=== PATIENT | female | born 1960 | race Caucasian/White ===

== ENCOUNTER 2021-05-03 10:26 | Inpatient (IN) | payer BC, OTHER ==
[~2021-05-03] VITALS: Ht 165.1 cm; Wt 102.1 kg
[2021-05-03] VITALS (10 sets, daily range): BP systolic 86–164; BP diastolic 54–95
[~2021-05-03 10:26] MED LIST: ALBU2.5V5 NEB; APIX5TAB PO; ESCITALOPRAM OX20 MG PO; FURO-68 PO; LEVO750T5 PO; NEBU-132 MC; OMEP20CA16 PO; PRIM50TA24 PO; QUET25TA5 PO
[2021-05-03] MEDS ORDERED: PROPOFOL 100 ML IV ONE (10:43)
[2021-05-03] MEDS ORDERED: SODIUM BICARB ADULT 8.4% 50 MEQ/50 ML DISP.SYRIN. ONE (11:00)
[2021-05-03] MEDS ORDERED: EPINEPHrine SYRINGE 1 MG/10 ML SYRINGE. ONE (11:00)
[2021-05-03] MEDS ORDERED: CALCIUM CHLORIDE 1,000 MG/10 ML DISP.SYRIN ONE (11:00)
[2021-05-03 11:05] LABS: BASO # 0.2 x10^3/uL (0.0-0.2); BASO % 1 % (0-3); EOS # 0.3 x10^3/uL (0.0-0.7); EOS % 2 % (0-3); HEMATOCRIT 33.2 % (36.0-47.0); HEMOGLOBIN 10.4 g/dL (12.0-15.5); LYMPH # 11.6 x10^3/uL (1.0-4.8); LYMPH % 57 % (24-48); MEAN CORPUSCULAR HEMOGLOBIN 28 pg (25-35); MEAN CORPUSCULAR HGB CONC 31 g/dL (31-37); MEAN CORPUSCULAR VOLUME 91 fL (79-100); MONO # 1.3 x10^3/uL (0.0-1.1); MONO % 7 % (0-9); NEUT # 6.8 x10^3/uL (1.8-7.7); NEUT % 34 % (31-73); PLATELET COUNT 322 x10^3/uL (140-400); RED BLOOD COUNT 3.65 x10^6/uL (3.50-5.40); RED CELL DISTRIBUTION WIDTH 14.3 % (11.5-14.5); WHITE BLOOD COUNT 20.2 x10^3/uL (4.0-11.0)
[2021-05-03 11:09] LABS: PROTHROMBIN TIME PATIENT 13.4 SEC (11.7-14.0)
[2021-05-03 11:11] LABS: ALBUMIN 2.7 g/dL (3.4-5.0); ALBUMIN/GLOBULIN RATIO 0.8 (1.0-1.7); CALCIUM 8.1 mg/dL (8.5-10.1); CREATININE 0.8 mg/dL (0.6-1.0); GFR 72.4; TOTAL BILIRUBIN 0.1 mg/dL (0.2-1.0); TOTAL PROTEIN 6.3 g/dL (6.4-8.2)
[2021-05-03 11:13] LABS: D-DIMER 2.06 ug/mlFEU (0.00-0.50)
[2021-05-03 11:14] LABS: POTASSIUM 2.6 mmol/L (3.5-5.1)
[2021-05-03] MEDS ORDERED: NOREPINEPHRINE VIAL 8 MG in IV DEXTROSE 5% 250 ML IV ONE (11:15)
--- NOTE | 2021-05-03 11:17 | RAD ---
EXAM: Chest, single view. HISTORY: Shortness of breath. COMPARISON: 04/27/2021 FINDINGS: A frontal view of the chest is obtained. There is an endotracheal tube within the right sheron nstem bronchus. There is a nasogastric tube within the stomach. There has been interval increase in d iffuse interstitial infiltrate. No pleural effusion or pneumothorax is seen. There is a stable cardia c silhouette. IMPRESSION: 1. Right mainstem bronchus intubation. Endotracheal tube retraction by approximately 4 cm is recommen ded. 2. Increase in diffuse interstitial infiltrate. Findings were discussed with Noemy in the ED at 1115 hours on 05/03/2021. Electronically signed by: Lisa Griffin MD (05/03/2021 11:14 AM) [id number]
--- NOTE | 2021-05-03 11:23 | PHYS DOC ---
Past Medical History Past Medical History: CHF Past Surgical History: Other Additional Past Surgical Histo: recent trach scar Smoking Status: Never Smoker Alcohol Use: None Adult General Chief Complaint Chief Complaint: RESP ARREST HPI HPI Patient is a 61 year old female brought in by EMS as a cardiac arrest. History obtained from EMS and patient's family. Reportedly patient was just released from the hospital several days ago for a pseudomonal pneumonia and this morning started coughing up blood. Patient was feeling more short of breath so they called 911. Patient had a high CO2 for EMS and they were trying to place BiPAP on her and then noted that her heart rhythm was becoming bradycardic and then she lost pulses and EMS was started by EMS when [facility] of [facility]. Patient continued with chest compressions in the emergency department and was given 2 doses of epinephrine and patient was intubated promptly and shortly after being intubated she regained pulses. Patient is a full code per the family. Review of Systems Review of Systems Unable to be obtained due to her mental status Current Medications Current Medications Current Medications Medications (Trade) Dose Ordered Sig/Qing Start Time Stop Time Status Last Admin Dose Admin Norepinephrine Bitartrate 8 mg/ Dextrose 258 ml @ 19.35 mls/ hr 1X ONCE 05/03/21 11:15 05/04/21 00:34 05/03/21 11:20 19.35 MLS/HR Propofol 100 ml @ As Directed STK-MED ONCE 05/03/21 10:43 05/03/21 10:43 DC Allergies Allergies Allergies Coded Allergies Type Severity Reaction Last Updated Verified Penicillins Allergy Intermediate EDEMA 03/26/21 No latex Allergy Intermediate 03/26/21 Yes azithromycin Adverse Reaction Intermediate Anxiety 04/25/21 No Physical Exam Physical Exam Constitutional: Chest compressions being done HENT: Normocephalic, atraumatic Eyes: Pupils 4 mm and minimally reactive Neck: Old tracheostomy scar noted on anterior neck Cardiovascular: No pulses present Lungs & Thorax: Breath sounds minimally present with bagging Abdomen: No distention Skin: Cool and pale Back: No trauma Extremities: No edema Neurologic: Unresponsive Current Patient Data Vital Signs Vital Signs Date Time Temp Pulse Resp B/P (MAP) Pulse Ox O2 Delivery O2 Flow Rate FiO2 05/03/21 11:15 114 14 100/83 (89) 97 Ventilator 05/03/21 10:36 97.5 15.0 97.5 Lab Values Laboratory Tests Test 05/03/21 10:40 05/03/21 11:26 White Blood Count 20.2 x10^3/uL (4.0-11.0) H Red Blood Count 3.65 x10^6/uL (3.50-5.40) Hemoglobin 10.4 g/dL (12.0-15.5) L Hematocrit 33.2 % (36.0-47.0) L Mean Corpuscular Volume 91 fL (79-100) Mean Corpuscular Hemoglobin 28 pg (25-35) Mean Corpuscular Hemoglobin Concent 31 g/dL (31-37) Red Cell Distribution Width 14.3 % (11.5-14.5) Platelet Count 322 x10^3/uL (140-400) Neutrophils (%) (Auto) 34 % (31-73) Lymphocytes (%) (Auto) 57 % (24-48) H Monocytes (%) (Auto) 7 % (0-9) Eosinophils (%) (Auto) 2 % (0-3) Basophils (%) (Auto) 1 % (0-3) Neutrophils # (Auto) 6.8 x10^3/uL (1.8-7.7) Lymphocytes # (Auto) 11.6 x10^3/uL (1.0-4.8) H Monocytes # (Auto) 1.3 x10^3/uL (0.0-1.1) H Eosinophils # (Auto) 0.3 x10^3/uL (0.0-0.7) Basophils # (Auto) 0.2 x10^3/uL (0.0-0.2) Segmented Neutrophils % 36 % (35-66) Band Neutrophils % 4 % (0-9) Lymphocytes % 52 % (24-48) H Monocytes % 5 % (0-10) Eosinophils % 1 % (0-5) Metamyelocytes % 2 % (0-0) H Smudge Cells Present Platelet Estimate Adequate (ADEQUATE) Anisocytosis Slight Prothrombin Time 13.4 SEC (11.7-14.0) Prothrombin Time INR 1.0 (0.8-1.1) Activated Partial Thromboplast Time 34 SEC (24-38) D-Dimer (Eun) 2.06 ug/mlFEU (0.00-0.50) H Sodium Level 141 mmol/L (136-145) Potassium Level 2.6 mmol/L (3.5-5.1) *L Chloride Level 101 mmol/L (98-107) Carbon Dioxide Level 32 mmol/L (21-32) Anion Gap 8 (6-14) Blood Urea Nitrogen 5 mg/dL (7-20) L Creatinine 0.8 mg/dL (0.6-1.0) Estimated GFR (Cockcroft-Gault) 72.4 BUN/Creatinine Ratio 6 (6-20) Glucose Level 266 mg/dL (70-99) H Lactic Acid Level 6.9 mmol/L (0.4-2.0) *H Calcium Level 8.1 mg/dL (8.5-10.1) L Total Bilirubin 0.1 mg/dL (0.2-1.0) L Aspartate Amino Transferase (AST) 34 U/L (15-37) Alanine Aminotransferase (ALT) 31 U/L (14-59) Alkaline Phosphatase 73 U/L (46-116) Troponin I High Sensitivity 18 ng/L (4-50) FE-Nee-K-Type Natriuretic Peptide 481 pg/mL (0-124) H Total Protein 6.3 g/dL (6.4-8.2) L Albumin 2.7 g/dL (3.4-5.0) L Albumin/Globulin Ratio 0.8 (1.0-1.7) L Lipase 74 U/L (73-393) Influenza Type A Antigen Negative (NEGATIVE) Influenza Type B Antigen Negative (NEGATIVE) SARS-CoV-2 Antigen (Rapid) Negative (NEGATIVE) Laboratory Tests 05/03/21 10:40 Laboratory Tests 05/03/21 10:40 EKG EKG Sinus tachycardia at 140 bpm with leftward axis no ST elevation or depression normal T waves Radiology/Procedures Radiology/Procedures Indication: Respiratory failure Consent: Unable to give consent due to emergent nature. Medications Used: see nursing note Procedure: The patient was placed in the appropriate position. Intubation was performed glide scope visualization with a 7.5 ET tube endotracheal tube. ET tube secured at 22 cm at the lip. Initial confirmation of placement included bilateral breath sounds, tube fogging, adequate chest rise, adequate pulse oximetry reading. A chest x-ray to verify correct placement of the tube showed appropriate tube position. The patient tolerated the procedure well. Complications Initial right stem mainstream bronchus that was withdrawn and improved position confirmed with repeat chest x-ray Indication: Vascular access Consent: The patient provided consent for this procedure. Procedure: The patient was positioned appropriately and the skin over the R IJ VEIN was prepped and draped in a sterile fashion. Local anesthesia was used. U ltrasound guidance utilized. A large bore needle was used to identify the vein. A guide wire was then inserted into the vein through the needle. A triple lumen catheter was then inserted into the vessel over the guide wire using the Seldinger technique. All ports showed good, free flowing blood return and were flushed with saline solution. The catheter was then securely fastened to the skin with sutures and covered with a sterile dressing. A post procedure X-ray was ordered. The patient tolerated the procedure well. Complications: none. [] Course & Med Decision Making Course & Med Decision Making Patient has abnormal work-up with signs of pneumonia in addition to elevated D- dimer hypokalemia and lactic acidosis. Patient started on cefepime and vancomycin and her electrolytes are going to be replaced. Patient did require central line as her MAP dropped below 60 and pressors were started. Patient will be admitted to the ICU in critical condition and family is aware. Dragon Disclaimer Dragon Disclaimer This electronic medical record was generated, in whole or in part, using a voice recognition dictation system. Departure Departure Impression: Primary Impression: Respiratory failure, acute Additional Impressions: Pneumonia Septic shock Lactic acidosis Hypokalemia Cardiac arrest Disposition: ADMITTED INPATIENT Admitting Physician: MIGUEL Cummings) Condition: CRITICAL Referrals: CHRISTOPHER FRENCH MD (PCP) Problem Qualifiers Primary Impression: Respiratory failure, acute Respiratory failure complication: hypoxia and hypercapnia Qualified Codes: J96.01 - Acute respiratory failure with hypoxia; J96.02 - Acute respiratory failure with hypercapnia NOEMI VACA DO May 03, 2021 11:23
--- NOTE | 2021-05-03 11:41 | RAD ---
EXAM: Chest, single view. HISTORY: Central line placement and endotracheal tube repositioning. COMPARISON: 05/03/2021 FINDINGS: A frontal view of the chest is obtained. There has been repositioning of an endotracheal tu be into the distal trachea. The tip is now approximately 1.5 cm from the perry. There is a right int ernal jugular catheter with the tip overlying the expected location of the superior cavoatrial juncti on. There is stable diffuse infiltrate. There is no pleural effusion or pneumothorax. The heart is st able in size. IMPRESSION: 1. Right internal jugular catheter with the tip overlying the expected location of the superior cavoa trial junction. 2. Interval repositioning of the endotracheal tube into the distal trachea. 3. Stable diffuse infiltrate. Electronically signed by: Lisa Griffin MD (05/03/2021 11:39 AM) [id number]
--- NOTE | 2021-05-03 11:44 | EKG ---
[facility] [address] [place] [address] Test Date: 2021-05-03 Test Time: 10:45:33 Pat Name: TENZIN HENLEY Department: Room: Gender: F Chronic Disease Epidemiologist: : 1960 Requested By: NOEMI VACA Order Number: [id number] Reading MD: Kishan Cutler Measurements Intervals [facility] Rate: 140 P: [place]: QRS: 0 QRSD: 78 T: 62 QT: 328 QTc: 505 Interpretive Statements SINUS RHYTHM LEFTWARD AXIS PACS Electronically Signed On 05-05-2021 16:16:24 STRUCTURAL DESIGNER by Kishan Cutler
[2021-05-03] MEDS ORDERED: PROPOFOL 100 ML IV PRN (11:45)
[2021-05-03] MEDS: IV NORMAL SALINE 1000ML BAG 1,000 ML IV SCH ×4 (11:45→23:45)
[2021-05-03] MEDS ORDERED: IV NORMAL SALINE 1000ML BAG 1,000 ML IV ONE ×2 (11:45)
[2021-05-03] MEDS ORDERED: VANCOMYCIN 1.5 GM in IV NORMAL SALINE 500ML BAG 500 ML IV ONE (11:45)
[2021-05-03] MEDS ORDERED: CEFEPIME HCL IV Push 2 GM VIAL. IVP ONE (11:45)
[2021-05-03] MEDS ORDERED: PROPOFOL 10 MG/ML (20ML) VIAL. IV ONE (11:45)
[2021-05-03 11:48] LABS: BASE EXCESS COOX 4 mmol/L (-3-3); HCO3 COOX 30 mmol/L (21-28); METHEMOGLOBIN 0.3 % (0.0-1.9); OXYHEMOGLOBIN 95.1 %; PCO2 COOX 47 mmHg (35-46); PO2 COOX 83 mmHg (65-108); SAT O2 COOX 96 % (92-99)
[2021-05-03] MEDS ORDERED: MAGNESIUM SULFATE 2GM 50 ML IV ONE (12:00)
[2021-05-03] MEDS ORDERED: ONDANSETRON PF 4 MG/2 ML VIAL. IVP PRN (12:00)
[2021-05-03] MEDS ORDERED: 0.9 % SODIUM CHLORIDE 10 ML DISP.SYRIN. IV PRN (12:00)
[2021-05-03] MEDS ORDERED: POTASSIUM CHLORIDE 20MEQ 100 ML IV SCH (12:00)
[2021-05-03] MEDS ORDERED: CALCIUM CARBONATE 500 MG TAB.CHEW PO PRN (12:00)
[2021-05-03] MEDS ORDERED: VANCOMYCIN 2 GM in IV NORMAL SALINE 500ML BAG 500 ML IV ONE (12:00)
[2021-05-03] MEDS ORDERED: POTASSIUM BICARB 20 MEQ EFFERVESCENT TABLET. NG ONE (12:00)
[2021-05-03 12:06] LABS: % BANDS 4 % (0-9); % EOS 1 % (0-5); % LYMPHS 52 % (24-48); % METAS 2 % (0-0); % MONOS 5 % (0-10); % SEGS 36 % (35-66); ANISOCYTOSIS SLIGHT; PLT ESTIMATE ADEQUATE (ADEQUATE)
[2021-05-03 12:07] LABS: SMUDGE CELLS PRESENT
[2021-05-03] MEDS: POTASSIUM CHLORIDE 20MEQ 100 ML IV SCH ×4 (12:13→15:57)
[2021-05-03 12:21] LABS: INFLUENZA A PATIENT NEGATIVE (NEGATIVE); INFLUENZA B PATIENT NEGATIVE (NEGATIVE)
[2021-05-03] MEDS ORDERED: VECURONIUM BOLUS 10 MG VIAL. IV PRN (12:45)
[2021-05-03] MEDS ORDERED: CONTRAST GIVEN. MC PRN (13:00)
[2021-05-03] MEDS ORDERED: IOHEXOL 350 MG/ML 100 ML VIAL. IV ONE (13:00)
--- NOTE | 2021-05-03 13:19 | RAD ---
PQRS Compliance Statement: One or more of the following individualized dose reduction techniques were utilized for this examinat ion: 1. Automated exposure control 2. Adjustment of the mA and/or kV according to patient size 3. Use of iterative reconstruction technique CTA CHEST 05/03/2021 12:48 PM INDICATION: Elevated d-dimer. Hemoptysis. COMPARISON: CT chest 04/25/2021 TECHNIQUE: Axial CT images of the chest were obtained after the intravenous administration of nonioni c contrast. Coronal and sagittal reformats are provided. Maximum intensity projection images of the t horacic vasculature are provided. FINDINGS: The thyroid gland is normal in appearance. Endotracheal tube terminates below the level of the thorac ic inlet no above the level of the perry. Nasogastric tubes identified coursing below the diaphragm with the distal tip terminating in the stomach. Heart size within normal limits. Right IJ central radha ous catheter is identified with the distal tip terminating the superior right atrium. Stable precarin al lymph node measuring 1.1 cm.. The heart size is within normal limits. No significant pericardial e ffusion. Thoracic aorta is normal in course and caliber. There is inadequate opacification of the pulmonary arterial system. No definite central embolus. Segm ental and subsegmental pulmonary arteries are also limited by respiratory motion. Progression of severe predominantly alveolar airspace disease with diffuse consolidative changes invo lving the upper lobes. There is persistent consolidation within the left lower lobe. Central airways are otherwise clear. Gallbladder surgically absent. No suspicious osseous lesions are visualized. Evaluation of the sternu m limited by motion. IMPRESSION: Suboptimal evaluation of the pulmonary arterial system secondary to poor contrast bolus and respirato ry motion. No central embolus is identified within the main pulmonary artery. There is progression of diffuse alveolar airspace disease with increased consolidative change in the upper lobes. Findings favor worsening pneumonia. Findings most suggestive of ARDS. Electronically signed by: Nerissa Arnold MD (05/03/2021 1:17 PM) [facility]
[2021-05-03] MEDS: MIDAZOLAM 100mg/100ml NS BAG 100 ML IV PRN ×2 (13:42→23:15)
[2021-05-03] MEDS ORDERED: DEXTROSE 50% 25 GM / 50ML DISP.SYRIN. IV PRN (15:15)
[2021-05-03] MEDS ORDERED: PIP/TAZO PER PHARMACY MC PRN (15:15)
--- NOTE | 2021-05-03 15:16 | PDOC1 ---
History and Physical Date of Service: DOS: DATE: 05/03/21 TIME: 15:05 Chief Complaint: Chief Complain: s/p cardiac arrest History of Present Illness: HPI: Patient intubated and sedated emergency room thus HPI obtained from ER Patient is a 61 year old female brought in by EMS as a cardiac arrest. History obtained from EMS and patient's family. Reportedly patient was just released from the hospital several days ago for a pseudomonal pneumonia and this morning started coughing up blood. Patient was feeling more short of breath so they called 911. Patient had a high CO2 for EMS and they were trying to place BiPAP on her and then noted that her heart rhythm was becoming bradycardic and then she lost pulses and EMS was started by EMS when they were just at [place] outside of [facility]. Patient continued with chest compressions in the emergency department and was given 2 doses of epinephrine and patient was intubated promptly and shortly after being intubated she regained pulses. Patient is a full code per the family. Past Medical/Surgical History: PMH/PSH: CHF Allergies: Allergies: Coded Allergies: Penicillins (Unverified Allergy, Intermediate, EDEMA, 03/26/21) latex (Verified Allergy, Intermediate, 03/26/21) azithromycin (Unverified Adverse Reaction, Intermediate, Anxiety, 04/25/21) Family History: Family History: Cannot obtain Social History: Social History: Cannot obtain Current Medications: Current Medications Current Medications Propofol 100 ml @ As Directed STK-MED ONCE IV ; Start 05/03/21 at 10:43; Stop 05/03/21 at 10:43; Status DC Norepinephrine Bitartrate 8 mg/ Dextrose 258 ml @ 19.35 mls/ hr 1X ONCE IV Last administered on 05/03/21at 11:20; Start 05/03/21 at 11:15; Stop 05/04/21 at 00:34 Propofol (Diprivan) 200 mg TITRATE ONCE IV ; Start 05/03/21 at 11:45; Stop 05/03/21 at 11:46; Status UNV Propofol 100 ml @ 3 mls/hr CONT PRN IV PER PROTOCOL Last administered on 05/03/21at 10:50; Start 05/03/21 at 11:45; Stop 05/03/21 at 12:49; Status DC Cefepime HCl (Maxipime) 2 gm 1X ONCE IVP Last administered on 05/03/21at 11:45; Start 05/03/21 at 11:45; Stop 05/03/21 at 11:46; Status DC Vancomycin HCl 1.5 gm/Sodium Chloride 500 ml @ 250 mls/hr 1X ONCE IV ; Start 05/03/21 at 11:45; Stop 05/03/21 at 13:44; Status UNV Sodium Chloride 1,000 ml @ 1,000 mls/hr 1X ONCE IV Last administered on 05/03/21at 10:50; Start 05/03/21 at 11:45; Stop 05/03/21 at 12:44; Status DC Sodium Chloride 1,000 ml @ 1,000 mls/hr 1X ONCE IV Last administered on 05/03/21at 11:00; Start 05/03/21 at 11:45; Stop 05/03/21 at 12:44; Status DC Sodium Chloride 1,000 ml @ 250 mls/hr Q4H IV Last administered on 05/03/21at 11:45; Start 05/03/21 at 11:45; Stop 05/04/21 at 11:44 Vancomycin HCl 2 gm/Sodium Chloride 500 ml @ 250 mls/hr 1X ONCE IV Last administered on 05/03/21at 12:00; Start 05/03/21 at 12:00; Stop 05/03/21 at 13:59; Status DC Potassium Bicarbonate (Potassium Effervescent Tablet) 40 meq 1X ONCE NG ; Start 05/03/21 at 12:00; Stop 05/03/21 at 12:01; Status DC Potassium Chloride/Water 100 ml @ 100 mls/hr Q1H IV ; Start 05/03/21 at 12:00; Stop 05/03/21 at 12:04; Status DC Apixaban (Eliquis) 5 mg BID PO ; Start 05/03/21 at 21:00 Primidone (Mysoline) 50 mg DAILY PO ; Start 05/04/21 at 09:00 Quetiapine Fumarate (SEROquel) 25 mg BID PO ; Start 05/03/21 at 21:00 Citalopram Hydrobromide (CeleXA) 20 mg DAILY PO ; Start 05/04/21 at 09:00 Pantoprazole Sodium (PROTONIX VIAL for IV PUSH) 40 mg DAILYAC IVP ; Start 05/04/21 at 07:30 Potassium Chloride/Water 100 ml @ 100 mls/hr Q1H IV Last administered on 05/03/21at 13:43; Start 05/03/21 at 12:00; Stop 05/03/21 at 13:59; Status DC Magnesium Sulfate 50 ml @ 25 mls/hr 1X ONCE IV ; Start 05/03/21 at 12:00; Stop 05/03/21 at 13:59; Status DC Ondansetron HCl (Zofran) 4 mg PRN Q6HRS PRN IVP NAUSEA/VOMITING; Start 05/03/21 at 12:00 Calcium Carbonate/ Glycine (Tums) 500 mg PRN Q3HRS PRN PO HEARTBURN / GAS; Start 05/03/21 at 12:00 Info (Icu Electrolyte Protocol) 1 ea DAILY MC ; Start 05/04/21 at 09:00 Sodium Chloride (Normal Saline Flush) 3 ml QSHIFT PRN IV AFTER MEDS AND BLOOD DRAWS; Start 05/03/21 at 12:00 Potassium Chloride/Water 100 ml @ 100 mls/hr Q1H IV ; Start 05/03/21 at 14:00; Stop 05/03/21 at 15:59 Fentanyl Citrate 30 ml @ 2.5 mls/hr CONT PRN IV SEE PROTOCOL Last administered on 05/03/21at 13:42; Start 05/03/21 at 12:45 Midazolam HCl 100 ml @ 1 mls/hr CONT PRN IV SEE PROTOCOL Last administered on 05/03/21at 13:42; Start 05/03/21 at 12:45 Propofol 100 ml @ 3 mls/hr CONT PRN IV PER PROTOCOL; Start 05/03/21 at 12:45 Vecuronium [place] (Norcuron Bolus) 6 mg PRN 1X PRN IV VENT INDUCTION; Start 05/03/21 at 12:45; Stop 05/04/21 at 12:44 Dexmedetomidine HCl 400 mcg/ Sodium Chloride 100 ml @ 7,500 mls/hr CONT PRN IV PER PROTOCOL; Start 05/03/21 at 12:45 Iohexol (Omnipaque 350 Mg/ml) 100 ml 1X ONCE IV Last administered on 05/03/21at 12:58; Start 05/03/21 at 13:00; Stop 05/03/21 at 13:01; Status DC Info (CONTRAST GIVEN -- Rx MONITORING) 1 each PRN DAILY PRN MC SEE COMMENTS; Start 05/03/21 at 13:00; Stop 05/05/21 at 12:59 Active Scripts Active Easy Neb Compressor Nebulizer (Nebulizer and Compressor) 1 Each Each Each MC PRN PRN Use with albuterol as needed every 4 hours Albuterol Sulfate Neb Soln (Albuterol Sulfate) 2.5 Mg/3 Ml Vial.neb 1 Vial NEB PRN Q4HRS PRN 30 Days Levofloxacin 750 Mg Tablet 1 Tab PO DAILY 5 Days Reported Seroquel (Quetiapine Fumarate) 25 Mg Tablet 25 Mg PO BID Mysoline (Primidone) 50 Mg Tablet 50 Mg PO DAILY Escitalopram Oxalate 20 Mg Tablet 20 Mg PO DAILY Omeprazole 20 Mg Capsule.dr 20 Mg PO DAILY Eliquis (Apixaban) 5 Mg Tablet 5 Mg PO BID Lasix (Furosemide) 40 Mg Tablet 40 Mg PO DAILY ROS: Review of Systems Review of System Cannot obtain Physical Exam: Vital Signs: Vital Signs Date Time Temp Pulse Resp B/P (MAP) Pulse Ox O2 Delivery O2 Flow Rate FiO2 05/03/21 14:01 Mechanical Ventilator 05/03/21 13:59 97.7 101 20 107/65 100 97.7 05/03/21 10:36 15.0 Physcial Exam: GEN: Intubated sedated HEENT: Normal cephalic, atraumatic, external auditory canals are patent EYES: Extraocular muscles are intact, pupil are equally round and reactive to light and accommodation MUSCULOSKELETAL: Not moving extremities ENDOCRINE: No thyromegaly was palpated LYMPHATICS: No cervical chain or axillary nodes were noted HEMATOPOIETIC: No bruising NECK: Supple, no JVD, no thyromegaly was noted LUNGS: Coarse decreased air tree throughout HEART: RRR, S!, S2 present. Peripheral pulses intact, no obvious murmurs noted ABDOMEN: Soft, nontender. Positive bowel sounds, no organomegaly, normal bowel sounds EXTREMITIES: Without clubbing, cyanosis, or edema. Pedal pulses intact. Neg ative Homans sign NEUROLOGIC: Intubated sedated SKIN: No ulcerations or rashes, good skin turgor, no jaundice VASCULAR: Good capillary refill, neurovascular bundle appears to be intact Labs: Labs: Laboratory Tests Test 05/03/21 10:40 05/03/21 11:26 White Blood Count 20.2 x10^3/uL (4.0-11.0) Red Blood Count 3.65 x10^6/uL (3.50-5.40) Hemoglobin 10.4 g/dL (12.0-15.5) Hematocrit 33.2 % (36.0-47.0) Mean Corpuscular Volume 91 fL (79-100) Mean Corpuscular Hemoglobin 28 pg (25-35) Mean Corpuscular Hemoglobin Concent 31 g/dL (31-37) Red Cell Distribution Width 14.3 % (11.5-14.5) Platelet Count 322 x10^3/uL (140-400) Neutrophils (%) (Auto) 34 % (31-73) Lymphocytes (%) (Auto) 57 % (24-48) Monocytes (%) (Auto) 7 % (0-9) Eosinophils (%) (Auto) 2 % (0-3) Basophils (%) (Auto) 1 % (0-3) Neutrophils # (Auto) 6.8 x10^3/uL (1.8-7.7) Lymphocytes # (Auto) 11.6 x10^3/uL (1.0-4.8) Monocytes # (Auto) 1.3 x10^3/uL (0.0-1.1) Eosinophils # (Auto) 0.3 x10^3/uL (0.0-0.7) Basophils # (Auto) 0.2 x10^3/uL (0.0-0.2) Segmented Neutrophils % 36 % (35-66) Band Neutrophils % 4 % (0-9) Lymphocytes % 52 % (24-48) Monocytes % 5 % (0-10) Eosinophils % 1 % (0-5) Metamyelocytes % 2 % (0-0) Smudge Cells Present Platelet Estimate Adequate (ADEQUATE) Anisocytosis Slight Prothrombin Time 13.4 SEC (11.7-14.0) Prothromb Time International Ratio 1.0 (0.8-1.1) Activated Partial Thromboplast Time 34 SEC (24-38) D-Dimer (Eun) 2.06 ug/mlFEU (0.00-0.50) Sodium Level 141 mmol/L (136-145) Potassium Level 2.6 mmol/L (3.5-5.1) Chloride Level 101 mmol/L (98-107) Carbon Dioxide Level 32 mmol/L (21-32) Anion Gap 8 (6-14) Blood Urea Nitrogen 5 mg/dL (7-20) Creatinine 0.8 mg/dL (0.6-1.0) Estimated GFR (Cockcroft-Gault) 72.4 BUN/Creatinine Ratio 6 (6-20) Glucose Level 266 mg/dL (70-99) Lactic Acid Level 6.9 mmol/L (0.4-2.0) Calcium Level 8.1 mg/dL (8.5-10.1) Total Bilirubin 0.1 mg/dL (0.2-1.0) Aspartate Amino Transf (AST/SGOT) 34 U/L (15-37) Alanine Aminotransferase (ALT/SGPT) 31 U/L (14-59) Alkaline Phosphatase 73 U/L (46-116) Troponin I High Sensitivity 18 ng/L (4-50) DI-Xwk-X-Type Natriuretic Peptide 481 pg/mL (0-124) Total Protein 6.3 g/dL (6.4-8.2) Albumin 2.7 g/dL (3.4-5.0) Albumin/Globulin Ratio 0.8 (1.0-1.7) Lipase 74 U/L (73-393) Influenza Type A Antigen Negative (NEGATIVE) Influenza Type B Antigen Negative (NEGATIVE) SARS-CoV-2 Antigen (Rapid) Negative (NEGATIVE) Laboratory Tests Test 05/03/21 10:40 05/03/21 11:26 White Blood Count 20.2 x10^3/uL (4.0-11.0) Red Blood Count 3.65 x10^6/uL (3.50-5.40) Hemoglobin 10.4 g/dL (12.0-15.5) Hematocrit 33.2 % (36.0-47.0) Mean Corpuscular Volume 91 fL (79-100) Mean Corpuscular Hemoglobin 28 pg (25-35) Mean Corpuscular Hemoglobin Concent 31 g/dL (31-37) Red Cell Distribution Width 14.3 % (11.5-14.5) Platelet Count 322 x10^3/uL (140-400) Neutrophils (%) (Auto) 34 % (31-73) Lymphocytes (%) (Auto) 57 % (24-48) Monocytes (%) (Auto) 7 % (0-9) Eosinophils (%) (Auto) 2 % (0-3) Basophils (%) (Auto) 1 % (0-3) Neutrophils # (Auto) 6.8 x10^3/uL (1.8-7.7) Lymphocytes # (Auto) 11.6 x10^3/uL (1.0-4.8) Monocytes # (Auto) 1.3 x10^3/uL (0.0-1.1) Eosinophils # (Auto) 0.3 x10^3/uL (0.0-0.7) Basophils # (Auto) 0.2 x10^3/uL (0.0-0.2) Segmented Neutrophils % 36 % (35-66) Band Neutrophils % 4 % (0-9) Lymphocytes % 52 % (24-48) Monocytes % 5 % (0-10) Eosinophils % 1 % (0-5) Metamyelocytes % 2 % (0-0) Smudge Cells Present Platelet Estimate Adequate (ADEQUATE) Anisocytosis Slight Prothrombin Time 13.4 SEC (11.7-14.0) Prothromb Time International Ratio 1.0 (0.8-1.1) Activated Partial Thromboplast Time 34 SEC (24-38) D-Dimer (Eun) 2.06 ug/mlFEU (0.00-0.50) Sodium Level 141 mmol/L (136-145) Potassium Level 2.6 mmol/L (3.5-5.1) Chloride Level 101 mmol/L (98-107) Carbon Dioxide Level 32 mmol/L (21-32) Anion Gap 8 (6-14) Blood Urea Nitrogen 5 mg/dL (7-20) Creatinine 0.8 mg/dL (0.6-1.0) Estimated GFR (Cockcroft-Gault) 72.4 BUN/Creatinine Ratio 6 (6-20) Glucose Level 266 mg/dL (70-99) Lactic Acid Level 6.9 mmol/L (0.4-2.0) Calcium Level 8.1 mg/dL (8.5-10.1) Total Bilirubin 0.1 mg/dL (0.2-1.0) Aspartate Amino Transf (AST/SGOT) 34 U/L (15-37) Alanine Aminotransferase (ALT/SGPT) 31 U/L (14-59) Alkaline Phosphatase 73 U/L (46-116) Troponin I High Sensitivity 18 ng/L (4-50) YW-Hpt-J-Type Natriuretic Peptide 481 pg/mL (0-124) Total Protein 6.3 g/dL (6.4-8.2) Albumin 2.7 g/dL (3.4-5.0) Albumin/Globulin Ratio 0.8 (1.0-1.7) Lipase 74 U/L (73-393) Influenza Type A Antigen Negative (NEGATIVE) Influenza Type B Antigen Negative (NEGATIVE) SARS-CoV-2 Antigen (Rapid) Negative (NEGATIVE) Assessment/Plan Assessment/Plan Acute hypoxic respiratory failure secondary to likely bacterial pneumonia versus viral pneumonia, septic shock, lactic acidosis -Presented after cardiac arrest at home. Just released from hospital for reported Pseudomonas pneumonia treatment. -Patient intubated and sedated. pulm consult for vent management -Broad-spectrum antibiotics Vanco cefepime for Pseudomonas and possible MRSA given recent admission -Pulmonary embolism on CT scan -Continue supportive measures -She is full code -DVT prophylaxis -Try to contact family for more information and obtain records from recent hospitalization Justifications for Admission Other Justification VIVIAN MULLINS MD May 03, 2021 15:16
[2021-05-03] MEDS ORDERED: CEFEPIME HCL IV Push 1 GM VIAL. IVP SCH (15:30)
[2021-05-03] MEDS ORDERED: methylPREDNISolone SOD SUCC PF 125 MG/2 ML VIAL. IV ONE (15:30)
[2021-05-03] MEDS: VANCOMYCIN PER PHARMACY MC PRN (16:18)
--- NOTE | 2021-05-03 16:20 | NUR ---
Pharmacy Vancomycin Dosing Note S:Consulted to monitor and dose vancomycin started 05/03/21. O:TENZIN HENLEY is a 61 year old F with possible pneumonia and sepsis. Height: 5 feet, 5 inches Weight: 108.4 kg [place] Body Weight: 57.00 Adjusted Body Weight: 77.56 Dosing Weight: Actual Other Antibiotics: Cefepime LABS: Last BUN: 5 Last Creatinine: 0.8 Creatinine Clearance: 88 mL/min Last WBC: 20.2 Tmax (past 24 hours): 97.7 Microbiology: Blood cultures pending I/O: -/250 Last dose given 05/03/21 at 1200 Vancomycin Dosing: Loading Dose: 2000 mg x1 Dosing Weight: Actual Target Trough: 15-20 A: Based on: Patient's renal function, PMH, recent hospitalization (during which time was on vancomycin), and severity of suspected infection P: 1. Will initiate Vancomycin 1000 mg IV q12h maintenance dose 2. Follow up Trough level on 05/04/21 at 2330 3. Pharmacy will continue to monitor, follow and adjust therapy as needed. JOSEPH GUERRERO, [facility]MERLY [facility], 05/03/21 [id number]
[2021-05-03] MEDS: INSULIN LISPRO 300 UNITS/3 ML VIAL. SQ SCH (17:00)
--- NOTE | 2021-05-03 18:46 | CONS ---
DATE OF CONSULTATION: 05/03/2021 PULMONARY CONSULTATION ATTENDING PHYSICIAN: Jason Aguilar MD. REASON FOR CONSULTATION: Respiratory failure and cardiac arrest. HISTORY OF PRESENT ILLNESS: The patient is a 61-year-old female who is known to us from a recent hospitalization. She has past medical history of obesity. She was hospitalized at [facility] late November and early December. She was diagnosed with COVID-19 viral pneumonia. She was on mechanical ventilation and had subsequent tracheostomy due to persistent hypoxia. She was then discharged to LTAC. The patient subsequently was decannulated and was home on 2 liters. She required hospitalization at [facility] with respiratory failure. She was subsequently extubated and discharged home on oxygen just few days ago. She was brought into the hospital again today after 911 was called because of dyspnea. When the EMS arrived, they tried to place her on BiPAP. They noted that her rhythm became bradycardic and then she lost pulses. ACLS protocol was followed. She required 8 minutes of CPR and required 2 doses of epinephrine. The patient was intubated promptly and shortly after being intubated, she regained pulses. Post-intubation, arterial blood gases revealed a pH of 7.42, pCO2 of 47 and a pO2 of 83 on 100% FiO2. Hemoptysis was reported prior to arrival at the Emergency Room. The patient also had some bleeding from the endotracheal tube initially, which has slowed down. For unclear reasons, she was taking Eliquis at home. During the last hospitalization, I did not see any documentation of atrial fibrillation. She did not have any pulmonary embolism. The patient is currently in the ICU. I did the consultation via telemedicine. PAST MEDICAL HISTORY: Significant for, 1. Respiratory failure requiring prolonged hospitalization in late November and December at [facility]. COVID-19 viral pneumonia. Status post tracheostomy with subsequent decannulation. 2. Underlying obesity. 3. Hypertension. 4. Recent respiratory failure requiring mechanical ventilation. PAST SURGICAL HISTORY: Status post tracheostomy and decannulation. PEG tube placement and removal. ALLERGIES: PENICILLIN, AZITHROMYCIN, AND LATEX. MEDICATIONS: Reviewed as listed in the MRAD including vancomycin. She also received Solu-Medrol. REVIEW OF SYSTEMS: Unable to obtain as she is on the ventilator. PHYSICAL EXAMINATION: VITAL SIGNS: On examination which was done via telemedicine, blood pressure 107 systolic. Pulse is in the 90s. Pulse ox is 100% on FiO2 of 100% and 5 of PEEP. She has some blood-tinged secretions seen in the endotracheal tube. She is sedated on mechanical ventilation. ABDOMEN: Obese. EXTREMITIES: With 1+ pitting edema. LABORATORY DATA: Reviewed. ABGs showed a pH of 7.42, pCO2 of 47 and pO2 of 83, on 100% FiO2. Her influenza screen and COVID rapid is negative. Lactic acid was 6.9, now 0.8. ProBNP is 481. Troponin 125, which has gone from 18 to 125. White cell count 20.2, hemoglobin 10.4, and platelets are 322. CTA chest was reviewed and there was no evidence of central pulmonary emboli. There was progressive increase in the alveolar airspace opacities and increased consolidation in the upper lobes. IMPRESSION: 1. Acute hypoxic respiratory failure secondary to likely hypoxic respiratory arrest leading to cardiac arrest.This is her second intubation in a week, ? tracheal or sub- glottic stenosis contributing to mucous plug/ hypoxic respiratory arrest. 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 Now, she has progressive worsening of the infiltrates, especially in the upper lobes. This could be related to a component of aspiration pneumonia. 2. The patient with underlying history of COVID-19 viral pneumonia in late November and early December with chronic interstitial infiltrates. She required another hospitalization few weeks ago with respiratory failure, but was successfully extubated. 3. Status post tracheostomy followed by decannulation.. 4. Cannot exclude the possibility of subglottic stenosis contributing to respiratory arrest. 5. Underlying obesity. 6. Abnormal CT chest as discussed above. 7. Bleeding around the endotracheal tube. She had hemoptysis before coming to the hospital. Could be contributed by pneumonia as well as use of Eliquis at home. RECOMMENDATIONS: 1. We will continue with present assist control mode. She is currently on 100% FiO2. We will gradually wean FiO2, keep saturation 94% and above. 2. Continue empiric antibiotics. 3. Follow up chest x-rays to see any improvement in bilateral infiltrates, especially in the upper lobes. 4. Continue to hold Eliquis. We will ask Cardiology for any cardiac reason for her being on Eliquis. 5. We may need a CT of the neck to rule out any subglottic stenosis. 6. We will do SCDs for DVT prophylaxis and hold off Lovenox until endotracheal bleeding has completely resolved. 7. PPI for stress ulcer prophylaxis. 8. Discussed with RN. Chart reviewed, imaging studies reviewed. Total critical care time 40 minutes. ANTONIO/POLO DR: Rubi TID: [id number] MTDD
[2021-05-03] MEDS: QUEtiapine 25 MG TABLET. PO SCH (20:34)
[2021-05-03] MEDS ORDERED: APIXABAN 5 MG TABLET. PO SCH (21:00)
[2021-05-03] MEDS: CEFEPIME HCL IV Push 1 GM VIAL. IVP SCH (22:11)
[2021-05-04] VITALS (24 sets, daily range): BP systolic 80–190; BP diastolic 40–110
[2021-05-04] MEDS: VANCOMYCIN 1 GM in IV NORMAL SALINE 250ML 250 ML IV SCH ×2 (00:14→11:58)
[2021-05-04] MEDS: IV NORMAL SALINE 1000ML BAG 1,000 ML IV SCH ×2 (03:45→07:45)
[2021-05-04] MEDS: CEFEPIME HCL IV Push 1 GM VIAL. IVP SCH ×3 (05:13→22:13)
[2021-05-04 06:17] LABS: BASO % 0 % (0-3); EOS % 0 % (0-3); HEMATOCRIT 26.1 % (36.0-47.0); HEMOGLOBIN 8.5 g/dL (12.0-15.5); LYMPH # 1.3 x10^3/uL (1.0-4.8); LYMPH % 16 % (24-48); MEAN CORPUSCULAR HEMOGLOBIN 29 pg (25-35); MEAN CORPUSCULAR HGB CONC 33 g/dL (31-37); MEAN CORPUSCULAR VOLUME 88 fL (79-100); MONO # 0.4 x10^3/uL (0.0-1.1); MONO % 5 % (0-9); NEUT # 6.9 x10^3/uL (1.8-7.7); NEUT % 80 % (31-73); PLATELET COUNT 339 x10^3/uL (140-400); RED BLOOD COUNT 2.97 x10^6/uL (3.50-5.40); RED CELL DISTRIBUTION WIDTH 14.7 % (11.5-14.5); WHITE BLOOD COUNT 8.6 x10^3/uL (4.0-11.0)
[2021-05-04 06:34] LABS: CALCIUM 7.6 mg/dL (8.5-10.1); CREATININE 0.7 mg/dL (0.6-1.0); GFR 84.5; POTASSIUM 3.3 mmol/L (3.5-5.1)
[2021-05-04] MEDS: PANTOPRAZOLE IV PUSH 40 MG VIAL. IVP SCH (07:30)
[2021-05-04] MEDS: PRIMIDONE 50 MG TABLET PO SCH (07:51)
[2021-05-04] MEDS: CITALOPRAM 20 MG TABLET. PO SCH (07:51)
[2021-05-04] MEDS: POTASSIUM CHLORIDE 20MEQ 100 ML IV SCH ×2 (07:51→09:38)
[2021-05-04] MEDS: INSULIN LISPRO 300 UNITS/3 ML VIAL. SQ SCH ×3 (07:52→17:00)
[2021-05-04] MEDS: ELECTROLYTE (ICU) PROTOCOL. MC SCH (07:52)
[2021-05-04] MEDS: QUEtiapine 25 MG TABLET. PO SCH ×2 (07:53→21:00)
[2021-05-04] MEDS: VANCOMYCIN PER PHARMACY MC PRN ×2 (08:43→11:41)
[2021-05-04] MEDS: MIDAZOLAM 100mg/100ml NS BAG 100 ML IV PRN ×2 (09:38→19:44)
--- NOTE | 2021-05-04 10:49 | NUR ---
SS following for discharge planning. SS reviewed pt chart and discussed with pt RN. Pt is from home and is currently on the vent at 50%. COVID19 negative. Pt on Versed, Fentanyl, and Levophed. Pt on IV Vancomycin and IV Cefepime. Not ready. SS will continue to follow for discharge planning .
[2021-05-04 12:30] LABS: BASE EXCESS ABG 5 mmol/L (-3-3); HCO3 ABG 29 mmol/L (21-28); PCO2 ABG 42 mmHg (35-46); PO2 ABG 145 mmHg (65-108); SAT O2 ABG 98 % (92-99)
--- NOTE | 2021-05-04 12:31 | PDOC ---
PULMONARY PROGRESS NOTES DATE: 05/04/21 TIME: 12:29 Subjective Oxygen requirement is improving. Remains sedated and assist-control mode. Vitals Vital Signs Date Time Temp Pulse Resp B/P (MAP) Pulse Ox O2 Delivery O2 Flow Rate FiO2 05/04/21 11:00 69 20 104/57 97 Ventilator 05/04/21 08:00 98.4 98.4 05/03/21 23:48 15.0 Lungs: Clear Cardiovascular: S1 Abdomen: Soft Extremities: Other (1+) Labs Laboratory Tests Test 05/03/21 10:30 05/03/21 10:40 05/03/21 11:26 05/03/21 15:06 O2 Saturation 96 % (92-99) Arterial Blood pH 7.42 (7.35-7.45) Arterial Blood pCO2 at Patient Temp 47 mmHg (35-46) Arterial Blood pO2 at Patient Temp 83 mmHg (65-108) Arterial Blood HCO3 30 mmol/L (21-28) Arterial Blood Base Excess 4 mmol/L (-3-3) Oxyhemoglobin 95.1 % Methemoglobin 0.3 % (0.0-1.9) Carbon Monoxide, Quantitative 0.3 % (0.0-1.9) FiO2 100 White Blood Count 20.2 x10^3/uL (4.0-11.0) Red Blood Count 3.65 x10^6/uL (3.50-5.40) Hemoglobin 10.4 g/dL (12.0-15.5) Hematocrit 33.2 % (36.0-47.0) Mean Corpuscular Volume 91 fL (79-100) Mean Corpuscular Hemoglobin 28 pg (25-35) Mean Corpuscular Hemoglobin Concent 31 g/dL (31-37) Red Cell Distribution Width 14.3 % (11.5-14.5) Platelet Count 322 x10^3/uL (140-400) Neutrophils (%) (Auto) 34 % (31-73) Lymphocytes (%) (Auto) 57 % (24-48) Monocytes (%) (Auto) 7 % (0-9) Eosinophils (%) (Auto) 2 % (0-3) Basophils (%) (Auto) 1 % (0-3) Neutrophils # (Auto) 6.8 x10^3/uL (1.8-7.7) Lymphocytes # (Auto) 11.6 x10^3/uL (1.0-4.8) Monocytes # (Auto) 1.3 x10^3/uL (0.0-1.1) Eosinophils # (Auto) 0.3 x10^3/uL (0.0-0.7) Basophils # (Auto) 0.2 x10^3/uL (0.0-0.2) Segmented Neutrophils % 36 % (35-66) Band Neutrophils % 4 % (0-9) Lymphocytes % 52 % (24-48) Monocytes % 5 % (0-10) Eosinophils % 1 % (0-5) Metamyelocytes % 2 % (0-0) Smudge Cells Present Platelet Estimate Adequate (ADEQUATE) Anisocytosis Slight Prothrombin Time 13.4 SEC (11.7-14.0) Prothromb Time International Ratio 1.0 (0.8-1.1) Activated Partial Thromboplast Time 34 SEC (24-38) D-Dimer (Eun) 2.06 ug/mlFEU (0.00-0.50) Sodium Level 141 mmol/L (136-145) Potassium Level 2.6 mmol/L (3.5-5.1) Chloride Level 101 mmol/L (98-107) Carbon Dioxide Level 32 mmol/L (21-32) Anion Gap 8 (6-14) Blood Urea Nitrogen 5 mg/dL (7-20) Creatinine 0.8 mg/dL (0.6-1.0) Estimated GFR (Cockcroft-Gault) 72.4 BUN/Creatinine Ratio 6 (6-20) Glucose Level 266 mg/dL (70-99) Lactic Acid Level 6.9 mmol/L (0.4-2.0) 0.8 mmol/L (0.4-2.0) Calcium Level 8.1 mg/dL (8.5-10.1) Total Bilirubin 0.1 mg/dL (0.2-1.0) Aspartate Amino Transf (AST/SGOT) 34 U/L (15-37) Alanine Aminotransferase (ALT/SGPT) 31 U/L (14-59) Alkaline Phosphatase 73 U/L (46-116) Troponin I High Sensitivity 18 ng/L (4-50) 125 ng/L (4-50) KO-Mvg-E-Type Natriuretic Peptide 481 pg/mL (0-124) Total Protein 6.3 g/dL (6.4-8.2) Albumin 2.7 g/dL (3.4-5.0) Albumin/Globulin Ratio 0.8 (1.0-1.7) Lipase 74 U/L (73-393) Influenza Type A Antigen Negative (NEGATIVE) Influenza Type B Antigen Negative (NEGATIVE) SARS-CoV-2 RNA (FELIPA) Negative (Negative) SARS-CoV-2 Antigen (Rapid) Negative (NEGATIVE) Test 05/04/21 05:47 White Blood Count 8.6 x10^3/uL (4.0-11.0) Red Blood Count 2.97 x10^6/uL (3.50-5.40) Hemoglobin 8.5 g/dL (12.0-15.5) Hematocrit 26.1 % (36.0-47.0) Mean Corpuscular Volume 88 fL (79-100) Mean Corpuscular Hemoglobin 29 pg (25-35) Mean Corpuscular Hemoglobin Concent 33 g/dL (31-37) Red Cell Distribution Width 14.7 % (11.5-14.5) Platelet Count 339 x10^3/uL (140-400) Neutrophils (%) (Auto) 80 % (31-73) Lymphocytes (%) (Auto) 16 % (24-48) Monocytes (%) (Auto) 5 % (0-9) Eosinophils (%) (Auto) 0 % (0-3) Basophils (%) (Auto) 0 % (0-3) Neutrophils # (Auto) 6.9 x10^3/uL (1.8-7.7) Lymphocytes # (Auto) 1.3 x10^3/uL (1.0-4.8) Monocytes # (Auto) 0.4 x10^3/uL (0.0-1.1) Eosinophils # (Auto) 0.0 x10^3/uL (0.0-0.7) Basophils # (Auto) 0.0 x10^3/uL (0.0-0.2) Sodium Level 144 mmol/L (136-145) Potassium Level 3.3 mmol/L (3.5-5.1) Chloride Level 108 mmol/L (98-107) Carbon Dioxide Level 31 mmol/L (21-32) Anion Gap 5 (6-14) Blood Urea Nitrogen 10 mg/dL (7-20) Creatinine 0.7 mg/dL (0.6-1.0) Estimated GFR (Cockcroft-Gault) 84.5 Glucose Level 130 mg/dL (70-99) Calcium Level 7.6 mg/dL (8.5-10.1) Procalcitonin 0.19 ng/mL (0.00-0.10) Laboratory Tests Test 05/03/21 15:06 05/04/21 05:47 Lactic Acid Level 0.8 mmol/L (0.4-2.0) Troponin I High Sensitivity 125 ng/L (4-50) White Blood Count 8.6 x10^3/uL (4.0-11.0) Red Blood Count 2.97 x10^6/uL (3.50-5.40) Hemoglobin 8.5 g/dL (12.0-15.5) Hematocrit 26.1 % (36.0-47.0) Mean Corpuscular Volume 88 fL (79-100) Mean Corpuscular Hemoglobin 29 pg (25-35) Mean Corpuscular Hemoglobin Concent 33 g/dL (31-37) Red Cell Distribution Width 14.7 % (11.5-14.5) Platelet Count 339 x10^3/uL (140-400) Neutrophils (%) (Auto) 80 % (31-73) Lymphocytes (%) (Auto) 16 % (24-48) Monocytes (%) (Auto) 5 % (0-9) Eosinophils (%) (Auto) 0 % (0-3) Basophils (%) (Auto) 0 % (0-3) Neutrophils # (Auto) 6.9 x10^3/uL (1.8-7.7) Lymphocytes # (Auto) 1.3 x10^3/uL (1.0-4.8) Monocytes # (Auto) 0.4 x10^3/uL (0.0-1.1) Eosinophils # (Auto) 0.0 x10^3/uL (0.0-0.7) Basophils # (Auto) 0.0 x10^3/uL (0.0-0.2) Sodium Level 144 mmol/L (136-145) Potassium Level 3.3 mmol/L (3.5-5.1) Chloride Level 108 mmol/L (98-107) Carbon Dioxide Level 31 mmol/L (21-32) Anion Gap 5 (6-14) Blood Urea Nitrogen 10 mg/dL (7-20) Creatinine 0.7 mg/dL (0.6-1.0) Estimated GFR (Cockcroft-Gault) 84.5 Glucose Level 130 mg/dL (70-99) Calcium Level 7.6 mg/dL (8.5-10.1) Procalcitonin 0.19 ng/mL (0.00-0.10) Medications Active Scripts Medications Dose Route/Sig Max Daily Dose Days Date Category Dose Instructions Easy Neb Compressor Nebulizer (Nebulizer and Compressor) 1 Each Each Each MC PRN PRN 05/01/21 Rx Use with albuterol as needed every 4 hours Albuterol Sulfate Neb Soln (Albuterol Sulfate) 2.5 Mg/3 Ml Vial.neb 1 Vial NEB PRN Q4HRS PRN 30 05/01/21 Rx Levofloxacin 750 Mg Tablet 1 Tab PO DAILY 5 05/01/21 Rx Seroquel (Quetiapine Fumarate) 25 Mg Tablet 25 Mg PO BID 04/26/21 Reported Mysoline (Primidone) 50 Mg Tablet 50 Mg PO DAILY 04/26/21 Reported Escitalopram Oxalate 20 Mg Tablet 20 Mg PO DAILY 03/26/21 Reported Omeprazole 20 Mg Capsule.dr 20 Mg PO DAILY 03/26/21 Reported Eliquis (Apixaban) 5 Mg Tablet 5 Mg PO BID 03/26/21 Reported Lasix (Furosemide) 40 Mg Tablet 40 Mg PO DAILY 03/26/21 Reported Impression . 1. Acute hypoxic respiratory failure secondary to likely hypoxic respiratory arrest leading to cardiac arrest.This is her second intubation in a week, ? tracheal or sub- glottic stenosis contributing to mucous plug/ hypoxic respiratory arrest. 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 Now, she has progressive worsening of the infiltrates, especially in the upper lobes. This could be related to a component of aspiration pneumonia. 2. The patient with underlying history of COVID-19 viral pneumonia in late November and early December with chronic interstitial infiltrates. She required another hospitalization few weeks ago with respiratory failure, but was successfully extubated. 3. Status post tracheostomy followed by decannulation.. 4. Cannot exclude the possibility of subglottic stenosis contributing to respiratory arrest. 5. Underlying obesity. 6. Abnormal CT chest as discussed above. 7. Bleeding around the endotracheal tube. She had hemoptysis before coming to the hospital. Could be contributed by pneumonia as well as use of Eliquis at home. Page of Plan . RECOMMENDATIONS: 1. We will continue with present assist control mode. She is currently on 50% FiO2. We will gradually wean FiO2, keep saturation 94% and above. 2. Continue empiric antibiotics. 3. Follow up chest x-rays to see any improvement in bilateral infiltrates, especially in the upper lobes. 4. Continue to hold Eliquis. We will ask Cardiology for any cardiac reason for her being on Eliquis. Question history of A. fib. 5. We may need a CT of the neck to rule out any subglottic stenosis. 6. We will do SCDs for DVT prophylaxis and hold off Lovenox until endotracheal bleeding has completely resolved. 7. PPI for stress ulcer prophylaxis. 8. Discussed with RN. Chart reviewed, imaging studies reviewed. Total critical care time 30 minutes. JEFFREY LYONS MD May 04, 2021 12:31
[2021-05-04 12:32] LABS: FIO2 ABG 70% VENT
--- NOTE | 2021-05-04 13:13 | PDOC ---
[employer] PROGRESS NOTE Date of Service DOS: DATE: 05/04/21 TIME: 13:10 Chief Complaint Chief Complaint Respiratory failure Probable bacterial pneumonia Recent COVID-19 in November of last year Possible tracheal [place] History of tracheostomy with decannulation Chronic anticoagulation with some hemoptysis Septic shock Lactic acidosis Acute hypoxic respiratory failure secondary to likely bacterial pneumonia versus viral pneumonia, septic shock, lactic acidosis History of Present Illness History of Present Illness 05/04/2021 Patient seen and examined in the ICU She is currently on the vent AC/20/450/50 +5 of PEEP Chart reviewed Discussed with RN She is sedated with Versed fentanyl Has IV Levophed hanging Vitals/I&O Vitals/I&O: Vital Signs Date Time Temp Pulse Resp B/P (MAP) Pulse Ox O2 Delivery O2 Flow Rate FiO2 05/04/21 12:10 97 Ventilator 05/04/21 11:00 69 20 104/57 05/04/21 08:00 98.4 98.4 05/03/21 23:48 15.0 I & O 05/03/21 05/03/21 05/04/21 15:00 23:00 07:00 Intake Total 2908.2 ml 1703.42 ml Output Total 500 ml 1000 ml 575 ml Balance -500 ml 1908.2 ml 1128.42 ml Physical Exam General: Other (Sedated on the vent) Heart: Other (Tachycardic) Lungs: Clear Abdomen: Normal bowel sounds Extremities: No clubbing Skin: No rashes Labs Labs: Laboratory Tests Test 05/03/21 15:06 05/04/21 05:47 05/04/21 08:00 Lactic Acid Level 0.8 mmol/L (0.4-2.0) Troponin I High Sensitivity 125 ng/L (4-50) White Blood Count 8.6 x10^3/uL (4.0-11.0) Red Blood Count 2.97 x10^6/uL (3.50-5.40) Hemoglobin 8.5 g/dL (12.0-15.5) Hematocrit 26.1 % (36.0-47.0) Mean Corpuscular Volume 88 fL (79-100) Mean Corpuscular Hemoglobin 29 pg (25-35) Mean Corpuscular Hemoglobin Concent 33 g/dL (31-37) Red Cell Distribution Width 14.7 % (11.5-14.5) Platelet Count 339 x10^3/uL (140-400) Neutrophils (%) (Auto) 80 % (31-73) Lymphocytes (%) (Auto) 16 % (24-48) Monocytes (%) (Auto) 5 % (0-9) Eosinophils (%) (Auto) 0 % (0-3) Basophils (%) (Auto) 0 % (0-3) Neutrophils # (Auto) 6.9 x10^3/uL (1.8-7.7) Lymphocytes # (Auto) 1.3 x10^3/uL (1.0-4.8) Monocytes # (Auto) 0.4 x10^3/uL (0.0-1.1) Eosinophils # (Auto) 0.0 x10^3/uL (0.0-0.7) Basophils # (Auto) 0.0 x10^3/uL (0.0-0.2) Sodium Level 144 mmol/L (136-145) Potassium Level 3.3 mmol/L (3.5-5.1) Chloride Level 108 mmol/L (98-107) Carbon Dioxide Level 31 mmol/L (21-32) Anion Gap 5 (6-14) Blood Urea Nitrogen 10 mg/dL (7-20) Creatinine 0.7 mg/dL (0.6-1.0) Estimated GFR (Cockcroft-Gault) 84.5 Glucose Level 130 mg/dL (70-99) Calcium Level 7.6 mg/dL (8.5-10.1) Procalcitonin 0.19 ng/mL (0.00-0.10) O2 Saturation 98 % (92-99) Arterial Blood pH 7.47 (7.35-7.45) Arterial Blood pCO2 at Patient Temp 42 mmHg (35-46) Arterial Blood pO2 at Patient Temp 145 mmHg (65-108) Arterial Blood HCO3 29 mmol/L (21-28) Arterial Blood Base Excess 5 mmol/L (-3-3) FiO2 70% vent Assessment and Plan Assessmemt and Plan Problems Medical Problems: (1) Cardiac arrest Status: Acute (2) Hypokalemia Status: Acute (3) Lactic acidosis Status: Acute (4) Pneumonia Status: Acute (5) Respiratory failure, acute Status: Acute (6) Septic shock Status: Acut Respiratory failure Probable bacterial pneumonia Recent COVID-19 in November of last year Possible tracheal [place] History of tracheostomy with decannulation Chronic anticoagulation with some hemoptysis Septic shock Lactic acidosis Acute hypoxic respiratory failure secondary to likely bacterial pneumonia versus viral pneumonia, septic shock, lactic acidosis Plan ICU monitoring Vent weaning IV antibiotics Continue sedation with Versed and fentanyl Maintenance IV Trying to wean off Levophed Supportive halfway meds if possible Trend labs Appreciate subspecialist input DVT prophylaxis Full code CC time 31 minutes Per pulmonary recommendations please see the following and we certainly agree and appreciate their input; 1. Acute hypoxic respiratory failure secondary to likely hypoxic respiratory arrest leading to cardiac arrest.This is her second intubation in a week, ? tracheal or sub- glottic stenosis contributing to mucous plug/ hypoxic respiratory arrest. 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 Now, she has progressive worsening of the infiltrates, especially in the upper lobes. This could be related to a component of aspiration pneumonia. 2. The patient with underlying history of COVID-19 viral pneumonia in late November and early December with chronic interstitial infiltrates. She required another hospitalization few weeks ago with respiratory failure, but was successfully extubated. 3. Status post tracheostomy followed by decannulation.. 4. Cannot exclude the possibility of subglottic stenosis contributing to respiratory arrest. 5. Underlying obesity. 6. Abnormal CT chest as discussed above. 7. Bleeding around the endotracheal tube. She had hemoptysis before coming to the hospital. Could be contributed by pneumonia as well as use of Eliquis at home. Page of Plan Plan . RECOMMENDATIONS: 1. We will continue with present assist control mode. She is currently on 50% FiO2. We will gradually wean FiO2, keep saturation 94% and above. 2. Continue empiric antibiotics. 3. Follow up chest x-rays to see any improvement in bilateral infiltrates, especially in the upper lobes. 4. Continue to hold Eliquis. We will ask Cardiology for any cardiac reason for her being on Eliquis. Question history of A. fib. 5. We may need a CT of the neck to rule out any subglottic stenosis. 6. We will do SCDs for DVT prophylaxis and hold off Lovenox until endotracheal bleeding has completely resolved. 7. PPI for stress ulcer prophylaxis. 8. Discussed with RN. Chart reviewed, imaging studies reviewed. Comment Review of Relevant I have reviewed the following items davina (where applicable) has been applied. Medications: Current Medications Medications (Trade) Dose Ordered Sig/Qing Route PRN Reason Start Time Stop Time Status Last Admin Dose Admin Primidone (Mysoline) 50 mg DAILY PO 05/04/21 09:00 05/04/21 07:51 Citalopram Hydrobromide (CeleXA) 20 mg DAILY PO 05/04/21 09:00 05/04/21 07:51 Pantoprazole Sodium (PROTONIX VIAL for IV PUSH) 40 mg DAILYAC IVP 05/04/21 07:30 05/04/21 07:30 Info (Icu Electrolyte Protocol) 1 ea DAILY MC 05/04/21 09:00 05/04/21 07:52 Potassium Chloride/Water 100 ml @ 100 mls/hr Q1H IV 05/03/21 14:00 05/03/21 15:59 DC 05/03/21 15:57 Vancomycin HCl (Vanco Per Pharmacy) 1 each PRN DAILY PRN MC SEE COMMENTS 05/03/21 15:15 05/04/21 11:41 Cefepime HCl (Maxipime) 1 gm Q8HRS IVP 05/03/21 22:00 05/04/21 05:13 Methylprednisolone Sodium Succinate (SOLU-Medrol 125MG VIAL) 125 mg 1X ONCE IV 05/03/21 15:30 05/03/21 15:31 DC 05/03/21 15:56 Vancomycin HCl 1 gm/Sodium Chloride 250 ml @ 250 mls/hr Q12H IV 05/04/21 00:00 05/04/21 11:58 Potassium Chloride/Water 100 ml @ 100 mls/hr Q1H IV 05/04/21 08:00 05/04/21 09:59 DC 05/04/21 09:38 Justifications for Admission Other Justification LUCERO PERAZA III DO May 04, 2021 13:13
--- NOTE | 2021-05-04 17:57 | PDOC2 ---
CONSULT Date of Consult Date of Consult DATE: 05/04/21 TIME: 17:50 Reason for Consult Reason for Consult: Cardiopulmonary arrest, treatment with Eliquis. Referring Physician Referring Physician: Dr. Aguilar Identification/Chief Complaint Chief Complaint Out of hospital cardiopulmonary arrest Source Source: Chart review History of Present Illness Reason for Visit: The patient is a 61-year-old female who was recently hospitalized for pneumonia. She was admitted to the emergency room yesterday after an out of hospital cardiopulmonary arrest. According to records the patient became more short of breath at home and paramedics were called. Once the paramedics arrived the patient lost her pulse and she was coded as per protocols. After arrival in the emergency room she was intubated and following intubation and treatment she resumed a spontaneous rhythm. Initial potassium level was 2.6. EKG after resuscitation showed a sinus tachycardia but no acute ST elevations. Patient has remained intubated overnight. She is being treated and evaluated by pulmonary as well as ID and the primary service. Chest x-ray shows a diffuse infiltrate. The patient was admitted and apparently had been on anticoagulation with Eliquis at home. Of the available records the patient does not appear to have been atrial fibrillation. We are checking further old records regarding a possible indication for Eliquis. Eliquis has been held. The patient remains on the ventilator as noted above. Past Medical History Cardiovascular: CHF, HTN Pulmonary: Pneumonia Renal/: Chronic renal insuff Past Surgical History Past Surgical History: Cholecystectomy, Tubal Ligation Family History Family History: Cancer, Coronary Artery Disease, Diabetes Social History No ALCOHOL: none Drugs: None Current Problem List Problem List Problems Medical Problems: (1) Cardiac arrest Status: Acute (2) Hypokalemia Status: Acute (3) Lactic acidosis Status: Acute (4) Pneumonia Status: Acute (5) Respiratory failure, acute Status: Acute (6) Septic shock Status: Acute Current Medications Current Medications Current Medications Propofol 100 ml @ As Directed STK-MED ONCE IV ; Start 05/03/21 at 10:43; Stop 05/03/21 at 10:43; Status DC Norepinephrine Bitartrate 8 mg/ Dextrose 258 ml @ 19.35 mls/ hr 1X ONCE IV Last administered on 05/03/21at 11:20; Start 05/03/21 at 11:15; Stop 05/04/21 at 00:34; Status DC Propofol (Diprivan) 200 mg TITRATE ONCE IV ; Start 05/03/21 at 11:45; Stop 05/03/21 at 11:46; Status UNV Propofol 100 ml @ 3 mls/hr CONT PRN IV PER PROTOCOL Last administered on 05/03/21at 10:50; Start 05/03/21 at 11:45; Stop 05/03/21 at 12:49; Status DC Cefepime HCl (Maxipime) 2 gm 1X ONCE IVP Last administered on 05/03/21at 11:45; Start 05/03/21 at 11:45; Stop 05/03/21 at 11:46; Status DC Vancomycin HCl 1.5 gm/Sodium Chloride 500 ml @ 250 mls/hr 1X ONCE IV ; Start 05/03/21 at 11:45; Stop 05/03/21 at 13:44; Status UNV Sodium Chloride 1,000 ml @ 1,000 mls/hr 1X ONCE IV Last administered on 05/03/21at 10:50; Start 05/03/21 at 11:45; Stop 05/03/21 at 12:44; Status DC Sodium Chloride 1,000 ml @ 1,000 mls/hr 1X ONCE IV Last administered on 05/03/21at 11:00; Start 05/03/21 at 11:45; Stop 05/03/21 at 12:44; Status DC Sodium Chloride 1,000 ml @ 250 mls/hr Q4H IV Last administered on 05/04/21at 03:45; Start 05/03/21 at 11:45; Stop 05/04/21 at 11:44; Status DC Vancomycin HCl 2 gm/Sodium Chloride 500 ml @ 250 mls/hr 1X ONCE IV Last administered on 05/03/21at 12:00; Start 05/03/21 at 12:00; Stop 05/03/21 at 13:59; Status DC Potassium Bicarbonate (Potassium Effervescent Tablet) 40 meq 1X ONCE NG Last administered on 05/03/21at 15:01; Start 05/03/21 at 12:00; Stop 05/03/21 at 12:01; Status DC Potassium Chloride/Water 100 ml @ 100 mls/hr Q1H IV ; Start 05/03/21 at 12:00; Stop 05/03/21 at 12:04; Status DC Apixaban (Eliquis) 5 mg BID PO ; Start 05/03/21 at 21:00; Stop 05/03/21 at 15:54; Status DC Primidone (Mysoline) 50 mg DAILY PO Last administered on 05/04/21at 07:51; Start 05/04/21 at 09:00 Quetiapine Fumarate (SEROquel) 25 mg BID PO ; Start 05/03/21 at 21:00 Citalopram Hydrobromide (CeleXA) 20 mg DAILY PO Last administered on 05/04/21at 07:51; Start 05/04/21 at 09:00 Pantoprazole Sodium (PROTONIX VIAL for IV PUSH) 40 mg DAILYAC IVP Last administered on 05/04/21at 07:30; Start 05/04/21 at 07:30 Potassium Chloride/Water 100 ml @ 100 mls/hr Q1H IV Last administered on 05/03/21at 13:43; Start 05/03/21 at 12:00; Stop 05/03/21 at 13:59; Status DC Magnesium Sulfate 50 ml @ 25 mls/hr 1X ONCE IV Last administered on 05/03/21at 15:00; Start 05/03/21 at 12:00; Stop 05/03/21 at 13:59; Status DC Ondansetron HCl (Zofran) 4 mg PRN Q6HRS PRN IVP NAUSEA/VOMITING; Start 05/03/21 at 12:00 Calcium Carbonate/ Glycine (Tums) 500 mg PRN Q3HRS PRN PO HEARTBURN / GAS; Start 05/03/21 at 12:00 Info (Icu Electrolyte Protocol) 1 ea DAILY MC Last administered on 05/04/21at 07:52; Start 05/04/21 at 09:00 Sodium Chloride (Normal Saline Flush) 3 ml QSHIFT PRN IV AFTER MEDS AND BLOOD DRAWS; Start 05/03/21 at 12:00 Potassium Chloride/Water 100 ml @ 100 mls/hr Q1H IV Last administered on 05/03/21at 15:57; Start 05/03/21 at 14:00; Stop 05/03/21 at 15:59; Status DC Fentanyl Citrate 30 ml @ 2.5 mls/hr CONT PRN IV SEE PROTOCOL Last administered on 05/04/21at 13:12; Start 05/03/21 at 12:45 Midazolam HCl 100 ml @ 1 mls/hr CONT PRN IV SEE PROTOCOL Last administered on 05/04/21at 09:38; Start 05/03/21 at 12:45 Propofol 100 ml @ 3 mls/hr CONT PRN IV PER PROTOCOL; Start 05/03/21 at 12:45 Vecuronium [place] (Norcuron Bolus) 6 mg PRN 1X PRN IV VENT INDUCTION; Start 05/03/21 at 12:45; Stop 05/04/21 at 12:44; Status DC Dexmedetomidine HCl 400 mcg/ Sodium Chloride 100 ml @ 7,500 mls/hr CONT PRN IV PER PROTOCOL; Start 05/03/21 at 12:45 Iohexol (Omnipaque 350 Mg/ml) 100 ml 1X ONCE IV Last administered on 05/03/21at 12:58; Start 05/03/21 at 13:00; Stop 05/03/21 at 13:01; Status DC Info (CONTRAST GIVEN -- Rx MONITORING) 1 each PRN DAILY PRN MC SEE COMMENTS; Start 05/03/21 at 13:00; Stop 05/05/21 at 12:59 Piperacillin Sod/ Tazobactam Sod (Zosyn Per Pharmacy) 1 each PRN DAILY PRN MC SEE COMMENTS; Start 05/03/21 at 15:15; Stop 05/03/21 at 15:07; Status DC Vancomycin HCl (Vanco Per Pharmacy) 1 each PRN DAILY PRN MC SEE COMMENTS Last administered on 05/04/21at 11:41; Start 05/03/21 at 15:15 Cefepime HCl (Maxipime) 1 gm Q8HRS IVP ; Start 05/03/21 at 15:30; Status Cancel Insulin Human Lispro (HumaLOG) 0-7 UNITS TIDWMEALS SQ ; Start 05/03/21 at 17:00 Dextrose (Dextrose 50%-Water Syringe) 12.5 gm PRN Q15MIN PRN IV SEE COMMENTS; Start 05/03/21 at 15:15 Cefepime HCl (Maxipime) 1 gm Q8HRS IVP Last administered on 05/04/21at 14:00; Start 05/03/21 at 22:00 Methylprednisolone Sodium Succinate (SOLU-Medrol 125MG VIAL) 125 mg 1X ONCE IV Last administered on 05/03/21at 15:56; Start 05/03/21 at 15:30; Stop 05/03/21 at 15:31; Status DC Vancomycin HCl 1 gm/Sodium Chloride 250 ml @ 250 mls/hr Q12H IV Last administered on 05/04/21at 11:58; Start 05/04/21 at 00:00 Vancomycin HCl (Vancomycin Trough Level) 1 each 1X ONCE MC ; Start 05/04/21 at 23:30; Stop 05/04/21 at 23:31 Potassium Chloride/Water 100 ml @ 100 mls/hr Q1H IV Last administered on 05/04/21at 09:38; Start 05/04/21 at 08:00; Stop 05/04/21 at 09:59; Status DC Calcium Chloride (Calcium Chloride) 1,000 mg STK-MED ONCE .ROUTE ; Start 05/03/21 at 11:00; Stop 05/04/21 at 12:23; Status DC Sodium Bicarbonate (Sodium Bicarb Adult 8.4% Syr) 50 meq STK-MED ONCE .ROUTE ; Start 05/03/21 at 11:00; Stop 05/04/21 at 12:23; Status DC Epinephrine HCl (EPINEPHrine SYRINGE) 3 mg STK-MED ONCE .ROUTE ; Start 05/03/21 at 11:00; Stop 05/04/21 at 12:23; Status DC Active Scripts Active Easy Neb Compressor Nebulizer (Nebulizer and Compressor) 1 Each Each Each MC PRN PRN Use with albuterol as needed every 4 hours Albuterol Sulfate Neb Soln (Albuterol Sulfate) 2.5 Mg/3 Ml Vial.neb 1 Vial NEB PRN Q4HRS PRN 30 Days Levofloxacin 750 Mg Tablet 1 Tab PO DAILY 5 Days Reported Seroquel (Quetiapine Fumarate) 25 Mg Tablet 25 Mg PO BID Mysoline (Primidone) 50 Mg Tablet 50 Mg PO DAILY Escitalopram Oxalate 20 Mg Tablet 20 Mg PO DAILY Omeprazole 20 Mg Capsule.dr 20 Mg PO DAILY Eliquis (Apixaban) 5 Mg Tablet 5 Mg PO BID Lasix (Furosemide) 40 Mg Tablet 40 Mg PO DAILY Allergies Allergies: Coded Allergies: Penicillins (Unverified Allergy, Intermediate, EDEMA, 03/26/21) latex (Verified Allergy, Intermediate, 03/26/21) azithromycin (Unverified Adverse Reaction, Intermediate, Anxiety, 04/25/21) ROS Review of System The patient is intubated. Physical Exam General: Other (Intubated and sedated.) Lungs: Other (Decreased breath sounds) Heart: Regular rate Abdomen: Normal bowel sounds Vitals VITALS Vital Signs Date Time Temp Pulse Resp B/P (MAP) Pulse Ox O2 Delivery O2 Flow Rate FiO2 05/04/21 17:00 98.7 65 20 116/54 97 Ventilator 98.7 05/03/21 23:48 15.0 Labs Labs Laboratory Tests Test 05/03/21 10:30 05/03/21 10:40 05/03/21 11:26 05/03/21 15:06 O2 Saturation 96 % (92-99) Arterial Blood pH 7.42 (7.35-7.45) Arterial Blood pCO2 at Patient Temp 47 mmHg (35-46) Arterial Blood pO2 at Patient Temp 83 mmHg (65-108) Arterial Blood HCO3 30 mmol/L (21-28) Arterial Blood Base Excess 4 mmol/L (-3-3) Oxyhemoglobin 95.1 % Methemoglobin 0.3 % (0.0-1.9) Carbon Monoxide, Quantitative 0.3 % (0.0-1.9) FiO2 100 White Blood Count 20.2 x10^3/uL (4.0-11.0) Red Blood Count 3.65 x10^6/uL (3.50-5.40) Hemoglobin 10.4 g/dL (12.0-15.5) Hematocrit 33.2 % (36.0-47.0) Mean Corpuscular Volume 91 fL (79-100) Mean Corpuscular Hemoglobin 28 pg (25-35) Mean Corpuscular Hemoglobin Concent 31 g/dL (31-37) Red Cell Distribution Width 14.3 % (11.5-14.5) Platelet Count 322 x10^3/uL (140-400) Neutrophils (%) (Auto) 34 % (31-73) Lymphocytes (%) (Auto) 57 % (24-48) Monocytes (%) (Auto) 7 % (0-9) Eosinophils (%) (Auto) 2 % (0-3) Basophils (%) (Auto) 1 % (0-3) Neutrophils # (Auto) 6.8 x10^3/uL (1.8-7.7) Lymphocytes # (Auto) 11.6 x10^3/uL (1.0-4.8) Monocytes # (Auto) 1.3 x10^3/uL (0.0-1.1) Eosinophils # (Auto) 0.3 x10^3/uL (0.0-0.7) Basophils # (Auto) 0.2 x10^3/uL (0.0-0.2) Segmented Neutrophils % 36 % (35-66) Band Neutrophils % 4 % (0-9) Lymphocytes % 52 % (24-48) Monocytes % 5 % (0-10) Eosinophils % 1 % (0-5) Metamyelocytes % 2 % (0-0) Smudge Cells Present Platelet Estimate Adequate (ADEQUATE) Anisocytosis Slight Prothrombin Time 13.4 SEC (11.7-14.0) Prothromb Time International Ratio 1.0 (0.8-1.1) Activated Partial Thromboplast Time 34 SEC (24-38) D-Dimer (Eun) 2.06 ug/mlFEU (0.00-0.50) Sodium Level 141 mmol/L (136-145) Potassium Level 2.6 mmol/L (3.5-5.1) Chloride Level 101 mmol/L (98-107) Carbon Dioxide Level 32 mmol/L (21-32) Anion Gap 8 (6-14) Blood Urea Nitrogen 5 mg/dL (7-20) Creatinine 0.8 mg/dL (0.6-1.0) Estimated GFR (Cockcroft-Gault) 72.4 BUN/Creatinine Ratio 6 (6-20) Glucose Level 266 mg/dL (70-99) Lactic Acid Level 6.9 mmol/L (0.4-2.0) 0.8 mmol/L (0.4-2.0) Calcium Level 8.1 mg/dL (8.5-10.1) Total Bilirubin 0.1 mg/dL (0.2-1.0) Aspartate Amino Transf (AST/SGOT) 34 U/L (15-37) Alanine Aminotransferase (ALT/SGPT) 31 U/L (14-59) Alkaline Phosphatase 73 U/L (46-116) Troponin I High Sensitivity 18 ng/L (4-50) 125 ng/L (4-50) FT-Wdb-B-Type Natriuretic Peptide 481 pg/mL (0-124) Total Protein 6.3 g/dL (6.4-8.2) Albumin 2.7 g/dL (3.4-5.0) Albumin/Globulin Ratio 0.8 (1.0-1.7) Lipase 74 U/L (73-393) Influenza Type A Antigen Negative (NEGATIVE) Influenza Type B Antigen Negative (NEGATIVE) SARS-CoV-2 RNA (FELIPA) Negative (Negative) SARS-CoV-2 Antigen (Rapid) Negative (NEGATIVE) Test 05/04/21 05:47 05/04/21 08:00 White Blood Count 8.6 x10^3/uL (4.0-11.0) Red Blood Count 2.97 x10^6/uL (3.50-5.40) Hemoglobin 8.5 g/dL (12.0-15.5) Hematocrit 26.1 % (36.0-47.0) Mean Corpuscular Volume 88 fL (79-100) Mean Corpuscular Hemoglobin 29 pg (25-35) Mean Corpuscular Hemoglobin Concent 33 g/dL (31-37) Red Cell Distribution Width 14.7 % (11.5-14.5) Platelet Count 339 x10^3/uL (140-400) Neutrophils (%) (Auto) 80 % (31-73) Lymphocytes (%) (Auto) 16 % (24-48) Monocytes (%) (Auto) 5 % (0-9) Eosinophils (%) (Auto) 0 % (0-3) Basophils (%) (Auto) 0 % (0-3) Neutrophils # (Auto) 6.9 x10^3/uL (1.8-7.7) Lymphocytes # (Auto) 1.3 x10^3/uL (1.0-4.8) Monocytes # (Auto) 0.4 x10^3/uL (0.0-1.1) Eosinophils # (Auto) 0.0 x10^3/uL (0.0-0.7) Basophils # (Auto) 0.0 x10^3/uL (0.0-0.2) Sodium Level 144 mmol/L (136-145) Potassium Level 3.3 mmol/L (3.5-5.1) Chloride Level 108 mmol/L (98-107) Carbon Dioxide Level 31 mmol/L (21-32) Anion Gap 5 (6-14) Blood Urea Nitrogen 10 mg/dL (7-20) Creatinine 0.7 mg/dL (0.6-1.0) Estimated GFR (Cockcroft-Gault) 84.5 Glucose Level 130 mg/dL (70-99) Calcium Level 7.6 mg/dL (8.5-10.1) Procalcitonin 0.19 ng/mL (0.00-0.10) O2 Saturation 98 % (92-99) Arterial Blood pH 7.47 (7.35-7.45) Arterial Blood pCO2 at Patient Temp 42 mmHg (35-46) Arterial Blood pO2 at Patient Temp 145 mmHg (65-108) Arterial Blood HCO3 29 mmol/L (21-28) Arterial Blood Base Excess 5 mmol/L (-3-3) FiO2 70% vent Laboratory Tests Test 05/04/21 05:47 05/04/21 08:00 White Blood Count 8.6 x10^3/uL (4.0-11.0) Red Blood Count 2.97 x10^6/uL (3.50-5.40) Hemoglobin 8.5 g/dL (12.0-15.5) Hematocrit 26.1 % (36.0-47.0) Mean Corpuscular Volume 88 fL (79-100) Mean Corpuscular Hemoglobin 29 pg (25-35) Mean Corpuscular Hemoglobin Concent 33 g/dL (31-37) Red Cell Distribution Width 14.7 % (11.5-14.5) Platelet Count 339 x10^3/uL (140-400) Neutrophils (%) (Auto) 80 % (31-73) Lymphocytes (%) (Auto) 16 % (24-48) Monocytes (%) (Auto) 5 % (0-9) Eosinophils (%) (Auto) 0 % (0-3) Basophils (%) (Auto) 0 % (0-3) Neutrophils # (Auto) 6.9 x10^3/uL (1.8-7.7) Lymphocytes # (Auto) 1.3 x10^3/uL (1.0-4.8) Monocytes # (Auto) 0.4 x10^3/uL (0.0-1.1) Eosinophils # (Auto) 0.0 x10^3/uL (0.0-0.7) Basophils # (Auto) 0.0 x10^3/uL (0.0-0.2) Sodium Level 144 mmol/L (136-145) Potassium Level 3.3 mmol/L (3.5-5.1) Chloride Level 108 mmol/L (98-107) Carbon Dioxide Level 31 mmol/L (21-32) Anion Gap 5 (6-14) Blood Urea Nitrogen 10 mg/dL (7-20) Creatinine 0.7 mg/dL (0.6-1.0) Estimated GFR (Cockcroft-Gault) 84.5 Glucose Level 130 mg/dL (70-99) Calcium Level 7.6 mg/dL (8.5-10.1) Procalcitonin 0.19 ng/mL (0.00-0.10) O2 Saturation 98 % (92-99) Arterial Blood pH 7.47 (7.35-7.45) Arterial Blood pCO2 at Patient Temp 42 mmHg (35-46) Arterial Blood pO2 at Patient Temp 145 mmHg (65-108) Arterial Blood HCO3 29 mmol/L (21-28) Arterial Blood Base Excess 5 mmol/L (-3-3) FiO2 70% vent Images Images Chest x-ray with diffuse bilateral infiltrates. Assessment/Plan Assessment/Plan 1. Out of hospital acute cardiopulmonary arrest. Recent hospitalization. Patient rested at home once paramedics arrived. She is now sedated on a ventilator. She continues on antibiotics. Her rhythm has been stable. I agree with present treatment. 2. Recent treatment with Eliquis. I can find no history of atrial fibrillation or other indications for chronic anticoagulation. We will check further old records. Agree with holding Eliquis. 3. Septic shock. Continue on antibiotics. Pressors as needed. 4. Hypokalemia. Initial potassium of 2.6. Being replaced and monitored. YUDITH RANGEL MD May 04, 2021 17:57
[2021-05-04] MEDS: PROPOFOL 100 ML IV PRN (21:16)
[2021-05-05] VITALS (23 sets, daily range): BP systolic 81–170; BP diastolic 44–78
[2021-05-05 00:18] LABS: VANC TR 16.2 mcg/mL (10.0-20.0)
[2021-05-05] MEDS: VANCOMYCIN 1 GM in IV NORMAL SALINE 250ML 250 ML IV SCH ×2 (00:50→12:19)
[2021-05-05] MEDS: VANCOMYCIN PER PHARMACY MC PRN (02:07)
--- NOTE | 2021-05-05 02:07 | NUR ---
Pharmacy Vancomycin Dosing Note S:Consulted to monitor and dose vancomycin started 05/03/21. O:TENZIN HENLEY is a 61 year old F with Sepsis Pneumonia . Height: 5 feet, 5 inches Weight: 108.006486 kg [place] Body Weight: 195.00 Adjusted Body Weight: 160.36 Dosing Weight: Actual Other Antibiotics: Cefepime LABS: Last BUN: 10 Last Creatinine: 0.7 Creatinine Clearance: 88 mL/min Last WBC: 8.6 Last Procalcitonin: 0.19 Tmax (past 24 hours): 98.9 Microbiology: Blood cultures pending I/O: 465 Drug Levels: Last Trough level: 16.2 on 05/04/21 at 2330 Last dose given 05/04/21 at 0014 Vancomycin Dosing: Loading Dose: 2000 mg x1 Dosing Weight: Actual Target Trough: 15-20 A: Based on: TROUGH P: 1. Continue Vancomycin 1000 mg IV q12h 2. Follow up Trough level IF NEEDED 3. Pharmacy will continue to monitor, follow and adjust therapy as needed. ESTHER OBANDO RPH, [id number] Signed: 05/05/21 at 020 by ESTHER OBANDO RPH PHA
[2021-05-05] MEDS: PROPOFOL 100 ML IV PRN ×2 (04:18→22:00)
[2021-05-05] MEDS: CEFEPIME HCL IV Push 1 GM VIAL. IVP SCH ×3 (05:01→21:16)
--- NOTE | 2021-05-05 05:37 | RAD ---
XR CHEST 1V History: Reason: RF / Spl. Instructions: / History: Comparison: May 03, 2021 Findings: Stable endotracheal tube, enteric tube and right IJ central line. Severe diffuse pulmonary opacities, decreased compared to prior. No pleural effusion. No pneumothorax. Unchanged heart size. Impression: 1. Severe diffuse pulmonary opacities, decreased compared to prior. Electronically signed by: Lucas Patrick DO (05/05/2021 5:34 AM) [facility]
--- NOTE | 2021-05-05 06:13 | PDOC ---
PULMONARY PROGRESS NOTES DATE: 05/05/21 TIME: 06:11 Subjective on vent 5-50% slight bleeding ett better versed fentanyl prop Vitals Vital Signs Date Time Temp Pulse Resp B/P (MAP) Pulse Ox O2 Delivery O2 Flow Rate FiO2 05/05/21 05:00 95 Ventilator 05/05/21 04:00 98.2 60 20 94/50 98.2 05/04/21 22:04 15.0 Comments ros unable to obtain intubated sedated no distress nc at rrr no accessory muscle use abd obese no rash Lungs: Clear Cardiovascular: S1 Abdomen: Soft Extremities: Other (1+) Labs Laboratory Tests Test 05/03/21 10:30 05/03/21 10:40 05/03/21 11:26 05/03/21 15:06 O2 Saturation 96 % (92-99) Arterial Blood pH 7.42 (7.35-7.45) Arterial Blood pCO2 at Patient Temp 47 mmHg (35-46) Arterial Blood pO2 at Patient Temp 83 mmHg (65-108) Arterial Blood HCO3 30 mmol/L (21-28) Arterial Blood Base Excess 4 mmol/L (-3-3) Oxyhemoglobin 95.1 % Methemoglobin 0.3 % (0.0-1.9) Carbon Monoxide, Quantitative 0.3 % (0.0-1.9) FiO2 100 White Blood Count 20.2 x10^3/uL (4.0-11.0) Red Blood Count 3.65 x10^6/uL (3.50-5.40) Hemoglobin 10.4 g/dL (12.0-15.5) Hematocrit 33.2 % (36.0-47.0) Mean Corpuscular Volume 91 fL (79-100) Mean Corpuscular Hemoglobin 28 pg (25-35) Mean Corpuscular Hemoglobin Concent 31 g/dL (31-37) Red Cell Distribution Width 14.3 % (11.5-14.5) Platelet Count 322 x10^3/uL (140-400) Neutrophils (%) (Auto) 34 % (31-73) Lymphocytes (%) (Auto) 57 % (24-48) Monocytes (%) (Auto) 7 % (0-9) Eosinophils (%) (Auto) 2 % (0-3) Basophils (%) (Auto) 1 % (0-3) Neutrophils # (Auto) 6.8 x10^3/uL (1.8-7.7) Lymphocytes # (Auto) 11.6 x10^3/uL (1.0-4.8) Monocytes # (Auto) 1.3 x10^3/uL (0.0-1.1) Eosinophils # (Auto) 0.3 x10^3/uL (0.0-0.7) Basophils # (Auto) 0.2 x10^3/uL (0.0-0.2) Segmented Neutrophils % 36 % (35-66) Band Neutrophils % 4 % (0-9) Lymphocytes % 52 % (24-48) Monocytes % 5 % (0-10) Eosinophils % 1 % (0-5) Metamyelocytes % 2 % (0-0) Smudge Cells Present Platelet Estimate Adequate (ADEQUATE) Anisocytosis Slight Prothrombin Time 13.4 SEC (11.7-14.0) Prothromb Time International Ratio 1.0 (0.8-1.1) Activated Partial Thromboplast Time 34 SEC (24-38) D-Dimer (Eun) 2.06 ug/mlFEU (0.00-0.50) Sodium Level 141 mmol/L (136-145) Potassium Level 2.6 mmol/L (3.5-5.1) Chloride Level 101 mmol/L (98-107) Carbon Dioxide Level 32 mmol/L (21-32) Anion Gap 8 (6-14) Blood Urea Nitrogen 5 mg/dL (7-20) Creatinine 0.8 mg/dL (0.6-1.0) Estimated GFR (Cockcroft-Gault) 72.4 BUN/Creatinine Ratio 6 (6-20) Glucose Level 266 mg/dL (70-99) Lactic Acid Level 6.9 mmol/L (0.4-2.0) 0.8 mmol/L (0.4-2.0) Calcium Level 8.1 mg/dL (8.5-10.1) Total Bilirubin 0.1 mg/dL (0.2-1.0) Aspartate Amino Transf (AST/SGOT) 34 U/L (15-37) Alanine Aminotransferase (ALT/SGPT) 31 U/L (14-59) Alkaline Phosphatase 73 U/L (46-116) Troponin I High Sensitivity 18 ng/L (4-50) 125 ng/L (4-50) CA-Ddu-I-Type Natriuretic Peptide 481 pg/mL (0-124) Total Protein 6.3 g/dL (6.4-8.2) Albumin 2.7 g/dL (3.4-5.0) Albumin/Globulin Ratio 0.8 (1.0-1.7) Lipase 74 U/L (73-393) Influenza Type A Antigen Negative (NEGATIVE) Influenza Type B Antigen Negative (NEGATIVE) SARS-CoV-2 RNA (FELIPA) Negative (Negative) SARS-CoV-2 Antigen (Rapid) Negative (NEGATIVE) Test 05/04/21 05:47 05/04/21 08:00 05/04/21 23:59 05/05/21 00:00 White Blood Count 8.6 x10^3/uL (4.0-11.0) Red Blood Count 2.97 x10^6/uL (3.50-5.40) Hemoglobin 8.5 g/dL (12.0-15.5) Hematocrit 26.1 % (36.0-47.0) Mean Corpuscular Volume 88 fL (79-100) Mean Corpuscular Hemoglobin 29 pg (25-35) Mean Corpuscular Hemoglobin Concent 33 g/dL (31-37) Red Cell Distribution Width 14.7 % (11.5-14.5) Platelet Count 339 x10^3/uL (140-400) Neutrophils (%) (Auto) 80 % (31-73) Lymphocytes (%) (Auto) 16 % (24-48) Monocytes (%) (Auto) 5 % (0-9) Eosinophils (%) (Auto) 0 % (0-3) Basophils (%) (Auto) 0 % (0-3) Neutrophils # (Auto) 6.9 x10^3/uL (1.8-7.7) Lymphocytes # (Auto) 1.3 x10^3/uL (1.0-4.8) Monocytes # (Auto) 0.4 x10^3/uL (0.0-1.1) Eosinophils # (Auto) 0.0 x10^3/uL (0.0-0.7) Basophils # (Auto) 0.0 x10^3/uL (0.0-0.2) Sodium Level 144 mmol/L (136-145) Potassium Level 3.3 mmol/L (3.5-5.1) Chloride Level 108 mmol/L (98-107) Carbon Dioxide Level 31 mmol/L (21-32) Anion Gap 5 (6-14) Blood Urea Nitrogen 10 mg/dL (7-20) Creatinine 0.7 mg/dL (0.6-1.0) Estimated GFR (Cockcroft-Gault) 84.5 Glucose Level 130 mg/dL (70-99) Calcium Level 7.6 mg/dL (8.5-10.1) Procalcitonin 0.19 ng/mL (0.00-0.10) O2 Saturation 98 % (92-99) Arterial Blood pH 7.47 (7.35-7.45) Arterial Blood pCO2 at Patient Temp 42 mmHg (35-46) Arterial Blood pO2 at Patient Temp 145 mmHg (65-108) Arterial Blood HCO3 29 mmol/L (21-28) Arterial Blood Base Excess 5 mmol/L (-3-3) FiO2 70% vent Vancomycin Level Trough 16.2 mcg/mL (10.0-20.0) Vancomycin Last Dose Date Vancomycin Last Dose Time Glucose (Fingerstick) 87 mg/dL (70-99) Laboratory Tests Test 05/04/21 08:00 05/04/21 23:59 05/05/21 00:00 O2 Saturation 98 % (92-99) Arterial Blood pH 7.47 (7.35-7.45) Arterial Blood pCO2 at Patient Temp 42 mmHg (35-46) Arterial Blood pO2 at Patient Temp 145 mmHg (65-108) Arterial Blood HCO3 29 mmol/L (21-28) Arterial Blood Base Excess 5 mmol/L (-3-3) FiO2 70% vent Vancomycin Level Trough 16.2 mcg/mL (10.0-20.0) Vancomycin Last Dose Date Vancomycin Last Dose Time Glucose (Fingerstick) 87 mg/dL (70-99) Medications Active Scripts Medications Dose Route/Sig Max Daily Dose Days Date Category Dose Instructions Easy Neb Compressor Nebulizer (Nebulizer and Compressor) 1 Each Each Each MC PRN PRN 05/01/21 Rx Use with albuterol as needed every 4 hours Albuterol Sulfate Neb Soln (Albuterol Sulfate) 2.5 Mg/3 Ml Vial.neb 1 Vial NEB PRN Q4HRS PRN 30 05/01/21 Rx Levofloxacin 750 Mg Tablet 1 Tab PO DAILY 5 05/01/21 Rx Seroquel (Quetiapine Fumarate) 25 Mg Tablet 25 Mg PO BID 04/26/21 Reported Mysoline (Primidone) 50 Mg Tablet 50 Mg PO DAILY 04/26/21 Reported Escitalopram Oxalate 20 Mg Tablet 20 Mg PO DAILY 03/26/21 Reported Omeprazole 20 Mg Capsule.dr 20 Mg PO DAILY 03/26/21 Reported Eliquis (Apixaban) 5 Mg Tablet 5 Mg PO BID 03/26/21 Reported Lasix (Furosemide) 40 Mg Tablet 40 Mg PO DAILY 03/26/21 Reported Impression . 1. Acute hypoxic respiratory failure secondary to likely hypoxic respiratory arrest leading to cardiac arrest.This is her second intubation in a week, ? tracheal or sub- glottic stenosis contributing to mucous plug/ hypoxic respiratory arrest. 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 Now, she has progressive worsening of the infiltrates, especially in the upper lobes. This could be related to a component of aspiration pneumonia. 2. The patient with underlying history of COVID-19 viral pneumonia in late November and early December with chronic interstitial infiltrates. She required another hospitalization few weeks ago with respiratory failure, but was successfully extubated. 3. Status post tracheostomy followed by decannulation.. 4. Cannot exclude the possibility of subglottic stenosis contributing to respiratory arrest. 5. Underlying obesity. 6. Abnormal CT chest as discussed above. 7. Bleeding around the endotracheal tube. She had hemoptysis before coming to the hospital. Could be contributed by pneumonia as well as use of Eliquis at home. Page of Plan . 05/05 1. cont vent support setting reviewed, FiO2, keep saturation 94% and above. 2. Continue empiric antibiotics. 3. Follow up chest x-rays reviewed Severe diffuse pulmonary opacities, decreased compared to prior. 4. Continue to hold Eliquis. We will ask Cardiology for any cardiac reason for her being on Eliquis. Question history of A. fib. 5. We may need a CT of the neck to rule out any subglottic stenosis. 6. SCDs for DVT prophylaxis and hold off Lovenox until endotracheal bleeding has completely resolved. 7. PPI for stress ulcer prophylaxis. 8. Discussed with RN. Chart reviewed, imaging studies reviewed. RECOMMENDATIONS: 1. We will continue with present assist control mode. She is currently on 50% FiO2. We will gradually wean FiO2, keep saturation 94% and above. 2. Continue empiric antibiotics. 3. Follow up chest x-rays to see any improvement in bilateral infiltrates, especially in the upper lobes. 4. Continue to hold Eliquis. We will ask Cardiology for any cardiac reason for her being on Eliquis. Question history of A. fib. 5. We may need a CT of the neck to rule out any subglottic stenosis. 6. We will do SCDs for DVT prophylaxis and hold off Lovenox until endotracheal bleeding has completely resolved. 7. PPI for stress ulcer prophylaxis. 8. Discussed with RN. Chart reviewed, imaging studies reviewed. Total critical care time 30 minutes. GERARD FISHER MD May 05, 2021 06:13
[2021-05-05 06:46] LABS: CALCIUM 7.4 mg/dL (8.5-10.1); CREATININE 0.7 mg/dL (0.6-1.0); GFR 84.5
[2021-05-05 06:51] LABS: POTASSIUM 2.9 mmol/L (3.5-5.1)
[2021-05-05] MEDS: INSULIN LISPRO 300 UNITS/3 ML VIAL. SQ SCH ×3 (08:00→17:00)
[2021-05-05] MEDS: PRIMIDONE 50 MG TABLET PO SCH (08:07)
[2021-05-05] MEDS: CITALOPRAM 20 MG TABLET. PO SCH (08:07)
[2021-05-05] MEDS: QUEtiapine 25 MG TABLET. PO SCH ×2 (08:07→19:38)
[2021-05-05] MEDS: PANTOPRAZOLE IV PUSH 40 MG VIAL. IVP SCH (08:07)
[2021-05-05 08:11] LABS: BASE EXCESS ABG 5 mmol/L (-3-3); HCO3 ABG 30 mmol/L (21-28); PCO2 ABG 43 mmHg (35-46); PO2 ABG 68 mmHg (65-108); SAT O2 ABG 93 % (92-99)
[2021-05-05 08:13] LABS: FIO2 ABG 50
[2021-05-05] MEDS: ELECTROLYTE (ICU) PROTOCOL. MC SCH (08:59)
[2021-05-05] MEDS: POTASSIUM CHLORIDE 20MEQ 100 ML IV SCH ×4 (09:01→12:19)
[2021-05-05] MEDS: MIDAZOLAM 100mg/100ml NS BAG 100 ML IV PRN ×2 (10:04→20:09)
--- NOTE | 2021-05-05 12:50 | PDOC ---
PROGRESS NOTES Date of Service DATE: 05/05/21 TIME: 12:47 Subjective Subjective Patient seen and examined The patient remains on a ventilator. Objective Objective Vital Signs Date Time Temp Pulse Resp B/P (MAP) Pulse Ox O2 Delivery O2 Flow Rate FiO2 05/05/21 12:12 99 Ventilator 05/05/21 12:00 98.2 62 20 92/56 98.2 05/05/21 08:50 15.0 Intake and Output 05/05/21 07:00 Intake Total 1604.2 ml Output Total 420 ml Balance 1184.2 ml Intake IV Total 1338.2 ml Tube Feeding 266 ml Output Urine Total 420 ml Physical Exam Abdomen: Normal bowel sounds Heart: Regular rate General: Other (Intubated) Lungs: Other (Decreased breath sounds) Assessment Assessment Problems Medical Problems: (1) Cardiac arrest Status: Acute (2) Hypokalemia Status: Acute (3) Lactic acidosis Status: Acute (4) Pneumonia Status: Acute (5) Respiratory failure, acute Status: Acute (6) Septic shock Status: Acute 1. Out of hospital acute cardiopulmonary arrest. Recent hospitalization. Significant downtime. She remains on a ventilator. She continues on an tibiotics and supportive treatment. Rhythm stable. 2. Recent treatment with Eliquis. I can find no history of atrial fibrillation or other indications for chronic anticoagulation. Agree with holding Eliquis. H&H decreased today to 8.5 and 26.1. We will continue to monitor. 3. Septic shock. Continue on antibiotics. Pressors as needed. 4. Hypokalemia. Initial potassium of 2.6. Replaced but morning level is still at 2.9. Further replacement and monitoring has been ordered. Comment Review of Relevant I have reviewed the following items davina (where applicable) has been applied. Labs Laboratory Tests Test 05/03/21 15:06 05/04/21 05:47 05/04/21 08:00 05/04/21 23:59 Lactic Acid Level 0.8 mmol/L (0.4-2.0) Troponin I High Sensitivity 125 ng/L (4-50) White Blood Count 8.6 x10^3/uL (4.0-11.0) Red Blood Count 2.97 x10^6/uL (3.50-5.40) Hemoglobin 8.5 g/dL (12.0-15.5) Hematocrit 26.1 % (36.0-47.0) Mean Corpuscular Volume 88 fL (79-100) Mean Corpuscular Hemoglobin 29 pg (25-35) Mean Corpuscular Hemoglobin Concent 33 g/dL (31-37) Red Cell Distribution Width 14.7 % (11.5-14.5) Platelet Count 339 x10^3/uL (140-400) Neutrophils (%) (Auto) 80 % (31-73) Lymphocytes (%) (Auto) 16 % (24-48) Monocytes (%) (Auto) 5 % (0-9) Eosinophils (%) (Auto) 0 % (0-3) Basophils (%) (Auto) 0 % (0-3) Neutrophils # (Auto) 6.9 x10^3/uL (1.8-7.7) Lymphocytes # (Auto) 1.3 x10^3/uL (1.0-4.8) Monocytes # (Auto) 0.4 x10^3/uL (0.0-1.1) Eosinophils # (Auto) 0.0 x10^3/uL (0.0-0.7) Basophils # (Auto) 0.0 x10^3/uL (0.0-0.2) Sodium Level 144 mmol/L (136-145) Potassium Level 3.3 mmol/L (3.5-5.1) Chloride Level 108 mmol/L (98-107) Carbon Dioxide Level 31 mmol/L (21-32) Anion Gap 5 (6-14) Blood Urea Nitrogen 10 mg/dL (7-20) Creatinine 0.7 mg/dL (0.6-1.0) Estimated GFR (Cockcroft-Gault) 84.5 Glucose Level 130 mg/dL (70-99) Calcium Level 7.6 mg/dL (8.5-10.1) Procalcitonin 0.19 ng/mL (0.00-0.10) O2 Saturation 98 % (92-99) Arterial Blood pH 7.47 (7.35-7.45) Arterial Blood pCO2 at Patient Temp 42 mmHg (35-46) Arterial Blood pO2 at Patient Temp 145 mmHg (65-108) Arterial Blood HCO3 29 mmol/L (21-28) Arterial Blood Base Excess 5 mmol/L (-3-3) FiO2 70% vent Vancomycin Level Trough 16.2 mcg/mL (10.0-20.0) Vancomycin Last Dose Date Vancomycin Last Dose Time Test 05/05/21 00:00 05/05/21 06:00 05/05/21 08:10 05/05/21 12:21 Glucose (Fingerstick) 87 mg/dL (70-99) 70 mg/dL (70-99) Sodium Level 146 mmol/L (136-145) Potassium Level 2.9 mmol/L (3.5-5.1) Chloride Level 110 mmol/L (98-107) Carbon Dioxide Level 31 mmol/L (21-32) Anion Gap 5 (6-14) Blood Urea Nitrogen 14 mg/dL (7-20) Creatinine 0.7 mg/dL (0.6-1.0) Estimated GFR (Cockcroft-Gault) 84.5 Glucose Level 95 mg/dL (70-99) Calcium Level 7.4 mg/dL (8.5-10.1) O2 Saturation 93 % (92-99) Arterial Blood pH 7.46 (7.35-7.45) Arterial Blood pCO2 at Patient Temp 43 mmHg (35-46) Arterial Blood pO2 at Patient Temp 68 mmHg (65-108) Arterial Blood HCO3 30 mmol/L (21-28) Arterial Blood Base Excess 5 mmol/L (-3-3) FiO2 50 Laboratory Tests Test 05/04/21 23:59 05/05/21 00:00 05/05/21 06:00 05/05/21 08:10 Vancomycin Level Trough 16.2 mcg/mL (10.0-20.0) Vancomycin Last Dose Date Vancomycin Last Dose Time Glucose (Fingerstick) 87 mg/dL (70-99) Sodium Level 146 mmol/L (136-145) Potassium Level 2.9 mmol/L (3.5-5.1) Chloride Level 110 mmol/L (98-107) Carbon Dioxide Level 31 mmol/L (21-32) Anion Gap 5 (6-14) Blood Urea Nitrogen 14 mg/dL (7-20) Creatinine 0.7 mg/dL (0.6-1.0) Estimated GFR (Cockcroft-Gault) 84.5 Glucose Level 95 mg/dL (70-99) Calcium Level 7.4 mg/dL (8.5-10.1) O2 Saturation 93 % (92-99) Arterial Blood pH 7.46 (7.35-7.45) Arterial Blood pCO2 at Patient Temp 43 mmHg (35-46) Arterial Blood pO2 at Patient Temp 68 mmHg (65-108) Arterial Blood HCO3 30 mmol/L (21-28) Arterial Blood Base Excess 5 mmol/L (-3-3) FiO2 50 Test 05/05/21 12:21 Glucose (Fingerstick) 70 mg/dL (70-99) Microbiology 05/03/21 Blood Culture - Preliminary, Resulted NO GROWTH AFTER 2 DAYS Medications Current Medications Propofol 100 ml @ As Directed STK-MED ONCE IV ; Start 05/03/21 at 10:43; Stop 05/03/21 at 10:43; Status DC Norepinephrine Bitartrate 8 mg/ Dextrose 258 ml @ 19.35 mls/ hr 1X ONCE IV Last administered on 05/03/21at 11:20; Start 05/03/21 at 11:15; Stop 05/04/21 at 00:34; Status DC Propofol (Diprivan) 200 mg TITRATE ONCE IV ; Start 05/03/21 at 11:45; Stop 05/03/21 at 11:46; Status UNV Propofol 100 ml @ 3 mls/hr CONT PRN IV PER PROTOCOL Last administered on 05/03/21at 10:50; Start 05/03/21 at 11:45; Stop 05/03/21 at 12:49; Status DC Cefepime HCl (Maxipime) 2 gm 1X ONCE IVP Last administered on 05/03/21at 11:45; Start 05/03/21 at 11:45; Stop 05/03/21 at 11:46; Status DC Vancomycin HCl 1.5 gm/Sodium Chloride 500 ml @ 250 mls/hr 1X ONCE IV ; Start 05/03/21 at 11:45; Stop 05/03/21 at 13:44; Status UNV Sodium Chloride 1,000 ml @ 1,000 mls/hr 1X ONCE IV Last administered on 05/03/21at 10:50; Start 05/03/21 at 11:45; Stop 05/03/21 at 12:44; Status DC Sodium Chloride 1,000 ml @ 1,000 mls/hr 1X ONCE IV Last administered on 05/03/21at 11:00; Start 05/03/21 at 11:45; Stop 05/03/21 at 12:44; Status DC Sodium Chloride 1,000 ml @ 250 mls/hr Q4H IV Last administered on 05/04/21at 03:45; Start 05/03/21 at 11:45; Stop 05/04/21 at 11:44; Status DC Vancomycin HCl 2 gm/Sodium Chloride 500 ml @ 250 mls/hr 1X ONCE IV Last administered on 05/03/21at 12:00; Start 05/03/21 at 12:00; Stop 05/03/21 at 13:59; Status DC Potassium Bicarbonate (Potassium Effervescent Tablet) 40 meq 1X ONCE NG Last administered on 05/03/21at 15:01; Start 05/03/21 at 12:00; Stop 05/03/21 at 12:01; Status DC Potassium Chloride/Water 100 ml @ 100 mls/hr Q1H IV ; Start 05/03/21 at 12:00; Stop 05/03/21 at 12:04; Status DC Apixaban (Eliquis) 5 mg BID PO ; Start 05/03/21 at 21:00; Stop 05/03/21 at 15:54; Status DC Primidone (Mysoline) 50 mg DAILY PO Last administered on 05/05/21at 08:07; Start 05/04/21 at 09:00 Quetiapine Fumarate (SEROquel) 25 mg BID PO ; Start 05/03/21 at 21:00 Citalopram Hydrobromide (CeleXA) 20 mg DAILY PO Last administered on 05/05/21at 08:07; Start 05/04/21 at 09:00 Pantoprazole Sodium (PROTONIX VIAL for IV PUSH) 40 mg DAILYAC IVP Last administered on 05/05/21at 08:07; Start 05/04/21 at 07:30 Potassium Chloride/Water 100 ml @ 100 mls/hr Q1H IV Last administered on 05/03/21at 13:43; Start 05/03/21 at 12:00; Stop 05/03/21 at 13:59; Status DC Magnesium Sulfate 50 ml @ 25 mls/hr 1X ONCE IV Last administered on 05/03/21at 15:00; Start 05/03/21 at 12:00; Stop 05/03/21 at 13:59; Status DC Ondansetron HCl (Zofran) 4 mg PRN Q6HRS PRN IVP NAUSEA/VOMITING; Start 05/03/21 at 12:00 Calcium Carbonate/ Glycine (Tums) 500 mg PRN Q3HRS PRN PO HEARTBURN / GAS; S tart 05/03/21 at 12:00 Info (Icu Electrolyte Protocol) 1 ea DAILY MC Last administered on 05/05/21at 08:59; Start 05/04/21 at 09:00 Sodium Chloride (Normal Saline Flush) 3 ml QSHIFT PRN IV AFTER MEDS AND BLOOD DRAWS; Start 05/03/21 at 12:00 Potassium Chloride/Water 100 ml @ 100 mls/hr Q1H IV Last administered on 05/03/21at 15:57; Start 05/03/21 at 14:00; Stop 05/03/21 at 15:59; Status DC Fentanyl Citrate 30 ml @ 2.5 mls/hr CONT PRN IV SEE PROTOCOL Last administered on 05/05/21at 08:20; Start 05/03/21 at 12:45 Midazolam HCl 100 ml @ 1 mls/hr CONT PRN IV SEE PROTOCOL Last administered on 05/05/21at 10:04; Start 05/03/21 at 12:45 Propofol 100 ml @ 3 mls/hr CONT PRN IV PER PROTOCOL Last administered on 05/05/21at 04:18; Start 05/03/21 at 12:45 Vecuronium [place] (Norcuron Bolus) 6 mg PRN 1X PRN IV VENT INDUCTION; Start 05/03/21 at 12:45; Stop 05/04/21 at 12:44; Status DC Dexmedetomidine HCl 400 mcg/ Sodium Chloride 100 ml @ 7,500 mls/hr CONT PRN IV PER PROTOCOL; Start 05/03/21 at 12:45 Iohexol (Omnipaque 350 Mg/ml) 100 ml 1X ONCE IV Last administered on 05/03/21at 12:58; Start 05/03/21 at 13:00; Stop 05/03/21 at 13:01; Status DC Info (CONTRAST GIVEN -- Rx MONITORING) 1 each PRN DAILY PRN MC SEE COMMENTS; Start 05/03/21 at 13:00; Stop 05/05/21 at 12:59 Piperacillin Sod/ Tazobactam Sod (Zosyn Per Pharmacy) 1 each PRN DAILY PRN MC SEE COMMENTS; Start 05/03/21 at 15:15; Stop 05/03/21 at 15:07; Status DC Vancomycin HCl (Vanco Per Pharmacy) 1 each PRN DAILY PRN MC SEE COMMENTS Last administered on 05/05/21at 02:07; Start 05/03/21 at 15:15 Cefepime HCl (Maxipime) 1 gm Q8HRS IVP ; Start 05/03/21 at 15:30; Status Cancel Insulin Human Lispro (HumaLOG) 0-7 UNITS TIDWMEALS SQ ; Start 05/03/21 at 17:00 Dextrose (Dextrose 50%-Water Syringe) 12.5 gm PRN Q15MIN PRN IV SEE COMMENTS; Start 05/03/21 at 15:15 Cefepime HCl (Maxipime) 1 gm Q8HRS IVP Last administered on 05/05/21at 05:01; Start 05/03/21 at 22:00 Methylprednisolone Sodium Succinate (SOLU-Medrol 125MG VIAL) 125 mg 1X ONCE IV Last administered on 05/03/21at 15:56; Start 05/03/21 at 15:30; Stop 05/03/21 at 15:31; Status DC Vancomycin HCl 1 gm/Sodium Chloride 250 ml @ 250 mls/hr Q12H IV Last administered on 05/05/21at 12:19; Start 05/04/21 at 00:00 Vancomycin HCl (Vancomycin Trough Level) 1 each 1X ONCE MC ; Start 05/04/21 at 23:30; Stop 05/04/21 at 23:31; Status DC Potassium Chloride/Water 100 ml @ 100 mls/hr Q1H IV Last administered on 05/04/21at 09:38; Start 05/04/21 at 08:00; Stop 05/04/21 at 09:59; Status DC Calcium Chloride (Calcium Chloride) 1,000 mg STK-MED ONCE .ROUTE ; Start 05/03/21 at 11:00; Stop 05/04/21 at 12:23; Status DC Sodium Bicarbonate (Sodium Bicarb Adult 8.4% Syr) 50 meq STK-MED ONCE .ROUTE ; Start 05/03/21 at 11:00; Stop 05/04/21 at 12:23; Status DC Epinephrine HCl (EPINEPHrine SYRINGE) 3 mg STK-MED ONCE .ROUTE ; Start 05/03/21 at 11:00; Stop 05/04/21 at 12:23; Status DC Potassium Chloride/Water 100 ml @ 100 mls/hr Q1H IV Last administered on 05/05/21at 12:19; Start 05/05/21 at 09:00; Stop 05/05/21 at 12:59 Active Scripts Active Easy Neb Compressor Nebulizer (Nebulizer and Compressor) 1 Each Each Each MC PRN PRN Use with albuterol as needed every 4 hours Albuterol Sulfate Neb Soln (Albuterol Sulfate) 2.5 Mg/3 Ml Vial.neb 1 Vial NEB PRN Q4HRS PRN 30 Days Levofloxacin 750 Mg Tablet 1 Tab PO DAILY 5 Days Reported Seroquel (Quetiapine Fumarate) 25 Mg Tablet 25 Mg PO BID Mysoline (Primidone) 50 Mg Tablet 50 Mg PO DAILY Escitalopram Oxalate 20 Mg Tablet 20 Mg PO DAILY Omeprazole 20 Mg Capsule.dr 20 Mg PO DAILY Eliquis (Apixaban) 5 Mg Tablet 5 Mg PO BID Lasix (Furosemide) 40 Mg Tablet 40 Mg PO DAILY Vitals/I & O Vital Sign - Last 24 Hours 05/04/21 05/04/21 05/04/21 05/04/21 13:00 13:52 14:00 15:00 Pulse 67 66 91 Resp 20 20 20 20 B/P (MAP) 107/58 112/56 183/85 Pulse Ox 97 97 98 98 O2 Delivery Ventilator Ventilator Ventilator Ventilator 05/04/21 05/04/21 05/04/21 05/04/21 15:38 16:00 17:00 18:00 Temp 98.7 98.7 Pulse 67 65 65 Resp 20 20 20 B/P (MAP) 99/49 116/54 117/59 Pulse Ox 96 98 97 91 O2 Delivery Ventilator Ventilator Ventilator Ventilator 05/04/21 05/04/21 05/04/21 05/04/21 19:00 20:00 20:00 21:00 Temp 98.4 98.4 Pulse 120 112 100 Resp 25 20 30 B/P (MAP) 190/110 149/68 190/87 Pulse Ox 96 98 91 O2 Delivery Ventilator Ventilator Mechanical Ventilator Ventilator 05/04/21 05/04/21 05/04/21 05/04/21 21:12 21:34 22:00 22:04 Pulse 100 Resp 30 B/P (MAP) 92/42 Pulse Ox 96 98 94 98 O2 Delivery Ventilator Ventilator Ventilator O2 Flow Rate 15.0 15.0 05/04/21 05/05/21 05/05/21 05/05/21 23:00 00:01 00:56 01:00 Temp 98.6 98.6 Pulse 66 93 86 Resp 30 20 20 B/P (MAP) 80/40 97/48 158/73 Pulse Ox 95 94 95 94 O2 Delivery Ventilator Ventilator Ventilator Ventilator 05/05/21 05/05/21 05/05/21 05/05/21 02:00 03:00 04:00 05:00 Temp 98.2 98.2 Pulse 72 66 60 76 Resp 20 20 20 20 B/P (MAP) 109/58 90/49 94/50 154/78 Pulse Ox 94 98 98 94 O2 Delivery Ventilator Ventilator Ventilator Ventilator 05/05/21 05/05/21 05/05/21 05/05/21 05:00 06:00 07:00 07:43 Pulse 61 62 Resp 20 20 B/P (MAP) 81/44 90/45 Pulse Ox 95 94 95 96 O2 Delivery Ventilator Ventilator Ventilator Ventilator 05/05/21 05/05/21 05/05/21 05/05/21 08:00 08:00 08:20 08:50 Pulse 74 Resp 20 B/P (MAP) 119/63 Pulse Ox 96 96 96 O2 Delivery Mechanical Ventilator Ventilator O2 Flow Rate 15.0 15.0 05/05/21 05/05/21 05/05/21 05/05/21 09:00 10:00 11:00 12:00 Temp 98.9 98.2 98.9 98.2 Pulse 65 69 64 62 Resp 20 20 20 20 B/P (MAP) 98/62 96/57 111/66 92/56 Pulse Ox 98 98 100 99 O2 Delivery Ventilator Ventilator Ventilator Ventilator 05/05/21 12:12 Pulse Ox 99 O2 Delivery Ventilator Intake and Output 05/04/21 05/04/21 05/05/21 15:00 23:00 07:00 Intake Total 178 ml 1426.2 ml Output Total 110 ml 125 ml 185 ml Balance -110 ml 53 ml 1241.2 ml Justifications for Admission Other Justification YUDITH RANGEL MD May 05, 2021 12:50
--- NOTE | 2021-05-05 13:21 | PDOC ---
[employer] PROGRESS NOTE Date of Service DOS: DATE: 05/05/21 TIME: 13:20 Chief Complaint Chief Complaint Respiratory failure Probable bacterial pneumonia Recent COVID-19 in November of last year Possible tracheal [place] History of tracheostomy with decannulation Chronic anticoagulation with some hemoptysis Septic shock Lactic acidosis Acute hypoxic respiratory failure secondary to likely bacterial pneumonia versus viral pneumonia, septic shock, lactic acidosis History of Present Illness History of Present Illness 05/05/2021 Patient seen and examined in the ICU She remains on the ventilator AC/20/450/50 percent with 5 of PEEP Simon bedside drainage SCDs in place OG at 30 cc an hour Sedated with fentanyl propofol and Versed Chart reviewed Discussed with RN She remains critically ill 05/04/2021 Patient seen and examined in the ICU She is currently on the vent AC/20/450/50 +5 of PEEP Chart reviewed Discussed with RN She is sedated with Versed fentanyl Has IV Levophed hanging Vitals/I&O Vitals/I&O: Vital Signs Date Time Temp Pulse Resp B/P (MAP) Pulse Ox O2 Delivery O2 Flow Rate FiO2 05/05/21 12:12 99 Ventilator 05/05/21 12:00 98.2 62 20 92/56 98.2 05/05/21 08:50 15.0 I & O 05/04/21 05/04/21 05/05/21 15:00 23:00 07:00 Intake Total 178 ml 1426.2 ml Output Total 110 ml 125 ml 185 ml Balance -110 ml 53 ml 1241.2 ml Physical Exam General: Other (Intubated) Heart: Regular rate Lungs: Clear Abdomen: Normal bowel sounds Extremities: No clubbing Skin: No rashes Labs Labs: Laboratory Tests Test 05/04/21 23:59 05/05/21 00:00 05/05/21 06:00 05/05/21 08:10 Vancomycin Level Trough 16.2 mcg/mL (10.0-20.0) Vancomycin Last Dose Date Vancomycin Last Dose Time Glucose (Fingerstick) 87 mg/dL (70-99) Sodium Level 146 mmol/L (136-145) Potassium Level 2.9 mmol/L (3.5-5.1) Chloride Level 110 mmol/L (98-107) Carbon Dioxide Level 31 mmol/L (21-32) Anion Gap 5 (6-14) Blood Urea Nitrogen 14 mg/dL (7-20) Creatinine 0.7 mg/dL (0.6-1.0) Estimated GFR (Cockcroft-Gault) 84.5 Glucose Level 95 mg/dL (70-99) Calcium Level 7.4 mg/dL (8.5-10.1) O2 Saturation 93 % (92-99) Arterial Blood pH 7.46 (7.35-7.45) Arterial Blood pCO2 at Patient Temp 43 mmHg (35-46) Arterial Blood pO2 at Patient Temp 68 mmHg (65-108) Arterial Blood HCO3 30 mmol/L (21-28) Arterial Blood Base Excess 5 mmol/L (-3-3) FiO2 50 Test 05/05/21 12:21 Glucose (Fingerstick) 70 mg/dL (70-99) Assessment and Plan Assessmemt and Plan Problems Medical Problems: (1) Cardiac arrest Status: Acute (2) Hypokalemia Status: Acute (3) Lactic acidosis Status: Acute (4) Pneumonia Status: Acute (5) Respiratory failure, acute Status: Acute (6) Septic shock Status: Acute Respiratory failure Probable bacterial pneumonia Recent COVID-19 in November of last year Possible tracheal [place] History of tracheostomy with decannulation Chronic anticoagulation with some hemoptysis Septic shock Lactic acidosis Acute hypoxic respiratory failure secondary to likely bacterial pneumonia versus viral pneumonia, septic shock, lactic acidosis Plan ICU monitoring Vent weaning IV antibiotics Continue sedation with Versed and fentanyl Maintenance IV Trying to wean off Levophed Supportive [facility] meds if possible Trend labs Appreciate subspecialist input DVT prophylaxis Full code CC time 32 minutes Comment Review of Relevant I have reviewed the following items davina (where applicable) has been applied. Medications: Current Medications Medications (Trade) Dose Ordered Sig/Qing Route PRN Reason Start Time Stop Time Status Last Admin Dose Admin Potassium Chloride/Water 100 ml @ 100 mls/hr Q1H IV 05/05/21 09:00 05/05/21 12:59 DC 05/05/21 12:19 Justifications for Admission Other Justification LUCERO PERAZA III DO May 05, 2021 13:20
[2021-05-06] VITALS (24 sets, daily range): BP systolic 92–183; BP diastolic 48–81
[2021-05-06] MEDS: VANCOMYCIN 1 GM in IV NORMAL SALINE 250ML 250 ML IV SCH ×2 (00:21→12:37)
--- NOTE | 2021-05-06 04:33 | PDOC ---
PULMONARY PROGRESS NOTES DATE: 05/06/21 TIME: 04:32 Subjective on vent 5-50% slight bleeding ett improved versed fentanyl prop Vitals Vital Signs Date Time Temp Pulse Resp B/P (MAP) Pulse Ox O2 Delivery O2 Flow Rate FiO2 05/06/21 03:51 99.0 79 20 140/66 94 Ventilator 99.0 05/05/21 20:40 15.0 Comments ros unable to obtain intubated sedated no distress nc at rrr no accessory muscle use abd obese no rash Cardiovascular: S1, S2 Extremities: Other (1+) Skin: No Rashes Labs Laboratory Tests Test 05/04/21 05:47 05/04/21 08:00 05/04/21 23:59 05/05/21 00:00 White Blood Count 8.6 x10^3/uL (4.0-11.0) Red Blood Count 2.97 x10^6/uL (3.50-5.40) Hemoglobin 8.5 g/dL (12.0-15.5) Hematocrit 26.1 % (36.0-47.0) Mean Corpuscular Volume 88 fL (79-100) Mean Corpuscular Hemoglobin 29 pg (25-35) Mean Corpuscular Hemoglobin Concent 33 g/dL (31-37) Red Cell Distribution Width 14.7 % (11.5-14.5) Platelet Count 339 x10^3/uL (140-400) Neutrophils (%) (Auto) 80 % (31-73) Lymphocytes (%) (Auto) 16 % (24-48) Monocytes (%) (Auto) 5 % (0-9) Eosinophils (%) (Auto) 0 % (0-3) Basophils (%) (Auto) 0 % (0-3) Neutrophils # (Auto) 6.9 x10^3/uL (1.8-7.7) Lymphocytes # (Auto) 1.3 x10^3/uL (1.0-4.8) Monocytes # (Auto) 0.4 x10^3/uL (0.0-1.1) Eosinophils # (Auto) 0.0 x10^3/uL (0.0-0.7) Basophils # (Auto) 0.0 x10^3/uL (0.0-0.2) Sodium Level 144 mmol/L (136-145) Potassium Level 3.3 mmol/L (3.5-5.1) Chloride Level 108 mmol/L (98-107) Carbon Dioxide Level 31 mmol/L (21-32) Anion Gap 5 (6-14) Blood Urea Nitrogen 10 mg/dL (7-20) Creatinine 0.7 mg/dL (0.6-1.0) Estimated GFR (Cockcroft-Gault) 84.5 Glucose Level 130 mg/dL (70-99) Calcium Level 7.6 mg/dL (8.5-10.1) Procalcitonin 0.19 ng/mL (0.00-0.10) O2 Saturation 98 % (92-99) Arterial Blood pH 7.47 (7.35-7.45) Arterial Blood pCO2 at Patient Temp 42 mmHg (35-46) Arterial Blood pO2 at Patient Temp 145 mmHg (65-108) Arterial Blood HCO3 29 mmol/L (21-28) Arterial Blood Base Excess 5 mmol/L (-3-3) FiO2 70% vent Vancomycin Level Trough 16.2 mcg/mL (10.0-20.0) Vancomycin Last Dose Date Vancomycin Last Dose Time Glucose (Fingerstick) 87 mg/dL (70-99) Test 05/05/21 06:00 05/05/21 08:10 05/05/21 12:21 05/05/21 17:28 Sodium Level 146 mmol/L (136-145) Potassium Level 2.9 mmol/L (3.5-5.1) Chloride Level 110 mmol/L (98-107) Carbon Dioxide Level 31 mmol/L (21-32) Anion Gap 5 (6-14) Blood Urea Nitrogen 14 mg/dL (7-20) Creatinine 0.7 mg/dL (0.6-1.0) Estimated GFR (Cockcroft-Gault) 84.5 Glucose Level 95 mg/dL (70-99) Calcium Level 7.4 mg/dL (8.5-10.1) O2 Saturation 93 % (92-99) Arterial Blood pH 7.46 (7.35-7.45) Arterial Blood pCO2 at Patient Temp 43 mmHg (35-46) Arterial Blood pO2 at Patient Temp 68 mmHg (65-108) Arterial Blood HCO3 30 mmol/L (21-28) Arterial Blood Base Excess 5 mmol/L (-3-3) FiO2 50 Glucose (Fingerstick) 70 mg/dL (70-99) 75 mg/dL (70-99) Laboratory Tests Test 05/05/21 06:00 05/05/21 08:10 05/05/21 12:21 05/05/21 17:28 Sodium Level 146 mmol/L (136-145) Potassium Level 2.9 mmol/L (3.5-5.1) Chloride Level 110 mmol/L (98-107) Carbon Dioxide Level 31 mmol/L (21-32) Anion Gap 5 (6-14) Blood Urea Nitrogen 14 mg/dL (7-20) Creatinine 0.7 mg/dL (0.6-1.0) Estimated GFR (Cockcroft-Gault) 84.5 Glucose Level 95 mg/dL (70-99) Calcium Level 7.4 mg/dL (8.5-10.1) O2 Saturation 93 % (92-99) Arterial Blood pH 7.46 (7.35-7.45) Arterial Blood pCO2 at Patient Temp 43 mmHg (35-46) Arterial Blood pO2 at Patient Temp 68 mmHg (65-108) Arterial Blood HCO3 30 mmol/L (21-28) Arterial Blood Base Excess 5 mmol/L (-3-3) FiO2 50 Glucose (Fingerstick) 70 mg/dL (70-99) 75 mg/dL (70-99) Medications Active Scripts Medications Dose Route/Sig Max Daily Dose Days Date Category Dose Instructions Easy Neb Compressor Nebulizer (Nebulizer and Compressor) 1 Each Each Each MC PRN PRN 05/01/21 Rx Use with albuterol as needed every 4 hours Albuterol Sulfate Neb Soln (Albuterol Sulfate) 2.5 Mg/3 Ml Vial.neb 1 Vial NEB PRN Q4HRS PRN 30 05/01/21 Rx Levofloxacin 750 Mg Tablet 1 Tab PO DAILY 5 05/01/21 Rx Seroquel (Quetiapine Fumarate) 25 Mg Tablet 25 Mg PO BID 04/26/21 Reported Mysoline (Primidone) 50 Mg Tablet 50 Mg PO DAILY 04/26/21 Reported Escitalopram Oxalate 20 Mg Tablet 20 Mg PO DAILY 03/26/21 Reported Omeprazole 20 Mg Capsule.dr 20 Mg PO DAILY 03/26/21 Reported Eliquis (Apixaban) 5 Mg Tablet 5 Mg PO BID 03/26/21 Reported Lasix (Furosemide) 40 Mg Tablet 40 Mg PO DAILY 03/26/21 Reported Comments reviewed cxr 05/05 ett ok Severe diffuse pulmonary opacities, decreased compared to prior. Impression . 1. Acute hypoxic respiratory failure secondary to likely hypoxic respiratory arrest leading to cardiac arrest.This is her second intubation in a week, ? tracheal or sub- glottic stenosis contributing to mucous plug/ hypoxic respiratory arrest. 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 Now, she has progressive worsening of the infiltrates, especially in the upper lobes. This could be related to a component of aspiration pneumonia. 2. The patient with underlying history of COVID-19 viral pneumonia in late November and early December with chronic interstitial infiltrates. She required another hospitalization few weeks ago with respiratory failure, but was successfully extubated. 3. Status post tracheostomy followed by decannulation.. 4. Cannot exclude the possibility of subglottic stenosis contributing to respiratory arrest. 5. Underlying obesity. 6. Abnormal CT chest as discussed above. 7. Bleeding around the endotracheal tube. She had hemoptysis before coming to the hospital. Could be contributed by pneumonia as well as use of Eliquis at home. Page of Plan . 05/06 1. cont vent support setting reviewed, FiO2, keep saturation 94% and above. ett bleeding improved minimal bleeding now 2. Continue empiric antibiotics. 3. Follow up chest x-rays reviewed Severe diffuse pulmonary opacities, decreased compared to prior. 4. Continue to hold Eliquis. We will ask Cardiology for any cardiac reason for her being on Eliquis. Question history of A. fib. 5. We may need a CT of the neck to rule out any subglottic stenosis. 6. SCDs for DVT prophylaxis and hold off Lovenox until endotracheal bleeding has completely resolved. 7. PPI for stress ulcer prophylaxis. 8. Discussed with RN. Chart reviewed, imaging studies reviewed. 05/05 1. cont vent support setting reviewed, FiO2, keep saturation 94% and above. 2. Continue empiric antibiotics. 3. Follow up chest x-rays reviewed Severe diffuse pulmonary opacities, decreased compared to prior. 4. Continue to hold Eliquis. We will ask Cardiology for any cardiac reason for her being on Eliquis. Question history of A. fib. 5. We may need a CT of the neck to rule out any subglottic stenosis. 6. SCDs for DVT prophylaxis and hold off Lovenox until endotracheal bleeding has completely resolved. 7. PPI for stress ulcer prophylaxis. 8. Discussed with RN. Chart reviewed, imaging studies reviewed. RECOMMENDATIONS: 1. We will continue with present assist control mode. She is currently on 50% FiO2. We will gradually wean FiO2, keep saturation 94% and above. 2. Continue empiric antibiotics. 3. Follow up chest x-rays to see any improvement in bilateral infiltrates, especially in the upper lobes. 4. Continue to hold Eliquis. We will ask Cardiology for any cardiac reason for her being on Eliquis. Question history of A. fib. 5. We may need a CT of the neck to rule out any subglottic stenosis. 6. We will do SCDs for DVT prophylaxis and hold off Lovenox until endotracheal bleeding has completely resolved. 7. PPI for stress ulcer prophylaxis. 8. Discussed with RN. Chart reviewed, imaging studies reviewed. Total critical care time 30 minutes. GERARD FISHER MD May 06, 2021 04:33
[2021-05-06] MEDS: CEFEPIME HCL IV Push 1 GM VIAL. IVP SCH ×3 (06:01→22:18)
[2021-05-06 06:04] LABS: CALCIUM 7.3 mg/dL (8.5-10.1); CREATININE 0.7 mg/dL (0.6-1.0); GFR 84.5; POTASSIUM 3.4 mmol/L (3.5-5.1)
[2021-05-06 06:31] LABS: BASO % 1 % (0-3); EOS # 0.4 x10^3/uL (0.0-0.7); EOS % 4 % (0-3); HEMATOCRIT 22.8 % (36.0-47.0); HEMOGLOBIN 7.6 g/dL (12.0-15.5); LYMPH # 1.8 x10^3/uL (1.0-4.8); LYMPH % 21 % (24-48); MEAN CORPUSCULAR HEMOGLOBIN 30 pg (25-35); MEAN CORPUSCULAR HGB CONC 33 g/dL (31-37); MEAN CORPUSCULAR VOLUME 89 fL (79-100); MONO # 0.6 x10^3/uL (0.0-1.1); MONO % 7 % (0-9); NEUT # 5.7 x10^3/uL (1.8-7.7); NEUT % 67 % (31-73); PLATELET COUNT 290 x10^3/uL (140-400); RED BLOOD COUNT 2.56 x10^6/uL (3.50-5.40); RED CELL DISTRIBUTION WIDTH 15.1 % (11.5-14.5); WHITE BLOOD COUNT 8.5 x10^3/uL (4.0-11.0)
[2021-05-06] MEDS: INSULIN LISPRO 300 UNITS/3 ML VIAL. SQ SCH ×3 (08:00→17:00)
[2021-05-06 08:27] LABS: BASE EXCESS ABG 2 mmol/L (-3-3); HCO3 ABG 27 mmol/L (21-28); PCO2 ABG 42 mmHg (35-46); PO2 ABG 83 mmHg (65-108); SAT O2 ABG 95 % (92-99)
[2021-05-06 08:30] LABS: FIO2 ABG 50
[2021-05-06] MEDS: QUEtiapine 25 MG TABLET. PO SCH ×2 (09:00→19:48)
[2021-05-06] MEDS: ELECTROLYTE (ICU) PROTOCOL. MC SCH (09:00)
[2021-05-06] MEDS: CITALOPRAM 20 MG TABLET. PO SCH (10:09)
[2021-05-06] MEDS: PANTOPRAZOLE IV PUSH 40 MG VIAL. IVP SCH (10:09)
[2021-05-06] MEDS: PRIMIDONE 50 MG TABLET PO SCH (10:10)
[2021-05-06] MEDS: POTASSIUM CHLORIDE 20MEQ 100 ML IV SCH ×2 (10:10→11:05)
--- NOTE | 2021-05-06 12:07 | PDOC ---
PROGRESS NOTES Date of Service DATE: 05/06/21 TIME: 12:05 Subjective Subjective Patient seen and examined Objective Objective Vital Signs Date Time Temp Pulse Resp B/P (MAP) Pulse Ox O2 Delivery O2 Flow Rate FiO2 05/06/21 11:35 96 Ventilator 05/06/21 11:00 62 20 92/51 05/06/21 08:00 99.5 99.5 05/06/21 07:54 15.0 Intake and Output 05/06/21 07:00 Intake Total 2571.0 ml Output Total 620 ml Balance 1951.0 ml Intake Oral 485 ml IV Total 1275.0 ml Tube Feeding 511 ml Other 300 ml Output Urine Total 620 ml Physical Exam Abdomen: Normal bowel sounds Heart: Regular rate General: Other (Intubated) Lungs: Other (Mildly decreased breath sounds) Assessment Assessment Problems Medical Problems: (1) Cardiac arrest Status: Acute (2) Hypokalemia Status: Acute (3) Lactic acidosis Status: Acute (4) Pneumonia Status: Acute (5) Respiratory failure, acute Status: Acute (6) Septic shock Status: Acute 1. Out of hospital acute cardiopulmonary arrest. Significant downtime. She remains on a ventilator. She continues on antibiotics and supportive treatment. Rhythm stable. 2. Recent treatment with Eliquis. I can find no history of atrial fibrillation or other indications for chronic anticoagulation. Agree with holding Eliquis. H&H mildly further decreased today to 7.6 and 22.8. We will continue to monitor. 3. Septic shock. Continue on antibiotics. Pressors as needed. 4. Hypokalemia. Initial potassium of 2.6. Yesterday reading was 2.9. Has now increased to 3.4. We will continue replacement and monitoring. Comment Review of Relevant I have reviewed the following items davina (where applicable) has been applied. Labs Laboratory Tests Test 05/04/21 23:59 05/05/21 00:00 05/05/21 06:00 05/05/21 08:10 Vancomycin Level Trough 16.2 mcg/mL (10.0-20.0) Vancomycin Last Dose Date Vancomycin Last Dose Time Glucose (Fingerstick) 87 mg/dL (70-99) Sodium Level 146 mmol/L (136-145) Potassium Level 2.9 mmol/L (3.5-5.1) Chloride Level 110 mmol/L (98-107) Carbon Dioxide Level 31 mmol/L (21-32) Anion Gap 5 (6-14) Blood Urea Nitrogen 14 mg/dL (7-20) Creatinine 0.7 mg/dL (0.6-1.0) Estimated GFR (Cockcroft-Gault) 84.5 Glucose Level 95 mg/dL (70-99) Calcium Level 7.4 mg/dL (8.5-10.1) O2 Saturation 93 % (92-99) Arterial Blood pH 7.46 (7.35-7.45) Arterial Blood pCO2 at Patient Temp 43 mmHg (35-46) Arterial Blood pO2 at Patient Temp 68 mmHg (65-108) Arterial Blood HCO3 30 mmol/L (21-28) Arterial Blood Base Excess 5 mmol/L (-3-3) FiO2 50 Test 05/05/21 12:21 05/05/21 17:28 05/06/21 05:00 05/06/21 08:00 Glucose (Fingerstick) 70 mg/dL (70-99) 75 mg/dL (70-99) White Blood Count 8.5 x10^3/uL (4.0-11.0) Red Blood Count 2.56 x10^6/uL (3.50-5.40) Hemoglobin 7.6 g/dL (12.0-15.5) Hematocrit 22.8 % (36.0-47.0) Mean Corpuscular Volume 89 fL (79-100) Mean Corpuscular Hemoglobin 30 pg (25-35) Mean Corpuscular Hemoglobin Concent 33 g/dL (31-37) Red Cell Distribution Width 15.1 % (11.5-14.5) Platelet Count 290 x10^3/uL (140-400) Neutrophils (%) (Auto) 67 % (31-73) Lymphocytes (%) (Auto) 21 % (24-48) Monocytes (%) (Auto) 7 % (0-9) Eosinophils (%) (Auto) 4 % (0-3) Basophils (%) (Auto) 1 % (0-3) Neutrophils # (Auto) 5.7 x10^3/uL (1.8-7.7) Lymphocytes # (Auto) 1.8 x10^3/uL (1.0-4.8) Monocytes # (Auto) 0.6 x10^3/uL (0.0-1.1) Eosinophils # (Auto) 0.4 x10^3/uL (0.0-0.7) Basophils # (Auto) 0.0 x10^3/uL (0.0-0.2) Sodium Level 143 mmol/L (136-145) Potassium Level 3.4 mmol/L (3.5-5.1) Chloride Level 110 mmol/L (98-107) Carbon Dioxide Level 31 mmol/L (21-32) Anion Gap 2 (6-14) Blood Urea Nitrogen 16 mg/dL (7-20) Creatinine 0.7 mg/dL (0.6-1.0) Estimated GFR (Cockcroft-Gault) 84.5 Glucose Level 99 mg/dL (70-99) Calcium Level 7.3 mg/dL (8.5-10.1) Magnesium Level 2.0 mg/dL (1.8-2.4) O2 Saturation 95 % (92-99) Arterial Blood pH 7.43 (7.35-7.45) Arterial Blood pCO2 at Patient Temp 42 mmHg (35-46) Arterial Blood pO2 at Patient Temp 83 mmHg (65-108) Arterial Blood HCO3 27 mmol/L (21-28) Arterial Blood Base Excess 2 mmol/L (-3-3) FiO2 50 Laboratory Tests Test 05/05/21 12:21 05/05/21 17:28 05/06/21 05:00 05/06/21 08:00 Glucose (Fingerstick) 70 mg/dL (70-99) 75 mg/dL (70-99) White Blood Count 8.5 x10^3/uL (4.0-11.0) Red Blood Count 2.56 x10^6/uL (3.50-5.40) Hemoglobin 7.6 g/dL (12.0-15.5) Hematocrit 22.8 % (36.0-47.0) Mean Corpuscular Volume 89 fL (79-100) Mean Corpuscular Hemoglobin 30 pg (25-35) Mean Corpuscular Hemoglobin Concent 33 g/dL (31-37) Red Cell Distribution Width 15.1 % (11.5-14.5) Platelet Count 290 x10^3/uL (140-400) Neutrophils (%) (Auto) 67 % (31-73) Lymphocytes (%) (Auto) 21 % (24-48) Monocytes (%) (Auto) 7 % (0-9) Eosinophils (%) (Auto) 4 % (0-3) Basophils (%) (Auto) 1 % (0-3) Neutrophils # (Auto) 5.7 x10^3/uL (1.8-7.7) Lymphocytes # (Auto) 1.8 x10^3/uL (1.0-4.8) Monocytes # (Auto) 0.6 x10^3/uL (0.0-1.1) Eosinophils # (Auto) 0.4 x10^3/uL (0.0-0.7) Basophils # (Auto) 0.0 x10^3/uL (0.0-0.2) Sodium Level 143 mmol/L (136-145) Potassium Level 3.4 mmol/L (3.5-5.1) Chloride Level 110 mmol/L (98-107) Carbon Dioxide Level 31 mmol/L (21-32) Anion Gap 2 (6-14) Blood Urea Nitrogen 16 mg/dL (7-20) Creatinine 0.7 mg/dL (0.6-1.0) Estimated GFR (Cockcroft-Gault) 84.5 Glucose Level 99 mg/dL (70-99) Calcium Level 7.3 mg/dL (8.5-10.1) Magnesium Level 2.0 mg/dL (1.8-2.4) O2 Saturation 95 % (92-99) Arterial Blood pH 7.43 (7.35-7.45) Arterial Blood pCO2 at Patient Temp 42 mmHg (35-46) Arterial Blood pO2 at Patient Temp 83 mmHg (65-108) Arterial Blood HCO3 27 mmol/L (21-28) Arterial Blood Base Excess 2 mmol/L (-3-3) FiO2 50 Microbiology 05/03/21 Blood Culture - Preliminary, Resulted NO GROWTH AFTER 3 DAYS Medications Current Medications Propofol 100 ml @ As Directed STK-MED ONCE IV ; Start 05/03/21 at 10:43; Stop 05/03/21 at 10:43; Status DC Norepinephrine Bitartrate 8 mg/ Dextrose 258 ml @ 19.35 mls/ hr 1X ONCE IV [facility] administered on 05/03/21at 11:20; Start 05/03/21 at 11:15; Stop 05/04/21 at 00:34; Status DC Propofol (Diprivan) 200 mg TITRATE ONCE IV ; Start 05/03/21 at 11:45; Stop 05/03/21 at 11:46; Status UNV Propofol 100 ml @ 3 mls/hr CONT PRN IV PER PROTOCOL Last administered on 05/03/21at 10:50; Start 05/03/21 at 11:45; Stop 05/03/21 at 12:49; Status DC Cefepime HCl (Maxipime) 2 gm 1X ONCE IVP Last administered on 05/03/21at 11:45; Start 05/03/21 at 11:45; Stop 05/03/21 at 11:46; Status DC Vancomycin HCl 1.5 gm/Sodium Chloride 500 ml @ 250 mls/hr 1X ONCE IV ; Start 05/03/21 at 11:45; Stop 05/03/21 at 13:44; Status UNV Sodium Chloride 1,000 ml @ 1,000 mls/hr 1X ONCE IV Last administered on 05/03/21at 10:50; Start 05/03/21 at 11:45; Stop 05/03/21 at 12:44; Status DC Sodium Chloride 1,000 ml @ 1,000 mls/hr 1X ONCE IV Last administered on 05/03/21at 11:00; Start 05/03/21 at 11:45; Stop 05/03/21 at 12:44; Status DC Sodium Chloride 1,000 ml @ 250 mls/hr Q4H IV Last administered on 05/04/21at 03:45; Start 05/03/21 at 11:45; Stop 05/04/21 at 11:44; Status DC Vancomycin HCl 2 gm/Sodium Chloride 500 ml @ 250 mls/hr 1X ONCE IV Last administered on 05/03/21at 12:00; Start 05/03/21 at 12:00; Stop 05/03/21 at 13:59; Status DC Potassium Bicarbonate (Potassium Effervescent Tablet) 40 meq 1X ONCE NG Last administered on 05/03/21at 15:01; Start 05/03/21 at 12:00; Stop 05/03/21 at 12:01; Status DC Potassium Chloride/Water 100 ml @ 100 mls/hr Q1H IV ; Start 05/03/21 at 12:00; Stop 05/03/21 at 12:04; Status DC Apixaban (Eliquis) 5 mg BID PO ; Start 05/03/21 at 21:00; Stop 05/03/21 at 15:54; Status DC Primidone (Mysoline) 50 mg DAILY PO Last administered on 05/06/21at 10:10; Start 05/04/21 at 09:00 Quetiapine Fumarate (SEROquel) 25 mg BID PO ; Start 05/03/21 at 21:00 Citalopram Hydrobromide (CeleXA) 20 mg DAILY PO Last administered on 05/06/21at 10:09; Start 05/04/21 at 09:00 Pantoprazole Sodium (PROTONIX VIAL for IV PUSH) 40 mg DAILYAC IVP Last administered on 05/06/21at 10:09; Start 05/04/21 at 07:30 Potassium Chloride/Water 100 ml @ 100 mls/hr Q1H IV Last administered on 05/03/21at 13:43; Start 05/03/21 at 12:00; Stop 05/03/21 at 13:59; Status DC Magnesium Sulfate 50 ml @ 25 mls/hr 1X ONCE IV Last administered on 05/03/21at 15:00; Start 05/03/21 at 12:00; Stop 05/03/21 at 13:59; Status DC Ondansetron HCl (Zofran) 4 mg PRN Q6HRS PRN IVP NAUSEA/VOMITING; Start 05/03/21 at 12:00 Calcium Carbonate/ Glycine (Tums) 500 mg PRN Q3HRS PRN PO HEARTBURN / GAS; Start 05/03/21 at 12:00 Info (Icu Electrolyte Protocol) 1 ea DAILY MC Last administered on 05/06/21at 09:00; Start 05/04/21 at 09:00 Sodium Chloride (Normal Saline Flush) 3 ml QSHIFT PRN IV AFTER MEDS AND BLOOD DRAWS; Start 05/03/21 at 12:00 Potassium Chloride/Water 100 ml @ 100 mls/hr Q1H IV Last administered on 05/03/21at 15:57; Start 05/03/21 at 14:00; Stop 05/03/21 at 15:59; Status DC Fentanyl Citrate 30 ml @ 2.5 mls/hr CONT PRN IV SEE PROTOCOL Last administered on 05/06/21at 07:24; Start 05/03/21 at 12:45 Midazolam HCl 100 ml @ 1 mls/hr CONT PRN IV SEE PROTOCOL Last administered on 05/05/21at 20:09; Start 05/03/21 at 12:45 Propofol 100 ml @ 3 mls/hr CONT PRN IV PER PROTOCOL Last administered on 05/05/21at 22:00; Start 05/03/21 at 12:45 Vecuronium [place] (Norcuron Bolus) 6 mg PRN 1X PRN IV VENT INDUCTION; Start 05/03/21 at 12:45; Stop 05/04/21 at 12:44; Status DC Dexmedetomidine HCl 400 mcg/ Sodium Chloride 100 ml @ 7,500 mls/hr CONT PRN IV PER PROTOCOL; Start 05/03/21 at 12:45 Iohexol (Omnipaque 350 Mg/ml) 100 ml 1X ONCE IV Last administered on 05/03/21at 12:58; Start 05/03/21 at 13:00; Stop 05/03/21 at 13:01; Status DC Info (CONTRAST GIVEN -- Rx MONITORING) 1 each PRN DAILY PRN MC SEE COMMENTS; Start 05/03/21 at 13:00; Stop 05/05/21 at 12:59; Status DC Piperacillin Sod/ Tazobactam Sod (Zosyn Per Pharmacy) 1 each PRN DAILY PRN MC SEE COMMENTS; Start 05/03/21 at 15:15; Stop 05/03/21 at 15:07; Status DC Vancomycin HCl (Vanco Per Pharmacy) 1 each PRN DAILY PRN MC SEE COMMENTS Last administered on 05/05/21at 02:07; Start 05/03/21 at 15:15 Cefepime HCl (Maxipime) 1 gm Q8HRS IVP ; Start 05/03/21 at 15:30; Status Cancel Insulin Human Lispro (HumaLOG) 0-7 UNITS TIDWMEALS SQ ; Start 05/03/21 at 17:00 Dextrose (Dextrose 50%-Water Syringe) 12.5 gm PRN Q15MIN PRN IV SEE COMMENTS; Start 05/03/21 at 15:15 Cefepime HCl (Maxipime) 1 gm Q8HRS IVP Last administered on 05/06/21at 06:01; Start 05/03/21 at 22:00 Methylprednisolone Sodium Succinate (SOLU-Medrol 125MG VIAL) 125 mg 1X ONCE IV Last administered on 05/03/21at 15:56; Start 05/03/21 at 15:30; Stop 05/03/21 at 15:31; Status DC Vancomycin HCl 1 gm/Sodium Chloride 250 ml @ 250 mls/hr Q12H IV Last administered on 05/06/21at 00:21; Start 05/04/21 at 00:00 Vancomycin HCl (Vancomycin Trough Level) 1 each 1X ONCE MC ; Start 05/04/21 at 23:30; Stop 05/04/21 at 23:31; Status DC Potassium Chloride/Water 100 ml @ 100 mls/hr Q1H IV Last administered on 05/04/21at 09:38; Start 05/04/21 at 08:00; Stop 05/04/21 at 09:59; Status DC Calcium Chloride (Calcium Chloride) 1,000 mg STK-MED ONCE .ROUTE ; Start 05/03/21 at 11:00; Stop 05/04/21 at 12:23; Status DC Sodium Bicarbonate (Sodium Bicarb Adult 8.4% Syr) 50 meq STK-MED ONCE .ROUTE ; Start 05/03/21 at 11:00; Stop 05/04/21 at 12:23; Status DC Epinephrine HCl (EPINEPHrine SYRINGE) 3 mg STK-MED ONCE .ROUTE ; Start 05/03/21 at 11:00; Stop 05/04/21 at 12:23; Status DC Potassium Chloride/Water 100 ml @ 100 mls/hr Q1H IV Last administered on 05/05/21at 12:19; Start 05/05/21 at 09:00; Stop 05/05/21 at 12:59; Status DC Potassium Chloride/Water 100 ml @ 100 mls/hr Q1H IV Last administered on 05/06/21at 11:05; Start 05/06/21 at 10:00; Stop 05/06/21 at 11:59; Status DC Active Scripts Active Easy Neb Compressor Nebulizer (Nebulizer and Compressor) 1 Each Each Each PRN PRN Use with albuterol as needed every 4 hours Albuterol Sulfate Neb Soln (Albuterol Sulfate) 2.5 Mg/3 Ml Vial.neb 1 Vial NEB PRN Q4HRS PRN 30 Days Levofloxacin 750 Mg Tablet 1 Tab PO DAILY 5 Days Reported Seroquel (Quetiapine Fumarate) 25 Mg Tablet 25 Mg PO BID Mysoline (Primidone) 50 Mg Tablet 50 Mg PO DAILY Escitalopram Oxalate 20 Mg Tablet 20 Mg PO DAILY Omeprazole 20 Mg Capsule.dr 20 Mg PO DAILY Eliquis (Apixaban) 5 Mg Tablet 5 Mg PO BID Lasix (Furosemide) 40 Mg Tablet 40 Mg PO DAILY Vitals/I & O Vital Sign - Last 24 Hours 05/05/21 05/05/21 05/05/21 05/05/21 12:12 13:00 14:00 15:00 Pulse 65 58 65 Resp 20 20 20 B/P (MAP) 94/50 86/50 91/57 Pulse Ox 99 99 98 98 O2 Delivery Ventilator Ventilator Ventilator Ventilator 05/05/21 05/05/21 05/05/21 05/05/21 16:00 16:29 17:00 17:40 Temp 98.9 98.9 Pulse 76 68 Resp 20 20 B/P (MAP) 109/55 110/58 Pulse Ox 100 95 93 95 O2 Delivery Ventilator Ventilator Ventilator Ventilator 05/05/21 05/05/21 05/05/21 05/05/21 18:00 19:00 20:00 20:00 Temp 99.0 99.0 Pulse 65 76 77 Resp 20 20 20 B/P (MAP) 82/44 91/45 112/54 Pulse Ox 94 94 100 O2 Delivery Ventilator Ventilator Mechanical Ventilator Ventilator 05/05/21 05/05/21 05/05/21 05/05/21 20:00 20:10 20:40 21:00 Pulse 71 Resp 20 B/P (MAP) 170/74 Pulse Ox 93 94 94 91 O2 Delivery Ventilator Ventilator O2 Flow Rate 15.0 15.0 05/05/21 05/05/21 05/06/21 05/06/21 22:00 22:52 00:00 01:00 Temp 99.1 99.1 Pulse 64 64 65 Resp 20 20 20 B/P (MAP) 91/52 96/54 93/48 Pulse Ox 94 94 100 95 O2 Delivery Ventilator Ventilator Ventilator Ventilator 05/06/21 05/06/21 05/06/21 05/06/21 02:00 02:00 03:00 03:51 Temp 99.0 99.0 Pulse 64 101 79 Resp 20 20 20 B/P (MAP) 93/48 183/80 140/66 Pulse Ox 95 95 95 94 O2 Delivery Ventilator Ventilator Ventilator Ventilator 05/06/21 05/06/21 05/06/21 05/06/21 05:00 05:00 06:00 07:00 Pulse 71 77 65 Resp 20 20 20 B/P (MAP) 100/52 160/81 98/48 Pulse Ox 94 95 94 95 O2 Delivery Ventilator Ventilator Ventilator Ventilator 05/06/21 05/06/21 05/06/21 05/06/21 07:24 07:45 07:54 08:00 Pulse Ox 94 95 96 O2 Delivery Ventilator Mechanical Ventilator O2 Flow Rate 15.0 15.0 05/06/21 05/06/21 05/06/21 05/06/21 08:00 09:00 10:00 11:00 Temp 99.5 99.5 Pulse 68 67 62 62 Resp 20 20 20 20 B/P (MAP) 114/54 106/51 99/51 92/51 Pulse Ox 96 95 96 96 O2 Delivery Ventilator Ventilator Ventilator Ventilator 05/06/21 11:35 Pulse Ox 96 O2 Delivery Ventilator Intake and Output 05/05/21 05/05/21 05/06/21 15:00 23:00 07:00 Intake Total 140 ml 1320 ml 1111.0 ml Output Total 145 ml 200 ml 275 ml Balance -5 ml 1120 ml 836.0 ml Justifications for Admission Other Justification YUDITH RANGEL MD May 06, 2021 12:07
[2021-05-06] MEDS: MIDAZOLAM 100mg/100ml NS BAG 100 ML IV PRN (13:18)
--- NOTE | 2021-05-06 13:54 | PDOC ---
[facility] PROGRESS NOTE Date of Service DOS: DATE: 05/06/21 TIME: 13:52 Chief Complaint Chief Complaint Respiratory failure Probable bacterial pneumonia Recent COVID-19 in November of last year Possible tracheal [place] History of tracheostomy with decannulation Chronic anticoagulation with some hemoptysis Septic shock Lactic acidosis Acute hypoxic respiratory failure secondary to likely bacterial pneumonia versus viral pneumonia, septic shock, lactic acidosis History of Present Illness History of Present Illness 05/06/2021 Patient seen and examined in the ICU She remains on the ventilator AC/20/450/50 percent with 5 of PEEP OG at 40 cc an hour Sedated with fentanyl and propofol and Versed Has Simon to bedside drainage SCDs are in place Chart reviewed Discussed with RN She remains critically ill 05/05/2021 Patient seen and examined in the ICU She remains on the ventilator AC/20/450/50 percent with 5 of PEEP Simon bedside drainage SCDs in place OG at 30 cc an hour Sedated with fentanyl propofol and Versed Chart reviewed Discussed with RN She remains critically ill 05/04/2021 Patient seen and examined in the ICU She is currently on the vent AC/20/450/50 +5 of PEEP Chart reviewed Discussed with RN She is sedated with Versed fentanyl Has IV Levophed hanging Vitals/I&O Vitals/I&O: Vital Signs Date Time Temp Pulse Resp B/P (MAP) Pulse Ox O2 Delivery O2 Flow Rate FiO2 05/06/21 13:23 96 Ventilator 05/06/21 13:00 64 20 113/60 05/06/21 12:00 98.9 98.9 05/06/21 07:54 15.0 I & O 05/05/21 05/05/21 05/06/21 15:00 23:00 07:00 Intake Total 140 ml 1320 ml 1111.0 ml Output Total 145 ml 200 ml 275 ml Balance -5 ml 1120 ml 836.0 ml Physical Exam General: Other (Intubated) Heart: Regular rate Abdomen: Normal bowel sounds Extremities: No clubbing Skin: No rashes Labs Labs: Laboratory Tests Test 05/05/21 17:28 05/06/21 05:00 05/06/21 08:00 05/06/21 12:35 Glucose (Fingerstick) 75 mg/dL (70-99) 73 mg/dL (70-99) White Blood Count 8.5 x10^3/uL (4.0-11.0) Red Blood Count 2.56 x10^6/uL (3.50-5.40) Hemoglobin 7.6 g/dL (12.0-15.5) Hematocrit 22.8 % (36.0-47.0) Mean Corpuscular Volume 89 fL (79-100) Mean Corpuscular Hemoglobin 30 pg (25-35) Mean Corpuscular Hemoglobin Concent 33 g/dL (31-37) Red Cell Distribution Width 15.1 % (11.5-14.5) Platelet Count 290 x10^3/uL (140-400) Neutrophils (%) (Auto) 67 % (31-73) Lymphocytes (%) (Auto) 21 % (24-48) Monocytes (%) (Auto) 7 % (0-9) Eosinophils (%) (Auto) 4 % (0-3) Basophils (%) (Auto) 1 % (0-3) Neutrophils # (Auto) 5.7 x10^3/uL (1.8-7.7) Lymphocytes # (Auto) 1.8 x10^3/uL (1.0-4.8) Monocytes # (Auto) 0.6 x10^3/uL (0.0-1.1) Eosinophils # (Auto) 0.4 x10^3/uL (0.0-0.7) Basophils # (Auto) 0.0 x10^3/uL (0.0-0.2) Sodium Level 143 mmol/L (136-145) Potassium Level 3.4 mmol/L (3.5-5.1) Chloride Level 110 mmol/L (98-107) Carbon Dioxide Level 31 mmol/L (21-32) Anion Gap 2 (6-14) Blood Urea Nitrogen 16 mg/dL (7-20) Creatinine 0.7 mg/dL (0.6-1.0) Estimated GFR (Cockcroft-Gault) 84.5 Glucose Level 99 mg/dL (70-99) Calcium Level 7.3 mg/dL (8.5-10.1) Magnesium Level 2.0 mg/dL (1.8-2.4) O2 Saturation 95 % (92-99) Arterial Blood pH 7.43 (7.35-7.45) Arterial Blood pCO2 at Patient Temp 42 mmHg (35-46) Arterial Blood pO2 at Patient Temp 83 mmHg (65-108) Arterial Blood HCO3 27 mmol/L (21-28) Arterial Blood Base Excess 2 mmol/L (-3-3) FiO2 50 Assessment and Plan Assessmemt and Plan Problems Medical Problems: (1) Cardiac arrest Status: Acute (2) Hypokalemia Status: Acute (3) Lactic acidosis Status: Acute (4) Pneumonia Status: Acute (5) Respiratory failure, acute Status: Acute (6) Septic shock Status: Acute Respiratory failure Probable bacterial pneumonia Recent COVID-19 in November of last year Possible tracheal [place] History of tracheostomy with decannulation Chronic anticoagulation with some hemoptysis Septic shock Lactic acidosis Acute hypoxic respiratory failure secondary to likely bacterial pneumonia versus viral pneumonia, septic shock, lactic acidosis Plan ICU monitoring Vent weaning IV antibiotics Continue sedation with Versed and fentanyl Maintenance IV Trying to wean off Levophed Supportive [facility] meds if possible Trend labs Appreciate subspecialist input DVT prophylaxis Full code Prognosis very guarded CC time 33 minutes Comment Review of Relevant I have reviewed the following items davina (where applicable) has been applied. Medications: Current Medications Medications (Trade) Dose Ordered Sig/Qing Route PRN Reason Start Time Stop Time Status Last Admin Dose Admin Potassium Chloride/Water 100 ml @ 100 mls/hr Q1H IV 05/06/21 10:00 05/06/21 11:59 DC 05/06/21 11:05 Justifications for Admission Other Justification LUCERO PERAZA III DO May 06, 2021 13:54
[2021-05-06] MEDS: PROPOFOL 100 ML IV PRN (22:19)
[2021-05-07] VITALS (17 sets, daily range): BP systolic 89–179; BP diastolic 46–99
[2021-05-07] MEDS: CEFEPIME HCL IV Push 1 GM VIAL. IVP SCH ×3 (05:06→21:32)
[2021-05-07] MEDS: MIDAZOLAM 100mg/100ml NS BAG 100 ML IV PRN ×2 (06:34→21:32)
[2021-05-07 06:42] LABS: BASO # 0.1 x10^3/uL (0.0-0.2); BASO % 1 % (0-3); EOS # 0.4 x10^3/uL (0.0-0.7); EOS % 4 % (0-3); HEMOGLOBIN 8.6 g/dL (12.0-15.5); LYMPH # 2.3 x10^3/uL (1.0-4.8); LYMPH % 21 % (24-48); MEAN CORPUSCULAR HEMOGLOBIN 29 pg (25-35); MEAN CORPUSCULAR HGB CONC 33 g/dL (31-37); MEAN CORPUSCULAR VOLUME 88 fL (79-100); MONO # 0.6 x10^3/uL (0.0-1.1); MONO % 5 % (0-9); NEUT # 7.7 x10^3/uL (1.8-7.7); NEUT % 70 % (31-73); PLATELET COUNT 320 x10^3/uL (140-400); RED BLOOD COUNT 2.96 x10^6/uL (3.50-5.40); RED CELL DISTRIBUTION WIDTH 15.1 % (11.5-14.5); WHITE BLOOD COUNT 11.1 x10^3/uL (4.0-11.0)
[2021-05-07 06:53] LABS: CALCIUM 7.7 mg/dL (8.5-10.1); CREATININE 0.6 mg/dL (0.6-1.0); POTASSIUM 3.7 mmol/L (3.5-5.1)
[2021-05-07] MEDS: INSULIN LISPRO 300 UNITS/3 ML VIAL. SQ SCH ×3 (07:49→17:41)
[2021-05-07] MEDS ORDERED: DEXTROSE 50% 25 GM / 50ML DISP.SYRIN. IV PRN (08:00)
--- NOTE | 2021-05-07 08:04 | RAD ---
EXAMINATION: Chest radiograph. VIEWS: 1 COMPARISON: 05/05/2021 INDICATION:61 years, Female, respiratory failure. FINDINGS: Normal cardiomediastinal silhouette. Similar diffuse bilateral pulmonary infiltrates. Similar small l eft pleural effusion. No pneumothorax. No acute osseous process. Unchanged right IJ central venous ca theter position. Enteric tube tip is off image, presumably in the stomach. IMPRESSION: No significant interval change. Electronically signed by: Tripp Griffith MD (05/07/2021 8:01 AM) [facility]
[2021-05-07 08:14] LABS: BASE EXCESS ABG 1 mmol/L (-3-3); HCO3 ABG 25 mmol/L (21-28); PCO2 ABG 39 mmHg (35-46); PO2 ABG 81 mmHg (65-108); SAT O2 ABG 95 % (92-99)
[2021-05-07 08:18] LABS: FIO2 ABG 45% AC 20 450 5
[2021-05-07] MEDS: ELECTROLYTE (ICU) PROTOCOL. MC SCH (09:00)
[2021-05-07] MEDS: QUEtiapine 25 MG TABLET. PO SCH ×2 (09:47→21:00)
[2021-05-07] MEDS: PANTOPRAZOLE IV PUSH 40 MG VIAL. IVP SCH (09:47)
[2021-05-07] MEDS: PRIMIDONE 50 MG TABLET PO SCH (09:48)
[2021-05-07] MEDS: CITALOPRAM 20 MG TABLET. PO SCH (09:48)
--- NOTE | 2021-05-07 10:20 | PDOC ---
PULMONARY PROGRESS NOTES DATE: 05/07/21 TIME: 10:17 Subjective Remains on assist control mode. Down to 45% FiO2. Sedated Vitals Vital Signs Date Time Temp Pulse Resp B/P (MAP) Pulse Ox O2 Delivery O2 Flow Rate FiO2 05/07/21 09:47 Ventilator 05/07/21 08:02 96 05/07/21 07:04 20 05/07/21 06:34 15.0 05/07/21 05:48 67 114/61 05/07/21 04:00 99.1 99.1 Comments ros unable to obtain intubated sedated no distress nc at rrr no accessory muscle use abd obese no rash Lungs: Other (Decreased breath sounds) Cardiovascular: S1, S2 Extremities: Other (1+) Skin: No Rashes Labs Laboratory Tests Test 05/05/21 12:21 05/05/21 17:28 05/06/21 05:00 05/06/21 08:00 Glucose (Fingerstick) 70 mg/dL (70-99) 75 mg/dL (70-99) White Blood Count 8.5 x10^3/uL (4.0-11.0) Red Blood Count 2.56 x10^6/uL (3.50-5.40) Hemoglobin 7.6 g/dL (12.0-15.5) Hematocrit 22.8 % (36.0-47.0) Mean Corpuscular Volume 89 fL (79-100) Mean Corpuscular Hemoglobin 30 pg (25-35) Mean Corpuscular Hemoglobin Concent 33 g/dL (31-37) Red Cell Distribution Width 15.1 % (11.5-14.5) Platelet Count 290 x10^3/uL (140-400) Neutrophils (%) (Auto) 67 % (31-73) Lymphocytes (%) (Auto) 21 % (24-48) Monocytes (%) (Auto) 7 % (0-9) Eosinophils (%) (Auto) 4 % (0-3) Basophils (%) (Auto) 1 % (0-3) Neutrophils # (Auto) 5.7 x10^3/uL (1.8-7.7) Lymphocytes # (Auto) 1.8 x10^3/uL (1.0-4.8) Monocytes # (Auto) 0.6 x10^3/uL (0.0-1.1) Eosinophils # (Auto) 0.4 x10^3/uL (0.0-0.7) Basophils # (Auto) 0.0 x10^3/uL (0.0-0.2) Sodium Level 143 mmol/L (136-145) Potassium Level 3.4 mmol/L (3.5-5.1) Chloride Level 110 mmol/L (98-107) Carbon Dioxide Level 31 mmol/L (21-32) Anion Gap 2 (6-14) Blood Urea Nitrogen 16 mg/dL (7-20) Creatinine 0.7 mg/dL (0.6-1.0) Estimated GFR (Cockcroft-Gault) 84.5 Glucose Level 99 mg/dL (70-99) Calcium Level 7.3 mg/dL (8.5-10.1) Magnesium Level 2.0 mg/dL (1.8-2.4) O2 Saturation 95 % (92-99) Arterial Blood pH 7.43 (7.35-7.45) Arterial Blood pCO2 at Patient Temp 42 mmHg (35-46) Arterial Blood pO2 at Patient Temp 83 mmHg (65-108) Arterial Blood HCO3 27 mmol/L (21-28) Arterial Blood Base Excess 2 mmol/L (-3-3) FiO2 50 Test 05/06/21 12:35 05/06/21 16:00 05/06/21 17:57 05/07/21 05:50 Glucose (Fingerstick) 73 mg/dL (70-99) 83 mg/dL (70-99) Potassium Level 3.8 mmol/L (3.5-5.1) 3.7 mmol/L (3.5-5.1) White Blood Count 11.1 x10^3/uL (4.0-11.0) Red Blood Count 2.96 x10^6/uL (3.50-5.40) Hemoglobin 8.6 g/dL (12.0-15.5) Hematocrit 26.0 % (36.0-47.0) Mean Corpuscular Volume 88 fL (79-100) Mean Corpuscular Hemoglobin 29 pg (25-35) Mean Corpuscular Hemoglobin Concent 33 g/dL (31-37) Red Cell Distribution Width 15.1 % (11.5-14.5) Platelet Count 320 x10^3/uL (140-400) Neutrophils (%) (Auto) 70 % (31-73) Lymphocytes (%) (Auto) 21 % (24-48) Monocytes (%) (Auto) 5 % (0-9) Eosinophils (%) (Auto) 4 % (0-3) Basophils (%) (Auto) 1 % (0-3) Neutrophils # (Auto) 7.7 x10^3/uL (1.8-7.7) Lymphocytes # (Auto) 2.3 x10^3/uL (1.0-4.8) Monocytes # (Auto) 0.6 x10^3/uL (0.0-1.1) Eosinophils # (Auto) 0.4 x10^3/uL (0.0-0.7) Basophils # (Auto) 0.1 x10^3/uL (0.0-0.2) Sodium Level 145 mmol/L (136-145) Chloride Level 109 mmol/L (98-107) Carbon Dioxide Level 28 mmol/L (21-32) Anion Gap 8 (6-14) Blood Urea Nitrogen 16 mg/dL (7-20) Creatinine 0.6 mg/dL (0.6-1.0) Estimated GFR (Cockcroft-Gault) 101.0 Glucose Level 104 mg/dL (70-99) Calcium Level 7.7 mg/dL (8.5-10.1) Test 05/07/21 08:00 O2 Saturation 95 % (92-99) Arterial Blood pH 7.43 (7.35-7.45) Arterial Blood pCO2 at Patient Temp 39 mmHg (35-46) Arterial Blood pO2 at Patient Temp 81 mmHg (65-108) Arterial Blood HCO3 25 mmol/L (21-28) Arterial Blood Base Excess 1 mmol/L (-3-3) FiO2 45% ac 20 450 5 Laboratory Tests Test 05/06/21 12:35 05/06/21 16:00 05/06/21 17:57 05/07/21 05:50 Glucose (Fingerstick) 73 mg/dL (70-99) 83 mg/dL (70-99) Potassium Level 3.8 mmol/L (3.5-5.1) 3.7 mmol/L (3.5-5.1) White Blood Count 11.1 x10^3/uL (4.0-11.0) Red Blood Count 2.96 x10^6/uL (3.50-5.40) Hemoglobin 8.6 g/dL (12.0-15.5) Hematocrit 26.0 % (36.0-47.0) Mean Corpuscular Volume 88 fL (79-100) Mean Corpuscular Hemoglobin 29 pg (25-35) Mean Corpuscular Hemoglobin Concent 33 g/dL (31-37) Red Cell Distribution Width 15.1 % (11.5-14.5) Platelet Count 320 x10^3/uL (140-400) Neutrophils (%) (Auto) 70 % (31-73) Lymphocytes (%) (Auto) 21 % (24-48) Monocytes (%) (Auto) 5 % (0-9) Eosinophils (%) (Auto) 4 % (0-3) Basophils (%) (Auto) 1 % (0-3) Neutrophils # (Auto) 7.7 x10^3/uL (1.8-7.7) Lymphocytes # (Auto) 2.3 x10^3/uL (1.0-4.8) Monocytes # (Auto) 0.6 x10^3/uL (0.0-1.1) Eosinophils # (Auto) 0.4 x10^3/uL (0.0-0.7) Basophils # (Auto) 0.1 x10^3/uL (0.0-0.2) Sodium Level 145 mmol/L (136-145) Chloride Level 109 mmol/L (98-107) Carbon Dioxide Level 28 mmol/L (21-32) Anion Gap 8 (6-14) Blood Urea Nitrogen 16 mg/dL (7-20) Creatinine 0.6 mg/dL (0.6-1.0) Estimated GFR (Cockcroft-Gault) 101.0 Glucose Level 104 mg/dL (70-99) Calcium Level 7.7 mg/dL (8.5-10.1) Test 05/07/21 08:00 O2 Saturation 95 % (92-99) Arterial Blood pH 7.43 (7.35-7.45) Arterial Blood pCO2 at Patient Temp 39 mmHg (35-46) Arterial Blood pO2 at Patient Temp 81 mmHg (65-108) Arterial Blood HCO3 25 mmol/L (21-28) Arterial Blood Base Excess 1 mmol/L (-3-3) FiO2 45% ac 20 450 5 Medications Active Scripts Medications Dose Route/Sig Max Daily Dose Days Date Category Dose Instructions Easy Neb Compressor Nebulizer (Nebulizer and Compressor) 1 Each Each Each MC PRN PRN 05/01/21 Rx Use with albuterol as needed every 4 hours Albuterol Sulfate Neb Soln (Albuterol Sulfate) 2.5 Mg/3 Ml Vial.neb 1 Vial NEB PRN Q4HRS PRN 30 05/01/21 Rx Levofloxacin 750 Mg Tablet 1 Tab PO DAILY 5 05/01/21 Rx Seroquel (Quetiapine Fumarate) 25 Mg Tablet 25 Mg PO BID 04/26/21 Reported Mysoline (Primidone) 50 Mg Tablet 50 Mg PO DAILY 04/26/21 Reported Escitalopram Oxalate 20 Mg Tablet 20 Mg PO DAILY 03/26/21 Reported Omeprazole 20 Mg Capsule.dr 20 Mg PO DAILY 03/26/21 Reported Eliquis (Apixaban) 5 Mg Tablet 5 Mg PO BID 03/26/21 Reported Lasix (Furosemide) 40 Mg Tablet 40 Mg PO DAILY 03/26/21 Reported Comments Chest x-ray reviewed 05/07/2021 Diffuse bilateral lung infiltrates reviewed cxr 05/05 ett ok Severe diffuse pulmonary opacities, decreased compared to prior. Impression . 1. Acute hypoxic respiratory failure secondary to likely hypoxic respiratory arrest leading to cardiac arrest.This is her second intubation in a week, ? tracheal or sub- glottic stenosis contributing to mucous plug/ hypoxic respiratory arrest. 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 Now, she has progressive worsening of the infiltrates, especially in the upper lobes. This could be related to a component of aspiration pneumonia. 2. The patient with underlying history of COVID-19 viral pneumonia in late November and early December with chronic interstitial infiltrates. She required another hospitalization few weeks ago with respiratory failure, but was successfully extubated. 3. Status post tracheostomy followed by decannulation.. 4. Cannot exclude the possibility of subglottic stenosis contributing to respiratory arrest. 5. Underlying obesity. 6. Abnormal CT chest as discussed above. 7. Bleeding around the endotracheal tube. She had hemoptysis before coming to the hospital. Could be contributed by pneumonia as well as use of Eliquis at home. Bleeding has slowed down. Page of Plan . 05/07 1. cont vent support setting reviewed, FiO2, keep saturation 94% and above. ett bleeding improved 2. Continue empiric antibiotics. 3. Follow up chest x-rays reviewed Severe diffuse pulmonary opacities, 4. Continue to hold Eliquis. We will ask Cardiology for any cardiac reason for her being on Eliquis. Question history of A. fib. 5. CT of the neck to rule out any subglottic stenosis. 6. SCDs for DVT prophylaxis and hold off Lovenox until endotracheal bleeding has completely resolved. 7. PPI for stress ulcer prophylaxis. 8. Discussed with RN. Chart reviewed, imaging studies reviewed. 05/06 1. cont vent support setting reviewed, FiO2, keep saturation 94% and above. ett bleeding improved minimal bleeding now 2. Continue empiric antibiotics. 3. Follow up chest x-rays reviewed Severe diffuse pulmonary opacities, decreased compared to prior. 4. Continue to hold Eliquis. We will ask Cardiology for any cardiac reason for her being on Eliquis. Question history of A. fib. 5. We may need a CT of the neck to rule out any subglottic stenosis. 6. SCDs for DVT prophylaxis and hold off Lovenox until endotracheal bleeding has completely resolved. 7. PPI for stress ulcer prophylaxis. 8. Discussed with RN. Chart reviewed, imaging studies reviewed. JEFFREY LYONS MD May 07, 2021 10:20
--- NOTE | 2021-05-07 11:02 | NUR ---
SS following up with discharge planning. SS reviewed pt chart and discussed with pt RN. Pt is currently on the vent at 45%. COVID19 negative. Pt on Propofol, Fentanyl, and Versed. Pt on IV Vancomycin and IV Cefepime. Not ready. SS will continue to follow for discharge planning.
[2021-05-07] MEDS: VANCOMYCIN 1 GM in IV NORMAL SALINE 250ML 250 ML IV SCH ×2 (11:24)
[2021-05-07] MEDS: NOREPINEPHRINE VIAL 8 MG in IV DEXTROSE 5% 250 ML IV PRN (11:40)
--- NOTE | 2021-05-07 11:57 | PDOC ---
[facility] PROGRESS NOTE Date of Service DOS: DATE: 05/07/21 TIME: 11:55 Chief Complaint Chief Complaint Respiratory failure Probable bacterial pneumonia Recent COVID-19 in November of last year Possible tracheal [place] History of tracheostomy with decannulation Chronic anticoagulation with some hemoptysis Septic shock Lactic acidosis Acute hypoxic respiratory failure secondary to likely bacterial pneumonia versus viral pneumonia, septic shock, lactic acidosis History of Present Illness History of Present Illness 05/07/2021 Patient seen and examined in the ICU He remains on the vent AC/20/450/40 percent with 5 of PEEP Sedated with Versed fentanyl and propofol Discussed with RN Chart reviewed She remains very critically ill 05/06/2021 Patient seen and examined in the ICU She remains on the ventilator AC/20/450/50 percent with 5 of PEEP OG at 40 cc an hour Sedated with fentanyl and propofol and Versed Has Simon to bedside drainage SCDs are in place Chart reviewed Discussed with RN She remains critically ill 05/05/2021 Patient seen and examined in the ICU She remains on the ventilator AC/20/450/50 percent with 5 of PEEP Simon bedside drainage SCDs in place OG at 30 cc an hour Sedated with fentanyl propofol and Versed Chart reviewed Discussed with RN She remains critically ill 05/04/2021 Patient seen and examined in the ICU She is currently on the vent AC/20/450/50 +5 of PEEP Chart reviewed Discussed with RN She is sedated with Versed fentanyl Has IV Levophed hanging Vitals/I&O Vitals/I&O: Vital Signs Date Time Temp Pulse Resp B/P (MAP) Pulse Ox O2 Delivery O2 Flow Rate FiO2 05/07/21 11:30 96 Ventilator 05/07/21 07:04 20 05/07/21 06:34 15.0 05/07/21 05:48 67 114/61 05/07/21 04:00 99.1 99.1 I & O 05/06/21 05/06/21 05/07/21 15:00 23:00 07:00 Intake Total 100 ml 1036 ml 846.5 ml Output Total 270 ml 170 ml 400 ml Balance -170 ml 866 ml 446.5 ml Physical Exam General: Other (Intubated) Heart: Regular rate Lungs: Other (Decreased breath sounds) Abdomen: Normal bowel sounds Extremities: No clubbing Skin: No rashes Labs Labs: Laboratory Tests Test 05/06/21 12:35 05/06/21 16:00 05/06/21 17:57 05/07/21 05:50 Glucose (Fingerstick) 73 mg/dL (70-99) 83 mg/dL (70-99) Potassium Level 3.8 mmol/L (3.5-5.1) 3.7 mmol/L (3.5-5.1) White Blood Count 11.1 x10^3/uL (4.0-11.0) Red Blood Count 2.96 x10^6/uL (3.50-5.40) Hemoglobin 8.6 g/dL (12.0-15.5) Hematocrit 26.0 % (36.0-47.0) Mean Corpuscular Volume 88 fL (79-100) Mean Corpuscular Hemoglobin 29 pg (25-35) Mean Corpuscular Hemoglobin Concent 33 g/dL (31-37) Red Cell Distribution Width 15.1 % (11.5-14.5) Platelet Count 320 x10^3/uL (140-400) Neutrophils (%) (Auto) 70 % (31-73) Lymphocytes (%) (Auto) 21 % (24-48) Monocytes (%) (Auto) 5 % (0-9) Eosinophils (%) (Auto) 4 % (0-3) Basophils (%) (Auto) 1 % (0-3) Neutrophils # (Auto) 7.7 x10^3/uL (1.8-7.7) Lymphocytes # (Auto) 2.3 x10^3/uL (1.0-4.8) Monocytes # (Auto) 0.6 x10^3/uL (0.0-1.1) Eosinophils # (Auto) 0.4 x10^3/uL (0.0-0.7) Basophils # (Auto) 0.1 x10^3/uL (0.0-0.2) Sodium Level 145 mmol/L (136-145) Chloride Level 109 mmol/L (98-107) Carbon Dioxide Level 28 mmol/L (21-32) Anion Gap 8 (6-14) Blood Urea Nitrogen 16 mg/dL (7-20) Creatinine 0.6 mg/dL (0.6-1.0) Estimated GFR (Cockcroft-Gault) 101.0 Glucose Level 104 mg/dL (70-99) Calcium Level 7.7 mg/dL (8.5-10.1) Test 05/07/21 08:00 O2 Saturation 95 % (92-99) Arterial Blood pH 7.43 (7.35-7.45) Arterial Blood pCO2 at Patient Temp 39 mmHg (35-46) Arterial Blood pO2 at Patient Temp 81 mmHg (65-108) Arterial Blood HCO3 25 mmol/L (21-28) Arterial Blood Base Excess 1 mmol/L (-3-3) FiO2 45% ac 20 450 5 Assessment and Plan Assessmemt and Plan Problems Medical Problems: (1) Cardiac arrest Status: Acute (2) Hypokalemia Status: Acute (3) Lactic acidosis Status: Acute (4) Pneumonia Status: Acute (5) Respiratory failure, acute Status: Acute (6) Septic shock Status: Acute Respiratory failure Probable bacterial pneumonia Recent COVID-19 in November of last year Possible tracheal [place] History of tracheostomy with decannulation Chronic anticoagulation with some hemoptysis Septic shock Lactic acidosis Acute hypoxic respiratory failure secondary to likely bacterial pneumonia versus viral pneumonia, septic shock, lactic acidosis Plan ICU monitoring Vent weaning IV antibiotics Continue sedation with Versed and fentanyl Maintenance IV Trying to wean off Levophed Supportive alf meds if possible Trend labs Appreciate subspecialist input DVT prophylaxis Full code Prognosis very guarded CC time 32 minutes Comment Review of Relevant I have reviewed the following items davina (where applicable) has been applied. Medications: Current Medications Medications (Trade) Dose Ordered Sig/Qing Route PRN Reason Start Time Stop Time Status Last Admin Dose Admin Norepinephrine Bitartrate 8 mg/ Dextrose 258 ml @ 21.672 mls/ hr CONT PRN IV PER PROTOCOL 05/07/21 11:30 05/07/21 11:40 Justifications for Admission Other Justification LUCERO PERAZA III DO May 07, 2021 11:57
--- NOTE | 2021-05-07 15:34 | NUR ---
Patient unstable, requiring rapid titration of Levophed d/t sustained MAP <65 beginning at 1045. At 1130 Levophed started at 0.1 mcg/kg/min and patient stabilized at 1145 with MAP 1230 with Levophed gtt currently infusing at 0.03 mcg/kg/min; the max rate during this time was 0.1 mcg/kg/min of medication administered during charting block which ended at 1145. See paper chart for vital sign d/t [employer] malfunction.
[2021-05-07] MEDS: VANCOMYCIN PER PHARMACY MC PRN (16:02)
--- NOTE | 2021-05-07 17:49 | RAD ---
CT scan of the neck without contrast 05/07/2021 CLINICAL HISTORY: Concern for subglottic or tracheal stenosis. TECHNIQUE: Unenhanced contiguous, 0.625 mm axial sections were obtained through the neck. 3 mm recons tructed sagittal, axial and coronal images were obtained. One or more of the following individualized dose reduction techniques were utilized for this study: 1. Automated exposure control. 2. Adjustment of the mA and/or kV according to patient size. 3. Use of iterative reconstruction technique. FINDINGS: Comparison is made to a CTA of the chest dated 05/03/2021. An ET tube is seen, unchanged in position. A NG tube is seen unchanged in position. A right internal jugular central venous catheter is again seen is extending into the superior vena cava. The presence of the ET and NG tubes limits evaluation of the mucosal structures of the nasopharynx, oral pharynx, hypopharynx and larynx. No abnormal soft tissue mass is definitely seen. A linear area of increased attenuation is seen within the trachea at the level of the thoracic inlet. This could represent a tracheal web versus a linear band of mucous. No area of stenosis is seen invo lving the trachea. The parotid, submandibular glands and thyroid gland are within normal limits. Mild to moderate mucosa l thickening is seen scattered throughout the paranasal sinuses. The orbits are within normal limits. No cervical lymphadenopathy is seen. No abnormal fluid collection is seen suggest evidence of an abs cess. Diffuse perihilar infiltrates are seen throughout the visualized lungs. Degenerative changes are seen involving the uncovertebral and facet joints scattered throughout the cervical spine. IMPRESSION: A linear band of increased attenuation is seen involving the trachea at the level of the thoracic inlet which could represent a tracheal web versus a linear band of mucus. No tracheal stenos is is seen. Electronically signed by: Alexandr Hyde MD (05/07/2021 5:46 PM) [id number]
[2021-05-08] VITALS (23 sets, daily range): BP systolic 86–193; BP diastolic 45–104
[2021-05-08] MEDS: VANCOMYCIN 1 GM in IV NORMAL SALINE 250ML 250 ML IV SCH ×3 (00:26→23:47)
[2021-05-08] MEDS: INSULIN LISPRO 300 UNITS/3 ML VIAL. SQ SCH ×5 (05:43→23:39)
[2021-05-08] MEDS: CEFEPIME HCL IV Push 1 GM VIAL. IVP SCH ×3 (06:32→22:03)
[2021-05-08 06:47] LABS: BASO % 1 % (0-3); EOS # 0.4 x10^3/uL (0.0-0.7); EOS % 5 % (0-3); HEMATOCRIT 22.2 % (36.0-47.0); HEMOGLOBIN 7.3 g/dL (12.0-15.5); LYMPH # 1.4 x10^3/uL (1.0-4.8); LYMPH % 17 % (24-48); MEAN CORPUSCULAR HEMOGLOBIN 29 pg (25-35); MEAN CORPUSCULAR HGB CONC 33 g/dL (31-37); MEAN CORPUSCULAR VOLUME 88 fL (79-100); MONO # 0.4 x10^3/uL (0.0-1.1); MONO % 6 % (0-9); NEUT # 5.7 x10^3/uL (1.8-7.7); NEUT % 72 % (31-73); PLATELET COUNT 265 x10^3/uL (140-400); RED BLOOD COUNT 2.53 x10^6/uL (3.50-5.40); RED CELL DISTRIBUTION WIDTH 14.9 % (11.5-14.5); WHITE BLOOD COUNT 7.9 x10^3/uL (4.0-11.0)
[2021-05-08 06:58] LABS: CALCIUM 7.2 mg/dL (8.5-10.1); CREATININE 0.6 mg/dL (0.6-1.0); POTASSIUM 3.6 mmol/L (3.5-5.1)
[2021-05-08] MEDS: PRIMIDONE 50 MG TABLET PO SCH (07:56)
[2021-05-08] MEDS: CITALOPRAM 20 MG TABLET. PO SCH (07:56)
[2021-05-08] MEDS: PANTOPRAZOLE IV PUSH 40 MG VIAL. IVP SCH (07:56)
[2021-05-08] MEDS: MIDAZOLAM 100mg/100ml NS BAG 100 ML IV PRN (07:57)
[2021-05-08] MEDS: QUEtiapine 25 MG TABLET. PO SCH ×2 (07:57→19:52)
[2021-05-08 08:05] LABS: BASE EXCESS ABG 3 mmol/L (-3-3); HCO3 ABG 27 mmol/L (21-28); PCO2 ABG 40 mmHg (35-46); PO2 ABG 81 mmHg (65-108); SAT O2 ABG 95 % (92-99)
[2021-05-08 08:15] LABS: FIO2 ABG 40% AC 20 450 5
[2021-05-08] MEDS: ELECTROLYTE (ICU) PROTOCOL. MC SCH (09:00)
[2021-05-08] MEDS: VANCOMYCIN PER PHARMACY MC PRN (10:06)
--- NOTE | 2021-05-08 11:00 | PDOC ---
PULMONARY PROGRESS NOTES DATE: 05/08/21 TIME: 10:58 Subjective Remains on assist control mode. Down to 40% FiO2. Sedated Vitals Vital Signs Date Time Temp Pulse Resp B/P (MAP) Pulse Ox O2 Delivery O2 Flow Rate FiO2 05/08/21 09:00 98.9 62 20 153/72 96 Ventilator 98.9 05/08/21 07:57 97.0 Comments ros unable to obtain intubated sedated no distress nc at rrr no accessory muscle use abd obese no rash Lungs: Other (Decreased breath sounds) Cardiovascular: S1, S2 Extremities: Other (1+) Skin: No Rashes Labs Laboratory Tests Test 05/06/21 12:35 05/06/21 16:00 05/06/21 17:57 05/07/21 05:50 Glucose (Fingerstick) 73 mg/dL (70-99) 83 mg/dL (70-99) Potassium Level 3.8 mmol/L (3.5-5.1) 3.7 mmol/L (3.5-5.1) White Blood Count 11.1 x10^3/uL (4.0-11.0) Red Blood Count 2.96 x10^6/uL (3.50-5.40) Hemoglobin 8.6 g/dL (12.0-15.5) Hematocrit 26.0 % (36.0-47.0) Mean Corpuscular Volume 88 fL (79-100) Mean Corpuscular Hemoglobin 29 pg (25-35) Mean Corpuscular Hemoglobin Concent 33 g/dL (31-37) Red Cell Distribution Width 15.1 % (11.5-14.5) Platelet Count 320 x10^3/uL (140-400) Neutrophils (%) (Auto) 70 % (31-73) Lymphocytes (%) (Auto) 21 % (24-48) Monocytes (%) (Auto) 5 % (0-9) Eosinophils (%) (Auto) 4 % (0-3) Basophils (%) (Auto) 1 % (0-3) Neutrophils # (Auto) 7.7 x10^3/uL (1.8-7.7) Lymphocytes # (Auto) 2.3 x10^3/uL (1.0-4.8) Monocytes # (Auto) 0.6 x10^3/uL (0.0-1.1) Eosinophils # (Auto) 0.4 x10^3/uL (0.0-0.7) Basophils # (Auto) 0.1 x10^3/uL (0.0-0.2) Sodium Level 145 mmol/L (136-145) Chloride Level 109 mmol/L (98-107) Carbon Dioxide Level 28 mmol/L (21-32) Anion Gap 8 (6-14) Blood Urea Nitrogen 16 mg/dL (7-20) Creatinine 0.6 mg/dL (0.6-1.0) Estimated GFR (Cockcroft-Gault) 101.0 Glucose Level 104 mg/dL (70-99) Calcium Level 7.7 mg/dL (8.5-10.1) Test 05/07/21 08:00 05/07/21 12:01 05/07/21 17:41 05/07/21 23:54 O2 Saturation 95 % (92-99) Arterial Blood pH 7.43 (7.35-7.45) Arterial Blood pCO2 at Patient Temp 39 mmHg (35-46) Arterial Blood pO2 at Patient Temp 81 mmHg (65-108) Arterial Blood HCO3 25 mmol/L (21-28) Arterial Blood Base Excess 1 mmol/L (-3-3) FiO2 45% ac 20 450 5 Glucose (Fingerstick) 77 mg/dL (70-99) 91 mg/dL (70-99) 97 mg/dL (70-99) Test 05/08/21 05:42 05/08/21 06:00 05/08/21 08:00 Glucose (Fingerstick) 93 mg/dL (70-99) White Blood Count 7.9 x10^3/uL (4.0-11.0) Red Blood Count 2.53 x10^6/uL (3.50-5.40) Hemoglobin 7.3 g/dL (12.0-15.5) Hematocrit 22.2 % (36.0-47.0) Mean Corpuscular Volume 88 fL (79-100) Mean Corpuscular Hemoglobin 29 pg (25-35) Mean Corpuscular Hemoglobin Concent 33 g/dL (31-37) Red Cell Distribution Width 14.9 % (11.5-14.5) Platelet Count 265 x10^3/uL (140-400) Neutrophils (%) (Auto) 72 % (31-73) Lymphocytes (%) (Auto) 17 % (24-48) Monocytes (%) (Auto) 6 % (0-9) Eosinophils (%) (Auto) 5 % (0-3) Basophils (%) (Auto) 1 % (0-3) Neutrophils # (Auto) 5.7 x10^3/uL (1.8-7.7) Lymphocytes # (Auto) 1.4 x10^3/uL (1.0-4.8) Monocytes # (Auto) 0.4 x10^3/uL (0.0-1.1) Eosinophils # (Auto) 0.4 x10^3/uL (0.0-0.7) Basophils # (Auto) 0.0 x10^3/uL (0.0-0.2) Sodium Level 141 mmol/L (136-145) Potassium Level 3.6 mmol/L (3.5-5.1) Chloride Level 107 mmol/L (98-107) Carbon Dioxide Level 29 mmol/L (21-32) Anion Gap 5 (6-14) Blood Urea Nitrogen 15 mg/dL (7-20) Creatinine 0.6 mg/dL (0.6-1.0) Estimated GFR (Cockcroft-Gault) 101.0 Glucose Level 100 mg/dL (70-99) Calcium Level 7.2 mg/dL (8.5-10.1) O2 Saturation 95 % (92-99) Arterial Blood pH 7.45 (7.35-7.45) Arterial Blood pCO2 at Patient Temp 40 mmHg (35-46) Arterial Blood pO2 at Patient Temp 81 mmHg (65-108) Arterial Blood HCO3 27 mmol/L (21-28) Arterial Blood Base Excess 3 mmol/L (-3-3) FiO2 40% ac 20 450 5 Laboratory Tests Test 05/07/21 12:01 05/07/21 17:41 05/07/21 23:54 05/08/21 05:42 Glucose (Fingerstick) 77 mg/dL (70-99) 91 mg/dL (70-99) 97 mg/dL (70-99) 93 mg/dL (70-99) Test 05/08/21 06:00 05/08/21 08:00 White Blood Count 7.9 x10^3/uL (4.0-11.0) Red Blood Count 2.53 x10^6/uL (3.50-5.40) Hemoglobin 7.3 g/dL (12.0-15.5) Hematocrit 22.2 % (36.0-47.0) Mean Corpuscular Volume 88 fL (79-100) Mean Corpuscular Hemoglobin 29 pg (25-35) Mean Corpuscular Hemoglobin Concent 33 g/dL (31-37) Red Cell Distribution Width 14.9 % (11.5-14.5) Platelet Count 265 x10^3/uL (140-400) Neutrophils (%) (Auto) 72 % (31-73) Lymphocytes (%) (Auto) 17 % (24-48) Monocytes (%) (Auto) 6 % (0-9) Eosinophils (%) (Auto) 5 % (0-3) Basophils (%) (Auto) 1 % (0-3) Neutrophils # (Auto) 5.7 x10^3/uL (1.8-7.7) Lymphocytes # (Auto) 1.4 x10^3/uL (1.0-4.8) Monocytes # (Auto) 0.4 x10^3/uL (0.0-1.1) Eosinophils # (Auto) 0.4 x10^3/uL (0.0-0.7) Basophils # (Auto) 0.0 x10^3/uL (0.0-0.2) Sodium Level 141 mmol/L (136-145) Potassium Level 3.6 mmol/L (3.5-5.1) Chloride Level 107 mmol/L (98-107) Carbon Dioxide Level 29 mmol/L (21-32) Anion Gap 5 (6-14) Blood Urea Nitrogen 15 mg/dL (7-20) Creatinine 0.6 mg/dL (0.6-1.0) Estimated GFR (Cockcroft-Gault) 101.0 Glucose Level 100 mg/dL (70-99) Calcium Level 7.2 mg/dL (8.5-10.1) O2 Saturation 95 % (92-99) Arterial Blood pH 7.45 (7.35-7.45) Arterial Blood pCO2 at Patient Temp 40 mmHg (35-46) Arterial Blood pO2 at Patient Temp 81 mmHg (65-108) Arterial Blood HCO3 27 mmol/L (21-28) Arterial Blood Base Excess 3 mmol/L (-3-3) FiO2 40% ac 20 450 5 Medications Active Scripts Medications Dose Route/Sig Max Daily Dose Days Date Category Dose Instructions Easy Neb Compressor Nebulizer (Nebulizer and Compressor) 1 Each Each Each MC PRN PRN 05/01/21 Rx Use with albuterol as needed every 4 hours Albuterol Sulfate Neb Soln (Albuterol Sulfate) 2.5 Mg/3 Ml Vial.neb 1 Vial NEB PRN Q4HRS PRN 30 05/01/21 Rx Levofloxacin 750 Mg Tablet 1 Tab PO DAILY 5 05/01/21 Rx Seroquel (Quetiapine Fumarate) 25 Mg Tablet 25 Mg PO BID 04/26/21 Reported Mysoline (Primidone) 50 Mg Tablet 50 Mg PO DAILY 04/26/21 Reported Escitalopram Oxalate 20 Mg Tablet 20 Mg PO DAILY 03/26/21 Reported Omeprazole 20 Mg Capsule.dr 20 Mg PO DAILY 03/26/21 Reported Eliquis (Apixaban) 5 Mg Tablet 5 Mg PO BID 03/26/21 Reported Lasix (Furosemide) 40 Mg Tablet 40 Mg PO DAILY 03/26/[address] neck 05/07/2021 No definite tracheal stenosis seen. Chest x-ray reviewed 05/07/2021 Diffuse bilateral lung infiltrates reviewed cxr 05/05 ett ok Severe diffuse pulmonary opacities, decreased compared to prior. Impression . 1. Acute hypoxic respiratory failure secondary to likely hypoxic respiratory arrest leading to cardiac arrest.This is her second intubation in a week, ? tracheal or sub- glottic stenosis contributing to mucous plug/ hypoxic respiratory arrest. 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 Now, she has progressive worsening of the infiltrates, especially in the upper lobes. This could be related to a component of aspiration pneumonia. 2. The patient with underlying history of COVID-19 viral pneumonia in late November and early December with chronic interstitial infiltrates. She required another hospitalization few weeks ago with respiratory failure, but was successfully extubated. 3. Status post tracheostomy followed by decannulation.. 4. Cannot exclude the possibility of subglottic stenosis contributing to respiratory arrest. 5. Underlying obesity. 6. Abnormal CT chest as discussed above. 7. Bleeding around the endotracheal tube. She had hemoptysis before coming to the hospital. Could be contributed by pneumonia as well as use of Eliquis at home. Bleeding has slowed down. 8. Anemia Page of Plan . 05/08 1. cont vent support setting reviewed, FiO2, keep saturation 94% and above. ett bleeding improved 2. Continue empiric antibiotics. 3. Follow up chest x-rays reviewed Severe diffuse pulmonary opacities, 4. Continue to hold Eliquis. 5. CT of the neck without any subglottic stenosis. 6. SCDs for DVT prophylaxis and hold off Lovenox. No further endotracheal bleeding seen but hemoglobin trending down. 7. PPI for stress ulcer prophylaxis. 8. Discussed with RN. Chart reviewed, imaging studies reviewed. 9. We will wean sedation off. And assess her ability to tolerate CPAP trials 05/07 1. cont vent support setting reviewed, FiO2, keep saturation 94% and above. ett bleeding improved 2. Continue empiric antibiotics. 3. Follow up chest x-rays reviewed Severe diffuse pulmonary opacities, 4. Continue to hold Eliquis. We will ask Cardiology for any cardiac reason for her being on Eliquis. Question history of A. fib. 5. CT of the neck to rule out any subglottic stenosis. 6. SCDs for DVT prophylaxis and hold off Lovenox until endotracheal bleeding has completely resolved. 7. PPI for stress ulcer prophylaxis. 8. Discussed with RN. Chart reviewed, imaging studies reviewed. 05/06 1. cont vent support setting reviewed, FiO2, keep saturation 94% and above. ett bleeding improved minimal bleeding now 2. Continue empiric antibiotics. 3. Follow up chest x-rays reviewed Severe diffuse pulmonary opacities, decreased compared to prior. 4. Continue to hold Eliquis. We will ask Cardiology for any cardiac reason for her being on Eliquis. Question history of A. fib. 5. We may need a CT of the neck to rule out any subglottic stenosis. 6. SCDs for DVT prophylaxis and hold off Lovenox until endotracheal bleeding has completely resolved. 7. PPI for stress ulcer prophylaxis. 8. Discussed with RN. Chart reviewed, imaging studies reviewed. JEFFREY LYONS MD May 08, 2021 11:00
--- NOTE | 2021-05-08 11:09 | PDOC ---
[facility] PROGRESS NOTE Date of Service DOS: DATE: 05/08/21 TIME: 11:07 Chief Complaint Chief Complaint Respiratory failure Probable bacterial pneumonia Recent COVID-19 in November of last year Possible tracheal [place] History of tracheostomy with decannulation Chronic anticoagulation with some hemoptysis Septic shock Lactic acidosis Acute hypoxic respiratory failure secondary to likely bacterial pneumonia versus viral pneumonia, septic shock, lactic acidosis History of Present Illness History of Present Illness 05/08/2021 Patient seen and examined in the ICU She remains on the vent AC/20/450 with 40% FiO2 and 5 of PEEP Sedated with fentanyl and Versed On IV Levophed Discussed with RN Chart reviewed She remains very critically ill 05/07/2021 Patient seen and examined in the ICU He remains on the vent AC/20/450/40 percent with 5 of PEEP Sedated with Versed fentanyl and propofol Discussed with RN Chart reviewed She remains very critically ill 05/06/2021 Patient seen and examined in the ICU She remains on the ventilator AC/20/450/50 percent with 5 of PEEP OG at 40 cc an hour Sedated with fentanyl and propofol and Versed Has Simon to bedside drainage SCDs are in place Chart reviewed Discussed with RN She remains critically ill 05/05/2021 Patient seen and examined in the ICU She remains on the ventilator AC/20/450/50 percent with 5 of PEEP Simon bedside drainage SCDs in place OG at 30 cc an hour Sedated with fentanyl propofol and Versed Chart reviewed Discussed with RN She remains critically ill 05/04/2021 Patient seen and examined in the ICU She is currently on the vent AC/20/450/50 +5 of PEEP Chart reviewed Discussed with RN She is sedated with Versed fentanyl Has IV Levophed hanging Vitals/I&O Vitals/I&O: Vital Signs Date Time Temp Pulse Resp B/P (MAP) Pulse Ox O2 Delivery O2 Flow Rate FiO2 05/08/21 09:00 98.9 62 20 153/72 96 Ventilator 98.9 05/08/21 07:57 97.0 I & O 05/07/21 05/07/21 05/08/21 15:00 23:00 07:00 Intake Total 139 ml 986.8 ml 1188 ml Output Total 210 ml 290 ml 215 ml Balance -71 ml 696.8 ml 973 ml Physical Exam General: Other (Intubated) Heart: Regular rate Lungs: Other (Decreased breath sounds) Abdomen: Normal bowel sounds Extremities: No clubbing Skin: No rashes Labs Labs: Laboratory Tests Test 05/07/21 12:01 05/07/21 17:41 05/07/21 23:54 05/08/21 05:42 Glucose (Fingerstick) 77 mg/dL (70-99) 91 mg/dL (70-99) 97 mg/dL (70-99) 93 mg/dL (70-99) Test 05/08/21 06:00 05/08/21 08:00 White Blood Count 7.9 x10^3/uL (4.0-11.0) Red Blood Count 2.53 x10^6/uL (3.50-5.40) Hemoglobin 7.3 g/dL (12.0-15.5) Hematocrit 22.2 % (36.0-47.0) Mean Corpuscular Volume 88 fL (79-100) Mean Corpuscular Hemoglobin 29 pg (25-35) Mean Corpuscular Hemoglobin Concent 33 g/dL (31-37) Red Cell Distribution Width 14.9 % (11.5-14.5) Platelet Count 265 x10^3/uL (140-400) Neutrophils (%) (Auto) 72 % (31-73) Lymphocytes (%) (Auto) 17 % (24-48) Monocytes (%) (Auto) 6 % (0-9) Eosinophils (%) (Auto) 5 % (0-3) Basophils (%) (Auto) 1 % (0-3) Neutrophils # (Auto) 5.7 x10^3/uL (1.8-7.7) Lymphocytes # (Auto) 1.4 x10^3/uL (1.0-4.8) Monocytes # (Auto) 0.4 x10^3/uL (0.0-1.1) Eosinophils # (Auto) 0.4 x10^3/uL (0.0-0.7) Basophils # (Auto) 0.0 x10^3/uL (0.0-0.2) Sodium Level 141 mmol/L (136-145) Potassium Level 3.6 mmol/L (3.5-5.1) Chloride Level 107 mmol/L (98-107) Carbon Dioxide Level 29 mmol/L (21-32) Anion Gap 5 (6-14) Blood Urea Nitrogen 15 mg/dL (7-20) Creatinine 0.6 mg/dL (0.6-1.0) Estimated GFR (Cockcroft-Gault) 101.0 Glucose Level 100 mg/dL (70-99) Calcium Level 7.2 mg/dL (8.5-10.1) O2 Saturation 95 % (92-99) Arterial Blood pH 7.45 (7.35-7.45) Arterial Blood pCO2 at Patient Temp 40 mmHg (35-46) Arterial Blood pO2 at Patient Temp 81 mmHg (65-108) Arterial Blood HCO3 27 mmol/L (21-28) Arterial Blood Base Excess 3 mmol/L (-3-3) FiO2 40% ac 20 450 5 Assessment and Plan Assessmemt and Plan Problems Medical Problems: (1) Cardiac arrest Status: Acute (2) Hypokalemia Status: Acute (3) Lactic acidosis Status: Acute (4) Pneumonia Status: Acute (5) Respiratory failure, acute Status: Acute (6) Septic shock Status: Acute Respiratory failure Probable bacterial pneumonia Recent COVID-19 in November of last year Possible tracheal [place] History of tracheostomy with decannulation Chronic anticoagulation with some hemoptysis Septic shock Lactic acidosis Acute hypoxic respiratory failure secondary to likely bacterial pneumonia versus viral pneumonia, septic shock, lactic acidosis Plan ICU monitoring Vent weaning IV antibiotics Continue sedation with Versed and fentanyl Maintenance IV Trying to wean off Levophed Supportive penitentiary meds if possible Trend labs Appreciate subspecialist input DVT prophylaxis Full code Prognosis very guarded CC time 33 minutes Comment Review of Relevant I have reviewed the following items davina (where applicable) has been applied. Medications: Current Medications Medications (Trade) Dose Ordered Sig/Qing Route PRN Reason Start Time Stop Time Status Last Admin Dose Admin Norepinephrine Bitartrate 8 mg/ Dextrose 258 ml @ 21.672 mls/ hr CONT PRN IV PER PROTOCOL 05/07/21 11:30 05/07/21 11:40 Justifications for Admission Other Justification LUCERO PERAZA III DO May 08, 2021 11:08
--- NOTE | 2021-05-08 12:46 | PDOC ---
MORALES CUNHA [employer] 05/08/21 1246: CARDIO Progress Notes Date and Time Date of Service 05/08/2021 Time of Evaluation 1210 Subjective Subjective: Other (intubated) Vitals Vitals Vital Signs Date Time Temp Pulse Resp B/P (MAP) Pulse Ox O2 Delivery O2 Flow Rate FiO2 05/08/21 11:28 95 Ventilator 05/08/21 11:00 67 20 111/75 05/08/21 09:00 98.9 98.9 05/08/21 07:57 97.0 Weight Weight [ ] Input and Output Intake and Output Intake and Output 05/08/21 07:00 Intake Total 2313.8 ml Output Total 715 ml Balance 1598.8 ml IV Total 849.8 ml Tube Feeding 1264 ml Other 200 ml Output Urine Total 715 ml Gastric Drainage Total 0 ml Laboratory Labs Laboratory Tests Test 05/07/21 17:41 05/07/21 23:54 05/08/21 05:42 05/08/21 06:00 Glucose (Fingerstick) 91 mg/dL (70-99) 97 mg/dL (70-99) 93 mg/dL (70-99) White Blood Count 7.9 x10^3/uL (4.0-11.0) Red Blood Count 2.53 x10^6/uL (3.50-5.40) Hemoglobin 7.3 g/dL (12.0-15.5) Hematocrit 22.2 % (36.0-47.0) Mean Corpuscular Volume 88 fL (79-100) Mean Corpuscular Hemoglobin 29 pg (25-35) Mean Corpuscular Hemoglobin Concent 33 g/dL (31-37) Red Cell Distribution Width 14.9 % (11.5-14.5) Platelet Count 265 x10^3/uL (140-400) Neutrophils (%) (Auto) 72 % (31-73) Lymphocytes (%) (Auto) 17 % (24-48) Monocytes (%) (Auto) 6 % (0-9) Eosinophils (%) (Auto) 5 % (0-3) Basophils (%) (Auto) 1 % (0-3) Neutrophils # (Auto) 5.7 x10^3/uL (1.8-7.7) Lymphocytes # (Auto) 1.4 x10^3/uL (1.0-4.8) Monocytes # (Auto) 0.4 x10^3/uL (0.0-1.1) Eosinophils # (Auto) 0.4 x10^3/uL (0.0-0.7) Basophils # (Auto) 0.0 x10^3/uL (0.0-0.2) Sodium Level 141 mmol/L (136-145) Potassium Level 3.6 mmol/L (3.5-5.1) Chloride Level 107 mmol/L (98-107) Carbon Dioxide Level 29 mmol/L (21-32) Anion Gap 5 (6-14) Blood Urea Nitrogen 15 mg/dL (7-20) Creatinine 0.6 mg/dL (0.6-1.0) Estimated GFR (Cockcroft-Gault) 101.0 Glucose Level 100 mg/dL (70-99) Calcium Level 7.2 mg/dL (8.5-10.1) Test 05/08/21 08:00 05/08/21 11:33 O2 Saturation 95 % (92-99) Arterial Blood pH 7.45 (7.35-7.45) Arterial Blood pCO2 at Patient Temp 40 mmHg (35-46) Arterial Blood pO2 at Patient Temp 81 mmHg (65-108) Arterial Blood HCO3 27 mmol/L (21-28) Arterial Blood Base Excess 3 mmol/L (-3-3) FiO2 40% ac 20 450 5 Glucose (Fingerstick) 89 mg/dL (70-99) Microbiology Micro Microbiology 05/03/21 Blood Culture - Final, Complete NO GROWTH AFTER 5 DAYS Physical Exam HEENT: Other (wide neck) Chest: Symmetric Heart: RRR (SR) Abdomen: Other (obese) Extremities: Other (2-3+ bilateral pedal edema) Neurology: other (just off sedation) Assessment Assessment 1. Out of hospital acute cardiopulmonary arrest. with prior subglottic stenosis. Significant downtime. She remains on a ventilator. off sedation 2. Eliquis therapy: unclear indication, no tachyarrhythmias and no known hx of VTE, defer further to PCP 3. Anemia: Hgb in the 7s 4. Septic shock. Continue on antibiotics. off pressors 5. Hypokalemia. resolved 6. Anoxic encephalopathy Recommendations 1. DC eliquis for now unless clear indication 2. Transfuse as warranted 3. Continue Antibiotic therapy 4. Nothing further cardiac wiggins Justicifation of Admission Dx: Justifications for Admission: Justification of Admission Dx: Yes YUDITH RANGEL MD 05/08/21 1752: CARDIO Progress Notes Assessment Assessment Patient seen and examined I agree with our nurse practitioners assessment and plan. Out of hospital acute cardiopulmonary arrest. with prior subglottic stenosis. Significant downtime. She remains on a ventilator. off sedation. Followed by pulmonary. Eliquis therapy: unclear indication, no tachyarrhythmias and no known hx of VTE, remains off Eliquis Anemia: Hgb in the 7s. Off Eliquis. Continuing to monitor. Septic shock. Continue on antibiotics. off pressors Hypokalemia. resolved Anoxic encephalopathy MORALES CUNHA APRN May 08, 2021 12:46 YUDITH RANGEL MD May 08, 2021 17:52
--- NOTE | 2021-05-08 20:10 | PDOC ---
PROGRESS NOTES Date of Service DATE: 05/08/21 TIME: 20:08 Subjective Subjective Patient seen and examined on 05/07/2021. Note not placed yesterday to dysfunction of the EMR system. Objective Objective Vital Signs Date Time Temp Pulse Resp B/P (MAP) Pulse Ox O2 Delivery O2 Flow Rate FiO2 05/08/21 18:00 94 22 141/61 96 Ventilator 05/08/21 12:51 99.6 99.6 05/08/21 07:57 97.0 Intake and Output 05/08/21 07:00 Intake Total 2313.8 ml Output Total 715 ml Balance 1598.8 ml IV Total 849.8 ml Tube Feeding 1264 ml Other 200 ml Output Urine Total 715 ml Gastric Drainage Total 0 ml Physical Exam Abdomen: Normal bowel sounds Heart: Regular rate General: Other (Intubated) Lungs: Other (Decreased breath sounds) Assessment Assessment Problems Medical Problems: (1) Cardiac arrest Status: Acute (2) Hypokalemia Status: Acute (3) Lactic acidosis Status: Acute (4) Pneumonia Status: Acute (5) Respiratory failure, acute Status: Acute (6) Septic shock Status: Acute 1. Out of hospital acute cardiopulmonary arrest. Significant downtime. She remains on a ventilator. She continues on antibiotics and supportive treatment. Rhythm improved. 2. Recent treatment with Eliquis. I can find no history of atrial fibrillation or other indications for chronic anticoagulation. Holding Eliquis. 3. Septic shock. Continue on antibiotics. Pressors as needed. 4. Hypokalemia. Initial potassium of 2.6. Yesterday reading was 2.9. Morning level of 3.7. Continue replacement and monitoring. Comment Review of Relevant I have reviewed the following items davina (where applicable) has been applied. Labs Laboratory Tests Test 05/07/21 05:50 05/07/21 08:00 05/07/21 12:01 05/07/21 17:41 White Blood Count 11.1 x10^3/uL (4.0-11.0) Red Blood Count 2.96 x10^6/uL (3.50-5.40) Hemoglobin 8.6 g/dL (12.0-15.5) Hematocrit 26.0 % (36.0-47.0) Mean Corpuscular Volume 88 fL (79-100) Mean Corpuscular Hemoglobin 29 pg (25-35) Mean Corpuscular Hemoglobin Concent 33 g/dL (31-37) Red Cell Distribution Width 15.1 % (11.5-14.5) Platelet Count 320 x10^3/uL (140-400) Neutrophils (%) (Auto) 70 % (31-73) Lymphocytes (%) (Auto) 21 % (24-48) Monocytes (%) (Auto) 5 % (0-9) Eosinophils (%) (Auto) 4 % (0-3) Basophils (%) (Auto) 1 % (0-3) Neutrophils # (Auto) 7.7 x10^3/uL (1.8-7.7) Lymphocytes # (Auto) 2.3 x10^3/uL (1.0-4.8) Monocytes # (Auto) 0.6 x10^3/uL (0.0-1.1) Eosinophils # (Auto) 0.4 x10^3/uL (0.0-0.7) Basophils # (Auto) 0.1 x10^3/uL (0.0-0.2) Sodium Level 145 mmol/L (136-145) Potassium Level 3.7 mmol/L (3.5-5.1) Chloride Level 109 mmol/L (98-107) Carbon Dioxide Level 28 mmol/L (21-32) Anion Gap 8 (6-14) Blood Urea Nitrogen 16 mg/dL (7-20) Creatinine 0.6 mg/dL (0.6-1.0) Estimated GFR (Cockcroft-Gault) 101.0 Glucose Level 104 mg/dL (70-99) Calcium Level 7.7 mg/dL (8.5-10.1) O2 Saturation 95 % (92-99) Arterial Blood pH 7.43 (7.35-7.45) Arterial Blood pCO2 at Patient Temp 39 mmHg (35-46) Arterial Blood pO2 at Patient Temp 81 mmHg (65-108) Arterial Blood HCO3 25 mmol/L (21-28) Arterial Blood Base Excess 1 mmol/L (-3-3) FiO2 45% ac 20 450 5 Glucose (Fingerstick) 77 mg/dL (70-99) 91 mg/dL (70-99) Test 05/07/21 23:54 05/08/21 05:42 05/08/21 06:00 05/08/21 08:00 Glucose (Fingerstick) 97 mg/dL (70-99) 93 mg/dL (70-99) White Blood Count 7.9 x10^3/uL (4.0-11.0) Red Blood Count 2.53 x10^6/uL (3.50-5.40) Hemoglobin 7.3 g/dL (12.0-15.5) Hematocrit 22.2 % (36.0-47.0) Mean Corpuscular Volume 88 fL (79-100) Mean Corpuscular Hemoglobin 29 pg (25-35) Mean Corpuscular Hemoglobin Concent 33 g/dL (31-37) Red Cell Distribution Width 14.9 % (11.5-14.5) Platelet Count 265 x10^3/uL (140-400) Neutrophils (%) (Auto) 72 % (31-73) Lymphocytes (%) (Auto) 17 % (24-48) Monocytes (%) (Auto) 6 % (0-9) Eosinophils (%) (Auto) 5 % (0-3) Basophils (%) (Auto) 1 % (0-3) Neutrophils # (Auto) 5.7 x10^3/uL (1.8-7.7) Lymphocytes # (Auto) 1.4 x10^3/uL (1.0-4.8) Monocytes # (Auto) 0.4 x10^3/uL (0.0-1.1) Eosinophils # (Auto) 0.4 x10^3/uL (0.0-0.7) Basophils # (Auto) 0.0 x10^3/uL (0.0-0.2) Sodium Level 141 mmol/L (136-145) Potassium Level 3.6 mmol/L (3.5-5.1) Chloride Level 107 mmol/L (98-107) Carbon Dioxide Level 29 mmol/L (21-32) Anion Gap 5 (6-14) Blood Urea Nitrogen 15 mg/dL (7-20) Creatinine 0.6 mg/dL (0.6-1.0) Estimated GFR (Cockcroft-Gault) 101.0 Glucose Level 100 mg/dL (70-99) Calcium Level 7.2 mg/dL (8.5-10.1) O2 Saturation 95 % (92-99) Arterial Blood pH 7.45 (7.35-7.45) Arterial Blood pCO2 at Patient Temp 40 mmHg (35-46) Arterial Blood pO2 at Patient Temp 81 mmHg (65-108) Arterial Blood HCO3 27 mmol/L (21-28) Arterial Blood Base Excess 3 mmol/L (-3-3) FiO2 40% ac 20 450 5 Test 05/08/21 11:33 Glucose (Fingerstick) 89 mg/dL (70-99) Laboratory Tests Test 05/07/21 23:54 05/08/21 05:42 05/08/21 06:00 05/08/21 08:00 Glucose (Fingerstick) 97 mg/dL (70-99) 93 mg/dL (70-99) White Blood Count 7.9 x10^3/uL (4.0-11.0) Red Blood Count 2.53 x10^6/uL (3.50-5.40) Hemoglobin 7.3 g/dL (12.0-15.5) Hematocrit 22.2 % (36.0-47.0) Mean Corpuscular Volume 88 fL (79-100) Mean Corpuscular Hemoglobin 29 pg (25-35) Mean Corpuscular Hemoglobin Concent 33 g/dL (31-37) Red Cell Distribution Width 14.9 % (11.5-14.5) Platelet Count 265 x10^3/uL (140-400) Neutrophils (%) (Auto) 72 % (31-73) Lymphocytes (%) (Auto) 17 % (24-48) Monocytes (%) (Auto) 6 % (0-9) Eosinophils (%) (Auto) 5 % (0-3) Basophils (%) (Auto) 1 % (0-3) Neutrophils # (Auto) 5.7 x10^3/uL (1.8-7.7) Lymphocytes # (Auto) 1.4 x10^3/uL (1.0-4.8) Monocytes # (Auto) 0.4 x10^3/uL (0.0-1.1) Eosinophils # (Auto) 0.4 x10^3/uL (0.0-0.7) Basophils # (Auto) 0.0 x10^3/uL (0.0-0.2) Sodium Level 141 mmol/L (136-145) Potassium Level 3.6 mmol/L (3.5-5.1) Chloride Level 107 mmol/L (98-107) Carbon Dioxide Level 29 mmol/L (21-32) Anion Gap 5 (6-14) Blood Urea Nitrogen 15 mg/dL (7-20) Creatinine 0.6 mg/dL (0.6-1.0) Estimated GFR (Cockcroft-Gault) 101.0 Glucose Level 100 mg/dL (70-99) Calcium Level 7.2 mg/dL (8.5-10.1) O2 Saturation 95 % (92-99) Arterial Blood pH 7.45 (7.35-7.45) Arterial Blood pCO2 at Patient Temp 40 mmHg (35-46) Arterial Blood pO2 at Patient Temp 81 mmHg (65-108) Arterial Blood HCO3 27 mmol/L (21-28) Arterial Blood Base Excess 3 mmol/L (-3-3) FiO2 40% ac 20 450 5 Test 05/08/21 11:33 Glucose (Fingerstick) 89 mg/dL (70-99) Microbiology 05/03/21 Blood Culture - Final, Complete NO GROWTH AFTER 5 DAYS Medications Current Medications Propofol 100 ml @ As Directed STK-MED ONCE IV ; Start 05/03/21 at 10:43; Stop 05/03/21 at 10:43; Status DC Norepinephrine Bitartrate 8 mg/ Dextrose 258 ml @ 19.35 mls/ hr 1X ONCE IV Last administered on 05/03/21at 11:20; Start 05/03/21 at 11:15; Stop 05/04/21 at 00:34; Status DC Propofol (Diprivan) 200 mg TITRATE ONCE IV ; Start 05/03/21 at 11:45; Stop at 11:46; Status UNV Propofol 100 ml @ 3 mls/hr CONT PRN IV PER PROTOCOL Last administered on 05/03/21at 10:50; Start 05/03/21 at 11:45; Stop 05/03/21 at 12:49; Status DC Cefepime HCl (Maxipime) 2 gm 1X ONCE IVP Last administered on 05/03/21at 11:45; Start 05/03/21 at 11:45; Stop 05/03/21 at 11:46; Status DC Vancomycin HCl 1.5 gm/Sodium Chloride 500 ml @ 250 mls/hr 1X ONCE IV ; Start 05/03/21 at 11:45; Stop 05/03/21 at 13:44; Status UNV Sodium Chloride 1,000 ml @ 1,000 mls/hr 1X ONCE IV Last administered on 05/03/21at 10:50; Start 05/03/21 at 11:45; Stop 05/03/21 at 12:44; Status DC Sodium Chloride 1,000 ml @ 1,000 mls/hr 1X ONCE IV Last administered on 05/03/21at 11:00; Start 05/03/21 at 11:45; Stop 05/03/21 at 12:44; Status DC Sodium Chloride 1,000 ml @ 250 mls/hr Q4H IV Last administered on 05/04/21at 03:45; Start 05/03/21 at 11:45; Stop 05/04/21 at 11:44; Status DC Vancomycin HCl 2 gm/Sodium Chloride 500 ml @ 250 mls/hr 1X ONCE IV Last administered on 05/03/21at 12:00; Start 05/03/21 at 12:00; Stop 05/03/21 at 13:59; Status DC Potassium Bicarbonate (Potassium Effervescent Tablet) 40 meq 1X ONCE NG Last a dministered on 05/03/21at 15:01; Start 05/03/21 at 12:00; Stop 05/03/21 at 12:01; Status DC Potassium Chloride/Water 100 ml @ 100 mls/hr Q1H IV ; Start 05/03/21 at 12:00; Stop 05/03/21 at 12:04; Status DC Apixaban (Eliquis) 5 mg BID PO ; Start 05/03/21 at 21:00; Stop 05/03/21 at 15:54; Status DC Primidone (Mysoline) 50 mg DAILY PO Last administered on 05/08/21at 07:56; Start 05/04/21 at 09:00 Quetiapine Fumarate (SEROquel) 25 mg BID PO Last administered on 05/07/21at 09:47; Start 05/03/21 at 21:00 Citalopram Hydrobromide (CeleXA) 20 mg DAILY PO Last administered on 05/08/21at 07:56; Start 05/04/21 at 09:00 Pantoprazole Sodium (PROTONIX VIAL for IV PUSH) 40 mg DAILYAC IVP Last administered on 05/08/21at 07:56; Start 05/04/21 at 07:30 Potassium Chloride/Water 100 ml @ 100 mls/hr Q1H IV Last administered on 05/03/21at 13:43; Start 05/03/21 at 12:00; Stop 05/03/21 at 13:59; Status DC Magnesium Sulfate 50 ml @ 25 mls/hr 1X ONCE IV Last administered on 05/03/21at 15:00; Start 05/03/21 at 12:00; Stop 05/03/21 at 13:59; Status DC Ondansetron HCl (Zofran) 4 mg PRN Q6HRS PRN IVP NAUSEA/VOMITING; Start 05/03/21 at 12:00 Calcium Carbonate/ Glycine (Tums) 500 mg PRN Q3HRS PRN PO HEARTBURN / GAS; Start 05/03/21 at 12:00 Info (Icu Electrolyte Protocol) 1 ea DAILY MC Last administered on 05/08/21at 09:00; Start 05/04/21 at 09:00 Sodium Chloride (Normal Saline Flush) 3 ml QSHIFT PRN IV AFTER MEDS AND BLOOD DRAWS; Start 05/03/21 at 12:00 Potassium Chloride/Water 100 ml @ 100 mls/hr Q1H IV Last administered on 05/03/21at 15:57; Start 05/03/21 at 14:00; Stop 05/03/21 at 15:59; Status DC Fentanyl Citrate 30 ml @ 2.5 mls/hr CONT PRN IV SEE PROTOCOL Last administered on 05/08/21at 06:54; Start 05/03/21 at 12:45 Midazolam HCl 100 ml @ 1 mls/hr CONT PRN IV SEE PROTOCOL Last administered on 05/08/21at 07:57; Start 05/03/21 at 12:45 Propofol 100 ml @ 3 mls/hr CONT PRN IV PER PROTOCOL Last administered on 05/06/21at 22:19; Start 05/03/21 at 12:45 Vecuronium [place] (Norcuron Bolus) 6 mg PRN 1X PRN IV VENT INDUCTION; Start 05/03/21 at 12:45; Stop 05/04/21 at 12:44; Status DC Dexmedetomidine HCl 400 mcg/ Sodium Chloride 100 ml @ 7,500 mls/hr CONT PRN IV PER PROTOCOL; Start 05/03/21 at 12:45 Iohexol (Omnipaque 350 Mg/ml) 100 ml 1X ONCE IV Last administered on 05/03/21at 12:58; Start 05/03/21 at 13:00; Stop 05/03/21 at 13:01; Status DC Info (CONTRAST GIVEN -- Rx MONITORING) 1 each PRN DAILY PRN MC SEE COMMENTS; Start 05/03/21 at 13:00; Stop 05/05/21 at 12:59; Status DC Piperacillin Sod/ Tazobactam Sod (Zosyn Per Pharmacy) 1 each PRN DAILY PRN MC SEE COMMENTS; Start 05/03/21 at 15:15; Stop 05/03/21 at 15:07; Status DC Vancomycin HCl (Vanco Per Pharmacy) 1 each PRN DAILY PRN MC SEE COMMENTS Last administered on 05/08/21at 10:06; Start 05/03/21 at 15:15 Cefepime HCl (Maxipime) 1 gm Q8HRS IVP ; Start 05/03/21 at 15:30; Status Cancel Insulin Human Lispro (HumaLOG) 0-7 UNITS TIDWMEALS SQ ; Start 05/03/21 at 17:00; Stop 05/07/21 at 07:52; Status DC Dextrose (Dextrose 50%-Water Syringe) 12.5 gm PRN Q15MIN PRN IV SEE COMMENTS; Start 05/03/21 at 15:15; Stop 05/07/21 at 07:53; Status DC Cefepime HCl (Maxipime) 1 gm Q8HRS IVP Last administered on 05/08/21at 14:07; Start 05/03/21 at 22:00 Methylprednisolone Sodium Succinate (SOLU-Medrol 125MG VIAL) 125 mg 1X ONCE IV Last administered on 05/03/21at 15:56; Start 05/03/21 at 15:30; Stop 05/03/21 at 15:31; Status DC Vancomycin HCl 1 gm/Sodium Chloride 250 ml @ 250 mls/hr Q12H IV Last administered on 05/08/21at 11:37; Start 05/04/21 at 00:00 Vancomycin HCl (Vancomycin Trough Level) 1 each 1X ONCE MC ; Start 05/04/21 at 23:30; Stop 05/04/21 at 23:31; Status DC Potassium Chloride/Water 100 ml @ 100 mls/hr Q1H IV Last administered on 05/04/21at 09:38; Start 05/04/21 at 08:00; Stop 05/04/21 at 09:59; Status DC Calcium Chloride (Calcium Chloride) 1,000 mg STK-MED ONCE .ROUTE ; Start 05/03/21 at 11:00; Stop 05/04/21 at 12:23; Status DC Sodium Bicarbonate (Sodium Bicarb Adult 8.4% Syr) 50 meq STK-MED ONCE .ROUTE ; Start 05/03/21 at 11:00; Stop 05/04/21 at 12:23; Status DC Epinephrine HCl (EPINEPHrine SYRINGE) 3 mg STK-MED ONCE .ROUTE ; Start 05/03/21 at 11:00; Stop 05/04/21 at 12:23; Status DC Potassium Chloride/Water 100 ml @ 100 mls/hr Q1H IV Last administered on 05/05/21at 12:19; Start 05/05/21 at 09:00; Stop 05/05/21 at 12:59; Status DC Potassium Chloride/Water 100 ml @ 100 mls/hr Q1H IV Last administered on 05/06/21at 11:05; Start 05/06/21 at 10:00; Stop 05/06/21 at 11:59; Status DC Insulin Human Lispro (HumaLOG) 0-7 UNITS Q6HRS SQ ; Start 05/07/21 at 12:00 Dextrose (Dextrose 50%-Water Syringe) 12.5 gm PRN Q15MIN PRN IV SEE COMMENTS; Start 05/07/21 at 08:00 Norepinephrine Bitartrate 8 mg/ Dextrose 258 ml @ 21.672 mls/ hr CONT PRN IV PER PROTOCOL Last administered on 05/07/21at 11:40; Start 05/07/21 at 11:30 Vancomycin HCl (Vancomycin Trough Level) 1 each 1X ONCE MC ; Start 05/09/21 at 11:30; Stop 05/09/21 at 11:31 Active Scripts Active Easy Neb Compressor Nebulizer (Nebulizer and Compressor) 1 Each Each Each MC PRN PRN Use with albuterol as needed every 4 hours Albuterol Sulfate Neb Soln (Albuterol Sulfate) 2.5 Mg/3 Ml Vial.neb 1 Vial NEB PRN Q4HRS PRN 30 Days Levofloxacin 750 Mg Tablet 1 Tab PO DAILY 5 Days Reported Seroquel (Quetiapine Fumarate) 25 Mg Tablet 25 Mg PO BID Mysoline (Primidone) 50 Mg Tablet 50 Mg PO DAILY Escitalopram Oxalate 20 Mg Tablet 20 Mg PO DAILY Omeprazole 20 Mg Capsule.dr 20 Mg PO DAILY Eliquis (Apixaban) 5 Mg Tablet 5 Mg PO BID Lasix (Furosemide) 40 Mg Tablet 40 Mg PO DAILY Vitals/I & O Vital Sign - Last 24 Hours 05/07/21 05/07/21 05/07/21 05/07/21 21:00 21:15 22:00 23:00 Pulse 100 74 66 60 Resp 20 20 20 20 B/P (MAP) 116/89 118/54 89/48 92/51 Pulse Ox 95 96 94 96 O2 Delivery Ventilator Ventilator Ventilator Ventilator 05/08/21 05/08/21 05/08/21 05/08/21 00:00 00:00 01:00 02:00 Temp 98.8 98.8 Pulse 65 64 67 Resp 20 20 20 B/P (MAP) 118/57 103/52 177/96 Pulse Ox 95 97 96 97 O2 Delivery Ventilator Ventilator Ventilator Ventilator 05/08/21 05/08/21 05/08/21 05/08/21 03:00 04:00 04:00 05:00 Temp 99.0 99.0 Pulse 64 73 62 Resp 20 20 20 B/P (MAP) 106/49 105/52 90/47 Pulse Ox 95 94 95 95 O2 Delivery Ventilator Ventilator Ventilator Ventilator 05/08/21 05/08/21 05/08/21 05/08/21 06:00 06:54 07:00 07:52 Pulse 56 63 Resp 20 20 20 B/P (MAP) 103/55 86/45 Pulse Ox 95 95 95 97 O2 Delivery Ventilator Ventilator Ventilator Ventilator 05/08/21 05/08/21 05/08/21 05/08/21 07:57 08:00 08:00 09:00 Temp 98.9 98.9 98.9 98.9 Pulse 69 62 Resp 20 20 20 B/P (MAP) 173/92 153/72 Pulse Ox 95 97 96 O2 Delivery Ventilator Mechanical Ventilator Ventilator Ventilator O2 Flow Rate 97.0 05/08/21 05/08/21 05/08/21 05/08/21 10:00 11:00 11:28 12:00 Pulse 68 67 72 Resp 22 20 20 B/P (MAP) 129/82 111/75 128/58 Pulse Ox 95 96 95 95 O2 Delivery Ventilator Ventilator Ventilator Ventilator 05/08/21 05/08/21 05/08/21 05/08/21 12:51 14:00 15:00 15:15 Temp 99.6 99.6 Pulse 78 87 Resp 20 20 B/P (MAP) 144/65 117/69 Pulse Ox 95 96 96 O2 Delivery Ventilator Ventilator Ventilator 05/08/21 05/08/21 05/08/21 16:00 17:00 18:00 Pulse 70 78 94 Resp 20 20 22 B/P (MAP) 115/46 126/56 141/61 Pulse Ox 95 95 96 O2 Delivery Ventilator Ventilator Ventilator Intake and Output 05/07/21 05/07/21 05/08/21 15:00 23:00 07:00 Intake Total 139 ml 986.8 ml 1188 ml Output Total 210 ml 290 ml 215 ml Balance -71 ml 696.8 ml 973 ml Justifications for Admission Other Justification YUDITH RANGEL MD May 08, 2021 20:10
[2021-05-08] MEDS: PROPOFOL 100 ML IV PRN (22:06)
--- NOTE | 2021-05-08 22:56 | NUR ---
Patient has been off sedation all day but has not woken up. Starting at 1999 patient's BP became elevated and has maintained >170 for majority of the time since then. Patient not following commands or making purposeful movements, but does move arms and legs and coughs. Patient started fighting ventilator, HR increased into 120s, BP >200. Low dose Propofol started on patient, patient's HR decreased to 100s, BP lower, and patient compliant with ventilator.
[2021-05-09] VITALS (24 sets, daily range): BP systolic 99–188; BP diastolic 47–87
[2021-05-09] MEDS: METOPROLOL IV PUSH 5 MG/5 ML VIAL. IVP PRN (04:52)
[2021-05-09] MEDS: DEXMEDETOMIDINE 400 MCG in IV NORMAL SALINE 100ML 96 ML IV PRN ×3 (05:03→19:27)
[2021-05-09] MEDS: INSULIN LISPRO 300 UNITS/3 ML VIAL. SQ SCH ×3 (05:52→18:00)
[2021-05-09] MEDS: CEFEPIME HCL IV Push 1 GM VIAL. IVP SCH ×3 (05:53→21:32)
[2021-05-09 07:02] LABS: CALCIUM 7.8 mg/dL (8.5-10.1); CREATININE 0.5 mg/dL (0.6-1.0); GFR 124.6; POTASSIUM 3.4 mmol/L (3.5-5.1)
[2021-05-09] MEDS: ELECTROLYTE (ICU) PROTOCOL. MC SCH (09:00)
[2021-05-09 09:14] LABS: BASE EXCESS ABG 3 mmol/L (-3-3); HCO3 ABG 27 mmol/L (21-28); PCO2 ABG 36 mmHg (35-46); PO2 ABG 96 mmHg (65-108); SAT O2 ABG 97 % (92-99)
[2021-05-09 09:48] LABS: FIO2 ABG 40% AC 20 450 5
--- NOTE | 2021-05-09 10:04 | PDOC ---
PULMONARY PROGRESS NOTES DATE: 05/09/21 TIME: 10:00 Subjective Remains on assist control mode. Down to 40% FiO2. Off sedation. Opens eyes but does not follow any commands. Requiring low-dose Precedex. Vitals Vital Signs Date Time Temp Pulse Resp B/P (MAP) Pulse Ox O2 Delivery O2 Flow Rate FiO2 05/09/21 08:51 97 Ventilator 05/09/21 06:00 83 21 153/72 05/09/21 04:00 100.9 100.9 05/08/21 07:57 97.0 Comments ros unable to obtain intubated sedated no distress nc at rrr no accessory muscle use abd obese no rash Lungs: Other (Decreased breath sounds) Cardiovascular: S1, S2 Extremities: Other (1+) Skin: No Rashes Labs Laboratory Tests Test 05/07/21 12:01 05/07/21 17:41 05/07/21 23:54 05/08/21 05:42 Glucose (Fingerstick) 77 mg/dL (70-99) 91 mg/dL (70-99) 97 mg/dL (70-99) 93 mg/dL (70-99) Test 05/08/21 06:00 05/08/21 08:00 05/08/21 11:33 05/08/21 23:37 White Blood Count 7.9 x10^3/uL (4.0-11.0) Red Blood Count 2.53 x10^6/uL (3.50-5.40) Hemoglobin 7.3 g/dL (12.0-15.5) Hematocrit 22.2 % (36.0-47.0) Mean Corpuscular Volume 88 fL (79-100) Mean Corpuscular Hemoglobin 29 pg (25-35) Mean Corpuscular Hemoglobin Concent 33 g/dL (31-37) Red Cell Distribution Width 14.9 % (11.5-14.5) Platelet Count 265 x10^3/uL (140-400) Neutrophils (%) (Auto) 72 % (31-73) Lymphocytes (%) (Auto) 17 % (24-48) Monocytes (%) (Auto) 6 % (0-9) Eosinophils (%) (Auto) 5 % (0-3) Basophils (%) (Auto) 1 % (0-3) Neutrophils # (Auto) 5.7 x10^3/uL (1.8-7.7) Lymphocytes # (Auto) 1.4 x10^3/uL (1.0-4.8) Monocytes # (Auto) 0.4 x10^3/uL (0.0-1.1) Eosinophils # (Auto) 0.4 x10^3/uL (0.0-0.7) Basophils # (Auto) 0.0 x10^3/uL (0.0-0.2) Sodium Level 141 mmol/L (136-145) Potassium Level 3.6 mmol/L (3.5-5.1) Chloride Level 107 mmol/L (98-107) Carbon Dioxide Level 29 mmol/L (21-32) Anion Gap 5 (6-14) Blood Urea Nitrogen 15 mg/dL (7-20) Creatinine 0.6 mg/dL (0.6-1.0) Estimated GFR (Cockcroft-Gault) 101.0 Glucose Level 100 mg/dL (70-99) Calcium Level 7.2 mg/dL (8.5-10.1) O2 Saturation 95 % (92-99) Arterial Blood pH 7.45 (7.35-7.45) Arterial Blood pCO2 at Patient Temp 40 mmHg (35-46) Arterial Blood pO2 at Patient Temp 81 mmHg (65-108) Arterial Blood HCO3 27 mmol/L (21-28) Arterial Blood Base Excess 3 mmol/L (-3-3) FiO2 40% ac 20 450 5 Glucose (Fingerstick) 89 mg/dL (70-99) 118 mg/dL (70-99) Test 05/09/21 05:51 05/09/21 06:00 05/09/21 08:45 Glucose (Fingerstick) 112 mg/dL (70-99) Sodium Level 139 mmol/L (136-145) Potassium Level 3.4 mmol/L (3.5-5.1) Chloride Level 104 mmol/L (98-107) Carbon Dioxide Level 28 mmol/L (21-32) Anion Gap 7 (6-14) Blood Urea Nitrogen 12 mg/dL (7-20) Creatinine 0.5 mg/dL (0.6-1.0) Estimated GFR (Cockcroft-Gault) 124.6 Glucose Level 116 mg/dL (70-99) Calcium Level 7.8 mg/dL (8.5-10.1) O2 Saturation 97 % (92-99) Arterial Blood pH 7.48 (7.35-7.45) Arterial Blood pCO2 at Patient Temp 36 mmHg (35-46) Arterial Blood pO2 at Patient Temp 96 mmHg (65-108) Arterial Blood HCO3 27 mmol/L (21-28) Arterial Blood Base Excess 3 mmol/L (-3-3) FiO2 40% ac 20 450 5 Laboratory Tests Test 05/08/21 11:33 05/08/21 23:37 05/09/21 05:51 05/09/21 06:00 Glucose (Fingerstick) 89 mg/dL (70-99) 118 mg/dL (70-99) 112 mg/dL (70-99) Sodium Level 139 mmol/L (136-145) Potassium Level 3.4 mmol/L (3.5-5.1) Chloride Level 104 mmol/L (98-107) Carbon Dioxide Level 28 mmol/L (21-32) Anion Gap 7 (6-14) Blood Urea Nitrogen 12 mg/dL (7-20) Creatinine 0.5 mg/dL (0.6-1.0) Estimated GFR (Cockcroft-Gault) 124.6 Glucose Level 116 mg/dL (70-99) Calcium Level 7.8 mg/dL (8.5-10.1) Test 05/09/21 08:45 O2 Saturation 97 % (92-99) Arterial Blood pH 7.48 (7.35-7.45) Arterial Blood pCO2 at Patient Temp 36 mmHg (35-46) Arterial Blood pO2 at Patient Temp 96 mmHg (65-108) Arterial Blood HCO3 27 mmol/L (21-28) Arterial Blood Base Excess 3 mmol/L (-3-3) FiO2 40% ac 20 450 5 Medications Active Scripts Medications Dose Route/Sig Max Daily Dose Days Date Category Dose Instructions Easy Neb Compressor Nebulizer (Nebulizer and Compressor) 1 Each Each Each MC PRN PRN 05/01/21 Rx Use with albuterol as needed every 4 hours Albuterol Sulfate Neb Soln (Albuterol Sulfate) 2.5 Mg/3 Ml Vial.neb 1 Vial NEB PRN Q4HRS PRN 30 05/01/21 Rx Levofloxacin 750 Mg Tablet 1 Tab PO DAILY 5 05/01/21 Rx Seroquel (Quetiapine Fumarate) 25 Mg Tablet 25 Mg PO BID 04/26/21 Reported Mysoline (Primidone) 50 Mg Tablet 50 Mg PO DAILY 04/26/21 Reported Escitalopram Oxalate 20 Mg Tablet 20 Mg PO DAILY 03/26/21 Reported Omeprazole 20 Mg Capsule.dr 20 Mg PO DAILY 03/26/21 Reported Eliquis (Apixaban) 5 Mg Tablet 5 Mg PO BID 03/26/21 Reported Lasix (Furosemide) 40 Mg Tablet 40 Mg PO DAILY 03/26/[address] neck 05/07/2021 No definite tracheal stenosis seen. Chest x-ray reviewed 05/07/2021 Diffuse bilateral lung infiltrates reviewed cxr 05/05 ett ok Severe diffuse pulmonary opacities, decreased compared to prior. Impression . 1. Acute hypoxic respiratory failure secondary to likely hypoxic respiratory arrest leading to cardiac arrest.This is her second intubation in a week, ? tracheal or sub- glottic stenosis contributing to mucous plug/ hypoxic respiratory arrest. 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 Now, she has progressive worsening of the infiltrates, especially in the upper lobes. This could be related to a component of aspiration pneumonia. 2. The patient with underlying history of COVID-19 viral pneumonia in late November and early December with chronic interstitial infiltrates. She required another hospitalization few weeks ago with respiratory failure, but was successfully extubated. 3. Status post tracheostomy followed by decannulation.. 4. Cannot exclude the possibility of subglottic stenosis contributing to respiratory arrest. 5. Underlying obesity. 6. Abnormal CT chest as discussed above. 7. Bleeding around the endotracheal tube. She had hemoptysis before coming to the hospital. Could be contributed by pneumonia as well as use of Eliquis at home. Bleeding has resolved. 8. Anemia Page of Plan . 05/09 1. cont vent support setting reviewed, FiO2, keep saturation 94% and above. ett bleeding improved 2. Continue empiric antibiotics. 3. Follow up chest x-rays reviewed Severe diffuse pulmonary opacities, 4. Continue to hold Eliquis. 5. CT of the neck without any tracheal stenosis. I deflated the cuff today. Patient had no air leak suggesting some upper airway narrowing. 6. SCDs for DVT prophylaxis and hold off Lovenox. No further endotracheal bleeding seen but hemoglobin trending down. 7. PPI for stress ulcer prophylaxis. 8. Discussed with RN. Chart reviewed, imaging studies reviewed. 9. Currently sedation is off. She is not awake and not following commands yet. We will hold off on CPAP trials. 10. I been informed by the family that they would not recommend redo tracheostomy as she was not happy with previous tracheostomy. 11. We will be approaching the family in next few days and making some decisions. 05/08 1. cont vent support setting reviewed, FiO2, keep saturation 94% and above. ett bleeding improved 2. Continue empiric antibiotics. 3. Follow up chest x-rays reviewed Severe diffuse pulmonary opacities, 4. Continue to hold Eliquis. 5. CT of the neck without any subglottic stenosis. 6. SCDs for DVT prophylaxis and hold off Lovenox. No further endotracheal bleeding seen but hemoglobin trending down. 7. PPI for stress ulcer prophylaxis. 8. Discussed with RN. Chart reviewed, imaging studies reviewed. 9. We will wean sedation off. And assess her ability to tolerate CPAP trials 05/07 1. cont vent support setting reviewed, FiO2, keep saturation 94% and above. ett bleeding improved 2. Continue empiric antibiotics. 3. Follow up chest x-rays reviewed Severe diffuse pulmonary opacities, 4. Continue to hold Eliquis. We will ask Cardiology for any cardiac reason for her being on Eliquis. Question history of A. fib. 5. CT of the neck to rule out any subglottic stenosis. 6. SCDs for DVT prophylaxis and hold off Lovenox until endotracheal bleeding has completely resolved. 7. PPI for stress ulcer prophylaxis. 8. Discussed with RN. Chart reviewed, imaging studies reviewed. 05/06 1. cont vent support setting reviewed, FiO2, keep saturation 94% and above. ett bleeding improved minimal bleeding now 2. Continue empiric antibiotics. 3. Follow up chest x-rays reviewed Severe diffuse pulmonary opacities, decreased compared to prior. 4. Continue to hold Eliquis. We will ask Cardiology for any cardiac reason for her being on Eliquis. Question history of A. fib. 5. We may need a CT of the neck to rule out any subglottic stenosis. 6. SCDs for DVT prophylaxis and hold off Lovenox until endotracheal bleeding has completely resolved. 7. PPI for stress ulcer prophylaxis. 8. Discussed with RN. Chart reviewed, imaging studies reviewed. JEFFREY LYONS MD May 09, 2021 10:04
[2021-05-09] MEDS: QUEtiapine 25 MG TABLET. PO SCH ×2 (10:20→21:32)
[2021-05-09] MEDS: PRIMIDONE 50 MG TABLET PO SCH (10:20)
[2021-05-09] MEDS: SCOPOLAMINE 1.5MG PATCH. TD SCH (10:20)
[2021-05-09] MEDS: CITALOPRAM 20 MG TABLET. PO SCH (10:20)
[2021-05-09] MEDS: PANTOPRAZOLE IV PUSH 40 MG VIAL. IVP SCH (10:21)
[2021-05-09] MEDS ORDERED: DEXMEDETOMIDINE 400 MCG in IV NORMAL SALINE 100ML 96 ML IV PRN (11:00)
--- NOTE | 2021-05-09 11:47 | NUR ---
SS following up with discharge planning. SS reviewed pt chart and discussed with pt RN. Pt is currently on the vent at 40%. COVID19 negative. Pt on IV Vancomycin and IV Cefepime. Pt on Precedex. Not ready. SS will continue to follow for discharge planning.
--- NOTE | 2021-05-09 11:55 | PDOC ---
[facility] PROGRESS NOTE Date of Service DOS: DATE: 05/09/21 TIME: 11:54 Chief Complaint Chief Complaint Respiratory failure Probable bacterial pneumonia Recent COVID-19 in November of last year Possible tracheal [place] History of tracheostomy with decannulation Chronic anticoagulation with some hemoptysis Septic shock Lactic acidosis Acute hypoxic respiratory failure secondary to likely bacterial pneumonia versus viral pneumonia, septic shock, lactic acidosis History of Present Illness History of Present Illness 05/09/2021 Patient seen and examined in the ICU Remains on the ventilator AC/20/450/40 +5 of PEEP Chart reviewed Discussed with RN He remains critically ill 05/08/2021 Patient seen and examined in the ICU She remains on the vent AC/20/450 with 40% FiO2 and 5 of PEEP Sedated with fentanyl and Versed On IV Levophed Discussed with RN Chart reviewed She remains very critically ill 05/07/2021 Patient seen and examined in the ICU He remains on the vent AC/20/450/40 percent with 5 of PEEP Sedated with Versed fentanyl and propofol Discussed with RN Chart reviewed She remains very critically ill 05/06/2021 Patient seen and examined in the ICU She remains on the ventilator AC/20/450/50 percent with 5 of PEEP OG at 40 cc an hour Sedated with fentanyl and propofol and Versed Has Simon to bedside drainage SCDs are in place Chart reviewed Discussed with RN She remains critically ill 05/05/2021 Patient seen and examined in the ICU She remains on the ventilator AC/20/450/50 percent with 5 of PEEP Simon bedside drainage SCDs in place OG at 30 cc an hour Sedated with fentanyl propofol and Versed Chart reviewed Discussed with RN She remains critically ill 05/04/2021 Patient seen and examined in the ICU She is currently on the vent AC/20/450/50 +5 of PEEP Chart reviewed Discussed with RN She is sedated with Versed fentanyl Has IV Levophed hanging Vitals/I&O Vitals/I&O: Vital Signs Date Time Temp Pulse Resp B/P (MAP) Pulse Ox O2 Delivery O2 Flow Rate FiO2 05/09/21 08:51 97 Ventilator 05/09/21 06:00 83 21 153/72 05/09/21 04:00 100.9 100.9 05/08/21 07:57 97.0 I & O 05/08/21 05/08/21 05/09/21 15:00 23:00 07:00 Intake Total 100 ml 100 ml 1885 ml Output Total 185 ml 550 ml 685 ml Balance -85 ml -450 ml 1200 ml Physical Exam General: Other (Intubated) Heart: Regular rate Lungs: Other (Decreased breath sounds) Abdomen: Normal bowel sounds Extremities: No clubbing Skin: No rashes Labs Labs: Laboratory Tests Test 05/08/21 23:37 05/09/21 05:51 05/09/21 06:00 05/09/21 08:45 Glucose (Fingerstick) 118 mg/dL (70-99) 112 mg/dL (70-99) Sodium Level 139 mmol/L (136-145) Potassium Level 3.4 mmol/L (3.5-5.1) Chloride Level 104 mmol/L (98-107) Carbon Dioxide Level 28 mmol/L (21-32) Anion Gap 7 (6-14) Blood Urea Nitrogen 12 mg/dL (7-20) Creatinine 0.5 mg/dL (0.6-1.0) Estimated GFR (Cockcroft-Gault) 124.6 Glucose Level 116 mg/dL (70-99) Calcium Level 7.8 mg/dL (8.5-10.1) O2 Saturation 97 % (92-99) Arterial Blood pH 7.48 (7.35-7.45) Arterial Blood pCO2 at Patient Temp 36 mmHg (35-46) Arterial Blood pO2 at Patient Temp 96 mmHg (65-108) Arterial Blood HCO3 27 mmol/L (21-28) Arterial Blood Base Excess 3 mmol/L (-3-3) FiO2 40% ac 20 450 5 Assessment and Plan Assessmemt and Plan Problems Medical Problems: (1) Cardiac arrest Status: Acute (2) Hypokalemia Status: Acute (3) Lactic acidosis Status: Acute (4) Pneumonia Status: Acute (5) Respiratory failure, acute Status: Acute (6) Septic shock Status: Acute Respiratory failure Probable bacterial pneumonia Recent COVID-19 in November of last year Possible tracheal [place] History of tracheostomy with decannulation Chronic anticoagulation with some hemoptysis Septic shock Lactic acidosis Acute hypoxic respiratory failure secondary to likely bacterial pneumonia versus viral pneumonia, septic shock, lactic acidosis Plan ICU monitoring Vent weaning IV antibiotics Continue sedation with Versed and fentanyl Maintenance IV Trying to wean off Levophed Supportive residential meds if possible Trend labs Appreciate subspecialist input DVT prophylaxis Full code Prognosis very guarded CC time 31 minutes Comment Review of Relevant I have reviewed the following items davina (where applicable) has been applied. Medications: Current Medications Medications (Trade) Dose Ordered Sig/Qing Route PRN Reason Start Time Stop Time Status Last Admin Dose Admin Metoprolol Tartrate (Lopressor Vial) 5 mg PRN Q6HRS PRN IVP HYPERTENSION 05/09/21 03:45 05/09/21 04:52 Scopolamine (Transderm-Scop) 1 patch Q3DAYS TD 05/09/21 10:00 05/09/21 10:20 Justifications for Admission Other Justification LUCERO PERAZA III DO May 09, 2021 11:55
[2021-05-09 12:32] LABS: VANC TR 10.2 mcg/mL (10.0-20.0)
[2021-05-09] MEDS: VANCOMYCIN PER PHARMACY MC PRN ×2 (12:45→12:47)
--- NOTE | 2021-05-09 12:48 | NUR ---
Pharmacy Vancomycin Dosing Note S: Consulted to monitor and dose vancomycin started 05/03/21. O: TENZIN HENLEY is a 61 year old F with Sepsis, Pneumonia, . Other Antibiotics: Cefepime 1g IV q8hrs LABS: Last BUN: 15 Last Creatinine: 0.6 Creatinine Clearance: > 100 mL/min Last WBC: 7.9 Last Procalcitonin: 0.19 Tmax (past 24 hours): 99.6 Microbiology: BLOOD CX (05/03): NGTD I/O: 2314/715 Drug Levels: Last Trough level: 10.2 on 05/09/21 at 1150 Last dose given 05/08/21 at 0026 Vancomycin Dosing: Dosing Weight: Actual Target Trough: 15-20 A: Based on: repeat level P: 1. Continue Vancomycin 1000 mg IV q12h 2. Follow up Trough level if needed 3. Pharmacy will continue to monitor, follow and adjust therapy as needed. Anny Dowd RPH, 05/09/21 [id number]
[2021-05-09] MEDS: VANCOMYCIN 1 GM in IV NORMAL SALINE 250ML 250 ML IV SCH (13:57)
[2021-05-09] MEDS ORDERED: POTASSIUM BICARB 20 MEQ EFFERVESCENT TABLET. PEG ONE (14:00)
[2021-05-10] VITALS (24 sets, daily range): BP systolic 90–155; BP diastolic 43–80
[2021-05-10] MEDS: VANCOMYCIN 1 GM in IV NORMAL SALINE 250ML 250 ML IV SCH (00:06)
[2021-05-10] MEDS: DEXMEDETOMIDINE 400 MCG in IV NORMAL SALINE 100ML 96 ML IV PRN ×5 (02:19→21:13)
[2021-05-10] MEDS: CEFEPIME HCL IV Push 1 GM VIAL. IVP SCH ×3 (05:45→22:21)
[2021-05-10] MEDS: INSULIN LISPRO 300 UNITS/3 ML VIAL. SQ SCH ×2 (05:45)
[2021-05-10] MEDS: PANTOPRAZOLE IV PUSH 40 MG VIAL. IVP SCH (07:37)
[2021-05-10] MEDS: PRIMIDONE 50 MG TABLET PO SCH (07:37)
[2021-05-10] MEDS: CITALOPRAM 20 MG TABLET. PO SCH (07:37)
[2021-05-10] MEDS: QUEtiapine 25 MG TABLET. PO SCH ×2 (07:37→21:12)
[2021-05-10 08:21] LABS: BASE EXCESS ABG 1 mmol/L (-3-3); HCO3 ABG 25 mmol/L (21-28); PCO2 ABG 35 mmHg (35-46); PO2 ABG 78 mmHg (65-108); SAT O2 ABG 95 % (92-99)
[2021-05-10 08:23] LABS: FIO2 ABG 40
[2021-05-10 08:38] LABS: CALCIUM 7.7 mg/dL (8.5-10.1); CREATININE 0.5 mg/dL (0.6-1.0); GFR 124.6; MAGNESIUM 2.2 mg/dL (1.8-2.4); POTASSIUM 3.4 mmol/L (3.5-5.1)
[2021-05-10] MEDS: ELECTROLYTE (ICU) PROTOCOL. MC SCH (09:00)
[2021-05-10] MEDS ORDERED: POTASSIUM BICARB 20 MEQ EFFERVESCENT TABLET. PEG ONE (10:00)
--- NOTE | 2021-05-10 10:16 | PDOC ---
PULMONARY PROGRESS NOTES DATE: 05/10/21 TIME: 10:14 Subjective Remains on assist control mode. Down to 40% FiO2. Off sedation. Opens eyes but does not follow any commands. Requiring low-dose Precedex. Vitals Vital Signs Date Time Temp Pulse Resp B/P (MAP) Pulse Ox O2 Delivery O2 Flow Rate FiO2 05/10/21 10:00 88 20 127/63 95 Ventilator 05/10/21 08:00 99.9 99.9 Comments ros unable to obtain intubated sedated no distress nc at rrr no accessory muscle use abd obese no rash Lungs: Other (Decreased breath sounds) Cardiovascular: S1, S2 Extremities: Other (1+) Skin: No Rashes Labs Laboratory Tests Test 05/08/21 11:33 05/08/21 23:37 05/09/21 05:51 05/09/21 06:00 Glucose (Fingerstick) 89 mg/dL (70-99) 118 mg/dL (70-99) 112 mg/dL (70-99) Sodium Level 139 mmol/L (136-145) Potassium Level 3.4 mmol/L (3.5-5.1) Chloride Level 104 mmol/L (98-107) Carbon Dioxide Level 28 mmol/L (21-32) Anion Gap 7 (6-14) Blood Urea Nitrogen 12 mg/dL (7-20) Creatinine 0.5 mg/dL (0.6-1.0) Estimated GFR (Cockcroft-Gault) 124.6 Glucose Level 116 mg/dL (70-99) Calcium Level 7.8 mg/dL (8.5-10.1) Test 05/09/21 08:45 05/09/21 11:50 05/09/21 18:52 05/10/21 00:04 O2 Saturation 97 % (92-99) Arterial Blood pH 7.48 (7.35-7.45) Arterial Blood pCO2 at Patient Temp 36 mmHg (35-46) Arterial Blood pO2 at Patient Temp 96 mmHg (65-108) Arterial Blood HCO3 27 mmol/L (21-28) Arterial Blood Base Excess 3 mmol/L (-3-3) FiO2 40% ac 20 450 5 Vancomycin Level Trough 10.2 mcg/mL (10.0-20.0) Vancomycin Last Dose Date 05/09/21 Vancomycin Last Dose Time 0001 Glucose (Fingerstick) 129 mg/dL (70-99) 132 mg/dL (70-99) Test 05/10/21 05:43 05/10/21 07:06 05/10/21 08:10 Glucose (Fingerstick) 127 mg/dL (70-99) Sodium Level 140 mmol/L (136-145) Potassium Level 3.4 mmol/L (3.5-5.1) Chloride Level 104 mmol/L (98-107) Carbon Dioxide Level 28 mmol/L (21-32) Anion Gap 8 (6-14) Blood Urea Nitrogen 14 mg/dL (7-20) Creatinine 0.5 mg/dL (0.6-1.0) Estimated GFR (Cockcroft-Gault) 124.6 Glucose Level 147 mg/dL (70-99) Calcium Level 7.7 mg/dL (8.5-10.1) Magnesium Level 2.2 mg/dL (1.8-2.4) O2 Saturation 95 % (92-99) Arterial Blood pH 7.47 (7.35-7.45) Arterial Blood pCO2 at Patient Temp 35 mmHg (35-46) Arterial Blood pO2 at Patient Temp 78 mmHg (65-108) Arterial Blood HCO3 25 mmol/L (21-28) Arterial Blood Base Excess 1 mmol/L (-3-3) FiO2 40 Laboratory Tests Test 05/09/21 11:50 05/09/21 18:52 05/10/21 00:04 05/10/21 05:43 Vancomycin Level Trough 10.2 mcg/mL (10.0-20.0) Vancomycin Last Dose Date 05/09/21 Vancomycin Last Dose Time 0001 Glucose (Fingerstick) 129 mg/dL (70-99) 132 mg/dL (70-99) 127 mg/dL (70-99) Test 05/10/21 07:06 05/10/21 08:10 Sodium Level 140 mmol/L (136-145) Potassium Level 3.4 mmol/L (3.5-5.1) Chloride Level 104 mmol/L (98-107) Carbon Dioxide Level 28 mmol/L (21-32) Anion Gap 8 (6-14) Blood Urea Nitrogen 14 mg/dL (7-20) Creatinine 0.5 mg/dL (0.6-1.0) Estimated GFR (Cockcroft-Gault) 124.6 Glucose Level 147 mg/dL (70-99) Calcium Level 7.7 mg/dL (8.5-10.1) Magnesium Level 2.2 mg/dL (1.8-2.4) O2 Saturation 95 % (92-99) Arterial Blood pH 7.47 (7.35-7.45) Arterial Blood pCO2 at Patient Temp 35 mmHg (35-46) Arterial Blood pO2 at Patient Temp 78 mmHg (65-108) Arterial Blood HCO3 25 mmol/L (21-28) Arterial Blood Base Excess 1 mmol/L (-3-3) FiO2 40 Medications Active Scripts Medications Dose Route/Sig Max Daily Dose Days Date Category Dose Instructions Easy Neb Compressor Nebulizer (Nebulizer and Compressor) 1 Each Each Each MC PRN PRN 05/01/21 Rx Use with albuterol as needed every 4 hours Albuterol Sulfate Neb Soln (Albuterol Sulfate) 2.5 Mg/3 Ml Vial.neb 1 Vial NEB PRN Q4HRS PRN 30 05/01/21 Rx Levofloxacin 750 Mg Tablet 1 Tab PO DAILY 5 05/01/21 Rx Seroquel (Quetiapine Fumarate) 25 Mg Tablet 25 Mg PO BID 04/26/21 Reported Mysoline (Primidone) 50 Mg Tablet 50 Mg PO DAILY 04/26/21 Reported Escitalopram Oxalate 20 Mg Tablet 20 Mg PO DAILY 03/26/21 Reported Omeprazole 20 Mg Capsule.dr 20 Mg PO DAILY 03/26/21 Reported Eliquis (Apixaban) 5 Mg Tablet 5 Mg PO BID 03/26/21 Reported Lasix (Furosemide) 40 Mg Tablet 40 Mg PO DAILY 03/26/[address] neck 05/07/2021 No definite tracheal stenosis seen. Chest x-ray reviewed 05/07/2021 Diffuse bilateral lung infiltrates reviewed cxr 05/05 ett ok Severe diffuse pulmonary opacities, decreased compared to prior. Impression . 1. Acute hypoxic respiratory failure secondary to likely hypoxic respiratory arrest leading to cardiac arrest.This is her second intubation in a week, ? tracheal or sub- glottic stenosis contributing to mucous plug/ hypoxic respiratory arrest. 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 Now, she has progressive worsening of the infiltrates, especially in the upper lobes. This could be related to a component of aspiration pneumonia. 2. The patient with underlying history of COVID-19 viral pneumonia in late November and early December with chronic interstitial infiltrates. She required another hospitalization few weeks ago with respiratory failure, but was successfully extubated. 3. Status post tracheostomy followed by decannulation.. 4. Cannot exclude the possibility of subglottic stenosis contributing to respiratory arrest. 5. Underlying obesity. 6. Abnormal CT chest as discussed above. 7. Bleeding around the endotracheal tube. She had hemoptysis before coming to the hospital. Could be contributed by pneumonia as well as use of Eliquis at home. Bleeding has resolved. 8. Anemia Page of Plan . 05/10 1. cont vent support setting reviewed, FiO2, keep saturation 94% and above. ett bleeding improved 2. Continue empiric antibiotics. 3. Follow up chest x-rays reviewed Severe diffuse pulmonary opacities, 4. Continue to hold Eliquis. 5. CT of the neck without any tracheal stenosis. I deflated the cuff again today. Patient had no air leak suggesting some upper airway narrowing. 6. SCDs for DVT prophylaxis and hold off Lovenox. No further endotracheal bleeding seen but hemoglobin trending down. 7. PPI for stress ulcer prophylaxis. 8. Discussed with RN. Chart reviewed, imaging studies reviewed. 9. Currently sedation is off. She is not awake and not following commands yet. We will hold off on CPAP trials. 10. I had a long discussion with patient's son at the bedside. I did explain to him that her 2 respiratory arrest recently are probably caused by inability to clear mucus. She probably may have upper airway narrowing/subglottic stenosis. The family is going to make a decision about which direction they want to go. I did explain to them that if she does not do well she would benefit from tracheostomy. Family will also let me know if they would rather prefer not to do tracheostomy. In that case I would recommend that we should not reintubate her in case of another respiratory arrest Discussed with RN and RT. Total critical care time 30-minute 05/09 1. cont vent support setting reviewed, FiO2, keep saturation 94% and above. ett bleeding improved 2. Continue empiric antibiotics. 3. Follow up chest x-rays reviewed Severe diffuse pulmonary opacities, 4. Continue to hold Eliquis. 5. CT of the neck without any tracheal stenosis. I deflated the cuff today. Patient had no air leak suggesting some upper airway narrowing. 6. SCDs for DVT prophylaxis and hold off Lovenox. No further endotracheal bleeding seen but hemoglobin trending down. 7. PPI for stress ulcer prophylaxis. 8. Discussed with RN. Chart reviewed, imaging studies reviewed. 9. Currently sedation is off. She is not awake and not following commands yet. We will hold off on CPAP trials. 10. I been informed by the family that they would not recommend redo tracheostomy as she was not happy with previous tracheostomy. 11. We will be approaching the family in next few days and making some decisions. 05/08 1. cont vent support setting reviewed, FiO2, keep saturation 94% and above. ett bleeding improved 2. Continue empiric antibiotics. 3. Follow up chest x-rays reviewed Severe diffuse pulmonary opacities, 4. Continue to hold Eliquis. 5. CT of the neck without any subglottic stenosis. 6. SCDs for DVT prophylaxis and hold off Lovenox. No further endotracheal bleeding seen but hemoglobin trending down. 7. PPI for stress ulcer prophylaxis. 8. Discussed with RN. Chart reviewed, imaging studies reviewed. 9. We will wean sedation off. And assess her ability to tolerate CPAP trials 05/07 1. cont vent support setting reviewed, FiO2, keep saturation 94% and above. ett bleeding improved 2. Continue empiric antibiotics. 3. Follow up chest x-rays reviewed Severe diffuse pulmonary opacities, 4. Continue to hold Eliquis. We will ask Cardiology for any cardiac reason for her being on Eliquis. Question history of A. fib. 5. CT of the neck to rule out any subglottic stenosis. 6. SCDs for DVT prophylaxis and hold off Lovenox until endotracheal bleeding has completely resolved. 7. PPI for stress ulcer prophylaxis. 8. Discussed with RN. Chart reviewed, imaging studies reviewed. 05/06 1. cont vent support setting reviewed, FiO2, keep saturation 94% and above. ett bleeding improved minimal bleeding now 2. Continue empiric antibiotics. 3. Follow up chest x-rays reviewed Severe diffuse pulmonary opacities, decreased compared to prior. 4. Continue to hold Eliquis. We will ask Cardiology for any cardiac reason for her being on Eliquis. Question history of A. fib. 5. We may need a CT of the neck to rule out any subglottic stenosis. 6. SCDs for DVT prophylaxis and hold off Lovenox until endotracheal bleeding has completely resolved. 7. PPI for stress ulcer prophylaxis. 8. Discussed with RN. Chart reviewed, imaging studies reviewed. JEFFREY LYONS MD May 10, 2021 10:16
[2021-05-10] MEDS: VANCOMYCIN PER PHARMACY MC PRN ×3 (10:46→15:57)
[2021-05-10] MEDS: VANCOMYCIN 1.25 GM in IV NORMAL SALINE 250ML 250 ML IV SCH ×2 (11:37→23:39)
--- NOTE | 2021-05-10 12:20 | PDOC ---
[facility] PROGRESS NOTE Date of Service DOS: DATE: 05/10/21 TIME: 12:18 Chief Complaint Chief Complaint Respiratory failure Probable bacterial pneumonia Recent COVID-19 in November of last year Possible tracheal [place] History of tracheostomy with decannulation Chronic anticoagulation with some hemoptysis Septic shock Lactic acidosis Acute hypoxic respiratory failure secondary to likely bacterial pneumonia versus viral pneumonia, septic shock, lactic acidosis History of Present Illness History of Present Illness 05/10/2021 Patient seen and examined in the ICU She remains on the vent AC/20/450/40 percent with 5 PEEP Sedated with Dex Mitt on the right hand left hand not moving much per RN SCDs in place Simon to bedside drainage Chart reviewed Discussed with RN She remains extremely critically ill 05/09/2021 Patient seen and examined in the ICU Remains on the ventilator AC/20/450/40 +5 of PEEP Chart reviewed Discussed with RN He remains critically ill 05/08/2021 Patient seen and examined in the ICU She remains on the vent AC/20/450 with 40% FiO2 and 5 of PEEP Sedated with fentanyl and Versed On IV Levophed Discussed with RN Chart reviewed She remains very critically ill 05/07/2021 Patient seen and examined in the ICU He remains on the vent AC/20/450/40 percent with 5 of PEEP Sedated with Versed fentanyl and propofol Discussed with RN Chart reviewed She remains very critically ill 05/06/2021 Patient seen and examined in the ICU She remains on the ventilator AC/20/450/50 percent with 5 of PEEP OG at 40 cc an hour Sedated with fentanyl and propofol and Versed Has Simon to bedside drainage SCDs are in place Chart reviewed Discussed with RN She remains critically ill 05/05/2021 Patient seen and examined in the ICU She remains on the ventilator AC/20/450/50 percent with 5 of PEEP Simon bedside drainage SCDs in place OG at 30 cc an hour Sedated with fentanyl propofol and Versed Chart reviewed Discussed with RN She remains critically ill 05/04/2021 Patient seen and examined in the ICU She is currently on the vent AC/20/450/50 +5 of PEEP Chart reviewed Discussed with RN She is sedated with Versed fentanyl Has IV Levophed hanging Vitals/I&O Vitals/I&O: Vital Signs Date Time Temp Pulse Resp B/P (MAP) Pulse Ox O2 Delivery O2 Flow Rate FiO2 05/10/21 12:00 98.9 78 20 123/59 95 Ventilator 98.9 I & O 05/09/21 05/09/21 05/10/21 15:00 23:00 07:00 Intake Total 100 ml 1173 ml 820 ml Output Total 930 ml 325 ml Balance 100 ml 243 ml 495 ml Physical Exam General: Other (Intubated) Heart: Regular rate Lungs: Other (Decreased breath sounds) Abdomen: Normal bowel sounds Extremities: No clubbing Skin: No rashes Labs Labs: Laboratory Tests Test 05/09/21 18:52 05/10/21 00:04 05/10/21 05:43 05/10/21 07:06 Glucose (Fingerstick) 129 mg/dL (70-99) 132 mg/dL (70-99) 127 mg/dL (70-99) Sodium Level 140 mmol/L (136-145) Potassium Level 3.4 mmol/L (3.5-5.1) Chloride Level 104 mmol/L (98-107) Carbon Dioxide Level 28 mmol/L (21-32) Anion Gap 8 (6-14) Blood Urea Nitrogen 14 mg/dL (7-20) Creatinine 0.5 mg/dL (0.6-1.0) Estimated GFR (Cockcroft-Gault) 124.6 Glucose Level 147 mg/dL (70-99) Calcium Level 7.7 mg/dL (8.5-10.1) Magnesium Level 2.2 mg/dL (1.8-2.4) Test 05/10/21 08:10 O2 Saturation 95 % (92-99) Arterial Blood pH 7.47 (7.35-7.45) Arterial Blood pCO2 at Patient Temp 35 mmHg (35-46) Arterial Blood pO2 at Patient Temp 78 mmHg (65-108) Arterial Blood HCO3 25 mmol/L (21-28) Arterial Blood Base Excess 1 mmol/L (-3-3) FiO2 40 Assessment and Plan Assessmemt and Plan Problems Medical Problems: (1) Cardiac arrest Status: Acute (2) Hypokalemia Status: Acute (3) Lactic acidosis Status: Acute (4) Pneumonia Status: Acute (5) Respiratory failure, acute Status: Acute (6) Septic shock Status: Acute Respiratory failure Probable bacterial pneumonia Recent COVID-19 in November of last year Possible tracheal [place] History of tracheostomy with decannulation Chronic anticoagulation with some hemoptysis Septic shock Lactic acidosis Acute hypoxic respiratory failure secondary to likely bacterial pneumonia versus viral pneumonia, septic shock, lactic acidosis Plan ICU monitoring Vent weaning IV antibiotics Continue sedation with Versed and fentanyl Maintenance IV Trying to wean off Levophed Supportive care Mitt for patient safety Home meds if possible Trend labs Appreciate subspecialist input DVT prophylaxis Full code Prognosis very guarded CC time 32 minutes Comment Review of Relevant I have reviewed the following items davina (where applicable) has been applied. Medications: Current Medications Medications (Trade) Dose Ordered Sig/Qing Route PRN Reason Start Time Stop Time Status Last Admin Dose Admin Potassium Bicarbonate (Potassium Effervescent Tablet) 20 meq 1X ONCE PEG 05/09/21 14:00 05/09/21 14:01 DC 05/09/21 13:56 Potassium Bicarbonate (Potassium Effervescent Tablet) 40 meq 1X ONCE PEG 05/10/21 10:00 05/10/21 10:01 DC 05/10/21 10:23 Vancomycin HCl 1.25 gm/Sodium Chloride 250 ml @ 167 mls/hr Q12H IV 05/10/21 12:00 05/10/21 11:37 Justifications for Admission Other Justification LUCERO PERAZA III DO May 10, 2021 12:20
--- NOTE | 2021-05-10 15:34 | NUR ---
SS following up with discharge planning. SS reviewed pt chart and discussed with pt RN. Pt is currently on the vent at 40%. COVID19 negative. Pt on IV Vancomycin and IV Cefepime. Pt on Precedex. Not ready. Physicians discussing goals of care with pt's family. SS will continue to follow for discharge planning.
[2021-05-11] VITALS (24 sets, daily range): BP systolic 87–176; BP diastolic 45–105
[2021-05-11] MEDS: CEFEPIME HCL IV Push 1 GM VIAL. IVP SCH ×3 (07:00→21:22)
[2021-05-11] MEDS: PANTOPRAZOLE IV PUSH 40 MG VIAL. IVP SCH (07:30)
[2021-05-11 07:50] LABS: CALCIUM 7.8 mg/dL (8.5-10.1); CREATININE 0.6 mg/dL (0.6-1.0); POTASSIUM 3.3 mmol/L (3.5-5.1)
[2021-05-11] MEDS: CITALOPRAM 20 MG TABLET. PO SCH (08:15)
[2021-05-11] MEDS: QUEtiapine 25 MG TABLET. PO SCH ×2 (08:15→20:17)
[2021-05-11] MEDS: PRIMIDONE 50 MG TABLET PO SCH (08:15)
[2021-05-11] MEDS: ELECTROLYTE (ICU) PROTOCOL. MC SCH (08:20)
[2021-05-11] MEDS ORDERED: POTASSIUM BICARB 20 MEQ EFFERVESCENT TABLET. PO ONE (08:30)
[2021-05-11 08:49] LABS: BASE EXCESS ABG 2 mmol/L (-3-3); HCO3 ABG 26 mmol/L (21-28); PCO2 ABG 39 mmHg (35-46); PO2 ABG 87 mmHg (65-108); SAT O2 ABG 96 % (92-99)
[2021-05-11] MEDS: VANCOMYCIN PER PHARMACY MC PRN (09:00)
--- NOTE | 2021-05-11 10:01 | PDOC ---
PULMONARY PROGRESS NOTES DATE: 05/11/21 TIME: 09:58 Subjective Remains on assist control mode. Down to 40% FiO2. Off sedation. Opens eyes. Very weak and follow minimal commands. Requiring low-dose Precedex. Vitals Vital Signs Date Time Temp Pulse Resp B/P (MAP) Pulse Ox O2 Delivery O2 Flow Rate FiO2 05/11/21 09:00 72 20 87/45 97 Ventilator 05/11/21 08:00 99.0 99.0 Comments ros unable to obtain intubated sedated no distress nc at rrr no accessory muscle use abd obese no rash Lungs: Other (Decreased breath sounds) Cardiovascular: S1, S2 Extremities: Other (1+) Skin: No Rashes Labs Laboratory Tests Test 05/09/21 11:50 05/09/21 18:52 05/10/21 00:04 05/10/21 05:43 Vancomycin Level Trough 10.2 mcg/mL (10.0-20.0) Vancomycin Last Dose Date 05/09/21 Vancomycin Last Dose Time 0001 Glucose (Fingerstick) 129 mg/dL (70-99) 132 mg/dL (70-99) 127 mg/dL (70-99) Test 05/10/21 07:06 05/10/21 08:10 05/11/21 06:26 Sodium Level 140 mmol/L (136-145) 141 mmol/L (136-145) Potassium Level 3.4 mmol/L (3.5-5.1) 3.3 mmol/L (3.5-5.1) Chloride Level 104 mmol/L (98-107) 106 mmol/L (98-107) Carbon Dioxide Level 28 mmol/L (21-32) 29 mmol/L (21-32) Anion Gap 8 (6-14) 6 (6-14) Blood Urea Nitrogen 14 mg/dL (7-20) 15 mg/dL (7-20) Creatinine 0.5 mg/dL (0.6-1.0) 0.6 mg/dL (0.6-1.0) Estimated GFR (Cockcroft-Gault) 124.6 101.0 Glucose Level 147 mg/dL (70-99) 151 mg/dL (70-99) Calcium Level 7.7 mg/dL (8.5-10.1) 7.8 mg/dL (8.5-10.1) Magnesium Level 2.2 mg/dL (1.8-2.4) O2 Saturation 95 % (92-99) Arterial Blood pH 7.47 (7.35-7.45) Arterial Blood pCO2 at Patient Temp 35 mmHg (35-46) Arterial Blood pO2 at Patient Temp 78 mmHg (65-108) Arterial Blood HCO3 25 mmol/L (21-28) Arterial Blood Base Excess 1 mmol/L (-3-3) FiO2 40 Laboratory Tests Test 05/11/21 06:26 Sodium Level 141 mmol/L (136-145) Potassium Level 3.3 mmol/L (3.5-5.1) Chloride Level 106 mmol/L (98-107) Carbon Dioxide Level 29 mmol/L (21-32) Anion Gap 6 (6-14) Blood Urea Nitrogen 15 mg/dL (7-20) Creatinine 0.6 mg/dL (0.6-1.0) Estimated GFR (Cockcroft-Gault) 101.0 Glucose Level 151 mg/dL (70-99) Calcium Level 7.8 mg/dL (8.5-10.1) Medications Active Scripts Medications Dose Route/Sig Max Daily Dose Days Date Category Dose Instructions Easy Neb Compressor Nebulizer (Nebulizer and Compressor) 1 Each Each Each MC PRN PRN 05/01/21 Rx Use with albuterol as needed every 4 hours Albuterol Sulfate Neb Soln (Albuterol Sulfate) 2.5 Mg/3 Ml Vial.neb 1 Vial NEB PRN Q4HRS PRN 30 05/01/21 Rx Levofloxacin 750 Mg Tablet 1 Tab PO DAILY 5 05/01/21 Rx Seroquel (Quetiapine Fumarate) 25 Mg Tablet 25 Mg PO BID 04/26/21 Reported Mysoline (Primidone) 50 Mg Tablet 50 Mg PO DAILY 04/26/21 Reported Escitalopram Oxalate 20 Mg Tablet 20 Mg PO DAILY 03/26/21 Reported Omeprazole 20 Mg Capsule.dr 20 Mg PO DAILY 03/26/21 Reported Eliquis (Apixaban) 5 Mg Tablet 5 Mg PO BID 03/26/21 Reported Lasix (Furosemide) 40 Mg Tablet 40 Mg PO DAILY 03/26/[address] neck 05/07/2021 No definite tracheal stenosis seen. Chest x-ray reviewed 05/07/2021 Diffuse bilateral lung infiltrates reviewed cxr 05/05 ett ok Severe diffuse pulmonary opacities, decreased compared to prior. Impression . 1. Acute hypoxic respiratory failure secondary to likely hypoxic respiratory arrest leading to cardiac arrest.This is her second intubation in a week, ? tracheal or sub- glottic stenosis contributing to mucous plug/ hypoxic respiratory arrest. 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 Now, she has progressive worsening of the infiltrates, especially in the upper lobes. This could be related to a component of aspiration pneumonia. 2. The patient with underlying history of COVID-19 viral pneumonia in late November and early December with chronic interstitial infiltrates. She required another hospitalization few weeks ago with respiratory failure, but was successfully extubated. 3. Status post tracheostomy followed by decannulation.. 4. Cannot exclude the possibility of subglottic stenosis contributing to respiratory arrest. 5. Underlying obesity. 6. Abnormal CT chest as discussed above. 7. Bleeding around the endotracheal tube. She had hemoptysis before coming to the hospital. Could be contributed by pneumonia as well as use of Eliquis at home. Bleeding has resolved. 8. Anemia 9. Left upper extremity weakness. Cannot exclude ischemic CVA Page of Plan . 05/11 1. cont vent support setting reviewed, FiO2, keep saturation 94% and above. ett bleeding improved 2. Continue empiric antibiotics. 3. Follow up chest x-rays reviewed Severe diffuse pulmonary opacities, 4. Continue to hold Eliquis. Follow-up hemoglobin today. 5. CT of the neck without any tracheal stenosis. I deflated the cuff again today. Patient had some air leak suggesting mild improvement upper airway narr owing. 6. SCDs for DVT prophylaxis and hold off Lovenox. No further endotracheal bleeding seen but hemoglobin trending down. 7. PPI for stress ulcer prophylaxis. 8. Discussed with RN. Chart reviewed, imaging studies reviewed. 9. Currently sedation is off. Minimally awake but very weak. We will hold off on CPAP trials. 10. I had a long discussion with patient's son at the bedside again today. I did explain to him that her 2 respiratory arrest recently are probably caused by inability to clear mucus. She probably may have upper airway narrowing/subglottic stenosis. The family is going to make a decision about which direction they want to go. I did explain to them that if she does not do well she would benefit from tracheostomy. Family will also let me know if they would rather prefer not to do tracheostomy. In that case I would recommend that we should not reintubate her in case of another respiratory arrest. She is weak in left upper extremity. We may need CT head as well Discussed with RN and RT. Total critical care time 30-minute 05/10 1. cont vent support setting reviewed, FiO2, keep saturation 94% and above. ett bleeding improved 2. Continue empiric antibiotics. 3. Follow up chest x-rays reviewed Severe diffuse pulmonary opacities, 4. Continue to hold Eliquis. 5. CT of the neck without any tracheal stenosis. I deflated the cuff again today. Patient had no air leak suggesting some upper airway narrowing. 6. SCDs for DVT prophylaxis and hold off Lovenox. No further endotracheal bleeding seen but hemoglobin trending down. 7. PPI for stress ulcer prophylaxis. 8. Discussed with RN. Chart reviewed, imaging studies reviewed. 9. Currently sedation is off. She is not awake and not following commands yet. We will hold off on CPAP trials. 10. I had a long discussion with patient's son at the bedside. I did explain to him that her 2 respiratory arrest recently are probably caused by inability to clear mucus. She probably may have upper airway narrowing/subglottic stenosis. The family is going to make a decision about which direction they want to go. I did explain to them that if she does not do well she would benefit from tracheostomy. Family will also let me know if they would rather prefer not to do tracheostomy. In that case I would recommend that we should not reintubate her in case of another respiratory arrest Discussed with RN and RT. Total critical care time 30-minute 05/09 1. cont vent support setting reviewed, FiO2, keep saturation 94% and above. ett bleeding improved 2. Continue empiric antibiotics. 3. Follow up chest x-rays reviewed Severe diffuse pulmonary opacities, 4. Continue to hold Eliquis. 5. CT of the neck without any tracheal stenosis. I deflated the cuff today. Patient had no air leak suggesting some upper airway narrowing. 6. SCDs for DVT prophylaxis and hold off Lovenox. No further endotracheal bleeding seen but hemoglobin trending down. 7. PPI for stress ulcer prophylaxis. 8. Discussed with RN. Chart reviewed, imaging studies reviewed. 9. Currently sedation is off. She is not awake and not following commands yet. We will hold off on CPAP trials. 10. I been informed by the family that they would not recommend redo tracheostomy as she was not happy with previous tracheostomy. 11. We will be approaching the family in next few days and making some decisions. 05/08 1. cont vent support setting reviewed, FiO2, keep saturation 94% and above. ett bleeding improved 2. Continue empiric antibiotics. 3. Follow up chest x-rays reviewed Severe diffuse pulmonary opacities, 4. Continue to hold Eliquis. 5. CT of the neck without any subglottic stenosis. 6. SCDs for DVT prophylaxis and hold off Lovenox. No further endotracheal bleeding seen but hemoglobin trending down. 7. PPI for stress ulcer prophylaxis. 8. Discussed with RN. Chart reviewed, imaging studies reviewed. 9. We will wean sedation off. And assess her ability to tolerate CPAP trials 05/07 1. cont vent support setting reviewed, FiO2, keep saturation 94% and above. ett bleeding improved 2. Continue empiric antibiotics. 3. Follow up chest x-rays reviewed Severe diffuse pulmonary opacities, 4. Continue to hold Eliquis. We will ask Cardiology for any cardiac reason for her being on Eliquis. Question history of A. fib. 5. CT of the neck to rule out any subglottic stenosis. 6. SCDs for DVT prophylaxis and hold off Lovenox until endotracheal bleeding has completely resolved. 7. PPI for stress ulcer prophylaxis. 8. Discussed with RN. Chart reviewed, imaging studies reviewed. 05/06 1. cont vent support setting reviewed, FiO2, keep saturation 94% and above. ett bleeding improved minimal bleeding now 2. Continue empiric antibiotics. 3. Follow up chest x-rays reviewed Severe diffuse pulmonary opacities, decreased compared to prior. 4. Continue to hold Eliquis. We will ask Cardiology for any cardiac reason for her being on Eliquis. Question history of A. fib. 5. We may need a CT of the neck to rule out any subglottic stenosis. 6. SCDs for DVT prophylaxis and hold off Lovenox until endotracheal bleeding has completely resolved. 7. PPI for stress ulcer prophylaxis. 8. Discussed with RN. Chart reviewed, imaging studies reviewed. JEFFREY LYONS MD May 11, 2021 10:01
[2021-05-11 10:44] LABS: BASO # 0.1 x10^3/uL (0.0-0.2); BASO % 1 % (0-3); EOS # 0.3 x10^3/uL (0.0-0.7); EOS % 3 % (0-3); HEMATOCRIT 22.1 % (36.0-47.0); HEMOGLOBIN 7.3 g/dL (12.0-15.5); LYMPH # 1.8 x10^3/uL (1.0-4.8); LYMPH % 19 % (24-48); MEAN CORPUSCULAR HEMOGLOBIN 30 pg (25-35); MEAN CORPUSCULAR HGB CONC 33 g/dL (31-37); MEAN CORPUSCULAR VOLUME 89 fL (79-100); MONO # 0.8 x10^3/uL (0.0-1.1); MONO % 8 % (0-9); NEUT # 6.4 x10^3/uL (1.8-7.7); NEUT % 68 % (31-73); PLATELET COUNT 294 x10^3/uL (140-400); RED BLOOD COUNT 2.48 x10^6/uL (3.50-5.40); RED CELL DISTRIBUTION WIDTH 14.7 % (11.5-14.5); WHITE BLOOD COUNT 9.4 x10^3/uL (4.0-11.0)
--- NOTE | 2021-05-11 11:27 | PDOC ---
[facility] PROGRESS NOTE Date of Service DOS: DATE: 05/11/21 TIME: 11:25 Chief Complaint Chief Complaint Respiratory failure Probable bacterial pneumonia Recent COVID-19 in November of last year Possible tracheal [place] History of tracheostomy with decannulation Chronic anticoagulation with some hemoptysis Septic shock Lactic acidosis Acute hypoxic respiratory failure secondary to likely bacterial pneumonia versus viral pneumonia, septic shock, lactic acidosis History of Present Illness History of Present Illness 05/11/2021 Patient seen and examined in the ICU She remains on the vent AC/20/450/40 percent with 5 of PEEP OG feeds at 45 cc an hour Sedated with Dex Has several family members present. 1 son named Tushar is here who I think is the DPOA They're discussing whether to go forward with tracheostomy Chart reviewed Discussed with RN She remains critically ill 05/10/2021 Patient seen and examined in the ICU She remains on the vent AC/20/450/40 percent with 5 PEEP Sedated with Dex Mitt on the right hand left hand not moving much per RN SCDs in place Simon to bedside drainage Chart reviewed Discussed with RN She remains extremely critically ill 05/09/2021 Patient seen and examined in the ICU Remains on the ventilator AC/20/450/40 +5 of PEEP Chart reviewed Discussed with RN He remains critically ill 05/08/2021 Patient seen and examined in the ICU She remains on the vent AC/20/450 with 40% FiO2 and 5 of PEEP Sedated with fentanyl and Versed On IV Levophed Discussed with RN Chart reviewed She remains very critically ill 05/07/2021 Patient seen and examined in the ICU He remains on the vent AC/20/450/40 percent with 5 of PEEP Sedated with Versed fentanyl and propofol Discussed with RN Chart reviewed She remains very critically ill 05/06/2021 Patient seen and examined in the ICU She remains on the ventilator AC/20/450/50 percent with 5 of PEEP OG at 40 cc an hour Sedated with fentanyl and propofol and Versed Has Simon to bedside drainage SCDs are in place Chart reviewed Discussed with RN She remains critically ill 05/05/2021 Patient seen and examined in the ICU She remains on the ventilator AC/20/450/50 percent with 5 of PEEP Simon bedside drainage SCDs in place OG at 30 cc an hour Sedated with fentanyl propofol and Versed Chart reviewed Discussed with RN She remains critically ill 05/04/2021 Patient seen and examined in the ICU She is currently on the vent AC//450/50 +5 of PEEP Chart reviewed Discussed with RN She is sedated with Versed fentanyl Has IV Levophed hanging Vitals/I&O Vitals/I&O: Vital Signs Date Time Temp Pulse Resp B/P (MAP) Pulse Ox O2 Delivery O2 Flow Rate FiO2 05/11/21 11:00 75 20 133/67 98 Ventilator 05/11/21 08:00 99.0 99.0 I & O 05/10/21 05/10/21 05/11/21 15:00 23:00 07:00 Intake Total 350 ml 972 ml Output Total 525 ml 500 ml 100 ml Balance -175 ml 472 ml -100 ml Physical Exam General: Other (Intubated) Heart: Regular rate Lungs: Other (Decreased breath sounds) Abdomen: Normal bowel sounds Extremities: No clubbing Skin: No rashes Labs Labs: Laboratory Tests Test 05/11/21 06:26 White Blood Count 9.4 x10^3/uL (4.0-11.0) Red Blood Count 2.48 x10^6/uL (3.50-5.40) Hemoglobin 7.3 g/dL (12.0-15.5) Hematocrit 22.1 % (36.0-47.0) Mean Corpuscular Volume 89 fL (79-100) Mean Corpuscular Hemoglobin 30 pg (25-35) Mean Corpuscular Hemoglobin Concent 33 g/dL (31-37) Red Cell Distribution Width 14.7 % (11.5-14.5) Platelet Count 294 x10^3/uL (140-400) Neutrophils (%) (Auto) 68 % (31-73) Lymphocytes (%) (Auto) 19 % (24-48) Monocytes (%) (Auto) 8 % (0-9) Eosinophils (%) (Auto) 3 % (0-3) Basophils (%) (Auto) 1 % (0-3) Neutrophils # (Auto) 6.4 x10^3/uL (1.8-7.7) Lymphocytes # (Auto) 1.8 x10^3/uL (1.0-4.8) Monocytes # (Auto) 0.8 x10^3/uL (0.0-1.1) Eosinophils # (Auto) 0.3 x10^3/uL (0.0-0.7) Basophils # (Auto) 0.1 x10^3/uL (0.0-0.2) Sodium Level 141 mmol/L (136-145) Potassium Level 3.3 mmol/L (3.5-5.1) Chloride Level 106 mmol/L (98-107) Carbon Dioxide Level 29 mmol/L (21-32) Anion Gap 6 (6-14) Blood Urea Nitrogen 15 mg/dL (7-20) Creatinine 0.6 mg/dL (0.6-1.0) Estimated GFR (Cockcroft-Gault) 101.0 Glucose Level 151 mg/dL (70-99) Calcium Level 7.8 mg/dL (8.5-10.1) Assessment and Plan Assessmemt and Plan Problems Medical Problems: (1) Cardiac arrest Status: Acute (2) Hypokalemia Status: Acute (3) Lactic acidosis Status: Acute (4) Pneumonia Status: Acute (5) Respiratory failure, acute Status: Acute (6) Septic shock Status: Acute Respiratory failure Probable bacterial pneumonia Recent COVID-19 in November of last year Possible tracheal [place] History of tracheostomy with decannulation Chronic anticoagulation with some hemoptysis Septic shock Lactic acidosis Acute hypoxic respiratory failure secondary to likely bacterial pneumonia versus viral pneumonia, septic shock, lactic acidosis Plan Per pulmonary patient may need tracheostomy and family is considering that for now continue the following; ICU monitoring Vent weaning IV antibiotics Continue sedation with Dex OG feeds Maintenance IV Trying to wean off Levophed Supportive care Mitt for patient safety Home meds if possible Trend labs Appreciate subspecialist input DVT prophylaxis Full code Prognosis very guarded CC time 31 minutes Comment Review of Relevant I have reviewed the following items davina (where applicable) has been applied. Medications: Current Medications Medications (Trade) Dose Ordered Sig/Qing Route PRN Reason Start Time Stop Time Status Last Admin Dose Admin Vancomycin HCl 1.25 gm/Sodium Chloride 250 ml @ 167 mls/hr Q12H IV 05/10/21 12:00 05/10/21 23:39 Potassium Bicarbonate (Potassium Effervescent Tablet) 40 meq 1X ONCE PO 05/11/21 08:30 05/11/21 08:31 DC 05/11/21 10:55 Justifications for Admission Other Justification LUCERO PERAZA III DO May 11, 2021 11:27
[2021-05-11] MEDS ORDERED: MIDAZOLAM HCL/PF 5 MG/5 ML VIAL. IVP ONE (11:30)
[2021-05-11] MEDS ORDERED: MIDAZOLAM HCL/PF 5 MG/5 ML VIAL. ONE (11:32)
[2021-05-11] MEDS: DEXMEDETOMIDINE 400 MCG in IV NORMAL SALINE 100ML 96 ML IV PRN ×4 (11:33→23:44)
[2021-05-11] MEDS: VANCOMYCIN 1.25 GM in IV NORMAL SALINE 250ML 250 ML IV SCH (11:34)
--- NOTE | 2021-05-11 12:32 | RAD ---
Exam Date: 05/11/2021 12:[address] HEAD/BRAIN WO Indication: Reason: AMS, left arm flaccid / Spl. Instructions: / History: . TECHNIQUE: Head CT was performed without intravenous contrast. One or more of the following dose re duction techniques were utilized: *Automated exposure control (AEC) *Adjustment of mA and/or kV according to patient size *Use of iterative reconstruction technique *CT scan done according to ALARA, or ALARA/IMAGE GENTLY FINDINGS: The ventricles and sulci are prominent consistent with cerebral volume loss. Patchy ill-defined low attenuation areas in the subcortical and periventricular white matter bilaterally are consistent with microvascular disease. There is no evidence of acute intracranial hemorrhage, extra-axial collecti on, mass effect, midline shift, or acute territorial infarct. No lesion of the skull base or the calv arium is seen. The visualized mastoid air cells and orbits are normal in appearance. There is partia l opacification of the paranasal sinuses. IMPRESSION: No evidence for acute intracranial abnormality. Volume loss and microvascular disease. Electronically signed by: Thai Kim MD (05/11/2021 12:30 PM) [id number]
--- NOTE | 2021-05-11 12:35 | PDOC2 ---
EMILY TRAN STORAGE AND BACKUP ADMINISTRATOR 05/11/21 1235: CONSULT Date of Consult Date of Consult DATE: 05/11/21 TIME: 12:29 Reason for Consult Reason for Consult: trach placement Referring Physician Referring Physician: Dr Calderon Identification/Chief Complaint Chief Complaint Resp distress Source Source: Caregiver, Chart review History of Present Illness Reason for Visit: Several admissions for resp distress, previous trach in November, Hx of Covid pneumonia Trach removed when improved, however admitted 2 since trach removed with respiratory complications and intubation needs She has been on eliquis, currently on hold Past Medical History Cardiovascular: CHF, HTN Pulmonary: Pneumonia Renal/: Chronic renal insuff Past Surgical History Past Surgical History: Cholecystectomy, Tubal Ligation Family History Family History: Cancer, Coronary Artery Disease, Diabetes Social History No ALCOHOL: none Drugs: None Current Problem List Problem List Problems Medical Problems: (1) Cardiac arrest Status: Acute (2) Hypokalemia Status: Acute (3) Lactic acidosis Status: Acute (4) Pneumonia Status: Acute (5) Respiratory failure, acute Status: Acute (6) Septic shock Status: Acute Current Medications Current Medications Current Medications Propofol 100 ml @ As Directed STK-MED ONCE IV ; Start 05/03/21 at 10:43; Stop 05/03/21 at 10:43; Status DC Norepinephrine Bitartrate 8 mg/ Dextrose 258 ml @ 19.35 mls/ hr 1X ONCE IV Last administered on 05/03/21at 11:20; Start 05/03/21 at 11:15; Stop 05/04/21 at 00:34; Status DC Propofol (Diprivan) 200 mg TITRATE ONCE IV ; Start 05/03/21 at 11:45; Stop 05/03/21 at 11:46; Status UNV Propofol 100 ml @ 3 mls/hr CONT PRN IV PER PROTOCOL Last administered on 05/03/21at 10:50; Start 05/03/21 at 11:45; Stop 05/03/21 at 12:49; Status DC Cefepime HCl (Maxipime) 2 gm 1X ONCE IVP Last administered on 05/03/21at 11:45; Start 05/03/21 at 11:45; Stop 05/03/21 at 11:46; Status DC Vancomycin HCl 1.5 gm/Sodium Chloride 500 ml @ 250 mls/hr 1X ONCE IV ; Start 05/03/21 at 11:45; Stop 05/03/21 at 13:44; Status UNV Sodium Chloride 1,000 ml @ 1,000 mls/hr 1X ONCE IV Last administered on 05/03/21at 10:50; Start 05/03/21 at 11:45; Stop 05/03/21 at 12:44; Status DC Sodium Chloride 1,000 ml @ 1,000 mls/hr 1X ONCE IV Last administered on 05/03/21at 11:00; Start 05/03/21 at 11:45; Stop 05/03/21 at 12:44; Status DC Sodium Chloride 1,000 ml @ 250 mls/hr Q4H IV Last administered on 05/04/21at 03:45; Start 05/03/21 at 11:45; Stop 05/04/21 at 11:44; Status DC Vancomycin HCl 2 gm/Sodium Chloride 500 ml @ 250 mls/hr 1X ONCE IV Last administered on 05/03/21at 12:00; Start 05/03/21 at 12:00; Stop 05/03/21 at 13:59; Status DC Potassium Bicarbonate (Potassium Effervescent Tablet) 40 meq 1X ONCE NG Last administered on 05/03/21at 15:01; Start 05/03/21 at 12:00; Stop 05/03/21 at 12:01; Status DC Potassium Chloride/Water 100 ml @ 100 mls/hr Q1H IV ; Start 05/03/21 at 12:00; Stop 05/03/21 at 12:04; Status DC Apixaban (Eliquis) 5 mg BID PO ; Start 05/03/21 at 21:00; Stop 05/03/21 at 15:54; Status DC Primidone (Mysoline) 50 mg DAILY PO Last administered on 05/11/21at 08:15; Start 05/04/21 at 09:00 Quetiapine Fumarate (SEROquel) 25 mg BID PO Last administered on 05/11/21at 08:15; Start 05/03/21 at 21:00 Citalopram Hydrobromide (CeleXA) 20 mg DAILY PO Last administered on 05/11/21at 08:15; Start 05/04/21 at 09:00 Pantoprazole Sodium (PROTONIX VIAL for IV PUSH) 40 mg DAILYAC IVP Last administered on 05/11/21at 07:30; Start 05/04/21 at 07:30 Potassium Chloride/Water 100 ml @ 100 mls/hr Q1H IV Last administered on 05/03/21at 13:43; Start 05/03/21 at 12:00; Stop 05/03/21 at 13:59; Status DC Magnesium Sulfate 50 ml @ 25 mls/hr 1X ONCE IV Last administered on 05/03/21at 15:00; Start 05/03/21 at 12:00; Stop 05/03/21 at 13:59; Status DC Ondansetron HCl (Zofran) 4 mg PRN Q6HRS PRN IVP NAUSEA/VOMITING; Start 05/03/21 at 12:00 Calcium Carbonate/ Glycine (Tums) 500 mg PRN Q3HRS PRN PO HEARTBURN / GAS; Start 05/03/21 at 12:00 Info (Icu Electrolyte Protocol) 1 ea DAILY MC Last administered on 05/11/21at 08:20; Start 05/04/21 at 09:00 Sodium Chloride (Normal Saline Flush) 3 ml QSHIFT PRN IV AFTER MEDS AND BLOOD DRAWS; Start 05/03/21 at 12:00 Potassium Chloride/Water 100 ml @ 100 mls/hr Q1H IV Last administered on 05/03/21at 15:57; Start 05/03/21 at 14:00; Stop 05/03/21 at 15:59; Status DC Fentanyl Citrate 30 ml @ 2.5 mls/hr CONT PRN IV SEE PROTOCOL Last administered on 05/08/21at 06:54; Start 05/03/21 at 12:45 Midazolam HCl 100 ml @ 1 mls/hr CONT PRN IV SEE PROTOCOL Last administered on 05/08/21at 07:57; Start 05/03/21 at 12:45 Propofol 100 ml @ 3 mls/hr CONT PRN IV PER PROTOCOL Last administered on 05/08/21at 22:06; Start 05/03/21 at 12:45 Vecuronium Wyatt (Norcuron Bolus) 6 mg PRN 1X PRN IV VENT INDUCTION; Start 05/03/21 at 12:45; Stop 05/04/21 at 12:44; Status DC Dexmedetomidine HCl 400 mcg/ Sodium Chloride 100 ml @ 7,500 mls/hr CONT PRN IV PER PROTOCOL Last administered on 05/09/21at 10:42; Start 05/03/21 at 12:45; Stop 05/09/21 at 10:49; Status DC Iohexol (Omnipaque 350 Mg/ml) 100 ml 1X ONCE IV Last administered on 05/03/21at 12:58; Start 05/03/21 at 13:00; Stop 05/03/21 at 13:01; Status DC Info (CONTRAST GIVEN -- Rx MONITORING) 1 each PRN DAILY PRN MC SEE COMMENTS; Start 05/03/21 at 13:00; Stop 05/05/21 at 12:59; Status DC Piperacillin Sod/ Tazobactam Sod (Zosyn Per Pharmacy) 1 each PRN DAILY PRN MC SEE COMMENTS; Start 05/03/21 at 15:15; Stop 05/03/21 at 15:07; Status DC Vancomycin HCl (Vanco Per Pharmacy) 1 each PRN DAILY PRN MC SEE COMMENTS Last administered on 05/11/21at 09:00; Start 05/03/21 at 15:15 Cefepime HCl (Maxipime) 1 gm Q8HRS IVP ; Start 05/03/21 at 15:30; Status Cancel Insulin Human Lispro (HumaLOG) 0-7 UNITS TIDWMEALS SQ ; Start 05/03/21 at 17:00; Stop 05/07/21 at 07:52; Status DC Dextrose (Dextrose 50%-Water Syringe) 12.5 gm PRN Q15MIN PRN IV SEE COMMENTS; Start 05/03/21 at 15:15; Stop 05/07/21 at 07:53; Status DC Cefepime HCl (Maxipime) 1 gm Q8HRS IVP Last administered on 05/11/21at 07:00; Start 05/03/21 at 22:00 Methylprednisolone Sodium Succinate (SOLU-Medrol 125MG VIAL) 125 mg 1X ONCE IV Last administered on 05/03/21at 15:56; Start 05/03/21 at 15:30; Stop 05/03/21 at 15:31; Status DC Vancomycin HCl 1 gm/Sodium Chloride 250 ml @ 250 mls/hr Q12H IV Last administered on 05/10/21at 00:06; Start 05/04/21 at 00:00; Stop 05/10/21 at 10:46; Status DC Vancomycin HCl (Vancomycin Trough Level) 1 each 1X ONCE MC ; Start 05/04/21 at 23:30; Stop 05/04/21 at 23:31; Status DC Potassium Chloride/Water 100 ml @ 100 mls/hr Q1H IV Last administered on 05/04/21at 09:38; Start 05/04/21 at 08:00; Stop 05/04/21 at 09:59; Status DC Calcium Chloride (Calcium Chloride) 1,000 mg STK-MED ONCE .ROUTE ; Start 05/03/21 at 11:00; Stop 05/04/21 at 12:23; Status DC Sodium Bicarbonate (Sodium Bicarb Adult 8.4% Syr) 50 meq STK-MED ONCE .ROUTE ; Start 05/03/21 at 11:00; Stop 05/04/21 at 12:23; Status DC Epinephrine HCl (EPINEPHrine SYRINGE) 3 mg STK-MED ONCE .ROUTE ; Start 05/03/21 at 11:00; Stop 05/04/21 at 12:23; Status DC Potassium Chloride/Water 100 ml @ 100 mls/hr Q1H IV Last administered on 04/21 09/09at 12:19; Start 05/05/21 at 09:00; Stop 05/05/21 at 12:59; Status DC Potassium Chloride/Water 100 ml @ 100 mls/hr Q1H IV Last administered on 05/06/21at 11:05; Start 05/06/21 at 10:00; Stop 05/06/21 at 11:59; Status DC Insulin Human Lispro (HumaLOG) 0-7 UNITS Q6HRS SQ ; Start 05/07/21 at 12:00; Stop 05/10/21 at 11:00; Status DC Dextrose (Dextrose 50%-Water Syringe) 12.5 gm PRN Q15MIN PRN IV SEE COMMENTS; Start 05/07/21 at 08:00 Norepinephrine Bitartrate 8 mg/ Dextrose 258 ml @ 21.672 mls/ hr CONT PRN IV PER PROTOCOL Last administered on 05/07/21at 11:40; Start 05/07/21 at 11:30 Vancomycin HCl (Vancomycin Trough Level) 1 each 1X ONCE MC ; Start 05/09/21 at 11:30; Stop 05/09/21 at 11:31; Status DC Metoprolol Tartrate (Lopressor Vial) 5 mg PRN Q6HRS PRN IVP HYPERTENSION Last administered on 05/09/21at 04:52; Start 05/09/21 at 03:45 Scopolamine (Transderm-Scop) 1 patch Q3DAYS TD Last administered on 05/09/21at 10:20; Start 05/09/21 at 10:00 Dexmedetomidine HCl 400 mcg/ Sodium Chloride 100 ml @ 7,500 mls/hr CONT PRN IV PER PROTOCOL; Start 05/09/21 at 11:00; Stop 05/09/21 at 10:56; Status DC Dexmedetomidine HCl 400 mcg/ Sodium Chloride 100 ml @ 5 mls/hr CONT PRN IV PER PROTOCOL Last administered on 05/11/21at 11:33; Start 05/09/21 at 11:00 Potassium Bicarbonate (Potassium Effervescent Tablet) 20 meq 1X ONCE PEG Last administered on 05/09/21at 13:56; Start 05/09/21 at 14:00; Stop 05/09/21 at 14:01; Status DC Potassium Bicarbonate (Potassium Effervescent Tablet) 40 meq 1X ONCE PEG Last administered on 05/10/21at 10:23; Start 05/10/21 at 10:00; Stop 05/10/21 at 10:01; Status DC Vancomycin HCl 1.25 gm/Sodium Chloride 250 ml @ 167 mls/hr Q12H IV Last administered on 05/11/21at 11:34; Start 05/10/21 at 12:00 Potassium Bicarbonate (Potassium Effervescent Tablet) 40 meq 1X ONCE PO Last administered on 05/11/21at 10:55; Start 05/11/21 at 08:30; Stop 05/11/21 at 08:31; Status DC Midazolam HCl (Versed) 5 mg 1X ONCE IVP Last administered on 05/11/21at 11:34; Start 05/11/21 at 11:30; Stop 05/11/21 at 11:32; Status DC Active Scripts Active Easy Neb Compressor Nebulizer (Nebulizer and Compressor) 1 Each Each Each MC PRN PRN Use with albuterol as needed every 4 hours Albuterol Sulfate Neb Soln (Albuterol Sulfate) 2.5 Mg/3 Ml Vial.neb 1 Vial NEB PRN Q4HRS PRN 30 Days Levofloxacin 750 Mg Tablet 1 Tab PO DAILY 5 Days Reported Seroquel (Quetiapine Fumarate) 25 Mg Tablet 25 Mg PO BID Mysoline (Primidone) 50 Mg Tablet 50 Mg PO DAILY Escitalopram Oxalate 20 Mg Tablet 20 Mg PO DAILY Omeprazole 20 Mg Capsule.dr 20 Mg PO DAILY Eliquis (Apixaban) 5 Mg Tablet 5 Mg PO BID Lasix (Furosemide) 40 Mg Tablet 40 Mg PO DAILY Allergies Allergies: Coded Allergies: Penicillins (Unverified Allergy, Intermediate, EDEMA, 03/26/21) latex (Verified Allergy, Intermediate, 03/26/21) azithromycin (Unverified Adverse Reaction, Intermediate, Anxiety, 04/25/21) ROS Review of System unable to obtain due to current mental status Physical Exam General: Other (sedated ) HEENT: Other (noted previous trach scar) Lungs: Other (mech vent ) Heart: Regular rate, Normal S1, Normal S2 Abdomen: Soft, Other (obese) Extremities: No clubbing, No cyanosis Skin: No significant lesion MUSCULOSKELETAL: No deformity Vitals VITALS Vital Signs Date Time Temp Pulse Resp B/P (MAP) Pulse Ox O2 Delivery O2 Flow Rate FiO2 05/11/21 11:00 75 20 133/67 98 Ventilator 05/11/21 08:00 99.0 99.0 Labs Labs Laboratory Tests Test 05/09/21 18:52 05/10/21 00:04 05/10/21 05:43 05/10/21 07:06 Glucose (Fingerstick) 129 mg/dL (70-99) 132 mg/dL (70-99) 127 mg/dL (70-99) Sodium Level 140 mmol/L (136-145) Potassium Level 3.4 mmol/L (3.5-5.1) Chloride Level 104 mmol/L (98-107) Carbon Dioxide Level 28 mmol/L (21-32) Anion Gap 8 (6-14) Blood Urea Nitrogen 14 mg/dL (7-20) Creatinine 0.5 mg/dL (0.6-1.0) Estimated GFR (Cockcroft-Gault) 124.6 Glucose Level 147 mg/dL (70-99) Calcium Level 7.7 mg/dL (8.5-10.1) Magnesium Level 2.2 mg/dL (1.8-2.4) Test 05/10/21 08:10 05/10/21 10:52 05/11/21 06:26 O2 Saturation 95 % (92-99) Arterial Blood pH 7.47 (7.35-7.45) Arterial Blood pCO2 at Patient Temp 35 mmHg (35-46) Arterial Blood pO2 at Patient Temp 78 mmHg (65-108) Arterial Blood HCO3 25 mmol/L (21-28) Arterial Blood Base Excess 1 mmol/L (-3-3) FiO2 40 Nasal Screen MRSA (PCR) Negative (NEGATIVE) White Blood Count 9.4 x10^3/uL (4.0-11.0) Red Blood Count 2.48 x10^6/uL (3.50-5.40) Hemoglobin 7.3 g/dL (12.0-15.5) Hematocrit 22.1 % (36.0-47.0) Mean Corpuscular Volume 89 fL (79-100) Mean Corpuscular Hemoglobin 30 pg (25-35) Mean Corpuscular Hemoglobin Concent 33 g/dL (31-37) Red Cell Distribution Width 14.7 % (11.5-14.5) Platelet Count 294 x10^3/uL (140-400) Neutrophils (%) (Auto) 68 % (31-73) Lymphocytes (%) (Auto) 19 % (24-48) Monocytes (%) (Auto) 8 % (0-9) Eosinophils (%) (Auto) 3 % (0-3) Basophils (%) (Auto) 1 % (0-3) Neutrophils # (Auto) 6.4 x10^3/uL (1.8-7.7) Lymphocytes # (Auto) 1.8 x10^3/uL (1.0-4.8) Monocytes # (Auto) 0.8 x10^3/uL (0.0-1.1) Eosinophils # (Auto) 0.3 x10^3/uL (0.0-0.7) Basophils # (Auto) 0.1 x10^3/uL (0.0-0.2) Sodium Level 141 mmol/L (136-145) Potassium Level 3.3 mmol/L (3.5-5.1) Chloride Level 106 mmol/L (98-107) Carbon Dioxide Level 29 mmol/L (21-32) Anion Gap 6 (6-14) Blood Urea Nitrogen 15 mg/dL (7-20) Creatinine 0.6 mg/dL (0.6-1.0) Estimated GFR (Cockcroft-Gault) 101.0 Glucose Level 151 mg/dL (70-99) Calcium Level 7.8 mg/dL (8.5-10.1) Laboratory Tests Test 05/11/21 06:26 White Blood Count 9.4 x10^3/uL (4.0-11.0) Red Blood Count 2.48 x10^6/uL (3.50-5.40) Hemoglobin 7.3 g/dL (12.0-15.5) Hematocrit 22.1 % (36.0-47.0) Mean Corpuscular Volume 89 fL (79-100) Mean Corpuscular Hemoglobin 30 pg (25-35) Mean Corpuscular Hemoglobin Concent 33 g/dL (31-37) Red Cell Distribution Width 14.7 % (11.5-14.5) Platelet Count 294 x10^3/uL (140-400) Neutrophils (%) (Auto) 68 % (31-73) Lymphocytes (%) (Auto) 19 % (24-48) Monocytes (%) (Auto) 8 % (0-9) Eosinophils (%) (Auto) 3 % (0-3) Basophils (%) (Auto) 1 % (0-3) Neutrophils # (Auto) 6.4 x10^3/uL (1.8-7.7) Lymphocytes # (Auto) 1.8 x10^3/uL (1.0-4.8) Monocytes # (Auto) 0.8 x10^3/uL (0.0-1.1) Eosinophils # (Auto) 0.3 x10^3/uL (0.0-0.7) Basophils # (Auto) 0.1 x10^3/uL (0.0-0.2) Sodium Level 141 mmol/L (136-145) Potassium Level 3.3 mmol/L (3.5-5.1) Chloride Level 106 mmol/L (98-107) Carbon Dioxide Level 29 mmol/L (21-32) Anion Gap 6 (6-14) Blood Urea Nitrogen 15 mg/dL (7-20) Creatinine 0.6 mg/dL (0.6-1.0) Estimated GFR (Cockcroft-Gault) 101.0 Glucose Level 151 mg/dL (70-99) Calcium Level 7.8 mg/dL (8.5-10.1) Assessment/Plan Assessment/Plan resp distress, required intubation, multiple issues with this will review with Dr Yap for possible trach VENESSA YAP MD 05/11/211937: CONSULT Assessment/Plan Assessment/Plan Pt seen and examined. Agree with Ms. Tran's note Pt intubated and sedated neck supple, well healed neck incision will follow for possible tracheostomy, if deemed appropriate, pt's family elects and pt unable to be wean Thanks for consult! EMILY TRAN APRN May 11, 2021 12:35 VENESSA YAP MD May 11, 2021 19:38
[2021-05-11 14:06] LABS: FIO2 ABG 40
--- NOTE | 2021-05-11 15:09 | NUR ---
SS following up with discharge planning. SS reviewed pt chart and discussed with pt RN. Pt is currently on the vent at 40%. COVID19 negative. Pt on IV Cefepime. Pt on Precedex. Head CT today. Dr. Yap consulted for trach. Not ready. Pt's son requesting SS contact him to discuss options for discharge planning. SS contacted pt's son and left voicemail. SS will continue to follow for discharge planning.
[2021-05-12] VITALS (24 sets, daily range): BP systolic 104–199; BP diastolic 52–89
[2021-05-12] MEDS: DEXMEDETOMIDINE 400 MCG in IV NORMAL SALINE 100ML 96 ML IV PRN ×5 (03:09→18:27)
[2021-05-12] MEDS: CEFEPIME HCL IV Push 1 GM VIAL. IVP SCH ×3 (06:00→21:00)
[2021-05-12 06:18] LABS: CALCIUM 7.7 mg/dL (8.5-10.1); CREATININE 0.5 mg/dL (0.6-1.0); GFR 124.6; POTASSIUM 3.8 mmol/L (3.5-5.1)
[2021-05-12 07:46] LABS: BASE EXCESS ABG 4 mmol/L (-3-3); HCO3 ABG 28 mmol/L (21-28); PCO2 ABG 37 mmHg (35-46); PO2 ABG 90 mmHg (65-108); SAT O2 ABG 96 % (92-99)
[2021-05-12] MEDS: PRIMIDONE 50 MG TABLET PO SCH (08:50)
[2021-05-12] MEDS: PANTOPRAZOLE IV PUSH 40 MG VIAL. IVP SCH (08:50)
[2021-05-12] MEDS: CITALOPRAM 20 MG TABLET. PO SCH (08:50)
[2021-05-12] MEDS: QUEtiapine 25 MG TABLET. PO SCH ×2 (08:51→20:52)
[2021-05-12] MEDS: ELECTROLYTE (ICU) PROTOCOL. MC SCH (08:51)
[2021-05-12] MEDS: SCOPOLAMINE 1.5MG PATCH. TD SCH (08:51)
[2021-05-12 09:19] LABS: FIO2 ABG 40
--- NOTE | 2021-05-12 10:00 | PDOC ---
GENERAL General: Patient examined chart reviewed I met this patient earlier this month when she was admitted with acute on chronic respiratory failure secondary to long COVID. She was treated for bilateral pneumonia and discharged home only to be readmitted again in acute respiratory failure after cardiac arrest. She has been intubated since her readmission 10 days ago. Appreciate pulmonary support. She has been maintained on broad-spectrum antibiotics. Critical care team has spoken with the patient's son about his mother's wishes for long-term life support does appear that she may need a tracheostomy and prolonged ventilation. At this point we will continue current management. Patient is requiring pressor support. Time spent today is 30 minutes with greater than 50% in counseling and coordination of care most of which in lengthy chart review and patient assessment. Problems: (1) Cardiac arrest (2) Septic shock (3) Chronic respiratory failure with hypoxia and hypercapnia (4) COVID-19 estela titusuler manifesting chronic dyspnea (5) Respiratory failure, acute (6) Pneumonia VITAL SIGNS Vital Signs/I&O: Vital Signs Date Time Temp Pulse Resp B/P (MAP) Pulse Ox O2 Delivery O2 Flow Rate FiO2 05/12/21 07:52 98 Ventilator 05/12/21 07:00 55 20 112/58 05/12/21 05:00 98.7 98.7 I & O 05/11/21 05/11/21 05/12/21 15:00 23:00 07:00 Intake Total 450 ml 1760 ml 555 ml Output Total 175 ml 225 ml 125 ml Balance 275 ml 1535 ml 430 ml Patient is lightly sedated on the ventilator does not respond to commands appears comfortable HEENT exam is unremarkable for acute abnormality Chest bilateral equal air entry though diminished throughout no crackles or wheezes are noted Heart S1-S2 normal tachycardic no murmurs or gallops are noted Abdomen obese soft nontender nondistended no masses organomegaly noted Extremity exam is notable for widespread edema ALLERGIES Allergies: Allergies Coded Allergies Type Severity Reaction Last Updated Verified Penicillins Allergy Intermediate EDEMA 03/26/21 No latex Allergy Intermediate 03/26/21 Yes azithromycin Adverse Reaction Intermediate Anxiety 04/25/21 No MEDS Medications: Current Medications Medications (Trade) Dose Ordered Sig/Qing Start Time Stop Time Status Last Admin Dose Admin Apixaban (Eliquis) 5 mg BID 05/03/21 21:00 05/03/21 15:54 DC Calcium Carbonate/ Glycine (Tums) 500 mg PRN Q3HRS PRN 05/03/21 12:00 Calcium Chloride (Calcium Chloride) 1,000 mg STK-MED ONCE 05/03/21 11:00 05/04/21 12:23 DC Cefepime HCl (Maxipime) 1 gm Q8HRS 05/03/21 22:00 05/12/21 06:00 Citalopram Hydrobromide (CeleXA) 20 mg DAILY 05/04/21 09:00 05/12/21 08:50 Dexmedetomidine HCl 400 mcg/ Sodium Chloride 100 ml @ 5 mls/hr CONT PRN 05/09/21 11:00 05/12/21 08:56 Dextrose (Dextrose 50%-Water Syringe) 12.5 gm PRN Q15MIN PRN 05/07/21 08:00 Epinephrine HCl (EPINEPHrine SYRINGE) 3 mg STK-MED ONCE 05/03/21 11:00 05/04/21 12:23 DC Fentanyl Citrate 30 ml @ 2.5 mls/hr CONT PRN 05/03/21 12:45 05/08/21 06:54 Info (CONTRAST GIVEN -- Rx MONITORING) 1 each PRN DAILY PRN 05/03/21 13:00 05/05/21 12:59 DC Info (Icu Electrolyte Protocol) 1 ea DAILY 05/04/21 09:00 05/11/21 08:20 Insulin Human Lispro (HumaLOG) 0-7 UNITS Q6HRS 05/07/21 12:00 05/10/21 11:00 DC Iohexol (Omnipaque 350 Mg/ml) 100 ml 1X ONCE 05/03/21 13:00 05/03/21 13:01 DC 05/03/21 12:58 Magnesium Sulfate 50 ml @ 25 mls/hr 1X ONCE 05/03/21 12:00 05/03/21 13:59 DC 05/03/21 15:00 Methylprednisolone Sodium Succinate (SOLU-Medrol 125MG VIAL) 125 mg 1X ONCE 05/03/21 15:30 05/03/21 15:31 DC 05/03/21 15:56 Metoprolol Tartrate (Lopressor Vial) 5 mg PRN Q6HRS PRN 05/09/21 03:45 05/09/21 04:52 Midazolam HCl (Versed) 5 mg 1X ONCE 05/11/21 11:30 05/11/21 11:32 DC 05/11/21 11:34 Norepinephrine Bitartrate 8 mg/ Dextrose 258 ml @ 21.672 mls/ hr CONT PRN 05/07/21 11:30 05/07/21 11:40 Ondansetron HCl (Zofran) 4 mg PRN Q6HRS PRN 05/03/21 12:00 Pantoprazole Sodium (PROTONIX VIAL for IV PUSH) 40 mg DAILYAC 05/04/21 07:30 05/12/21 08:50 Piperacillin Sod/ Tazobactam Sod (Zosyn Per Pharmacy) 1 each PRN DAILY PRN 05/03/21 15:15 05/03/21 15:07 DC Potassium Bicarbonate (Potassium Effervescent Tablet) 40 meq 1X ONCE 05/11/21 08:30 05/11/21 08:31 DC 05/11/21 10:55 Potassium Chloride/Water 100 ml @ 100 mls/hr Q1H 05/06/21 10:00 05/06/21 11:59 DC 05/06/21 11:05 Primidone (Mysoline) 50 mg DAILY 05/04/21 09:00 05/12/21 08:50 Propofol 100 ml @ 3 mls/hr CONT PRN 05/03/21 12:45 05/08/21 22:06 Propofol (Diprivan) 200 mg TITRATE ONCE 05/03/21 11:45 05/03/21 11:46 UNV Quetiapine Fumarate (SEROquel) 25 mg BID 05/03/21 21:00 05/11/21 20:17 Scopolamine (Transderm-Scop) 1 patch Q3DAYS 05/09/21 10:00 05/12/21 08:51 Sodium Bicarbonate (Sodium Bicarb Adult 8.4% Syr) 50 meq STK-MED ONCE 05/03/21 11:00 05/04/21 12:23 DC Sodium Chloride (Normal Saline Flush) 3 ml QSHIFT PRN 05/03/21 12:00 Vancomycin HCl (Vanco Per Pharmacy) 1 each PRN DAILY PRN 05/03/21 15:15 05/11/21 14:19 DC 05/11/21 09:00 Vancomycin HCl (Vancomycin Trough Level) 1 each 1X ONCE 05/09/21 11:30 05/09/21 11:31 DC Vancomycin HCl 1.25 gm/Sodium Chloride 250 ml @ 167 mls/hr Q12H 05/10/21 12:00 05/11/21 14:19 DC 05/11/21 11:34 Vancomycin HCl 1.5 gm/Sodium Chloride 500 ml @ 250 mls/hr 1X ONCE 05/03/21 11:45 05/03/21 13:44 UNV Vancomycin HCl 1 gm/Sodium Chloride 250 ml @ 250 mls/hr Q12H 05/04/21 00:00 05/10/21 10:46 DC 05/10/21 00:06 Vancomycin HCl 2 gm/Sodium Chloride 500 ml @ 250 mls/hr 1X ONCE 05/03/21 12:00 05/03/21 13:59 DC 05/03/21 12:00 Vecuronium Forbes (Norcuron Bolus) 6 mg PRN 1X PRN 05/03/21 12:45 05/04/21 12:44 DC Current Medications Medications (Trade) Dose Ordered Sig/Qing Route PRN Reason Start Time Stop Time Status Last Admin Dose Admin Midazolam HCl (Versed) 5 mg 1X ONCE IVP 05/11/21 11:30 05/11/21 11:32 DC 05/11/21 11:34 LAB Lab: Laboratory Tests Test 05/12/21 05:45 05/12/21 07:35 Sodium Level 140 mmol/L (136-145) Potassium Level 3.8 mmol/L (3.5-5.1) Chloride Level 106 mmol/L (98-107) Carbon Dioxide Level 29 mmol/L (21-32) Anion Gap 5 (6-14) L Blood Urea Nitrogen 18 mg/dL (7-20) Creatinine 0.5 mg/dL (0.6-1.0) L Estimated GFR (Cockcroft-Gault) 124.6 Glucose Level 135 mg/dL (70-99) H Calcium Level 7.7 mg/dL (8.5-10.1) L O2 Saturation 96 % (92-99) Arterial Blood pH 7.49 (7.35-7.45) H Arterial Blood pCO2 at Patient Temp 37 mmHg (35-46) Arterial Blood pO2 at Patient Temp 90 mmHg (65-108) Arterial Blood HCO3 28 mmol/L (21-28) Arterial Blood Base Excess 4 mmol/L (-3-3) H FiO2 40 Laboratory Tests 05/12/21 05:45 ASSESSMENT & PLAN A&P Plan as noted above This note was created using [employer]de[employer] and may have omissions and/or errors due to the nature of real-time voice planer mill grader. Justifications for Admission Other Justification Problem Qualifiers (1) Respiratory failure, acute: Respiratory failure complication: hypoxia and hypercapnia Qualified Codes: J96.01 - Acute respiratory failure with hypoxia; J96.02 - Acute respiratory failure with hypercapnia DEEDEE VILLANUEVA MD May 12, 2021 10:00
--- NOTE | 2021-05-12 11:18 | PDOC ---
PULMONARY PROGRESS NOTES DATE: 05/12/21 TIME: 11:12 Subjective Remains on assist control mode. Down to 40% FiO2. Off sedation. Opens eyes. Very weak and follow minimal commands. Requiring low-dose Precedex. Vitals Vital Signs Date Time Temp Pulse Resp B/P (MAP) Pulse Ox O2 Delivery O2 Flow Rate FiO2 05/12/21 11:02 98 Ventilator 05/12/21 07:00 55 20 112/58 05/12/21 05:00 98.7 98.7 Comments ros unable to obtain intubated sedated no distress nc at rrr no accessory muscle use abd obese no rash Lungs: Other (Decreased breath sounds) Cardiovascular: S1, S2 Extremities: Other (1+) Skin: No Rashes Labs Laboratory Tests Test 05/11/21 06:26 05/11/21 08:40 05/12/21 05:45 05/12/21 07:35 White Blood Count 9.4 x10^3/uL (4.0-11.0) Red Blood Count 2.48 x10^6/uL (3.50-5.40) Hemoglobin 7.3 g/dL (12.0-15.5) Hematocrit 22.1 % (36.0-47.0) Mean Corpuscular Volume 89 fL (79-100) Mean Corpuscular Hemoglobin 30 pg (25-35) Mean Corpuscular Hemoglobin Concent 33 g/dL (31-37) Red Cell Distribution Width 14.7 % (11.5-14.5) Platelet Count 294 x10^3/uL (140-400) Neutrophils (%) (Auto) 68 % (31-73) Lymphocytes (%) (Auto) 19 % (24-48) Monocytes (%) (Auto) 8 % (0-9) Eosinophils (%) (Auto) 3 % (0-3) Basophils (%) (Auto) 1 % (0-3) Neutrophils # (Auto) 6.4 x10^3/uL (1.8-7.7) Lymphocytes # (Auto) 1.8 x10^3/uL (1.0-4.8) Monocytes # (Auto) 0.8 x10^3/uL (0.0-1.1) Eosinophils # (Auto) 0.3 x10^3/uL (0.0-0.7) Basophils # (Auto) 0.1 x10^3/uL (0.0-0.2) Sodium Level 141 mmol/L (136-145) 140 mmol/L (136-145) Potassium Level 3.3 mmol/L (3.5-5.1) 3.8 mmol/L (3.5-5.1) Chloride Level 106 mmol/L (98-107) 106 mmol/L (98-107) Carbon Dioxide Level 29 mmol/L (21-32) 29 mmol/L (21-32) Anion Gap 6 (6-14) 5 (6-14) Blood Urea Nitrogen 15 mg/dL (7-20) 18 mg/dL (7-20) Creatinine 0.6 mg/dL (0.6-1.0) 0.5 mg/dL (0.6-1.0) Estimated GFR (Cockcroft-Gault) 101.0 124.6 Glucose Level 151 mg/dL (70-99) 135 mg/dL (70-99) Calcium Level 7.8 mg/dL (8.5-10.1) 7.7 mg/dL (8.5-10.1) O2 Saturation 96 % (92-99) 96 % (92-99) Arterial Blood pH 7.45 (7.35-7.45) 7.49 (7.35-7.45) Arterial Blood pCO2 at Patient Temp 39 mmHg (35-46) 37 mmHg (35-46) Arterial Blood pO2 at Patient Temp 87 mmHg (65-108) 90 mmHg (65-108) Arterial Blood HCO3 26 mmol/L (21-28) 28 mmol/L (21-28) Arterial Blood Base Excess 2 mmol/L (-3-3) 4 mmol/L (-3-3) FiO2 40 40 Laboratory Tests Test 05/12/21 05:45 05/12/21 07:35 Sodium Level 140 mmol/L (136-145) Potassium Level 3.8 mmol/L (3.5-5.1) Chloride Level 106 mmol/L (98-107) Carbon Dioxide Level 29 mmol/L (21-32) Anion Gap 5 (6-14) Blood Urea Nitrogen 18 mg/dL (7-20) Creatinine 0.5 mg/dL (0.6-1.0) Estimated GFR (Cockcroft-Gault) 124.6 Glucose Level 135 mg/dL (70-99) Calcium Level 7.7 mg/dL (8.5-10.1) O2 Saturation 96 % (92-99) Arterial Blood pH 7.49 (7.35-7.45) Arterial Blood pCO2 at Patient Temp 37 mmHg (35-46) Arterial Blood pO2 at Patient Temp 90 mmHg (65-108) Arterial Blood HCO3 28 mmol/L (21-28) Arterial Blood Base Excess 4 mmol/L (-3-3) FiO2 40 Medications Active Scripts Medications Dose Route/Sig Max Daily Dose Days Date Category Dose Instructions Easy Neb Compressor Nebulizer (Nebulizer and Compressor) 1 Each Each Each MC PRN PRN 05/01/21 Rx Use with albuterol as needed every 4 hours Albuterol Sulfate Neb Soln (Albuterol Sulfate) 2.5 Mg/3 Ml Vial.neb 1 Vial NEB PRN Q4HRS PRN 30 05/01/21 Rx Levofloxacin 750 Mg Tablet 1 Tab PO DAILY 5 05/01/21 Rx Seroquel (Quetiapine Fumarate) 25 Mg Tablet 25 Mg PO BID 04/26/21 Reported Mysoline (Primidone) 50 Mg Tablet 50 Mg PO DAILY 04/26/21 Reported Escitalopram Oxalate 20 Mg Tablet 20 Mg PO DAILY 03/26/21 Reported Omeprazole 20 Mg Capsule.dr 20 Mg PO DAILY 03/26/21 Reported Eliquis (Apixaban) 5 Mg Tablet 5 Mg PO BID 03/26/21 Reported Lasix (Furosemide) 40 Mg Tablet 40 Mg PO DAILY 03/26/[address] neck 05/07/2021 No definite tracheal stenosis seen. Chest x-ray reviewed 05/07/2021 Diffuse bilateral lung infiltrates reviewed cxr 05/05 ett ok Severe diffuse pulmonary opacities, decreased compared to prior. Impression . 1. Acute hypoxic respiratory failure secondary to likely hypoxic respiratory ar rest leading to cardiac arrest.This is her second intubation in a week, ? tracheal or sub- glottic stenosis contributing to mucous plug/ hypoxic respiratory arrest. 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 Now, she has progressive worsening of the infiltrates, especially in the upper lobes. This could be related to a component of aspiration pneumonia. 2. The patient with underlying history of COVID-19 viral pneumonia in late November and early December with chronic interstitial infiltrates. She required another hospitalization few weeks ago with respiratory failure, but was successfully extubated. 3. Status post tracheostomy followed by decannulation.. 4. Cannot exclude the possibility of subglottic stenosis contributing to respiratory arrest. 5. Underlying obesity. 6. Abnormal CT chest as discussed above. 7. Bleeding around the endotracheal tube. She had hemoptysis before coming to the hospital. Could be contributed by pneumonia as well as use of Eliquis at home. Bleeding has resolved. 8. Anemia 9. Left upper extremity weakness. Cannot exclude ischemic CVA, ct head neg Page of Plan . 05/12 1. cont vent support setting reviewed, FiO2, keep saturation 94% and above. ett bleeding improved 2. Continue empiric antibiotics. 3. Follow up chest x-rays reviewed Severe diffuse pulmonary opacities, 4. Continue to hold Eliquis. Follow-up hemoglobin still low. 5. CT of the neck without any tracheal stenosis. I deflated the cuff again today. Patient had some air leak suggesting mild improvement upper airway narrowing. 6. SCDs for DVT prophylaxis and hold off Lovenox. No further endotracheal bleeding seen but hemoglobin trending down. 7. PPI for stress ulcer prophylaxis. 8. Discussed with RN. Chart reviewed, imaging studies reviewed. 9. Currently sedation is off. Minimally awake but very weak. We will hold off on CPAP trials. 10. I had a long discussion with patient's son at the bedside05/11 I did explain to him that her 2 respiratory arrest recently are probably caused by inability to clear mucus. She probably may have upper airway narrowing/subglottic stenosis. I did explain to them that if she does not do well she would benefit from tracheostomy. Family agrees for tracheostomy. Discussed with RN and RT. 05/11 1. cont vent support setting reviewed, FiO2, keep saturation 94% and above. ett bleeding improved 2. Continue empiric antibiotics. 3. Follow up chest x-rays reviewed Severe diffuse pulmonary opacities, 4. Continue to hold Eliquis. Follow-up hemoglobin today. 5. CT of the neck without any tracheal stenosis. I deflated the cuff again today. Patient had some air leak suggesting mild improvement upper airway narrowing. 6. SCDs for DVT prophylaxis and hold off Lovenox. No further endotracheal bleeding seen but hemoglobin trending down. 7. PPI for stress ulcer prophylaxis. 8. Discussed with RN. Chart reviewed, imaging studies reviewed. 9. Currently sedation is off. Minimally awake but very weak. We will hold off on CPAP trials. 10. I had a long discussion with patient's son at the bedside again today. I did explain to him that her 2 respiratory arrest recently are probably caused by inability to clear mucus. She probably may have upper airway narrowing/subglottic stenosis. The family is going to make a decision about which direction they want to go. I did explain to them that if she does not do well she would benefit from tracheostomy. Family will also let me know if they would rather prefer not to do tracheostomy. In that case I would recommend that we should not reintubate her in case of another respiratory arrest. She is weak in left upper extremity. We may need CT head as well Discussed with RN and RT. Total critical care time 30-minute 05/10 1. cont vent support setting reviewed, FiO2, keep saturation 94% and above. ett bleeding improved 2. Continue empiric antibiotics. 3. Follow up chest x-rays reviewed Severe diffuse pulmonary opacities, 4. Continue to hold Eliquis. 5. CT of the neck without any tracheal stenosis. I deflated the cuff again today. Patient had no air leak suggesting some upper airway narrowing. 6. SCDs for DVT prophylaxis and hold off Lovenox. No further endotracheal bleeding seen but hemoglobin trending down. 7. PPI for stress ulcer prophylaxis. 8. Discussed with RN. Chart reviewed, imaging studies reviewed. 9. Currently sedation is off. She is not awake and not following commands yet. We will hold off on CPAP trials. 10. I had a long discussion with patient's son at the bedside. I did explain to him that her 2 respiratory arrest recently are probably caused by inability to clear mucus. She probably may have upper airway narrowing/subglottic stenosis. The family is going to make a decision about which direction they want to go. I did explain to them that if she does not do well she would benefit from tracheostomy. Family will also let me know if they would rather prefer not to do tracheostomy. In that case I would recommend that we should not reintubate her in case of another respiratory arrest Discussed with RN and RT. Total critical care time 30-minute 05/09 1. cont vent support setting reviewed, FiO2, keep saturation 94% and above. ett bleeding improved 2. Continue empiric antibiotics. 3. Follow up chest x-rays reviewed Severe diffuse pulmonary opacities, 4. Continue to hold Eliquis. 5. CT of the neck without any tracheal stenosis. I deflated the cuff today. Patient had no air leak suggesting some upper airway narrowing. 6. SCDs for DVT prophylaxis and hold off Lovenox. No further endotracheal bleeding seen but hemoglobin trending down. 7. PPI for stress ulcer prophylaxis. 8. Discussed with RN. Chart reviewed, imaging studies reviewed. 9. Currently sedation is off. She is not awake and not following commands yet. We will hold off on CPAP trials. 10. I been informed by the family that they would not recommend redo tracheostomy as she was not happy with previous tracheostomy. 11. We will be approaching the family in next few days and making some decisions. 05/08 1. cont vent support setting reviewed, FiO2, keep saturation 94% and above. ett bleeding improved 2. Continue empiric antibiotics. 3. Follow up chest x-rays reviewed Severe diffuse pulmonary opacities, 4. Continue to hold Eliquis. 5. CT of the neck without any subglottic stenosis. 6. SCDs for DVT prophylaxis and hold off Lovenox. No further endotracheal bleeding seen but hemoglobin trending down. 7. PPI for stress ulcer prophylaxis. 8. Discussed with RN. Chart reviewed, imaging studies reviewed. 9. We will wean sedation off. And assess her ability to tolerate CPAP trials 05/07 1. cont vent support setting reviewed, FiO2, keep saturation 94% and above. ett bleeding improved 2. Continue empiric antibiotics. 3. Follow up chest x-rays reviewed Severe diffuse pulmonary opacities, 4. Continue to hold Eliquis. We will ask Cardiology for any cardiac reason for her being on Eliquis. Question history of A. fib. 5. CT of the neck to rule out any subglottic stenosis. 6. SCDs for DVT prophylaxis and hold off Lovenox until endotracheal bleeding has completely resolved. 7. PPI for stress ulcer prophylaxis. 8. Discussed with RN. Chart reviewed, imaging studies reviewed. 05/06 1. cont vent support setting reviewed, FiO2, keep saturation 94% and above. ett bleeding improved minimal bleeding now 2. Continue empiric antibiotics. 3. Follow up chest x-rays reviewed Severe diffuse pulmonary opacities, decreased compared to prior. 4. Continue to hold Eliquis. We will ask Cardiology for any cardiac reason for her being on Eliquis. Question history of A. fib. 5. We may need a CT of the neck to rule out any subglottic stenosis. 6. SCDs for DVT prophylaxis and hold off Lovenox until endotracheal bleeding has completely resolved. 7. PPI for stress ulcer prophylaxis. 8. Discussed with RN. Chart reviewed, imaging studies reviewed. JEFFREY LYONS MD May 12, 2021 11:18
[2021-05-13] VITALS (24 sets, daily range): BP systolic 104–189; BP diastolic 59–95
[2021-05-13] MEDS: DEXMEDETOMIDINE 400 MCG in IV NORMAL SALINE 100ML 96 ML IV PRN ×6 (01:43→23:19)
[2021-05-13] MEDS: CEFEPIME HCL IV Push 1 GM VIAL. IVP SCH ×3 (06:00→21:46)
[2021-05-13 07:04] LABS: BASO # 0.1 x10^3/uL (0.0-0.2); BASO % 1 % (0-3); EOS # 0.3 x10^3/uL (0.0-0.7); EOS % 4 % (0-3); HEMATOCRIT 22.5 % (36.0-47.0); HEMOGLOBIN 7.3 g/dL (12.0-15.5); LYMPH # 2.2 x10^3/uL (1.0-4.8); LYMPH % 27 % (24-48); MEAN CORPUSCULAR HEMOGLOBIN 29 pg (25-35); MEAN CORPUSCULAR HGB CONC 33 g/dL (31-37); MEAN CORPUSCULAR VOLUME 88 fL (79-100); MONO # 0.7 x10^3/uL (0.0-1.1); MONO % 8 % (0-9); NEUT # 5.2 x10^3/uL (1.8-7.7); NEUT % 61 % (31-73); PLATELET COUNT 334 x10^3/uL (140-400); RED BLOOD COUNT 2.56 x10^6/uL (3.50-5.40); WHITE BLOOD COUNT 8.5 x10^3/uL (4.0-11.0)
[2021-05-13 07:14] LABS: ALBUMIN/GLOBULIN RATIO 0.5 (1.0-1.7); CALCIUM 7.7 mg/dL (8.5-10.1); CREATININE 0.5 mg/dL (0.6-1.0); GFR 124.6; POTASSIUM 3.3 mmol/L (3.5-5.1); TOTAL BILIRUBIN 0.3 mg/dL (0.2-1.0); TOTAL PROTEIN 5.7 g/dL (6.4-8.2)
[2021-05-13 07:27] LABS: BASE EXCESS ABG 4 mmol/L (-3-3); HCO3 ABG 28 mmol/L (21-28); PCO2 ABG 39 mmHg (35-46); PO2 ABG 80 mmHg (65-108); SAT O2 ABG 95 % (92-99)
[2021-05-13 07:30] LABS: FIO2 ABG 40% vent
[2021-05-13] MEDS: QUEtiapine 25 MG TABLET. PO SCH ×2 (08:25→20:10)
[2021-05-13] MEDS: PRIMIDONE 50 MG TABLET PO SCH (08:25)
[2021-05-13] MEDS: POTASSIUM CHLORIDE 20MEQ 100 ML IV SCH ×2 (08:25→10:23)
[2021-05-13] MEDS: CITALOPRAM 20 MG TABLET. PO SCH (08:25)
[2021-05-13] MEDS: PANTOPRAZOLE IV PUSH 40 MG VIAL. IVP SCH (08:25)
[2021-05-13] MEDS: ELECTROLYTE (ICU) PROTOCOL. MC SCH (09:00)
--- NOTE | 2021-05-13 09:11 | PDOC ---
PULMONARY PROGRESS NOTES DATE: 05/13/21 TIME: 09:05 Subjective Remains on assist control mode. Down to 40% FiO2. patient unable to clear secretions and unable to protect airway Vitals Vital Signs Date Time Temp Pulse Resp B/P (MAP) Pulse Ox O2 Delivery O2 Flow Rate FiO2 05/13/21 07:20 97 Ventilator 05/13/21 06:00 71 24 113/64 05/13/21 04:00 99.7 99.7 Comments ros unable to obtain intubated sedated no distress nc at rrr no accessory muscle use abd obese no rash Lungs: Other (Decreased breath sounds) Cardiovascular: S1, S2 Extremities: Other (1+) Skin: No Rashes Labs Laboratory Tests Test 05/12/21 05:45 05/12/21 07:35 05/13/21 06:30 05/13/21 07:20 Sodium Level 140 mmol/L (136-145) 143 mmol/L (136-145) Potassium Level 3.8 mmol/L (3.5-5.1) 3.3 mmol/L (3.5-5.1) Chloride Level 106 mmol/L (98-107) 105 mmol/L (98-107) Carbon Dioxide Level 29 mmol/L (21-32) 27 mmol/L (21-32) Anion Gap 5 (6-14) 11 (6-14) Blood Urea Nitrogen 18 mg/dL (7-20) 15 mg/dL (7-20) Creatinine 0.5 mg/dL (0.6-1.0) 0.5 mg/dL (0.6-1.0) Estimated GFR (Cockcroft-Gault) 124.6 124.6 Glucose Level 135 mg/dL (70-99) 151 mg/dL (70-99) Calcium Level 7.7 mg/dL (8.5-10.1) 7.7 mg/dL (8.5-10.1) O2 Saturation 96 % (92-99) 95 % (92-99) Arterial Blood pH 7.49 (7.35-7.45) 7.46 (7.35-7.45) Arterial Blood pCO2 at Patient Temp 37 mmHg (35-46) 39 mmHg (35-46) Arterial Blood pO2 at Patient Temp 90 mmHg (65-108) 80 mmHg (65-108) Arterial Blood HCO3 28 mmol/L (21-28) 28 mmol/L (21-28) Arterial Blood Base Excess 4 mmol/L (-3-3) 4 mmol/L (-3-3) FiO2 40 40% vent White Blood Count 8.5 x10^3/uL (4.0-11.0) Red Blood Count 2.56 x10^6/uL (3.50-5.40) Hemoglobin 7.3 g/dL (12.0-15.5) Hematocrit 22.5 % (36.0-47.0) Mean Corpuscular Volume 88 fL (79-100) Mean Corpuscular Hemoglobin 29 pg (25-35) Mean Corpuscular Hemoglobin Concent 33 g/dL (31-37) Red Cell Distribution Width 15.0 % (11.5-14.5) Platelet Count 334 x10^3/uL (140-400) Neutrophils (%) (Auto) 61 % (31-73) Lymphocytes (%) (Auto) 27 % (24-48) Monocytes (%) (Auto) 8 % (0-9) Eosinophils (%) (Auto) 4 % (0-3) Basophils (%) (Auto) 1 % (0-3) Neutrophils # (Auto) 5.2 x10^3/uL (1.8-7.7) Lymphocytes # (Auto) 2.2 x10^3/uL (1.0-4.8) Monocytes # (Auto) 0.7 x10^3/uL (0.0-1.1) Eosinophils # (Auto) 0.3 x10^3/uL (0.0-0.7) Basophils # (Auto) 0.1 x10^3/uL (0.0-0.2) BUN/Creatinine Ratio 30 (6-20) Total Bilirubin 0.3 mg/dL (0.2-1.0) Aspartate Amino Transf (AST/SGOT) 50 U/L (15-37) Alanine Aminotransferase (ALT/SGPT) 125 U/L (14-59) Alkaline Phosphatase 147 U/L (46-116) Total Protein 5.7 g/dL (6.4-8.2) Albumin 2.0 g/dL (3.4-5.0) Albumin/Globulin Ratio 0.5 (1.0-1.7) Laboratory Tests Test 05/13/21 06:30 05/13/21 07:20 White Blood Count 8.5 x10^3/uL (4.0-11.0) Red Blood Count 2.56 x10^6/uL (3.50-5.40) Hemoglobin 7.3 g/dL (12.0-15.5) Hematocrit 22.5 % (36.0-47.0) Mean Corpuscular Volume 88 fL (79-100) Mean Corpuscular Hemoglobin 29 pg (25-35) Mean Corpuscular Hemoglobin Concent 33 g/dL (31-37) Red Cell Distribution Width 15.0 % (11.5-14.5) Platelet Count 334 x10^3/uL (140-400) Neutrophils (%) (Auto) 61 % (31-73) Lymphocytes (%) (Auto) 27 % (24-48) Monocytes (%) (Auto) 8 % (0-9) Eosinophils (%) (Auto) 4 % (0-3) Basophils (%) (Auto) 1 % (0-3) Neutrophils # (Auto) 5.2 x10^3/uL (1.8-7.7) Lymphocytes # (Auto) 2.2 x10^3/uL (1.0-4.8) Monocytes # (Auto) 0.7 x10^3/uL (0.0-1.1) Eosinophils # (Auto) 0.3 x10^3/uL (0.0-0.7) Basophils # (Auto) 0.1 x10^3/uL (0.0-0.2) Sodium Level 143 mmol/L (136-145) Potassium Level 3.3 mmol/L (3.5-5.1) Chloride Level 105 mmol/L (98-107) Carbon Dioxide Level 27 mmol/L (21-32) Anion Gap 11 (6-14) Blood Urea Nitrogen 15 mg/dL (7-20) Creatinine 0.5 mg/dL (0.6-1.0) Estimated GFR (Cockcroft-Gault) 124.6 BUN/Creatinine Ratio 30 (6-20) Glucose Level 151 mg/dL (70-99) Calcium Level 7.7 mg/dL (8.5-10.1) Total Bilirubin 0.3 mg/dL (0.2-1.0) Aspartate Amino Transf (AST/SGOT) 50 U/L (15-37) Alanine Aminotransferase (ALT/SGPT) 125 U/L (14-59) Alkaline Phosphatase 147 U/L (46-116) Total Protein 5.7 g/dL (6.4-8.2) Albumin 2.0 g/dL (3.4-5.0) Albumin/Globulin Ratio 0.5 (1.0-1.7) O2 Saturation 95 % (92-99) Arterial Blood pH 7.46 (7.35-7.45) Arterial Blood pCO2 at Patient Temp 39 mmHg (35-46) Arterial Blood pO2 at Patient Temp 80 mmHg (65-108) Arterial Blood HCO3 28 mmol/L (21-28) Arterial Blood Base Excess 4 mmol/L (-3-3) FiO2 40% vent Medications Active Scripts Medications Dose Route/Sig Max Daily Dose Days Date Category Dose Instructions Easy Neb Compressor Nebulizer (Nebulizer and Compressor) 1 Each Each Each MC PRN PRN 05/01/21 Rx Use with albuterol as needed every 4 hours Albuterol Sulfate Neb Soln (Albuterol Sulfate) 2.5 Mg/3 Ml Vial.neb 1 Vial NEB PRN Q4HRS PRN 30 05/01/21 Rx Levofloxacin 750 Mg Tablet 1 Tab PO DAILY 5 05/01/21 Rx Seroquel (Quetiapine Fumarate) 25 Mg Tablet 25 Mg PO BID 04/26/21 Reported Mysoline (Primidone) 50 Mg Tablet 50 Mg PO DAILY 04/26/21 Reported Escitalopram Oxalate 20 Mg Tablet 20 Mg PO DAILY 03/26/21 Reported Omeprazole 20 Mg Capsule.dr 20 Mg PO DAILY 03/26/21 Reported Eliquis (Apixaban) 5 Mg Tablet 5 Mg PO BID 03/26/21 Reported Lasix (Furosemide) 40 Mg Tablet 40 Mg PO DAILY 03/26/[address] neck 05/07/2021 No definite tracheal stenosis seen. Chest x-ray reviewed 05/07/2021 Diffuse bilateral lung infiltrates reviewed cxr 05/05 ett ok Severe diffuse pulmonary opacities, decreased compared to prior. Impression . 1. Acute hypoxic respiratory failure secondary to likely hypoxic respiratory arrest leading to cardiac arrest.This is her second intubation in a week, ? tracheal or sub- glottic stenosis contributing to mucous plug/ hypoxic respiratory arrest. 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 Now, she has progressive worsening of the infiltrates, especially in the upper lobes. This could be related to a component of aspiration pneumonia. 2. The patient with underlying history of COVID-19 viral pneumonia in late November and early December with chronic interstitial infiltrates. She required another hospitalization few weeks ago with respiratory failure, but was successfully extubated. 3. Status post tracheostomy followed by decannulation.. 4. Cannot exclude the possibility of subglottic stenosis contributing to respiratory arrest. 5. Underlying obesity. 6. Abnormal CT chest as discussed above. 7. Bleeding around the endotracheal tube. She had hemoptysis before coming to the hospital. Could be contributed by pneumonia as well as use of Eliquis at home. Bleeding has resolved. 8. Anemia 9. Left upper extremity weakness. Cannot exclude ischemic CVA, ct head neg Page of Plan . 05/13 1. cont vent support setting reviewed, FiO2, keep saturation 94% and above. 2. Continue empiric antibiotics. 3. Follow up chest x-rays reviewed Severe diffuse pulmonary opacities, 4. Continue to hold Eliquis. Follow-up hemoglobin still low. 5. CT of the neck without any tracheal stenosis. I deflated the cuff again today. Patient had some air leak suggesting mild improvement upper airway narrowing. 6. SCDs for DVT prophylaxis and hold off Lovenox. No further endotracheal bleeding seen but hemoglobin trending down. 7. PPI for stress ulcer prophylaxis. 8. Discussed with RN. Chart reviewed, imaging studies reviewed. 9. Currently sedation is off. Minimally awake but very weak. We will hold off on CPAP trials. 10. I had a long discussion with patient's son at the bedside05/11 I did ex plain to him that her 2 respiratory arrest recently are probably caused by inability to clear mucus. She probably may have upper airway narrowing/subglottic stenosis. surgical consult for tracheostomy placement Discussed with RN and RT. 05/12 1. cont vent support setting reviewed, FiO2, keep saturation 94% and above. ett bleeding improved 2. Continue empiric antibiotics. 3. Follow up chest x-rays reviewed Severe diffuse pulmonary opacities, 4. Continue to hold Eliquis. Follow-up hemoglobin still low. 5. CT of the neck without any tracheal stenosis. I deflated the cuff again today. Patient had some air leak suggesting mild improvement upper airway narrowing. 6. SCDs for DVT prophylaxis and hold off Lovenox. No further endotracheal bleeding seen but hemoglobin trending down. 7. PPI for stress ulcer prophylaxis. 8. Discussed with RN. Chart reviewed, imaging studies reviewed. 9. Currently sedation is off. Minimally awake but very weak. We will hold off on CPAP trials. 10. I had a long discussion with patient's son at the bedside05/11 I did explain to him that her 2 respiratory arrest recently are probably caused by inability to clear mucus. She probably may have upper airway narrowing/subglottic stenosis. I did explain to them that if she does not do well she would benefit from tracheostomy. Family agrees for tracheostomy. Discussed with RN and RT. 05/11 1. cont vent support setting reviewed, FiO2, keep saturation 94% and above. ett bleeding improved 2. Continue empiric antibiotics. 3. Follow up chest x-rays reviewed Severe diffuse pulmonary opacities, 4. Continue to hold Eliquis. Follow-up hemoglobin today. 5. CT of the neck without any tracheal stenosis. I deflated the cuff again today. Patient had some air leak suggesting mild improvement upper airway narrowing. 6. SCDs for DVT prophylaxis and hold off Lovenox. No further endotracheal b leeding seen but hemoglobin trending down. 7. PPI for stress ulcer prophylaxis. 8. Discussed with RN. Chart reviewed, imaging studies reviewed. 9. Currently sedation is off. Minimally awake but very weak. We will hold off on CPAP trials. 10. I had a long discussion with patient's son at the bedside again today. I did explain to him that her 2 respiratory arrest recently are probably caused by inability to clear mucus. She probably may have upper airway narrowing/subglottic stenosis. The family is going to make a decision about which direction they want to go. I did explain to them that if she does not do well she would benefit from tracheostomy. Family will also let me know if they would rather prefer not to do tracheostomy. In that case I would recommend that we should not reintubate her in case of another respiratory arrest. She is weak in left upper extremity. We may need CT head as well Discussed with RN and RT. Total critical care time 30-minute 05/10 1. cont vent support setting reviewed, FiO2, keep saturation 94% and above. ett bleeding improved 2. Continue empiric antibiotics. 3. Follow up chest x-rays reviewed Severe diffuse pulmonary opacities, 4. Continue to hold Eliquis. 5. CT of the neck without any tracheal stenosis. I deflated the cuff again today. Patient had no air leak suggesting some upper airway narrowing. 6. SCDs for DVT prophylaxis and hold off Lovenox. No further endotracheal bleeding seen but hemoglobin trending down. 7. PPI for stress ulcer prophylaxis. 8. Discussed with RN. Chart reviewed, imaging studies reviewed. 9. Currently sedation is off. She is not awake and not following commands yet. We will hold off on CPAP trials. 10. I had a long discussion with patient's son at the bedside. I did explain to him that her 2 respiratory arrest recently are probably caused by inability to clear mucus. She probably may have upper airway narrowing/subglottic stenosis. The family is going to make a decision about which direction they want to go. I did explain to them that if she does not do well she would benefit from tracheostomy. Family will also let me know if they would rather prefer not to do tracheostomy. In that case I would recommend that we should not reintubate her in case of another respiratory arrest Discussed with RN and RT. Total critical care time 30-minute 05/09 1. cont vent support setting reviewed, FiO2, keep saturation 94% and above. ett bleeding improved 2. Continue empiric antibiotics. 3. Follow up chest x-rays reviewed Severe diffuse pulmonary opacities, 4. Continue to hold Eliquis. 5. CT of the neck without any tracheal stenosis. I deflated the cuff today. Patient had no air leak suggesting some upper airway narrowing. 6. SCDs for DVT prophylaxis and hold off Lovenox. No further endotracheal bleeding seen but hemoglobin trending down. 7. PPI for stress ulcer prophylaxis. 8. Discussed with RN. Chart reviewed, imaging studies reviewed. 9. Currently sedation is off. She is not awake and not following commands yet. We will hold off on CPAP trials. 10. I been informed by the family that they would not recommend redo tracheostomy as she was not happy with previous tracheostomy. 11. We will be approaching the family in next few days and making some decisions. 05/08 1. cont vent support setting reviewed, FiO2, keep saturation 94% and above. ett bleeding improved 2. Continue empiric antibiotics. 3. Follow up chest x-rays reviewed Severe diffuse pulmonary opacities, 4. Continue to hold Eliquis. 5. CT of the neck without any subglottic stenosis. 6. SCDs for DVT prophylaxis and hold off Lovenox. No further endotracheal b leeding seen but hemoglobin trending down. 7. PPI for stress ulcer prophylaxis. 8. Discussed with RN. Chart reviewed, imaging studies reviewed. 9. We will wean sedation off. And assess her ability to tolerate CPAP trials 05/07 1. cont vent support setting reviewed, FiO2, keep saturation 94% and above. ett bleeding improved 2. Continue empiric antibiotics. 3. Follow up chest x-rays reviewed Severe diffuse pulmonary opacities, 4. Continue to hold Eliquis. We will ask Cardiology for any cardiac reason for her being on Eliquis. Question history of A. fib. 5. CT of the neck to rule out any subglottic stenosis. 6. SCDs for DVT prophylaxis and hold off Lovenox until endotracheal bleeding has completely resolved. 7. PPI for stress ulcer prophylaxis. 8. Discussed with RN. Chart reviewed, imaging studies reviewed. 05/06 1. cont vent support setting reviewed, FiO2, keep saturation 94% and above. ett bleeding improved minimal bleeding now 2. Continue empiric antibiotics. 3. Follow up chest x-rays reviewed Severe diffuse pulmonary opacities, decreased compared to prior. 4. Continue to hold Eliquis. We will ask Cardiology for any cardiac reason for her being on Eliquis. Question history of A. fib. 5. We may need a CT of the neck to rule out any subglottic stenosis. 6. SCDs for DVT prophylaxis and hold off Lovenox until endotracheal bleeding has completely resolved. 7. PPI for stress ulcer prophylaxis. 8. Discussed with RN. Chart reviewed, imaging studies reviewed. JEFFREY LYONS MD May 13, 2021 09:10
--- NOTE | 2021-05-13 11:18 | PDOC ---
GENERAL General: Patient examined chart reviewed no overnight events noted. She does not appear to be making much progress with her extensive lung disease. Appreciate critical care pulmonary support. We will continue current management without change today. Problems: (1) Chronic respiratory failure with hypoxia and hypercapnia (2) Pneumonia (3) COVID-19 estela sinclair manifesting chronic dyspnea VITAL SIGNS Vital Signs/I&O: Vital Signs Date Time Temp Pulse Resp B/P (MAP) Pulse Ox O2 Delivery O2 Flow Rate FiO2 05/13/21 10:31 97 Ventilator 05/13/21 06:00 71 24 113/64 05/13/21 04:00 99.7 99.7 I & O 05/12/21 05/12/21 05/13/21 14:59 22:59 06:59 Intake Total 200 ml 1144 ml 300 ml Output Total 600 ml 485 ml 100 ml Balance -400 ml 659 ml 200 ml In general patient is more awake this morning little agitated trying to take her blankets off Generalized anasarca throughout is noted Chest bilateral equal air entry though diminished throughout no crackles or wheezes are noted Heart S1-S2 normal tachycardic no murmurs or gallops are noted Abdomen soft nontender nondistended no masses organomegaly Extremity exam is notable for significant edema throughout ALLERGIES Allergies: Allergies Coded Allergies Type Severity Reaction Last Updated Verified Penicillins Allergy Intermediate EDEMA 03/26/21 No latex Allergy Intermediate 03/26/21 Yes azithromycin Adverse Reaction Intermediate Anxiety 04/25/21 No MEDS Medications: Current Medications Medications (Trade) Dose Ordered Sig/Qing Start Time Stop Time Status Last Admin Dose Admin Apixaban (Eliquis) 5 mg BID 05/03/21 21:00 05/03/21 15:54 DC Calcium Carbonate/ Glycine (Tums) 500 mg PRN Q3HRS PRN 05/03/21 12:00 Calcium Chloride (Calcium Chloride) 1,000 mg STK-MED ONCE 05/03/21 11:00 05/04/21 12:23 DC Cefepime HCl (Maxipime) 1 gm Q8HRS 05/03/21 22:00 05/13/21 06:00 Citalopram Hydrobromide (CeleXA) 20 mg DAILY 05/04/21 09:00 05/13/21 08:25 Dexmedetomidine HCl 400 mcg/ Sodium Chloride 100 ml @ 5 mls/hr CONT PRN 05/09/21 11:00 05/13/21 08:24 Dextrose (Dextrose 50%-Water Syringe) 12.5 gm PRN Q15MIN PRN 05/07/21 08:00 Epinephrine HCl (EPINEPHrine SYRINGE) 3 mg STK-MED ONCE 05/03/21 11:00 05/04/21 12:23 DC Fentanyl Citrate 30 ml @ 2.5 mls/hr CONT PRN 05/03/21 12:45 05/08/21 06:54 Info (CONTRAST GIVEN -- Rx MONITORING) 1 each PRN DAILY PRN 05/03/21 13:00 05/05/21 12:59 DC Info (Icu Electrolyte Protocol) 1 ea DAILY 05/04/21 09:00 05/13/21 09:00 Insulin Human Lispro (HumaLOG) 0-7 UNITS Q6HRS 05/07/21 12:00 05/10/21 11:00 DC Iohexol (Omnipaque 350 Mg/ml) 100 ml 1X ONCE 05/03/21 13:00 05/03/21 13:01 DC 05/03/21 12:58 Magnesium Sulfate 50 ml @ 25 mls/hr 1X ONCE 05/03/21 12:00 05/03/21 13:59 DC 05/03/21 15:00 Methylprednisolone Sodium Succinate (SOLU-Medrol 125MG VIAL) 125 mg 1X ONCE 05/03/21 15:30 05/03/21 15:31 DC 05/03/21 15:56 Metoprolol Tartrate (Lopressor Vial) 5 mg PRN Q6HRS PRN 05/09/21 03:45 05/09/21 04:52 Midazolam HCl (Versed) 5 mg 1X ONCE 05/11/21 11:30 05/11/21 11:32 DC 05/11/21 11:34 Norepinephrine Bitartrate 8 mg/ Dextrose 258 ml @ 21.672 mls/ hr CONT PRN 05/07/21 11:30 05/07/21 11:40 Ondansetron HCl (Zofran) 4 mg PRN Q6HRS PRN 05/03/21 12:00 Pantoprazole Sodium (PROTONIX VIAL for IV PUSH) 40 mg DAILYAC 05/04/21 07:30 05/13/21 08:25 Piperacillin Sod/ Tazobactam Sod (Zosyn Per Pharmacy) 1 each PRN DAILY PRN 05/03/21 15:15 05/03/21 15:07 DC Potassium Bicarbonate (Potassium Effervescent Tablet) 40 meq 1X ONCE 05/11/21 08:30 05/11/21 08:31 DC 05/11/21 10:55 Potassium Chloride/Water 100 ml @ 100 mls/hr Q1H 05/13/21 08:30 05/13/21 10:29 DC 05/13/21 10:23 Primidone (Mysoline) 50 mg DAILY 05/04/21 09:00 05/13/21 08:25 Propofol 100 ml @ 3 mls/hr CONT PRN 05/03/21 12:45 05/08/21 22:06 Propofol (Diprivan) 200 mg TITRATE ONCE 05/03/21 11:45 05/03/21 11:46 UNV Quetiapine Fumarate (SEROquel) 25 mg BID 05/03/21 21:00 05/13/21 08:25 Scopolamine (Transderm-Scop) 1 patch Q3DAYS 05/09/21 10:00 05/12/21 08:51 Sodium Bicarbonate (Sodium Bicarb Adult 8.4% Syr) 50 meq STK-MED ONCE 05/03/21 11:00 05/04/21 12:23 DC Sodium Chloride (Normal Saline Flush) 3 ml QSHIFT PRN 05/03/21 12:00 Vancomycin HCl (Vanco Per Pharmacy) 1 each PRN DAILY PRN 05/03/21 15:15 05/11/21 14:19 DC 05/11/21 09:00 Vancomycin HCl (Vancomycin Trough Level) 1 each 1X ONCE 05/09/21 11:30 05/09/21 11:31 DC Vancomycin HCl 1.25 gm/Sodium Chloride 250 ml @ 167 mls/hr Q12H 05/10/21 12:00 05/11/21 14:19 DC 05/11/21 11:34 Vancomycin HCl 1.5 gm/Sodium Chloride 500 ml @ 250 mls/hr 1X ONCE 05/03/21 11:45 05/03/21 13:44 UNV Vancomycin HCl 1 gm/Sodium Chloride 250 ml @ 250 mls/hr Q12H 05/04/21 00:00 05/10/21 10:46 DC 05/10/21 00:06 Vancomycin HCl 2 gm/Sodium Chloride 500 ml @ 250 mls/hr 1X ONCE 05/03/21 12:00 05/03/21 13:59 DC 05/03/21 12:00 Vecuronium Tignall (Norcuron Bolus) 6 mg PRN 1X PRN 05/03/21 12:45 05/04/21 12:44 DC Current Medications Medications (Trade) Dose Ordered Sig/Qing Route PRN Reason Start Time Stop Time Status Last Admin Dose Admin Potassium Chloride/Water 100 ml @ 100 mls/hr Q1H IV 05/13/21 08:30 05/13/21 10:29 DC 05/13/21 10:23 LAB Lab: Laboratory Tests Test 05/13/21 06:30 05/13/21 07:20 White Blood Count 8.5 x10^3/uL (4.0-11.0) Red Blood Count 2.56 x10^6/uL (3.50-5.40) L Hemoglobin 7.3 g/dL (12.0-15.5) L Hematocrit 22.5 % (36.0-47.0) L Mean Corpuscular Volume 88 fL (79-100) Mean Corpuscular Hemoglobin 29 pg (25-35) Mean Corpuscular Hemoglobin Concent 33 g/dL (31-37) Red Cell Distribution Width 15.0 % (11.5-14.5) H Platelet Count 334 x10^3/uL (140-400) Neutrophils (%) (Auto) 61 % (31-73) Lymphocytes (%) (Auto) 27 % (24-48) Monocytes (%) (Auto) 8 % (0-9) Eosinophils (%) (Auto) 4 % (0-3) H Basophils (%) (Auto) 1 % (0-3) Neutrophils # (Auto) 5.2 x10^3/uL (1.8-7.7) Lymphocytes # (Auto) 2.2 x10^3/uL (1.0-4.8) Monocytes # (Auto) 0.7 x10^3/uL (0.0-1.1) Eosinophils # (Auto) 0.3 x10^3/uL (0.0-0.7) Basophils # (Auto) 0.1 x10^3/uL (0.0-0.2) Sodium Level 143 mmol/L (136-145) Potassium Level 3.3 mmol/L (3.5-5.1) L Chloride Level 105 mmol/L (98-107) Carbon Dioxide Level 27 mmol/L (21-32) Anion Gap 11 (6-14) Blood Urea Nitrogen 15 mg/dL (7-20) Creatinine 0.5 mg/dL (0.6-1.0) L Estimated GFR (Cockcroft-Gault) 124.6 BUN/Creatinine Ratio 30 (6-20) H Glucose Level 151 mg/dL (70-99) H Calcium Level 7.7 mg/dL (8.5-10.1) L Total Bilirubin 0.3 mg/dL (0.2-1.0) Aspartate Amino Transferase (AST) 50 U/L (15-37) H Alanine Aminotransferase (ALT) 125 U/L (14-59) H Alkaline Phosphatase 147 U/L (46-116) H Total Protein 5.7 g/dL (6.4-8.2) L Albumin 2.0 g/dL (3.4-5.0) L Albumin/Globulin Ratio 0.5 (1.0-1.7) L O2 Saturation 95 % (92-99) Arterial Blood pH 7.46 (7.35-7.45) H Arterial Blood pCO2 at Patient Temp 39 mmHg (35-46) Arterial Blood pO2 at Patient Temp 80 mmHg (65-108) Arterial Blood HCO3 28 mmol/L (21-28) Arterial Blood Base Excess 4 mmol/L (-3-3) H FiO2 40% vent Laboratory Tests 05/13/21 06:30 Laboratory Tests 05/13/21 06:30 ASSESSMENT & PLAN A&P Plan as noted above This note was created using [employer] and may have omissions and/or errors due to the nature of real-time voice machine operator assistant. Justifications for Admission Other Justification DEEDEE VILLANUEVA MD May 13, 2021 11:18
--- NOTE | 2021-05-13 12:09 | PDOC ---
CARDIOLOGY PROGRESS NOTE SUBJECTIVE: No new events overnight. The patient is alert and oriented today and is responding appropriately. She denies any chest pain. Plans are for tracheostomy in the near future. OBJECTIVE: Vital Signs/I&O: Vital Signs Date Time Temp Pulse Resp B/P (MAP) Pulse Ox O2 Delivery O2 Flow Rate FiO2 05/13/21 10:31 97 Ventilator 05/13/21 06:00 71 24 113/64 05/13/21 04:00 99.7 99.7 I & O 05/12/21 05/12/21 05/13/21 15:00 23:00 07:00 Intake Total 200 ml 1144 ml 300 ml Output Total 600 ml 485 ml 100 ml Balance -400 ml 659 ml 200 ml Objective: The patient appeared well nourished and normally developed. Head exam is notable for significant secretions. She has significant edema of her tongue. Lungs are clear to auscultation and percussion. Cardiac exam reveals the PMI to be normally sized and situated. Rhythm is regular. First and second heart sounds normal. No murmurs, rubs or gallops. Abdominal exam reveals normal bowel sounds, no masses, no organomegaly and no aortic enlargement. Extremities are nonedematous and both femoral and pedal pulses are normal. Msk: No traumua Neuro: No focal deficits CURRENT MEDICATIONS: No significant cardiovascular medications DIAGNOSTIC TESTING: Telemetry is unremarkable Echocardiogram is pending Labs: Laboratory Tests 05/13/21 06:30 Laboratory Tests Test 05/13/21 06:30 05/13/21 07:20 White Blood Count 8.5 x10^3/uL (4.0-11.0) Red Blood Count 2.56 x10^6/uL (3.50-5.40) L Hemoglobin 7.3 g/dL (12.0-15.5) L Hematocrit 22.5 % (36.0-47.0) L Mean Corpuscular Volume 88 fL (79-100) Mean Corpuscular Hemoglobin 29 pg (25-35) Mean Corpuscular Hemoglobin Concent 33 g/dL (31-37) Red Cell Distribution Width 15.0 % (11.5-14.5) H Platelet Count 334 x10^3/uL (140-400) Neutrophils (%) (Auto) 61 % (31-73) Lymphocytes (%) (Auto) 27 % (24-48) Monocytes (%) (Auto) 8 % (0-9) Eosinophils (%) (Auto) 4 % (0-3) H Basophils (%) (Auto) 1 % (0-3) Neutrophils # (Auto) 5.2 x10^3/uL (1.8-7.7) Lymphocytes # (Auto) 2.2 x10^3/uL (1.0-4.8) Monocytes # (Auto) 0.7 x10^3/uL (0.0-1.1) Eosinophils # (Auto) 0.3 x10^3/uL (0.0-0.7) Basophils # (Auto) 0.1 x10^3/uL (0.0-0.2) Sodium Level 143 mmol/L (136-145) Potassium Level 3.3 mmol/L (3.5-5.1) L Chloride Level 105 mmol/L (98-107) Carbon Dioxide Level 27 mmol/L (21-32) Anion Gap 11 (6-14) Blood Urea Nitrogen 15 mg/dL (7-20) Creatinine 0.5 mg/dL (0.6-1.0) L Estimated GFR (Cockcroft-Gault) 124.6 BUN/Creatinine Ratio 30 (6-20) H Glucose Level 151 mg/dL (70-99) H Calcium Level 7.7 mg/dL (8.5-10.1) L Total Bilirubin 0.3 mg/dL (0.2-1.0) Aspartate Amino Transf (AST/SGOT) 50 U/L (15-37) H Alkaline Phosphatase 147 U/L (46-116) H Total Protein 5.7 g/dL (6.4-8.2) L Albumin 2.0 g/dL (3.4-5.0) L Albumin/Globulin Ratio 0.5 (1.0-1.7) L O2 Saturation 95 % (92-99) Arterial Blood pH 7.46 (7.35-7.45) H Arterial Blood pCO2 at Patient Temp 39 mmHg (35-46) Arterial Blood pO2 at Patient Temp 80 mmHg (65-108) Arterial Blood HCO3 28 mmol/L (21-28) Arterial Blood Base Excess 4 mmol/L (-3-3) H FiO2 40% vent ASSESSMENT: 1. Out of hospital cardiac arrest, presumed to be secondary to aspiration and hypoxia 2. History of Eliquis use, etiology is unclear 3. Acute on chronic respiratory failure PLAN: 1. We will plan for an echocardiogram prior to discharge to ensure that she has stable LV function 2. Agree with tracheostomy placement 3. She will need to follow-up with her PCP regarding their need for Eliquis as she currently is quite anemic and given that she is in sinus rhythm and does not have any significant history of stroke we will defer any anticoagulation. Supportive care. Justicifation of Admission Dx: Justifications for Admission: Justification of Admission Dx: Yes STONE BUSBY MD May 13, 2021 12:08
[2021-05-13] MEDS: METOPROLOL IV PUSH 5 MG/5 ML VIAL. IVP PRN (12:49)
[2021-05-14] VITALS (29 sets, daily range): BP systolic 82–197; BP diastolic 47–98
[2021-05-14] MEDS: DEXMEDETOMIDINE 400 MCG in IV NORMAL SALINE 100ML 96 ML IV PRN ×6 (02:38→21:11)
[2021-05-14 05:21] LABS: BASO # 0.1 x10^3/uL (0.0-0.2); BASO % 1 % (0-3); EOS # 0.4 x10^3/uL (0.0-0.7); EOS % 5 % (0-3); HEMATOCRIT 21.9 % (36.0-47.0); LYMPH # 1.5 x10^3/uL (1.0-4.8); LYMPH % 21 % (24-48); MEAN CORPUSCULAR HEMOGLOBIN 29 pg (25-35); MEAN CORPUSCULAR HGB CONC 32 g/dL (31-37); MEAN CORPUSCULAR VOLUME 89 fL (79-100); MONO # 0.7 x10^3/uL (0.0-1.1); MONO % 9 % (0-9); NEUT # 4.9 x10^3/uL (1.8-7.7); NEUT % 65 % (31-73); PLATELET COUNT 330 x10^3/uL (140-400); RED BLOOD COUNT 2.46 x10^6/uL (3.50-5.40); RED CELL DISTRIBUTION WIDTH 14.7 % (11.5-14.5); WHITE BLOOD COUNT 7.5 x10^3/uL (4.0-11.0)
[2021-05-14 05:37] LABS: ALBUMIN 2.1 g/dL (3.4-5.0); ALBUMIN/GLOBULIN RATIO 0.6 (1.0-1.7); CREATININE 0.5 mg/dL (0.6-1.0); GFR 124.6; POTASSIUM 3.6 mmol/L (3.5-5.1); TOTAL BILIRUBIN 0.3 mg/dL (0.2-1.0); TOTAL PROTEIN 5.7 g/dL (6.4-8.2)
[2021-05-14] MEDS: CEFEPIME HCL IV Push 1 GM VIAL. IVP SCH ×2 (06:00→14:23)
--- NOTE | 2021-05-14 06:23 | RAD ---
XR CHEST 1V Clinical Indication: Reason: RF / Comparison: AP chest, May 07, 2021. Findings: Endotracheal tube tip is at the level the clavicles. Enteric tube remains in the stomach. Right IJ ce ntral line tip is in the upper right atrium. The cardiomediastinal silhouette is stable. Diffuse bilateral pulmonary opacities are unchanged There is no pneumothorax. No pleural effusion is appreciated. No acute bone abnormality. IMPRESSION: 1. Life support devices as above. 2. Bilateral diffuse pulmonary opacities are unchanged. Electronically signed by: Ed Ferguson MD (05/14/2021 6:21 AM) [facility]
[2021-05-14 07:57] LABS: BASE EXCESS ABG 2 mmol/L (-3-3); HCO3 ABG 26 mmol/L (21-28); PCO2 ABG 37 mmHg (35-46); PO2 ABG 85 mmHg (65-108); SAT O2 ABG 96 % (92-99)
[2021-05-14 08:00] LABS: FIO2 ABG 40
[2021-05-14] MEDS: PANTOPRAZOLE IV PUSH 40 MG VIAL. IVP SCH (08:05)
[2021-05-14] MEDS: QUEtiapine 25 MG TABLET. PO SCH ×2 (08:05→21:11)
[2021-05-14] MEDS: CITALOPRAM 20 MG TABLET. PO SCH (08:05)
[2021-05-14] MEDS: ELECTROLYTE (ICU) PROTOCOL. MC SCH (08:06)
[2021-05-14] MEDS: PRIMIDONE 50 MG TABLET PO SCH (08:06)
--- NOTE | 2021-05-14 10:50 | PDOC ---
PULMONARY PROGRESS NOTES DATE: 05/14/21 TIME: 10:47 Subjective Remains on assist control mode. Down to 40% FiO2. patient unable to clear secretions and unable to protect airway Vitals Vital Signs Date Time Temp Pulse Resp B/P (MAP) Pulse Ox O2 Delivery O2 Flow Rate FiO2 05/14/21 08:00 Mechanical Ventilator 05/14/21 07:30 99 05/14/21 06:00 86 24 155/76 05/14/21 04:00 98.9 98.9 Comments ros unable to obtain intubated sedated no distress nc at rrr no accessory muscle use abd obese no rash Lungs: Other (Decreased breath sounds) Cardiovascular: S1, S2 Extremities: Other (1+) Skin: No Rashes Labs Laboratory Tests Test 05/13/21 06:30 05/13/21 07:20 05/14/21 05:11 05/14/21 07:30 White Blood Count 8.5 x10^3/uL (4.0-11.0) 7.5 x10^3/uL (4.0-11.0) Red Blood Count 2.56 x10^6/uL (3.50-5.40) 2.46 x10^6/uL (3.50-5.40) Hemoglobin 7.3 g/dL (12.0-15.5) 7.0 g/dL (12.0-15.5) Hematocrit 22.5 % (36.0-47.0) 21.9 % (36.0-47.0) Mean Corpuscular Volume 88 fL (79-100) 89 fL (79-100) Mean Corpuscular Hemoglobin 29 pg (25-35) 29 pg (25-35) Mean Corpuscular Hemoglobin Concent 33 g/dL (31-37) 32 g/dL (31-37) Red Cell Distribution Width 15.0 % (11.5-14.5) 14.7 % (11.5-14.5) Platelet Count 334 x10^3/uL (140-400) 330 x10^3/uL (140-400) Neutrophils (%) (Auto) 61 % (31-73) 65 % (31-73) Lymphocytes (%) (Auto) 27 % (24-48) 21 % (24-48) Monocytes (%) (Auto) 8 % (0-9) 9 % (0-9) Eosinophils (%) (Auto) 4 % (0-3) 5 % (0-3) Basophils (%) (Auto) 1 % (0-3) 1 % (0-3) Neutrophils # (Auto) 5.2 x10^3/uL (1.8-7.7) 4.9 x10^3/uL (1.8-7.7) Lymphocytes # (Auto) 2.2 x10^3/uL (1.0-4.8) 1.5 x10^3/uL (1.0-4.8) Monocytes # (Auto) 0.7 x10^3/uL (0.0-1.1) 0.7 x10^3/uL (0.0-1.1) Eosinophils # (Auto) 0.3 x10^3/uL (0.0-0.7) 0.4 x10^3/uL (0.0-0.7) Basophils # (Auto) 0.1 x10^3/uL (0.0-0.2) 0.1 x10^3/uL (0.0-0.2) Sodium Level 143 mmol/L (136-145) 141 mmol/L (136-145) Potassium Level 3.3 mmol/L (3.5-5.1) 3.6 mmol/L (3.5-5.1) Chloride Level 105 mmol/L (98-107) 104 mmol/L (98-107) Carbon Dioxide Level 27 mmol/L (21-32) 28 mmol/L (21-32) Anion Gap 11 (6-14) 9 (6-14) Blood Urea Nitrogen 15 mg/dL (7-20) 15 mg/dL (7-20) Creatinine 0.5 mg/dL (0.6-1.0) 0.5 mg/dL (0.6-1.0) Estimated GFR (Cockcroft-Gault) 124.6 124.6 BUN/Creatinine Ratio 30 (6-20) 30 (6-20) Glucose Level 151 mg/dL (70-99) 134 mg/dL (70-99) Calcium Level 7.7 mg/dL (8.5-10.1) 8.0 mg/dL (8.5-10.1) Total Bilirubin 0.3 mg/dL (0.2-1.0) 0.3 mg/dL (0.2-1.0) Aspartate Amino Transf (AST/SGOT) 50 U/L (15-37) 33 U/L (15-37) Alanine Aminotransferase (ALT/SGPT) 125 U/L (14-59) 105 U/L (14-59) Alkaline Phosphatase 147 U/L (46-116) 144 U/L (46-116) Total Protein 5.7 g/dL (6.4-8.2) 5.7 g/dL (6.4-8.2) Albumin 2.0 g/dL (3.4-5.0) 2.1 g/dL (3.4-5.0) Albumin/Globulin Ratio 0.5 (1.0-1.7) 0.6 (1.0-1.7) O2 Saturation 95 % (92-99) 96 % (92-99) Arterial Blood pH 7.46 (7.35-7.45) 7.47 (7.35-7.45) Arterial Blood pCO2 at Patient Temp 39 mmHg (35-46) 37 mmHg (35-46) Arterial Blood pO2 at Patient Temp 80 mmHg (65-108) 85 mmHg (65-108) Arterial Blood HCO3 28 mmol/L (21-28) 26 mmol/L (21-28) Arterial Blood Base Excess 4 mmol/L (-3-3) 2 mmol/L (-3-3) FiO2 40% vent 40 Laboratory Tests Test 05/14/21 05:11 05/14/21 07:30 White Blood Count 7.5 x10^3/uL (4.0-11.0) Red Blood Count 2.46 x10^6/uL (3.50-5.40) Hemoglobin 7.0 g/dL (12.0-15.5) Hematocrit 21.9 % (36.0-47.0) Mean Corpuscular Volume 89 fL (79-100) Mean Corpuscular Hemoglobin 29 pg (25-35) Mean Corpuscular Hemoglobin Concent 32 g/dL (31-37) Red Cell Distribution Width 14.7 % (11.5-14.5) Platelet Count 330 x10^3/uL (140-400) Neutrophils (%) (Auto) 65 % (31-73) Lymphocytes (%) (Auto) 21 % (24-48) Monocytes (%) (Auto) 9 % (0-9) Eosinophils (%) (Auto) 5 % (0-3) Basophils (%) (Auto) 1 % (0-3) Neutrophils # (Auto) 4.9 x10^3/uL (1.8-7.7) Lymphocytes # (Auto) 1.5 x10^3/uL (1.0-4.8) Monocytes # (Auto) 0.7 x10^3/uL (0.0-1.1) Eosinophils # (Auto) 0.4 x10^3/uL (0.0-0.7) Basophils # (Auto) 0.1 x10^3/uL (0.0-0.2) Sodium Level 141 mmol/L (136-145) Potassium Level 3.6 mmol/L (3.5-5.1) Chloride Level 104 mmol/L (98-107) Carbon Dioxide Level 28 mmol/L (21-32) Anion Gap 9 (6-14) Blood Urea Nitrogen 15 mg/dL (7-20) Creatinine 0.5 mg/dL (0.6-1.0) Estimated GFR (Cockcroft-Gault) 124.6 BUN/Creatinine Ratio 30 (6-20) Glucose Level 134 mg/dL (70-99) Calcium Level 8.0 mg/dL (8.5-10.1) Total Bilirubin 0.3 mg/dL (0.2-1.0) Aspartate Amino Transf (AST/SGOT) 33 U/L (15-37) Alanine Aminotransferase (ALT/SGPT) 105 U/L (14-59) Alkaline Phosphatase 144 U/L (46-116) Total Protein 5.7 g/dL (6.4-8.2) Albumin 2.1 g/dL (3.4-5.0) Albumin/Globulin Ratio 0.6 (1.0-1.7) O2 Saturation 96 % (92-99) Arterial Blood pH 7.47 (7.35-7.45) Arterial Blood pCO2 at Patient Temp 37 mmHg (35-46) Arterial Blood pO2 at Patient Temp 85 mmHg (65-108) Arterial Blood HCO3 26 mmol/L (21-28) Arterial Blood Base Excess 2 mmol/L (-3-3) FiO2 40 Medications Active Scripts Medications Dose Route/Sig Max Daily Dose Days Date Category Dose Instructions Easy Neb Compressor Nebulizer (Nebulizer and Compressor) 1 Each Each Each MC PRN PRN 05/01/21 Rx Use with albuterol as needed every 4 hours Albuterol Sulfate Neb Soln (Albuterol Sulfate) 2.5 Mg/3 Ml Vial.neb 1 Vial NEB PRN Q4HRS PRN 30 05/01/21 Rx Levofloxacin 750 Mg Tablet 1 Tab PO DAILY 5 05/01/21 Rx Seroquel (Quetiapine Fumarate) 25 Mg Tablet 25 Mg PO BID 04/26/21 Reported Mysoline (Primidone) 50 Mg Tablet 50 Mg PO DAILY 04/26/21 Reported Escitalopram Oxalate 20 Mg Tablet 20 Mg PO DAILY 03/26/21 Reported Omeprazole 20 Mg Capsule.dr 20 Mg PO DAILY 03/26/21 Reported Eliquis (Apixaban) 5 Mg Tablet 5 Mg PO BID 03/26/21 Reported Lasix (Furosemide) 40 Mg Tablet 40 Mg PO DAILY 03/26/21 Reported Comments Chest x-ray reviewed 05/14/2021 Unchanged bilateral interstitial infiltrates CT neck 05/07/2021 No definite tracheal stenosis seen. Chest x-ray reviewed 05/07/2021 Diffuse bilateral lung infiltrates reviewed cxr 05/05 ett ok Severe diffuse pulmonary opacities, decreased compared to prior. Impression . 1. Acute hypoxic respiratory failure secondary to likely hypoxic respiratory arrest leading to cardiac arrest.This is her second intubation in a week, ? tracheal or sub- glottic stenosis contributing to mucous plug/ hypoxic respiratory arrest. 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 Now, she has progressive worsening of the infiltrates, especially in the upper lobes. This could be related to a component of aspiration pneumonia. 2. The patient with underlying history of COVID-19 viral pneumonia in late November and early December with chronic interstitial infiltrates. She required another hospitalization few weeks ago with respiratory failure, but was successfully extubated. 3. Status post tracheostomy followed by decannulation.. 4. Cannot exclude the possibility of subglottic stenosis contributing to respiratory arrest. 5. Underlying obesity. 6. Abnormal CT chest as discussed above. 7. Bleeding around the endotracheal tube. She had hemoptysis before coming to the hospital. Could be contributed by pneumonia as well as use of Eliquis at home. Bleeding has resolved. 8. Anemia 9. Left upper extremity weakness. ct head neg Page of Plan . 05/14 1. cont vent support setting reviewed, FiO2, keep saturation 94% and above. 2. Continue empiric antibiotics. 3. Follow up chest x-rays reviewed Severe diffuse pulmonary opacities, 4. Continue to hold Eliquis. Follow-up hemoglobin still low. 5. CT of the neck without any tracheal stenosis. She continues to have moderate secretions and a weak cough. She will be at risk for respiratory arrest in the future 6. SCDs for DVT prophylaxis and hold off Lovenox. No further endotracheal bleeding seen but hemoglobin trending down. 7. PPI for stress ulcer prophylaxis. 8. Discussed with RN. Chart reviewed, imaging studies reviewed. 9. Awaiting Dr. Osullivan's recommendation for tracheostomy. 10. I had a long discussion with patient's son at the bedside05/11 I did explain to him that her 2 respiratory arrest recently are probably caused by inability to clear mucus. She probably may have upper airway narrowing/subgl ottic stenosis. surgical consult for tracheostomy placement Discussed with RN and RT. 05/13 1. cont vent support setting reviewed, FiO2, keep saturation 94% and above. 2. Continue empiric antibiotics. 3. Follow up chest x-rays reviewed Severe diffuse pulmonary opacities, 4. Continue to hold Eliquis. Follow-up hemoglobin still low. 5. CT of the neck without any tracheal stenosis. I deflated the cuff again today. Patient had some air leak suggesting mild improvement upper airway narrowing. 6. SCDs for DVT prophylaxis and hold off Lovenox. No further endotracheal bleeding seen but hemoglobin trending down. 7. PPI for stress ulcer prophylaxis. 8. Discussed with RN. Chart reviewed, imaging studies reviewed. 9. Currently sedation is off. Minimally awake but very weak. We will hold off on CPAP trials. 10. I had a long discussion with patient's son at the bedside05/11 I did explain to him that her 2 respiratory arrest recently are probably caused by inability to clear mucus. She probably may have upper airway narrowing/subglottic stenosis. surgical consult for tracheostomy placement Discussed with RN and RT. JEFFREY LYONS MD May 14, 2021 10:50
--- NOTE | 2021-05-14 11:21 | PDOC ---
[employer] PROGRESS NOTE Date of Service DOS: DATE: 05/14/21 TIME: 11:17 Chief Complaint Chief Complaint Respiratory failure Probable bacterial pneumonia Recent COVID-19 in November of last year Possible tracheal [place] History of tracheostomy with decannulation Chronic anticoagulation with some hemoptysis Septic shock Lactic acidosis Acute hypoxic respiratory failure secondary to likely bacterial pneumonia versus viral pneumonia, septic shock, lactic acidosis History of Present Illness History of Present Illness 05/14/2021 Patient seen and examined in the ICU Discussed with RN Chart reviewed She remains on the vent AC/20/450/40 percent with 5 PEEP Rectal bag in place Simon to bedside drainage SCDs are in place OG feeds running at 45 cc an hour Mitts on for patient safety 05/11/2021 Patient seen and examined in the ICU She remains on the vent AC/20/450/40 percent with 5 of PEEP OG feeds at 45 cc an hour Sedated with Dex Has several family members present. 1 son named Tushar is here who I think is the DPOA They're discussing whether to go forward with tracheostomy Chart reviewed Discussed with RN She remains critically ill 05/10/2021 Patient seen and examined in the ICU She remains on the vent AC/20/450/40 percent with 5 PEEP Sedated with Dex Mitt on the right hand left hand not moving much per RN SCDs in place Simon to bedside drainage Chart reviewed Discussed with RN She remains extremely critically ill 05/09/2021 Patient seen and examined in the ICU Remains on the ventilator AC/20/450/40 +5 of PEEP Chart reviewed Discussed with RN He remains critically ill 05/08/2021 Patient seen and examined in the ICU She remains on the vent AC/20/450 with 40% FiO2 and 5 of PEEP Sedated with fentanyl and Versed On IV Levophed Discussed with RN Chart reviewed She remains very critically ill 05/07/2021 Patient seen and examined in the ICU He remains on the vent AC/20/450/40 percent with 5 of PEEP Sedated with Versed fentanyl and propofol Discussed with RN Chart reviewed She remains very critically ill 05/06/2021 Patient seen and examined in the ICU She remains on the ventilator AC/20/450/50 percent with 5 of PEEP OG at 40 cc an hour Sedated with fentanyl and propofol and Versed Has Simon to bedside drainage SCDs are in place Chart reviewed Discussed with RN She remains critically ill 05/05/2021 Patient seen and examined in the ICU She remains on the ventilator AC/20/450/50 percent with 5 of PEEP Simon bedside drainage SCDs in place OG at 30 cc an hour Sedated with fentanyl propofol and Versed Chart reviewed Discussed with RN She remains critically ill 05/04/2021 Patient seen and examined in the ICU She is currently on the vent AC/20/450/50 +5 of PEEP Chart reviewed Discussed with RN She is sedated with Versed fentanyl Has IV Levophed hanging Vitals/I&O Vitals/I&O: Vital Signs Date Time Temp Pulse Resp B/P (MAP) Pulse Ox O2 Delivery O2 Flow Rate FiO2 05/14/21 08:00 Mechanical Ventilator 05/14/21 07:30 99 05/14/21 06:00 86 24 155/76 05/14/21 04:00 98.9 98.9 I & O 05/13/21 05/13/21 05/14/21 15:00 23:00 07:00 Intake Total 200 ml 300 ml 3276.5 ml Output Total 600 ml 375 ml 130 ml Balance -400 ml -75 ml 3146.5 ml Physical Exam General: Other (sedated ) Heart: Regular rate, Normal S1, Normal S2 Lungs: Other (Decreased breath sounds) Abdomen: Soft, Other (obese) Extremities: No clubbing, No cyanosis Skin: No significant lesion Labs Labs: Laboratory Tests Test 05/14/21 05:11 05/14/21 07:30 White Blood Count 7.5 x10^3/uL (4.0-11.0) Red Blood Count 2.46 x10^6/uL (3.50-5.40) Hemoglobin 7.0 g/dL (12.0-15.5) Hematocrit 21.9 % (36.0-47.0) Mean Corpuscular Volume 89 fL (79-100) Mean Corpuscular Hemoglobin 29 pg (25-35) Mean Corpuscular Hemoglobin Concent 32 g/dL (31-37) Red Cell Distribution Width 14.7 % (11.5-14.5) Platelet Count 330 x10^3/uL (140-400) Neutrophils (%) (Auto) 65 % (31-73) Lymphocytes (%) (Auto) 21 % (24-48) Monocytes (%) (Auto) 9 % (0-9) Eosinophils (%) (Auto) 5 % (0-3) Basophils (%) (Auto) 1 % (0-3) Neutrophils # (Auto) 4.9 x10^3/uL (1.8-7.7) Lymphocytes # (Auto) 1.5 x10^3/uL (1.0-4.8) Monocytes # (Auto) 0.7 x10^3/uL (0.0-1.1) Eosinophils # (Auto) 0.4 x10^3/uL (0.0-0.7) Basophils # (Auto) 0.1 x10^3/uL (0.0-0.2) Sodium Level 141 mmol/L (136-145) Potassium Level 3.6 mmol/L (3.5-5.1) Chloride Level 104 mmol/L (98-107) Carbon Dioxide Level 28 mmol/L (21-32) Anion Gap 9 (6-14) Blood Urea Nitrogen 15 mg/dL (7-20) Creatinine 0.5 mg/dL (0.6-1.0) Estimated GFR (Cockcroft-Gault) 124.6 BUN/Creatinine Ratio 30 (6-20) Glucose Level 134 mg/dL (70-99) Calcium Level 8.0 mg/dL (8.5-10.1) Total Bilirubin 0.3 mg/dL (0.2-1.0) Aspartate Amino Transf (AST/SGOT) 33 U/L (15-37) Alanine Aminotransferase (ALT/SGPT) 105 U/L (14-59) Alkaline Phosphatase 144 U/L (46-116) Total Protein 5.7 g/dL (6.4-8.2) Albumin 2.1 g/dL (3.4-5.0) Albumin/Globulin Ratio 0.6 (1.0-1.7) O2 Saturation 96 % (92-99) Arterial Blood pH 7.47 (7.35-7.45) Arterial Blood pCO2 at Patient Temp 37 mmHg (35-46) Arterial Blood pO2 at Patient Temp 85 mmHg (65-108) Arterial Blood HCO3 26 mmol/L (21-28) Arterial Blood Base Excess 2 mmol/L (-3-3) FiO2 40 Assessment and Plan Assessmemt and Plan Problems Medical Problems: (1) Cardiac arrest Status: Acute (2) Hypokalemia Status: Acute (3) Lactic acidosis Status: Acute (4) Pneumonia Status: Acute (5) Respiratory failure, acute Status: Acute (6) Septic shock Status: Acute Respiratory failure Probable bacterial pneumonia Recent COVID-19 in November of last year Possible tracheal [place] History of tracheostomy with decannulation Chronic anticoagulation with some hemoptysis Septic shock Lactic acidosis Acute hypoxic respiratory failure secondary to likely bacterial pneumonia versus viral pneumonia, septic shock, lactic acidosis Plan ICU monitoring Vent weaning General surgery consulted for probable tracheostomy IV antibiotics As needed sedation with Dex OG feeds Maintenance IV Trying to wean off Levophed Supportive care Monitor rectal bag Mitt for patient safety Home meds if possible Trend labs Appreciate subspecialist input DVT prophylaxis Full code Prognosis long-term guarded CC time 32 minutes Comment Review of Relevant I have reviewed the following items davina (where applicable) has been applied. Justifications for Admission Other Justification LUCERO PERAZA III DO May 14, 2021 11:21
[2021-05-14] MEDS: METOPROLOL IV PUSH 5 MG/5 ML VIAL. IVP PRN ×2 (12:22→16:51)
--- NOTE | 2021-05-14 14:40 | PDOC ---
PROGRESS NOTES Date of Service DATE: 05/14/21 TIME: 14:37 Subjective Subjective Patient seen and examined Objective Objective Vital Signs Date Time Temp Pulse Resp B/P (MAP) Pulse Ox O2 Delivery O2 Flow Rate FiO2 05/14/21 13:32 99 Ventilator 05/14/21 13:00 83 24 153/63 05/14/21 12:00 98.0 98.0 05/08/21 07:57 97.0 Intake and Output 05/14/21 07:00 Intake Total 3776.5 ml Output Total 1105 ml Balance 2671.5 ml IV Total 1012.5 ml Tube Feeding 2263 ml Other 501 ml Output Urine Total 1105 ml Physical Exam Abdomen: Normal bowel sounds Heart: Regular rate General: Other (Intubated) Lungs: Other (Mildly decreased breath sounds.) Assessment Assessment Problems Medical Problems: (1) Cardiac arrest Status: Acute (2) Hypokalemia Status: Acute (3) Lactic acidosis Status: Acute (4) Pneumonia Status: Acute (5) Respiratory failure, acute Status: Acute (6) Septic shock Status: Acute 1. Out of hospital acute cardiopulmonary arrest. Significant downtime. She remains on a ventilator. She continues on antibiotics and supportive treatment. Rhythm improved. The patient appears more alert today. 2. Recent treatment with Eliquis. I can find no history of atrial fibrillation or other indications for chronic anticoagulation. Holding Eliquis. Monitoring lab. 3. Septic shock. Continue on antibiotics. Pressors as needed. Slow improvement. 4. Hypokalemia. Initial potassium of 2.6. Continue replacement and monitoring. Comment Comment Review of Relevant I have reviewed the following items davina (where applicable) has been applied. Labs Laboratory Tests Test 05/13/21 06:30 05/13/21 07:20 05/14/21 05:11 05/14/21 07:30 White Blood Count 8.5 x10^3/uL (4.0-11.0) 7.5 x10^3/uL (4.0-11.0) Red Blood Count 2.56 x10^6/uL (3.50-5.40) 2.46 x10^6/uL (3.50-5.40) Hemoglobin 7.3 g/dL (12.0-15.5) 7.0 g/dL (12.0-15.5) Hematocrit 22.5 % (36.0-47.0) 21.9 % (36.0-47.0) Mean Corpuscular Volume 88 fL (79-100) 89 fL (79-100) Mean Corpuscular Hemoglobin 29 pg (25-35) 29 pg (25-35) Mean Corpuscular Hemoglobin Concent 33 g/dL (31-37) 32 g/dL (31-37) Red Cell Distribution Width 15.0 % (11.5-14.5) 14.7 % (11.5-14.5) Platelet Count 334 x10^3/uL (140-400) 330 x10^3/uL (140-400) Neutrophils (%) (Auto) 61 % (31-73) 65 % (31-73) Lymphocytes (%) (Auto) 27 % (24-48) 21 % (24-48) Monocytes (%) (Auto) 8 % (0-9) 9 % (0-9) Eosinophils (%) (Auto) 4 % (0-3) 5 % (0-3) Basophils (%) (Auto) 1 % (0-3) 1 % (0-3) Neutrophils # (Auto) 5.2 x10^3/uL (1.8-7.7) 4.9 x10^3/uL (1.8-7.7) Lymphocytes # (Auto) 2.2 x10^3/uL (1.0-4.8) 1.5 x10^3/uL (1.0-4.8) Monocytes # (Auto) 0.7 x10^3/uL (0.0-1.1) 0.7 x10^3/uL (0.0-1.1) Eosinophils # (Auto) 0.3 x10^3/uL (0.0-0.7) 0.4 x10^3/uL (0.0-0.7) Basophils # (Auto) 0.1 x10^3/uL (0.0-0.2) 0.1 x10^3/uL (0.0-0.2) Sodium Level 143 mmol/L (136-145) 141 mmol/L (136-145) Potassium Level 3.3 mmol/L (3.5-5.1) 3.6 mmol/L (3.5-5.1) Chloride Level 105 mmol/L (98-107) 104 mmol/L (98-107) Carbon Dioxide Level 27 mmol/L (21-32) 28 mmol/L (21-32) Anion Gap 11 (6-14) 9 (6-14) Blood Urea Nitrogen 15 mg/dL (7-20) 15 mg/dL (7-20) Creatinine 0.5 mg/dL (0.6-1.0) 0.5 mg/dL (0.6-1.0) Estimated GFR (Cockcroft-Gault) 124.6 124.6 BUN/Creatinine Ratio 30 (6-20) 30 (6-20) Glucose Level 151 mg/dL (70-99) 134 mg/dL (70-99) Calcium Level 7.7 mg/dL (8.5-10.1) 8.0 mg/dL (8.5-10.1) Total Bilirubin 0.3 mg/dL (0.2-1.0) 0.3 mg/dL (0.2-1.0) Aspartate Amino Transf (AST/SGOT) 50 U/L (15-37) 33 U/L (15-37) Alanine Aminotransferase (ALT/SGPT) 125 U/L (14-59) 105 U/L (14-59) Alkaline Phosphatase 147 U/L (46-116) 144 U/L (46-116) Total Protein 5.7 g/dL (6.4-8.2) 5.7 g/dL (6.4-8.2) Albumin 2.0 g/dL (3.4-5.0) 2.1 g/dL (3.4-5.0) Albumin/Globulin Ratio 0.5 (1.0-1.7) 0.6 (1.0-1.7) O2 Saturation 95 % (92-99) 96 % (92-99) Arterial Blood pH 7.46 (7.35-7.45) 7.47 (7.35-7.45) Arterial Blood pCO2 at Patient Temp 39 mmHg (35-46) 37 mmHg (35-46) Arterial Blood pO2 at Patient Temp 80 mmHg (65-108) 85 mmHg (65-108) Arterial Blood HCO3 28 mmol/L (21-28) 26 mmol/L (21-28) Arterial Blood Base Excess 4 mmol/L (-3-3) 2 mmol/L (-3-3) FiO2 40% vent 40 Test 05/14/21 12:30 Glucose (Fingerstick) 123 mg/dL (70-99) Laboratory Tests Test 05/14/21 05:11 05/14/21 07:30 05/14/21 12:30 White Blood Count 7.5 x10^3/uL (4.0-11.0) Red Blood Count 2.46 x10^6/uL (3.50-5.40) Hemoglobin 7.0 g/dL (12.0-15.5) Hematocrit 21.9 % (36.0-47.0) Mean Corpuscular Volume 89 fL (79-100) Mean Corpuscular Hemoglobin 29 pg (25-35) Mean Corpuscular Hemoglobin Concent 32 g/dL (31-37) Red Cell Distribution Width 14.7 % (11.5-14.5) Platelet Count 330 x10^3/uL (140-400) Neutrophils (%) (Auto) 65 % (31-73) Lymphocytes (%) (Auto) 21 % (24-48) Monocytes (%) (Auto) 9 % (0-9) Eosinophils (%) (Auto) 5 % (0-3) Basophils (%) (Auto) 1 % (0-3) Neutrophils # (Auto) 4.9 x10^3/uL (1.8-7.7) Lymphocytes # (Auto) 1.5 x10^3/uL (1.0-4.8) Monocytes # (Auto) 0.7 x10^3/uL (0.0-1.1) Eosinophils # (Auto) 0.4 x10^3/uL (0.0-0.7) Basophils # (Auto) 0.1 x10^3/uL (0.0-0.2) Sodium Level 141 mmol/L (136-145) Potassium Level 3.6 mmol/L (3.5-5.1) Chloride Level 104 mmol/L (98-107) Carbon Dioxide Level 28 mmol/L (21-32) Anion Gap 9 (6-14) Blood Urea Nitrogen 15 mg/dL (7-20) Creatinine 0.5 mg/dL (0.6-1.0) Estimated GFR (Cockcroft-Gault) 124.6 BUN/Creatinine Ratio 30 (6-20) Glucose Level 134 mg/dL (70-99) Calcium Level 8.0 mg/dL (8.5-10.1) Total Bilirubin 0.3 mg/dL (0.2-1.0) Aspartate Amino Transf (AST/SGOT) 33 U/L (15-37) Alanine Aminotransferase (ALT/SGPT) 105 U/L (14-59) Alkaline Phosphatase 144 U/L (46-116) Total Protein 5.7 g/dL (6.4-8.2) Albumin 2.1 g/dL (3.4-5.0) Albumin/Globulin Ratio 0.6 (1.0-1.7) O2 Saturation 96 % (92-99) Arterial Blood pH 7.47 (7.35-7.45) Arterial Blood pCO2 at Patient Temp 37 mmHg (35-46) Arterial Blood pO2 at Patient Temp 85 mmHg (65-108) Arterial Blood HCO3 26 mmol/L (21-28) Arterial Blood Base Excess 2 mmol/L (-3-3) FiO2 40 Glucose (Fingerstick) 123 mg/dL (70-99) Microbiology 05/03/21 Blood Culture - Final, Complete NO GROWTH AFTER 5 DAYS Medications Current Medications Propofol 100 ml @ As Directed STK-MED ONCE IV ; Start 05/03/21 at 10:43; Stop 05/03/21 at 10:43; Status DC Norepinephrine Bitartrate 8 mg/ Dextrose 258 ml @ 19.35 mls/ hr 1X ONCE IV Last administered on 05/03/21at 11:20; Start 05/03/21 at 11:15; Stop 05/04/21 at 00:34; Status DC Propofol (Diprivan) 200 mg TITRATE ONCE IV ; Start 05/03/21 at 11:45; Stop 05/03/21 at 11:46; Status UNV Propofol 100 ml @ 3 mls/hr CONT PRN IV PER PROTOCOL Last administered on 05/03/21at 10:50; Start 05/03/21 at 11:45; Stop 05/03/21 at 12:49; Status DC Cefepime HCl (Maxipime) 2 gm 1X ONCE IVP Last administered on 05/03/21at 11:45; Start 05/03/21 at 11:45; Stop 05/03/21 at 11:46; Status DC Vancomycin HCl 1.5 gm/Sodium Chloride 500 ml @ 250 mls/hr 1X ONCE IV ; Start 05/03/21 at 11:45; Stop 05/03/21 at 13:44; Status UNV Sodium Chloride 1,000 ml @ 1,000 mls/hr 1X ONCE IV Last administered on 05/03/21at 10:50; Start 05/03/21 at 11:45; Stop 05/03/21 at 12:44; Status DC Sodium Chloride 1,000 ml @ 1,000 mls/hr 1X ONCE IV Last administered on 05/03/21at 11:00; Start 05/03/21 at 11:45; Stop 05/03/21 at 12:44; Status DC Sodium Chloride 1,000 ml @ 250 mls/hr Q4H IV Last administered on 05/04/21at 03:45; Start 05/03/21 at 11:45; Stop 05/04/21 at 11:44; Status DC Vancomycin HCl 2 gm/Sodium Chloride 500 ml @ 250 mls/hr 1X ONCE IV Last administered on 05/03/21at 12:00; Start 05/03/21 at 12:00; Stop 05/03/21 at 13:59; Status DC Potassium Bicarbonate (Potassium Effervescent Tablet) 40 meq 1X ONCE NG Last administered on 05/03/21at 15:01; Start 05/03/21 at 12:00; Stop 05/03/21 at 12:01; Status DC Potassium Chloride/Water 100 ml @ 100 mls/hr Q1H IV ; Start 05/03/21 at 12:00; Stop 05/03/21 at 12:04; Status DC Apixaban (Eliquis) 5 mg BID PO ; Start 05/03/21 at 21:00; Stop 05/03/21 at 15:54; Status DC Primidone (Mysoline) 50 mg DAILY PO Last administered on 05/14/21at 08:06; Start 05/04/21 at 09:00 Quetiapine Fumarate (SEROquel) 25 mg BID PO Last administered on 05/14/21at 08:05; Start 05/03/21 at 21:00 Citalopram Hydrobromide (CeleXA) 20 mg DAILY PO Last administered on 05/14/21at 08:05; Start 05/04/21 at 09:00 Pantoprazole Sodium (PROTONIX VIAL for IV PUSH) 40 mg DAILYAC IVP Last administered on 05/14/21at 08:05; Start 05/04/21 at 07:30 Potassium Chloride/Water 100 ml @ 100 mls/hr Q1H IV Last administered on 05/03/21at 13:43; Start 05/03/21 at 12:00; Stop 05/03/21 at 13:59; Status DC Magnesium Sulfate 50 ml @ 25 mls/hr 1X ONCE IV Last administered on 05/03/21at 15:00; Start 05/03/21 at 12:00; Stop 05/03/21 at 13:59; Status DC Ondansetron HCl (Zofran) 4 mg PRN Q6HRS PRN IVP NAUSEA/VOMITING; Start 05/03/21 at 12:00 Calcium Carbonate/ Glycine (Tums) 500 mg PRN Q3HRS PRN PO HEARTBURN / GAS; Start 05/03/21 at 12:00 Info (Icu Electrolyte Protocol) 1 ea DAILY MC Last administered on 05/13/21at 09:00; Start 05/04/21 at 09:00 Sodium Chloride (Normal Saline Flush) 3 ml QSHIFT PRN IV AFTER MEDS AND BLOOD DRAWS; Start 05/03/21 at 12:00 Potassium Chloride/Water 100 ml @ 100 mls/hr Q1H IV Last administered on 05/03/21at 15:57; Start 05/03/21 at 14:00; Stop 05/03/21 at 15:59; Status DC Fentanyl Citrate 30 ml @ 2.5 mls/hr CONT PRN IV SEE PROTOCOL Last administered on 05/08/21at 06:54; Start 05/03/21 at 12:45 Midazolam HCl 100 ml @ 1 mls/hr CONT PRN IV SEE PROTOCOL Last administered on 05/08/21at 07:57; Start 05/03/21 at 12:45 Propofol 100 ml @ 3 mls/hr CONT PRN IV PER PROTOCOL Last administered on 05/08/21at 22:06; Start 05/03/21 at 12:45 Vecuronium Golden (Norcuron Bolus) 6 mg PRN 1X PRN IV VENT INDUCTION; Start 05/03/21 at 12:45; Stop 05/04/21 at 12:44; Status DC Dexmedetomidine HCl 400 mcg/ Sodium Chloride 100 ml @ 7,500 mls/hr CONT PRN IV PER PROTOCOL Last administered on 05/09/21at 10:42; Start 05/03/21 at 12:45; Stop 05/09/21 at 10:49; Status DC Iohexol (Omnipaque 350 Mg/ml) 100 ml 1X ONCE IV Last administered on 05/03/21at 12:58; Start 05/03/21 at 13:00; Stop 05/03/21 at 13:01; Status DC Info (CONTRAST GIVEN -- Rx MONITORING) 1 each PRN DAILY PRN MC SEE COMMENTS; Start 05/03/21 at 13:00; Stop 05/05/21 at 12:59; Status DC Piperacillin Sod/ Tazobactam Sod (Zosyn Per Pharmacy) 1 each PRN DAILY PRN MC SEE COMMENTS; Start 05/03/21 at 15:15; Stop 05/03/21 at 15:07; Status DC Vancomycin HCl (Vanco Per Pharmacy) 1 each PRN DAILY PRN MC SEE COMMENTS Last administered on 05/11/21at 09:00; Start 05/03/21 at 15:15; Stop 05/11/21 at 14:19; Status DC Cefepime HCl (Maxipime) 1 gm Q8HRS IVP ; Start 05/03/21 at 15:30; Status Cancel Insulin Human Lispro (HumaLOG) 0-7 UNITS TIDWMEALS SQ ; Start 05/03/21 at 17:00; Stop 05/07/21 at 07:52; Status DC Dextrose (Dextrose 50%-Water Syringe) 12.5 gm PRN Q15MIN PRN IV SEE COMMENTS; Start 05/03/21 at 15:15; Stop 05/07/21 at 07:53; Status DC Cefepime HCl (Maxipime) 1 gm Q8HRS IVP Last administered on 05/14/21at 14:23; Start 05/03/21 at 22:00 Methylprednisolone Sodium Succinate (SOLU-Medrol 125MG VIAL) 125 mg 1X ONCE IV Last administered on 05/03/21at 15:56; Start 05/03/21 at 15:30; Stop 05/03/21 at 15:31; Status DC Vancomycin HCl 1 gm/Sodium Chloride 250 ml @ 250 mls/hr Q12H IV Last administe red on 05/10/21at 00:06; Start 05/04/21 at 00:00; Stop 05/10/21 at 10:46; Status DC Vancomycin HCl (Vancomycin Trough Level) 1 each 1X ONCE MC ; Start 05/04/21 at 23:30; Stop 05/04/21 at 23:31; Status DC Potassium Chloride/Water 100 ml @ 100 mls/hr Q1H IV Last administered on 05/04/21at 09:38; Start 05/04/21 at 08:00; Stop 05/04/21 at 09:59; Status DC Calcium Chloride (Calcium Chloride) 1,000 mg STK-MED ONCE .ROUTE ; Start 05/03/21 at 11:00; Stop 05/04/21 at 12:23; Status DC Sodium Bicarbonate (Sodium Bicarb Adult 8.4% Syr) 50 meq STK-MED ONCE .ROUTE ; Start 05/03/21 at 11:00; Stop 05/04/21 at 12:23; Status DC Epinephrine HCl (EPINEPHrine SYRINGE) 3 mg STK-MED ONCE .ROUTE ; Start 05/03/21 at 11:00; Stop 05/04/21 at 12:23; Status DC Potassium Chloride/Water 100 ml @ 100 mls/hr Q1H IV Last administered on 05/05/21at 12:19; Start 05/05/21 at 09:00; Stop 05/05/21 at 12:59; Status DC Potassium Chloride/Water 100 ml @ 100 mls/hr Q1H IV Last administered on 05/06/21at 11:05; Start 05/06/21 at 10:00; Stop 05/06/21 at 11:59; Status DC Insulin Human Lispro (HumaLOG) 0-7 UNITS Q6HRS SQ ; Start 05/07/21 at 12:00; Stop 05/10/21 at 11:00; Status DC Dextrose (Dextrose 50%-Water Syringe) 12.5 gm PRN Q15MIN PRN IV SEE COMMENTS; Start 05/07/21 at 08:00 Norepinephrine Bitartrate 8 mg/ Dextrose 258 ml @ 21.672 mls/ hr CONT PRN IV PER PROTOCOL Last administered on 05/07/21at 11:40; Start 05/07/21 at 11:30 Vancomycin HCl (Vancomycin Trough Level) 1 each 1X ONCE MC ; Start 05/09/21 at 11:30; Stop 05/09/21 at 11:31; Status DC Metoprolol Tartrate (Lopressor Vial) 5 mg PRN Q6HRS PRN IVP HYPERTENSION Last administered on 05/14/21at 12:22; Start 05/09/21 at 03:45 Scopolamine (Transderm-Scop) 1 patch Q3DAYS TD Last administered on 05/12/21at 08:51; Start 05/09/21 at 10:00 Dexmedetomidine HCl 400 mcg/ Sodium Chloride 100 ml @ 7,500 mls/hr CONT PRN IV PER PROTOCOL; Start 05/09/21 at 11:00; Stop 05/09/21 at 10:56; Status DC Dexmedetomidine HCl 400 mcg/ Sodium Chloride 100 ml @ 5 mls/hr CONT PRN IV PER PROTOCOL Last administered on 05/14/21at 10:42; Start 05/09/21 at 11:00 Potassium Bicarbonate (Potassium Effervescent Tablet) 20 meq 1X ONCE PEG Last administered on 05/09/21at 13:56; Start 05/09/21 at 14:00; Stop 05/09/21 at 14:01; Status DC Potassium Bicarbonate (Potassium Effervescent Tablet) 40 meq 1X ONCE PEG Last administered on 05/10/21at 10:23; Start 05/10/21 at 10:00; Stop 05/10/21 at 10:01; Status DC Vancomycin HCl 1.25 gm/Sodium Chloride 250 ml @ 167 mls/hr Q12H IV Last administered on 05/11/21at 11:34; Start 05/10/21 at 12:00; Stop 05/11/21 at 14:19; Status DC Potassium Bicarbonate (Potassium Effervescent Tablet) 40 meq 1X ONCE PO Last administered on 05/11/21at 10:55; Start 05/11/21 at 08:30; Stop 05/11/21 at 08:31; Status DC Midazolam HCl (Versed) 5 mg 1X ONCE IVP Last administered on 05/11/21at 11:34; Start 05/11/21 at 11:30; Stop 05/11/21 at 11:32; Status DC Potassium Chloride/Water 100 ml @ 100 mls/hr Q1H IV Last administered on 05/13/21at 10:23; Start 05/13/21 at 08:30; Stop 05/13/21 at 10:29; Status DC Active Scripts Active Easy Neb Compressor Nebulizer (Nebulizer and Compressor) 1 Each Each Each MC PRN PRN Use with albuterol as needed every 4 hours Albuterol Sulfate Neb Soln (Albuterol Sulfate) 2.5 Mg/3 Ml Vial.neb 1 Vial NEB PRN Q4HRS PRN 30 Days Levofloxacin 750 Mg Tablet 1 Tab PO DAILY 5 Days Reported Seroquel (Quetiapine Fumarate) 25 Mg Tablet 25 Mg PO BID Mysoline (Primidone) 50 Mg Tablet 50 Mg PO DAILY Escitalopram Oxalate 20 Mg Tablet 20 Mg PO DAILY Omeprazole 20 Mg Capsule.dr 20 Mg PO DAILY Eliquis (Apixaban) 5 Mg Tablet 5 Mg PO BID Lasix (Furosemide) 40 Mg Tablet 40 Mg PO DAILY Vitals/I & O Vital Sign - Last 24 Hours 05/13/21 05/13/21 05/13/21 05/13/21 15:00 15:07 16:00 17:00 Temp 99.4 99.4 Pulse 82 64 74 Resp 24 24 24 B/P (MAP) 125/64 143/79 145/73 Pulse Ox 97 98 98 98 O2 Delivery Ventilator Ventilator Ventilator Ventilator 05/13/21 05/13/21 05/13/21 05/13/21 18:00 18:07 19:00 19:49 Pulse 84 50 Resp 24 24 B/P (MAP) 171/95 109/61 Pulse Ox 99 97 99 99 O2 Delivery Ventilator Ventilator Ventilator Ventilator 05/13/21 05/13/21 05/13/21 05/13/21 20:00 20:00 21:00 22:00 Temp 98.9 98.9 Pulse 104 58 50 Resp 24 24 24 B/P (MAP) 175/88 109/63 131/74 Pulse Ox 97 98 100 O2 Delivery Ventilator Mechanical Ventilator Ventilator Ventilator 05/13/21 05/13/21 05/14/21 05/14/21 23:00 23:25 00:00 00:00 Temp 99.0 99.0 Pulse 48 46 Resp 24 24 B/P (MAP) 104/66 98/61 Pulse Ox 100 100 100 O2 Delivery Ventilator Ventilator Ventilator Mechanical Ventilator 05/14/21 05/14/21 05/14/21 05/14/21 01:00 02:00 03:00 04:00 Pulse 64 72 44 Resp B/P (MAP) 119/70 152/79 96/59 Pulse Ox 100 100 97 100 O2 Delivery Ventilator Ventilator Ventilator Ventilator 05/14/21 05/14/21 05/14/21 05/14/21 04:00 05:00 06:00 07:00 Temp 98.9 98.9 Pulse 72 68 86 44 Resp B/P (MAP) 150/80 127/69 155/76 92/76 Pulse Ox 98 96 99 99 O2 Delivery Ventilator Ventilator Ventilator Ventilator 05/14/21 05/14/21 05/14/21 05/14/21 07:30 08:00 08:00 09:00 Temp 98.6 98.6 Pulse 72 86 B/P (MAP) 129/80 128/71 Pulse Ox 99 98 99 O2 Delivery Ventilator Ventilator Mechanical Ventilator Ventilator 05/14/21 05/14/21 05/14/21 05/14/21 10:00 10:00 11:00 11:30 Pulse 86 86 B/P (MAP) 157/78 160/81 Pulse Ox 98 98 99 O2 Delivery Ventilator Ventilator Ventilator Ventilator 05/14/21 05/14/21 05/14/21 05/14/21 12:00 12:22 13:00 13:32 Temp 98.0 98.0 Pulse 72 108 83 B/P (MAP) 197/98 179/90 153/63 Pulse Ox 100 99 99 O2 Delivery Ventilator Ventilator Ventilator Intake and Output 05/13/21 05/13/21 05/14/21 15:00 23:00 07:00 Intake Total 200 ml 300 ml 3276.5 ml Output Total 600 ml 375 ml 130 ml Balance -400 ml -75 ml 3146.5 ml Justifications for Admission Other Justification YUDITH RANGEL MD May 14, 2021 14:40
--- NOTE | 2021-05-14 15:45 | NUR ---
SS following up with discharge planning. SS reviewed pt chart and discussed with pt RN. Pt is currently on the vent at 40%. COVID19 negative. Pt on IV Cefepime. Pt on Precedex. Tube feeds. Dr. Yap consulted for trach. Not ready. SS will continue to follow for discharge planning.
--- NOTE | 2021-05-14 19:39 | PDOC ---
SURGICAL PROGRESS NOTE DATE: 05/14/21 TIME: 19:36 Subjective Intubated and sedated Vital Signs Vital Signs Date Time Temp Pulse Resp B/P (MAP) Pulse Ox O2 Delivery O2 Flow Rate FiO2 05/14/21 18:00 60 24 106/58 95 Ventilator 05/14/21 16:00 98.0 98.0 I&O Intake and Output 05/14/21 07:00 Intake Total 3776.5 ml Output Total 1105 ml Balance 2671.5 ml IV Total 1012.5 ml Tube Feeding 2263 ml Other 501 ml Output Urine Total 1105 ml General: No acute distress, Other (orally intubated) Labs Laboratory Tests Test 05/13/21 06:30 05/13/21 07:20 05/14/21 05:11 05/14/21 07:30 White Blood Count 8.5 x10^3/uL (4.0-11.0) 7.5 x10^3/uL (4.0-11.0) Red Blood Count 2.56 x10^6/uL (3.50-5.40) 2.46 x10^6/uL (3.50-5.40) Hemoglobin 7.3 g/dL (12.0-15.5) 7.0 g/dL (12.0-15.5) Hematocrit 22.5 % (36.0-47.0) 21.9 % (36.0-47.0) Mean Corpuscular Volume 88 fL (79-100) 89 fL (79-100) Mean Corpuscular Hemoglobin 29 pg (25-35) 29 pg (25-35) Mean Corpuscular Hemoglobin Concent 33 g/dL (31-37) 32 g/dL (31-37) Red Cell Distribution Width 15.0 % (11.5-14.5) 14.7 % (11.5-14.5) Platelet Count 334 x10^3/uL (140-400) 330 x10^3/uL (140-400) Neutrophils (%) (Auto) 61 % (31-73) 65 % (31-73) Lymphocytes (%) (Auto) 27 % (24-48) 21 % (24-48) Monocytes (%) (Auto) 8 % (0-9) 9 % (0-9) Eosinophils (%) (Auto) 4 % (0-3) 5 % (0-3) Basophils (%) (Auto) 1 % (0-3) 1 % (0-3) Neutrophils # (Auto) 5.2 x10^3/uL (1.8-7.7) 4.9 x10^3/uL (1.8-7.7) Lymphocytes # (Auto) 2.2 x10^3/uL (1.0-4.8) 1.5 x10^3/uL (1.0-4.8) Monocytes # (Auto) 0.7 x10^3/uL (0.0-1.1) 0.7 x10^3/uL (0.0-1.1) Eosinophils # (Auto) 0.3 x10^3/uL (0.0-0.7) 0.4 x10^3/uL (0.0-0.7) Basophils # (Auto) 0.1 x10^3/uL (0.0-0.2) 0.1 x10^3/uL (0.0-0.2) Sodium Level 143 mmol/L (136-145) 141 mmol/L (136-145) Potassium Level 3.3 mmol/L (3.5-5.1) 3.6 mmol/L (3.5-5.1) Chloride Level 105 mmol/L (98-107) 104 mmol/L (98-107) Carbon Dioxide Level 27 mmol/L (21-32) 28 mmol/L (21-32) Anion Gap 11 (6-14) 9 (6-14) Blood Urea Nitrogen 15 mg/dL (7-20) 15 mg/dL (7-20) Creatinine 0.5 mg/dL (0.6-1.0) 0.5 mg/dL (0.6-1.0) Estimated GFR (Cockcroft-Gault) 124.6 124.6 BUN/Creatinine Ratio 30 (6-20) 30 (6-20) Glucose Level 151 mg/dL (70-99) 134 mg/dL (70-99) Calcium Level 7.7 mg/dL (8.5-10.1) 8.0 mg/dL (8.5-10.1) Total Bilirubin 0.3 mg/dL (0.2-1.0) 0.3 mg/dL (0.2-1.0) Aspartate Amino Transf (AST/SGOT) 50 U/L (15-37) 33 U/L (15-37) Alanine Aminotransferase (ALT/SGPT) 125 U/L (14-59) 105 U/L (14-59) Alkaline Phosphatase 147 U/L (46-116) 144 U/L (46-116) Total Protein 5.7 g/dL (6.4-8.2) 5.7 g/dL (6.4-8.2) Albumin 2.0 g/dL (3.4-5.0) 2.1 g/dL (3.4-5.0) Albumin/Globulin Ratio 0.5 (1.0-1.7) 0.6 (1.0-1.7) O2 Saturation 95 % (92-99) 96 % (92-99) Arterial Blood pH 7.46 (7.35-7.45) 7.47 (7.35-7.45) Arterial Blood pCO2 at Patient Temp 39 mmHg (35-46) 37 mmHg (35-46) Arterial Blood pO2 at Patient Temp 80 mmHg (65-108) 85 mmHg (65-108) Arterial Blood HCO3 28 mmol/L (21-28) 26 mmol/L (21-28) Arterial Blood Base Excess 4 mmol/L (-3-3) 2 mmol/L (-3-3) FiO2 40% vent 40 Test 05/14/21 12:30 05/14/21 17:51 Glucose (Fingerstick) 123 mg/dL (70-99) 135 mg/dL (70-99) Laboratory Tests Test 05/14/21 05:11 05/14/21 07:30 05/14/21 12:30 05/14/21 17:51 White Blood Count 7.5 x10^3/uL (4.0-11.0) Red Blood Count 2.46 x10^6/uL (3.50-5.40) Hemoglobin 7.0 g/dL (12.0-15.5) Hematocrit 21.9 % (36.0-47.0) Mean Corpuscular Volume 89 fL (79-100) Mean Corpuscular Hemoglobin 29 pg (25-35) Mean Corpuscular Hemoglobin Concent 32 g/dL (31-37) Red Cell Distribution Width 14.7 % (11.5-14.5) Platelet Count 330 x10^3/uL (140-400) Neutrophils (%) (Auto) 65 % (31-73) Lymphocytes (%) (Auto) 21 % (24-48) Monocytes (%) (Auto) 9 % (0-9) Eosinophils (%) (Auto) 5 % (0-3) Basophils (%) (Auto) 1 % (0-3) Neutrophils # (Auto) 4.9 x10^3/uL (1.8-7.7) Lymphocytes # (Auto) 1.5 x10^3/uL (1.0-4.8) Monocytes # (Auto) 0.7 x10^3/uL (0.0-1.1) Eosinophils # (Auto) 0.4 x10^3/uL (0.0-0.7) Basophils # (Auto) 0.1 x10^3/uL (0.0-0.2) Sodium Level 141 mmol/L (136-145) Potassium Level 3.6 mmol/L (3.5-5.1) Chloride Level 104 mmol/L (98-107) Carbon Dioxide Level 28 mmol/L (21-32) Anion Gap 9 (6-14) Blood Urea Nitrogen 15 mg/dL (7-20) Creatinine 0.5 mg/dL (0.6-1.0) Estimated GFR (Cockcroft-Gault) 124.6 BUN/Creatinine Ratio 30 (6-20) Glucose Level 134 mg/dL (70-99) Calcium Level 8.0 mg/dL (8.5-10.1) Total Bilirubin 0.3 mg/dL (0.2-1.0) Aspartate Amino Transf (AST/SGOT) 33 U/L (15-37) Alanine Aminotransferase (ALT/SGPT) 105 U/L (14-59) Alkaline Phosphatase 144 U/L (46-116) Total Protein 5.7 g/dL (6.4-8.2) Albumin 2.1 g/dL (3.4-5.0) Albumin/Globulin Ratio 0.6 (1.0-1.7) O2 Saturation 96 % (92-99) Arterial Blood pH 7.47 (7.35-7.45) Arterial Blood pCO2 at Patient Temp 37 mmHg (35-46) Arterial Blood pO2 at Patient Temp 85 mmHg (65-108) Arterial Blood HCO3 26 mmol/L (21-28) Arterial Blood Base Excess 2 mmol/L (-3-3) FiO2 40 Glucose (Fingerstick) 123 mg/dL (70-99) 135 mg/dL (70-99) Problem List Problems Medical Problems: (1) Cardiac arrest Status: Acute (2) Hypokalemia Status: Acute (3) Lactic acidosis Status: Acute (4) Pneumonia Status: Acute (5) Respiratory failure, acute Status: Acute (6) Septic shock Status: Acute Assessment/Plan respiratory failure plan trach in AM Justicifation of Admission Dx: Justifications for Admission: Justification of Admission Dx: Yes VENESSA MCKENNA MD May 14, 2021 19:39
[2021-05-15] VITALS (30 sets, daily range): BP systolic 77–192; BP diastolic 36–76
[2021-05-15] MEDS: DEXMEDETOMIDINE 400 MCG in IV NORMAL SALINE 100ML 96 ML IV PRN ×3 (00:36→21:21)
[2021-05-15] MEDS ORDERED: fentaNYL PF VIAL 100 MCG/2 ML VIAL IVP PRN ×2 (06:00)
[2021-05-15] MEDS ORDERED: MORPHINE SULFATE 2 MG/ML INJ. IVP PRN (06:00)
[2021-05-15] MEDS ORDERED: PROCHLORPERAZINE 10 MG/2 ML VIAL. IVP PRN (06:00)
[2021-05-15] MEDS ORDERED: IV RINGERS,LACTATED 1000ML 1,000 ML IV SCH (06:00)
[2021-05-15] MEDS ORDERED: HYDROmorphone 2 MG/ML INJ. IVP PRN (06:00)
[2021-05-15] MEDS ORDERED: PERFLUTREN PROTEIN-A MICROSPHR 0.22 MG/ML 3 ML VIAL. IV ONE ×4 (06:29→15:15)
[2021-05-15 07:45] LABS: BASO # 0.1 x10^3/uL (0.0-0.2); BASO % 1 % (0-3); EOS # 0.3 x10^3/uL (0.0-0.7); EOS % 3 % (0-3); HEMATOCRIT 23.3 % (36.0-47.0); HEMOGLOBIN 7.7 g/dL (12.0-15.5); LYMPH # 2.7 x10^3/uL (1.0-4.8); LYMPH % 26 % (24-48); MEAN CORPUSCULAR HEMOGLOBIN 29 pg (25-35); MEAN CORPUSCULAR HGB CONC 33 g/dL (31-37); MEAN CORPUSCULAR VOLUME 89 fL (79-100); MONO # 0.5 x10^3/uL (0.0-1.1); MONO % 5 % (0-9); NEUT # 6.6 x10^3/uL (1.8-7.7); NEUT % 65 % (31-73); PLATELET COUNT 375 x10^3/uL (140-400); RED BLOOD COUNT 2.61 x10^6/uL (3.50-5.40); RED CELL DISTRIBUTION WIDTH 14.6 % (11.5-14.5); WHITE BLOOD COUNT 10.2 x10^3/uL (4.0-11.0)
[2021-05-15] MEDS: fentaNYL HIGH DOSE PCA 55 ML IV PRN (07:47)
[2021-05-15] MEDS: CITALOPRAM 20 MG TABLET. PO SCH (07:48)
[2021-05-15] MEDS: QUEtiapine 25 MG TABLET. PO SCH ×2 (07:48→21:00)
[2021-05-15] MEDS: PROPOFOL 100 ML IV PRN ×3 (07:48→17:54)
[2021-05-15] MEDS: PRIMIDONE 50 MG TABLET PO SCH (07:48)
[2021-05-15] MEDS: SCOPOLAMINE 1.5MG PATCH. TD SCH (07:49)
[2021-05-15 08:00] LABS: CREATININE 0.6 mg/dL (0.6-1.0); MAGNESIUM 2.2 mg/dL (1.8-2.4); PHOSPHORUS 3.9 mg/dL (2.6-4.7); POTASSIUM 3.6 mmol/L (3.5-5.1)
[2021-05-15] MEDS: PANTOPRAZOLE IV PUSH 40 MG VIAL. IVP SCH (08:00)
[2021-05-15] MEDS ORDERED: fentaNYL PF VIAL 100 MCG/2 ML VIAL ONE (08:39)
[2021-05-15] MEDS ORDERED: ROCURONIUM 100 MG/10 ML VIAL. ONE (08:39)
[2021-05-15 08:42] LABS: BASE EXCESS ABG 3 mmol/L (-3-3); HCO3 ABG 26 mmol/L (21-28); PCO2 ABG 35 mmHg (35-46); PO2 ABG 72 mmHg (65-108); SAT O2 ABG 94 % (92-99)
[2021-05-15] MEDS ORDERED: SURGICEL FIBRILLAR 1X2 EACH. ONE (08:42)
[2021-05-15] MEDS ORDERED: EPINEPHrine 1 MG/ML VIAL ONE (08:43)
[2021-05-15] MEDS ORDERED: BUPIVACAINE-EPI 0.5% 30 ML VIAL KIT. ONE (08:43)
[2021-05-15] MEDS: ELECTROLYTE (ICU) PROTOCOL. MC SCH (09:00)
--- NOTE | 2021-05-15 09:02 | PDOC ---
SURGICAL PROGRESS NOTE DATE: 05/15/21 TIME: 08:57 Subjective Pre-Op Note 61 yo F with respiratory failure. TO OR for tracheostomy, redo. R/R/B/A d/w pt's son on phone and left message with daughter. Risks, including, but not limited to: bleeding, infection, damage to surrounding structures, risk of anesthesia. Increased risk given obesity and previous tracheostomy. He appears to understand, his questions are answered and he elects to proceed. Vital Signs Vital Signs Date Time Temp Pulse Resp B/P (MAP) Pulse Ox O2 Delivery O2 Flow Rate FiO2 05/15/21 08:26 97 Ventilator 05/15/21 08:00 97.7 48 24 90/50 97.7 I&O Intake and Output 05/15/21 07:00 Intake Total 2267.1 ml Output Total 2575 ml Balance -307.9 ml IV Total 218.1 ml Tube Feeding 1648 ml Other 401 ml Output Urine Total 2575 ml Gastric Drainage Total 0 ml Labs Laboratory Tests Test 05/14/21 05:11 05/14/21 07:30 05/14/21 12:30 05/14/21 17:51 White Blood Count 7.5 x10^3/uL (4.0-11.0) Red Blood Count 2.46 x10^6/uL (3.50-5.40) Hemoglobin 7.0 g/dL (12.0-15.5) Hematocrit 21.9 % (36.0-47.0) Mean Corpuscular Volume 89 fL (79-100) Mean Corpuscular Hemoglobin 29 pg (25-35) Mean Corpuscular Hemoglobin Concent 32 g/dL (31-37) Red Cell Distribution Width 14.7 % (11.5-14.5) Platelet Count 330 x10^3/uL (140-400) Neutrophils (%) (Auto) 65 % (31-73) Lymphocytes (%) (Auto) 21 % (24-48) Monocytes (%) (Auto) 9 % (0-9) Eosinophils (%) (Auto) 5 % (0-3) Basophils (%) (Auto) 1 % (0-3) Neutrophils # (Auto) 4.9 x10^3/uL (1.8-7.7) Lymphocytes # (Auto) 1.5 x10^3/uL (1.0-4.8) Monocytes # (Auto) 0.7 x10^3/uL (0.0-1.1) Eosinophils # (Auto) 0.4 x10^3/uL (0.0-0.7) Basophils # (Auto) 0.1 x10^3/uL (0.0-0.2) Sodium Level 141 mmol/L (136-145) Potassium Level 3.6 mmol/L (3.5-5.1) Chloride Level 104 mmol/L (98-107) Carbon Dioxide Level 28 mmol/L (21-32) Anion Gap 9 (6-14) Blood Urea Nitrogen 15 mg/dL (7-20) Creatinine 0.5 mg/dL (0.6-1.0) Estimated GFR (Cockcroft-Gault) 124.6 BUN/Creatinine Ratio 30 (6-20) Glucose Level 134 mg/dL (70-99) Calcium Level 8.0 mg/dL (8.5-10.1) Total Bilirubin 0.3 mg/dL (0.2-1.0) Aspartate Amino Transf (AST/SGOT) 33 U/L (15-37) Alanine Aminotransferase (ALT/SGPT) 105 U/L (14-59) Alkaline Phosphatase 144 U/L (46-116) Total Protein 5.7 g/dL (6.4-8.2) Albumin 2.1 g/dL (3.4-5.0) Albumin/Globulin Ratio 0.6 (1.0-1.7) O2 Saturation 96 % (92-99) Arterial Blood pH 7.47 (7.35-7.45) Arterial Blood pCO2 at Patient Temp 37 mmHg (35-46) Arterial Blood pO2 at Patient Temp 85 mmHg (65-108) Arterial Blood HCO3 26 mmol/L (21-28) Arterial Blood Base Excess 2 mmol/L (-3-3) FiO2 40 Glucose (Fingerstick) 123 mg/dL (70-99) 135 mg/dL (70-99) Test 05/15/21 07:03 05/15/21 08:30 White Blood Count 10.2 x10^3/uL (4.0-11.0) Red Blood Count 2.61 x10^6/uL (3.50-5.40) Hemoglobin 7.7 g/dL (12.0-15.5) Hematocrit 23.3 % (36.0-47.0) Mean Corpuscular Volume 89 fL (79-100) Mean Corpuscular Hemoglobin 29 pg (25-35) Mean Corpuscular Hemoglobin Concent 33 g/dL (31-37) Red Cell Distribution Width 14.6 % (11.5-14.5) Platelet Count 375 x10^3/uL (140-400) Neutrophils (%) (Auto) 65 % (31-73) Lymphocytes (%) (Auto) 26 % (24-48) Monocytes (%) (Auto) 5 % (0-9) Eosinophils (%) (Auto) 3 % (0-3) Basophils (%) (Auto) 1 % (0-3) Neutrophils # (Auto) 6.6 x10^3/uL (1.8-7.7) Lymphocytes # (Auto) 2.7 x10^3/uL (1.0-4.8) Monocytes # (Auto) 0.5 x10^3/uL (0.0-1.1) Eosinophils # (Auto) 0.3 x10^3/uL (0.0-0.7) Basophils # (Auto) 0.1 x10^3/uL (0.0-0.2) Sodium Level 141 mmol/L (136-145) Potassium Level 3.6 mmol/L (3.5-5.1) Chloride Level 106 mmol/L (98-107) Carbon Dioxide Level 29 mmol/L (21-32) Anion Gap 6 (6-14) Blood Urea Nitrogen 15 mg/dL (7-20) Creatinine 0.6 mg/dL (0.6-1.0) Estimated GFR (Cockcroft-Gault) 101.0 Glucose Level 157 mg/dL (70-99) Calcium Level 8.0 mg/dL (8.5-10.1) Phosphorus Level 3.9 mg/dL (2.6-4.7) Magnesium Level 2.2 mg/dL (1.8-2.4) O2 Saturation 94 % (92-99) Arterial Blood pH 7.50 (7.35-7.45) Arterial Blood pCO2 at Patient Temp 35 mmHg (35-46) Arterial Blood pO2 at Patient Temp 72 mmHg (65-108) Arterial Blood HCO3 26 mmol/L (21-28) Arterial Blood Base Excess 3 mmol/L (-3-3) FiO2 40% ac 20 450 5 Laboratory Tests Test 05/14/21 12:30 05/14/21 17:51 05/15/21 07:03 05/15/21 08:30 Glucose (Fingerstick) 123 mg/dL (70-99) 135 mg/dL (70-99) White Blood Count 10.2 x10^3/uL (4.0-11.0) Red Blood Count 2.61 x10^6/uL (3.50-5.40) Hemoglobin 7.7 g/dL (12.0-15.5) Hematocrit 23.3 % (36.0-47.0) Mean Corpuscular Volume 89 fL (79-100) Mean Corpuscular Hemoglobin 29 pg (25-35) Mean Corpuscular Hemoglobin Concent 33 g/dL (31-37) Red Cell Distribution Width 14.6 % (11.5-14.5) Platelet Count 375 x10^3/uL (140-400) Neutrophils (%) (Auto) 65 % (31-73) Lymphocytes (%) (Auto) 26 % (24-48) Monocytes (%) (Auto) 5 % (0-9) Eosinophils (%) (Auto) 3 % (0-3) Basophils (%) (Auto) 1 % (0-3) Neutrophils # (Auto) 6.6 x10^3/uL (1.8-7.7) Lymphocytes # (Auto) 2.7 x10^3/uL (1.0-4.8) Monocytes # (Auto) 0.5 x10^3/uL (0.0-1.1) Eosinophils # (Auto) 0.3 x10^3/uL (0.0-0.7) Basophils # (Auto) 0.1 x10^3/uL (0.0-0.2) Sodium Level 141 mmol/L (136-145) Potassium Level 3.6 mmol/L (3.5-5.1) Chloride Level 106 mmol/L (98-107) Carbon Dioxide Level 29 mmol/L (21-32) Anion Gap 6 (6-14) Blood Urea Nitrogen 15 mg/dL (7-20) Creatinine 0.6 mg/dL (0.6-1.0) Estimated GFR (Cockcroft-Gault) 101.0 Glucose Level 157 mg/dL (70-99) Calcium Level 8.0 mg/dL (8.5-10.1) Phosphorus Level 3.9 mg/dL (2.6-4.7) Magnesium Level 2.2 mg/dL (1.8-2.4) O2 Saturation 94 % (92-99) Arterial Blood pH 7.50 (7.35-7.45) Arterial Blood pCO2 at Patient Temp 35 mmHg (35-46) Arterial Blood pO2 at Patient Temp 72 mmHg (65-108) Arterial Blood HCO3 26 mmol/L (21-28) Arterial Blood Base Excess 3 mmol/L (-3-3) FiO2 40% ac 20 450 5 Problem List Problems Medical Problems: (1) Cardiac arrest Status: Acute (2) Hypokalemia Status: Acute (3) Lactic acidosis Status: Acute (4) Pneumonia Status: Acute (5) Respiratory failure, acute Status: Acute (6) Septic shock Status: Acute Justicifation of Admission Dx: Justifications for Admission: Justification of Admission Dx: Yes VENESSA MCKENNA MD May 15, 2021 09:02
[2021-05-15] MEDS ORDERED: MIDAZOLAM HCL/PF 5 MG/5 ML VIAL. ONE (09:09)
[2021-05-15] MEDS ORDERED: MIDAZOLAM HCL/PF 5 MG/5 ML VIAL. IVP ONE (09:15)
--- NOTE | 2021-05-15 09:24 | PDOC ---
PULMONARY PROGRESS NOTES DATE: 05/15/21 TIME: 09:24 Subjective Patient remains on assist control ventilation No overnight events Vitals Vital Signs Date Time Temp Pulse Resp B/P (MAP) Pulse Ox O2 Delivery O2 Flow Rate FiO2 05/15/21 08:26 97 Ventilator 05/15/21 08:00 97.7 48 24 90/50 97.7 Lungs: Other (Decreased breath sounds) Cardiovascular: S1, S2 Extremities: Other (1+) Skin: No Rashes Labs Laboratory Tests Test 05/14/21 05:11 05/14/21 07:30 05/14/21 12:30 05/14/21 17:51 White Blood Count 7.5 x10^3/uL (4.0-11.0) Red Blood Count 2.46 x10^6/uL (3.50-5.40) Hemoglobin 7.0 g/dL (12.0-15.5) Hematocrit 21.9 % (36.0-47.0) Mean Corpuscular Volume 89 fL (79-100) Mean Corpuscular Hemoglobin 29 pg (25-35) Mean Corpuscular Hemoglobin Concent 32 g/dL (31-37) Red Cell Distribution Width 14.7 % (11.5-14.5) Platelet Count 330 x10^3/uL (140-400) Neutrophils (%) (Auto) 65 % (31-73) Lymphocytes (%) (Auto) 21 % (24-48) Monocytes (%) (Auto) 9 % (0-9) Eosinophils (%) (Auto) 5 % (0-3) Basophils (%) (Auto) 1 % (0-3) Neutrophils # (Auto) 4.9 x10^3/uL (1.8-7.7) Lymphocytes # (Auto) 1.5 x10^3/uL (1.0-4.8) Monocytes # (Auto) 0.7 x10^3/uL (0.0-1.1) Eosinophils # (Auto) 0.4 x10^3/uL (0.0-0.7) Basophils # (Auto) 0.1 x10^3/uL (0.0-0.2) Sodium Level 141 mmol/L (136-145) Potassium Level 3.6 mmol/L (3.5-5.1) Chloride Level 104 mmol/L (98-107) Carbon Dioxide Level 28 mmol/L (21-32) Anion Gap 9 (6-14) Blood Urea Nitrogen 15 mg/dL (7-20) Creatinine 0.5 mg/dL (0.6-1.0) Estimated GFR (Cockcroft-Gault) 124.6 BUN/Creatinine Ratio 30 (6-20) Glucose Level 134 mg/dL (70-99) Calcium Level 8.0 mg/dL (8.5-10.1) Total Bilirubin 0.3 mg/dL (0.2-1.0) Aspartate Amino Transf (AST/SGOT) 33 U/L (15-37) Alanine Aminotransferase (ALT/SGPT) 105 U/L (14-59) Alkaline Phosphatase 144 U/L (46-116) Total Protein 5.7 g/dL (6.4-8.2) Albumin 2.1 g/dL (3.4-5.0) Albumin/Globulin Ratio 0.6 (1.0-1.7) O2 Saturation 96 % (92-99) Arterial Blood pH 7.47 (7.35-7.45) Arterial Blood pCO2 at Patient Temp 37 mmHg (35-46) Arterial Blood pO2 at Patient Temp 85 mmHg (65-108) Arterial Blood HCO3 26 mmol/L (21-28) Arterial Blood Base Excess 2 mmol/L (-3-3) FiO2 40 Glucose (Fingerstick) 123 mg/dL (70-99) 135 mg/dL (70-99) Test 05/15/21 07:03 05/15/21 08:30 White Blood Count 10.2 x10^3/uL (4.0-11.0) Red Blood Count 2.61 x10^6/uL (3.50-5.40) Hemoglobin 7.7 g/dL (12.0-15.5) Hematocrit 23.3 % (36.0-47.0) Mean Corpuscular Volume 89 fL (79-100) Mean Corpuscular Hemoglobin 29 pg (25-35) Mean Corpuscular Hemoglobin Concent 33 g/dL (31-37) Red Cell Distribution Width 14.6 % (11.5-14.5) Platelet Count 375 x10^3/uL (140-400) Neutrophils (%) (Auto) 65 % (31-73) Lymphocytes (%) (Auto) 26 % (24-48) Monocytes (%) (Auto) 5 % (0-9) Eosinophils (%) (Auto) 3 % (0-3) Basophils (%) (Auto) 1 % (0-3) Neutrophils # (Auto) 6.6 x10^3/uL (1.8-7.7) Lymphocytes # (Auto) 2.7 x10^3/uL (1.0-4.8) Monocytes # (Auto) 0.5 x10^3/uL (0.0-1.1) Eosinophils # (Auto) 0.3 x10^3/uL (0.0-0.7) Basophils # (Auto) 0.1 x10^3/uL (0.0-0.2) Sodium Level 141 mmol/L (136-145) Potassium Level 3.6 mmol/L (3.5-5.1) Chloride Level 106 mmol/L (98-107) Carbon Dioxide Level 29 mmol/L (21-32) Anion Gap 6 (6-14) Blood Urea Nitrogen 15 mg/dL (7-20) Creatinine 0.6 mg/dL (0.6-1.0) Estimated GFR (Cockcroft-Gault) 101.0 Glucose Level 157 mg/dL (70-99) Calcium Level 8.0 mg/dL (8.5-10.1) Phosphorus Level 3.9 mg/dL (2.6-4.7) Magnesium Level 2.2 mg/dL (1.8-2.4) O2 Saturation 94 % (92-99) Arterial Blood pH 7.50 (7.35-7.45) Arterial Blood pCO2 at Patient Temp 35 mmHg (35-46) Arterial Blood pO2 at Patient Temp 72 mmHg (65-108) Arterial Blood HCO3 26 mmol/L (21-28) Arterial Blood Base Excess 3 mmol/L (-3-3) FiO2 40% ac 20 450 5 Laboratory Tests Test 05/14/21 12:30 05/14/21 17:51 05/15/21 07:03 05/15/21 08:30 Glucose (Fingerstick) 123 mg/dL (70-99) 135 mg/dL (70-99) White Blood Count 10.2 x10^3/uL (4.0-11.0) Red Blood Count 2.61 x10^6/uL (3.50-5.40) Hemoglobin 7.7 g/dL (12.0-15.5) Hematocrit 23.3 % (36.0-47.0) Mean Corpuscular Volume 89 fL (79-100) Mean Corpuscular Hemoglobin 29 pg (25-35) Mean Corpuscular Hemoglobin Concent 33 g/dL (31-37) Red Cell Distribution Width 14.6 % (11.5-14.5) Platelet Count 375 x10^3/uL (140-400) Neutrophils (%) (Auto) 65 % (31-73) Lymphocytes (%) (Auto) 26 % (24-48) Monocytes (%) (Auto) 5 % (0-9) Eosinophils (%) (Auto) 3 % (0-3) Basophils (%) (Auto) 1 % (0-3) Neutrophils # (Auto) 6.6 x10^3/uL (1.8-7.7) Lymphocytes # (Auto) 2.7 x10^3/uL (1.0-4.8) Monocytes # (Auto) 0.5 x10^3/uL (0.0-1.1) Eosinophils # (Auto) 0.3 x10^3/uL (0.0-0.7) Basophils # (Auto) 0.1 x10^3/uL (0.0-0.2) Sodium Level 141 mmol/L (136-145) Potassium Level 3.6 mmol/L (3.5-5.1) Chloride Level 106 mmol/L (98-107) Carbon Dioxide Level 29 mmol/L (21-32) Anion Gap 6 (6-14) Blood Urea Nitrogen 15 mg/dL (7-20) Creatinine 0.6 mg/dL (0.6-1.0) Estimated GFR (Cockcroft-Gault) 101.0 Glucose Level 157 mg/dL (70-99) Calcium Level 8.0 mg/dL (8.5-10.1) Phosphorus Level 3.9 mg/dL (2.6-4.7) Magnesium Level 2.2 mg/dL (1.8-2.4) O2 Saturation 94 % (92-99) Arterial Blood pH 7.50 (7.35-7.45) Arterial Blood pCO2 at Patient Temp 35 mmHg (35-46) Arterial Blood pO2 at Patient Temp 72 mmHg (65-108) Arterial Blood HCO3 26 mmol/L (21-28) Arterial Blood Base Excess 3 mmol/L (-3-3) FiO2 40% ac 20 450 5 Medications Active Scripts Medications Dose Route/Sig Max Daily Dose Days Date Category Dose Instructions Easy Neb Compressor Nebulizer (Nebulizer and Compressor) 1 Each Each Each MC PRN PRN 05/01/21 Rx Use with albuterol as needed every 4 hours Albuterol Sulfate Neb Soln (Albuterol Sulfate) 2.5 Mg/3 Ml Vial.neb 1 Vial NEB PRN Q4HRS PRN 30 05/01/21 Rx Levofloxacin 750 Mg Tablet 1 Tab PO DAILY 5 05/01/21 Rx Seroquel (Quetiapine Fumarate) 25 Mg Tablet 25 Mg PO BID 04/26/21 Reported Mysoline (Primidone) 50 Mg Tablet 50 Mg PO DAILY 04/26/21 Reported Escitalopram Oxalate 20 Mg Tablet 20 Mg PO DAILY 03/26/21 Reported Omeprazole 20 Mg Capsule.dr 20 Mg PO DAILY 03/26/21 Reported Eliquis (Apixaban) 5 Mg Tablet 5 Mg PO BID 03/26/21 Reported Lasix (Furosemide) 40 Mg Tablet 40 Mg PO DAILY 03/26/21 Reported Comments Chest x-ray reviewed 05/14/2021 Unchanged bilateral interstitial infiltrates CT neck 05/07/2021 No definite tracheal stenosis seen. Impression . 1. Acute hypoxic respiratory failure secondary to likely hypoxic respiratory arrest leading to cardiac arrest.This is her second intubation in a week, . H/o tracheostomy 2. The patient with underlying history of COVID-19 viral pneumonia in late November and early December, had a trach, decannulated.. She required another hospitalization few weeks ago with respiratory failure, but was successfully extubated. April 27, 2021 3. Status post tracheostomy followed by decannulation.. November, December, 2020 [facility] 4[address] CT revealed no tracheal stenosis, 05/07 5. Underlying obesity. 6. Chronic interstitial lung disease 7. History of bleeding around trach 8. Anemia 9. Left upper extremity weakness. ct head neg Page of Plan . Updated 05/15 Patient to undergo trach Continue current settings Follow x-ray Continue Eliquis Finish course of antibiotics Nutritional support CCT 30-minute 05/14 1. cont vent support setting reviewed, FiO2, keep saturation 94% and above. 2. Continue empiric antibiotics. 3. Follow up chest x-rays reviewed Severe diffuse pulmonary opacities, 4. Continue to hold Eliquis. Follow-up hemoglobin still low. 5. CT of the neck without any tracheal stenosis. She continues to have moderate secretions and a weak cough. She will be at risk for respiratory a rrest in the future 6. SCDs for DVT prophylaxis and hold off Lovenox. No further endotracheal bleeding seen but hemoglobin trending down. 7. PPI for stress ulcer prophylaxis. 8. Discussed with RN. Chart reviewed, imaging studies reviewed. 9. Awaiting Dr. Osullivan's recommendation for tracheostomy. 10. I had a long discussion with patient's son at the bedside05/11 I did explai n to him that her 2 respiratory arrest recently are probably caused by inability to clear mucus. She probably may have upper airway narrowing/subglottic stenosis. surgical consult for tracheostomy placement Discussed with RN and RT. KASHMIR BLISS MD May 15, 2021 09:24
[2021-05-15] MEDS ORDERED: ROCURONIUM 50 MG/5 ML VIAL. ONE (09:49)
[2021-05-15] MEDS ORDERED: BUPIVACAINE-EPI 0.5% 30 ML VIAL KIT. INJ ONE (09:49)
[2021-05-15] MEDS ORDERED: SURGICEL HEMOSTAT 2X14 EACH. SURGSITE ONE (09:49)
[2021-05-15] MEDS ORDERED: SURGICEL FIBRILLAR 1X2 EACH. TP ONE (09:49)
[2021-05-15] MEDS ORDERED: SURGICEL HEMOSTAT 2X14 EACH. ONE (10:00)
[2021-05-15] MEDS: MIDAZOLAM 100mg/100ml NS BAG 100 ML IV PRN ×2 (10:17→17:19)
--- NOTE | 2021-05-15 10:23 | PDOC4 ---
OPERATIVE NOTE Date: Date: May 15, 2021 Pre-Op Diagnosis: Respiratory failure Post-Op Diagnosis: same Procedure Performed: tracheostomy placement, specifically 7 XLT Surgeon: Suleiman Mckenna Anesthesia Type: GETA plus local Blood Loss: 50 Specimans Obtained: none Findings: scar at trachea, appropriate, no obvious tracheal stenosis Complications: none Operative Note: After obtaining informed consent, patient was taken to OR, induced under GETA and prepped in the usual fashion over anterior neck. Transverse incision was reopened with cautery. Tracheal scar palpated. Sharply opened with 15 blade. Lumen identified with ET tube. ET drawn back by anesthesia and tracheostomy introduced under direct vision. End tidal CO2 detected and patient successfully oxygenated and ventilated. Anesthesia performed bronchoscopy which did not demonstrate obvious stricture. Surgicel placed around tracheostomy. Tracheostomy secured with 3 0 prolene and collar. Dressing placed. Patient tolerated procedure well and sent to PACU in stable condition. All counts correct. Wound class is 4. VENESSA MCKENNA MD May 15, 2021 10:23
--- NOTE | 2021-05-15 11:16 | PDOC ---
[employer] PROGRESS NOTE Date of Service DOS: DATE: 05/15/21 TIME: 11:14 Chief Complaint Chief Complaint Respiratory failure Probable bacterial pneumonia Recent COVID-19 in November of last year Possible tracheal [place] History of tracheostomy with decannulation Chronic anticoagulation with some hemoptysis Septic shock Lactic acidosis Acute hypoxic respiratory failure secondary to likely bacterial pneumonia versus viral pneumonia, septic shock, lactic acidosis History of Present Illness History of Present Illness 05/15/2021 Patient seen and examined in the ICU She remains on the vent AC/20/450/40 percent with 5 of PEEP Satting 97% Sedated with propofol and fentanyl Discussed with general surgeon he is going to take her for a trach today Chart reviewed Discussed with RN 05/14/2021 Patient seen and examined in the ICU Discussed with RN Chart reviewed She remains on the vent AC/20/450/40 percent with 5 PEEP Rectal bag in place Simon to bedside drainage SCDs are in place OG feeds running at 45 cc an hour Mitts on for patient safety 05/11/2021 Patient seen and examined in the ICU She remains on the vent AC/20/450/40 percent with 5 of PEEP OG feeds at 45 cc an hour Sedated with Dex Has several family members present. 1 son named Tushar is here who I think is the DPOA They're discussing whether to go forward with tracheostomy Chart reviewed Discussed with RN She remains critically ill 05/10/2021 Patient seen and examined in the ICU She remains on the vent AC/20/450/40 percent with 5 PEEP Sedated with Dex Mitt on the right hand left hand not moving much per RN SCDs in place Simon to bedside drainage Chart reviewed Discussed with RN She remains extremely critically ill 05/09/2021 Patient seen and examined in the ICU Remains on the ventilator AC/20/450/40 +5 of PEEP Chart reviewed Discussed with RN He remains critically ill 05/08/2021 Patient seen and examined in the ICU She remains on the vent AC/20/450 with 40% FiO2 and 5 of PEEP Sedated with fentanyl and Versed On IV Levophed Discussed with RN Chart reviewed She remains very critically ill 05/07/2021 Patient seen and examined in the ICU He remains on the vent AC/20/450/40 percent with 5 of PEEP Sedated with Versed fentanyl and propofol Discussed with RN Chart reviewed She remains very critically ill 05/06/2021 Patient seen and examined in the ICU She remains on the ventilator AC/20/450/50 percent with 5 of PEEP OG at 40 cc an hour Sedated with fentanyl and propofol and Versed Has Simon to bedside drainage SCDs are in place Chart reviewed Discussed with RN She remains critically ill 05/05/2021 Patient seen and examined in the ICU She remains on the ventilator AC/20/450/50 percent with 5 of PEEP Simon bedside drainage SCDs in place OG at 30 cc an hour Sedated with fentanyl propofol and Versed Chart reviewed Discussed with RN She remains critically ill 05/04/2021 Patient seen and examined in the ICU She is currently on the vent AC/20/450/50 +5 of PEEP Chart reviewed Discussed with RN She is sedated with Versed fentanyl Has IV Levophed hanging Vitals/I&O Vitals/I&O: Vital Signs Date Time Temp Pulse Resp B/P (MAP) Pulse Ox O2 Delivery O2 Flow Rate FiO2 05/15/21 08:26 97 Ventilator 05/15/21 08:17 97.0 05/15/21 08:00 97.7 48 24 90/50 97.7 I & O 05/14/21 05/14/21 05/15/21 15:00 23:00 07:00 Intake Total 200 ml 1175 ml 892.1 ml Output Total 660 ml 1690 ml 225 ml Balance -460 ml -515 ml 667.1 ml Physical Exam General: No acute distress, Other (orally intubated) Heart: Regular rate Lungs: Other (Decreased breath sounds) Abdomen: Normal bowel sounds Extremities: No clubbing, No cyanosis Skin: No significant lesion Labs Labs: Laboratory Tests Test 05/14/21 12:30 05/14/21 17:51 05/15/21 07:03 05/15/21 08:30 Glucose (Fingerstick) 123 mg/dL (70-99) 135 mg/dL (70-99) White Blood Count 10.2 x10^3/uL (4.0-11.0) Red Blood Count 2.61 x10^6/uL (3.50-5.40) Hemoglobin 7.7 g/dL (12.0-15.5) Hematocrit 23.3 % (36.0-47.0) Mean Corpuscular Volume 89 fL (79-100) Mean Corpuscular Hemoglobin 29 pg (25-35) Mean Corpuscular Hemoglobin Concent 33 g/dL (31-37) Red Cell Distribution Width 14.6 % (11.5-14.5) Platelet Count 375 x10^3/uL (140-400) Neutrophils (%) (Auto) 65 % (31-73) Lymphocytes (%) (Auto) 26 % (24-48) Monocytes (%) (Auto) 5 % (0-9) Eosinophils (%) (Auto) 3 % (0-3) Basophils (%) (Auto) 1 % (0-3) Neutrophils # (Auto) 6.6 x10^3/uL (1.8-7.7) Lymphocytes # (Auto) 2.7 x10^3/uL (1.0-4.8) Monocytes # (Auto) 0.5 x10^3/uL (0.0-1.1) Eosinophils # (Auto) 0.3 x10^3/uL (0.0-0.7) Basophils # (Auto) 0.1 x10^3/uL (0.0-0.2) Sodium Level 141 mmol/L (136-145) Potassium Level 3.6 mmol/L (3.5-5.1) Chloride Level 106 mmol/L (98-107) Carbon Dioxide Level 29 mmol/L (21-32) Anion Gap 6 (6-14) Blood Urea Nitrogen 15 mg/dL (7-20) Creatinine 0.6 mg/dL (0.6-1.0) Estimated GFR (Cockcroft-Gault) 101.0 Glucose Level 157 mg/dL (70-99) Calcium Level 8.0 mg/dL (8.5-10.1) Phosphorus Level 3.9 mg/dL (2.6-4.7) Magnesium Level 2.2 mg/dL (1.8-2.4) O2 Saturation 94 % (92-99) Arterial Blood pH 7.50 (7.35-7.45) Arterial Blood pCO2 at Patient Temp 35 mmHg (35-46) Arterial Blood pO2 at Patient Temp 72 mmHg (65-108) Arterial Blood HCO3 26 mmol/L (21-28) Arterial Blood Base Excess 3 mmol/L (-3-3) FiO2 40% ac 20 450 5 Assessment and Plan Assessmemt and Plan Problems Medical Problems: (1) Cardiac arrest Status: Acute (2) Hypokalemia Status: Acute (3) Lactic acidosis Status: Acute (4) Pneumonia Status: Acute (5) Respiratory failure, acute Status: Acute (6) Septic shock Status: Acute Respiratory failure Probable bacterial pneumonia Recent COVID-19 in November of last year Possible tracheal [place] History of tracheostomy with decannulation Chronic anticoagulation with some hemoptysis Septic shock Lactic acidosis Acute hypoxic respiratory failure secondary to likely bacterial pneumonia versus viral pneumonia, septic shock, lactic acidosis Plan Going for tracheostomy and just a few minutes For now continue the following: ICU monitoring Vent weaning IV antibiotics As needed sedation with Dex OG feeds Maintenance IV Trying to wean off Levophed Supportive care Monitor rectal bag Mitt for patient safety Home meds if possible Trend labs Appreciate subspecialist input DVT prophylaxis Full code Prognosis long-term guarded but somewhat improved CC time 33 minutes Comment Review of Relevant I have reviewed the following items davina (where applicable) has been applied. Medications: Current Medications Medications (Trade) Dose Ordered Sig/Qing Route PRN Reason Start Time Stop Time Status Last Admin Dose Admin Ringer's Solution 1,000 ml @ 30 mls/hr Q24H IV 05/15/21 06:00 05/15/21 17:59 05/15/21 03:50 Fentanyl Citrate 55 ml @ 1 mls/hr CONT PRN PRN IV SEE PROTOCOL 05/15/21 07:45 05/15/21 07:47 Midazolam HCl (Versed) 5 mg 1X ONCE IVP 05/15/21 09:15 05/15/21 09:16 DC 05/15/21 09:20 Bupivacaine HCl/ Epinephrine Bitart (Sensorcain-Epi 0.5% Kit) 30 ml STK-MED ONCE INJ 05/15/21 09:49 05/15/21 10:12 DC 05/15/21 09:49 Cellulose (Surgicel Fibrillar 1x2) 1 each STK-MED ONCE TP 05/15/21 09:49 05/15/21 10:12 DC 05/15/21 09:49 Cellulose (Surgicel Hemostat 2x14) 1 each STK-MED ONCE SURGSITE 05/15/21 09:49 05/15/21 10:12 DC 05/15/21 09:49 Justifications for Admission Other Justification LUCERO PERAZA III DO May 15, 2021 11:16
--- NOTE | 2021-05-15 12:00 | NUR ---
Rapid titration note: S/p trach placement by dr. Yap. Versed, propofol, and fentanyl rapidly titrated to achieve RASS score of -[address] Yap. Current rate are versed 10 mg/hr, propofol 30mcg/kg/min and fentanyl 100 mcg/hr. Precedex stopped d/t to bradycardia.
--- NOTE | 2021-05-15 13:21 | CARD ---
MR#: [id number] Date of Study: 05/15/2021 Ordering Physician: STONE BUSBY, Referring Physician: STONE BUSBY, Tech: Germania Huitron [facility] APPROVED REPORT EXAM: Two-dimensional and M-mode echocardiogram with Doppler and color Doppler. Other Information Quality : Technically LimitedHR: 54bpm Rhythm : NSRTechnically limited study due to Obese, On vent INDICATION RISK FACTORS Hypertension Obesity 2D DIMENSIONS RVDd3.2 (2.9-3.5cm)Left Atrium(2D)4.4 (1.6-4.0cm) IVSd1.2 (0.7-1.1cm)Aortic Root(2D)3.1 (2.0-3.7cm) LVDd4.6 (3.9-5.9cm)LVOT Diameter1.9 (1.8-2.4cm) PWd1.2 (0.7-1.1cm)LVDs2.5 (2.5-4.0cm) FS (%) 44.9 %SV73.7 ml LVEF(%)76.2 (>50%) Aortic Valve AoV Peak Moe.177.6cm/sAoV VTI37.7cm AO Peak GR.12.6mmHgLVOT Peak Moe.137.2cm/s AO Mean GR.6mmHgAVA (VMAX)2.20cm2 Mitral Valve MV E Dwxgwvmy50.6cm/sMV DECEL [id number] MV A Gjaplaxc097.8cm/sE/A Ratio0.8 Pulmonary Valve PV Peak Wdssjrak767.9cm/s Tricuspid Valve TR P. Zigixztj742zh/sTR Peak Gr.37mmHg LEFT VENTRICLE The left ventricle is normal size. There is mild concentric left ventricular hypertrophy. The left ve ntricular systolic function is normal and the ejection fraction is within normal range. Estimated eje ction fraction 65%. There is normal LV segmental wall motion. Transmitral Doppler flow pattern is Gra de I-abnormal relaxation pattern. RIGHT VENTRICLE The right ventricle is normal size. There is normal right ventricular wall thickness. The right ventr icular systolic function is normal. ATRIA The left atrium size is normal. The right atrium size is normal. The interatrial septum is intact wit h no evidence for an atrial septal defect or patent foramen ovale as noted on 2-D or Doppler imaging. AORTIC VALVE The aortic valve is normal in structure and function. Doppler and Color Flow revealed no significant aortic regurgitation. There is no significant aortic valvular stenosis. MITRAL VALVE The mitral valve is normal in structure and function. There is no evidence of mitral valve prolapse. There is no mitral valve stenosis. Doppler and Color Flow revealed no mitral valve regurgitation note d. TRICUSPID VALVE The tricuspid valve is normal in structure and function. Doppler and Color Flow revealed moderate tri cuspid regurgitation. Estimated PAP 50-52 mmHg. There is no tricuspid valve stenosis. PULMONIC VALVE Doppler and Color Flow revealed trace pulmonic valvular regurgitation. There is no pulmonic valvular stenosis. GREAT VESSELS The aortic root is normal in size. The ascending aorta is normal in size. The IVC is dilated and brady apses <50% with inspiration. PERICARDIAL EFFUSION There is no evidence of significant pericardial effusion. Critical Notification Critical Value: No <Conclusion> The left ventricular systolic function is normal and the ejection fraction is within normal range. E stimated ejection fraction 65%. There is normal LV segmental wall motion. Doppler and Color Flow revealed moderate tricuspid regurgitation. Estimated PAP 50-52 mmHg. Signed by : Stone Busby, Electronically Approved : 05/15/2021 13:21:09
--- NOTE | 2021-05-15 15:41 | NUR ---
SS following up with discharge planning. SS reviewed pt chart and discussed with pt RN. Pt is currently on the vent at 40%. COVID19 negative. Trach placed today. Tube feeds. Pt on Propofol, Fentanyl, and Versed. SS contacted pt's son, Tushar, and discussed LTACH. Pt's son agreeable to LTACH at either [facility], ; fax [phone], or [facility], ; fax [phone]. Referrals sent to [facility] and [facility]. [facility] contacted SS and reported that they are not currently in network with pt's insurance. SS currently awaiting acceptance decision from [facility] and will proceed accordingly with discharge planning.
--- NOTE | 2021-05-15 16:29 | PDOC ---
PROGRESS NOTES Date of Service DATE: 05/15/21 TIME: 16:26 Subjective Subjective Patient seen and examined Objective Objective Vital Signs Date Time Temp Pulse Resp B/P (MAP) Pulse Ox O2 Delivery O2 Flow Rate FiO2 05/15/21 15:58 99 Ventilator 05/15/21 15:00 53 20 90/45 05/15/21 12:00 98.6 98.6 05/15/21 08:17 97.0 Intake and Output 05/15/21 07:00 Intake Total 2267.1 ml Output Total 2575 ml Balance -307.9 ml IV Total 218.1 ml Tube Feeding 1648 ml Other 401 ml Output Urine Total 2575 ml Gastric Drainage Total 0 ml Physical Exam Abdomen: Normal bowel sounds Heart: Regular rate General: Other (On a ventilator) Lungs: Other (Mildly decreased breath sounds) Assessment Assessment Problems Medical Problems: (1) Cardiac arrest Status: Acute (2) Hypokalemia Status: Acute (3) Lactic acidosis Status: Acute (4) Pneumonia Status: Acute (5) Respiratory failure, acute Status: Acute (6) Septic shock Status: Acute 1. Out of hospital acute cardiopulmonary arrest. Significant downtime. The patient remains on a ventilator. Continue supportive treatment and antibiotics. 2. Respiratory failure. Redo of tracheostomy today. Followed by the pulmonary service. 2. Recent treatment with Eliquis. I can find no history of atrial fibrillation or other indications for chronic anticoagulation. Holding Eliquis. Monitoring lab. 3. Septic shock. Continue on antibiotics. Tracheostomy today as outlined above. Pressors as needed. Slow improvement. 4. Hypokalemia. Initial potassium of 2.6. Continue replacement and monito ring. Comment Review of Relevant I have reviewed the following items davina (where applicable) has been applied. Labs Laboratory Tests Test 05/14/21 05:11 05/14/21 07:30 05/14/21 12:30 05/14/21 17:51 White Blood Count 7.5 x10^3/uL (4.0-11.0) Red Blood Count 2.46 x10^6/uL (3.50-5.40) Hemoglobin 7.0 g/dL (12.0-15.5) Hematocrit 21.9 % (36.0-47.0) Mean Corpuscular Volume 89 fL (79-100) Mean Corpuscular Hemoglobin 29 pg (25-35) Mean Corpuscular Hemoglobin Concent 32 g/dL (31-37) Red Cell Distribution Width 14.7 % (11.5-14.5) Platelet Count 330 x10^3/uL (140-400) Neutrophils (%) (Auto) 65 % (31-73) Lymphocytes (%) (Auto) 21 % (24-48) Monocytes (%) (Auto) 9 % (0-9) Eosinophils (%) (Auto) 5 % (0-3) Basophils (%) (Auto) 1 % (0-3) Neutrophils # (Auto) 4.9 x10^3/uL (1.8-7.7) Lymphocytes # (Auto) 1.5 x10^3/uL (1.0-4.8) Monocytes # (Auto) 0.7 x10^3/uL (0.0-1.1) Eosinophils # (Auto) 0.4 x10^3/uL (0.0-0.7) Basophils # (Auto) 0.1 x10^3/uL (0.0-0.2) Sodium Level 141 mmol/L (136-145) Potassium Level 3.6 mmol/L (3.5-5.1) Chloride Level 104 mmol/L (98-107) Carbon Dioxide Level 28 mmol/L (21-32) Anion Gap 9 (6-14) Blood Urea Nitrogen 15 mg/dL (7-20) Creatinine 0.5 mg/dL (0.6-1.0) Estimated GFR (Cockcroft-Gault) 124.6 BUN/Creatinine Ratio 30 (6-20) Glucose Level 134 mg/dL (70-99) Calcium Level 8.0 mg/dL (8.5-10.1) Total Bilirubin 0.3 mg/dL (0.2-1.0) Aspartate Amino Transf (AST/SGOT) 33 U/L (15-37) Alanine Aminotransferase (ALT/SGPT) 105 U/L (14-59) Alkaline Phosphatase 144 U/L (46-116) Total Protein 5.7 g/dL (6.4-8.2) Albumin 2.1 g/dL (3.4-5.0) Albumin/Globulin Ratio 0.6 (1.0-1.7) O2 Saturation 96 % (92-99) Arterial Blood pH 7.47 (7.35-7.45) Arterial Blood pCO2 at Patient Temp 37 mmHg (35-46) Arterial Blood pO2 at Patient Temp 85 mmHg (65-108) Arterial Blood HCO3 26 mmol/L (21-28) Arterial Blood Base Excess 2 mmol/L (-3-3) FiO2 40 Glucose (Fingerstick) 123 mg/dL (70-99) 135 mg/dL (70-99) Test 05/15/21 07:03 05/15/21 08:30 05/15/21 11:13 White Blood Count 10.2 x10^3/uL (4.0-11.0) Red Blood Count 2.61 x10^6/uL (3.50-5.40) Hemoglobin 7.7 g/dL (12.0-15.5) Hematocrit 23.3 % (36.0-47.0) Mean Corpuscular Volume 89 fL (79-100) Mean Corpuscular Hemoglobin 29 pg (25-35) Mean Corpuscular Hemoglobin Concent 33 g/dL (31-37) Red Cell Distribution Width 14.6 % (11.5-14.5) Platelet Count 375 x10^3/uL (140-400) Neutrophils (%) (Auto) 65 % (31-73) Lymphocytes (%) (Auto) 26 % (24-48) Monocytes (%) (Auto) 5 % (0-9) Eosinophils (%) (Auto) 3 % (0-3) Basophils (%) (Auto) 1 % (0-3) Neutrophils # (Auto) 6.6 x10^3/uL (1.8-7.7) Lymphocytes # (Auto) 2.7 x10^3/uL (1.0-4.8) Monocytes # (Auto) 0.5 x10^3/uL (0.0-1.1) Eosinophils # (Auto) 0.3 x10^3/uL (0.0-0.7) Basophils # (Auto) 0.1 x10^3/uL (0.0-0.2) Sodium Level 141 mmol/L (136-145) Potassium Level 3.6 mmol/L (3.5-5.1) Chloride Level 106 mmol/L (98-107) Carbon Dioxide Level 29 mmol/L (21-32) Anion Gap 6 (6-14) Blood Urea Nitrogen 15 mg/dL (7-20) Creatinine 0.6 mg/dL (0.6-1.0) Estimated GFR (Cockcroft-Gault) 101.0 Glucose Level 157 mg/dL (70-99) Calcium Level 8.0 mg/dL (8.5-10.1) Phosphorus Level 3.9 mg/dL (2.6-4.7) Magnesium Level 2.2 mg/dL (1.8-2.4) O2 Saturation 94 % (92-99) Arterial Blood pH 7.50 (7.35-7.45) Arterial Blood pCO2 at Patient Temp 35 mmHg (35-46) Arterial Blood pO2 at Patient Temp 72 mmHg (65-108) Arterial Blood HCO3 26 mmol/L (21-28) Arterial Blood Base Excess 3 mmol/L (-3-3) FiO2 40% ac 20 450 5 Glucose (Fingerstick) 76 mg/dL (70-99) Laboratory Tests Test 05/14/21 17:51 05/15/21 07:03 05/15/21 08:30 05/15/21 11:13 Glucose (Fingerstick) 135 mg/dL (70-99) 76 mg/dL (70-99) White Blood Count 10.2 x10^3/uL (4.0-11.0) Red Blood Count 2.61 x10^6/uL (3.50-5.40) Hemoglobin 7.7 g/dL (12.0-15.5) Hematocrit 23.3 % (36.0-47.0) Mean Corpuscular Volume 89 fL (79-100) Mean Corpuscular Hemoglobin 29 pg (25-35) Mean Corpuscular Hemoglobin Concent 33 g/dL (31-37) Red Cell Distribution Width 14.6 % (11.5-14.5) Platelet Count 375 x10^3/uL (140-400) Neutrophils (%) (Auto) 65 % (31-73) Lymphocytes (%) (Auto) 26 % (24-48) Monocytes (%) (Auto) 5 % (0-9) Eosinophils (%) (Auto) 3 % (0-3) Basophils (%) (Auto) 1 % (0-3) Neutrophils # (Auto) 6.6 x10^3/uL (1.8-7.7) Lymphocytes # (Auto) 2.7 x10^3/uL (1.0-4.8) Monocytes # (Auto) 0.5 x10^3/uL (0.0-1.1) Eosinophils # (Auto) 0.3 x10^3/uL (0.0-0.7) Basophils # (Auto) 0.1 x10^3/uL (0.0-0.2) Sodium Level 141 mmol/L (136-145) Potassium Level 3.6 mmol/L (3.5-5.1) Chloride Level 106 mmol/L (98-107) Carbon Dioxide Level 29 mmol/L (21-32) Anion Gap 6 (6-14) Blood Urea Nitrogen 15 mg/dL (7-20) Creatinine 0.6 mg/dL (0.6-1.0) Estimated GFR (Cockcroft-Gault) 101.0 Glucose Level 157 mg/dL (70-99) Calcium Level 8.0 mg/dL (8.5-10.1) Phosphorus Level 3.9 mg/dL (2.6-4.7) Magnesium Level 2.2 mg/dL (1.8-2.4) O2 Saturation 94 % (92-99) Arterial Blood pH 7.50 (7.35-7.45) Arterial Blood pCO2 at Patient Temp 35 mmHg (35-46) Arterial Blood pO2 at Patient Temp 72 mmHg (65-108) Arterial Blood HCO3 26 mmol/L (21-28) Arterial Blood Base Excess 3 mmol/L (-3-3) FiO2 40% ac 20 450 5 Microbiology 05/03/21 Blood Culture - Final, Complete NO GROWTH AFTER 5 DAYS Medications Current Medications Propofol 100 ml @ As Directed STK-MED ONCE IV ; Start 05/03/21 at 10:43; Stop 05/03/21 at 10:43; Status DC Norepinephrine Bitartrate 8 mg/ Dextrose 258 ml @ 19.35 mls/ hr 1X ONCE IV Last administered on 05/03/21at 11:20; Start 05/03/21 at 11:15; Stop 05/04/21 at 00:34; Status DC Propofol (Diprivan) 200 mg TITRATE ONCE IV ; Start 05/03/21 at 11:45; Stop 05/03/21 at 11:46; Status UNV Propofol 100 ml @ 3 mls/hr CONT PRN IV PER PROTOCOL Last administered on 05/03/21at 10:50; Start 05/03/21 at 11:45; Stop 05/03/21 at 12:49; Status DC Cefepime HCl (Maxipime) 2 gm 1X ONCE IVP Last administered on 05/03/21at 11:45; Start 05/03/21 at 11:45; Stop 05/03/21 at 11:46; Status DC Vancomycin HCl 1.5 gm/Sodium Chloride 500 ml @ 250 mls/hr 1X ONCE IV ; Start 05/03/21 at 11:45; Stop 05/03/21 at 13:44; Status UNV Sodium Chloride 1,000 ml @ 1,000 mls/hr 1X ONCE IV Last administered on 05/03/21at 10:50; Start 05/03/21 at 11:45; Stop 05/03/21 at 12:44; Status DC Sodium Chloride 1,000 ml @ 1,000 mls/hr 1X ONCE IV Last administered on 05/03/21at 11:00; Start 05/03/21 at 11:45; Stop 05/03/21 at 12:44; Status DC Sodium Chloride 1,000 ml @ 250 mls/hr Q4H IV Last administered on 05/04/21at 03:45; Start 05/03/21 at 11:45; Stop 05/04/21 at 11:44; Status DC Vancomycin HCl 2 gm/Sodium Chloride 500 ml @ 250 mls/hr 1X ONCE IV Last administered on 05/03/21at 12:00; Start 05/03/21 at 12:00; Stop 05/03/21 at 13:59; Status DC Potassium Bicarbonate (Potassium Effervescent Tablet) 40 meq 1X ONCE NG Last administered on 05/03/21at 15:01; Start 05/03/21 at 12:00; Stop 05/03/21 at 12:01; Status DC Potassium Chloride/Water 100 ml @ 100 mls/hr Q1H IV ; Start 05/03/21 at 12:00; Stop 05/03/21 at 12:04; Status DC Apixaban (Eliquis) 5 mg BID PO ; Start 05/03/21 at 21:00; Stop 05/03/21 at 15:54; Status DC Primidone (Mysoline) 50 mg DAILY PO Last administered on 05/15/21at 07:48; Start 05/04/21 at 09:00 Quetiapine Fumarate (SEROquel) 25 mg BID PO Last administered on 05/15/21at 07:48; Start 05/03/21 at 21:00 Citalopram Hydrobromide (CeleXA) 20 mg DAILY PO Last administered on 05/15/21at 07:48; Start 05/04/21 at 09:00 Pantoprazole Sodium (PROTONIX VIAL for IV PUSH) 40 mg DAILYAC IVP Last administered on 05/15/21at 08:00; Start 05/04/21 at 07:30 Potassium Chloride/Water 100 ml @ 100 mls/hr Q1H IV Last administered on 05/03/21at 13:43; Start 05/03/21 at 12:00; Stop 05/03/21 at 13:59; Status DC Magnesium Sulfate 50 ml @ 25 mls/hr 1X ONCE IV Last administered on 05/03/21at 15:00; Start 05/03/21 at 12:00; Stop 05/03/21 at 13:59; Status DC Ondansetron HCl (Zofran) 4 mg PRN Q6HRS PRN IVP NAUSEA/VOMITING; Start 05/03/21 at 12:00 Calcium Carbonate/ Glycine (Tums) 500 mg PRN Q3HRS PRN PO HEARTBURN / GAS; Start 05/03/21 at 12:00 Info (Icu Electrolyte Protocol) 1 ea DAILY MC Last administered on 05/13/21at 09:00; Start 05/04/21 at 09:00 Sodium Chloride (Normal Saline Flush) 3 ml QSHIFT PRN IV AFTER MEDS AND BLOOD DRAWS; Start 05/03/21 at 12:00 Potassium Chloride/Water 100 ml @ 100 mls/hr Q1H IV Last administered on 05/03/21at 15:57; Start 05/03/21 at 14:00; Stop 05/03/21 at 15:59; Status DC Fentanyl Citrate 30 ml @ 2.5 mls/hr CONT PRN IV SEE PROTOCOL Last administered on 05/08/21at 06:54; Start 05/03/21 at 12:45; Stop 05/15/21 at 07:41; Status DC Midazolam HCl 100 ml @ 1 mls/hr CONT PRN IV SEE PROTOCOL Last administered on 05/15/21at 10:17; Start 05/03/21 at 12:45 Propofol 100 ml @ 3 mls/hr CONT PRN IV PER PROTOCOL Last administered on 05/15/21at 13:06; Start 05/03/21 at 12:45 Vecuronium [place] (Norcuron Bolus) 6 mg PRN 1X PRN IV VENT INDUCTION; Start 05/03/21 at 12:45; Stop 05/04/21 at 12:44; Status DC Dexmedetomidine HCl 400 mcg/ Sodium Chloride 100 ml @ 7,500 mls/hr CONT PRN IV PER PROTOCOL Last administered on 05/09/21at 10:42; Start 05/03/21 at 12:45; Stop 05/09/21 at 10:49; Status DC Iohexol (Omnipaque 350 Mg/ml) 100 ml 1X ONCE IV Last administered on 05/03/21at 12:58; Start 05/03/21 at 13:00; Stop 05/03/21 at 13:01; Status DC Info (CONTRAST GIVEN -- Rx MONITORING) 1 each PRN DAILY PRN MC SEE COMMENTS; Start 05/03/21 at 13:00; Stop 05/05/21 at 12:59; Status DC Piperacillin Sod/ Tazobactam Sod (Zosyn Per Pharmacy) 1 each PRN DAILY PRN MC SEE COMMENTS; Start 05/03/21 at 15:15; Stop 05/03/21 at 15:07; Status DC Vancomycin HCl (Vanco Per Pharmacy) 1 each PRN DAILY PRN MC SEE COMMENTS Last administered on 05/11/21at 09:00; Start 05/03/21 at 15:15; Stop 05/11/21 at 14:19; Status DC Cefepime HCl (Maxipime) 1 gm Q8HRS IVP ; Start 05/03/21 at 15:30; Status Cancel Insulin Human Lispro (HumaLOG) 0-7 UNITS TIDWMEALS SQ ; Start 05/03/21 at 17:00; Stop 05/07/21 at 07:52; Status DC Dextrose (Dextrose 50%-Water Syringe) 12.5 gm PRN Q15MIN PRN IV SEE COMMENTS; Start 05/03/21 at 15:15; Stop 05/07/21 at 07:53; Status DC Cefepime HCl (Maxipime) 1 gm Q8HRS IVP Last administered on 05/14/21at 14:23; Start 05/03/21 at 22:00; Stop 05/14/21 at 14:49; Status DC Methylprednisolone Sodium Succinate (SOLU-Medrol 125MG VIAL) 125 mg 1X ONCE IV Last administered on 05/03/21at 15:56; Start 05/03/21 at 15:30; Stop 05/03/21 at 15:31; Status DC Vancomycin HCl 1 gm/Sodium Chloride 250 ml @ 250 mls/hr Q12H IV Last administered on 05/10/21at 00:06; Start 05/04/21 at 00:00; Stop 05/10/21 at 10:46; Status DC Vancomycin HCl (Vancomycin Trough Level) 1 each 1X ONCE MC ; Start 05/04/21 at 23:30; Stop 05/04/21 at 23:31; Status DC Potassium Chloride/Water 100 ml @ 100 mls/hr Q1H IV Last administered on 05/04/21at 09:38; Start 05/04/21 at 08:00; Stop 05/04/21 at 09:59; Status DC Calcium Chloride (Calcium Chloride) 1,000 mg STK-MED ONCE .ROUTE ; Start 05/03/21 at 11:00; Stop 05/04/21 at 12:23; Status DC Sodium Bicarbonate (Sodium Bicarb Adult 8.4% Syr) 50 meq STK-MED ONCE .ROUTE ; Start 05/03/21 at 11:00; Stop 05/04/21 at 12:23; Status DC Epinephrine HCl (EPINEPHrine SYRINGE) 3 mg STK-MED ONCE .ROUTE ; Start 05/03/21 at 11:00; Stop 05/04/21 at 12:23; Status DC Potassium Chloride/Water 100 ml @ 100 mls/hr Q1H IV Last administered on 05/05/21at 12:19; Start 05/05/21 at 09:00; Stop 05/05/21 at 12:59; Status DC Potassium Chloride/Water 100 ml @ 100 mls/hr Q1H IV Last administered on 05/06/21at 11:05; Start 05/06/21 at 10:00; Stop 05/06/21 at 11:59; Status DC Insulin Human Lispro (HumaLOG) 0-7 UNITS Q6HRS SQ ; Start 05/07/21 at 12:00; Stop 05/10/21 at 11:00; Status DC Dextrose (Dextrose 50%-Water Syringe) 12.5 gm PRN Q15MIN PRN IV SEE COMMENTS; Start 05/07/21 at 08:00 Norepinephrine Bitartrate 8 mg/ Dextrose 258 ml @ 21.672 mls/ hr CONT PRN IV PER PROTOCOL Last administered on 05/07/21at 11:40; Start 05/07/21 at 11:30 Vancomycin HCl (Vancomycin Trough Level) 1 each 1X ONCE MC ; Start 05/09/21 at 11:30; Stop 05/09/21 at 11:31; Status DC Metoprolol Tartrate (Lopressor Vial) 5 mg PRN Q6HRS PRN IVP HYPERTENSION Last administered on 05/14/21at 16:51; Start 05/09/21 at 03:45 Scopolamine (Transderm-Scop) 1 patch Q3DAYS TD Last administered on 05/15/21at 07:49; Start 05/09/21 at 10:00 Dexmedetomidine HCl 400 mcg/ Sodium Chloride 100 ml @ 7,500 mls/hr CONT PRN IV PER PROTOCOL; Start 05/09/21 at 11:00; Stop 05/09/21 at 10:56; Status DC Dexmedetomidine HCl 400 mcg/ Sodium Chloride 100 ml @ 5 mls/hr CONT PRN IV PER PROTOCOL Last administered on 05/15/21at 03:51; Start 05/09/21 at 11:00 Potassium Bicarbonate (Potassium Effervescent Tablet) 20 meq 1X ONCE PEG Last administered on 05/09/21at 13:56; Start 05/09/21 at 14:00; Stop 05/09/21 at 14:01; Status DC Potassium Bicarbonate (Potassium Effervescent Tablet) 40 meq 1X ONCE PEG Last administered on 05/10/21at 10:23; Start 05/10/21 at 10:00; Stop 05/10/21 at 10:01; Status DC Vancomycin HCl 1.25 gm/Sodium Chloride 250 ml @ 167 mls/hr Q12H IV Last administered on 05/11/21at 11:34; Start 05/10/21 at 12:00; Stop 05/11/21 at 14:19; Status DC Potassium Bicarbonate (Potassium Effervescent Tablet) 40 meq 1X ONCE PO Last administered on 05/11/21at 10:55; Start 05/11/21 at 08:30; Stop 05/11/21 at 08:31; Status DC Midazolam HCl (Versed) 5 mg 1X ONCE IVP Last administered on 05/11/21at 11:34; Start 05/11/21 at 11:30; Stop 05/11/21 at 11:32; Status DC Potassium Chloride/Water 100 ml @ 100 mls/hr Q1H IV Last administered on 05/13/21at 10:23; Start 05/13/21 at 08:30; Stop 05/13/21 at 10:29; Status DC Fentanyl Citrate (Fentanyl 2ml Vial) 25 mcg PRN Q5MIN PRN IVP MILD PAIN 1-3; Start 05/15/21 at 06:00; Stop 05/15/21 at 20:00 Fentanyl Citrate (Fentanyl 2ml Vial) 50 mcg PRN Q5MIN PRN IVP MODERATE PAIN 4- 6; Start 05/15/21 at 06:00; Stop 05/15/21 at 20:00 Morphine Sulfate (Morphine Sulfate) 1 mg PRN Q10MIN PRN IVP SEVERE PAIN 7-10; Start 05/15/21 at 06:00; Stop 05/15/21 at 20:00 Ringer's Solution 1,000 ml @ 30 mls/hr Q24H IV Last administered on 05/15/21at 03:50; Start 05/15/21 at 06:00; Stop 05/15/21 at 17:59 Hydromorphone HCl (Dilaudid) 0.5 mg PRN Q10MIN PRN IVP SEVERE PAIN 7-10, 2nd CHOICE; Start 05/15/21 at 06:00; Stop 05/15/21 at 20:00 Prochlorperazine Edisylate (Compazine) 5 mg PACU PRN PRN IVP NAUSEA, MRX1; Start 05/15/21 at 06:00; Stop 05/15/21 at 20:00 Fentanyl Citrate 55 ml @ 1 mls/hr CONT PRN PRN IV SEE PROTOCOL Last administered on 05/15/21at 07:47; Start 05/15/21 at 07:45 Perflutren Protein Type A Microsphe (Optison) 0.66 mg 1X ONCE IV ; Start 05/15/21 at 07:45; Stop 05/15/21 at 07:46; Status DC Midazolam HCl (Versed) 5 mg 1X ONCE IVP Last administered on 05/15/21at 09:20; Start 05/15/21 at 09:15; Stop 05/15/21 at 09:16; Status DC Bupivacaine HCl/ Epinephrine Bitart (Sensorcain-Epi 0.5% Kit) 30 ml STK-MED ONCE INJ Last administered on 05/15/21at 09:49; Start 05/15/21 at 09:49; Stop 05/15/21 at 10:12; Status DC Cellulose (Surgicel Fibrillar 1x2) 1 each STK-MED ONCE TP Last administered on 05/15/21at 09:49; Start 05/15/21 at 09:49; Stop 05/15/21 at 10:12; Status DC Cellulose (Surgicel Hemostat 2x14) 1 each STK-MED ONCE SURGSITE Last administered on 05/15/21at 09:49; Start 05/15/21 at 09:49; Stop 05/15/21 at 10:12; Status DC Perflutren Protein Type A Microsphe (Optison) 0.66 mg STK-MED ONCE IV ; Start 05/15/21 at 07:00; Stop 05/15/21 at 13:03; Status DC Midazolam HCl (Versed) 5 mg STK-MED ONCE .ROUTE ; Start 05/11/21 at 11:32; Stop 05/15/21 at 13:06; Status DC Perflutren Protein Type A Microsphe (Optison) 0.66 mg STK-MED ONCE IV ; Start 05/15/21 at 06:29; Stop 05/15/21 at 13:44; Status DC Rocuronium [place] (Zemuron) 100 mg STK-MED ONCE .ROUTE ; Start 05/15/21 at 08:39; Stop 05/15/21 at 13:48; Status DC Fentanyl Citrate (Fentanyl 2ml Vial) 100 mcg STK-MED ONCE .ROUTE ; Start 05/15/21 at 08:39; Stop 05/15/21 at 13:48; Status DC Cellulose (Surgicel Fibrillar 1x2) 1 each STK-MED ONCE .ROUTE ; Start 05/15/21 at 08:42; Stop 05/15/21 at 13:48; Status DC Bupivacaine HCl/ Epinephrine Bitart (Sensorcain-Epi 0.5% Kit) 30 ml STK-MED ONCE .ROUTE ; Start 05/15/21 at 08:43; Stop 05/15/21 at 13:48; Status DC Epinephrine HCl (Adrenalin) 1 mg STK-MED ONCE .ROUTE ; Start 05/15/21 at 08:43; Stop 05/15/21 at 13:48; Status DC Midazolam HCl (Versed) 5 mg STK-MED ONCE .ROUTE ; Start 05/15/21 at 09:09; Stop 05/15/21 at 13:49; Status DC Rocuronium [place] (Zemuron) 50 mg STK-MED ONCE .ROUTE ; Start 05/15/21 at 09:49; Stop 05/15/21 at 13:49; Status DC Cellulose (Surgicel Hemostat 2x14) 1 each STK-MED ONCE .ROUTE ; Start 05/15/21 at 10:00; Stop 05/15/21 at 13:50; Status DC Perflutren Protein Type A Microsphe (Optison) 0.66 mg 1X ONCE IV Last administered on 05/15/21at 15:03; Start 05/15/21 at 15:15; Stop 05/15/21 at 15:16; Status DC Active Scripts Active Easy Neb Compressor Nebulizer (Nebulizer and Compressor) 1 Each Each Each MC PRN PRN Use with albuterol as needed every 4 hours Albuterol Sulfate Neb Soln (Albuterol Sulfate) 2.5 Mg/3 Ml Vial.neb 1 Vial NEB PRN Q4HRS PRN 30 Days Levofloxacin 750 Mg Tablet 1 Tab PO DAILY 5 Days Reported Seroquel (Quetiapine Fumarate) 25 Mg Tablet 25 Mg PO BID Mysoline (Primidone) 50 Mg Tablet 50 Mg PO DAILY Escitalopram Oxalate 20 Mg Tablet 20 Mg PO DAILY Omeprazole 20 Mg Capsule.dr 20 Mg PO DAILY Eliquis (Apixaban) 5 Mg Tablet 5 Mg PO BID Lasix (Furosemide) 40 Mg Tablet 40 Mg PO DAILY Vitals/I & O Vital Sign - Last 24 Hours 05/14/21 05/14/21 05/14/21 05/14/21 16:51 17:00 17:36 18:00 Pulse 109 112 60 Resp 24 24 B/P (MAP) 197/84 118/65 106/58 Pulse Ox 97 99 95 O2 Delivery Ventilator Ventilator Ventilator 05/14/21 05/14/21 05/14/21 05/14/21 19:00 19:30 20:00 20:00 Temp 98.8 98.8 Pulse 58 64 78 Resp 24 20 B/P (MAP) 106/55 112/59 143/79 Pulse Ox 98 99 99 O2 Delivery Ventilator Ventilator Mechanical Ventilator Ventilator 05/14/21 05/14/21 05/14/21 05/14/21 20:00 20:30 21:00 21:00 Pulse 56 52 Resp 24 B/P (MAP) 133/70 96/54 Pulse Ox 98 99 98 98 O2 Delivery Ventilator Ventilator Ventilator Ventilator 05/14/21 05/14/21 05/14/21 05/14/21 21:30 22:00 22:30 23:00 Pulse 76 68 50 49 Resp 24 B/P (MAP) 112/62 107/55 102/53 82/47 Pulse Ox 98 99 99 98 O2 Delivery Ventilator Ventilator Ventilator Ventilator 05/14/21 05/14/21 05/15/21 05/15/21 23:00 23:30 00:00 00:30 Temp 98.3 98.3 Pulse 48 48 52 Resp 24 B/P (MAP) 86/50 90/53 97/56 Pulse Ox 99 99 99 99 O2 Delivery Ventilator Ventilator Ventilator Ventilator 05/15/21 05/15/21 05/15/21 05/15/21 01:00 01:30 01:30 02:00 Pulse 52 48 46 Resp 24 B/P (MAP) 95/53 95/53 81/48 Pulse Ox 99 98 97 99 O2 Delivery Ventilator Ventilator Ventilator Ventilator 05/15/21 05/15/21 05/15/21 05/15/21 02:30 03:00 03:30 04:00 Temp 98.3 98.3 Pulse 48 66 66 60 Resp 24 24 B/P (MAP) 95/55 95/56 109/67 114/66 Pulse Ox 98 98 96 97 O2 Delivery Ventilator Ventilator Ventilator Ventilator 05/15/21 05/15/21 05/15/21 05/15/21 04:00 04:30 05:00 05:30 Pulse 62 52 47 Resp 24 B/P (MAP) 134/74 112/62 103/55 Pulse Ox 97 97 97 98 O2 Delivery Ventilator Ventilator Ventilator Ventilator 05/15/21 05/15/21 05/15/21 05/15/21 06:00 07:00 07:47 08:00 Temp 97.7 97.7 Pulse 45 45 48 Resp 24 24 20 24 B/P (MAP) 96/55 96/55 90/50 Pulse Ox 98 98 98 97 O2 Delivery Ventilator Ventilator Ventilator Ventilator 05/15/21 05/15/21 05/15/21 05/15/21 08:00 08:17 08:26 09:00 Pulse 52 Resp 20 B/P (MAP) 98/57 Pulse Ox 97 97 97 O2 Delivery Mechanical Ventilator Ventilator Ventilator Ventilator O2 Flow Rate 97.0 05/15/21 05/15/21 05/15/21 05/15/21 11:00 11:25 12:00 13:00 Temp 98.6 98.6 Pulse 80 66 64 Resp 20 20 20 B/P (MAP) 163/52 121/56 112/51 Pulse Ox 97 97 98 97 O2 Delivery Ventilator Ventilator Ventilator Ventilator 05/15/21 05/15/21 05/15/21 14:00 15:00 15:58 Pulse 58 53 Resp 20 20 B/P (MAP) 96/48 90/45 Pulse Ox 97 97 99 O2 Delivery Ventilator Ventilator Ventilator Intake and Output 05/14/21 05/14/21 05/15/21 15:00 23:00 07:00 Intake Total 200 ml 1175 ml 892.1 ml Output Total 660 ml 1690 ml 225 ml Balance -460 ml -515 ml 667.1 ml Justifications for Admission Other Justification YUDITH RANGEL MD May 15, 2021 16:29
[2021-05-15] MEDS: NOREPINEPHRINE VIAL 8 MG in IV DEXTROSE 5% 250 ML IV PRN (21:20)
[2021-05-16] VITALS (24 sets, daily range): BP systolic 91–142; BP diastolic 39–74
[2021-05-16] MEDS: PROPOFOL 100 ML IV PRN ×4 (00:35→19:58)
[2021-05-16] MEDS: PANTOPRAZOLE IV PUSH 40 MG VIAL. IVP SCH (08:00)
[2021-05-16 08:32] LABS: BASE EXCESS ABG 2 mmol/L (-3-3); HCO3 ABG 27 mmol/L (21-28); PCO2 ABG 44 mmHg (35-46); PO2 ABG 80 mmHg (65-108); SAT O2 ABG 95 % (92-99)
--- NOTE | 2021-05-16 08:59 | PDOC ---
[employer] PROGRESS NOTE Date of Service DOS: DATE: 05/16/21 TIME: 08:58 Chief Complaint Chief Complaint Respiratory failure Probable bacterial pneumonia Recent COVID-19 in November of last year Possible tracheal [place] History of tracheostomy with decannulation Chronic anticoagulation with some hemoptysis Septic shock Lactic acidosis Acute hypoxic respiratory failure secondary to likely bacterial pneumonia versus viral pneumonia, septic shock, lactic acidosis History of Present Illness History of Present Illness 05/16/2021 Patient seen and examined in the ICU She got her tracheostomy yesterday Vent settings as follows AC/20/450/40 percent with 5 of PEEP Satting 100% Rectal bag in place Simon to bedside drainage SCDs in place OG feeds running at 45 cc an hour Sedated with Versed propofol and fentanyl She has mitts on for patient safety On IV Levophed Discussed with RN Chart reviewed She remains quite ill 05/15/2021 Patient seen and examined in the ICU She remains on the vent AC/20/450/40 percent with 5 of PEEP Satting 97% Sedated with propofol and fentanyl Discussed with general surgeon he is going to take her for a trach today Chart reviewed Discussed with RN 05/14/2021 Patient seen and examined in the ICU Discussed with RN Chart reviewed She remains on the vent AC/20/450/40 percent with 5 PEEP Rectal bag in place Simon to bedside drainage SCDs are in place OG feeds running at 45 cc an hour Mitts on for patient safety 05/11/2021 Patient seen and examined in the ICU She remains on the vent AC/20/450/40 percent with 5 of PEEP OG feeds at 45 cc an hour Sedated with Dex Has several family members present. 1 son named Tushar is here who I think is the DPOA They're discussing whether to go forward with tracheostomy Chart reviewed Discussed with RN She remains critically ill 05/10/2021 Patient seen and examined in the ICU She remains on the vent AC/20/450/40 percent with 5 PEEP Sedated with Dex Mitt on the right hand left hand not moving much per RN SCDs in place Simon to bedside drainage Chart reviewed Discussed with RN She remains extremely critically ill 05/09/2021 Patient seen and examined in the ICU Remains on the ventilator AC/20/450/40 +5 of PEEP Chart reviewed Discussed with RN He remains critically ill 05/08/2021 Patient seen and examined in the ICU She remains on the vent AC/20/450 with 40% FiO2 and 5 of PEEP Sedated with fentanyl and Versed On IV Levophed Discussed with RN Chart reviewed She remains very critically ill 05/07/2021 Patient seen and examined in the ICU He remains on the vent AC/20/450/40 percent with 5 of PEEP Sedated with Versed fentanyl and propofol Discussed with RN Chart reviewed She remains very critically ill 05/06/2021 Patient seen and examined in the ICU She remains on the ventilator AC/20/450/50 percent with 5 of PEEP OG at 40 cc an hour Sedated with fentanyl and propofol and Versed Has Simon to bedside drainage SCDs are in place Chart reviewed Discussed with RN She remains critically ill 05/05/2021 Patient seen and examined in the ICU She remains on the ventilator AC/20/450/50 percent with 5 of PEEP Simon bedside drainage SCDs in place OG at 30 cc an hour Sedated with fentanyl propofol and Versed Chart reviewed Discussed with RN She remains critically ill 05/04/2021 Patient seen and examined in the ICU She is currently on the vent AC/20/450/50 +5 of PEEP Chart reviewed Discussed with RN She is sedated with Versed fentanyl Has IV Levophed hanging Vitals/I&O Vitals/I&O: Vital Signs Date Time Temp Pulse Resp B/P (MAP) Pulse Ox O2 Delivery O2 Flow Rate FiO2 05/16/21 08:21 99 Ventilator 05/16/21 06:00 52 20 117/70 05/16/21 04:00 98.0 98.0 05/15/21 08:17 97.0 I & O 05/15/21 05/15/21 05/16/21 15:00 23:00 07:00 Intake Total 200 ml 1102.41 ml 642.1 ml Output Total 315 ml 245 ml 525 ml Balance -115 ml 857.41 ml 117.1 ml Physical Exam General: Other (On a ventilator) Heart: Regular rate Lungs: Other (Decreased breath sounds) Abdomen: Normal bowel sounds Extremities: No clubbing, No cyanosis Skin: No significant lesion Labs Labs: Laboratory Tests Test 05/15/21 11:13 05/15/21 16:52 05/16/21 00:33 05/16/21 08:25 Glucose (Fingerstick) 76 mg/dL (70-99) 90 mg/dL (70-99) 95 mg/dL (70-99) O2 Saturation 95 % (92-99) Arterial Blood pH 7.40 (7.35-7.45) Arterial Blood pCO2 at Patient Temp 44 mmHg (35-46) Arterial Blood pO2 at Patient Temp 80 mmHg (65-108) Arterial Blood HCO3 27 mmol/L (21-28) Arterial Blood Base Excess 2 mmol/L (-3-3) FiO2 40% ac 20 450 5 Assessment and Plan Assessmemt and Plan Problems Medical Problems: (1) Cardiac arrest Status: Acute (2) Hypokalemia Status: Acute (3) Lactic acidosis Status: Acute (4) Pneumonia Status: Acute (5) Respiratory failure, acute Status: Acute (6) Septic shock Status: Acute Respiratory failure Probable bacterial pneumonia Recent COVID-19 in November of last year Possible tracheal [place] History of tracheostomy with decannulation Chronic anticoagulation with some hemoptysis Septic shock Lactic acidosis Acute hypoxic respiratory failure secondary to likely bacterial pneumonia versus viral pneumonia, septic shock, lactic acidosis Plan ICU monitoring Vent weaning Trach care IV antibiotics As needed sedation with Dex OG feeds Maintenance IV Trying to wean off Levophed Supportive care Monitor rectal bag Mitt for patient safety Home meds if possible Trend labs Appreciate subspecialist input DVT prophylaxis Full code Prognosis long-term guarded but somewhat improved Suspect she might need a long-term acute care facility CC time 31 minutes Comment Review of Relevant I have reviewed the following items davina (where applicable) has been applied. Medications: Current Medications Medications (Trade) Dose Ordered Sig/Qing Route PRN Reason Start Time Stop Time Status Last Admin Dose Admin Midazolam HCl (Versed) 5 mg 1X ONCE IVP 05/15/21 09:15 05/15/21 09:16 DC 05/15/21 09:20 Bupivacaine HCl/ Epinephrine Bitart (Sensorcain-Epi 0.5% Kit) 30 ml STK-MED ONCE INJ 05/15/21 09:49 05/15/21 10:12 DC 05/15/21 09:49 Cellulose (Surgicel Fibrillar 1x2) 1 each STK-MED ONCE TP 05/15/21 09:49 05/15/21 10:12 DC 05/15/21 09:49 Cellulose (Surgicel Hemostat 2x14) 1 each STK-MED ONCE SURGSITE 05/15/21 09:49 05/15/21 10:12 DC 05/15/21 09:49 Perflutren Protein Type A Microsphe (Optison) 0.66 mg 1X ONCE IV 05/15/21 15:15 05/15/21 15:16 DC 05/15/21 15:03 Justifications for Admission Other Justification LUCERO PERAZA III DO May 16, 2021 08:59
[2021-05-16] MEDS: QUEtiapine 25 MG TABLET. PO SCH ×2 (09:00→19:57)
[2021-05-16] MEDS: ELECTROLYTE (ICU) PROTOCOL. MC SCH (09:00)
[2021-05-16] MEDS: CITALOPRAM 20 MG TABLET. PO SCH (09:00)
[2021-05-16] MEDS: PRIMIDONE 50 MG TABLET PO SCH (09:00)
--- NOTE | 2021-05-16 09:32 | PDOC ---
SURGICAL PROGRESS NOTE DATE: 05/16/21 TIME: 09:30 Subjective s/p trach Vital Signs Vital Signs Date Time Temp Pulse Resp B/P (MAP) Pulse Ox O2 Delivery O2 Flow Rate FiO2 05/16/21 08:21 99 Ventilator 05/16/21 06:00 52 20 117/70 05/16/21 04:00 98.0 98.0 05/15/21 08:17 97.0 I&O Intake and Output 05/16/21 07:00 Intake Total 1944.51 ml Output Total 1085 ml Balance 859.51 ml IV Total 715.51 ml Tube Feeding 1129 ml Other 100 ml Output Urine Total 1085 ml Gastric Drainage Total 0 ml General: Other (sedated ) HEENT: Other (trach intact ) Labs Laboratory Tests Test 05/14/21 12:30 05/14/21 17:51 05/15/21 07:03 05/15/21 08:30 Glucose (Fingerstick) 123 mg/dL (70-99) 135 mg/dL (70-99) White Blood Count 10.2 x10^3/uL (4.0-11.0) Red Blood Count 2.61 x10^6/uL (3.50-5.40) Hemoglobin 7.7 g/dL (12.0-15.5) Hematocrit 23.3 % (36.0-47.0) Mean Corpuscular Volume 89 fL (79-100) Mean Corpuscular Hemoglobin 29 pg (25-35) Mean Corpuscular Hemoglobin Concent 33 g/dL (31-37) Red Cell Distribution Width 14.6 % (11.5-14.5) Platelet Count 375 x10^3/uL (140-400) Neutrophils (%) (Auto) 65 % (31-73) Lymphocytes (%) (Auto) 26 % (24-48) Monocytes (%) (Auto) 5 % (0-9) Eosinophils (%) (Auto) 3 % (0-3) Basophils (%) (Auto) 1 % (0-3) Neutrophils # (Auto) 6.6 x10^3/uL (1.8-7.7) Lymphocytes # (Auto) 2.7 x10^3/uL (1.0-4.8) Monocytes # (Auto) 0.5 x10^3/uL (0.0-1.1) Eosinophils # (Auto) 0.3 x10^3/uL (0.0-0.7) Basophils # (Auto) 0.1 x10^3/uL (0.0-0.2) Sodium Level 141 mmol/L (136-145) Potassium Level 3.6 mmol/L (3.5-5.1) Chloride Level 106 mmol/L (98-107) Carbon Dioxide Level 29 mmol/L (21-32) Anion Gap 6 (6-14) Blood Urea Nitrogen 15 mg/dL (7-20) Creatinine 0.6 mg/dL (0.6-1.0) Estimated GFR (Cockcroft-Gault) 101.0 Glucose Level 157 mg/dL (70-99) Calcium Level 8.0 mg/dL (8.5-10.1) Phosphorus Level 3.9 mg/dL (2.6-4.7) Magnesium Level 2.2 mg/dL (1.8-2.4) O2 Saturation 94 % (92-99) Arterial Blood pH 7.50 (7.35-7.45) Arterial Blood pCO2 at Patient Temp 35 mmHg (35-46) Arterial Blood pO2 at Patient Temp 72 mmHg (65-108) Arterial Blood HCO3 26 mmol/L (21-28) Arterial Blood Base Excess 3 mmol/L (-3-3) FiO2 40% ac 20 450 5 Test 05/15/21 11:13 05/15/21 16:52 05/16/21 00:33 05/16/21 08:25 Glucose (Fingerstick) 76 mg/dL (70-99) 90 mg/dL (70-99) 95 mg/dL (70-99) O2 Saturation 95 % (92-99) Arterial Blood pH 7.40 (7.35-7.45) Arterial Blood pCO2 at Patient Temp 44 mmHg (35-46) Arterial Blood pO2 at Patient Temp 80 mmHg (65-108) Arterial Blood HCO3 27 mmol/L (21-28) Arterial Blood Base Excess 2 mmol/L (-3-3) FiO2 40% ac 20 450 5 Laboratory Tests Test 05/15/21 11:13 05/15/21 16:52 05/16/21 00:33 05/16/21 08:25 Glucose (Fingerstick) 76 mg/dL (70-99) 90 mg/dL (70-99) 95 mg/dL (70-99) O2 Saturation 95 % (92-99) Arterial Blood pH 7.40 (7.35-7.45) Arterial Blood pCO2 at Patient Temp 44 mmHg (35-46) Arterial Blood pO2 at Patient Temp 80 mmHg (65-108) Arterial Blood HCO3 27 mmol/L (21-28) Arterial Blood Base Excess 2 mmol/L (-3-3) FiO2 40% ac 20 450 5 Problem List Problems Medical Problems: (1) Cardiac arrest Status: Acute (2) Hypokalemia Status: Acute (3) Lactic acidosis Status: Acute (4) Pneumonia Status: Acute (5) Respiratory failure, acute Status: Acute (6) Septic shock Status: Acute Assessment/Plan s/p trach stable available as needed, please call with questions Justicifation of Admission Dx: Justifications for Admission: Justification of Admission Dx: Yes EMILY NEWELL APRN May 16, 2021 09:32
--- NOTE | 2021-05-16 09:38 | PDOC ---
PULMONARY PROGRESS NOTES DATE: 05/16/21 TIME: 09:37 Subjective Patient underwent tracheotomy yesterday currently hypotensive on norepinephrine Precedex was discontinued overnight Currently on 40% FiO2 5 of PEEP Vitals Vital Signs Date Time Temp Pulse Resp B/P (MAP) Pulse Ox O2 Delivery O2 Flow Rate FiO2 05/16/21 08:21 99 Ventilator 05/16/21 06:00 52 20 117/70 05/16/21 04:00 98.0 98.0 05/15/21 08:17 97.0 Lungs: Other (Decreased breath sounds) Cardiovascular: S1, S2 Extremities: Other (1+) Skin: No Rashes Labs Laboratory Tests Test 05/14/21 12:30 05/14/21 17:51 05/15/21 07:03 05/15/21 08:30 Glucose (Fingerstick) 123 mg/dL (70-99) 135 mg/dL (70-99) White Blood Count 10.2 x10^3/uL (4.0-11.0) Red Blood Count 2.61 x10^6/uL (3.50-5.40) Hemoglobin 7.7 g/dL (12.0-15.5) Hematocrit 23.3 % (36.0-47.0) Mean Corpuscular Volume 89 fL (79-100) Mean Corpuscular Hemoglobin 29 pg (25-35) Mean Corpuscular Hemoglobin Concent 33 g/dL (31-37) Red Cell Distribution Width 14.6 % (11.5-14.5) Platelet Count 375 x10^3/uL (140-400) Neutrophils (%) (Auto) 65 % (31-73) Lymphocytes (%) (Auto) 26 % (24-48) Monocytes (%) (Auto) 5 % (0-9) Eosinophils (%) (Auto) 3 % (0-3) Basophils (%) (Auto) 1 % (0-3) Neutrophils # (Auto) 6.6 x10^3/uL (1.8-7.7) Lymphocytes # (Auto) 2.7 x10^3/uL (1.0-4.8) Monocytes # (Auto) 0.5 x10^3/uL (0.0-1.1) Eosinophils # (Auto) 0.3 x10^3/uL (0.0-0.7) Basophils # (Auto) 0.1 x10^3/uL (0.0-0.2) Sodium Level 141 mmol/L (136-145) Potassium Level 3.6 mmol/L (3.5-5.1) Chloride Level 106 mmol/L (98-107) Carbon Dioxide Level 29 mmol/L (21-32) Anion Gap 6 (6-14) Blood Urea Nitrogen 15 mg/dL (7-20) Creatinine 0.6 mg/dL (0.6-1.0) Estimated GFR (Cockcroft-Gault) 101.0 Glucose Level 157 mg/dL (70-99) Calcium Level 8.0 mg/dL (8.5-10.1) Phosphorus Level 3.9 mg/dL (2.6-4.7) Magnesium Level 2.2 mg/dL (1.8-2.4) O2 Saturation 94 % (92-99) Arterial Blood pH 7.50 (7.35-7.45) Arterial Blood pCO2 at Patient Temp 35 mmHg (35-46) Arterial Blood pO2 at Patient Temp 72 mmHg (65-108) Arterial Blood HCO3 26 mmol/L (21-28) Arterial Blood Base Excess 3 mmol/L (-3-3) FiO2 40% ac 20 450 5 Test 05/15/21 11:13 05/15/21 16:52 05/16/21 00:33 05/16/21 08:25 Glucose (Fingerstick) 76 mg/dL (70-99) 90 mg/dL (70-99) 95 mg/dL (70-99) O2 Saturation 95 % (92-99) Arterial Blood pH 7.40 (7.35-7.45) Arterial Blood pCO2 at Patient Temp 44 mmHg (35-46) Arterial Blood pO2 at Patient Temp 80 mmHg (65-108) Arterial Blood HCO3 27 mmol/L (21-28) Arterial Blood Base Excess 2 mmol/L (-3-3) FiO2 40% ac 20 450 5 Laboratory Tests Test 05/15/21 11:13 05/15/21 16:52 05/16/21 00:33 05/16/21 08:25 Glucose (Fingerstick) 76 mg/dL (70-99) 90 mg/dL (70-99) 95 mg/dL (70-99) O2 Saturation 95 % (92-99) Arterial Blood pH 7.40 (7.35-7.45) Arterial Blood pCO2 at Patient Temp 44 mmHg (35-46) Arterial Blood pO2 at Patient Temp 80 mmHg (65-108) Arterial Blood HCO3 27 mmol/L (21-28) Arterial Blood Base Excess 2 mmol/L (-3-3) FiO2 40% ac 20 450 5 Medications Active Scripts Medications Dose Route/Sig Max Daily Dose Days Date Category Dose Instructions Easy Neb Compressor Nebulizer (Nebulizer and Compressor) 1 Each Each Each MC PRN PRN 05/01/21 Rx Use with albuterol as needed every 4 hours Albuterol Sulfate Neb Soln (Albuterol Sulfate) 2.5 Mg/3 Ml Vial.neb 1 Vial NEB PRN Q4HRS PRN 30 05/01/21 Rx Levofloxacin 750 Mg Tablet 1 Tab PO DAILY 5 05/01/21 Rx Seroquel (Quetiapine Fumarate) 25 Mg Tablet 25 Mg PO BID 04/26/21 Reported Mysoline (Primidone) 50 Mg Tablet 50 Mg PO DAILY 04/26/21 Reported Escitalopram Oxalate 20 Mg Tablet 20 Mg PO DAILY 03/26/21 Reported Omeprazole 20 Mg Capsule.dr 20 Mg PO DAILY 03/26/21 Reported Eliquis (Apixaban) 5 Mg Tablet 5 Mg PO BID 03/26/21 Reported Lasix (Furosemide) 40 Mg Tablet 40 Mg PO DAILY 03/26/21 Reported Comments Chest x-ray reviewed 05/14/2021 Unchanged bilateral interstitial infiltrates CT neck 05/07/2021 No definite tracheal stenosis seen. Impression . 1. Acute hypoxic respiratory failure secondary to likely hypoxic respiratory arrest leading to cardiac arrest.This is her second intubation in a week, . H/o tracheostomy 2. The patient with underlying history of COVID-19 viral pneumonia in late November and early December, had a trach, decannulated.. She required another hospitalization few weeks ago with respiratory failure, but was successfully extubated. April 27, 2021 3. Status post tracheostomy followed by decannulation.. November, December, [facility] 4[address] revealed no tracheal stenosis, 05/07 5. Underlying obesity. 6. Chronic interstitial lung disease 7. History of bleeding around trach 8. Anemia 9. Left upper extremity weakness. ct head neg 10. Hypotension, possibly related to sedation Page of Plan . Updated 05/16 Decrease sedation, discontinue Precedex Continue current FiO2 Titrate Levophed off Discussed with MARY Ridley labs and chest x-rays Anticoagulation Monitor H&H Updated 05/15 Patient to undergo trach Continue current settings Follow x-ray Continue Eliquis Finish course of antibiotics Nutritional support CCT 30-minute KASHMIR BLISS MD May 16, 2021 09:37
[2021-05-16] MEDS: MIDAZOLAM 100mg/100ml NS BAG 100 ML IV PRN (09:53)
[2021-05-16] MEDS: fentaNYL HIGH DOSE PCA 55 ML IV PRN (11:40)
[2021-05-16] MEDS: HEPARIN for SUB-Q USE 5,000 UNIT/ML VIAL. SQ SCH ×2 (15:23→21:51)
--- NOTE | 2021-05-16 15:23 | NUR ---
SS following up with discharge planning. SS reviewed pt chart and discussed with pt RN. Pt is currently on the vent at 40%. COVID19 negative. Trach in place. Pt on Propofol, Fentanyl, and Versed. Tube feeds. Full Code. SS following up with referrals for LTACH. [facility] contacted SS and reported that they are unable to accept pt's on drips for LTACH. SS discussed with Dr. Tirado. SS spoke with pt's family and discussed LTACH referrals. [facility] not in network with [employer]. Pt's daughter reported that pt's [employer]BS will term on 05/21/2021 and pt will have [employer] insurance as of 05/22/2021. SS requested that family provide new insurance information to SS for referrals. Pt's family to bring information to the hospital. Pt's family adamant that they want pt placed at [facility], ; fax [phone], if possible. SS discussed with Vipin at [facility] and was notified that they are in network with [employer] insurance and can accept with the new insurance. SS to send new insurance information when provided. SS will continue to follow for discharge planning.
[2021-05-16] MEDS: NOREPINEPHRINE VIAL 8 MG in IV DEXTROSE 5% 250 ML IV PRN (18:17)
[2021-05-17] VITALS (26 sets, daily range): BP systolic 82–137; BP diastolic 40–62
[2021-05-17] MEDS: PROPOFOL 100 ML IV PRN ×3 (00:23→10:14)
[2021-05-17] MEDS: MIDAZOLAM 100mg/100ml NS BAG 100 ML IV PRN (04:19)
[2021-05-17] MEDS: HEPARIN for SUB-Q USE 5,000 UNIT/ML VIAL. SQ SCH ×3 (05:42→21:35)
[2021-05-17 06:17] LABS: HEMATOCRIT 23.9 % (36.0-47.0); HEMOGLOBIN 7.7 g/dL (12.0-15.5); RED BLOOD COUNT 2.68 x10^6/uL (3.50-5.40); RED CELL DISTRIBUTION WIDTH 15.7 % (11.5-14.5); WHITE BLOOD COUNT 12.9 x10^3/uL (4.0-11.0)
[2021-05-17 06:41] LABS: ALBUMIN 1.9 g/dL (3.4-5.0); ALBUMIN/GLOBULIN RATIO 0.6 (1.0-1.7); CALCIUM 7.8 mg/dL (8.5-10.1); CREATININE 0.5 mg/dL (0.6-1.0); GFR 124.6; TOTAL BILIRUBIN 0.5 mg/dL (0.2-1.0); TOTAL PROTEIN 5.3 g/dL (6.4-8.2)
[2021-05-17 08:31] LABS: BASE EXCESS ABG 2 mmol/L (-3-3); HCO3 ABG 27 mmol/L (21-28); PCO2 ABG 43 mmHg (35-46); PO2 ABG 87 mmHg (65-108); SAT O2 ABG 96 % (92-99)
[2021-05-17 08:34] LABS: FIO2 ABG 40
--- NOTE | 2021-05-17 08:35 | RAD ---
XR CHEST 1V INDICATION: rf . COMPARISON STUDY: 05/14/2021. FINDINGS: Life Support Devices: Tracheostomy, enteric tube, right IJ central venous catheter. Lungs: Low lung volume. Stable diffuse bilateral opacities. Pleura: Stable pleural spaces. Heart and Mediastinum: Stable cardiomediastinal silhouette and great vessels. Bones and Soft Tissues: Stable regional skeleton and soft tissues. IMPRESSION: Stable diffuse bilateral opacities. Electronically signed by: Byron Sotelo MD (05/17/2021 8:32 AM) [id number]
[2021-05-17] MEDS: PRIMIDONE 50 MG TABLET PO SCH (08:36)
[2021-05-17] MEDS: PANTOPRAZOLE IV PUSH 40 MG VIAL. IVP SCH (08:36)
[2021-05-17] MEDS: CITALOPRAM 20 MG TABLET. PO SCH (08:36)
[2021-05-17] MEDS: QUEtiapine 25 MG TABLET. PO SCH ×2 (08:37→21:24)
[2021-05-17] MEDS: ELECTROLYTE (ICU) PROTOCOL. MC SCH (09:00)
[2021-05-17] MEDS: fentaNYL HIGH DOSE PCA 55 ML IV PRN (10:18)
--- NOTE | 2021-05-17 10:31 | PDOC ---
PULMONARY PROGRESS NOTES DATE: 05/17/21 TIME: 10:24 Subjective Patient sedated with prop, fent. Currently hypotensive on norepinephrine Tube feed at 45mL/hr Currently on 35% FiO2 5 of PEEP Vitals Vital Signs Date Time Temp Pulse Resp B/P (MAP) Pulse Ox O2 Delivery O2 Flow Rate FiO2 05/17/21 10:18 20 05/17/21 09:27 100 Ventilator 05/17/21 09:00 59 84/45 05/17/21 08:00 98.8 98.8 05/16/21 12:10 97.0 Lungs: Other (Decreased breath sounds) Cardiovascular: S1, S2 Extremities: Other (1+) Skin: No Rashes Labs Laboratory Tests Test 05/15/21 11:13 05/15/21 16:52 05/16/21 00:33 05/16/21 08:25 Glucose (Fingerstick) 76 mg/dL (70-99) 90 mg/dL (70-99) 95 mg/dL (70-99) O2 Saturation 95 % (92-99) Arterial Blood pH 7.40 (7.35-7.45) Arterial Blood pCO2 at Patient Temp 44 mmHg (35-46) Arterial Blood pO2 at Patient Temp 80 mmHg (65-108) Arterial Blood HCO3 27 mmol/L (21-28) Arterial Blood Base Excess 2 mmol/L (-3-3) FiO2 40% ac 20 450 5 Test 05/17/21 06:00 05/17/21 08:29 White Blood Count 12.9 x10^3/uL (4.0-11.0) Red Blood Count 2.68 x10^6/uL (3.50-5.40) Hemoglobin 7.7 g/dL (12.0-15.5) Hematocrit 23.9 % (36.0-47.0) Mean Corpuscular Volume 89 fL (79-100) Mean Corpuscular Hemoglobin 29 pg (25-35) Mean Corpuscular Hemoglobin Concent 32 g/dL (31-37) Red Cell Distribution Width 15.7 % (11.5-14.5) Platelet Count 498 x10^3/uL (140-400) Sodium Level 140 mmol/L (136-145) Potassium Level 3.0 mmol/L (3.5-5.1) Chloride Level 105 mmol/L (98-107) Carbon Dioxide Level 29 mmol/L (21-32) Anion Gap 6 (6-14) Blood Urea Nitrogen 10 mg/dL (7-20) Creatinine 0.5 mg/dL (0.6-1.0) Estimated GFR (Cockcroft-Gault) 124.6 BUN/Creatinine Ratio 20 (6-20) Glucose Level 135 mg/dL (70-99) Calcium Level 7.8 mg/dL (8.5-10.1) Total Bilirubin 0.5 mg/dL (0.2-1.0) Aspartate Amino Transf (AST/SGOT) 42 U/L (15-37) Alanine Aminotransferase (ALT/SGPT) 86 U/L (14-59) Alkaline Phosphatase 205 U/L (46-116) Total Protein 5.3 g/dL (6.4-8.2) Albumin 1.9 g/dL (3.4-5.0) Albumin/Globulin Ratio 0.6 (1.0-1.7) O2 Saturation 96 % (92-99) Arterial Blood pH 7.42 (7.35-7.45) Arterial Blood pCO2 at Patient Temp 43 mmHg (35-46) Arterial Blood pO2 at Patient Temp 87 mmHg (65-108) Arterial Blood HCO3 27 mmol/L (21-28) Arterial Blood Base Excess 2 mmol/L (-3-3) FiO2 40 Laboratory Tests Test 05/17/21 06:00 05/17/21 08:29 White Blood Count 12.9 x10^3/uL (4.0-11.0) Red Blood Count 2.68 x10^6/uL (3.50-5.40) Hemoglobin 7.7 g/dL (12.0-15.5) Hematocrit 23.9 % (36.0-47.0) Mean Corpuscular Volume 89 fL (79-100) Mean Corpuscular Hemoglobin 29 pg (25-35) Mean Corpuscular Hemoglobin Concent 32 g/dL (31-37) Red Cell Distribution Width 15.7 % (11.5-14.5) Platelet Count 498 x10^3/uL (140-400) Sodium Level 140 mmol/L (136-145) Potassium Level 3.0 mmol/L (3.5-5.1) Chloride Level 105 mmol/L (98-107) Carbon Dioxide Level 29 mmol/L (21-32) Anion Gap 6 (6-14) Blood Urea Nitrogen 10 mg/dL (7-20) Creatinine 0.5 mg/dL (0.6-1.0) Estimated GFR (Cockcroft-Gault) 124.6 BUN/Creatinine Ratio 20 (6-20) Glucose Level 135 mg/dL (70-99) Calcium Level 7.8 mg/dL (8.5-10.1) Total Bilirubin 0.5 mg/dL (0.2-1.0) Aspartate Amino Transf (AST/SGOT) 42 U/L (15-37) Alanine Aminotransferase (ALT/SGPT) 86 U/L (14-59) Alkaline Phosphatase 205 U/L (46-116) Total Protein 5.3 g/dL (6.4-8.2) Albumin 1.9 g/dL (3.4-5.0) Albumin/Globulin Ratio 0.6 (1.0-1.7) O2 Saturation 96 % (92-99) Arterial Blood pH 7.42 (7.35-7.45) Arterial Blood pCO2 at Patient Temp 43 mmHg (35-46) Arterial Blood pO2 at Patient Temp 87 mmHg (65-108) Arterial Blood HCO3 27 mmol/L (21-28) Arterial Blood Base Excess 2 mmol/L (-3-3) FiO2 40 Medications Active Scripts Medications Dose Route/Sig Max Daily Dose Days Date Category Dose Instructions Easy Neb Compressor Nebulizer (Nebulizer and Compressor) 1 Each Each Each MC PRN PRN 05/01/21 Rx Use with albuterol as needed every 4 hours Albuterol Sulfate Neb Soln (Albuterol Sulfate) 2.5 Mg/3 Ml Vial.neb 1 Vial NEB PRN Q4HRS PRN 30 05/01/21 Rx Levofloxacin 750 Mg Tablet 1 Tab PO DAILY 5 05/01/21 Rx Seroquel (Quetiapine Fumarate) 25 Mg Tablet 25 Mg PO BID 04/26/21 Reported Mysoline (Primidone) 50 Mg Tablet 50 Mg PO DAILY 04/26/21 Reported Escitalopram Oxalate 20 Mg Tablet 20 Mg PO DAILY 03/26/21 Reported Omeprazole 20 Mg Capsule.dr 20 Mg PO DAILY 03/26/21 Reported Eliquis (Apixaban) 5 Mg Tablet 5 Mg PO BID 12/6/21 Reported Lasix (Furosemide) 40 Mg Tablet 40 Mg PO DAILY 03/26/21 Reported Comments Chest x-ray reviewed 05/14/2021 Unchanged bilateral interstitial infiltrates CT neck 05/07/2021 No definite tracheal stenosis seen. Impression . 1. Acute hypoxic respiratory failure secondary to likely hypoxic respiratory arrest leading to cardiac arrest.This is her second intubation in a week, . H/o tracheostomy 2. The patient with underlying history of COVID-19 viral pneumonia in late November and early December, had a trach, decannulated.. She required another hospitalization few weeks ago with respiratory failure, but was successfully extubated. April 27, 2021 3. Status post tracheostomy followed by decannulation.. November, December, 2020 [facility] 4. CT revealed no tracheal stenosis, 05/07 5. Underlying obesity. 6. Chronic interstitial lung disease 7. History of bleeding around trach 8. Anemia 9. Left upper extremity weakness. ct head neg 10. Hypotension, possibly related to sedation 11. Hypokalemia. Page of Plan . Updated 05/17 Discussed with RN, will discontinue Diprivan Continue current FiO2 Titrate Levophed off Discussed with MARY Ridley labs and chest x-rays. Reviewed Replace Potassium Anticoagulation Monitor H&H. Stable to improved Monitor WBC, possibly steroid driven Updated 05/16 Decrease sedation, discontinue Precedex Continue current FiO2 Titrate Levophed off Discussed with MARY Benoit. labs and chest x-rays Anticoagulation Monitor H&H Updated 05/15 Patient to undergo trach Continue current settings Follow x-ray Continue Eliquis Finish course of antibiotics Nutritional support CCT 30-minute KASHMIR BLISS MD May 17, 2021 10:31
[2021-05-17] MEDS: POTASSIUM CHLORIDE 10MEQ 100 ML IV SCH ×3 (10:48→14:09)
[2021-05-17] MEDS: NOREPINEPHRINE VIAL 8 MG in IV DEXTROSE 5% 250 ML IV PRN (11:04)
--- NOTE | 2021-05-17 11:39 | PDOC ---
[employer] PROGRESS NOTE Date of Service DOS: DATE: 05/17/21 TIME: 11:37 Chief Complaint Chief Complaint Respiratory failure Probable bacterial pneumonia Recent COVID-19 in November of last year Possible tracheal [place] History of tracheostomy with decannulation Chronic anticoagulation with some hemoptysis Septic shock Lactic acidosis Acute hypoxic respiratory failure secondary to likely bacterial pneumonia versus viral pneumonia, septic shock, lactic acidosis History of Present Illness History of Present Illness 05/17/2021 Patient seen and examined in the ICU She remains on the vent AC/20/450/30 5% with 5 of PEEP Satting 99% Trach appears clean dry and intact She is sedated with Versed and fentanyl OG tube in place Rectal bag in place Simon to bedside drainage Chart reviewed Discussed with RN She remains critically ill 05/16/2021 Patient seen and examined in the ICU She got her tracheostomy yesterday Vent settings as follows AC/20/450/40 percent with 5 of PEEP Satting 100% Rectal bag in place Simon to bedside drainage SCDs in place OG feeds running at 45 cc an hour Sedated with Versed propofol and fentanyl She has mitts on for patient safety On IV Levophed Discussed with RN Chart reviewed She remains quite ill 05/15/2021 Patient seen and examined in the ICU She remains on the vent AC/20/450/40 percent with 5 of PEEP Satting 97% Sedated with propofol and fentanyl Discussed with general surgeon he is going to take her for a trach today Chart reviewed Discussed with RN 05/14/2021 Patient seen and examined in the ICU Discussed with RN Chart reviewed She remains on the vent AC/20/450/40 percent with 5 PEEP Rectal bag in place Simon to bedside drainage SCDs are in place OG feeds running at 45 cc an hour Mitts on for patient safety 05/11/2021 Patient seen and examined in the ICU She remains on the vent AC/20/450/40 percent with 5 of PEEP OG feeds at 45 cc an hour Sedated with Dex Has several family members present. 1 son named Tushar is here who I think is the DPOA They're discussing whether to go forward with tracheostomy Chart reviewed Discussed with RN She remains critically ill 05/10/2021 Patient seen and examined in the ICU She remains on the vent AC/20/450/40 percent with 5 PEEP Sedated with Dex Mitt on the right hand left hand not moving much per RN SCDs in place Simon to bedside drainage Chart reviewed Discussed with RN She remains extremely critically ill 05/09/2021 Patient seen and examined in the ICU Remains on the ventilator AC/20/450/40 +5 of PEEP Chart reviewed Discussed with RN He remains critically ill 05/08/2021 Patient seen and examined in the ICU She remains on the vent AC/20/450 with 40% FiO2 and 5 of PEEP Sedated with fentanyl and Versed On IV Levophed Discussed with RN Chart reviewed She remains very critically ill 05/07/2021 Patient seen and examined in the ICU He remains on the vent AC/20/450/40 percent with 5 of PEEP Sedated with Versed fentanyl and propofol Discussed with RN Chart reviewed She remains very critically ill 05/06/2021 Patient seen and examined in the ICU She remains on the ventilator AC/20/450/50 percent with 5 of PEEP OG at 40 cc an hour Sedated with fentanyl and propofol and Versed Has Simon to bedside drainage SCDs are in place Chart reviewed Discussed with RN She remains critically ill 05/05/2021 Patient seen and examined in the ICU She remains on the ventilator AC/20/450/50 percent with 5 of PEEP Simon bedside drainage SCDs in place OG at 30 cc an hour Sedated with fentanyl propofol and Versed Chart reviewed Discussed with RN She remains critically ill 05/04/2021 Patient seen and examined in the ICU She is currently on the vent AC/20/450/50 +5 of PEEP Chart reviewed Discussed with RN She is sedated with Versed fentanyl Has IV Levophed hanging Vitals/I&O Vitals/I&O: Vital Signs Date Time Temp Pulse Resp B/P (MAP) Pulse Ox O2 Delivery O2 Flow Rate FiO2 05/17/21 11:00 66 20 91/43 100 Ventilator 05/17/21 08:00 98.8 98.8 05/16/21 12:10 97.0 I & O 05/16/21 05/16/21 05/17/21 15:00 23:00 07:00 Intake Total 200 ml 742 ml 200 ml Output Total 340 ml 190 ml 335 ml Balance -140 ml 552 ml -135 ml Physical Exam General: Other (sedated ) Heart: Regular rate Lungs: Other (Decreased breath sounds) Abdomen: Normal bowel sounds Extremities: No clubbing, No cyanosis Skin: No significant lesion Labs Labs: Laboratory Tests Test 05/17/21 06:00 05/17/21 08:29 White Blood Count 12.9 x10^3/uL (4.0-11.0) Red Blood Count 2.68 x10^6/uL (3.50-5.40) Hemoglobin 7.7 g/dL (12.0-15.5) Hematocrit 23.9 % (36.0-47.0) Mean Corpuscular Volume 89 fL (79-100) Mean Corpuscular Hemoglobin 29 pg (25-35) Mean Corpuscular Hemoglobin Concent 32 g/dL (31-37) Red Cell Distribution Width 15.7 % (11.5-14.5) Platelet Count 498 x10^3/uL (140-400) Sodium Level 140 mmol/L (136-145) Potassium Level 3.0 mmol/L (3.5-5.1) Chloride Level 105 mmol/L (98-107) Carbon Dioxide Level 29 mmol/L (21-32) Anion Gap 6 (6-14) Blood Urea Nitrogen 10 mg/dL (7-20) Creatinine 0.5 mg/dL (0.6-1.0) Estimated GFR (Cockcroft-Gault) 124.6 BUN/Creatinine Ratio 20 (6-20) Glucose Level 135 mg/dL (70-99) Calcium Level 7.8 mg/dL (8.5-10.1) Total Bilirubin 0.5 mg/dL (0.2-1.0) Aspartate Amino Transf (AST/SGOT) 42 U/L (15-37) Alanine Aminotransferase (ALT/SGPT) 86 U/L (14-59) Alkaline Phosphatase 205 U/L (46-116) Total Protein 5.3 g/dL (6.4-8.2) Albumin 1.9 g/dL (3.4-5.0) Albumin/Globulin Ratio 0.6 (1.0-1.7) O2 Saturation 96 % (92-99) Arterial Blood pH 7.42 (7.35-7.45) Arterial Blood pCO2 at Patient Temp 43 mmHg (35-46) Arterial Blood pO2 at Patient Temp 87 mmHg (65-108) Arterial Blood HCO3 27 mmol/L (21-28) Arterial Blood Base Excess 2 mmol/L (-3-3) FiO2 40 Assessment and Plan Assessmemt and Plan Problems Medical Problems: (1) Cardiac arrest Status: Acute (2) Hypokalemia Status: Acute (3) Lactic acidosis Status: Acute (4) Pneumonia Status: Acute (5) Respiratory failure, acute Status: Acute (6) Septic shock Status: Acute Respiratory failure Probable bacterial pneumonia Recent COVID-19 in November of last year Possible tracheal [place] History of tracheostomy with decannulation Chronic anticoagulation with some hemoptysis Septic shock Lactic acidosis Acute hypoxic respiratory failure secondary to likely bacterial pneumonia versus viral pneumonia, septic shock, lactic acidosis Plan ICU monitoring Vent weaning Trach care IV antibiotics As needed sedation with Dex OG feeds Maintenance IV Trying to wean off Levophed Supportive care Monitor rectal bag Mitt for patient safety Home meds if possible Trend labs Appreciate subspecialist input DVT prophylaxis Full code Needs LTAC eval CC time 32 minutes Comment Review of Relevant I have reviewed the following items davina (where applicable) has been applied. Medications: Current Medications Medications (Trade) Dose Ordered Sig/Qing Route PRN Reason Start Time Stop Time Status Last Admin Dose Admin Heparin Sodium (Porcine) (Heparin Sodium) 5,000 unit Q8HRS SQ 05/16/21 14:00 05/17/21 05:42 Potassium Chloride/Water 100 ml @ 100 mls/hr Q1H IV 05/17/21 11:00 05/17/21 13:59 05/17/21 10:48 Justifications for Admission Other Justification LUCERO PERAZA III DO May 17, 2021 11:39
--- NOTE | 2021-05-17 15:32 | NUR ---
SS following up with discharge planning. SS reviewed pt chart and discussed with pt RN. Pt is currently on the vent at 35%. COVID19 negative. Pt on Fentanyl, Versed, and Levophed. Tube feeds. Trach in place. Full Code. Referrals sent for LTACH on 05/15/2021. [facility] declined pt. Pt accepted at [facility] [place], ; fax [phone], pending new insurance information. Per pt's family pt's will change insurance to [employer] on 05/22/2021. Currently awaiting family to provide new policy information. SS contacted pt's daughter and requested that new policy information be brought to the hospital. Pt's family reported that they would provide information. SS will continue to follow for discharge planning.
--- NOTE | 2021-05-17 16:58 | PDOC ---
PROGRESS NOTES Date of Service DATE: 05/17/21 TIME: 16:56 Subjective Subjective Patient seen and examined Objective Objective Vital Signs Date Time Temp Pulse Resp B/P (MAP) Pulse Ox O2 Delivery O2 Flow Rate FiO2 05/17/21 16:16 98.6 81 20 105/56 98 Ventilator 98.6 05/16/21 12:10 97.0 Intake and Output 05/17/21 07:00 Intake Total 1142 ml Output Total 865 ml Balance 277 ml IV Total 542 ml Tube Feeding 600 ml Output Urine Total 865 ml Gastric Drainage Total 0 ml Physical Exam Abdomen: Normal bowel sounds Heart: Regular rate General: Other (Remains on a ventilator) Lungs: Other (Mildly decreased breath sounds) Assessment Assessment Problems Medical Problems: (1) Cardiac arrest Status: Acute (2) Hypokalemia Status: Acute (3) Lactic acidosis Status: Acute (4) Pneumonia Status: Acute (5) Respiratory failure, acute Status: Acute (6) Septic shock Status: Acute 1. Out of hospital acute cardiopulmonary arrest. Significant downtime. The patient remains on a ventilator. Rhythm stable. Continue supportive treatment and antibiotics. 2. Respiratory failure. Redo of tracheostomy. Followed by the pulmonary service. 2. Recent treatment with Eliquis. I can find no history of atrial fibrillation or other indications for chronic anticoagulation. Holding Eliquis. Monitoring lab. H&H today of 7.7 and 23.9 3. Septic shock. Continue on antibiotics. Pressors as needed. Slow improvement. 4. Hypokalemia. Updated potassium of 3.0 with creatinine of 0.5. Continue replacement and monitoring. Comment Review of Relevant I have reviewed the following items davina (where applicable) has been applied. Labs Laboratory Tests Test 05/16/21 00:33 05/16/21 08:25 05/17/21 06:00 05/17/21 08:29 Glucose (Fingerstick) 95 mg/dL (70-99) O2 Saturation 95 % (92-99) 96 % (92-99) Arterial Blood pH 7.40 (7.35-7.45) 7.42 (7.35-7.45) Arterial Blood pCO2 at Patient Temp 44 mmHg (35-46) 43 mmHg (35-46) Arterial Blood pO2 at Patient Temp 80 mmHg (65-108) 87 mmHg (65-108) Arterial Blood HCO3 27 mmol/L (21-28) 27 mmol/L (21-28) Arterial Blood Base Excess 2 mmol/L (-3-3) 2 mmol/L (-3-3) FiO2 40% ac 20 450 5 40 White Blood Count 12.9 x10^3/uL (4.0-11.0) Red Blood Count 2.68 x10^6/uL (3.50-5.40) Hemoglobin 7.7 g/dL (12.0-15.5) Hematocrit 23.9 % (36.0-47.0) Mean Corpuscular Volume 89 fL (79-100) Mean Corpuscular Hemoglobin 29 pg (25-35) Mean Corpuscular Hemoglobin Concent 32 g/dL (31-37) Red Cell Distribution Width 15.7 % (11.5-14.5) Platelet Count 498 x10^3/uL (140-400) Sodium Level 140 mmol/L (136-145) Potassium Level 3.0 mmol/L (3.5-5.1) Chloride Level 105 mmol/L (98-107) Carbon Dioxide Level 29 mmol/L (21-32) Anion Gap 6 (6-14) Blood Urea Nitrogen 10 mg/dL (7-20) Creatinine 0.5 mg/dL (0.6-1.0) Estimated GFR (Cockcroft-Gault) 124.6 BUN/Creatinine Ratio 20 (6-20) Glucose Level 135 mg/dL (70-99) Calcium Level 7.8 mg/dL (8.5-10.1) Total Bilirubin 0.5 mg/dL (0.2-1.0) Aspartate Amino Transf (AST/SGOT) 42 U/L (15-37) Alanine Aminotransferase (ALT/SGPT) 86 U/L (14-59) Alkaline Phosphatase 205 U/L (46-116) Total Protein 5.3 g/dL (6.4-8.2) Albumin 1.9 g/dL (3.4-5.0) Albumin/Globulin Ratio 0.6 (1.0-1.7) Laboratory Tests Test 05/17/21 06:00 05/17/21 08:29 White Blood Count 12.9 x10^3/uL (4.0-11.0) Red Blood Count 2.68 x10^6/uL (3.50-5.40) Hemoglobin 7.7 g/dL (12.0-15.5) Hematocrit 23.9 % (36.0-47.0) Mean Corpuscular Volume 89 fL (79-100) Mean Corpuscular Hemoglobin 29 pg (25-35) Mean Corpuscular Hemoglobin Concent 32 g/dL (31-37) Red Cell Distribution Width 15.7 % (11.5-14.5) Platelet Count 498 x10^3/uL (140-400) Sodium Level 140 mmol/L (136-145) Potassium Level 3.0 mmol/L (3.5-5.1) Chloride Level 105 mmol/L (98-107) Carbon Dioxide Level 29 mmol/L (21-32) Anion Gap 6 (6-14) Blood Urea Nitrogen 10 mg/dL (7-20) Creatinine 0.5 mg/dL (0.6-1.0) Estimated GFR (Cockcroft-Gault) 124.6 BUN/Creatinine Ratio 20 (6-20) Glucose Level 135 mg/dL (70-99) Calcium Level 7.8 mg/dL (8.5-10.1) Total Bilirubin 0.5 mg/dL (0.2-1.0) Aspartate Amino Transf (AST/SGOT) 42 U/L (15-37) Alanine Aminotransferase (ALT/SGPT) 86 U/L (14-59) Alkaline Phosphatase 205 U/L (46-116) Total Protein 5.3 g/dL (6.4-8.2) Albumin 1.9 g/dL (3.4-5.0) Albumin/Globulin Ratio 0.6 (1.0-1.7) O2 Saturation 96 % (92-99) Arterial Blood pH 7.42 (7.35-7.45) Arterial Blood pCO2 at Patient Temp 43 mmHg (35-46) Arterial Blood pO2 at Patient Temp 87 mmHg (65-108) Arterial Blood HCO3 27 mmol/L (21-28) Arterial Blood Base Excess 2 mmol/L (-3-3) FiO2 40 Microbiology 05/03/21 Blood Culture - Final, Complete NO GROWTH AFTER 5 DAYS Medications Current Medications Propofol 100 ml @ As Directed STK-MED ONCE IV ; Start 05/03/21 at 10:43; Stop 05/03/21 at 10:43; Status DC Norepinephrine Bitartrate 8 mg/ Dextrose 258 ml @ 19.35 mls/ hr 1X ONCE IV Last administered on 05/03/21at 11:20; Start 05/03/21 at 11:15; Stop 05/04/21 at 00:34; Status DC Propofol (Diprivan) 200 mg TITRATE ONCE IV ; Start 05/03/21 at 11:45; Stop 05/03/21 at 11:46; Status UNV Propofol 100 ml @ 3 mls/hr CONT PRN IV PER PROTOCOL Last administered on 05/03/21at 10:50; Start 05/03/21 at 11:45; Stop 05/03/21 at 12:49; Status DC Cefepime HCl (Maxipime) 2 gm 1X ONCE IVP Last administered on 05/03/21at 11:45; Start 05/03/21 at 11:45; Stop 05/03/21 at 11:46; Status DC Vancomycin HCl 1.5 gm/Sodium Chloride 500 ml @ 250 mls/hr 1X ONCE IV ; Start 05/03/21 at 11:45; Stop 05/03/21 at 13:44; Status UNV Sodium Chloride 1,000 ml @ 1,000 mls/hr 1X ONCE IV Last administered on 05/03/21at 10:50; Start 05/03/21 at 11:45; Stop 05/03/21 at 12:44; Status DC Sodium Chloride 1,000 ml @ 1,000 mls/hr 1X ONCE IV Last administered on 05/03/21at 11:00; Start 05/03/21 at 11:45; Stop 05/03/21 at 12:44; Status DC Sodium Chloride 1,000 ml @ 250 mls/hr Q4H IV Last administered on 05/04/21at 03:45; Start 05/03/21 at 11:45; Stop 05/04/21 at 11:44; Status DC Vancomycin HCl 2 gm/Sodium Chloride 500 ml @ 250 mls/hr 1X ONCE IV Last administered on 05/03/21at 12:00; Start 05/03/21 at 12:00; Stop 05/03/21 at 13:59; Status DC Potassium Bicarbonate (Potassium Effervescent Tablet) 40 meq 1X ONCE NG Last administered on 05/03/21at 15:01; Start 05/03/21 at 12:00; Stop 05/03/21 at 12:01; Status DC Potassium Chloride/Water 100 ml @ 100 mls/hr Q1H IV ; Start 05/03/21 at 12:00; Stop 05/03/21 at 12:04; Status DC Apixaban (Eliquis) 5 mg BID PO ; Start 05/03/21 at 21:00; Stop 05/03/21 at 15:54; Status DC Primidone (Mysoline) 50 mg DAILY PO Last administered on 05/17/21at 08:36; Start 05/04/21 at 09:00 Quetiapine Fumarate (SEROquel) 25 mg BID PO Last administered on 05/16/21at 09:00; Start 05/03/21 at 21:00 Citalopram Hydrobromide (CeleXA) 20 mg DAILY PO Last administered on 05/17/21at 08:36; Start 05/04/21 at 09:00 Pantoprazole Sodium (PROTONIX VIAL for IV PUSH) 40 mg DAILYAC IVP Last administered on 05/17/21at 08:36; Start 05/04/21 at 07:30 Potassium Chloride/Water 100 ml @ 100 mls/hr Q1H IV Last administered on 05/03/21at 13:43; Start 05/03/21 at 12:00; Stop 05/03/21 at 13:59; Status DC Magnesium Sulfate 50 ml @ 25 mls/hr 1X ONCE IV Last administered on 05/03/21at 15:00; Start 05/03/21 at 12:00; Stop 05/03/21 at 13:59; Status DC Ondansetron HCl (Zofran) 4 mg PRN Q6HRS PRN IVP NAUSEA/VOMITING; Start 05/03/21 at 12:00 Calcium Carbonate/ Glycine (Tums) 500 mg PRN Q3HRS PRN PO HEARTBURN / GAS; Start 05/03/21 at 12:00 Info (Icu Electrolyte Protocol) 1 ea DAILY MC Last administered on 05/13/21at 09:00; Start 05/04/21 at 09:00 Sodium Chloride (Normal Saline Flush) 3 ml QSHIFT PRN IV AFTER MEDS AND BLOOD DRAWS; Start 05/03/21 at 12:00 Potassium Chloride/Water 100 ml @ 100 mls/hr Q1H IV Last administered on 05/03/21at 15:57; Start 05/03/21 at 14:00; Stop 05/03/21 at 15:59; Status DC Fentanyl Citrate 30 ml @ 2.5 mls/hr CONT PRN IV SEE PROTOCOL Last administered on 05/08/21at 06:54; Start 05/03/21 at 12:45; Stop 05/15/21 at 07:41; Status DC Midazolam HCl 100 ml @ 1 mls/hr CONT PRN IV SEE PROTOCOL Last administered on 05/17/21at 04:19; Start 05/03/21 at 12:45 Propofol 100 ml @ 3 mls/hr CONT PRN IV PER PROTOCOL Last administered on 05/17/21at 10:14; Start 05/03/21 at 12:45 Vecuronium Van (Norcuron Bolus) 6 mg PRN 1X PRN IV VENT INDUCTION; Start 05/03/21 at 12:45; Stop 05/04/21 at 12:44; Status DC Dexmedetomidine HCl 400 mcg/ Sodium Chloride 100 ml @ 7,500 mls/hr CONT PRN IV PER PROTOCOL Last administered on 05/09/21at 10:42; Start 05/03/21 at 12:45; Stop 05/09/21 at 10:49; Status DC Iohexol (Omnipaque 350 Mg/ml) 100 ml 1X ONCE IV Last administered on 05/03/21at 12:58; Start 05/03/21 at 13:00; Stop 05/03/21 at 13:01; Status DC Info (CONTRAST GIVEN -- Rx MONITORING) 1 each PRN DAILY PRN MC SEE COMMENTS; Start 05/03/21 at 13:00; Stop 05/05/21 at 12:59; Status DC Piperacillin Sod/ Tazobactam Sod (Zosyn Per Pharmacy) 1 each PRN DAILY PRN MC SEE COMMENTS; Start 05/03/21 at 15:15; Stop 05/03/21 at 15:07; Status DC Vancomycin HCl (Vanco Per Pharmacy) 1 each PRN DAILY PRN MC SEE COMMENTS Last administered on 05/11/21at 09:00; Start 05/03/21 at 15:15; Stop 05/11/21 at 14:19; Status DC Cefepime HCl (Maxipime) 1 gm Q8HRS IVP ; Start 05/03/21 at 15:30; Status Cancel Insulin Human Lispro (HumaLOG) 0-7 UNITS TIDWMEALS SQ ; Start 05/03/21 at 17:00; Stop 05/07/21 at 07:52; Status DC Dextrose (Dextrose 50%-Water Syringe) 12.5 gm PRN Q15MIN PRN IV SEE COMMENTS; Start 05/03/21 at 15:15; Stop 05/07/21 at 07:53; Status DC Cefepime HCl (Maxipime) 1 gm Q8HRS IVP Last administered on 05/14/21at 14:23; Start 05/03/21 at 22:00; Stop 05/14/21 at 14:49; Status DC Methylprednisolone Sodium Succinate (SOLU-Medrol 125MG VIAL) 125 mg 1X ONCE IV Last administered on 05/03/21at 15:56; Start 05/03/21 at 15:30; Stop 05/03/21 at 15:31; Status DC Vancomycin HCl 1 gm/Sodium Chloride 250 ml @ 250 mls/hr Q12H IV Last administered on 05/10/21at 00:06; Start 05/04/21 at 00:00; Stop 05/10/21 at 10:46; Status DC Vancomycin HCl (Vancomycin Trough Level) 1 each 1X ONCE MC ; Start 05/04/21 at 23:30; Stop 05/04/21 at 23:31; Status DC Potassium Chloride/Water 100 ml @ 100 mls/hr Q1H IV Last administered on 05/04/21at 09:38; Start 05/04/21 at 08:00; Stop 05/04/21 at 09:59; Status DC Calcium Chloride (Calcium Chloride) 1,000 mg STK-MED ONCE .ROUTE ; Start 05/03/21 at 11:00; Stop 05/04/21 at 12:23; Status DC Sodium Bicarbonate (Sodium Bicarb Adult 8.4% Syr) 50 meq STK-MED ONCE .ROUTE ; Start 05/03/21 at 11:00; Stop 05/04/21 at 12:23; Status DC Epinephrine HCl (EPINEPHrine SYRINGE) 3 mg STK-MED ONCE .ROUTE ; Start 05/03/21 at 11:00; Stop 05/04/21 at 12:23; Status DC Potassium Chloride/Water 100 ml @ 100 mls/hr Q1H IV Last administered on 05/05/21at 12:19; Start 05/05/21 at 09:00; Stop 05/05/21 at 12:59; Status DC Potassium Chloride/Water 100 ml @ 100 mls/hr Q1H IV Last administered on 05/06/21at 11:05; Start 05/06/21 at 10:00; Stop 05/06/21 at 11:59; Status DC Insulin Human Lispro (HumaLOG) 0-7 UNITS Q6HRS SQ ; Start 05/07/21 at 12:00; Stop 05/10/21 at 11:00; Status DC Dextrose (Dextrose 50%-Water Syringe) 12.5 gm PRN Q15MIN PRN IV SEE COMMENTS; Start 05/07/21 at 08:00 Norepinephrine Bitartrate 8 mg/ Dextrose 258 ml @ 21.672 mls/ hr CONT PRN IV PER PROTOCOL Last administered on 05/17/21at 11:04; Start 05/07/21 at 11:30 Vancomycin HCl (Vancomycin Trough Level) 1 each 1X ONCE MC ; Start 05/09/21 at 11:30; Stop 05/09/21 at 11:31; Status DC Metoprolol Tartrate (Lopressor Vial) 5 mg PRN Q6HRS PRN IVP HYPERTENSION Last administered on 05/14/21at 16:51; Start 05/09/21 at 03:45 Scopolamine (Transderm-Scop) 1 patch Q3DAYS TD Last administered on 05/15/21at 07:49; Start 05/09/21 at 10:00 Dexmedetomidine HCl 400 mcg/ Sodium Chloride 100 ml @ 7,500 mls/hr CONT PRN IV PER PROTOCOL; Start 05/09/21 at 11:00; Stop 05/09/21 at 10:56; Status DC Dexmedetomidine HCl 400 mcg/ Sodium Chloride 100 ml @ 5 mls/hr CONT PRN IV PER PROTOCOL Last administered on 05/15/21at 21:21; Start 05/09/21 at 11:00; Stop 05/16/21 at 10:39; Status DC Potassium Bicarbonate (Potassium Effervescent Tablet) 20 meq 1X ONCE PEG Last administered on 05/09/21at 13:56; Start 05/09/21 at 14:00; Stop 05/09/21 at 14:01; Status DC Potassium Bicarbonate (Potassium Effervescent Tablet) 40 meq 1X ONCE PEG Last administered on 05/10/21at 10:23; Start 05/10/21 at 10:00; Stop 05/10/21 at 10:01; Status DC Vancomycin HCl 1.25 gm/Sodium Chloride 250 ml @ 167 mls/hr Q12H IV Last administered on 05/11/21at 11:34; Start 05/10/21 at 12:00; Stop 05/11/21 at 14:19; Status DC Potassium Bicarbonate (Potassium Effervescent Tablet) 40 meq 1X ONCE PO Last administered on 05/11/21at 10:55; Start 05/11/21 at 08:30; Stop 05/11/21 at 08:31; Status DC Midazolam HCl (Versed) 5 mg 1X ONCE IVP Last administered on 05/11/21at 11:34; Start 05/11/21 at 11:30; Stop 05/11/21 at 11:32; Status DC Potassium Chloride/Water 100 ml @ 100 mls/hr Q1H IV Last administered on 05/13/21at 10:23; Start 05/13/21 at 08:30; Stop 05/13/21 at 10:29; Status DC Fentanyl Citrate (Fentanyl 2ml Vial) 25 mcg PRN Q5MIN PRN IVP MILD PAIN 1-3; Start 05/15/21 at 06:00; Stop 05/15/21 at 20:00; Status DC Fentanyl Citrate (Fentanyl 2ml Vial) 50 mcg PRN Q5MIN PRN IVP MODERATE PAIN 4- 6; Start 05/15/21 at 06:00; Stop 05/15/21 at 20:00; Status DC Morphine Sulfate (Morphine Sulfate) 1 mg PRN Q10MIN PRN IVP SEVERE PAIN 7-10; Start 05/15/21 at 06:00; Stop 05/15/21 at 20:00; Status DC Ringer's Solution 1,000 ml @ 30 mls/hr Q24H IV Last administered on 05/15/21at 03:50; Start 05/15/21 at 06:00; Stop 05/15/21 at 17:59; Status DC Hydromorphone HCl (Dilaudid) 0.5 mg PRN Q10MIN PRN IVP SEVERE PAIN 7-10, 2nd CHOICE; Start 05/15/21 at 06:00; Stop 05/15/21 at 20:00; Status DC Prochlorperazine Edisylate (Compazine) 5 mg PACU PRN PRN IVP NAUSEA, MRX1; Start 05/15/21 at 06:00; Stop 05/15/21 at 20:00; Status DC Fentanyl Citrate 55 ml @ 1 mls/hr CONT PRN PRN IV SEE PROTOCOL Last administered on 05/17/21at 10:18; Start 05/15/21 at 07:45 Perflutren Protein Type A Microsphe (Optison) 0.66 mg 1X ONCE IV ; Start 05/15/21 at 07:45; Stop 05/15/21 at 07:46; Status DC Midazolam HCl (Versed) 5 mg 1X ONCE IVP Last administered on 05/15/21at 09:20; Start 05/15/21 at 09:15; Stop 05/15/21 at 09:16; Status DC Bupivacaine HCl/ Epinephrine Bitart (Sensorcain-Epi 0.5% Kit) 30 ml STK-MED ONCE INJ Last administered on 05/15/21at 09:49; Start 05/15/21 at 09:49; Stop 05/15/21 at 10:12; Status DC Cellulose (Surgicel Fibrillar 1x2) 1 each STK-MED ONCE TP Last administered on 05/15/21at 09:49; Start 05/15/21 at 09:49; Stop 05/15/21 at 10:12; Status DC Cellulose (Surgicel Hemostat 2x14) 1 each STK-MED ONCE SURGSITE Last administered on 05/15/21at 09:49; Start 05/15/21 at 09:49; Stop 05/15/21 at 1 0:12; Status DC Perflutren Protein Type A Microsphe (Optison) 0.66 mg STK-MED ONCE IV ; Start 05/15/21 at 07:00; Stop 05/15/21 at 13:03; Status DC Midazolam HCl (Versed) 5 mg STK-MED ONCE .ROUTE ; Start 05/11/21 at 11:32; Stop 05/15/21 at 13:06; Status DC Perflutren Protein Type A Microsphe (Optison) 0.66 mg STK-MED ONCE IV ; Start 05/15/21 at 06:29; Stop 05/15/21 at 13:44; Status DC Rocuronium Van (Zemuron) 100 mg STK-MED ONCE .ROUTE ; Start 05/15/21 at 08:39; Stop 05/15/21 at 13:48; Status DC Fentanyl Citrate (Fentanyl 2ml Vial) 100 mcg STK-MED ONCE .ROUTE ; Start 05/15/21 at 08:39; Stop 05/15/21 at 13:48; Status DC Cellulose (Surgicel Fibrillar 1x2) 1 each STK-MED ONCE .ROUTE ; Start 05/15/21 at 08:42; Stop 05/15/21 at 13:48; Status DC Bupivacaine HCl/ Epinephrine Bitart (Sensorcain-Epi 0.5% Kit) 30 ml STK-MED ONCE .ROUTE ; Start 05/15/21 at 08:43; Stop 05/15/21 at 13:48; Status DC Epinephrine HCl (Adrenalin) 1 mg STK-MED ONCE .ROUTE ; Start 05/15/21 at 08:43; Stop 05/15/21 at 13:48; Status DC Midazolam HCl (Versed) 5 mg STK-MED ONCE .ROUTE ; Start 05/15/21 at 09:09; Stop 05/15/21 at 13:49; Status DC Rocuronium Van (Zemuron) 50 mg STK-MED ONCE .ROUTE ; Start 05/15/21 at 09:49; Stop 05/15/21 at 13:49; Status DC Cellulose (Surgicel Hemostat 2x14) 1 each STK-MED ONCE .ROUTE ; Start 05/15/21 at 10:00; Stop 05/15/21 at 13:50; Status DC Perflutren Protein Type A Microsphe (Optison) 0.66 mg 1X ONCE IV Last administered on 05/15/21at 15:03; Start 05/15/21 at 15:15; Stop 05/15/21 at 15:16; Status DC Heparin Sodium (Porcine) (Heparin Sodium) 5,000 unit Q8HRS SQ Last administered on 05/17/21at 14:09; Start 05/16/21 at 14:00 Potassium Chloride/Water 100 ml @ 100 mls/hr Q1H IV Last administered on 05/17/21at 14:09; Start 05/17/21 at 11:00; Stop 05/17/21 at 13:59; Status DC Active Scripts Active Easy Neb Compressor Nebulizer (Nebulizer and Compressor) 1 Each Each Each MC PRN PRN Use with albuterol as needed every 4 hours Albuterol Sulfate Neb Soln (Albuterol Sulfate) 2.5 Mg/3 Ml Vial.neb 1 Vial NEB PRN Q4HRS PRN 30 Days Levofloxacin 750 Mg Tablet 1 Tab PO DAILY 5 Days Reported Seroquel (Quetiapine Fumarate) 25 Mg Tablet 25 Mg PO BID Mysoline (Primidone) 50 Mg Tablet 50 Mg PO DAILY Escitalopram Oxalate 20 Mg Tablet 20 Mg PO DAILY Omeprazole 20 Mg Capsule.dr 20 Mg PO DAILY Eliquis (Apixaban) 5 Mg Tablet 5 Mg PO BID Lasix (Furosemide) 40 Mg Tablet 40 Mg PO DAILY Vitals/I & O Vital Sign - Last 24 Hours 05/16/21 05/16/21 05/16/21 05/16/21 17:00 18:00 19:00 20:00 Pulse 65 64 64 Resp 20 20 20 B/P (MAP) 105/48 101/48 106/54 Pulse Ox 97 99 99 O2 Delivery Ventilator Ventilator Ventilator Mechanical Ventilator 05/16/21 05/16/21 05/16/21 05/16/21 20:00 20:00 21:00 22:00 Temp 99.1 99.1 Pulse 65 63 63 Resp 20 20 20 B/P (MAP) 108/44 102/45 111/51 Pulse Ox 100 96 98 99 O2 Delivery Ventilator Ventilator Ventilator Ventilator 05/16/21 05/16/21 05/17/21 05/17/21 23:00 23:00 00:01 01:00 Temp 99.9 99.9 Pulse 63 63 62 Resp 20 20 20 B/P (MAP) 101/50 103/49 112/53 Pulse Ox 99 95 99 97 O2 Delivery Ventilator Ventilator Ventilator Ventilator 05/17/21 05/17/21 05/17/21 05/17/21 01:00 02:00 03:00 04:00 Temp 98.8 98.8 Pulse 62 62 84 Resp 20 20 20 B/P (MAP) 117/52 137/58 112/57 Pulse Ox 96 97 97 97 O2 Delivery Ventilator Ventilator Ventilator Ventilator 05/17/21 05/17/21 05/17/21 05/17/21 04:30 05:00 06:00 07:00 Pulse 62 62 64 Resp 20 20 20 B/P (MAP) 104/48 96/50 97/44 Pulse Ox 100 100 100 100 O2 Delivery Ventilator Ventilator Ventilator Ventilator 05/17/21 05/17/21 05/17/21 05/17/21 08:00 08:00 08:03 09:00 Temp 98.8 98.8 Pulse 71 59 Resp 20 20 B/P (MAP) 103/53 84/45 Pulse Ox 100 100 100 O2 Delivery Mechanical Ventilator Ventilator Ventilator Ventilator 05/17/21 05/17/21 05/17/21 05/17/21 09:27 10:00 10:18 10:57 Pulse 60 Resp 20 20 19 B/P (MAP) 84/43 Pulse Ox 100 98 O2 Delivery Ventilator Ventilator 05/17/21 05/17/21 05/17/21 05/17/21 11:00 11:50 12:00 13:00 Temp 98.5 98.5 Pulse 66 67 70 Resp 20 20 20 B/P (MAP) 91/43 131/62 131/57 Pulse Ox 100 100 100 100 O2 Delivery Ventilator Ventilator Ventilator Ventilator 05/17/21 05/17/21 05/17/21 05/17/21 13:10 13:40 14:00 15:00 Pulse 70 65 72 77 Resp 20 20 20 20 B/P (MAP) 131/57 82/45 98/60 109/57 Pulse Ox 100 99 99 97 O2 Delivery Ventilator Ventilator Ventilator Ventilator 05/17/21 05/17/21 15:53 16:16 Temp 98.6 98.6 Pulse 81 Resp 20 B/P (MAP) 105/56 Pulse Ox 99 98 O2 Delivery Ventilator Ventilator Intake and Output 05/16/21 05/16/21 05/17/21 15:00 23:00 07:00 Intake Total 200 ml 742 ml 200 ml Output Total 340 ml 190 ml 335 ml Balance -140 ml 552 ml -135 ml Justifications for Admission Other Justification YUDITH RANGEL MD May 17, 2021 16:58
[2021-05-18] VITALS (24 sets, daily range): BP systolic 83–104; BP diastolic 43–82
[2021-05-18] MEDS: HEPARIN for SUB-Q USE 5,000 UNIT/ML VIAL. SQ SCH ×3 (06:30→22:00)
[2021-05-18 07:27] LABS: CALCIUM 7.7 mg/dL (8.5-10.1); CREATININE 0.5 mg/dL (0.6-1.0); GFR 124.6; MAGNESIUM 1.9 mg/dL (1.8-2.4); POTASSIUM 3.4 mmol/L (3.5-5.1)
[2021-05-18 07:44] LABS: BASE EXCESS ABG 2 mmol/L (-3-3); HCO3 ABG 26 mmol/L (21-28); PCO2 ABG 38 mmHg (35-46); PO2 ABG 63 mmHg (65-108); SAT O2 ABG 91 % (92-99)
[2021-05-18] MEDS: ELECTROLYTE (ICU) PROTOCOL. MC SCH (07:45)
[2021-05-18] MEDS ORDERED: POTASSIUM BICARB 20 MEQ EFFERVESCENT TABLET. PO ONE (07:45)
[2021-05-18] MEDS: PANTOPRAZOLE IV PUSH 40 MG VIAL. IVP SCH (08:05)
[2021-05-18] MEDS: SCOPOLAMINE 1.5MG PATCH. TD SCH (08:06)
[2021-05-18] MEDS: PRIMIDONE 50 MG TABLET PO SCH (08:06)
[2021-05-18] MEDS: QUEtiapine 25 MG TABLET. PO SCH ×2 (08:06→20:56)
[2021-05-18] MEDS: CITALOPRAM 20 MG TABLET. PO SCH ×2 (08:06→20:53)
[2021-05-18] MEDS: MIDAZOLAM 100mg/100ml NS BAG 100 ML IV PRN (08:14)
--- NOTE | 2021-05-18 09:23 | PDOC ---
PULMONARY PROGRESS NOTES DATE: 05/18/21 TIME: 09:23 Subjective Patient doing better off sedation, currently off of norepinephrine 35% FiO2 5 of PEEP Vitals Vital Signs Date Time Temp Pulse Resp B/P (MAP) Pulse Ox O2 Delivery O2 Flow Rate FiO2 05/18/21 09:00 68 20 92/43 97 Ventilator 05/18/21 08:00 99.0 99.0 Lungs: Other (Decreased breath sounds) Cardiovascular: S1, S2 Extremities: Other (1+) Skin: No Rashes Labs Laboratory Tests Test 05/17/21 06:00 05/17/21 08:29 05/18/21 06:35 05/18/21 07:36 White Blood Count 12.9 x10^3/uL (4.0-11.0) Red Blood Count 2.68 x10^6/uL (3.50-5.40) Hemoglobin 7.7 g/dL (12.0-15.5) Hematocrit 23.9 % (36.0-47.0) Mean Corpuscular Volume 89 fL (79-100) Mean Corpuscular Hemoglobin 29 pg (25-35) Mean Corpuscular Hemoglobin Concent 32 g/dL (31-37) Red Cell Distribution Width 15.7 % (11.5-14.5) Platelet Count 498 x10^3/uL (140-400) Sodium Level 140 mmol/L (136-145) 142 mmol/L (136-145) Potassium Level 3.0 mmol/L (3.5-5.1) 3.4 mmol/L (3.5-5.1) Chloride Level 105 mmol/L (98-107) 105 mmol/L (98-107) Carbon Dioxide Level 29 mmol/L (21-32) 29 mmol/L (21-32) Anion Gap 6 (6-14) 8 (6-14) Blood Urea Nitrogen 10 mg/dL (7-20) 13 mg/dL (7-20) Creatinine 0.5 mg/dL (0.6-1.0) 0.5 mg/dL (0.6-1.0) Estimated GFR (Cockcroft-Gault) 124.6 124.6 BUN/Creatinine Ratio 20 (6-20) Glucose Level 135 mg/dL (70-99) 98 mg/dL (70-99) Calcium Level 7.8 mg/dL (8.5-10.1) 7.7 mg/dL (8.5-10.1) Total Bilirubin 0.5 mg/dL (0.2-1.0) Aspartate Amino Transf (AST/SGOT) 42 U/L (15-37) Alanine Aminotransferase (ALT/SGPT) 86 U/L (14-59) Alkaline Phosphatase 205 U/L (46-116) Total Protein 5.3 g/dL (6.4-8.2) Albumin 1.9 g/dL (3.4-5.0) Albumin/Globulin Ratio 0.6 (1.0-1.7) O2 Saturation 96 % (92-99) 91 % (92-99) Arterial Blood pH 7.42 (7.35-7.45) 7.45 (7.35-7.45) Arterial Blood pCO2 at Patient Temp 43 mmHg (35-46) 38 mmHg (35-46) Arterial Blood pO2 at Patient Temp 87 mmHg (65-108) 63 mmHg (65-108) Arterial Blood HCO3 27 mmol/L (21-28) 26 mmol/L (21-28) Arterial Blood Base Excess 2 mmol/L (-3-3) 2 mmol/L (-3-3) FiO2 40 35% vent Magnesium Level 1.9 mg/dL (1.8-2.4) Laboratory Tests Test 05/18/21 06:35 05/18/21 07:36 Sodium Level 142 mmol/L (136-145) Potassium Level 3.4 mmol/L (3.5-5.1) Chloride Level 105 mmol/L (98-107) Carbon Dioxide Level 29 mmol/L (21-32) Anion Gap 8 (6-14) Blood Urea Nitrogen 13 mg/dL (7-20) Creatinine 0.5 mg/dL (0.6-1.0) Estimated GFR (Cockcroft-Gault) 124.6 Glucose Level 98 mg/dL (70-99) Calcium Level 7.7 mg/dL (8.5-10.1) Magnesium Level 1.9 mg/dL (1.8-2.4) O2 Saturation 91 % (92-99) Arterial Blood pH 7.45 (7.35-7.45) Arterial Blood pCO2 at Patient Temp 38 mmHg (35-46) Arterial Blood pO2 at Patient Temp 63 mmHg (65-108) Arterial Blood HCO3 26 mmol/L (21-28) Arterial Blood Base Excess 2 mmol/L (-3-3) FiO2 35% vent Medications Active Scripts Medications Dose Route/Sig Max Daily Dose Days Date Category Dose Instructions Easy Neb Compressor Nebulizer (Nebulizer and Compressor) 1 Each Each Each MC PRN PRN 05/01/21 Rx Use with albuterol as needed every 4 hours Albuterol Sulfate Neb Soln (Albuterol Sulfate) 2.5 Mg/3 Ml Vial.neb 1 Vial NEB PRN Q4HRS PRN 30 05/01/21 Rx Levofloxacin 750 Mg Tablet 1 Tab PO DAILY 5 05/01/21 Rx Seroquel (Quetiapine Fumarate) 25 Mg Tablet 25 Mg PO BID 04/26/21 Reported Mysoline (Primidone) 50 Mg Tablet 50 Mg PO DAILY 04/26/21 Reported Escitalopram Oxalate 20 Mg Tablet 20 Mg PO DAILY 03/26/21 Reported Omeprazole 20 Mg Capsule.dr 20 Mg PO DAILY 03/26/21 Reported Eliquis (Apixaban) 5 Mg Tablet 5 Mg PO BID 03/26/21 Reported Lasix (Furosemide) 40 Mg Tablet 40 Mg PO DAILY 03/26/21 Reported Impression . 1. Acute hypoxic respiratory failure secondary to likely hypoxic respiratory arrest leading to cardiac arrest.This is her second intubation in a week, . H/o tracheostomy 2. The patient with underlying history of COVID-19 viral pneumonia in late November and early December, had a trach, decannulated.. She required another hospitalization few weeks ago with respiratory failure, but was successfully extubated. April 27, 2021 3. Status post tracheostomy followed by decannulation.. November, December, [address] [facility] 4. CT revealed no tracheal stenosis, 05/07 5. Underlying obesity. 6. Chronic interstitial lung disease 7. History of bleeding around trach 8. Anemia 9. Left upper extremity weakness. ct head neg 10. Hypotension, possibly related to sedation 11. Hypokalemia. Page of Chest x-ray from the reviewed, diffuse infiltrates, no change Plan . Updated 05/18 Discussed with nurse Maintain off sedation Aggressive pulmonary hygiene Stable to transfer to LTAC Anticoagulation Monitor labs Updated 05/17 Discussed with RN, will discontinue Diprivan Continue current FiO2 Titrate Levophed off Discussed with RN A.m. labs and chest x-rays. Reviewed Replace Potassium Anticoagulation Monitor H&H. Stable to improved Monitor WBC, possibly steroid driven KASHMIR BLISS MD May 18, 2021 09:23
--- NOTE | 2021-05-18 11:28 | PDOC ---
[employer] PROGRESS NOTE Date of Service DOS: DATE: 05/18/21 TIME: 11:27 Chief Complaint Chief Complaint Respiratory failure Probable bacterial pneumonia Recent COVID-19 in November of last year Possible tracheal [place] History of tracheostomy with decannulation Chronic anticoagulation with some hemoptysis Septic shock Lactic acidosis Acute hypoxic respiratory failure secondary to likely bacterial pneumonia versus viral pneumonia, septic shock, lactic acidosis History of Present Illness History of Present Illness 05/18/2019 Patient seen and examined in the ICU She remains on the vent via tracheostomy AC/20/450/30 5% with 5 of PEEP O2 sat 98% Sedated with Versed Simon to bedside drainage Has OG running at 45 cc an hour Discussed with RN Chart reviewed 05/17/2021 Patient seen and examined in the ICU She remains on the vent AC/20/450/30 5% with 5 of PEEP Satting 99% Trach appears clean dry and intact She is sedated with Versed and fentanyl OG tube in place Rectal bag in place Simon to bedside drainage Chart reviewed Discussed with RN She remains critically ill 05/16/2021 Patient seen and examined in the ICU She got her tracheostomy yesterday Vent settings as follows AC/20/450/40 percent with 5 of PEEP Satting 100% Rectal bag in place Simon to bedside drainage SCDs in place OG feeds running at 45 cc an hour Sedated with Versed propofol and fentanyl She has mitts on for patient safety On IV Levophed Discussed with RN Chart reviewed She remains quite ill 05/15/2021 Patient seen and examined in the ICU She remains on the vent AC/20/450/40 percent with 5 of PEEP Satting 97% Sedated with propofol and fentanyl Discussed with general surgeon he is going to take her for a trach today Chart reviewed Discussed with RN 05/14/2021 Patient seen and examined in the ICU Discussed with RN Chart reviewed She remains on the vent AC/20/450/40 percent with 5 PEEP Rectal bag in place Simon to bedside drainage SCDs are in place OG feeds running at 45 cc an hour Mitts on for patient safety 05/11/2021 Patient seen and examined in the ICU She remains on the vent AC/20/450/40 percent with 5 of PEEP OG feeds at 45 cc an hour Sedated with Dex Has several family members present. 1 son named Tushar is here who I think is the DPOA They're discussing whether to go forward with tracheostomy Chart reviewed Discussed with RN She remains critically ill 05/10/2021 Patient seen and examined in the ICU She remains on the vent AC/20/450/40 percent with 5 PEEP Sedated with Dex Mitt on the right hand left hand not moving much per RN SCDs in place Simon to bedside drainage Chart reviewed Discussed with RN She remains extremely critically ill 05/09/2021 Patient seen and examined in the ICU Remains on the ventilator AC/20/450/40 +5 of PEEP Chart reviewed Discussed with RN He remains critically ill 05/08/2021 Patient seen and examined in the ICU She remains on the vent AC/20/450 with 40% FiO2 and 5 of PEEP Sedated with fentanyl and Versed On IV Levophed Discussed with RN Chart reviewed She remains very critically ill 05/07/2021 Patient seen and examined in the ICU He remains on the vent AC/20/450/40 percent with 5 of PEEP Sedated with Versed fentanyl and propofol Discussed with RN Chart reviewed She remains very critically ill 05/06/2021 Patient seen and examined in the ICU She remains on the ventilator AC/20/450/50 percent with 5 of PEEP OG at 40 cc an hour Sedated with fentanyl and propofol and Versed Has Simon to bedside drainage SCDs are in place Chart reviewed Discussed with RN She remains critically ill 05/05/2021 Patient seen and examined in the ICU She remains on the ventilator AC/20/450/50 percent with 5 of PEEP Simon bedside drainage SCDs in place OG at 30 cc an hour Sedated with fentanyl propofol and Versed Chart reviewed Discussed with RN She remains critically ill 05/04/2021 Patient seen and examined in the ICU She is currently on the vent AC/20/450/50 +5 of PEEP Chart reviewed Discussed with RN She is sedated with Versed fentanyl Has IV Levophed hanging Vitals/I&O Vitals/I&O: Vital Signs Date Time Temp Pulse Resp B/P (MAP) Pulse Ox O2 Delivery O2 Flow Rate FiO2 05/18/21 11:00 63 20 83/46 96 Ventilator 05/18/21 08:00 99.0 99.0 I & O 05/17/21 05/17/21 05/18/21 15:00 23:00 07:00 Intake Total 200 ml 1627 ml 392.6 ml Output Total 360 ml 820 ml 175 ml Balance -160 ml 807 ml 217.6 ml Physical Exam General: Other (Remains on a ventilator) Heart: Regular rate Lungs: Other (Decreased breath sounds) Abdomen: Normal bowel sounds Extremities: No clubbing, No cyanosis Skin: No significant lesion Labs Labs: Laboratory Tests Test 05/18/21 06:35 05/18/21 07:36 Sodium Level 142 mmol/L (136-145) Potassium Level 3.4 mmol/L (3.5-5.1) Chloride Level 105 mmol/L (98-107) Carbon Dioxide Level 29 mmol/L (21-32) Anion Gap 8 (6-14) Blood Urea Nitrogen 13 mg/dL (7-20) Creatinine 0.5 mg/dL (0.6-1.0) Estimated GFR (Cockcroft-Gault) 124.6 Glucose Level 98 mg/dL (70-99) Calcium Level 7.7 mg/dL (8.5-10.1) Magnesium Level 1.9 mg/dL (1.8-2.4) O2 Saturation 91 % (92-99) Arterial Blood pH 7.45 (7.35-7.45) Arterial Blood pCO2 at Patient Temp 38 mmHg (35-46) Arterial Blood pO2 at Patient Temp 63 mmHg (65-108) Arterial Blood HCO3 26 mmol/L (21-28) Arterial Blood Base Excess 2 mmol/L (-3-3) FiO2 35% vent Assessment and Plan Assessmemt and Plan Problems Medical Problems: (1) Cardiac arrest Status: Acute (2) Hypokalemia Status: Acute (3) Lactic acidosis Status: Acute (4) Pneumonia Status: Acute (5) Respiratory failure, acute Status: Acute (6) Septic shock Status: Acute Respiratory failure Probable bacterial pneumonia Recent COVID-19 in November of last year Possible tracheal [place] History of tracheostomy with decannulation Chronic anticoagulation with some hemoptysis Septic shock Lactic acidosis Acute hypoxic respiratory failure secondary to likely bacterial pneumonia versus viral pneumonia, septic shock, lactic acidosis Plan ICU monitoring Vent weaning Trach care IV antibiotics As needed sedation with Dex OG feeds Maintenance IV Trying to wean off Levophed Supportive care Monitor rectal bag Mitt for patient safety Home meds if possible Trend labs Appreciate subspecialist input DVT prophylaxis Full code Needs LTAC eval CC time 33 minutes Comment Review of Relevant I have reviewed the following items davina (where applicable) has been applied. Medications: Current Medications Medications (Trade) Dose Ordered Sig/Qing Route PRN Reason Start Time Stop Time Status Last Admin Dose Admin Potassium Bicarbonate (Potassium Effervescent Tablet) 40 meq 1X ONCE PO 05/18/21 07:45 05/18/21 07:46 DC 05/18/21 08:06 Justifications for Admission Other Justification LUCERO PERAZA III DO May 18, 2021 11:28
--- NOTE | 2021-05-18 14:22 | NUR ---
Allergies and reactions =penicillins,azithromycin,latex INR BUN 13 Cr 0.5 Platelets 498 Blood culture done Y blood culture results Negative Order Verified Y Consent signed Y Previous PICC placement N Past Medical/Surgical history and current diagnosis reviewed Y Patient Medical /Surgical History Arrhythmias Diabetes Infectious Disease consult Past central line or venous access device placement Problems breathing lying flat Special considerations for PICC line placement Anticoagulation therapy Infections PICC placement indication Caustic medication class drug usage, oysterman antibiotic usage, Multiple/ Frequent blood draws, Poor peripheral intravenous access Total Parenteral Nutrition (TPN) Anisha Marcelino RN name of PICC Nurse
--- NOTE | 2021-05-18 14:46 | NUR ---
SS following up with discharge planning. SS reviewed pt chart and discussed with pt RN. Pt is currently on the vent at 35%. COVID19 negative. Pt on Fentanyl and Versed. Tube feeds. Trach in place. Full Code. Referrals sent for LTACH on 05/15/2021. [facility] re-reviewing pt. Pt accepted at [facility], ; fax [phone], pending new insurance information. Per pt's family pt's will change insurance to [employer] on 05/22/2021. Currently awaiting family to provide new policy information. Family reported that they would provide new insurance information by Friday. Clinical updates phoned and faxed to [facility] and [facility]. SS will continue to follow for discharge planning.
--- NOTE | 2021-05-18 15:53 | NUR ---
Procedure: Following complete explanation of the PICC procedure including the indications, risks, and potential complications, informed consent was obtained. The possibility for infection was discussed along with signs, symptoms, and prevention. All the questions were answered. Written and verbal patient education was provided. Hand hygiene performed. Standardized central line checklist was utilized. The patient was placed in the supine position, the arm was prepped with chlorhexidine and patient draped with maximum sterile barrier. 3 mL 1% lidocaine was infiltrated into the skin to provide local anesthesia. A thorough assessment of right upper extremity completed. Using real-time ultrasound guidance and standardized micro puncture set, the cephalic vein was punctured and a peel away sheath was placed using the modified Seldinger technique. A tip location device was used to ensure adequate catheter placement. The catheter was secured using a securement device and an antimicrobial patch was applied directly on the insertion site followed by a transparent dressing. All ports withdraw blood and flush without resistance. Patient tolerated the procedure without apparent complication(s). Triple Lumen Power PICC placement successful and uncomplicated. Placement verified by EKG tip confirmation system and/or chest x-ray. Tip located in the CAJ of the SVC. Complications: None
[2021-05-18] MEDS: fentaNYL HIGH DOSE PCA 55 ML IV PRN (20:47)
[2021-05-19] VITALS (26 sets, daily range): BP systolic 72–179; BP diastolic 36–95
[2021-05-19] MEDS: HEPARIN for SUB-Q USE 5,000 UNIT/ML VIAL. SQ SCH ×3 (05:53→21:47)
[2021-05-19 05:55] LABS: CALCIUM 7.8 mg/dL (8.5-10.1); CREATININE 0.5 mg/dL (0.6-1.0); GFR 124.6; POTASSIUM 3.6 mmol/L (3.5-5.1)
--- NOTE | 2021-05-19 08:15 | PDOC ---
PULMONARY PROGRESS NOTES DATE: 05/19/21 TIME: 08:14 Subjective Patient awake to verbal stimuli No overnight events patient doing better off sedation, currently off of norepinephrine 35% FiO2 5 of PEEP Vitals Vital Signs Date Time Temp Pulse Resp B/P (MAP) Pulse Ox O2 Delivery O2 Flow Rate FiO2 05/19/21 06:00 105 21 112/57 95 Ventilator 05/19/21 04:00 97.7 97.7 Lungs: Other (Decreased breath sounds) Cardiovascular: S1, S2 Extremities: Other (1+) Skin: No Rashes Labs Laboratory Tests Test 05/17/21 08:29 05/18/21 06:35 05/18/21 07:36 05/19/21 05:15 O2 Saturation 96 % (92-99) 91 % (92-99) Arterial Blood pH 7.42 (7.35-7.45) 7.45 (7.35-7.45) Arterial Blood pCO2 at Patient Temp 43 mmHg (35-46) 38 mmHg (35-46) Arterial Blood pO2 at Patient Temp 87 mmHg (65-108) 63 mmHg (65-108) Arterial Blood HCO3 27 mmol/L (21-28) 26 mmol/L (21-28) Arterial Blood Base Excess 2 mmol/L (-3-3) 2 mmol/L (-3-3) FiO2 40 35% vent Sodium Level 142 mmol/L (136-145) 137 mmol/L (136-145) Potassium Level 3.4 mmol/L (3.5-5.1) 3.6 mmol/L (3.5-5.1) Chloride Level 105 mmol/L (98-107) 104 mmol/L (98-107) Carbon Dioxide Level 29 mmol/L (21-32) 30 mmol/L (21-32) Anion Gap 8 (6-14) 3 (6-14) Blood Urea Nitrogen 13 mg/dL (7-20) 14 mg/dL (7-20) Creatinine 0.5 mg/dL (0.6-1.0) 0.5 mg/dL (0.6-1.0) Estimated GFR (Cockcroft-Gault) 124.6 124.6 Glucose Level 98 mg/dL (70-99) 96 mg/dL (70-99) Calcium Level 7.7 mg/dL (8.5-10.1) 7.8 mg/dL (8.5-10.1) Magnesium Level 1.9 mg/dL (1.8-2.4) Laboratory Tests Test 05/19/21 05:15 Sodium Level 137 mmol/L (136-145) Potassium Level 3.6 mmol/L (3.5-5.1) Chloride Level 104 mmol/L (98-107) Carbon Dioxide Level 30 mmol/L (21-32) Anion Gap 3 (6-14) Blood Urea Nitrogen 14 mg/dL (7-20) Creatinine 0.5 mg/dL (0.6-1.0) Estimated GFR (Cockcroft-Gault) 124.6 Glucose Level 96 mg/dL (70-99) Calcium Level 7.8 mg/dL (8.5-10.1) Medications Active Scripts Medications Dose Route/Sig Max Daily Dose Days Date Category Dose Instructions Easy Neb Compressor Nebulizer (Nebulizer and Compressor) 1 Each Each Each MC PRN PRN 05/01/21 Rx Use with albuterol as needed every 4 hours Albuterol Sulfate Neb Soln (Albuterol Sulfate) 2.5 Mg/3 Ml Vial.neb 1 Vial NEB PRN Q4HRS PRN 30 05/01/21 Rx Levofloxacin 750 Mg Tablet 1 Tab PO DAILY 5 05/01/21 Rx Seroquel (Quetiapine Fumarate) 25 Mg Tablet 25 Mg PO BID 04/26/21 Reported Mysoline (Primidone) 50 Mg Tablet 50 Mg PO DAILY 04/26/21 Reported Escitalopram Oxalate 20 Mg Tablet 20 Mg PO DAILY 03/26/21 Reported Omeprazole 20 Mg Capsule.dr 20 Mg PO DAILY 03/26/21 Reported Eliquis (Apixaban) 5 Mg Tablet 5 Mg PO BID 03/26/21 Reported Lasix (Furosemide) 40 Mg Tablet 40 Mg PO DAILY 03/26/21 Reported Impression . 1. Acute hypoxic respiratory failure secondary to likely hypoxic respiratory arrest leading to cardiac arrest.This is her second intubation in a week, . H/o tracheostomy 2. The patient with underlying history of COVID-19 viral pneumonia in late November and early December, had a trach, decannulated.. She required another hospitalization few weeks ago with respiratory failure, but was successfully extubated. April 27, 2021 3. Status post tracheostomy followed by decannulation.. November,December, [facility] 4. CT revealed no tracheal stenosis, 05/07 5. Underlying obesity. 6. Chronic interstitial lung disease 7. History of bleeding around trach 8. Anemia 9. Left upper extremity weakness. ct head neg 10. Hypotension, possibly related to sedation 11. Hypokalemia. Page of Chest x-ray from the reviewed, diffuse infiltrates, no change Plan . Updated 05/19 Decrease sedation As needed sedation Pulmonary hygiene Anticoagulation Monitor H&H Possible transfer to LTAC next week Monitor labs KASHMIR BLISS MD May 19, 2021 08:15
[2021-05-19 08:32] LABS: BASE EXCESS ABG 2 mmol/L (-3-3); HCO3 ABG 26 mmol/L (21-28); PCO2 ABG 38 mmHg (35-46); PO2 ABG 75 mmHg (65-108); SAT O2 ABG 94 % (92-99)
[2021-05-19] MEDS: PANTOPRAZOLE IV PUSH 40 MG VIAL. IVP SCH (08:37)
[2021-05-19] MEDS: CITALOPRAM 20 MG TABLET. PO SCH (08:37)
[2021-05-19] MEDS: QUEtiapine 25 MG TABLET. PO SCH ×2 (08:37→20:49)
[2021-05-19] MEDS: PRIMIDONE 50 MG TABLET PO SCH (08:37)
[2021-05-19] MEDS ORDERED: IV RINGERS,LACTATED 1000ML 1,000 ML IV ONE (08:45)
[2021-05-19] MEDS: ELECTROLYTE (ICU) PROTOCOL. MC SCH (08:51)
[2021-05-19 08:56] LABS: FIO2 ABG 35% ac 20 450 5
--- NOTE | 2021-05-19 10:46 | PDOC ---
[facility] PROGRESS NOTE Date of Service DOS: DATE: 05/19/21 TIME: 10:44 Chief Complaint Chief Complaint Respiratory failure Probable bacterial pneumonia Recent COVID-19 in November of last year Possible tracheal [place] History of tracheostomy with decannulation Chronic anticoagulation with some hemoptysis Septic shock Lactic acidosis Acute hypoxic respiratory failure secondary to likely bacterial pneumonia versus viral pneumonia, septic shock, lactic acidosis History of Present Illness History of Present Illness 05/19/2021 Patient seen and examined in the ICU She remains on the vent via tracheostomy AC/20/450/30 5% with 5 of PEEP Sedated with fentanyl and Versed Has OG feed running at 45 cc an hour Simon bedside drainage Chart reviewed Discussed with RN 05/18/2019 Patient seen and examined in the ICU She remains on the vent via tracheostomy AC/20/450/30 5% with 5 of PEEP O2 sat 98% Sedated with Versed Simon to bedside drainage Has OG running at 45 cc an hour Discussed with RN Chart reviewed 05/17/2021 Patient seen and examined in the ICU She remains on the vent AC/20/450/30 5% with 5 of PEEP Satting 99% Trach appears clean dry and intact She is sedated with Versed and fentanyl OG tube in place Rectal bag in place Simon to bedside drainage Chart reviewed Discussed with RN She remains critically ill 05/16/2021 Patient seen and examined in the ICU She got her tracheostomy yesterday Vent settings as follows AC/20/450/40 percent with 5 of PEEP Satting 100% Rectal bag in place Simon to bedside drainage SCDs in place OG feeds running at 45 cc an hour Sedated with Versed propofol and fentanyl She has mitts on for patient safety On IV Levophed Discussed with RN Chart reviewed She remains quite ill 05/15/2021 Patient seen and examined in the ICU She remains on the vent AC/20/450/40 percent with 5 of PEEP Satting 97% Sedated with propofol and fentanyl Discussed with general surgeon he is going to take her for a trach today Chart reviewed Discussed with RN 05/14/2021 Patient seen and examined in the ICU Discussed with RN Chart reviewed She remains on the vent AC/20/450/40 percent with 5 PEEP Rectal bag in place Simon to bedside drainage SCDs are in place OG feeds running at 45 cc an hour Mitts on for patient safety 05/11/2021 Patient seen and examined in the ICU She remains on the vent AC/20/450/40 percent with 5 of PEEP OG feeds at 45 cc an hour Sedated with Dex Has several family members present. 1 son named Tushar is here who I think is the DPOA They're discussing whether to go forward with tracheostomy Chart reviewed Discussed with RN She remains critically ill 05/10/2021 Patient seen and examined in the ICU She remains on the vent AC/20/450/40 percent with 5 PEEP Sedated with Dex Mitt on the right hand left hand not moving much per RN SCDs in place Simon to bedside drainage Chart reviewed Discussed with RN She remains extremely critically ill 05/09/2021 Patient seen and examined in the ICU Remains on the ventilator AC/20/450/40 +5 of PEEP Chart reviewed Discussed with RN He remains critically ill 05/08/2021 Patient seen and examined in the ICU She remains on the vent AC/20/450 with 40% FiO2 and 5 of PEEP Sedated with fentanyl and Versed On IV Levophed Discussed with RN Chart reviewed She remains very critically ill 05/07/2021 Patient seen and examined in the ICU He remains on the vent AC/20/450/40 percent with 5 of PEEP Sedated with Versed fentanyl and propofol Discussed with RN Chart reviewed She remains very critically ill 05/06/2021 Patient seen and examined in the ICU She remains on the ventilator AC/20/450/50 percent with 5 of PEEP OG at 40 cc an hour Sedated with fentanyl and propofol and Versed Has Simon to bedside drainage SCDs are in place Chart reviewed Discussed with RN She remains critically ill 05/05/2021 Patient seen and examined in the ICU She remains on the ventilator AC/20/450/50 percent with 5 of PEEP Simon bedside drainage SCDs in place OG at 30 cc an hour Sedated with fentanyl propofol and Versed Chart reviewed Discussed with RN She remains critically ill 05/04/2021 Patient seen and examined in the ICU She is currently on the vent AC/20/450/50 +5 of PEEP Chart reviewed Discussed with RN She is sedated with Versed fentanyl Has IV Levophed hanging Vitals/I&O Vitals/I&O: Vital Signs Date Time Temp Pulse Resp B/P (MAP) Pulse Ox O2 Delivery O2 Flow Rate FiO2 05/19/21 09:00 105 21 116/65 96 Ventilator 05/19/21 08:00 99.1 99.1 I & O 05/18/21 05/18/21 05/19/21 15:00 23:00 07:00 Intake Total 200 ml 823 ml 951 ml Output Total 75 ml 215 ml 170 ml Balance 125 ml 608 ml 781 ml Physical Exam General: Other (Remains on a ventilator) Heart: Regular rate Lungs: Other (Decreased breath sounds) Abdomen: Normal bowel sounds Extremities: No clubbing, No cyanosis Skin: No significant lesion Labs Labs: Laboratory Tests Test 05/19/21 05:15 05/19/21 08:00 Sodium Level 137 mmol/L (136-145) Potassium Level 3.6 mmol/L (3.5-5.1) Chloride Level 104 mmol/L (98-107) Carbon Dioxide Level 30 mmol/L (21-32) Anion Gap 3 (6-14) Blood Urea Nitrogen 14 mg/dL (7-20) Creatinine 0.5 mg/dL (0.6-1.0) Estimated GFR (Cockcroft-Gault) 124.6 Glucose Level 96 mg/dL (70-99) Calcium Level 7.8 mg/dL (8.5-10.1) O2 Saturation 94 % (92-99) Arterial Blood pH 7.46 (7.35-7.45) Arterial Blood pCO2 at Patient Temp 38 mmHg (35-46) Arterial Blood pO2 at Patient Temp 75 mmHg (65-108) Arterial Blood HCO3 26 mmol/L (21-28) Arterial Blood Base Excess 2 mmol/L (-3-3) FiO2 35% ac 20 450 5 Assessment and Plan Assessmemt and Plan Problems Medical Problems: (1) Cardiac arrest Status: Acute (2) Hypokalemia Status: Acute (3) Lactic acidosis Status: Acute (4) Pneumonia Status: Acute (5) Respiratory failure, acute Status: Acute (6) Septic shock Status: Acute Respiratory failure Probable bacterial pneumonia Recent COVID-19 in November of last year Possible tracheal [place] History of tracheostomy with decannulation Chronic anticoagulation with some hemoptysis Septic shock Lactic acidosis Acute hypoxic respiratory failure secondary to likely bacterial pneumonia versus viral pneumonia, septic shock, lactic acidosis Plan ICU monitoring Vent weaning Trach care Scopolamine patch GI prophylaxis with Protonix As needed sedation with Dex OG feeds Maintenance IV Monitor rectal bag Mitt for patient safety Home meds if possible Trend labs Appreciate subspecialist input DVT prophylaxis Full code Needs LTAC eval CC time 31 minutes Comment Review of Relevant I have reviewed the following items davina (where applicable) has been applied. Medications: Current Medications Medications (Trade) Dose Ordered Sig/Qing Route PRN Reason Start Time Stop Time Status Last Admin Dose Admin Ringer's Solution 1,000 ml @ 1,000 mls/hr 1X ONCE IV 05/19/21 08:45 05/19/21 09:44 DC 05/19/21 08:42 Justifications for Admission Other Justification LUCERO PERAZA III DO May 19, 2021 10:46
[2021-05-19] MEDS ORDERED: ATROPINE 0.5 MG/5 ML DISP.SYRINGE. IV PRN (11:30)
[2021-05-19] MEDS ORDERED: IV NORMAL SALINE 500ML BAG 500 ML IV PRN (11:30)
[2021-05-19] MEDS: IV RINGERS,LACTATED 1000ML 1,000 ML IV SCH (11:32)
[2021-05-19] MEDS: DEXMEDETOMIDINE 400 MCG in IV NORMAL SALINE 100ML 96 ML IV PRN (11:33)
--- NOTE | 2021-05-19 16:01 | PDOC ---
CARDIOLOGY PROGRESS NOTE SUBJECTIVE: No new CV issues. No chest pain. Sedated. OBJECTIVE: Vital Signs/I&O: Vital Signs Date Time Temp Pulse Resp B/P (MAP) Pulse Ox O2 Delivery O2 Flow Rate FiO2 05/19/21 15:54 94 Ventilator 05/19/21 15:00 88 22 107/55 05/19/21 12:00 98.9 98.9 I & O 05/18/21 05/18/21 05/19/21 15:00 23:00 07:00 Intake Total 200 ml 823 ml 951 ml Output Total 75 ml 215 ml 170 ml Balance 125 ml 608 ml 781 ml Objective: Objective: The patient appeared well nourished and normally developed. Trach in place. Lungs are clear to auscultation and percussion. Cardiac exam reveals the PMI to be normally sized and situated. Rhythm is regular. First and second heart sounds normal. No murmurs, rubs or gallops. Abdominal exam reveals normal bowel sounds, no masses, no organomegaly and no aortic enlargement. Extremities are nonedematous and both femoral and pedal pulses are normal. Msk: No traumua Neuro: No focal deficits CURRENT MEDICATIONS: No current CV meds. DIAGNOSTIC TESTING: Labs reviewed. ASSESSMENT: ASSESSMENT: 1. Out of hospital cardiac arrest, presumed to be secondary to aspiration and hypoxia 2. History of Eliquis use, etiology is unclear 3. Acute on chronic respiratory failure PLAN: 1. Echo wnl. No new CV issues. Tele wnl. Supportive care. Justicifation of Admission Dx: Justifications for Admission: Justification of Admission Dx: Yes STONE BUSBY MD May 19, 2021 16:01
[2021-05-19] MEDS: NOREPINEPHRINE VIAL 8 MG in IV DEXTROSE 5% 250 ML IV PRN (23:15)
[2021-05-20] VITALS (30 sets, daily range): BP systolic 69–221; BP diastolic 36–94
[2021-05-20] MEDS: DEXMEDETOMIDINE 400 MCG in IV NORMAL SALINE 100ML 96 ML IV PRN ×4 (01:21→19:17)
[2021-05-20] MEDS: IV RINGERS,LACTATED 1000ML 1,000 ML IV SCH ×2 (03:01→19:38)
[2021-05-20] MEDS: HEPARIN for SUB-Q USE 5,000 UNIT/ML VIAL. SQ SCH ×3 (05:51→21:48)
[2021-05-20 08:55] LABS: BASE EXCESS ABG 4 mmol/L (-3-3); HCO3 ABG 29 mmol/L (21-28); PCO2 ABG 43 mmHg (35-46); PO2 ABG 69 mmHg (65-108); SAT O2 ABG 92 % (92-99)
[2021-05-20] MEDS: ELECTROLYTE (ICU) PROTOCOL. MC SCH (09:00)
--- NOTE | 2021-05-20 09:06 | PDOC ---
PULMONARY PROGRESS NOTES DATE: 05/20/21 TIME: 09:05 Subjective Patient back on Precedex 35% FiO2 5 of PEEP Vitals Vital Signs Date Time Temp Pulse Resp B/P (MAP) Pulse Ox O2 Delivery O2 Flow Rate FiO2 05/20/21 08:11 113 26 166/73 93 Ventilator 05/20/21 07:00 98.6 98.6 Lungs: Other (Decreased breath sounds) Cardiovascular: S1, S2 Extremities: Other (1+) Skin: No Rashes Labs Laboratory Tests Test 05/19/21 05:15 05/19/21 08:00 Sodium Level 137 mmol/L (136-145) Potassium Level 3.6 mmol/L (3.5-5.1) Chloride Level 104 mmol/L (98-107) Carbon Dioxide Level 30 mmol/L (21-32) Anion Gap 3 (6-14) Blood Urea Nitrogen 14 mg/dL (7-20) Creatinine 0.5 mg/dL (0.6-1.0) Estimated GFR (Cockcroft-Gault) 124.6 Glucose Level 96 mg/dL (70-99) Calcium Level 7.8 mg/dL (8.5-10.1) O2 Saturation 94 % (92-99) Arterial Blood pH 7.46 (7.35-7.45) Arterial Blood pCO2 at Patient Temp 38 mmHg (35-46) Arterial Blood pO2 at Patient Temp 75 mmHg (65-108) Arterial Blood HCO3 26 mmol/L (21-28) Arterial Blood Base Excess 2 mmol/L (-3-3) FiO2 35% ac 20 450 5 Medications Active Scripts Medications Dose Route/Sig Max Daily Dose Days Date Category Dose Instructions Easy Neb Compressor Nebulizer (Nebulizer and Compressor) 1 Each Each Each MC PRN PRN 05/01/21 Rx Use with albuterol as needed every 4 hours Albuterol Sulfate Neb Soln (Albuterol Sulfate) 2.5 Mg/3 Ml Vial.neb 1 Vial NEB PRN Q4HRS PRN 30 05/01/21 Rx Levofloxacin 750 Mg Tablet 1 Tab PO DAILY 5 05/01/21 Rx Seroquel (Quetiapine Fumarate) 25 Mg Tablet 25 Mg PO BID 04/26/21 Reported Mysoline (Primidone) 50 Mg Tablet 50 Mg PO DAILY 04/26/21 Reported Escitalopram Oxalate 20 Mg Tablet 20 Mg PO DAILY 03/26/21 Reported Omeprazole 20 Mg Capsule.dr 20 Mg PO DAILY 03/26/21 Reported Eliquis (Apixaban) 5 Mg Tablet 5 Mg PO BID 03/26/21 Reported Lasix (Furosemide) 40 Mg Tablet 40 Mg PO DAILY 03/26/21 Reported Impression . 1. Acute hypoxic respiratory failure secondary to likely hypoxic respiratory arrest leading to cardiac arrest.This is her second intubation in a week, . H/o tracheostomy 2. The patient with underlying history of COVID-19 viral pneumonia in late November and early December, had a trach, decannulated.. She required another hospitalization few weeks ago with respiratory failure, but was successfully extubated. April 27, 2021 3. Status post tracheostomy followed by decannulation.. November, December, 2020 [facility] 4[address] CT revealed no tracheal stenosis, 05/07 5. Underlying obesity. 6. Chronic interstitial lung disease 7. History of bleeding around trach 8. Anemia 9. Left upper extremity weakness. ct head neg 10. Hypotension, possibly related to sedation 11. Hypokalemia. Page of Chest x-ray from the reviewed, diffuse infiltrates, no change Plan . Updated 05/20 Discussed with RN, although scheduled DC Precedex if possible Monitor labs As needed sedation Pulmonary hygiene Anticoagulation Monitor H&H Possible transfer to LTAC next week KASHMIR BLISS MD May 20, 2021 09:06
--- NOTE | 2021-05-20 09:56 | EKG ---
[facility] [address] [place] [address] Test Date: 2021-05-20 Test Time: 09:53:35 Pat Name: TENZIN HENLEY Department: Room: 103 1 Gender: F Technical Staff Engineer: : [id number] Requested By: KASHMIR BLISS Order Number: [id number] Reading MD: Kishan Cutler Measurements Intervals [place] Rate: 100 P: 39 MN: 164 QRS: -9 QRSD: 76 T: 52 QT: 358 QTc: 465 Interpretive Statements SINUS RHYTHM LEFTWARD AXIS Electronically Signed On 05-24-2021 14:18:42 [employer]ON[employer]AL [employer]IAL WORKER by Kishan Cutler
[2021-05-20] MEDS: PANTOPRAZOLE IV PUSH 40 MG VIAL. IVP SCH (10:12)
[2021-05-20] MEDS: PRIMIDONE 50 MG TABLET PO SCH (10:13)
[2021-05-20] MEDS: HALOPERIDOL LACTATE 5 MG/ML VIAL. IVP SCH ×3 (10:13→21:46)
[2021-05-20] MEDS: CITALOPRAM 20 MG TABLET. PO SCH (10:13)
[2021-05-20] MEDS: fentaNYL HIGH DOSE PCA 55 ML IV PRN (10:15)
--- NOTE | 2021-05-20 11:34 | PDOC ---
CARDIOLOGY PROGRESS NOTE SUBJECTIVE: No new events overnight. OBJECTIVE: Vital Signs/I&O: Vital Signs Date Time Temp Pulse Resp B/P (MAP) Pulse Ox O2 Delivery O2 Flow Rate FiO2 05/20/21 10:15 93 97.0 05/20/21 08:11 113 26 166/73 Ventilator 05/20/21 07:00 98.6 98.6 I & O 05/19/21 05/19/21 05/20/21 15:00 23:00 07:00 Intake Total 200 ml 3018 ml 1379.03 ml Output Total 150 ml 185 ml 55 ml Balance 50 ml 2833 ml 1324.03 ml Objective: The patient appeared well nourished and normally developed. Head exam is unremarkable. Lungs are clear to auscultation and percussion. Cardiac exam reveals the PMI to be normally sized and situated. Rhythm is regular. First and second heart sounds normal. No murmurs, rubs or gallops. Abdominal exam reveals normal bowel sounds, no masses, no organomegaly and no aortic enlargement. Extremities are nonedematous and both femoral and pedal pulses are normal. Msk: No traumua Neuro: No focal deficits CURRENT MEDICATIONS: No current cardiovascular medications DIAGNOSTIC TESTING: Laboratory studies reviewed Fluid balance reviewed and appears that the patient is approximately 22 L positive since admission. Discussed with nursing staff Labs: Labs reviewed ASSESSMENT: 1. Acute on chronic respiratory failure 2. Probable diastolic heart failure 3. Anemia of chronic disease PLAN: 1. We will start Lasix 40 mg IV twice daily to help with diuresis. Monitor potassium levels and repeat BMP tomorrow along with CBC to ensure stable blood counts. Justicifation of Admission Dx: Justifications for Admission: Justification of Admission Dx: Yes STONE BUSBY MD May 20, 2021 11:34
--- NOTE | 2021-05-20 12:29 | PDOC ---
[employer] [facility] PROGRESS NOTE Date of Service DOS: DATE: 05/20/21 TIME: 12:27 Chief Complaint Chief Complaint Respiratory failure Status post tracheostomy Probable bacterial pneumonia Recent COVID-19 in November of last year Possible tracheal [place] CHF History of tracheostomy with decannulation Chronic anticoagulation with some hemoptysis Septic shock Lactic acidosis Acute hypoxic respiratory failure secondary to likely bacterial pneumonia versus viral pneumonia, septic shock, lactic acidosis History of Present Illness History of Present Illness 05/20/2021 Patient seen and examined in the ICU She remains on the ventilator AC/20/45/35% with 5 of PEEP Satting 95% Tracheostomy appears intact Simon to bedside drainage Has OG feeds running at 45 cc an hour SCDs in place She is sedated with Precedex and fentanyl Discussed with RN Chart reviewed 05/19/2021 Patient seen and examined in the ICU She remains on the vent via tracheostomy AC/20/450/30 5% with 5 of PEEP Sedated with fentanyl and Versed Has OG feed running at 45 cc an hour Simon bedside drainage Chart reviewed Discussed with RN 05/18/2019 Patient seen and examined in the ICU She remains on the vent via tracheostomy AC/20/450/30 5% with 5 of PEEP O2 sat 98% Sedated with Versed Simon to bedside drainage Has OG running at 45 cc an hour Discussed with RN Chart reviewed 05/17/2021 Patient seen and examined in the ICU She remains on the vent AC/20/450/30 5% with 5 of PEEP Satting 99% Trach appears clean dry and intact She is sedated with Versed and fentanyl OG tube in place Rectal bag in place Simon to bedside drainage Chart reviewed Discussed with RN She remains critically ill 05/16/2021 Patient seen and examined in the ICU She got her tracheostomy yesterday Vent settings as follows AC/20/450/40 percent with 5 of PEEP Satting 100% Rectal bag in place Simon to bedside drainage SCDs in place OG feeds running at 45 cc an hour Sedated with Versed propofol and fentanyl She has mitts on for patient safety On IV Levophed Discussed with RN Chart reviewed She remains quite ill 05/15/2021 Patient seen and examined in the ICU She remains on the vent AC/20/450/40 percent with 5 of PEEP Satting 97% Sedated with propofol and fentanyl Discussed with general surgeon he is going to take her for a trach today Chart reviewed Discussed with RN 05/14/2021 Patient seen and examined in the ICU Discussed with RN Chart reviewed She remains on the vent AC/20/450/40 percent with 5 PEEP Rectal bag in place Simon to bedside drainage SCDs are in place OG feeds running at 45 cc an hour Mitts on for patient safety 05/11/2021 Patient seen and examined in the ICU She remains on the vent AC/20/450/40 percent with 5 of PEEP OG feeds at 45 cc an hour Sedated with Dex Has several family members present. 1 son named Tushar is here who I think is the DPOA They're discussing whether to go forward with tracheostomy Chart reviewed Discussed with RN She remains critically ill 05/10/2021 Patient seen and examined in the ICU She remains on the vent AC/20/450/40 percent with 5 PEEP Sedated with Dex Mitt on the right hand left hand not moving much per RN SCDs in place Simon to bedside drainage Chart reviewed Discussed with RN She remains extremely critically ill 05/09/2021 Patient seen and examined in the ICU Remains on the ventilator AC/20/450/40 +5 of PEEP Chart reviewed Discussed with RN He remains critically ill 05/08/2021 Patient seen and examined in the ICU She remains on the vent AC/20/450 with 40% FiO2 and 5 of PEEP Sedated with fentanyl and Versed On IV Levophed Discussed with RN Chart reviewed She remains very critically ill 05/07/2021 Patient seen and examined in the ICU He remains on the vent AC/20/450/40 percent with 5 of PEEP Sedated with Versed fentanyl and propofol Discussed with RN Chart reviewed She remains very critically ill 05/06/2021 Patient seen and examined in the ICU She remains on the ventilator AC/20/450/50 percent with 5 of PEEP OG at 40 cc an hour Sedated with fentanyl and propofol and Versed Has Simon to bedside drainage SCDs are in place Chart reviewed Discussed with RN She remains critically ill 05/05/2021 Patient seen and examined in the ICU She remains on the ventilator AC/20/450/50 percent with 5 of PEEP Simon bedside drainage SCDs in place OG at 30 cc an hour Sedated with fentanyl propofol and Versed Chart reviewed Discussed with RN She remains critically ill 05/04/2021 Patient seen and examined in the ICU She is currently on the vent AC/20/450/50 +5 of PEEP Chart reviewed Discussed with RN She is sedated with Versed fentanyl Has IV Levophed hanging Vitals/I&O Vitals/I&O: Vital Signs Date Time Temp Pulse Resp B/P (MAP) Pulse Ox O2 Delivery O2 Flow Rate FiO2 05/20/21 12:23 91 Ventilator 05/20/21 10:15 97.0 05/20/21 08:11 113 26 166/73 05/20/21 07:00 98.6 98.6 I & O 05/19/21 05/19/21 05/20/21 15:00 23:00 07:00 Intake Total 200 ml 3018 ml 1379.03 ml Output Total 150 ml 185 ml 55 ml Balance 50 ml 2833 ml 1324.03 ml Physical Exam General: Other (Remains on a ventilator) Heart: Regular rate Lungs: Other (Decreased breath sounds) Abdomen: Normal bowel sounds Extremities: No clubbing, No cyanosis Skin: No significant lesion Assessment and Plan Assessmemt and Plan Problems Medical Problems: (1) Cardiac arrest Status: Acute (2) Hypokalemia Status: Acute (3) Lactic acidosis Status: Acute (4) Pneumonia Status: Acute (5) Respiratory failure, acute Status: Acute (6) Septic shock Status: Acute Respiratory failure Status post tracheostomy Probable bacterial pneumonia Recent COVID-19 in November of last year Possible tracheal [place] CHF History of tracheostomy with decannulation Chronic anticoagulation with some hemoptysis Septic shock Lactic acidosis Acute hypoxic respiratory failure secondary to likely bacterial pneumonia versus viral pneumonia, septic shock, lactic acidosis Plan ICU monitoring Vent weaning Trach care Scopolamine patch GI prophylaxis with Protonix As needed sedation with Dex OG feeds Maintenance IV IV Lasix per cardiology Monitor rectal bag Mitt for patient safety Home meds if possible Trend labs Appreciate subspecialist input DVT prophylaxis Full code Needs LTAC eval CC time 32 minutes Comment Review of Relevant I have reviewed the following items davina (where applicable) has been applied. Medications: Current Medications Medications (Trade) Dose Ordered Sig/Qing Route PRN Reason Start Time Stop Time Status Last Admin Dose Admin Haloperidol Lactate (Haldol Inj) 5 mg Q8HRS IVP 05/20/21 09:15 05/20/21 10:13 Justifications for Admission Other Justification LUCERO PERAZA III DO May 20, 2021 12:29
[2021-05-20 12:59] LABS: FIO2 ABG 35% VENT
[2021-05-20] MEDS: FUROSEMIDE 40 MG/4 ML VIAL. IVP SCH (14:13)
--- NOTE | 2021-05-20 15:33 | NUR ---
Sedation restated and FIO2 increased to 50%, r/t SBP 200's, RR upper 30's-40's, HR 120's, SPO2 mid 80's.
[2021-05-20] MEDS: PROPOFOL 100 ML IV PRN (19:44)
[2021-05-20] MEDS: NOREPINEPHRINE VIAL 8 MG in IV DEXTROSE 5% 250 ML IV PRN (23:15)
[2021-05-21] VITALS (27 sets, daily range): BP systolic 77–184; BP diastolic 39–87
[2021-05-21] MEDS: PROPOFOL 100 ML IV PRN ×6 (04:42→22:20)
[2021-05-21 05:37] LABS: BASO % 0 % (0-3); EOS # 0.3 x10^3/uL (0.0-0.7); EOS % 3 % (0-3); HEMATOCRIT 21.7 % (36.0-47.0); HEMOGLOBIN 7.1 g/dL (12.0-15.5); LYMPH # 1.5 x10^3/uL (1.0-4.8); LYMPH % 15 % (24-48); MEAN CORPUSCULAR HEMOGLOBIN 29 pg (25-35); MEAN CORPUSCULAR HGB CONC 33 g/dL (31-37); MEAN CORPUSCULAR VOLUME 89 fL (79-100); MONO # 0.6 x10^3/uL (0.0-1.1); MONO % 6 % (0-9); NEUT # 7.8 x10^3/uL (1.8-7.7); NEUT % 76 % (31-73); PLATELET COUNT 396 x10^3/uL (140-400); RED BLOOD COUNT 2.44 x10^6/uL (3.50-5.40); RED CELL DISTRIBUTION WIDTH 15.3 % (11.5-14.5); WHITE BLOOD COUNT 10.3 x10^3/uL (4.0-11.0)
[2021-05-21] MEDS: HALOPERIDOL LACTATE 5 MG/ML VIAL. IVP SCH (05:49)
[2021-05-21] MEDS: HEPARIN for SUB-Q USE 5,000 UNIT/ML VIAL. SQ SCH ×3 (05:50→22:12)
[2021-05-21 05:54] LABS: CALCIUM 8.1 mg/dL (8.5-10.1); CREATININE 0.6 mg/dL (0.6-1.0); POTASSIUM 3.4 mmol/L (3.5-5.1)
[2021-05-21 08:04] LABS: BASE EXCESS ABG 5 mmol/L (-3-3); HCO3 ABG 30 mmol/L (21-28); PCO2 ABG 45 mmHg (35-46); PO2 ABG 96 mmHg (65-108); SAT O2 ABG 97 % (92-99)
[2021-05-21 08:07] LABS: FIO2 ABG 50
[2021-05-21] MEDS ORDERED: POTASSIUM CHLORIDE 20 MEQ TABLET.ER. PO ONE (08:45)
[2021-05-21] MEDS ORDERED: HALOPERIDOL LACTATE 5 MG/ML VIAL. IVP PRN (08:45)
--- NOTE | 2021-05-21 08:45 | PDOC ---
PULMONARY PROGRESS NOTES DATE: 05/21/21 TIME: 08:45 Subjective Patient back on Precedex 35% FiO2 5 of PEEP Vitals Vital Signs Date Time Temp Pulse Resp B/P (MAP) Pulse Ox O2 Delivery O2 Flow Rate FiO2 05/21/21 08:18 99 23 134/70 98 Ventilator 05/21/21 07:00 100.3 100.3 05/20/21 10:45 97.0 Lungs: Other (Decreased breath sounds) Cardiovascular: S1, S2 Extremities: Other (1+) Skin: No Rashes Labs Laboratory Tests Test 05/20/21 08:00 05/21/21 05:20 05/21/21 07:45 O2 Saturation 92 % (92-99) 97 % (92-99) Arterial Blood pH 7.44 (7.35-7.45) 7.44 (7.35-7.45) Arterial Blood pCO2 at Patient Temp 43 mmHg (35-46) 45 mmHg (35-46) Arterial Blood pO2 at Patient Temp 69 mmHg (65-108) 96 mmHg (65-108) Arterial Blood HCO3 29 mmol/L (21-28) 30 mmol/L (21-28) Arterial Blood Base Excess 4 mmol/L (-3-3) 5 mmol/L (-3-3) FiO2 35% vent 50 White Blood Count 10.3 x10^3/uL (4.0-11.0) Red Blood Count 2.44 x10^6/uL (3.50-5.40) Hemoglobin 7.1 g/dL (12.0-15.5) Hematocrit 21.7 % (36.0-47.0) Mean Corpuscular Volume 89 fL (79-100) Mean Corpuscular Hemoglobin 29 pg (25-35) Mean Corpuscular Hemoglobin Concent 33 g/dL (31-37) Red Cell Distribution Width 15.3 % (11.5-14.5) Platelet Count 396 x10^3/uL (140-400) Neutrophils (%) (Auto) 76 % (31-73) Lymphocytes (%) (Auto) 15 % (24-48) Monocytes (%) (Auto) 6 % (0-9) Eosinophils (%) (Auto) 3 % (0-3) Basophils (%) (Auto) 0 % (0-3) Neutrophils # (Auto) 7.8 x10^3/uL (1.8-7.7) Lymphocytes # (Auto) 1.5 x10^3/uL (1.0-4.8) Monocytes # (Auto) 0.6 x10^3/uL (0.0-1.1) Eosinophils # (Auto) 0.3 x10^3/uL (0.0-0.7) Basophils # (Auto) 0.0 x10^3/uL (0.0-0.2) Sodium Level 140 mmol/L (136-145) Potassium Level 3.4 mmol/L (3.5-5.1) Chloride Level 105 mmol/L (98-107) Carbon Dioxide Level 29 mmol/L (21-32) Anion Gap 6 (6-14) Blood Urea Nitrogen 13 mg/dL (7-20) Creatinine 0.6 mg/dL (0.6-1.0) Estimated GFR (Cockcroft-Gault) 101.0 Glucose Level 129 mg/dL (70-99) Calcium Level 8.1 mg/dL (8.5-10.1) Laboratory Tests Test 05/21/21 05:20 05/21/21 07:45 White Blood Count 10.3 x10^3/uL (4.0-11.0) Red Blood Count 2.44 x10^6/uL (3.50-5.40) Hemoglobin 7.1 g/dL (12.0-15.5) Hematocrit 21.7 % (36.0-47.0) Mean Corpuscular Volume 89 fL (79-100) Mean Corpuscular Hemoglobin 29 pg (25-35) Mean Corpuscular Hemoglobin Concent 33 g/dL (31-37) Red Cell Distribution Width 15.3 % (11.5-14.5) Platelet Count 396 x10^3/uL (140-400) Neutrophils (%) (Auto) 76 % (31-73) Lymphocytes (%) (Auto) 15 % (24-48) Monocytes (%) (Auto) 6 % (0-9) Eosinophils (%) (Auto) 3 % (0-3) Basophils (%) (Auto) 0 % (0-3) Neutrophils # (Auto) 7.8 x10^3/uL (1.8-7.7) Lymphocytes # (Auto) 1.5 x10^3/uL (1.0-4.8) Monocytes # (Auto) 0.6 x10^3/uL (0.0-1.1) Eosinophils # (Auto) 0.3 x10^3/uL (0.0-0.7) Basophils # (Auto) 0.0 x10^3/uL (0.0-0.2) Sodium Level 140 mmol/L (136-145) Potassium Level 3.4 mmol/L (3.5-5.1) Chloride Level 105 mmol/L (98-107) Carbon Dioxide Level 29 mmol/L (21-32) Anion Gap 6 (6-14) Blood Urea Nitrogen 13 mg/dL (7-20) Creatinine 0.6 mg/dL (0.6-1.0) Estimated GFR (Cockcroft-Gault) 101.0 Glucose Level 129 mg/dL (70-99) Calcium Level 8.1 mg/dL (8.5-10.1) O2 Saturation 97 % (92-99) Arterial Blood pH 7.44 (7.35-7.45) Arterial Blood pCO2 at Patient Temp 45 mmHg (35-46) Arterial Blood pO2 at Patient Temp 96 mmHg (65-108) Arterial Blood HCO3 30 mmol/L (21-28) Arterial Blood Base Excess 5 mmol/L (-3-3) FiO2 50 Medications Active Scripts Medications Dose Route/Sig Max Daily Dose Days Date Category Dose Instructions Easy Neb Compressor Nebulizer (Nebulizer and Compressor) 1 Each Each Each MC PRN PRN 05/01/21 Rx Use with albuterol as needed every 4 hours Albuterol Sulfate Neb Soln (Albuterol Sulfate) 2.5 Mg/3 Ml Vial.neb 1 Vial NEB PRN Q4HRS PRN 30 05/01/21 Rx Levofloxacin 750 Mg Tablet 1 Tab PO DAILY 5 05/01/21 Rx Seroquel (Quetiapine Fumarate) 25 Mg Tablet 25 Mg PO BID 04/26/21 Reported Mysoline (Primidone) 50 Mg Tablet 50 Mg PO DAILY 04/26/21 Reported Escitalopram Oxalate 20 Mg Tablet 20 Mg PO DAILY 03/26/21 Reported Omeprazole 20 Mg Capsule.dr 20 Mg PO DAILY 03/26/21 Reported Eliquis (Apixaban) 5 Mg Tablet 5 Mg PO BID 03/26/21 Reported Lasix (Furosemide) 40 Mg Tablet 40 Mg PO DAILY 03/26/21 Reported Impression . 1. Acute hypoxic respiratory failure secondary to likely hypoxic respiratory arrest leading to cardiac arrest.This is her second intubation in a week, . H/o tracheostomy 2. The patient with underlying history of COVID-19 viral pneumonia in late November and early December, had a trach, decannulated.. She required another hospitalization few weeks ago with respiratory failure, but was successfully extubated. April 27, 2021 3. Status post tracheostomy followed by decannulation.. November, December, 2020 [facility] 4. CT revealed no tracheal stenosis, 05/07 5. Underlying obesity. 6. Chronic interstitial lung disease 7. History of bleeding around trach 8. Anemia 9. Left upper extremity weakness. ct head neg 10. Hypotension, possibly related to sedation 11. Hypokalemia. Page of Chest x-ray from the reviewed, diffuse infiltrates, no change Plan . Updated 05/20 Discussed with RN, although scheduled DC Precedex if possible Monitor labs As needed sedation Pulmonary hygiene Anticoagulation Monitor H&H Possible transfer to LTAC next week KASHMIR BLISS MD May 21, 2021 08:45
[2021-05-21] MEDS: CITALOPRAM 20 MG TABLET. PO SCH (09:00)
[2021-05-21] MEDS: ELECTROLYTE (ICU) PROTOCOL. MC SCH (09:00)
[2021-05-21] MEDS: QUEtiapine 25 MG TABLET. PO SCH ×2 (09:08→21:20)
[2021-05-21] MEDS: PRIMIDONE 50 MG TABLET PO SCH (09:08)
[2021-05-21] MEDS: FUROSEMIDE 40 MG/4 ML VIAL. IVP SCH ×2 (09:09→14:59)
[2021-05-21] MEDS: PANTOPRAZOLE IV PUSH 40 MG VIAL. IVP SCH (09:09)
[2021-05-21] MEDS: SCOPOLAMINE 1.5MG PATCH. TD SCH (09:11)
[2021-05-21] MEDS ORDERED: POTASSIUM BICARB 20 MEQ EFFERVESCENT TABLET. PEG ONE (09:30)
--- NOTE | 2021-05-21 12:10 | PDOC ---
PULMONARY PROGRESS NOTES DATE: 05/21/21 TIME: 12:08 Subjective Patient very anxious at times, back on Daypro van 50% FiO2 5 of PEEP Vitals Vital Signs Date Time Temp Pulse Resp B/P (MAP) Pulse Ox O2 Delivery O2 Flow Rate FiO2 05/21/21 12:01 98 22 118/54 95 Ventilator 05/21/21 07:00 100.3 100.3 05/20/21 10:45 97.0 Lungs: Other (Decreased breath sounds) Cardiovascular: S1, S2 Extremities: Other (1+) Skin: No Rashes Labs Laboratory Tests Test 05/20/21 08:00 05/21/21 05:20 05/21/21 07:45 O2 Saturation 92 % (92-99) 97 % (92-99) Arterial Blood pH 7.44 (7.35-7.45) 7.44 (7.35-7.45) Arterial Blood pCO2 at Patient Temp 43 mmHg (35-46) 45 mmHg (35-46) Arterial Blood pO2 at Patient Temp 69 mmHg (65-108) 96 mmHg (65-108) Arterial Blood HCO3 29 mmol/L (21-28) 30 mmol/L (21-28) Arterial Blood Base Excess 4 mmol/L (-3-3) 5 mmol/L (-3-3) FiO2 35% vent 50 White Blood Count 10.3 x10^3/uL (4.0-11.0) Red Blood Count 2.44 x10^6/uL (3.50-5.40) Hemoglobin 7.1 g/dL (12.0-15.5) Hematocrit 21.7 % (36.0-47.0) Mean Corpuscular Volume 89 fL (79-100) Mean Corpuscular Hemoglobin 29 pg (25-35) Mean Corpuscular Hemoglobin Concent 33 g/dL (31-37) Red Cell Distribution Width 15.3 % (11.5-14.5) Platelet Count 396 x10^3/uL (140-400) Neutrophils (%) (Auto) 76 % (31-73) Lymphocytes (%) (Auto) 15 % (24-48) Monocytes (%) (Auto) 6 % (0-9) Eosinophils (%) (Auto) 3 % (0-3) Basophils (%) (Auto) 0 % (0-3) Neutrophils # (Auto) 7.8 x10^3/uL (1.8-7.7) Lymphocytes # (Auto) 1.5 x10^3/uL (1.0-4.8) Monocytes # (Auto) 0.6 x10^3/uL (0.0-1.1) Eosinophils # (Auto) 0.3 x10^3/uL (0.0-0.7) Basophils # (Auto) 0.0 x10^3/uL (0.0-0.2) Sodium Level 140 mmol/L (136-145) Potassium Level 3.4 mmol/L (3.5-5.1) Chloride Level 105 mmol/L (98-107) Carbon Dioxide Level 29 mmol/L (21-32) Anion Gap 6 (6-14) Blood Urea Nitrogen 13 mg/dL (7-20) Creatinine 0.6 mg/dL (0.6-1.0) Estimated GFR (Cockcroft-Gault) 101.0 Glucose Level 129 mg/dL (70-99) Calcium Level 8.1 mg/dL (8.5-10.1) Laboratory Tests Test 05/21/21 05:20 05/21/21 07:45 White Blood Count 10.3 x10^3/uL (4.0-11.0) Red Blood Count 2.44 x10^6/uL (3.50-5.40) Hemoglobin 7.1 g/dL (12.0-15.5) Hematocrit 21.7 % (36.0-47.0) Mean Corpuscular Volume 89 fL (79-100) Mean Corpuscular Hemoglobin 29 pg (25-35) Mean Corpuscular Hemoglobin Concent 33 g/dL (31-37) Red Cell Distribution Width 15.3 % (11.5-14.5) Platelet Count 396 x10^3/uL (140-400) Neutrophils (%) (Auto) 76 % (31-73) Lymphocytes (%) (Auto) 15 % (24-48) Monocytes (%) (Auto) 6 % (0-9) Eosinophils (%) (Auto) 3 % (0-3) Basophils (%) (Auto) 0 % (0-3) Neutrophils # (Auto) 7.8 x10^3/uL (1.8-7.7) Lymphocytes # (Auto) 1.5 x10^3/uL (1.0-4.8) Monocytes # (Auto) 0.6 x10^3/uL (0.0-1.1) Eosinophils # (Auto) 0.3 x10^3/uL (0.0-0.7) Basophils # (Auto) 0.0 x10^3/uL (0.0-0.2) Sodium Level 140 mmol/L (136-145) Potassium Level 3.4 mmol/L (3.5-5.1) Chloride Level 105 mmol/L (98-107) Carbon Dioxide Level 29 mmol/L (21-32) Anion Gap 6 (6-14) Blood Urea Nitrogen 13 mg/dL (7-20) Creatinine 0.6 mg/dL (0.6-1.0) Estimated GFR (Cockcroft-Gault) 101.0 Glucose Level 129 mg/dL (70-99) Calcium Level 8.1 mg/dL (8.5-10.1) O2 Saturation 97 % (92-99) Arterial Blood pH 7.44 (7.35-7.45) Arterial Blood pCO2 at Patient Temp 45 mmHg (35-46) Arterial Blood pO2 at Patient Temp 96 mmHg (65-108) Arterial Blood HCO3 30 mmol/L (21-28) Arterial Blood Base Excess 5 mmol/L (-3-3) FiO2 50 Medications Active Scripts Medications Dose Route/Sig Max Daily Dose Days Date Category Dose Instructions Easy Neb Compressor Nebulizer (Nebulizer and Compressor) 1 Each Each Each PRN PRN 05/01/21 Rx Use with albuterol as needed every 4 hours Albuterol Sulfate Neb Soln (Albuterol Sulfate) 2.5 Mg/3 Ml Vial.neb 1 Vial NEB PRN Q4HRS PRN 30 05/01/21 Rx Levofloxacin 750 Mg Tablet 1 Tab PO DAILY 5 05/01/21 Rx Seroquel (Quetiapine Fumarate) 25 Mg Tablet 25 Mg PO BID 04/26/21 Reported Mysoline (Primidone) 50 Mg Tablet 50 Mg PO DAILY 04/26/21 Reported Escitalopram Oxalate 20 Mg Tablet 20 Mg PO DAILY 03/26/21 Reported Omeprazole 20 Mg Capsule.dr 20 Mg PO DAILY 03/26/21 Reported Eliquis (Apixaban) 5 Mg Tablet 5 Mg PO BID 03/26/21 Reported Lasix (Furosemide) 40 Mg Tablet 40 Mg PO DAILY 03/26/21 Reported Impression . 1. Acute hypoxic respiratory failure secondary to likely hypoxic respiratory arrest leading to cardiac arrest.This is her second intubation in a week, . H/o tracheostomy 2. The patient with underlying history of COVID-19 viral pneumonia in late November and early December, had a trach, decannulated.. She required another hospitalization few weeks ago with respiratory failure, but was successfully extubated. April 27, 2021 3. Status post tracheostomy followed by decannulation.. November, December, 2020 [facility] 4. CT revealed no tracheal stenosis, 05/07 5. Underlying obesity. 6. Chronic interstitial lung disease 7. History of bleeding around trach 8. Anemia 9. Left upper extremity weakness. ct head neg 10. Hypotension, possibly related to sedation 11. Hypokalemia. Page of Chest x-ray from the reviewed, diffuse infiltrates, no change Plan . Updated 05/21 Unable to decrease sedation, continue dipper Van Hemoglobin hematocrit noted hemoglobin 7.1 Restart home medications ABG noted PaO2 of 96 Monitor labs As needed sedation Pulmonary hygiene Anticoagulation Monitor H&H Possible transfer to LTAC this week KASHMIR BLISS MD May 21, 2021 12:10
[2021-05-21] MEDS: IV NORMAL SALINE 1000ML BAG 1,000 ML IV SCH (12:11)
--- NOTE | 2021-05-21 14:34 | PDOC ---
[employer] PROGRESS NOTE Date of Service DOS: DATE: 05/21/21 TIME: 14:32 Chief Complaint Chief Complaint Respiratory failure Status post tracheostomy Probable bacterial pneumonia Recent COVID-19 in November of last year Possible tracheal [place] CHF History of tracheostomy with decannulation Chronic anticoagulation with some hemoptysis Septic shock Lactic acidosis Acute hypoxic respiratory failure secondary to likely bacterial pneumonia versus viral pneumonia, septic shock, lactic acidosis History of Present Illness History of Present Illness 05/21/2021 agitation has been a problems, has gotten haldol x3 her seroquel was stopped, pharmacy rec restarting on propofol for control of BP and mood, has been off precedex and off versed, Patient seen and examined in the ICU She remains on the ventilator, on trach AC/20/45/35% with 5 of PEEP Satting 95% Tracheostomy intact Simon Has NG feeds SCDs in place She is sedated - opens eyes, does not really follow Vitals/I&O Vitals/I&O: Vital Signs Date Time Temp Pulse Resp B/P (MAP) Pulse Ox O2 Delivery O2 Flow Rate FiO2 05/21/21 14:23 79 20 92/50 97 Ventilator 05/21/21 12:01 99.3 99.3 05/20/21 10:45 97.0 I & O 05/20/21 05/20/21 05/21/21 15:00 23:00 07:00 Intake Total 200 ml 2047 ml 1731.00 ml Output Total 1700 ml 2576 ml 390 ml Balance -1500 ml -529 ml 1341.00 ml Physical Exam General: Other (Remains on a ventilator) Heart: Regular rate Lungs: Other (Decreased breath sounds) Abdomen: Normal bowel sounds Extremities: No clubbing, No cyanosis Skin: No significant lesion Labs Labs: Laboratory Tests Test 05/21/21 05:20 05/21/21 07:45 White Blood Count 10.3 x10^3/uL (4.0-11.0) Red Blood Count 2.44 x10^6/uL (3.50-5.40) Hemoglobin 7.1 g/dL (12.0-15.5) Hematocrit 21.7 % (36.0-47.0) Mean Corpuscular Volume 89 fL (79-100) Mean Corpuscular Hemoglobin 29 pg (25-35) Mean Corpuscular Hemoglobin Concent 33 g/dL (31-37) Red Cell Distribution Width 15.3 % (11.5-14.5) Platelet Count 396 x10^3/uL (140-400) Neutrophils (%) (Auto) 76 % (31-73) Lymphocytes (%) (Auto) 15 % (24-48) Monocytes (%) (Auto) 6 % (0-9) Eosinophils (%) (Auto) 3 % (0-3) Basophils (%) (Auto) 0 % (0-3) Neutrophils # (Auto) 7.8 x10^3/uL (1.8-7.7) Lymphocytes # (Auto) 1.5 x10^3/uL (1.0-4.8) Monocytes # (Auto) 0.6 x10^3/uL (0.0-1.1) Eosinophils # (Auto) 0.3 x10^3/uL (0.0-0.7) Basophils # (Auto) 0.0 x10^3/uL (0.0-0.2) Sodium Level 140 mmol/L (136-145) Potassium Level 3.4 mmol/L (3.5-5.1) Chloride Level 105 mmol/L (98-107) Carbon Dioxide Level 29 mmol/L (21-32) Anion Gap 6 (6-14) Blood Urea Nitrogen 13 mg/dL (7-20) Creatinine 0.6 mg/dL (0.6-1.0) Estimated GFR (Cockcroft-Gault) 101.0 Glucose Level 129 mg/dL (70-99) Calcium Level 8.1 mg/dL (8.5-10.1) O2 Saturation 97 % (92-99) Arterial Blood pH 7.44 (7.35-7.45) Arterial Blood pCO2 at Patient Temp 45 mmHg (35-46) Arterial Blood pO2 at Patient Temp 96 mmHg (65-108) Arterial Blood HCO3 30 mmol/L (21-28) Arterial Blood Base Excess 5 mmol/L (-3-3) FiO2 50 Assessment and Plan Assessmemt and Plan Problems Medical Problems: (1) Cardiac arrest Status: Acute (2) Hypokalemia Status: Acute (3) Lactic acidosis Status: Acute (4) Pneumonia Status: Acute (5) Respiratory failure, acute Status: Acute (6) Septic shock Status: Acute Comment Review of Relevant I have reviewed the following items davina (where applicable) has been applied. Medications: Current Medications Medications (Trade) Dose Ordered Sig/Qing Route PRN Reason Start Time Stop Time Status Last Admin Dose Admin Potassium Chloride (Klor-Con) 40 meq 1X ONCE PO 05/21/21 08:45 05/21/21 08:46 DC 05/21/21 09:08 Quetiapine Fumarate (SEROquel) 25 mg BID PO 05/21/21 09:00 05/21/21 09:08 Potassium Bicarbonate (Potassium Effervescent Tablet) 40 meq 1X ONCE PEG 05/21/21 09:30 05/21/21 09:31 DC 05/21/21 09:30 Sodium Chloride 1,000 ml @ 75 mls/hr [id number] IV 05/21/21 12:15 05/21/21 12:11 Justifications for Admission Other Justification RAMESH BARDALES MD May 21, 2021 14:34
[2021-05-21] MEDS: fentaNYL HIGH DOSE PCA 55 ML IV PRN (14:57)
--- NOTE | 2021-05-21 15:15 | NUR ---
SS following up with discharge planning. SS reviewed pt chart and discussed with pt RN. Pt is currently on the vent at 50%. COVID19 negative. Pt on Fentanyl and Propofol. Tube feeds. Trach in place. Full Code. Referrals sent for LTACH on 05/15/2021. [facility] continuing to state that pt needs to be weaned off of drips. Pt accepted at [facility], ; fax [phone], pending new insurance information. Per pt's family pt's will change insurance to [employer] on 05/22/2021. Currently awaiting family to provide new policy information. SS contacted family today and spoke with daughter, Mignon, . Mignon reported that she cannot provide new insurance information at this time because there has been a delay in its approval. She reported that she had to submit some income statements from last month and is currently awaiting approval and the new policy number and insurance card. Per family pt's [employer] will term today. Pt's RN and [facility] notified. SS will continue to follow for discharge planning.
--- NOTE | 2021-05-21 15:16 | PDOC ---
PROGRESS NOTES Date of Service DATE: 05/21/21 TIME: 15:14 Subjective Subjective Patient seen and examined Objective Objective Vital Signs Date Time Temp Pulse Resp B/P (MAP) Pulse Ox O2 Delivery O2 Flow Rate FiO2 05/21/21 14:57 97 97.0 05/21/21 14:23 79 20 92/50 Ventilator 05/21/21 12:01 99.3 99.3 Intake and Output 05/21/21 07:00 Intake Total 3978.00 ml Output Total 4666 ml Balance -688.00 ml IV Total 2131.00 ml Tube Feeding 1647 ml Blood Product IV Normal Saline Flush 200 ml Output Urine Total 4666 ml Gastric Drainage Total 0 ml Physical Exam Abdomen: Normal bowel sounds Heart: Regular rate General: Other (Intubated.) Lungs: Other (Decreased breath sounds) Assessment Assessment Problems Medical Problems: (1) Cardiac arrest Status: Acute (2) Hypokalemia Status: Acute (3) Lactic acidosis Status: Acute (4) Pneumonia Status: Acute (5) Respiratory failure, acute Status: Acute (6) Septic shock Status: Acute 1. Out of hospital acute cardiopulmonary arrest. Significant downtime. The patient remains on a ventilator. Rhythm stable. Continue supportive treatment and antibiotics. 2. Respiratory failure. Redo of tracheostomy. Followed by the pulmonary service. 2. Recent treatment with Eliquis. I can find no history of atrial fibrillation or other indications for chronic anticoagulation. Holding Eliquis. Monitoring lab. H&H today of 7.1 and 21.7. 3. Septic shock. Continue on antibiotics. Pressors as needed. Slow improvement. 4. Hypokalemia. Morning potassium level of 3.4 with a creatinine of 0.7. C ontinue supplementation and monitoring. Comment Review of Relevant I have reviewed the following items davina (where applicable) has been applied. Labs Laboratory Tests Test 05/20/21 08:00 05/21/21 05:20 05/21/21 07:45 O2 Saturation 92 % (92-99) 97 % (92-99) Arterial Blood pH 7.44 (7.35-7.45) 7.44 (7.35-7.45) Arterial Blood pCO2 at Patient Temp 43 mmHg (35-46) 45 mmHg (35-46) Arterial Blood pO2 at Patient Temp 69 mmHg (65-108) 96 mmHg (65-108) Arterial Blood HCO3 29 mmol/L (21-28) 30 mmol/L (21-28) Arterial Blood Base Excess 4 mmol/L (-3-3) 5 mmol/L (-3-3) FiO2 35% vent 50 White Blood Count 10.3 x10^3/uL (4.0-11.0) Red Blood Count 2.44 x10^6/uL (3.50-5.40) Hemoglobin 7.1 g/dL (12.0-15.5) Hematocrit 21.7 % (36.0-47.0) Mean Corpuscular Volume 89 fL (79-100) Mean Corpuscular Hemoglobin 29 pg (25-35) Mean Corpuscular Hemoglobin Concent 33 g/dL (31-37) Red Cell Distribution Width 15.3 % (11.5-14.5) Platelet Count 396 x10^3/uL (140-400) Neutrophils (%) (Auto) 76 % (31-73) Lymphocytes (%) (Auto) 15 % (24-48) Monocytes (%) (Auto) 6 % (0-9) Eosinophils (%) (Auto) 3 % (0-3) Basophils (%) (Auto) 0 % (0-3) Neutrophils # (Auto) 7.8 x10^3/uL (1.8-7.7) Lymphocytes # (Auto) 1.5 x10^3/uL (1.0-4.8) Monocytes # (Auto) 0.6 x10^3/uL (0.0-1.1) Eosinophils # (Auto) 0.3 x10^3/uL (0.0-0.7) Basophils # (Auto) 0.0 x10^3/uL (0.0-0.2) Sodium Level 140 mmol/L (136-145) Potassium Level 3.4 mmol/L (3.5-5.1) Chloride Level 105 mmol/L (98-107) Carbon Dioxide Level 29 mmol/L (21-32) Anion Gap 6 (6-14) Blood Urea Nitrogen 13 mg/dL (7-20) Creatinine 0.6 mg/dL (0.6-1.0) Estimated GFR (Cockcroft-Gault) 101.0 Glucose Level 129 mg/dL (70-99) Calcium Level 8.1 mg/dL (8.5-10.1) Laboratory Tests Test 05/21/21 05:20 05/21/21 07:45 White Blood Count 10.3 x10^3/uL (4.0-11.0) Red Blood Count 2.44 x10^6/uL (3.50-5.40) Hemoglobin 7.1 g/dL (12.0-15.5) Hematocrit 21.7 % (36.0-47.0) Mean Corpuscular Volume 89 fL (79-100) Mean Corpuscular Hemoglobin 29 pg (25-35) Mean Corpuscular Hemoglobin Concent 33 g/dL (31-37) Red Cell Distribution Width 15.3 % (11.5-14.5) Platelet Count 396 x10^3/uL (140-400) Neutrophils (%) (Auto) 76 % (31-73) Lymphocytes (%) (Auto) 15 % (24-48) Monocytes (%) (Auto) 6 % (0-9) Eosinophils (%) (Auto) 3 % (0-3) Basophils (%) (Auto) 0 % (0-3) Neutrophils # (Auto) 7.8 x10^3/uL (1.8-7.7) Lymphocytes # (Auto) 1.5 x10^3/uL (1.0-4.8) Monocytes # (Auto) 0.6 x10^3/uL (0.0-1.1) Eosinophils # (Auto) 0.3 x10^3/uL (0.0-0.7) Basophils # (Auto) 0.0 x10^3/uL (0.0-0.2) Sodium Level 140 mmol/L (136-145) Potassium Level 3.4 mmol/L (3.5-5.1) Chloride Level 105 mmol/L (98-107) Carbon Dioxide Level 29 mmol/L (21-32) Anion Gap 6 (6-14) Blood Urea Nitrogen 13 mg/dL (7-20) Creatinine 0.6 mg/dL (0.6-1.0) Estimated GFR (Cockcroft-Gault) 101.0 Glucose Level 129 mg/dL (70-99) Calcium Level 8.1 mg/dL (8.5-10.1) O2 Saturation 97 % (92-99) Arterial Blood pH 7.44 (7.35-7.45) Arterial Blood pCO2 at Patient Temp 45 mmHg (35-46) Arterial Blood pO2 at Patient Temp 96 mmHg (65-108) Arterial Blood HCO3 30 mmol/L (21-28) Arterial Blood Base Excess 5 mmol/L (-3-3) FiO2 50 Microbiology 05/18/21 Aerobic Culture - Preliminary, Resulted 05/03/21 Blood Culture - Final, Complete NO GROWTH AFTER 5 DAYS Medications Current Medications Propofol 100 ml @ As Directed STK-MED ONCE IV ; Start 05/03/21 at 10:43; Stop 05/03/21 at 10:43; Status DC Norepinephrine Bitartrate 8 mg/ Dextrose 258 ml @ 19.35 mls/ hr 1X ONCE IV Last administered on 05/03/21at 11:20; Start 05/03/21 at 11:15; Stop 05/04/21 at 00:34; Status DC Propofol (Diprivan) 200 mg TITRATE ONCE IV ; Start 05/03/21 at 11:45; Stop 05/03/21 at 11:46; Status UNV Propofol 100 ml @ 3 mls/hr CONT PRN IV PER PROTOCOL Last administered on 05/03/21at 10:50; Start 05/03/21 at 11:45; Stop 05/03/21 at 12:49; Status DC Cefepime HCl (Maxipime) 2 gm 1X ONCE IVP Last administered on 05/03/21at 11:45; Start 05/03/21 at 11:45; Stop 05/03/21 at 11:46; Status DC Vancomycin HCl 1.5 gm/Sodium Chloride 500 ml @ 250 mls/hr 1X ONCE IV ; Start 05/03/21 at 11:45; Stop 05/03/21 at 13:44; Status UNV Sodium Chloride 1,000 ml @ 1,000 mls/hr 1X ONCE IV Last administered on 05/03/21at 10:50; Start 05/03/21 at 11:45; Stop 05/03/21 at 12:44; Status DC Sodium Chloride 1,000 ml @ 1,000 mls/hr 1X ONCE IV Last administered on 05/03/21at 11:00; Start 05/03/21 at 11:45; Stop 05/03/21 at 12:44; Status DC Sodium Chloride 1,000 ml @ 250 mls/hr Q4H IV Last administered on 05/04/21at 03:45; Start 05/03/21 at 11:45; Stop 05/04/21 at 11:44; Status DC Vancomycin HCl 2 gm/Sodium Chloride 500 ml @ 250 mls/hr 1X ONCE IV Last administered on 05/03/21at 12:00; Start 05/03/21 at 12:00; Stop 05/03/21 at 13:59; Status DC Potassium Bicarbonate (Potassium Effervescent Tablet) 40 meq 1X ONCE NG Last administered on 05/03/21at 15:01; Start 05/03/21 at 12:00; Stop 05/03/21 at 12:01; Status DC Potassium Chloride/Water 100 ml @ 100 mls/hr Q1H IV ; Start 05/03/21 at 12:00; Stop 05/03/21 at 12:04; Status DC Apixaban (Eliquis) 5 mg BID PO ; Start 05/03/21 at 21:00; Stop 05/03/21 at 15:54; Status DC Primidone (Mysoline) 50 mg DAILY PO Last administered on 05/21/21at 09:08; Start 05/04/21 at 09:00 Quetiapine Fumarate (SEROquel) 25 mg BID PO Last administered on 05/19/21at 20:49; Start 05/03/21 at 21:00; Stop 05/20/21 at 09:09; Status DC Citalopram Hydrobromide (CeleXA) 20 mg DAILY PO Last administered on 05/21/21at 09:00; Start 05/04/21 at 09:00 Pantoprazole Sodium (PROTONIX VIAL for IV PUSH) 40 mg DAILYAC IVP Last administered on 05/21/21at 09:09; Start 05/04/21 at 07:30 Potassium Chloride/Water 100 ml @ 100 mls/hr Q1H IV Last administered on 05/03/21at 13:43; Start 05/03/21 at 12:00; Stop 05/03/21 at 13:59; Status DC Magnesium Sulfate 50 ml @ 25 mls/hr 1X ONCE IV Last administered on 05/03/21at 15:00; Start 05/03/21 at 12:00; Stop 05/03/21 at 13:59; Status DC Ondansetron HCl (Zofran) 4 mg PRN Q6HRS PRN IVP NAUSEA/VOMITING; Start 05/03/21 at 12:00 Calcium Carbonate/ Glycine (Tums) 500 mg PRN Q3HRS PRN PO HEARTBURN / GAS; Start 05/03/21 at 12:00 Info (Icu Electrolyte Protocol) 1 ea DAILY MC Last administered on 05/21/21at 09:00; Start 05/04/21 at 09:00 Sodium Chloride (Normal Saline Flush) 3 ml QSHIFT PRN IV AFTER MEDS AND BLOOD DRAWS; Start 05/03/21 at 12:00 Potassium Chloride/Water 100 ml @ 100 mls/hr Q1H IV Last administered on 05/03/21at 15:57; Start 05/03/21 at 14:00; Stop 05/03/21 at 15:59; Status DC Fentanyl Citrate 30 ml @ 2.5 mls/hr CONT PRN IV SEE PROTOCOL Last administered on 05/08/21at 06:54; Start 05/03/21 at 12:45; Stop 05/15/21 at 07:41; Status DC Midazolam HCl 100 ml @ 1 mls/hr CONT PRN IV SEE PROTOCOL Last administered on 05/18/21at 08:14; Start 05/03/21 at 12:45 Propofol 100 ml @ 3 mls/hr CONT PRN IV PER PROTOCOL Last administered on 05/21/21at 14:58; Start 05/03/21 at 12:45 Vecuronium [place] (Norcuron Bolus) 6 mg PRN 1X PRN IV VENT INDUCTION; Start 05/03/21 at 12:45; Stop 05/04/21 at 12:44; Status DC Dexmedetomidine HCl 400 mcg/ Sodium Chloride 100 ml @ 7,500 mls/hr CONT PRN IV PER PROTOCOL Last administered on 05/09/21at 10:42; Start 05/03/21 at 12:45; Stop 05/09/21 at 10:49; Status DC Iohexol (Omnipaque 350 Mg/ml) 100 ml 1X ONCE IV Last administered on 05/03/21at 12:58; Start 05/03/21 at 13:00; Stop 05/03/21 at 13:01; Status DC Info (CONTRAST GIVEN -- Rx MONITORING) 1 each PRN DAILY PRN MC SEE COMMENTS; Start 05/03/21 at 13:00; Stop 05/05/21 at 12:59; Status DC Piperacillin Sod/ Tazobactam Sod (Zosyn Per Pharmacy) 1 each PRN DAILY PRN MC SEE COMMENTS; Start 05/03/21 at 15:15; Stop 05/03/21 at 15:07; Status DC Vancomycin HCl (Vanco Per Pharmacy) 1 each PRN DAILY PRN MC SEE COMMENTS Last administered on 05/11/21at 09:00; Start 05/03/21 at 15:15; Stop 05/11/21 at 1 4:19; Status DC Cefepime HCl (Maxipime) 1 gm Q8HRS IVP ; Start 05/03/21 at 15:30; Status Cancel Insulin Human Lispro (HumaLOG) 0-7 UNITS TIDWMEALS SQ ; Start 05/03/21 at 17:00; Stop 05/07/21 at 07:52; Status DC Dextrose (Dextrose 50%-Water Syringe) 12.5 gm PRN Q15MIN PRN IV SEE COMMENTS; Start 05/03/21 at 15:15; Stop 05/07/21 at 07:53; Status DC Cefepime HCl (Maxipime) 1 gm Q8HRS IVP Last administered on 05/14/21at 14:23; Start 05/03/21 at 22:00; Stop 05/14/21 at 14:49; Status DC Methylprednisolone Sodium Succinate (SOLU-Medrol 125MG VIAL) 125 mg 1X ONCE IV Last administered on 05/03/21at 15:56; Start 05/03/21 at 15:30; Stop 05/03/21 at 15:31; Status DC Vancomycin HCl 1 gm/Sodium Chloride 250 ml @ 250 mls/hr Q12H IV Last administered on 05/10/21at 00:06; Start 05/04/21 at 00:00; Stop 05/10/21 at 10:46; Status DC Vancomycin HCl (Vancomycin Trough Level) 1 each 1X ONCE MC ; Start 05/04/21 at 23:30; Stop 05/04/21 at 23:31; Status DC Potassium Chloride/Water 100 ml @ 100 mls/hr Q1H IV Last administered on 05/04/21at 09:38; Start 05/04/21 at 08:00; Stop 05/04/21 at 09:59; Status DC Calcium Chloride (Calcium Chloride) 1,000 mg STK-MED ONCE .ROUTE ; Start 05/03/21 at 11:00; Stop 05/04/21 at 12:23; Status DC Sodium Bicarbonate (Sodium Bicarb Adult 8.4% Syr) 50 meq STK-MED ONCE .ROUTE ; Start 05/03/21 at 11:00; Stop 05/04/21 at 12:23; Status DC Epinephrine HCl (EPINEPHrine SYRINGE) 3 mg STK-MED ONCE .ROUTE ; Start 05/03/21 at 11:00; Stop 05/04/21 at 12:23; Status DC Potassium Chloride/Water 100 ml @ 100 mls/hr Q1H IV Last administered on 05/05/21at 12:19; Start 05/05/21 at 09:00; Stop 05/05/21 at 12:59; Status DC Potassium Chloride/Water 100 ml @ 100 mls/hr Q1H IV Last administered on 05/06/21at 11:05; Start 05/06/21 at 10:00; Stop 05/06/21 at 11:59; Status DC Insulin Human Lispro (HumaLOG) 0-7 UNITS Q6HRS SQ ; Start 05/07/21 at 12:00; Stop 05/10/21 at 11:00; Status DC Dextrose (Dextrose 50%-Water Syringe) 12.5 gm PRN Q15MIN PRN IV SEE COMMENTS; Start 05/07/21 at 08:00 Norepinephrine Bitartrate 8 mg/ Dextrose 258 ml @ 21.672 mls/ hr CONT PRN IV PER PROTOCOL Last administered on 05/20/21at 23:15; Start 05/07/21 at 11:30 Vancomycin HCl (Vancomycin Trough Level) 1 each 1X ONCE MC ; Start 05/09/21 at 11:30; Stop 05/09/21 at 11:31; Status DC Metoprolol Tartrate (Lopressor Vial) 5 mg PRN Q6HRS PRN IVP HYPERTENSION Last administered on 05/14/21at 16:51; Start 05/09/21 at 03:45 Scopolamine (Transderm-Scop) 1 patch Q3DAYS TD Last administered on 05/21/21at 09:11; Start 05/09/21 at 10:00 Dexmedetomidine HCl 400 mcg/ Sodium Chloride 100 ml @ 7,500 mls/hr CONT PRN IV PER PROTOCOL; Start 05/09/21 at 11:00; Stop 05/09/21 at 10:56; Status DC Dexmedetomidine HCl 400 mcg/ Sodium Chloride 100 ml @ 5 mls/hr CONT PRN IV PER PROTOCOL Last administered on 05/15/21at 21:21; Start 05/09/21 at 11:00; Stop 05/16/21 at 10:39; Status DC Potassium Bicarbonate (Potassium Effervescent Tablet) 20 meq 1X ONCE PEG Last administered on 05/09/21at 13:56; Start 05/09/21 at 14:00; Stop 05/09/21 at 14:01; Status DC Potassium Bicarbonate (Potassium Effervescent Tablet) 40 meq 1X ONCE PEG Last administered on 05/10/21at 10:23; Start 05/10/21 at 10:00; Stop 05/10/21 at 10:01; Status DC Vancomycin HCl 1.25 gm/Sodium Chloride 250 ml @ 167 mls/hr Q12H IV Last administered on 05/11/21at 11:34; Start 05/10/21 at 12:00; Stop 05/11/21 at 14:19; Status DC Potassium Bicarbonate (Potassium Effervescent Tablet) 40 meq 1X ONCE PO Last administered on 05/11/21at 10:55; Start 05/11/21 at 08:30; Stop 05/11/21 at 08:31; Status DC Midazolam HCl (Versed) 5 mg 1X ONCE IVP Last administered on 05/11/21at 11:34; Start 05/11/21 at 11:30; Stop 05/11/21 at 11:32; Status DC Potassium Chloride/Water 100 ml @ 100 mls/hr Q1H IV Last administered on 05/13/21at 10:23; Start 05/13/21 at 08:30; Stop 05/13/21 at 10:29; Status DC Fentanyl Citrate (Fentanyl 2ml Vial) 25 mcg PRN Q5MIN PRN IVP MILD PAIN 1-3; Start 05/15/21 at 06:00; Stop 05/15/21 at 20:00; Status DC Fentanyl Citrate (Fentanyl 2ml Vial) 50 mcg PRN Q5MIN PRN IVP MODERATE PAIN 4- 6; Start 05/15/21 at 06:00; Stop 05/15/21 at 20:00; Status DC Morphine Sulfate (Morphine Sulfate) 1 mg PRN Q10MIN PRN IVP SEVERE PAIN 7-10; Start 05/15/21 at 06:00; Stop 05/15/21 at 20:00; Status DC Ringer's Solution 1,000 ml @ 30 mls/hr Q24H IV Last administered on 05/15/21at 03:50; Start 05/15/21 at 06:00; Stop 05/15/21 at 17:59; Status DC Hydromorphone HCl (Dilaudid) 0.5 mg PRN Q10MIN PRN IVP SEVERE PAIN 7-10, 2nd CHOICE; Start 05/15/21 at 06:00; Stop 05/15/21 at 20:00; Status DC Prochlorperazine Edisylate (Compazine) 5 mg PACU PRN PRN IVP NAUSEA, MRX1; Start 05/15/21 at 06:00; Stop 05/15/21 at 20:00; Status DC Fentanyl Citrate 55 ml @ 1 mls/hr CONT PRN PRN IV SEE PROTOCOL Last administered on 05/21/21at 14:57; Start 05/15/21 at 07:45 Perflutren Protein Type A Microsphe (Optison) 0.66 mg 1X ONCE IV ; Start 05/15/21 at 07:45; Stop 05/15/21 at 07:46; Status DC Midazolam HCl (Versed) 5 mg 1X ONCE IVP Last administered on 05/15/21at 09:20; Start 05/15/21 at 09:15; Stop 05/15/21 at 09:16; Status DC Bupivacaine HCl/ Epinephrine Bitart (Sensorcain-Epi 0.5% Kit) 30 ml STK-MED ONCE INJ Last administered on 05/15/21at 09:49; Start 05/15/21 at 09:49; Stop 05/15/21 at 10:12; Status DC Cellulose (Surgicel Fibrillar 1x2) 1 each STK-MED ONCE TP Last administered on 05/15/21at 09:49; Start 05/15/21 at 09:49; Stop 05/15/21 at 10:12; Status DC Cellulose (Surgicel Hemostat 2x14) 1 each STK-MED ONCE SURGSITE Last administered on 05/15/21at 09:49; Start 05/15/21 at 09:49; Stop 05/15/21 at 10:12; Status DC Perflutren Protein Type A Microsphe (Optison) 0.66 mg STK-MED ONCE IV ; Start 05/15/21 at 07:00; Stop 05/15/21 at 13:03; Status DC Midazolam HCl (Versed) 5 mg STK-MED ONCE .ROUTE ; Start 05/11/21 at 11:32; Stop 05/15/21 at 13:06; Status DC Perflutren Protein Type A Microsphe (Optison) 0.66 mg STK-MED ONCE IV ; Start 05/15/21 at 06:29; Stop 05/15/21 at 13:44; Status DC Rocuronium [place] (Zemuron) 100 mg STK-MED ONCE .ROUTE ; Start 05/15/21 at 08:39; Stop 05/15/21 at 13:48; Status DC Fentanyl Citrate (Fentanyl 2ml Vial) 100 mcg STK-MED ONCE .ROUTE ; Start 05/15/21 at 08:39; Stop 05/15/21 at 13:48; Status DC Cellulose (Surgicel Fibrillar 1x2) 1 each STK-MED ONCE .ROUTE ; Start 05/15/21 at 08:42; Stop 05/15/21 at 13:48; Status DC Bupivacaine HCl/ Epinephrine Bitart (Sensorcain-Epi 0.5% Kit) 30 ml STK-MED ONCE .ROUTE ; Start 05/15/21 at 08:43; Stop 05/15/21 at 13:48; Status DC Epinephrine HCl (Adrenalin) 1 mg STK-MED ONCE .ROUTE ; Start 05/15/21 at 08:43; Stop 05/15/21 at 13:48; Status DC Midazolam HCl (Versed) 5 mg STK-MED ONCE .ROUTE ; Start 05/15/21 at 09:09; Stop 05/15/21 at 13:49; Status DC Rocuronium [place] (Zemuron) 50 mg STK-MED ONCE .ROUTE ; Start 05/15/21 at 09:49; Stop 05/15/21 at 13:49; Status DC Cellulose (Surgicel Hemostat 2x14) 1 each STK-MED ONCE .ROUTE ; Start 05/15/21 at 10:00; Stop 05/15/21 at 13:50; Status DC Perflutren Protein Type A Microsphe (Optison) 0.66 mg 1X ONCE IV Last admi nistered on 05/15/21at 15:03; Start 05/15/21 at 15:15; Stop 05/15/21 at 15:16; Status DC Heparin Sodium (Porcine) (Heparin Sodium) 5,000 unit Q8HRS SQ Last administered on 05/21/21at 14:59; Start 05/16/21 at 14:00 Potassium Chloride/Water 100 ml @ 100 mls/hr Q1H IV Last administered on 05/17/21at 14:09; Start 05/17/21 at 11:00; Stop 05/17/21 at 13:59; Status DC Potassium Bicarbonate (Potassium Effervescent Tablet) 40 meq 1X ONCE PO Last administered on 05/18/21at 08:06; Start 05/18/21 at 07:45; Stop 05/18/21 at 07:46; Status DC Ringer's Solution 1,000 ml @ 1,000 mls/hr 1X ONCE IV Last administered on 05/19/21at 08:42; Start 05/19/21 at 08:45; Stop 05/19/21 at 09:44; Status DC Ringer's Solution 1,000 ml @ 75 mls/hr [id number] IV Last administered on 04/23 at 19:38; Start 05/19/21 at 11:30; Stop 05/21/21 at 12:08; Status DC Dexmedetomidine HCl 400 mcg/ Sodium Chloride 100 ml @ 5.85 mls/hr CONT PRN IV PER PROTOCOL Last administered on 05/20/21at 19:17; Start 05/19/21 at 11:30 Sodium Chloride 500 ml @ 500 mls/hr 1X PRN PRN IV SEE COMMENTS Last administered on 05/19/21at 19:50; Start 05/19/21 at 11:30 Atropine Sulfate (ATROPINE 0.5mg SYRINGE) 0.5 mg PRN Q5MIN PRN IV SEE COMMENTS; Start 05/19/21 at 11:30 Haloperidol Lactate (Haldol Inj) 5 mg Q8HRS IVP Last administered on 05/21/21at 05:49; Start 05/20/21 at 09:15; Stop 05/21/21 at 08:47; Status DC Furosemide (Lasix) 40 mg [id number] IVP Last administered on 05/21/21at 14:59; Start 05/20/21 at 14:00 Potassium Chloride (Klor-Con) 40 meq 1X ONCE PO Last administered on 05/21/21at 09:08; Start 05/21/21 at 08:45; Stop 05/21/21 at 08:46; Status DC Haloperidol Lactate (Haldol Inj) 5 mg PRN Q8HRS PRN IVP agitation; Start 05/21/21 at 08:45 Quetiapine Fumarate (SEROquel) 25 mg BID PO Last administered on 05/21/21at 09 :08; Start 05/21/21 at 09:00 Potassium Bicarbonate (Potassium Effervescent Tablet) 40 meq 1X ONCE PEG Last administered on 05/21/21at 09:30; Start 05/21/21 at 09:30; Stop 05/21/21 at 09:31; Status DC Sodium Chloride 1,000 ml @ 75 mls/hr [id number] IV Last administered on 05/21/21at 12:11; Start 05/21/21 at 12:15 Active Scripts Active Easy Neb Compressor Nebulizer (Nebulizer and Compressor) 1 Each Each Each MC PRN PRN Use with albuterol as needed every 4 hours Albuterol Sulfate Neb Soln (Albuterol Sulfate) 2.5 Mg/3 Ml Vial.neb 1 Vial NEB PRN Q4HRS PRN 30 Days Levofloxacin 750 Mg Tablet 1 Tab PO DAILY 5 Days Reported Seroquel (Quetiapine Fumarate) 25 Mg Tablet 25 Mg PO BID Mysoline (Primidone) 50 Mg Tablet 50 Mg PO DAILY Escitalopram Oxalate 20 Mg Tablet 20 Mg PO DAILY Omeprazole 20 Mg Capsule.dr 20 Mg PO DAILY Eliquis (Apixaban) 5 Mg Tablet 5 Mg PO BID Lasix (Furosemide) 40 Mg Tablet 40 Mg PO DAILY Vitals/I & O Vital Sign - Last 24 Hours 05/20/21 05/20/21 05/20/21 05/20/21 15:26 15:52 16:00 17:12 Temp 97.8 97.8 Pulse 51 52 Resp 26 20 B/P (MAP) 82/47 83/46 Pulse Ox 96 91 99 99 O2 Delivery Ventilator Ventilator Ventilator 05/20/21 05/20/21 05/20/21 05/20/21 18:09 19:00 20:00 20:00 Temp 98.7 98.7 Pulse 56 56 54 Resp 20 20 20 B/P (MAP) 91/50 94/50 94/50 Pulse Ox 99 98 97 O2 Delivery Ventilator Ventilator Mechanical Ventilator Ventilator 05/20/21 05/20/21 05/20/21 05/20/21 20:00 21:00 22:00 22:30 Pulse 52 47 Resp 20 20 B/P (MAP) 94/49 70/39 69/38 Pulse Ox 97 97 97 O2 Delivery Ventilator Ventilator Ventilator 05/20/21 05/20/21 05/20/21 05/20/21 23:00 23:00 23:30 23:45 Pulse 49 Resp 20 B/P (MAP) 69/36 84/46 180/82 Pulse Ox 97 99 O2 Delivery Ventilator Ventilator 05/21/21 05/21/21 05/21/21 05/21/21 00:00 00:15 00:30 00:45 Temp 97.9 97.9 Pulse 72 Resp 20 B/P (MAP) 184/78 169/76 152/69 152/74 Pulse Ox 98 O2 Delivery Ventilator 05/21/21 05/21/21 05/21/21 05/21/21 01:00 02:00 02:00 03:00 Pulse 104 108 108 Resp 25 27 28 B/P (MAP) 152/74 183/83 179/87 Pulse Ox 96 95 95 96 O2 Delivery Ventilator Ventilator Ventilator Ventilator 05/21/21 05/21/21 05/21/21 05/21/21 04:00 05:00 05:00 06:00 Temp 99.1 99.1 Pulse 104 106 98 Resp 33 33 23 B/P (MAP) 168/74 176/82 151/65 Pulse Ox 98 94 98 96 O2 Delivery Ventilator Ventilator Ventilator Ventilator 05/21/21 05/21/21 05/21/21 05/21/21 07:00 07:45 08:17 08:18 Temp 100.3 100.3 Pulse 100 99 Resp 25 23 B/P (MAP) 141/65 134/70 Pulse Ox 98 98 98 O2 Delivery Ventilator Ventilator Mechanical Ventilator Ventilator 05/21/21 05/21/21 05/21/21 05/21/21 09:00 10:00 11:13 11:35 Pulse 100 102 100 Resp 20 25 25 B/P (MAP) 124/70 150/80 144/67 Pulse Ox 97 96 94 95 O2 Delivery Ventilator Ventilator Ventilator Ventilator 05/21/21 05/21/21 05/21/21 05/21/21 12:01 13:09 13:25 14:23 Temp 99.3 99.3 Pulse 98 79 79 Resp 22 20 20 B/P (MAP) 118/54 91/39 92/50 Pulse Ox 95 97 97 97 O2 Delivery Ventilator Ventilator Ventilator Ventilator 05/21/21 14:57 Pulse Ox 97 O2 Flow Rate 97.0 Intake and Output 05/20/21 05/20/21 05/21/21 15:00 23:00 07:00 Intake Total 200 ml 2047 ml 1731.00 ml Output Total 1700 ml 2576 ml 390 ml Balance -1500 ml -529 ml 1341.00 ml Justifications for Admission Other Justification YUDITH RANGEL MD May 21, 2021 15:16
[2021-05-22] VITALS (28 sets, daily range): BP systolic 79–181; BP diastolic 38–83
[2021-05-22] MEDS: IV NORMAL SALINE 1000ML BAG 1,000 ML IV SCH ×2 (01:41→14:41)
[2021-05-22] MEDS: PROPOFOL 100 ML IV PRN ×3 (02:48→09:51)
[2021-05-22] MEDS: HEPARIN for SUB-Q USE 5,000 UNIT/ML VIAL. SQ SCH ×3 (05:48→22:00)
[2021-05-22 06:15] LABS: HEMATOCRIT 19.4 % (36.0-47.0); RED BLOOD COUNT 2.17 x10^6/uL (3.50-5.40); RED CELL DISTRIBUTION WIDTH 15.4 % (11.5-14.5); WHITE BLOOD COUNT 6.5 x10^3/uL (4.0-11.0)
[2021-05-22 06:33] LABS: ALBUMIN/GLOBULIN RATIO 0.5 (1.0-1.7); CALCIUM 7.9 mg/dL (8.5-10.1); CREATININE 0.7 mg/dL (0.6-1.0); GFR 84.5; POTASSIUM 3.3 mmol/L (3.5-5.1); TOTAL BILIRUBIN 0.3 mg/dL (0.2-1.0); TOTAL PROTEIN 5.7 g/dL (6.4-8.2)
[2021-05-22 06:59] LABS: HEMOGLOBIN 6.5 g/dL (12.0-15.5)
[2021-05-22 07:55] LABS: BASE EXCESS ABG 7 mmol/L (-3-3); HCO3 ABG 31 mmol/L (21-28); PCO2 ABG 45 mmHg (35-46); PO2 ABG 83 mmHg (65-108); SAT O2 ABG 95 % (92-99)
[2021-05-22 07:57] LABS: FIO2 ABG 50
[2021-05-22] MEDS ORDERED: POTASSIUM CHLORIDE 20 MEQ TABLET.ER. PO SCH (08:30)
[2021-05-22] MEDS ORDERED: POTASSIUM BICARB 20 MEQ EFFERVESCENT TABLET. PEG ONE (08:30)
[2021-05-22] MEDS ORDERED: POTASSIUM CHLORIDE 20 MEQ TABLET.ER. PO ONE (08:30)
[2021-05-22] MEDS ORDERED: MAGNESIUM SULFATE 2GM 50 ML IV ONE (08:30)
[2021-05-22] MEDS: ELECTROLYTE (ICU) PROTOCOL. MC SCH (09:00)
[2021-05-22] MEDS: PRIMIDONE 50 MG TABLET PO SCH (09:36)
[2021-05-22] MEDS: CITALOPRAM 20 MG TABLET. PO SCH (09:36)
[2021-05-22] MEDS: QUEtiapine 25 MG TABLET. PO SCH ×2 (09:36→21:00)
[2021-05-22] MEDS: FUROSEMIDE 40 MG/4 ML VIAL. IVP SCH ×2 (09:37→15:54)
[2021-05-22] MEDS: PANTOPRAZOLE IV PUSH 40 MG VIAL. IVP SCH (09:37)
[2021-05-22] MEDS ORDERED: POTASSIUM BICARB 20 MEQ EFFERVESCENT TABLET. PO ONE (10:30)
[2021-05-22 13:30] LABS: HEMATOCRIT 22.5 % (36.0-47.0); HEMOGLOBIN 7.3 g/dL (12.0-15.5)
--- NOTE | 2021-05-22 15:06 | PDOC ---
[employer] PROGRESS NOTE Date of Service DOS: DATE: 05/22/21 TIME: 15:06 Chief Complaint Chief Complaint Respiratory failure Status post tracheostomy Probable bacterial pneumonia Recent COVID-19 in November of last year Possible tracheal [place] CHF History of tracheostomy with decannulation Chronic anticoagulation with some hemoptysis Septic shock Lactic acidosis Acute hypoxic respiratory failure secondary to likely bacterial pneumonia versus viral pneumonia, septic shock, lactic acidosis History of Present Illness History of Present Illness 05/22/2021 better and more calm today on seroquel bp better off haldol OK, still propfolol Patient seen and examined in the ICU She remains on the ventilator, on trach AC/20/45/35% with 5 of PEEP Satting 95% Tracheostomy intact Simon Has NG feeds SCDs in place She is sedated - opens eyes, does not really follow Vitals/I&O Vitals/I&O: Vital Signs Date Time Temp Pulse Resp B/P (MAP) Pulse Ox O2 Delivery O2 Flow Rate FiO2 05/22/21 14:00 78 20 91/45 96 Ventilator 05/22/21 12:31 89.4 89.4 05/21/21 15:27 97.0 I & O 05/21/21 05/21/21 05/22/21 15:00 23:00 07:00 Intake Total 200 ml 902 ml 2061.09 ml Output Total 2000 ml 3495 ml 167 ml Balance -1800 ml -2593 ml 1894.09 ml Physical Exam General: Other (Intubated.) Heart: Regular rate Lungs: Other (Decreased breath sounds) Abdomen: Normal bowel sounds Extremities: No clubbing, No cyanosis Skin: No significant lesion Labs Labs: Laboratory Tests Test 05/22/21 05:55 05/22/21 07:40 05/22/21 13:20 White Blood Count 6.5 x10^3/uL (4.0-11.0) Red Blood Count 2.17 x10^6/uL (3.50-5.40) Hemoglobin 6.5 g/dL (12.0-15.5) 7.3 g/dL (12.0-15.5) Hematocrit 19.4 % (36.0-47.0) 22.5 % (36.0-47.0) Mean Corpuscular Volume 89 fL (79-100) Mean Corpuscular Hemoglobin 30 pg (25-35) Mean Corpuscular Hemoglobin Concent 34 g/dL (31-37) 32 g/dL (31-37) Red Cell Distribution Width 15.4 % (11.5-14.5) Platelet Count 354 x10^3/uL (140-400) Sodium Level 143 mmol/L (136-145) Potassium Level 3.3 mmol/L (3.5-5.1) Chloride Level 105 mmol/L (98-107) Carbon Dioxide Level 32 mmol/L (21-32) Anion Gap 6 (6-14) Blood Urea Nitrogen 13 mg/dL (7-20) Creatinine 0.7 mg/dL (0.6-1.0) Estimated GFR (Cockcroft-Gault) 84.5 BUN/Creatinine Ratio 19 (6-20) Glucose Level 101 mg/dL (70-99) Calcium Level 7.9 mg/dL (8.5-10.1) Total Bilirubin 0.3 mg/dL (0.2-1.0) Aspartate Amino Transf (AST/SGOT) 24 U/L (15-37) Alanine Aminotransferase (ALT/SGPT) 38 U/L (14-59) Alkaline Phosphatase 177 U/L (46-116) Total Protein 5.7 g/dL (6.4-8.2) Albumin 2.0 g/dL (3.4-5.0) Albumin/Globulin Ratio 0.5 (1.0-1.7) O2 Saturation 95 % (92-99) Arterial Blood pH 7.46 (7.35-7.45) Arterial Blood pCO2 at Patient Temp 45 mmHg (35-46) Arterial Blood pO2 at Patient Temp 83 mmHg (65-108) Arterial Blood HCO3 31 mmol/L (21-28) Arterial Blood Base Excess 7 mmol/L (-3-3) FiO2 50 Assessment and Plan Assessmemt and Plan Problems Medical Problems: (1) Cardiac arrest Status: Acute (2) Hypokalemia Status: Acute (3) Lactic acidosis Status: Acute (4) Pneumonia Status: Acute (5) Respiratory failure, acute Status: Acute (6) Septic shock Status: Acute Comment Review of Relevant I have reviewed the following items davina (where applicable) has been applied. Medications: Current Medications Medications (Trade) Dose Ordered Sig/Qing Route PRN Reason Start Time Stop Time Status Last Admin Dose Admin Magnesium Sulfate 50 ml @ 25 mls/hr 1X ONCE IV 05/22/21 08:30 05/22/21 10:29 DC 05/22/21 09:37 Potassium Bicarbonate (Potassium Effervescent Tablet) 40 meq 1X ONCE PEG 05/22/21 08:30 05/22/21 08:36 DC 05/22/21 09:36 Potassium Bicarbonate (Potassium Effervescent Tablet) 40 meq 1X ONCE PO 05/22/21 10:30 05/22/21 10:31 DC 05/22/21 10:41 Justifications for Admission Other Justification RAMESH BARDALES MD May 22, 2021 15:06
--- NOTE | 2021-05-22 15:30 | NUR ---
SS following up with discharge planning. SS reviewed pt chart and discussed with pt RN. Pt is currently on the vent at 50%. COVID19 negative. Pt on Fentanyl and Propofol. Tube feeds. Trach in place. Full Code. Referrals sent for LTACH on 05/15/2021. Pt accepted at [facility], ; fax [phone], pending new insurance information. Per pt's family pt's will change insurance to [employer] on 05/22/2021. Currently awaiting family to provide new policy information. Per daughterMignon, , she cannot provide new insurance information at this time because there has been a delay in its approval. She reported that she had to submit some income statements from last month and is currently awaiting approval and the new policy number and insurance card. Per family pt's [employer] has termed. [employer] unable to proceed with insurance approval until new insurance information has been received. SS will continue to follow for discharge planning.
--- NOTE | 2021-05-22 15:43 | PDOC ---
PULMONARY PROGRESS NOTES DATE: 05/22/21 TIME: 15:42 Subjective Discussed with RN and RT currently sedated 50% FiO2 5 of PEEP Vitals Vital Signs Date Time Temp Pulse Resp B/P (MAP) Pulse Ox O2 Delivery O2 Flow Rate FiO2 05/22/21 15:35 96 Ventilator 05/22/21 15:16 78 20 130/83 05/22/21 12:31 89.4 89.4 05/21/21 15:27 97.0 Lungs: Other (Decreased breath sounds) Cardiovascular: S1, S2 Extremities: Other (1+) Skin: No Rashes Labs Laboratory Tests Test 05/21/21 05:20 05/21/21 07:45 05/22/21 05:55 05/22/21 07:40 White Blood Count 10.3 x10^3/uL (4.0-11.0) 6.5 x10^3/uL (4.0-11.0) Red Blood Count 2.44 x10^6/uL (3.50-5.40) 2.17 x10^6/uL (3.50-5.40) Hemoglobin 7.1 g/dL (12.0-15.5) 6.5 g/dL (12.0-15.5) Hematocrit 21.7 % (36.0-47.0) 19.4 % (36.0-47.0) Mean Corpuscular Volume 89 fL (79-100) 89 fL (79-100) Mean Corpuscular Hemoglobin 29 pg (25-35) 30 pg (25-35) Mean Corpuscular Hemoglobin Concent 33 g/dL (31-37) 34 g/dL (31-37) Red Cell Distribution Width 15.3 % (11.5-14.5) 15.4 % (11.5-14.5) Platelet Count 396 x10^3/uL (140-400) 354 x10^3/uL (140-400) Neutrophils (%) (Auto) 76 % (31-73) Lymphocytes (%) (Auto) 15 % (24-48) Monocytes (%) (Auto) 6 % (0-9) Eosinophils (%) (Auto) 3 % (0-3) Basophils (%) (Auto) 0 % (0-3) Neutrophils # (Auto) 7.8 x10^3/uL (1.8-7.7) Lymphocytes # (Auto) 1.5 x10^3/uL (1.0-4.8) Monocytes # (Auto) 0.6 x10^3/uL (0.0-1.1) Eosinophils # (Auto) 0.3 x10^3/uL (0.0-0.7) Basophils # (Auto) 0.0 x10^3/uL (0.0-0.2) Sodium Level 140 mmol/L (136-145) 143 mmol/L (136-145) Potassium Level 3.4 mmol/L (3.5-5.1) 3.3 mmol/L (3.5-5.1) Chloride Level 105 mmol/L (98-107) 105 mmol/L (98-107) Carbon Dioxide Level 29 mmol/L (21-32) 32 mmol/L (21-32) Anion Gap 6 (6-14) 6 (6-14) Blood Urea Nitrogen 13 mg/dL (7-20) 13 mg/dL (7-20) Creatinine 0.6 mg/dL (0.6-1.0) 0.7 mg/dL (0.6-1.0) Estimated GFR (Cockcroft-Gault) 101.0 84.5 Glucose Level 129 mg/dL (70-99) 101 mg/dL (70-99) Calcium Level 8.1 mg/dL (8.5-10.1) 7.9 mg/dL (8.5-10.1) O2 Saturation 97 % (92-99) 95 % (92-99) Arterial Blood pH 7.44 (7.35-7.45) 7.46 (7.35-7.45) Arterial Blood pCO2 at Patient Temp 45 mmHg (35-46) 45 mmHg (35-46) Arterial Blood pO2 at Patient Temp 96 mmHg (65-108) 83 mmHg (65-108) Arterial Blood HCO3 30 mmol/L (21-28) 31 mmol/L (21-28) Arterial Blood Base Excess 5 mmol/L (-3-3) 7 mmol/L (-3-3) FiO2 50 50 BUN/Creatinine Ratio 19 (6-20) Total Bilirubin 0.3 mg/dL (0.2-1.0) Aspartate Amino Transf (AST/SGOT) 24 U/L (15-37) Alanine Aminotransferase (ALT/SGPT) 38 U/L (14-59) Alkaline Phosphatase 177 U/L (46-116) Total Protein 5.7 g/dL (6.4-8.2) Albumin 2.0 g/dL (3.4-5.0) Albumin/Globulin Ratio 0.5 (1.0-1.7) Test 05/22/21 13:20 Hemoglobin 7.3 g/dL (12.0-15.5) Hematocrit 22.5 % (36.0-47.0) Mean Corpuscular Hemoglobin Concent 32 g/dL (31-37) Laboratory Tests Test 05/22/21 05:55 05/22/21 07:40 05/22/21 13:20 White Blood Count 6.5 x10^3/uL (4.0-11.0) Red Blood Count 2.17 x10^6/uL (3.50-5.40) Hemoglobin 6.5 g/dL (12.0-15.5) 7.3 g/dL (12.0-15.5) Hematocrit 19.4 % (36.0-47.0) 22.5 % (36.0-47.0) Mean Corpuscular Volume 89 fL (79-100) Mean Corpuscular Hemoglobin 30 pg (25-35) Mean Corpuscular Hemoglobin Concent 34 g/dL (31-37) 32 g/dL (31-37) Red Cell Distribution Width 15.4 % (11.5-14.5) Platelet Count 354 x10^3/uL (140-400) Sodium Level 143 mmol/L (136-145) Potassium Level 3.3 mmol/L (3.5-5.1) Chloride Level 105 mmol/L (98-107) Carbon Dioxide Level 32 mmol/L (21-32) Anion Gap 6 (6-14) Blood Urea Nitrogen 13 mg/dL (7-20) Creatinine 0.7 mg/dL (0.6-1.0) Estimated GFR (Cockcroft-Gault) 84.5 BUN/Creatinine Ratio 19 (6-20) Glucose Level 101 mg/dL (70-99) Calcium Level 7.9 mg/dL (8.5-10.1) Total Bilirubin 0.3 mg/dL (0.2-1.0) Aspartate Amino Transf (AST/SGOT) 24 U/L (15-37) Alanine Aminotransferase (ALT/SGPT) 38 U/L (14-59) Alkaline Phosphatase 177 U/L (46-116) Total Protein 5.7 g/dL (6.4-8.2) Albumin 2.0 g/dL (3.4-5.0) Albumin/Globulin Ratio 0.5 (1.0-1.7) O2 Saturation 95 % (92-99) Arterial Blood pH 7.46 (7.35-7.45) Arterial Blood pCO2 at Patient Temp 45 mmHg (35-46) Arterial Blood pO2 at Patient Temp 83 mmHg (65-108) Arterial Blood HCO3 31 mmol/L (21-28) Arterial Blood Base Excess 7 mmol/L (-3-3) FiO2 50 Medications Active Scripts Medications Dose Route/Sig Max Daily Dose Days Date Category Dose Instructions Easy Neb Compressor Nebulizer (Nebulizer and Compressor) 1 Each Each Each MC PRN PRN 05/01/21 Rx Use with albuterol as needed every 4 hours Albuterol Sulfate Neb Soln (Albuterol Sulfate) 2.5 Mg/3 Ml Vial.neb 1 Vial NEB PRN Q4HRS PRN 30 05/01/21 Rx Levofloxacin 750 Mg Tablet 1 Tab PO DAILY 5 05/01/21 Rx Seroquel (Quetiapine Fumarate) 25 Mg Tablet 25 Mg PO BID 04/26/21 Reported Mysoline (Primidone) 50 Mg Tablet 50 Mg PO DAILY 04/26/21 Reported Escitalopram Oxalate 20 Mg Tablet 20 Mg PO DAILY 03/26/21 Reported Omeprazole 20 Mg Capsule.dr 20 Mg PO DAILY 03/26/21 Reported Eliquis (Apixaban) 5 Mg Tablet 5 Mg PO BID 03/26/21 Reported Lasix (Furosemide) 40 Mg Tablet 40 Mg PO DAILY 03/26/21 Reported Impression . 1. Acute hypoxic respiratory failure secondary to likely hypoxic respiratory arrest leading to cardiac arrest.This is her second intubation in a week, . H/o tracheostomy 2. The patient with underlying history of COVID-19 viral pneumonia in late November and early December, had a trach, decannulated.. She required another hospitalization few weeks ago with respiratory failure, but was successfully extubated. April 27, 2021 3. Status post tracheostomy followed by decannulation.. November,December, [facility] 4. CT revealed no tracheal stenosis, 05/07 5. Underlying obesity. 6. Chronic interstitial lung disease 7. History of bleeding around trach 8. Anemia 9. Left upper extremity weakness. ct head neg 10. Hypotension, possibly related to sedation 11. Hypokalemia. Page of Chest x-ray from the reviewed, diffuse infiltrates, no change Plan . Updated 2/1 Pressure support throughout the day as tolerated Hemoglobin hematocrit noted hemoglobin 7.1 Restart home medications Monitor labs As needed sedation Pulmonary hygiene Anticoagulation Monitor H&H Possible transfer to LTAC this week, discussed with social work specialist KASHMIR BLISS MD May 22, 2021 15:43
--- NOTE | 2021-05-22 15:52 | PDOC ---
PROGRESS NOTES Date of Service DATE: 05/22/21 TIME: 15:48 Subjective Subjective Patient seen and examined Objective Objective Vital Signs Date Time Temp Pulse Resp B/P (MAP) Pulse Ox O2 Delivery O2 Flow Rate FiO2 05/22/21 15:35 96 Ventilator 05/22/21 15:16 78 20 130/83 05/22/21 12:31 89.4 89.4 05/21/21 15:27 97.0 Intake and Output0 05/22/21 07:00 Intake Total 3163.09 ml Output Total 5662 ml Balance -2498.91 ml IV Total 1309.09 ml Tube Feeding 1654 ml Other 200 ml Output Urine Total 5662 ml Gastric Drainage Total 0 ml # Bowel Movements 1 Physical Exam Abdomen: Normal bowel sounds Heart: Regular rate General: Other (Remains on a ventilator) Lungs: Other (Mildly decreased breath sounds) Assessment Assessment Problems Medical Problems: (1) Cardiac arrest Status: Acute (2) Hypokalemia Status: Acute (3) Lactic acidosis Status: Acute (4) Pneumonia Status: Acute (5) Respiratory failure, acute Status: Acute (6) Septic shock Status: Acute 1. Out of hospital acute cardiopulmonary arrest. Significant downtime. The patient remains on a ventilator. Rhythm stable. Continue supportive treatment and antibiotics. Possible placement later this week. 2. Respiratory failure. Redo of tracheostomy. Followed by the pulmonary service. 3. Recent treatment with Eliquis. I can find no history of atrial fibrillation or other indications for chronic anticoagulation. Holding Eliquis. Monitoring lab. 4. Anemia. Initial H&H of 6.5 and 19.4 this morning followed by draws of 7.3 and 22.5. Continuing to monitor. 5. Hypokalemia. Morning potassium level of 3.3, magnesium 1.9 and creatinine is 0.7. Being replaced. Comment Review of Relevant I have reviewed the following items davina (where applicable) has been applied. Labs Laboratory Tests Test 05/21/21 05:20 05/21/21 07:45 05/22/21 05:55 05/22/21 07:40 White Blood Count 10.3 x10^3/uL (4.0-11.0) 6.5 x10^3/uL (4.0-11.0) Red Blood Count 2.44 x10^6/uL (3.50-5.40) 2.17 x10^6/uL (3.50-5.40) Hemoglobin 7.1 g/dL (12.0-15.5) 6.5 g/dL (12.0-15.5) Hematocrit 21.7 % (36.0-47.0) 19.4 % (36.0-47.0) Mean Corpuscular Volume 89 fL (79-100) 89 fL (79-100) Mean Corpuscular Hemoglobin 29 pg (25-35) 30 pg (25-35) Mean Corpuscular Hemoglobin Concent 33 g/dL (31-37) 34 g/dL (31-37) Red Cell Distribution Width 15.3 % (11.5-14.5) 15.4 % (11.5-14.5) Platelet Count 396 x10^3/uL (140-400) 354 x10^3/uL (140-400) Neutrophils (%) (Auto) 76 % (31-73) Lymphocytes (%) (Auto) 15 % (24-48) Monocytes (%) (Auto) 6 % (0-9) Eosinophils (%) (Auto) 3 % (0-3) Basophils (%) (Auto) 0 % (0-3) Neutrophils # (Auto) 7.8 x10^3/uL (1.8-7.7) Lymphocytes # (Auto) 1.5 x10^3/uL (1.0-4.8) Monocytes # (Auto) 0.6 x10^3/uL (0.0-1.1) Eosinophils # (Auto) 0.3 x10^3/uL (0.0-0.7) Basophils # (Auto) 0.0 x10^3/uL (0.0-0.2) Sodium Level 140 mmol/L (136-145) 143 mmol/L (136-145) Potassium Level 3.4 mmol/L (3.5-5.1) 3.3 mmol/L (3.5-5.1) Chloride Level 105 mmol/L (98-107) 105 mmol/L (98-107) Carbon Dioxide Level 29 mmol/L (21-32) 32 mmol/L (21-32) Anion Gap 6 (6-14) 6 (6-14) Blood Urea Nitrogen 13 mg/dL (7-20) 13 mg/dL (7-20) Creatinine 0.6 mg/dL (0.6-1.0) 0.7 mg/dL (0.6-1.0) Estimated GFR (Cockcroft-Gault) 101.0 84.5 Glucose Level 129 mg/dL (70-99) 101 mg/dL (70-99) Calcium Level 8.1 mg/dL (8.5-10.1) 7.9 mg/dL (8.5-10.1) O2 Saturation 97 % (92-99) 95 % (92-99) Arterial Blood pH 7.44 (7.35-7.45) 7.46 (7.35-7.45) Arterial Blood pCO2 at Patient Temp 45 mmHg (35-46) 45 mmHg (35-46) Arterial Blood pO2 at Patient Temp 96 mmHg (65-108) 83 mmHg (65-108) Arterial Blood HCO3 30 mmol/L (21-28) 31 mmol/L (21-28) Arterial Blood Base Excess 5 mmol/L (-3-3) 7 mmol/L (-3-3) FiO2 50 50 BUN/Creatinine Ratio 19 (6-20) Total Bilirubin 0.3 mg/dL (0.2-1.0) Aspartate Amino Transf (AST/SGOT) 24 U/L (15-37) Alanine Aminotransferase (ALT/SGPT) 38 U/L (14-59) Alkaline Phosphatase 177 U/L (46-116) Total Protein 5.7 g/dL (6.4-8.2) Albumin 2.0 g/dL (3.4-5.0) Albumin/Globulin Ratio 0.5 (1.0-1.7) Test 05/22/21 13:20 Hemoglobin 7.3 g/dL (12.0-15.5) Hematocrit 22.5 % (36.0-47.0) Mean Corpuscular Hemoglobin Concent 32 g/dL (31-37) Laboratory Tests Test 05/22/21 05:55 05/22/21 07:40 05/22/21 13:20 White Blood Count 6.5 x10^3/uL (4.0-11.0) Red Blood Count 2.17 x10^6/uL (3.50-5.40) Hemoglobin 6.5 g/dL (12.0-15.5) 7.3 g/dL (12.0-15.5) Hematocrit 19.4 % (36.0-47.0) 22.5 % (36.0-47.0) Mean Corpuscular Volume 89 fL (79-100) Mean Corpuscular Hemoglobin 30 pg (25-35) Mean Corpuscular Hemoglobin Concent 34 g/dL (31-37) 32 g/dL (31-37) Red Cell Distribution Width 15.4 % (11.5-14.5) Platelet Count 354 x10^3/uL (140-400) Sodium Level 143 mmol/L (136-145) Potassium Level 3.3 mmol/L (3.5-5.1) Chloride Level 105 mmol/L (98-107) Carbon Dioxide Level 32 mmol/L (21-32) Anion Gap 6 (6-14) Blood Urea Nitrogen 13 mg/dL (7-20) Creatinine 0.7 mg/dL (0.6-1.0) Estimated GFR (Cockcroft-Gault) 84.5 BUN/Creatinine Ratio 19 (6-20) Glucose Level 101 mg/dL (70-99) Calcium Level 7.9 mg/dL (8.5-10.1) Total Bilirubin 0.3 mg/dL (0.2-1.0) Aspartate Amino Transf (AST/SGOT) 24 U/L (15-37) Alanine Aminotransferase (ALT/SGPT) 38 U/L (14-59) Alkaline Phosphatase 177 U/L (46-116) Total Protein 5.7 g/dL (6.4-8.2) Albumin 2.0 g/dL (3.4-5.0) Albumin/Globulin Ratio 0.5 (1.0-1.7) O2 Saturation 95 % (92-99) Arterial Blood pH 7.46 (7.35-7.45) Arterial Blood pCO2 at Patient Temp 45 mmHg (35-46) Arterial Blood pO2 at Patient Temp 83 mmHg (65-108) Arterial Blood HCO3 31 mmol/L (21-28) Arterial Blood Base Excess 7 mmol/L (-3-3) FiO2 50 Microbiology 05/18/21 Aerobic Culture - Final, Complete 05/03/21 Blood Culture - Final, Complete NO GROWTH AFTER 5 DAYS Medications Current Medications Propofol 100 ml @ As Directed STK-MED ONCE IV ; Start 05/03/21 at 10:43; Stop 05/03/21 at 10:43; Status DC Norepinephrine Bitartrate 8 mg/ Dextrose 258 ml @ 19.35 mls/ hr 1X ONCE IV Last administered on 05/03/21at 11:20; Start 05/03/21 at 11:15; Stop 05/04/21 at 00:34; Status DC Propofol (Diprivan) 200 mg TITRATE ONCE IV ; Start 05/03/21 at 11:45; Stop 05/03/21 at 11:46; Status UNV Propofol 100 ml @ 3 mls/hr CONT PRN IV PER PROTOCOL Last administered on 05/03/21at 10:50; Start 05/03/21 at 11:45; Stop 05/03/21 at 12:49; Status DC Cefepime HCl (Maxipime) 2 gm 1X ONCE IVP Last administered on 05/03/21at 11:45; Start 05/03/21 at 11:45; Stop 05/03/21 at 11:46; Status DC Vancomycin HCl 1.5 gm/Sodium Chloride 500 ml @ 250 mls/hr 1X ONCE IV ; Start 05/03/21 at 11:45; Stop 05/03/21 at 13:44; Status UNV Sodium Chloride 1,000 ml @ 1,000 mls/hr 1X ONCE IV Last administered on 05/03/21at 10:50; Start 05/03/21 at 11:45; Stop 05/03/21 at 12:44; Status DC Sodium Chloride 1,000 ml @ 1,000 mls/hr 1X ONCE IV Last administered on 05/03/21at 11:00; Start 05/03/21 at 11:45; Stop 05/03/21 at 12:44; Status DC Sodium Chloride 1,000 ml @ 250 mls/hr Q4H IV Last administered on 05/04/21at 03:45; Start 05/03/21 at 11:45; Stop 05/04/21 at 11:44; Status DC Vancomycin HCl 2 gm/Sodium Chloride 500 ml @ 250 mls/hr 1X ONCE IV Last administered on 05/03/21at 12:00; Start 05/03/21 at 12:00; Stop 05/03/21 at 13 :59; Status DC Potassium Bicarbonate (Potassium Effervescent Tablet) 40 meq 1X ONCE NG Last administered on 05/03/21at 15:01; Start 05/03/21 at 12:00; Stop 05/03/21 at 12:01; Status DC Potassium Chloride/Water 100 ml @ 100 mls/hr Q1H IV ; Start 05/03/21 at 12:00; Stop 05/03/21 at 12:04; Status DC Apixaban (Eliquis) 5 mg BID PO ; Start 05/03/21 at 21:00; Stop 05/03/21 at 15:54; Status DC Primidone (Mysoline) 50 mg DAILY PO Last administered on 05/22/21at 09:36; Start 05/04/21 at 09:00 Quetiapine Fumarate (SEROquel) 25 mg BID PO Last administered on 05/19/21at 20:49; Start 05/03/21 at 21:00; Stop 05/20/21 at 09:09; Status DC Citalopram Hydrobromide (CeleXA) 20 mg DAILY PO Last administered on 05/22/21at 09:36; Start 05/04/21 at 09:00 Pantoprazole Sodium (PROTONIX VIAL for IV PUSH) 40 mg DAILYAC IVP Last administered on 05/22/21at 09:37; Start 05/04/21 at 07:30 Potassium Chloride/Water 100 ml @ 100 mls/hr Q1H IV Last administered on 05/03/21at 13:43; Start 05/03/21 at 12:00; Stop 05/03/21 at 13:59; Status DC Magnesium Sulfate 50 ml @ 25 mls/hr 1X ONCE IV Last administered on 05/03/21at 15:00; Start 05/03/21 at 12:00; Stop 05/03/21 at 13:59; Status DC Ondansetron HCl (Zofran) 4 mg PRN Q6HRS PRN IVP NAUSEA/VOMITING; Start 05/03/21 at 12:00 Calcium Carbonate/ Glycine (Tums) 500 mg PRN Q3HRS PRN PO HEARTBURN / GAS; Start 05/03/21 at 12:00 Info (Icu Electrolyte Protocol) 1 ea DAILY MC Last administered on 05/22/21at 09:00; Start 05/04/21 at 09:00 Sodium Chloride (Normal Saline Flush) 3 ml QSHIFT PRN IV AFTER MEDS AND BLOOD DRAWS; Start 05/03/21 at 12:00 Potassium Chloride/Water 100 ml @ 100 mls/hr Q1H IV Last administered on 05/03/21at 15:57; Start 05/03/21 at 14:00; Stop 05/03/21 at 15:59; Status DC Fentanyl Citrate 30 ml @ 2.5 mls/hr CONT PRN IV SEE PROTOCOL Last administered on 05/08/21at 06:54; Start 05/03/21 at 12:45; Stop 05/15/21 at 07:41; Status DC Midazolam HCl 100 ml @ 1 mls/hr CONT PRN IV SEE PROTOCOL Last administered on 05/18/21at 08:14; Start 05/03/21 at 12:45 Propofol 100 ml @ 3 mls/hr CONT PRN IV PER PROTOCOL Last administered on 05/22/21at 09:51; Start 05/03/21 at 12:45 Vecuronium [place] (Norcuron Bolus) 6 mg PRN 1X PRN IV VENT INDUCTION; Start 05/03/21 at 12:45; Stop 05/04/21 at 12:44; Status DC Dexmedetomidine HCl 400 mcg/ Sodium Chloride 100 ml @ 7,500 mls/hr CONT PRN IV PER PROTOCOL Last administered on 05/09/21at 10:42; Start 05/03/21 at 12:45; Stop 05/09/21 at 10:49; Status DC Iohexol (Omnipaque 350 Mg/ml) 100 ml 1X ONCE IV Last administered on 05/03/21at 12:58; Start 05/03/21 at 13:00; Stop 05/03/21 at 13:01; Status DC Info (CONTRAST GIVEN -- Rx MONITORING) 1 each PRN DAILY PRN MC SEE COMMENTS; Start 05/03/21 at 13:00; Stop 05/05/21 at 12:59; Status DC Piperacillin Sod/ Tazobactam Sod (Zosyn Per Pharmacy) 1 each PRN DAILY PRN MC SEE COMMENTS; Start 05/03/21 at 15:15; Stop 05/03/21 at 15:07; Status DC Vancomycin HCl (Vanco Per Pharmacy) 1 each PRN DAILY PRN MC SEE COMMENTS Last administered on 05/11/21at 09:00; Start 05/03/21 at 15:15; Stop 05/11/21 at 14:19; Status DC Cefepime HCl (Maxipime) 1 gm Q8HRS IVP ; Start 05/03/21 at 15:30; Status Cancel Insulin Human Lispro (HumaLOG) 0-7 UNITS TIDWMEALS SQ ; Start 05/03/21 at 17:00; Stop 05/07/21 at 07:52; Status DC Dextrose (Dextrose 50%-Water Syringe) 12.5 gm PRN Q15MIN PRN IV SEE COMMENTS; Start 05/03/21 at 15:15; Stop 05/07/21 at 07:53; Status DC Cefepime HCl (Maxipime) 1 gm Q8HRS IVP Last administered on 05/14/21at 14:23; Start 05/03/21 at 22:00; Stop 05/14/21 at 14:49; Status DC Methylprednisolone Sodium Succinate (SOLU-Medrol 125MG VIAL) 125 mg 1X ONCE IV Last administered on 05/03/21at 15:56; Start 05/03/21 at 15:30; Stop 05/03/21 at 15:31; Status DC Vancomycin HCl 1 gm/Sodium Chloride 250 ml @ 250 mls/hr Q12H IV Last administered on 05/10/21at 00:06; Start 05/04/21 at 00:00; Stop 05/10/21 at 10:46; Status DC Vancomycin HCl (Vancomycin Trough Level) 1 each 1X ONCE MC ; Start 05/04/21 at 23:30; Stop 05/04/21 at 23:31; Status DC Potassium Chloride/Water 100 ml @ 100 mls/hr Q1H IV Last administered on 05/04/21at 09:38; Start 05/04/21 at 08:00; Stop 05/04/21 at 09:59; Status DC Calcium Chloride (Calcium Chloride) 1,000 mg STK-MED ONCE .ROUTE ; Start 05/03/21 at 11:00; Stop 05/04/21 at 12:23; Status DC Sodium Bicarbonate (Sodium Bicarb Adult 8.4% Syr) 50 meq STK-MED ONCE .ROUTE ; Start 05/03/21 at 11:00; Stop 05/04/21 at 12:23; Status DC Epinephrine HCl (EPINEPHrine SYRINGE) 3 mg STK-MED ONCE .ROUTE ; Start 05/03/21 at 11:00; Stop 05/04/21 at 12:23; Status DC Potassium Chloride/Water 100 ml @ 100 mls/hr Q1H IV Last administered on 05/05/21at 12:19; Start 05/05/21 at 09:00; Stop 05/05/21 at 12:59; Status DC Potassium Chloride/Water 100 ml @ 100 mls/hr Q1H IV Last administered on 05/06/21at 11:05; Start 05/06/21 at 10:00; Stop 05/06/21 at 11:59; Status DC Insulin Human Lispro (HumaLOG) 0-7 UNITS Q6HRS SQ ; Start 05/07/21 at 12:00; Stop 05/10/21 at 11:00; Status DC Dextrose (Dextrose 50%-Water Syringe) 12.5 gm PRN Q15MIN PRN IV SEE COMMENTS; Start 05/07/21 at 08:00 Norepinephrine Bitartrate 8 mg/ Dextrose 258 ml @ 21.672 mls/ hr CONT PRN IV PER PROTOCOL Last administered on 05/20/21at 23:15; Start 05/07/21 at 11:30 Vancomycin HCl (Vancomycin Trough Level) 1 each 1X ONCE MC ; Start 05/09/21 at 11:30; Stop 05/09/21 at 11:31; Status DC Metoprolol Tartrate (Lopressor Vial) 5 mg PRN Q6HRS PRN IVP HYPERTENSION Last administered on 05/14/21at 16:51; Start 05/09/21 at 03:45 Scopolamine (Transderm-Scop) 1 patch Q3DAYS TD Last administered on 05/21/21at 09:11; Start 05/09/21 at 10:00 Dexmedetomidine HCl 400 mcg/ Sodium Chloride 100 ml @ 7,500 mls/hr CONT PRN IV PER PROTOCOL; Start 05/09/21 at 11:00; Stop 05/09/21 at 10:56; Status DC Dexmedetomidine HCl 400 mcg/ Sodium Chloride 100 ml @ 5 mls/hr CONT PRN IV PER PROTOCOL Last administered on 05/15/21at 21:21; Start 05/09/21 at 11:00; Stop 05/16/21 at 10:39; Status DC Potassium Bicarbonate (Potassium Effervescent Tablet) 20 meq 1X ONCE PEG Last administered on 05/09/21at 13:56; Start 05/09/21 at 14:00; Stop 05/09/21 at 14:01; Status DC Potassium Bicarbonate (Potassium Effervescent Tablet) 40 meq 1X ONCE PEG Last administered on 05/10/21at 10:23; Start 05/10/21 at 10:00; Stop 05/10/21 at 10:01; Status DC Vancomycin HCl 1.25 gm/Sodium Chloride 250 ml @ 167 mls/hr Q12H IV Last administered on 05/11/21at 11:34; Start 05/10/21 at 12:00; Stop 05/11/21 at 14:19; Status DC Potassium Bicarbonate (Potassium Effervescent Tablet) 40 meq 1X ONCE PO Last administered on 05/11/21at 10:55; Start 05/11/21 at 08:30; Stop 05/11/21 at 08:31; Status DC Midazolam HCl (Versed) 5 mg 1X ONCE IVP Last administered on 05/11/21at 11:34; Start 05/11/21 at 11:30; Stop 05/11/21 at 11:32; Status DC Potassium Chloride/Water 100 ml @ 100 mls/hr Q1H IV Last administered on 05/13/21at 10:23; Start 05/13/21 at 08:30; Stop 05/13/21 at 10:29; Status DC Fentanyl Citrate (Fentanyl 2ml Vial) 25 mcg PRN Q5MIN PRN IVP MILD PAIN 1-3; Start 05/15/21 at 06:00; Stop 05/15/21 at 20:00; Status DC Fentanyl Citrate (Fentanyl 2ml Vial) 50 mcg PRN Q5MIN PRN IVP MODERATE PAIN 4- 6; Start 05/15/21 at 06:00; Stop 05/15/21 at 20:00; Status DC Morphine Sulfate (Morphine Sulfate) 1 mg PRN Q10MIN PRN IVP SEVERE PAIN 7-10; Start 05/15/21 at 06:00; Stop 05/15/21 at 20:00; Status DC Ringer's Solution 1,000 ml @ 30 mls/hr Q24H IV Last administered on 05/15/21at 03:50; Start 05/15/21 at 06:00; Stop 05/15/21 at 17:59; Status DC Hydromorphone HCl (Dilaudid) 0.5 mg PRN Q10MIN PRN IVP SEVERE PAIN 7-10, 2nd CH OICE; Start 05/15/21 at 06:00; Stop 05/15/21 at 20:00; Status DC Prochlorperazine Edisylate (Compazine) 5 mg PACU PRN PRN IVP NAUSEA, MRX1; Start 05/15/21 at 06:00; Stop 05/15/21 at 20:00; Status DC Fentanyl Citrate 55 ml @ 1 mls/hr CONT PRN PRN IV SEE PROTOCOL Last administered on 05/21/21at 14:57; Start 05/15/21 at 07:45 Perflutren Protein Type A Microsphe (Optison) 0.66 mg 1X ONCE IV ; Start 05/15/21 at 07:45; Stop 05/15/21 at 07:46; Status DC Midazolam HCl (Versed) 5 mg 1X ONCE IVP Last administered on 05/15/21at 09:20; Start 05/15/21 at 09:15; Stop 05/15/21 at 09:16; Status DC Bupivacaine HCl/ Epinephrine Bitart (Sensorcain-Epi 0.5% Kit) 30 ml STK-MED ONCE INJ Last administered on 05/15/21at 09:49; Start 05/15/21 at 09:49; Stop 05/15/21 at 10:12; Status DC Cellulose (Surgicel Fibrillar 1x2) 1 each STK-MED ONCE TP Last administered on 05/15/21at 09:49; Start 05/15/21 at 09:49; Stop 05/15/21 at 10:12; Status DC Cellulose (Surgicel Hemostat 2x14) 1 each STK-MED ONCE SURGSITE Last administered on 05/15/21at 09:49; Start 05/15/21 at 09:49; Stop 05/15/21 at 10:12; Status DC Perflutren Protein Type A Microsphe (Optison) 0.66 mg STK-MED ONCE IV ; Start 05/15/21 at 07:00; Stop 05/15/21 at 13:03; Status DC Midazolam HCl (Versed) 5 mg STK-MED ONCE .ROUTE ; Start 05/11/21 at 11:32; Stop 05/15/21 at 13:06; Status DC Perflutren Protein Type A Microsphe (Optison) 0.66 mg STK-MED ONCE IV ; Start 05/15/21 at 06:29; Stop 05/15/21 at 13:44; Status DC Rocuronium [place] (Zemuron) 100 mg STK-MED ONCE .ROUTE ; Start 05/15/21 at 08:39; Stop 05/15/21 at 13:48; Status DC Fentanyl Citrate (Fentanyl 2ml Vial) 100 mcg STK-MED ONCE .ROUTE ; Start 05/15/21 at 08:39; Stop 05/15/21 at 13:48; Status DC Cellulose (Surgicel Fibrillar 1x2) 1 each STK-MED ONCE .ROUTE ; Start 05/15/21 at 08:42; Stop 05/15/21 at 13:48; Status DC Bupivacaine HCl/ Epinephrine Bitart (Sensorcain-Epi 0.5% Kit) 30 ml STK-MED ONCE .ROUTE ; Start 05/15/21 at 08:43; Stop 05/15/21 at 13:48; Status DC Epinephrine HCl (Adrenalin) 1 mg STK-MED ONCE .ROUTE ; Start 05/15/21 at 08:43; Stop 05/15/21 at 13:48; Status DC Midazolam HCl (Versed) 5 mg STK-MED ONCE .ROUTE ; Start 05/15/21 at 09:09; Stop 05/15/21 at 13:49; Status DC Rocuronium [place] (Zemuron) 50 mg STK-MED ONCE .ROUTE ; Start 05/15/21 at 09:49; Stop 05/15/21 at 13:49; Status DC Cellulose (Surgicel Hemostat 2x14) 1 each STK-MED ONCE .ROUTE ; Start 05/15/21 at 10:00; Stop 05/15/21 at 13:50; Status DC Perflutren Protein Type A Microsphe (Optison) 0.66 mg 1X ONCE IV Last administered on 05/15/21at 15:03; Start 05/15/21 at 15:15; Stop 05/15/21 at 15:16; Status DC Heparin Sodium (Porcine) (Heparin Sodium) 5,000 unit Q8HRS SQ Last administered on 05/22/21at 14:40; Start 05/16/21 at 14:00 Potassium Chloride/Water 100 ml @ 100 mls/hr Q1H IV Last administered on 05/17/21at 14:09; Start 05/17/21 at 11:00; Stop 05/17/21 at 13:59; Status DC Potassium Bicarbonate (Potassium Effervescent Tablet) 40 meq 1X ONCE PO Last administered on 05/18/21at 08:06; Start 05/18/21 at 07:45; Stop 05/18/21 at 07:46; Status DC Ringer's Solution 1,000 ml @ 1,000 mls/hr 1X ONCE IV Last administered on 05/19/21at 08:42; Start 05/19/21 at 08:45; Stop 05/19/21 at 09:44; Status DC Ringer's Solution 1,000 ml @ 75 mls/hr [id number] IV Last administered on 05/20/21at 19:38; Start 05/19/21 at 11:30; Stop 05/21/21 at 12:08; Status DC Dexmedetomidine HCl 400 mcg/ Sodium Chloride 100 ml @ 5.85 mls/hr CONT PRN IV PER PROTOCOL Last administered on 05/20/21at 19:17; Start 05/19/21 at 11:30 Sodium Chloride 500 ml @ 500 mls/hr 1X PRN PRN IV SEE COMMENTS Last administered on 05/19/21at 19:50; Start 05/19/21 at 11:30 Atropine Sulfate (ATROPINE 0.5mg SYRINGE) 0.5 mg PRN Q5MIN PRN IV SEE COMMENTS; Start 05/19/21 at 11:30 Haloperidol Lactate (Haldol Inj) 5 mg Q8HRS IVP Last administered on 05/21/21at 05:49; Start 05/20/21 at 09:15; Stop 05/21/21 at 08:47; Status DC Furosemide (Lasix) 40 mg [id number] IVP Last administered on 05/22/21at 09:37; Start 05/20/21 at 14:00 Potassium Chloride (Klor-Con) 40 meq 1X ONCE PO Last administered on 05/21/21at 09:08; Start 05/21/21 at 08:45; Stop 05/21/21 at 08:46; Status DC Haloperidol Lactate (Haldol Inj) 5 mg PRN Q8HRS PRN IVP agitation; Start 05/21/21 at 08:45 Quetiapine Fumarate (SEROquel) 25 mg BID PO Last administered on 05/22/21at 09:36; Start 05/21/21 at 09:00 Potassium Bicarbonate (Potassium Effervescent Tablet) 40 meq 1X ONCE PEG Last administered on 05/21/21at 09:30; Start 05/21/21 at 09:30; Stop 05/21/21 at 09:31; Status DC Sodium Chloride 1,000 ml @ 75 mls/hr [id number] IV Last administered on 05/22/21at 14:41; Start 05/21/21 at 12:15 Potassium Chloride (Klor-Con) 40 meq 1X ONCE PO ; Start 05/22/21 at 08:30; Stop 05/22/21 at 08:47; Status DC Potassium Chloride (Klor-Con) 40 meq Q2H PO ; Start 05/22/21 at 08:30; Stop 05/22/21 at 08:47; Status DC Magnesium Sulfate 50 ml @ 25 mls/hr 1X ONCE IV Last administered on 05/22/21at 09:37; Start 05/22/21 at 08:30; Stop 05/22/21 at 10:29; Status DC Potassium Bicarbonate (Potassium Effervescent Tablet) 40 meq 1X ONCE PEG Last administered on 05/22/21at 09:36; Start 05/22/21 at 08:30; Stop 05/22/21 at 08:36; Status DC Potassium Bicarbonate (Potassium Effervescent Tablet) 40 meq 1X ONCE PO Last administered on 05/22/21at 10:41; Start 05/22/21 at 10:30; Stop 05/22/21 at 10:31; Status DC Active Scripts Active Easy Neb Compressor Nebulizer (Nebulizer and Compressor) 1 Each Each Each MC PRN PRN Use with albuterol as needed every 4 hours Albuterol Sulfate Neb Soln (Albuterol Sulfate) 2.5 Mg/3 Ml Vial.neb 1 Vial NEB PRN Q4HRS PRN 30 Days Levofloxacin 750 Mg Tablet 1 Tab PO DAILY 5 Days Reported Seroquel (Quetiapine Fumarate) 25 Mg Tablet 25 Mg PO BID Mysoline (Primidone) 50 Mg Tablet 50 Mg PO DAILY Escitalopram Oxalate 20 Mg Tablet 20 Mg PO DAILY Omeprazole 20 Mg Capsule.dr 20 Mg PO DAILY Eliquis (Apixaban) 5 Mg Tablet 5 Mg PO BID Lasix (Furosemide) 40 Mg Tablet 40 Mg PO DAILY Vitals/I & O Vital Sign - Last 24 Hours 05/21/21 05/21/21 05/21/21 05/21/21 16:00 17:14 17:31 18:06 Temp 99.1 99.1 Pulse 97 76 66 Resp 23 20 20 B/P (MAP) 164/80 81/39 79/39 Pulse Ox 94 94 96 96 O2 Delivery Ventilator Ventilator Ventilator Ventilator 05/21/21 05/21/21 05/21/21 05/21/21 19:00 19:00 20:00 20:00 Temp 99.6 99.6 Pulse 61 62 Resp 20 20 B/P (MAP) 78/41 77/42 Pulse Ox 97 98 98 O2 Delivery Ventilator Ventilator Ventilator Mechanical Ventilator 05/21/21 05/21/21 05/21/21 05/21/21 21:00 22:00 23:00 23:00 Pulse 62 56 54 Resp 20 20 20 B/P (MAP) 78/41 91/49 93/47 Pulse Ox 97 95 96 95 O2 Delivery Ventilator Ventilator Ventilator Ventilator 05/22/21 05/22/21 05/22/21 05/22/21 00:00 01:00 02:00 03:00 Temp 98.7 98.7 Pulse 54 59 61 Resp 20 20 20 B/P (MAP) 93/47 79/38 83/41 Pulse Ox 95 95 95 100 O2 Delivery Ventilator Ventilator Ventilator Ventilator 05/22/21 05/22/21 05/22/21 05/22/21 03:00 04:00 05:00 06:00 Temp 98.8 98.8 Pulse 66 70 72 66 Resp 20 20 20 20 B/P (MAP) 136/77 102/58 94/52 93/53 Pulse Ox 97 100 94 99 O2 Delivery Ventilator Ventilator Ventilator Ventilator 05/22/21 05/22/21 05/22/21 05/22/21 07:25 07:40 07:41 08:16 Temp 98.1 98.1 Pulse 60 57 Resp 20 20 B/P (MAP) 84/56 93/46 Pulse Ox 100 100 100 O2 Delivery Ventilator Mechanical Ventilator Ventilator Ventilator 05/22/21 05/22/21 05/22/21 05/22/21 09:00 09:25 10:00 10:01 Temp 98.1 98.1 Pulse 65 58 66 Resp 20 20 20 B/P (MAP) 81/42 95/52 82/43 Pulse Ox 100 100 97 O2 Delivery Ventilator Ventilator Ventilator 05/22/21 05/22/21 05/22/21 05/22/21 10:18 10:51 11:18 11:29 Temp 98.4 98.4 98.4 98.4 Pulse 79 58 59 Resp 20 20 20 B/P (MAP) 95/52 82/46 84/44 Pulse Ox 100 98 O2 Delivery Ventilator Ventilator 05/22/21 05/22/21 05/22/21 05/22/21 11:52 12:10 12:31 13:03 Temp 98.4 89.4 98.4 89.4 Pulse 71 63 83 Resp 20 20 20 B/P (MAP) 110/69 90/51 80/45 Pulse Ox 99 97 O2 Delivery Ventilator Ventilator Ventilator 05/22/21 05/22/21 05/22/21 05/22/21 13:20 14:00 15:16 15:35 Pulse 78 78 Resp 20 20 B/P (MAP) 91/45 130/83 Pulse Ox 96 96 97 96 O2 Delivery Ventilator Ventilator Ventilator Ventilator Intake and Output 05/21/21 05/21/21 05/22/21 15:00 23:00 07:00 Intake Total 200 ml 902 ml 2061.09 ml Output Total 2000 ml 3495 ml 167 ml Balance -1800 ml -2593 ml 1894.09 ml Justifications for Admission Other Justification YUDITH RANGEL MD May 22, 2021 15:52
[2021-05-23] VITALS (24 sets, daily range): BP systolic 86–192; BP diastolic 46–102
[2021-05-23] MEDS: fentaNYL HIGH DOSE PCA 55 ML IV PRN (00:31)
[2021-05-23] MEDS: IV NORMAL SALINE 1000ML BAG 1,000 ML IV SCH ×2 (05:25→17:24)
[2021-05-23] MEDS: HEPARIN for SUB-Q USE 5,000 UNIT/ML VIAL. SQ SCH ×3 (05:27→21:23)
[2021-05-23] MEDS: PROPOFOL 100 ML IV PRN ×2 (05:52→15:26)
[2021-05-23] MEDS: METOPROLOL IV PUSH 5 MG/5 ML VIAL. IVP PRN (05:55)
[2021-05-23] MEDS: PANTOPRAZOLE IV PUSH 40 MG VIAL. IVP SCH (05:59)
[2021-05-23 06:33] LABS: HEMATOCRIT 24.8 % (36.0-47.0); HEMOGLOBIN 7.9 g/dL (12.0-15.5); RED BLOOD COUNT 2.74 x10^6/uL (3.50-5.40); WHITE BLOOD COUNT 9.1 x10^3/uL (4.0-11.0)
[2021-05-23 06:51] LABS: CALCIUM 8.1 mg/dL (8.5-10.1); CREATININE 0.6 mg/dL (0.6-1.0); MAGNESIUM 2.1 mg/dL (1.8-2.4); POTASSIUM 3.6 mmol/L (3.5-5.1)
[2021-05-23 08:10] LABS: BASE EXCESS ABG 3 mmol/L (-3-3); HCO3 ABG 28 mmol/L (21-28); PCO2 ABG 42 mmHg (35-46); PO2 ABG 82 mmHg (65-108); SAT O2 ABG 95 % (92-99)
[2021-05-23 08:24] LABS: FIO2 ABG 50
[2021-05-23] MEDS: CITALOPRAM 20 MG TABLET. PO SCH (08:59)
[2021-05-23] MEDS: PRIMIDONE 50 MG TABLET PO SCH (08:59)
[2021-05-23] MEDS ORDERED: hydrALAZINE 20 MG/ML VIAL. IVP PRN (09:00)
[2021-05-23] MEDS: ELECTROLYTE (ICU) PROTOCOL. MC SCH (09:00)
[2021-05-23] MEDS: QUEtiapine 25 MG TABLET. PO SCH ×2 (09:00→21:23)
[2021-05-23] MEDS: FUROSEMIDE 40 MG/4 ML VIAL. IVP SCH ×2 (09:01→14:00)
[2021-05-23] MEDS: METOPROLOL TART IMMED RELEASE 50 MG TABLET. PO SCH ×2 (09:03→21:00)
[2021-05-23] MEDS ORDERED: POTASSIUM BICARB 20 MEQ EFFERVESCENT TABLET. PO ONE (11:00)
--- NOTE | 2021-05-23 11:12 | RAD ---
Study: XR CHEST 1V Indication: Covid negative. Ventilated patient. Comparison: 05/17/2021 Findings: Tracheostomy tube tip terminating 3 cm above the perry. Enteric tube extends into the stomach and te rminates beyond the inferior field of view. Right-sided PICC with the tip projecting within the dista l SVC. Redemonstrated prominence of the cardiomediastinal silhouette. Unchanged mikael. Persistence of bilater al airspace infiltrates but less dense such as at the right more so than left lung bases. The costoph renic angles are able to be delineated. No pneumothorax. Impression: 1. Support device positioning as above. 2. Persistent diffuse bilateral airspace opacities but decreasing in density from the comparison such as at the lung bases. Electronically signed by: ISABELL GUERRERO MD (05/23/2021 11:09 AM) [facility]
--- NOTE | 2021-05-23 12:02 | PDOC ---
[employer] PROGRESS NOTE Date of Service DOS: DATE: 05/23/21 TIME: 12:01 Chief Complaint Chief Complaint Respiratory failure Status post tracheostomy Probable bacterial pneumonia Recent COVID-19 in November of last year Possible tracheal [place] CHF History of tracheostomy with decannulation Chronic anticoagulation with some hemoptysis Septic shock Lactic acidosis Acute hypoxic respiratory failure secondary to likely bacterial pneumonia versus viral pneumonia, septic shock, lactic acidosis History of Present Illness History of Present Illness 05/23, blood pressure has swung abotu 100 points since yesterday AM, will add BP meds, sedation was changed, cont urrent appears better, calm 05/22/2021 better and more calm today on seroquel bp better off haldol OK, still propfolol Patient seen and examined in the ICU She remains on the ventilator, on trach AC/20/45/35% with 5 of PEEP Satting 95% Tracheostomy intact Simon Has NG feeds SCDs in place She is sedated - opens eyes, does not really follow Vitals/I&O Vitals/I&O: Vital Signs Date Time Temp Pulse Resp B/P (MAP) Pulse Ox O2 Delivery O2 Flow Rate FiO2 05/23/21 11:36 99 Ventilator 05/23/21 10:00 90 24 143/56 05/23/21 08:00 99.0 99.0 I & O0 05/22/21 05/22/21 05/23/21 15:00 23:00 07:00 Intake Total 966 ml 2148 ml 630 ml Output Total 800 ml 3100 ml 2000 ml Balance 166 ml -952 ml -1370 ml Physical Exam General: Other (Remains on a ventilator) Heart: Regular rate Lungs: Other (Decreased breath sounds) Abdomen: Normal bowel sounds Extremities: No clubbing, No cyanosis Skin: No significant lesion Labs Labs: Laboratory Tests Test 05/22/21 13:20 05/23/21 06:00 05/23/21 07:50 05/23/21 11:47 Hemoglobin 7.3 g/dL (12.0-15.5) 7.9 g/dL (12.0-15.5) Hematocrit 22.5 % (36.0-47.0) 24.8 % (36.0-47.0) Mean Corpuscular Hemoglobin Concent 32 g/dL (31-37) 32 g/dL (31-37) White Blood Count 9.1 x10^3/uL (4.0-11.0) Red Blood Count 2.74 x10^6/uL (3.50-5.40) Mean Corpuscular Volume 90 fL (79-100) Mean Corpuscular Hemoglobin 29 pg (25-35) Red Cell Distribution Width 15.0 % (11.5-14.5) Platelet Count 430 x10^3/uL (140-400) Sodium Level 140 mmol/L (136-145) Potassium Level 3.6 mmol/L (3.5-5.1) Chloride Level 103 mmol/L (98-107) Carbon Dioxide Level 32 mmol/L (21-32) Anion Gap 5 (6-14) Blood Urea Nitrogen 13 mg/dL (7-20) Creatinine 0.6 mg/dL (0.6-1.0) Estimated GFR (Cockcroft-Gault) 101.0 Glucose Level 109 mg/dL (70-99) Calcium Level 8.1 mg/dL (8.5-10.1) Ionized Calcium 1.16 mmol/L (1.13-1.32) Magnesium Level 2.1 mg/dL (1.8-2.4) O2 Saturation 95 % (92-99) Arterial Blood pH 7.44 (7.35-7.45) Arterial Blood pCO2 at Patient Temp 42 mmHg (35-46) Arterial Blood pO2 at Patient Temp 82 mmHg (65-108) Arterial Blood HCO3 28 mmol/L (21-28) Arterial Blood Base Excess 3 mmol/L (-3-3) FiO2 50 Glucose (Fingerstick) 122 mg/dL (70-99) Assessment and Plan Assessmemt and Plan Problems Medical Problems: (1) Cardiac arrest Status: Acute (2) Hypokalemia Status: Acute (3) Lactic acidosis Status: Acute (4) Pneumonia Status: Acute (5) Respiratory failure, acute Status: Acute (6) Septic shock Status: Acute Comment Review of Relevant I have reviewed the following items davina (where applicable) has been applied. Medications: Current Medications Medications (Trade) Dose Ordered Sig/Qing Route PRN Reason Start Time Stop Time Status Last Admin Dose Admin Metoprolol Tartrate (Lopressor) 50 mg BID PO 05/23/21 09:00 05/23/21 09:03 Hydralazine HCl (Apresoline Inj) 10 mg PRN Q4HRS PRN IVP ELEVATED BP, SEE COMMENTS 05/23/21 09:00 05/23/21 09:03 Potassium Bicarbonate (Potassium Effervescent Tablet) 60 meq 1X ONCE PO 05/23/21 11:00 05/23/21 11:01 DC 05/23/21 11:45 Justifications for Admission Other Justification RAMESH BARDALES MD May 23, 2021 12:02
--- NOTE | 2021-05-23 12:57 | PDOC ---
PULMONARY PROGRESS NOTES DATE: 05/23/21 TIME: 12:56 Subjective No overnight events discussed with RN and RT currently sedated 50% FiO2 5 of PEEP Vitals Vital Signs Date Time Temp Pulse Resp B/P (MAP) Pulse Ox O2 Delivery O2 Flow Rate FiO2 05/23/21 12:00 104 28 143/63 98 Ventilator 05/23/21 08:00 99.0 99.0 Lungs: Other (Decreased breath sounds) Cardiovascular: S1, S2 Extremities: Other (1+) Skin: No Rashes Labs Laboratory Tests Test 05/22/21 05:55 05/22/21 07:40 05/22/21 13:20 05/23/21 06:00 White Blood Count 6.5 x10^3/uL (4.0-11.0) 9.1 x10^3/uL (4.0-11.0) Red Blood Count 2.17 x10^6/uL (3.50-5.40) 2.74 x10^6/uL (3.50-5.40) Hemoglobin 6.5 g/dL (12.0-15.5) 7.3 g/dL (12.0-15.5) 7.9 g/dL (12.0-15.5) Hematocrit 19.4 % (36.0-47.0) 22.5 % (36.0-47.0) 24.8 % (36.0-47.0) Mean Corpuscular Volume 89 fL (79-100) 90 fL (79-100) Mean Corpuscular Hemoglobin 30 pg (25-35) 29 pg (25-35) Mean Corpuscular Hemoglobin Concent 34 g/dL (31-37) 32 g/dL (31-37) 32 g/dL (31-37) Red Cell Distribution Width 15.4 % (11.5-14.5) 15.0 % (11.5-14.5) Platelet Count 354 x10^3/uL (140-400) 430 x10^3/uL (140-400) Sodium Level 143 mmol/L (136-145) 140 mmol/L (136-145) Potassium Level 3.3 mmol/L (3.5-5.1) 3.6 mmol/L (3.5-5.1) Chloride Level 105 mmol/L (98-107) 103 mmol/L (98-107) Carbon Dioxide Level 32 mmol/L (21-32) 32 mmol/L (21-32) Anion Gap 6 (6-14) 5 (6-14) Blood Urea Nitrogen 13 mg/dL (7-20) 13 mg/dL (7-20) Creatinine 0.7 mg/dL (0.6-1.0) 0.6 mg/dL (0.6-1.0) Estimated GFR (Cockcroft-Gault) 84.5 101.0 BUN/Creatinine Ratio 19 (6-20) Glucose Level 101 mg/dL (70-99) 109 mg/dL (70-99) Calcium Level 7.9 mg/dL (8.5-10.1) 8.1 mg/dL (8.5-10.1) Total Bilirubin 0.3 mg/dL (0.2-1.0) Aspartate Amino Transf (AST/SGOT) 24 U/L (15-37) Alanine Aminotransferase (ALT/SGPT) 38 U/L (14-59) Alkaline Phosphatase 177 U/L (46-116) Total Protein 5.7 g/dL (6.4-8.2) Albumin 2.0 g/dL (3.4-5.0) Albumin/Globulin Ratio 0.5 (1.0-1.7) O2 Saturation 95 % (92-99) Arterial Blood pH 7.46 (7.35-7.45) Arterial Blood pCO2 at Patient Temp 45 mmHg (35-46) Arterial Blood pO2 at Patient Temp 83 mmHg (65-108) Arterial Blood HCO3 31 mmol/L (21-28) Arterial Blood Base Excess 7 mmol/L (-3-3) FiO2 50 Ionized Calcium 1.16 mmol/L (1.13-1.32) Magnesium Level 2.1 mg/dL (1.8-2.4) Test 05/23/21 07:50 05/23/21 11:47 O2 Saturation 95 % (92-99) Arterial Blood pH 7.44 (7.35-7.45) Arterial Blood pCO2 at Patient Temp 42 mmHg (35-46) Arterial Blood pO2 at Patient Temp 82 mmHg (65-108) Arterial Blood HCO3 28 mmol/L (21-28) Arterial Blood Base Excess 3 mmol/L (-3-3) FiO2 50 Glucose (Fingerstick) 122 mg/dL (70-99) Laboratory Tests Test 05/22/21 13:20 05/23/21 06:00 05/23/21 07:50 05/23/21 11:47 Hemoglobin 7.3 g/dL (12.0-15.5) 7.9 g/dL (12.0-15.5) Hematocrit 22.5 % (36.0-47.0) 24.8 % (36.0-47.0) Mean Corpuscular Hemoglobin Concent 32 g/dL (31-37) 32 g/dL (31-37) White Blood Count 9.1 x10^3/uL (4.0-11.0) Red Blood Count 2.74 x10^6/uL (3.50-5.40) Mean Corpuscular Volume 90 fL (79-100) Mean Corpuscular Hemoglobin 29 pg (25-35) Red Cell Distribution Width 15.0 % (11.5-14.5) Platelet Count 430 x10^3/uL (140-400) Sodium Level 140 mmol/L (136-145) Potassium Level 3.6 mmol/L (3.5-5.1) Chloride Level 103 mmol/L (98-107) Carbon Dioxide Level 32 mmol/L (21-32) Anion Gap 5 (6-14) Blood Urea Nitrogen 13 mg/dL (7-20) Creatinine 0.6 mg/dL (0.6-1.0) Estimated GFR (Cockcroft-Gault) 101.0 Glucose Level 109 mg/dL (70-99) Calcium Level 8.1 mg/dL (8.5-10.1) Ionized Calcium 1.16 mmol/L (1.13-1.32) Magnesium Level 2.1 mg/dL (1.8-2.4) O2 Saturation 95 % (92-99) Arterial Blood pH 7.44 (7.35-7.45) Arterial Blood pCO2 at Patient Temp 42 mmHg (35-46) Arterial Blood pO2 at Patient Temp 82 mmHg (65-108) Arterial Blood HCO3 28 mmol/L (21-28) Arterial Blood Base Excess 3 mmol/L (-3-3) FiO2 50 Glucose (Fingerstick) 122 mg/dL (70-99) Medications Active Scripts Medications Dose Route/Sig Max Daily Dose Days Date Category Dose Instructions Easy Neb Compressor Nebulizer (Nebulizer and Compressor) 1 Each Each Each MC PRN PRN 05/01/21 Rx Use with albuterol as needed every 4 hours Albuterol Sulfate Neb Soln (Albuterol Sulfate) 2.5 Mg/3 Ml Vial.neb 1 Vial NEB PRN Q4HRS PRN 30 05/01/21 Rx Levofloxacin 750 Mg Tablet 1 Tab PO DAILY 5 05/01/21 Rx Seroquel (Quetiapine Fumarate) 25 Mg Tablet 25 Mg PO BID 04/26/21 Reported Mysoline (Primidone) 50 Mg Tablet 50 Mg PO DAILY 04/26/21 Reported Escitalopram Oxalate 20 Mg Tablet 20 Mg PO DAILY 03/26/21 Reported Omeprazole 20 Mg Capsule.dr 20 Mg PO DAILY 03/26/21 Reported Eliquis (Apixaban) 5 Mg Tablet 5 Mg PO BID 03/26/21 Reported Lasix (Furosemide) 40 Mg Tablet 40 Mg PO DAILY 03/26/21 Reported Impression . 1. Acute hypoxic respiratory failure secondary to likely hypoxic respiratory a rrest leading to cardiac arrest.This is her second intubation in a week, . H/o tracheostomy 2. The patient with underlying history of COVID-19 viral pneumonia in late November and early December, had a trach, decannulated.. She required another hospitalization few weeks ago with respiratory failure, but was successfully extubated. April 27, 2021 3. Status post tracheostomy followed by decannulation.. November, December, 2020 [facility] 4. CT revealed no tracheal stenosis, 05/07 5. Underlying obesity. 6. Chronic interstitial lung disease 7. History of bleeding around trach 8. Anemia 9. Left upper extremity weakness. ct head neg 10. Hypotension, possibly related to sedation 11. Hypokalemia. Page of Chest x-ray from the reviewed, diffuse infiltrates, no change Plan . Updated 2/2 Discussed with social service manager yesterday Pressure support throughout the day AC nightly Pressure support throughout the day as tolerated Hemoglobin hematocrit noted hemoglobin 7.1 Restart home medications, antipsychotics Monitor labs As needed sedation Pulmonary hygiene Anticoagulation Monitor H&H KASHMIR BLISS MD May 23, 2021 12:57
--- NOTE | 2021-05-23 14:06 | NUR ---
SS following up with discharge planning. SS reviewed pt chart and discussed with pt RN. Pt is currently on the vent at 50%. COVID19 negative. Pt on IV Lasix. Pt on Propofol and Fentanyl. CPAP trial. Trach in place. Pt clinically accepted at [facility], ; fax [phone], and [facility], ; fax [phone]. Clinical updates phoned and faxed to [facility] and [facility]. Pt's daughter contacted and reported that pt has [employer] HMO plan, . Effective date 05/22/2021. [facility] and [facility] provided with insurance information. Currently awaiting insurance determination for LTACH. SS will continue to follow for discharge planning.
--- NOTE | 2021-05-23 15:07 | PDOC ---
PROGRESS NOTES Date of Service DATE: 05/23/21 TIME: 15:04 Subjective Subjective Patient seen and examined Objective Objective Vital Signs Date Time Temp Pulse Resp B/P (MAP) Pulse Ox O2 Delivery O2 Flow Rate FiO2 05/23/21 12:00 104 28 143/63 98 Ventilator 05/23/21 08:00 99.0 99.0 05/21/21 15:27 97.0 Intake and Output 05/23/21 07:00 Intake Total 3744 ml Output Total 5900 ml Balance -2156 ml IV Total 1044 ml Tube Feeding 1086 ml Blood Product 333 ml Blood Product IV Normal Saline Flush 866 ml Other 415 ml Output Urine Total 5900 ml Gastric Drainage Total 0 ml Physical Exam Abdomen: Normal bowel sounds Heart: Regular rate General: Other (Remains on a ventilator) Lungs: Other (Mildly decreased breath sounds) Assessment Assessment Problems Medical Problems: (1) Cardiac arrest Status: Acute (2) Hypokalemia Status: Acute (3) Lactic acidosis Status: Acute (4) Pneumonia Status: Acute (5) Respiratory failure, acute Status: Acute (6) Septic shock Status: Acute 1. Out of hospital acute cardiopulmonary arrest. Significant downtime. The patient remains on a ventilator. Rhythm stable. Continue supportive treatment and antibiotics. Possible placement later this week. 2. Respiratory failure. Redo of tracheostomy. Followed by the pulmonary service. 3. Recent treatment with Eliquis. I can find no history of atrial fibrillation or other indications for chronic anticoagulation. Holding Eliquis. Monitoring lab. 4. Anemia. Initial H&H of 6.5 and 19.4. Morning lab shows a hemoglobin hematocrit of 7.9/24.8. Continue present treatments and monitoring. 5. Hypokalemia. Morning potassium levels improved at 3.6. Creatinine of 0.6. Comment Review of Relevant I have reviewed the following items davina (where applicable) has been applied. Labs Laboratory Tests Test 05/22/21 05:55 05/22/21 07:40 05/22/21 13:20 05/23/21 06:00 White Blood Count 6.5 x10^3/uL (4.0-11.0) 9.1 x10^3/uL (4.0-11.0) Red Blood Count 2.17 x10^6/uL (3.50-5.40) 2.74 x10^6/uL (3.50-5.40) Hemoglobin 6.5 g/dL (12.0-15.5) 7.3 g/dL (12.0-15.5) 7.9 g/dL (12.0-15.5) Hematocrit 19.4 % (36.0-47.0) 22.5 % (36.0-47.0) 24.8 % (36.0-47.0) Mean Corpuscular Volume 89 fL (79-100) 90 fL (79-100) Mean Corpuscular Hemoglobin 30 pg (25-35) 29 pg (25-35) Mean Corpuscular Hemoglobin Concent 34 g/dL (31-37) 32 g/dL (31-37) 32 g/dL (31-37) Red Cell Distribution Width 15.4 % (11.5-14.5) 15.0 % (11.5-14.5) Platelet Count 354 x10^3/uL (140-400) 430 x10^3/uL (140-400) Sodium Level 143 mmol/L (136-145) 140 mmol/L (136-145) Potassium Level 3.3 mmol/L (3.5-5.1) 3.6 mmol/L (3.5-5.1) Chloride Level 105 mmol/L (98-107) 103 mmol/L (98-107) Carbon Dioxide Level 32 mmol/L (21-32) 32 mmol/L (21-32) Anion Gap 6 (6-14) 5 (6-14) Blood Urea Nitrogen 13 mg/dL (7-20) 13 mg/dL (7-20) Creatinine 0.7 mg/dL (0.6-1.0) 0.6 mg/dL (0.6-1.0) Estimated GFR (Cockcroft-Gault) 84.5 101.0 BUN/Creatinine Ratio 19 (6-20) Glucose Level 101 mg/dL (70-99) 109 mg/dL (70-99) Calcium Level 7.9 mg/dL (8.5-10.1) 8.1 mg/dL (8.5-10.1) Total Bilirubin 0.3 mg/dL (0.2-1.0) Aspartate Amino Transf (AST/SGOT) 24 U/L (15-37) Alanine Aminotransferase (ALT/SGPT) 38 U/L (14-59) Alkaline Phosphatase 177 U/L (46-116) Total Protein 5.7 g/dL (6.4-8.2) Albumin 2.0 g/dL (3.4-5.0) Albumin/Globulin Ratio 0.5 (1.0-1.7) O2 Saturation 95 % (92-99) Arterial Blood pH 7.46 (7.35-7.45) Arterial Blood pCO2 at Patient Temp 45 mmHg (35-46) Arterial Blood pO2 at Patient Temp 83 mmHg (65-108) Arterial Blood HCO3 31 mmol/L (21-28) Arterial Blood Base Excess 7 mmol/L (-3-3) FiO2 50 Ionized Calcium 1.16 mmol/L (1.13-1.32) Magnesium Level 2.1 mg/dL (1.8-2.4) Test 05/23/21 07:50 05/23/21 11:47 O2 Saturation 95 % (92-99) Arterial Blood pH 7.44 (7.35-7.45) Arterial Blood pCO2 at Patient Temp 42 mmHg (35-46) Arterial Blood pO2 at Patient Temp 82 mmHg (65-108) Arterial Blood HCO3 28 mmol/L (21-28) Arterial Blood Base Excess 3 mmol/L (-3-3) FiO2 50 Glucose (Fingerstick) 122 mg/dL (70-99) Laboratory Tests Test 05/23/21 06:00 05/23/21 07:50 05/23/21 11:47 White Blood Count 9.1 x10^3/uL (4.0-11.0) Red Blood Count 2.74 x10^6/uL (3.50-5.40) Hemoglobin 7.9 g/dL (12.0-15.5) Hematocrit 24.8 % (36.0-47.0) Mean Corpuscular Volume 90 fL (79-100) Mean Corpuscular Hemoglobin 29 pg (25-35) Mean Corpuscular Hemoglobin Concent 32 g/dL (31-37) Red Cell Distribution Width 15.0 % (11.5-14.5) Platelet Count 430 x10^3/uL (140-400) Sodium Level 140 mmol/L (136-145) Potassium Level 3.6 mmol/L (3.5-5.1) Chloride Level 103 mmol/L (98-107) Carbon Dioxide Level 32 mmol/L (21-32) Anion Gap 5 (6-14) Blood Urea Nitrogen 13 mg/dL (7-20) Creatinine 0.6 mg/dL (0.6-1.0) Estimated GFR (Cockcroft-Gault) 101.0 Glucose Level 109 mg/dL (70-99) Calcium Level 8.1 mg/dL (8.5-10.1) Ionized Calcium 1.16 mmol/L (1.13-1.32) Magnesium Level 2.1 mg/dL (1.8-2.4) O2 Saturation 95 % (92-99) Arterial Blood pH 7.44 (7.35-7.45) Arterial Blood pCO2 at Patient Temp 42 mmHg (35-46) Arterial Blood pO2 at Patient Temp 82 mmHg (65-108) Arterial Blood HCO3 28 mmol/L (21-28) Arterial Blood Base Excess 3 mmol/L (-3-3) FiO2 50 Glucose (Fingerstick) 122 mg/dL (70-99) Microbiology 05/18/21 Aerobic Culture - Final, Complete 05/03/21 Blood Culture - Final, Complete NO GROWTH AFTER 5 DAYS Medications Current Medications Propofol 100 ml @ As Directed STK-MED ONCE IV ; Start 05/03/21 at 10:43; Stop 05/03/21 at 10:43; Status DC Norepinephrine Bitartrate 8 mg/ Dextrose 258 ml @ 19.35 mls/ hr 1X ONCE IV Last administered on 05/03/21at 11:20; Start 05/03/21 at 11:15; Stop 05/04/21 at 00:34; Status DC Propofol (Diprivan) 200 mg TITRATE ONCE IV ; Start 05/03/21 at 11:45; Stop 05/03/21 at 11:46; Status UNV Propofol 100 ml @ 3 mls/hr CONT PRN IV PER PROTOCOL Last administered on 05/03/21at 10:50; Start 05/03/21 at 11:45; Stop 05/03/21 at 12:49; Status DC Cefepime HCl (Maxipime) 2 gm 1X ONCE IVP Last administered on 05/03/21at 11:45; Start 05/03/21 at 11:45; Stop 05/03/21 at 11:46; Status DC Vancomycin HCl 1.5 gm/Sodium Chloride 500 ml @ 250 mls/hr 1X ONCE IV ; Start 05/03/21 at 11:45; Stop 05/03/21 at 13:44; Status UNV Sodium Chloride 1,000 ml @ 1,000 mls/hr 1X ONCE IV Last administered on 05/03/21at 10:50; Start 05/03/21 at 11:45; Stop 05/03/21 at 12:44; Status DC Sodium Chloride 1,000 ml @ 1,000 mls/hr 1X ONCE IV Last administered on 05/03/21at 11:00; Start 05/03/21 at 11:45; Stop 05/03/21 at 12:44; Status DC Sodium Chloride 1,000 ml @ 250 mls/hr Q4H IV Last administered on 05/04/21at 03 :45; Start 05/03/21 at 11:45; Stop 05/04/21 at 11:44; Status DC Vancomycin HCl 2 gm/Sodium Chloride 500 ml @ 250 mls/hr 1X ONCE IV Last administered on 05/03/21at 12:00; Start 05/03/21 at 12:00; Stop 05/03/21 at 13:59; Status DC Potassium Bicarbonate (Potassium Effervescent Tablet) 40 meq 1X ONCE NG Last administered on 05/03/21at 15:01; Start 05/03/21 at 12:00; Stop 05/03/21 at 12:01; Status DC Potassium Chloride/Water 100 ml @ 100 mls/hr Q1H IV ; Start 05/03/21 at 12:00; Stop 05/03/21 at 12:04; Status DC Apixaban (Eliquis) 5 mg BID PO ; Start 05/03/21 at 21:00; Stop 05/03/21 at 15:54; Status DC Primidone (Mysoline) 50 mg DAILY PO Last administered on 05/23/21at 08:59; Start 05/04/21 at 09:00 Quetiapine Fumarate (SEROquel) 25 mg BID PO Last administered on 05/19/21at 20:49; Start 05/03/21 at 21:00; Stop 05/20/21 at 09:09; Status DC Citalopram Hydrobromide (CeleXA) 20 mg DAILY PO Last administered on 05/23/21at 08:59; Start 05/04/21 at 09:00 Pantoprazole Sodium (PROTONIX VIAL for IV PUSH) 40 mg DAILYAC IVP Last administered on 05/23/21at 05:59; Start 05/04/21 at 07:30 Potassium Chloride/Water 100 ml @ 100 mls/hr Q1H IV Last administered on 05/03/21at 13:43; Start 05/03/21 at 12:00; Stop 05/03/21 at 13:59; Status DC Magnesium Sulfate 50 ml @ 25 mls/hr 1X ONCE IV Last administered on 05/03/21at 15:00; Start 05/03/21 at 12:00; Stop 05/03/21 at 13:59; Status DC Ondansetron HCl (Zofran) 4 mg PRN Q6HRS PRN IVP NAUSEA/VOMITING; Start 05/03/21 at 12:00 Calcium Carbonate/ Glycine (Tums) 500 mg PRN Q3HRS PRN PO HEARTBURN / GAS; Start 05/03/21 at 12:00 Info (Icu Electrolyte Protocol) 1 ea DAILY MC Last administered on 05/23/21at 09:00; Start 05/04/21 at 09:00 Sodium Chloride (Normal Saline Flush) 3 ml QSHIFT PRN IV AFTER MEDS AND BLOOD DRAWS; Start 05/03/21 at 12:00 Potassium Chloride/Water 100 ml @ 100 mls/hr Q1H IV Last administered on 05/03/21at 15:57; Start 05/03/21 at 14:00; Stop 05/03/21 at 15:59; Status DC Fentanyl Citrate 30 ml @ 2.5 mls/hr CONT PRN IV SEE PROTOCOL Last administered on 05/08/21at 06:54; Start 05/03/21 at 12:45; Stop 05/15/21 at 07:41; Status DC Midazolam HCl 100 ml @ 1 mls/hr CONT PRN IV SEE PROTOCOL Last administered on 05/18/21at 08:14; Start 05/03/21 at 12:45 Propofol 100 ml @ 3 mls/hr CONT PRN IV PER PROTOCOL Last administered on 05/23/21at 05:52; Start 05/03/21 at 12:45 Vecuronium [place] (Norcuron Bolus) 6 mg PRN 1X PRN IV VENT INDUCTION; Start 05/03/21 at 12:45; Stop 05/04/21 at 12:44; Status DC Dexmedetomidine HCl 400 mcg/ Sodium Chloride 100 ml @ 7,500 mls/hr CONT PRN IV PER PROTOCOL Last administered on 05/09/21at 10:42; Start 05/03/21 at 12:45; Stop 05/09/21 at 10:49; Status DC Iohexol (Omnipaque 350 Mg/ml) 100 ml 1X ONCE IV Last administered on 05/03/21at 12:58; Start 05/03/21 at 13:00; Stop 05/03/21 at 13:01; Status DC Info (CONTRAST GIVEN -- Rx MONITORING) 1 each PRN DAILY PRN MC SEE COMMENTS; Start 05/03/21 at 13:00; Stop 05/05/21 at 12:59; Status DC Piperacillin Sod/ Tazobactam Sod (Zosyn Per Pharmacy) 1 each PRN DAILY PRN MC SEE COMMENTS; Start 05/03/21 at 15:15; Stop 05/03/21 at 15:07; Status DC Vancomycin HCl (Vanco Per Pharmacy) 1 each PRN DAILY PRN MC SEE COMMENTS Last administered on 05/11/21at 09:00; Start 05/03/21 at 15:15; Stop 05/11/21 at 14:19; Status DC Cefepime HCl (Maxipime) 1 gm Q8HRS IVP ; Start 05/03/21 at 15:30; Status Cancel Insulin Human Lispro (HumaLOG) 0-7 UNITS TIDWMEALS SQ ; Start 05/03/21 at 17:00; Stop 05/07/21 at 07:52; Status DC Dextrose (Dextrose 50%-Water Syringe) 12.5 gm PRN Q15MIN PRN IV SEE COMMENTS; Start 05/03/21 at 15:15; Stop 05/07/21 at 07:53; Status DC Cefepime HCl (Maxipime) 1 gm Q8HRS IVP Last administered on 05/14/21at 14:23; Start 05/03/21 at 22:00; Stop 05/14/21 at 14:49; Status DC Methylprednisolone Sodium Succinate (SOLU-Medrol 125MG VIAL) 125 mg 1X ONCE IV Last administered on 05/03/21at 15:56; Start 05/03/21 at 15:30; Stop 05/03/21 at 15:31; Status DC Vancomycin HCl 1 gm/Sodium Chloride 250 ml @ 250 mls/hr Q12H IV Last administered on 05/10/21at 00:06; Start 05/04/21 at 00:00; Stop 05/10/21 at 10:46; Status DC Vancomycin HCl (Vancomycin Trough Level) 1 each 1X ONCE MC ; Start 05/04/21 at 23:30; Stop 05/04/21 at 23:31; Status DC Potassium Chloride/Water 100 ml @ 100 mls/hr Q1H IV Last administered on 05/04/21at 09:38; Start 05/04/21 at 08:00; Stop 05/04/21 at 09:59; Status DC Calcium Chloride (Calcium Chloride) 1,000 mg STK-MED ONCE .ROUTE ; Start 05/03/21 at 11:00; Stop 05/04/21 at 12:23; Status DC Sodium Bicarbonate (Sodium Bicarb Adult 8.4% Syr) 50 meq STK-MED ONCE .ROUTE ; Start 05/03/21 at 11:00; Stop 05/04/21 at 12:23; Status DC Epinephrine HCl (EPINEPHrine SYRINGE) 3 mg STK-MED ONCE .ROUTE ; Start 05/03/21 at 11:00; Stop 05/04/21 at 12:23; Status DC Potassium Chloride/Water 100 ml @ 100 mls/hr Q1H IV Last administered on 05/05/21at 12:19; Start 05/05/21 at 09:00; Stop 05/05/21 at 12:59; Status DC Potassium Chloride/Water 100 ml @ 100 mls/hr Q1H IV Last administered on at 11:05; Start 05/06/21 at 10:00; Stop 05/06/21 at 11:59; Status DC Insulin Human Lispro (HumaLOG) 0-7 UNITS Q6HRS SQ ; Start 05/07/21 at 12:00; Stop 05/10/21 at 11:00; Status DC Dextrose (Dextrose 50%-Water Syringe) 12.5 gm PRN Q15MIN PRN IV SEE COMMENTS; Start 05/07/21 at 08:00 Norepinephrine Bitartrate 8 mg/ Dextrose 258 ml @ 21.672 mls/ hr CONT PRN IV PER PROTOCOL Last administered on 05/20/21at 23:15; Start 05/07/21 at 11:30 Vancomycin HCl (Vancomycin Trough Level) 1 each 1X ONCE MC ; Start 05/09/21 at 11:30; Stop 05/09/21 at 11:31; Status DC Metoprolol Tartrate (Lopressor Vial) 5 mg PRN Q6HRS PRN IVP HYPERTENSION Last administered on 05/23/21at 05:55; Start 05/09/21 at 03:45 Scopolamine (Transderm-Scop) 1 patch Q3DAYS TD Last administered on 05/21/21at 09:11; Start 05/09/21 at 10:00 Dexmedetomidine HCl 400 mcg/ Sodium Chloride 100 ml @ 7,500 mls/hr CONT PRN IV PER PROTOCOL; Start 05/09/21 at 11:00; Stop 05/09/21 at 10:56; Status DC Dexmedetomidine HCl 400 mcg/ Sodium Chloride 100 ml @ 5 mls/hr CONT PRN IV PER PROTOCOL Last administered on 05/15/21at 21:21; Start 05/09/21 at 11:00; Stop 05/16/21 at 10:39; Status DC Potassium Bicarbonate (Potassium Effervescent Tablet) 20 meq 1X ONCE PEG Last administered on 05/09/21at 13:56; Start 05/09/21 at 14:00; Stop 05/09/21 at 14:01; Status DC Potassium Bicarbonate (Potassium Effervescent Tablet) 40 meq 1X ONCE PEG Last administered on 05/10/21at 10:23; Start 05/10/21 at 10:00; Stop 05/10/21 at 10:01; Status DC Vancomycin HCl 1.25 gm/Sodium Chloride 250 ml @ 167 mls/hr Q12H IV Last administered on 05/11/21at 11:34; Start 05/10/21 at 12:00; Stop 05/11/21 at 14:19; Status DC Potassium Bicarbonate (Potassium Effervescent Tablet) 40 meq 1X ONCE PO Last administered on 05/11/21at 10:55; Start 05/11/21 at 08:30; Stop 05/11/21 at 08:31; Status DC Midazolam HCl (Versed) 5 mg 1X ONCE IVP Last administered on 05/11/21at 11:34; Start 05/11/21 at 11:30; Stop 05/11/21 at 11:32; Status DC Potassium Chloride/Water 100 ml @ 100 mls/hr Q1H IV Last administered on 05/13/21at 10:23; Start 05/13/21 at 08:30; Stop 05/13/21 at 10:29; Status DC Fentanyl Citrate (Fentanyl 2ml Vial) 25 mcg PRN Q5MIN PRN IVP MILD PAIN 1-3; Start 05/15/21 at 06:00; Stop 05/15/21 at 20:00; Status DC Fentanyl Citrate (Fentanyl 2ml Vial) 50 mcg PRN Q5MIN PRN IVP MODERATE PAIN 4- 6; Start 05/15/21 at 06:00; Stop 05/15/21 at 20:00; Status DC Morphine Sulfate (Morphine Sulfate) 1 mg PRN Q10MIN PRN IVP SEVERE PAIN 7-10; Start 05/15/21 at 06:00; Stop 05/15/21 at 20:00; Status DC Ringer's Solution 1,000 ml @ 30 mls/hr Q24H IV Last administered on 05/15/21at 03:50; Start 05/15/21 at 06:00; Stop 05/15/21 at 17:59; Status DC Hydromorphone HCl (Dilaudid) 0.5 mg PRN Q10MIN PRN IVP SEVERE PAIN 7-10, 2nd CHOICE; Start 05/15/21 at 06:00; Stop 05/15/21 at 20:00; Status DC Prochlorperazine Edisylate (Compazine) 5 mg PACU PRN PRN IVP NAUSEA, MRX1; Start 05/15/21 at 06:00; Stop 05/15/21 at 20:00; Status DC Fentanyl Citrate 55 ml @ 1 mls/hr CONT PRN PRN IV SEE PROTOCOL Last administered on 05/23/21at 00:31; Start 05/15/21 at 07:45 Perflutren Protein Type A Microsphe (Optison) 0.66 mg 1X ONCE IV ; Start 05/15/21 at 07:45; Stop 05/15/21 at 07:46; Status DC Midazolam HCl (Versed) 5 mg 1X ONCE IVP Last administered on 05/15/21at 09:20; Start 05/15/21 at 09:15; Stop 05/15/21 at 09:16; Status DC Bupivacaine HCl/ Epinephrine Bitart (Sensorcain-Epi 0.5% Kit) 30 ml STK-MED ONCE INJ Last administered on 05/15/21at 09:49; Start 05/15/21 at 09:49; Stop 05/15/21 at 10:12; Status DC Cellulose (Surgicel Fibrillar 1x2) 1 each STK-MED ONCE TP Last administered on 05/15/21at 09:49; Start 05/15/21 at 09:49; Stop 05/15/21 at 10:12; Status DC Cellulose (Surgicel Hemostat 2x14) 1 each STK-MED ONCE SURGSITE Last administered on 05/15/21at 09:49; Start 05/15/21 at 09:49; Stop 05/15/21 at 10:12; Status DC Perflutren Protein Type A Microsphe (Optison) 0.66 mg STK-MED ONCE IV ; Start 05/15/21 at 07:00; Stop 05/15/21 at 13:03; Status DC Midazolam HCl (Versed) 5 mg STK-MED ONCE .ROUTE ; Start 05/11/21 at 11:32; Stop 05/15/21 at 13:06; Status DC Perflutren Protein Type A Microsphe (Optison) 0.66 mg STK-MED ONCE IV ; Start 05/15/21 at 06:29; Stop 05/15/21 at 13:44; Status DC Rocuronium [place] (Zemuron) 100 mg STK-MED ONCE .ROUTE ; Start 05/15/21 at 08:39; Stop 05/15/21 at 13:48; Status DC Fentanyl Citrate (Fentanyl 2ml Vial) 100 mcg STK-MED ONCE .ROUTE ; Start 05/15/21 at 08:39; Stop 05/15/21 at 13:48; Status DC Cellulose (Surgicel Fibrillar 1x2) 1 each STK-MED ONCE .ROUTE ; Start 05/15/21 at 08:42; Stop 05/15/21 at 13:48; Status DC Bupivacaine HCl/ Epinephrine Bitart (Sensorcain-Epi 0.5% Kit) 30 ml STK-MED ONCE .ROUTE ; Start 05/15/21 at 08:43; Stop 05/15/21 at 13:48; Status DC Epinephrine HCl (Adrenalin) 1 mg STK-MED ONCE .ROUTE ; Start 05/15/21 at 08:43; Stop 05/15/21 at 13:48; Status DC Midazolam HCl (Versed) 5 mg STK-MED ONCE .ROUTE ; Start 05/15/21 at 09:09; Stop 05/15/21 at 13:49; Status DC Rocuronium [place] (Zemuron) 50 mg STK-MED ONCE .ROUTE ; Start 05/15/21 at 09:49; Stop 05/15/21 at 13:49; Status DC Cellulose (Surgicel Hemostat 2x14) 1 each STK-MED ONCE .ROUTE ; Start 05/15/21 at 10:00; Stop 05/15/21 at 13:50; Status DC Perflutren Protein Type A Microsphe (Optison) 0.66 mg 1X ONCE IV Last administered on 05/15/21at 15:03; Start 05/15/21 at 15:15; Stop 05/15/21 at 15:16; Status DC Heparin Sodium (Porcine) (Heparin Sodium) 5,000 unit Q8HRS SQ Last administered on 05/23/21at 14:01; Start 05/16/21 at 14:00 Potassium Chloride/Water 100 ml @ 100 mls/hr Q1H IV Last administered on 05/17/21at 14:09; Start 05/17/21 at 11:00; Stop 05/17/21 at 13:59; Status DC Potassium Bicarbonate (Potassium Effervescent Tablet) 40 meq 1X ONCE PO Last administered on 05/18/21at 08:06; Start 05/18/21 at 07:45; Stop 05/18/21 at 07:46; Status DC Ringer's Solution 1,000 ml @ 1,000 mls/hr 1X ONCE IV Last administered on 05/19/21at 08:42; Start 05/19/21 at 08:45; Stop 05/19/21 at 09:44; Status DC Ringer's Solution 1,000 ml @ 75 mls/hr [id number] IV Last administered on 05/20/21at 19:38; Start 05/19/21 at 11:30; Stop 05/21/21 at 12:08; Status DC Dexmedetomidine HCl 400 mcg/ Sodium Chloride 100 ml @ 5.85 mls/hr CONT PRN IV PER PROTOCOL Last administered on 05/20/21at 19:17; Start 05/19/21 at 11:30 Sodium Chloride 500 ml @ 500 mls/hr 1X PRN PRN IV SEE COMMENTS Last administered on 05/19/21at 19:50; Start 05/19/21 at 11:30 Atropine Sulfate (ATROPINE 0.5mg SYRINGE) 0.5 mg PRN Q5MIN PRN IV SEE COMMENTS; Start 05/19/21 at 11:30 Haloperidol Lactate (Haldol Inj) 5 mg Q8HRS IVP Last administered on 05/21/21at 05:49; Start 05/20/21 at 09:15; Stop 05/21/21 at 08:47; Status DC Furosemide (Lasix) 40 mg [id number] IVP Last administered on 05/23/21at 14:00; Start 05/20/21 at 14:00 Potassium Chloride (Klor-Con) 40 meq 1X ONCE PO Last administered on 05/21/21at 09:08; Start 05/21/21 at 08:45; Stop 05/21/21 at 08:46; Status DC Haloperidol Lactate (Haldol Inj) 5 mg PRN Q8HRS PRN IVP agitation; Start 05/21/21 at 08:45 Quetiapine Fumarate (SEROquel) 25 mg BID PO Last administered on 05/23/21at 09:00; Start 05/21/21 at 09:00 Potassium Bicarbonate (Potassium Effervescent Tablet) 40 meq 1X ONCE PEG Last administered on 05/21/21at 09:30; Start 05/21/21 at 09:30; Stop 05/21/21 at 09:31; Status DC Sodium Chloride 1,000 ml @ 75 mls/hr [id number] IV Last administered on 05/23/21at 05:25; Start 05/21/21 at 12:15 Potassium Chloride (Klor-Con) 40 meq 1X ONCE PO ; Start 05/22/21 at 08:30; Stop 05/22/21 at 08:47; Status DC Potassium Chloride (Klor-Con) 40 meq Q2H PO ; Start 05/22/21 at 08:30; Stop 05/22/21 at 08:47; Status DC Magnesium Sulfate 50 ml @ 25 mls/hr 1X ONCE IV Last administered on 05/22/21at 09:37; Start 05/22/21 at 08:30; Stop 05/22/21 at 10:29; Status DC Potassium Bicarbonate (Potassium Effervescent Tablet) 40 meq 1X ONCE PEG Last administered on 05/22/21at 09:36; Start 05/22/21 at 08:30; Stop 05/22/21 at 08:36; Status DC Potassium Bicarbonate (Potassium Effervescent Tablet) 40 meq 1X ONCE PO Last administered on 05/22/21at 10:41; Start 05/22/21 at 10:30; Stop 05/22/21 at 10:31; Status DC Metoprolol Tartrate (Lopressor) 50 mg BID PO Last administered on 05/23/21at 09:03; Start 05/23/21 at 09:00 Hydralazine HCl (Apresoline Inj) 10 mg PRN Q4HRS PRN IVP ELEVATED BP, SEE COMMENTS Last administered on 05/23/21at 09:03; Start 05/23/21 at 09:00 Potassium Bicarbonate (Potassium Effervescent Tablet) 60 meq 1X ONCE PO Last administered on 05/23/21at 11:45; Start 05/23/21 at 11:00; Stop 05/23/21 at 11:01; Status DC Active Scripts Active Easy Neb Compressor Nebulizer (Nebulizer and Compressor) 1 Each Each Each MC PRN PRN Use with albuterol as needed every 4 hours Albuterol Sulfate Neb Soln (Albuterol Sulfate) 2.5 Mg/3 Ml Vial.neb 1 Vial NEB PRN Q4HRS PRN 30 Days Levofloxacin 750 Mg Tablet 1 Tab PO DAILY 5 Days Reported Seroquel (Quetiapine Fumarate) 25 Mg Tablet 25 Mg PO BID Mysoline (Primidone) 50 Mg Tablet 50 Mg PO DAILY Escitalopram Oxalate 20 Mg Tablet 20 Mg PO DAILY Omeprazole 20 Mg Capsule.dr 20 Mg PO DAILY Eliquis (Apixaban) 5 Mg Tablet 5 Mg PO BID Lasix (Furosemide) 40 Mg Tablet 40 Mg PO DAILY Vitals/I & O Vital Sign - Last 24 Hours 05/22/21 05/22/21 05/22/21 05/22/21 15:16 15:35 16:03 17:14 Temp 98.3 98.3 Pulse 78 78 101 Resp 20 22 B/P (MAP) 130/83 119/75 151/65 Pulse Ox 97 96 97 97 O2 Delivery Ventilator Ventilator Ventilator Ventilator 05/22/21 05/22/21 05/22/21 05/22/21 17:27 18:08 18:11 19:00 Temp 97.6 97.6 Pulse 101 110 Resp B/P (MAP) 151/65 158/78 Pulse Ox 96 97 97 O2 Delivery Ventilator Ventilator Ventilator Ventilator 05/22/21 05/22/21 05/22/21 05/22/21 19:56 20:00 20:00 21:00 Pulse 108 94 Resp B/P (MAP) 147/70 138/74 Pulse Ox 98 97 98 O2 Delivery Ventilator Mechanical Ventilator Ventilator Ventilator 05/22/21 05/22/21 05/23/21 05/23/21 22:00 23:00 00:00 00:09 Pulse 95 112 98 Resp B/P (MAP) 106/54 181/79 189/100 O2 Delivery Ventilator Ventilator Ventilator Ventilator 05/23/21 05/23/21 05/23/21 05/23/21 00:31 01:00 02:00 03:00 Pulse 76 102 106 Resp B/P (MAP) 114/63 176/76 181/79 Pulse Ox 95 98 99 99 O2 Delivery Ventilator Ventilator Ventilator Ventilator 05/23/21 05/23/21 05/23/21 05/23/21 03:58 04:00 05:00 05:00 Temp 97.0 97.0 Pulse 96 112 84 Resp B/P (MAP) 183/85 181/90 181/92 Pulse Ox 96 97 98 98 O2 Delivery Ventilator Ventilator Ventilator Ventilator 05/23/21 05/23/21 05/23/21 05/23/21 05:55 06:00 07:00 08:00 Pulse 112 110 94 Resp B/P (MAP) 190/90 182/84 174/82 Pulse Ox 97 98 O2 Delivery Ventilator Ventilator Mechanical Ventilator 05/23/21 05/23/21 05/23/21 05/23/21 08:00 08:07 09:00 09:03 Temp 99.0 99.0 Pulse 80 108 108 Resp B/P (MAP) 175/84 192/102 198/102 Pulse Ox 100 99 97 O2 Delivery Ventilator Ventilator Ventilator 05/23/21 05/23/21 05/23/21 05/23/21 09:03 09:41 10:00 11:00 Pulse 108 90 96 Resp 24 24 B/P (MAP) 192/102 143/56 159/63 Pulse Ox 98 99 98 O2 Delivery Ventilator Ventilator Ventilator 05/23/21 05/23/21 05/23/21 11:33 11:36 12:00 Pulse 104 Resp 28 B/P (MAP) 143/63 Pulse Ox 99 99 98 O2 Delivery Ventilator Ventilator Ventilator Intake and Output 05/22/21 05/22/21 05/23/21 15:00 23:00 07:00 Intake Total 966 ml 2148 ml 630 ml Output Total 800 ml 3100 ml 2000 ml Balance 166 ml -952 ml -1370 ml Justifications for Admission Other Justification YUDITH RANGEL MD May 23, 2021 15:07
[2021-05-24] VITALS (25 sets, daily range): BP systolic 78–177; BP diastolic 37–88
[2021-05-24] MEDS: PROPOFOL 100 ML IV PRN ×3 (02:24→21:40)
[2021-05-24 05:56] LABS: BASO # 0.1 x10^3/uL (0.0-0.2); BASO % 1 % (0-3); EOS # 0.5 x10^3/uL (0.0-0.7); EOS % 5 % (0-3); HEMATOCRIT 25.2 % (36.0-47.0); HEMOGLOBIN 8.3 g/dL (12.0-15.5); LYMPH # 1.9 x10^3/uL (1.0-4.8); LYMPH % 19 % (24-48); MEAN CORPUSCULAR HEMOGLOBIN 29 pg (25-35); MEAN CORPUSCULAR HGB CONC 33 g/dL (31-37); MEAN CORPUSCULAR VOLUME 89 fL (79-100); MONO # 0.7 x10^3/uL (0.0-1.1); MONO % 7 % (0-9); NEUT # 6.9 x10^3/uL (1.8-7.7); NEUT % 69 % (31-73); PLATELET COUNT 395 x10^3/uL (140-400); RED BLOOD COUNT 2.84 x10^6/uL (3.50-5.40); RED CELL DISTRIBUTION WIDTH 15.2 % (11.5-14.5)
[2021-05-24] MEDS: HEPARIN for SUB-Q USE 5,000 UNIT/ML VIAL. SQ SCH ×3 (06:31→21:35)
[2021-05-24 06:54] LABS: ALBUMIN 2.7 g/dL (3.4-5.0); ALBUMIN/GLOBULIN RATIO 0.7 (1.0-1.7); CALCIUM 8.5 mg/dL (8.5-10.1); CREATININE 0.6 mg/dL (0.6-1.0); POTASSIUM 3.4 mmol/L (3.5-5.1); TOTAL BILIRUBIN 0.5 mg/dL (0.2-1.0); TOTAL PROTEIN 6.4 g/dL (6.4-8.2)
[2021-05-24] MEDS: FUROSEMIDE 40 MG/4 ML VIAL. IVP SCH ×2 (08:37→14:32)
[2021-05-24] MEDS: PANTOPRAZOLE IV PUSH 40 MG VIAL. IVP SCH (08:37)
[2021-05-24] MEDS: PRIMIDONE 50 MG TABLET PO SCH (08:39)
[2021-05-24] MEDS: METOPROLOL TART IMMED RELEASE 50 MG TABLET. PO SCH ×2 (08:39→21:09)
[2021-05-24] MEDS: CITALOPRAM 20 MG TABLET. PO SCH (08:39)
[2021-05-24] MEDS: SCOPOLAMINE 1.5MG PATCH. TD SCH (08:40)
[2021-05-24] MEDS: QUEtiapine 25 MG TABLET. PO SCH ×2 (08:57→21:05)
[2021-05-24] MEDS: ELECTROLYTE (ICU) PROTOCOL. MC SCH (09:00)
--- NOTE | 2021-05-24 09:12 | PDOC ---
PULMONARY PROGRESS NOTES DATE: 05/24/21 TIME: 09:12 Subjective No overnight events discussed with RN and RT Currently on pressure support Vitals Vital Signs Date Time Temp Pulse Resp B/P (MAP) Pulse Ox O2 Delivery O2 Flow Rate FiO2 05/24/21 08:39 60 116/59 05/24/21 07:57 99 Ventilator 05/24/21 06:00 20 05/24/21 04:00 99.5 99.5 Lungs: Other (Decreased breath sounds) Cardiovascular: S1, S2 Extremities: Other (1+) Skin: No Rashes Labs Laboratory Tests Test 05/22/21 13:20 05/23/21 06:00 05/23/21 07:50 05/23/21 11:47 Hemoglobin 7.3 g/dL (12.0-15.5) 7.9 g/dL (12.0-15.5) Hematocrit 22.5 % (36.0-47.0) 24.8 % (36.0-47.0) Mean Corpuscular Hemoglobin Concent 32 g/dL (31-37) 32 g/dL (31-37) White Blood Count 9.1 x10^3/uL (4.0-11.0) Red Blood Count 2.74 x10^6/uL (3.50-5.40) Mean Corpuscular Volume 90 fL (79-100) Mean Corpuscular Hemoglobin 29 pg (25-35) Red Cell Distribution Width 15.0 % (11.5-14.5) Platelet Count 430 x10^3/uL (140-400) Sodium Level 140 mmol/L (136-145) Potassium Level 3.6 mmol/L (3.5-5.1) Chloride Level 103 mmol/L (98-107) Carbon Dioxide Level 32 mmol/L (21-32) Anion Gap 5 (6-14) Blood Urea Nitrogen 13 mg/dL (7-20) Creatinine 0.6 mg/dL (0.6-1.0) Estimated GFR (Cockcroft-Gault) 101.0 Glucose Level 109 mg/dL (70-99) Calcium Level 8.1 mg/dL (8.5-10.1) Ionized Calcium 1.16 mmol/L (1.13-1.32) Magnesium Level 2.1 mg/dL (1.8-2.4) O2 Saturation 95 % (92-99) Arterial Blood pH 7.44 (7.35-7.45) Arterial Blood pCO2 at Patient Temp 42 mmHg (35-46) Arterial Blood pO2 at Patient Temp 82 mmHg (65-108) Arterial Blood HCO3 28 mmol/L (21-28) Arterial Blood Base Excess 3 mmol/L (-3-3) FiO2 50 Glucose (Fingerstick) 122 mg/dL (70-99) Test 05/24/21 05:30 White Blood Count 10.0 x10^3/uL (4.0-11.0) Red Blood Count 2.84 x10^6/uL (3.50-5.40) Hemoglobin 8.3 g/dL (12.0-15.5) Hematocrit 25.2 % (36.0-47.0) Mean Corpuscular Volume 89 fL (79-100) Mean Corpuscular Hemoglobin 29 pg (25-35) Mean Corpuscular Hemoglobin Concent 33 g/dL (31-37) Red Cell Distribution Width 15.2 % (11.5-14.5) Platelet Count 395 x10^3/uL (140-400) Neutrophils (%) (Auto) 69 % (31-73) Lymphocytes (%) (Auto) 19 % (24-48) Monocytes (%) (Auto) 7 % (0-9) Eosinophils (%) (Auto) 5 % (0-3) Basophils (%) (Auto) 1 % (0-3) Neutrophils # (Auto) 6.9 x10^3/uL (1.8-7.7) Lymphocytes # (Auto) 1.9 x10^3/uL (1.0-4.8) Monocytes # (Auto) 0.7 x10^3/uL (0.0-1.1) Eosinophils # (Auto) 0.5 x10^3/uL (0.0-0.7) Basophils # (Auto) 0.1 x10^3/uL (0.0-0.2) Sodium Level 139 mmol/L (136-145) Potassium Level 3.4 mmol/L (3.5-5.1) Chloride Level 100 mmol/L (98-107) Carbon Dioxide Level 31 mmol/L (21-32) Anion Gap 8 (6-14) Blood Urea Nitrogen 15 mg/dL (7-20) Creatinine 0.6 mg/dL (0.6-1.0) Estimated GFR (Cockcroft-Gault) 101.0 BUN/Creatinine Ratio 25 (6-20) Glucose Level 110 mg/dL (70-99) Calcium Level 8.5 mg/dL (8.5-10.1) Total Bilirubin 0.5 mg/dL (0.2-1.0) Aspartate Amino Transf (AST/SGOT) 25 U/L (15-37) Alanine Aminotransferase (ALT/SGPT) 32 U/L (14-59) Alkaline Phosphatase 165 U/L (46-116) Total Protein 6.4 g/dL (6.4-8.2) Albumin 2.7 g/dL (3.4-5.0) Albumin/Globulin Ratio 0.7 (1.0-1.7) Laboratory Tests Test 05/23/21 11:47 05/24/21 05:30 Glucose (Fingerstick) 122 mg/dL (70-99) White Blood Count 10.0 x10^3/uL (4.0-11.0) Red Blood Count 2.84 x10^6/uL (3.50-5.40) Hemoglobin 8.3 g/dL (12.0-15.5) Hematocrit 25.2 % (36.0-47.0) Mean Corpuscular Volume 89 fL (79-100) Mean Corpuscular Hemoglobin 29 pg (25-35) Mean Corpuscular Hemoglobin Concent 33 g/dL (31-37) Red Cell Distribution Width 15.2 % (11.5-14.5) Platelet Count 395 x10^3/uL (140-400) Neutrophils (%) (Auto) 69 % (31-73) Lymphocytes (%) (Auto) 19 % (24-48) Monocytes (%) (Auto) 7 % (0-9) Eosinophils (%) (Auto) 5 % (0-3) Basophils (%) (Auto) 1 % (0-3) Neutrophils # (Auto) 6.9 x10^3/uL (1.8-7.7) Lymphocytes # (Auto) 1.9 x10^3/uL (1.0-4.8) Monocytes # (Auto) 0.7 x10^3/uL (0.0-1.1) Eosinophils # (Auto) 0.5 x10^3/uL (0.0-0.7) Basophils # (Auto) 0.1 x10^3/uL (0.0-0.2) Sodium Level 139 mmol/L (136-145) Potassium Level 3.4 mmol/L (3.5-5.1) Chloride Level 100 mmol/L (98-107) Carbon Dioxide Level 31 mmol/L (21-32) Anion Gap 8 (6-14) Blood Urea Nitrogen 15 mg/dL (7-20) Creatinine 0.6 mg/dL (0.6-1.0) Estimated GFR (Cockcroft-Gault) 101.0 BUN/Creatinine Ratio 25 (6-20) Glucose Level 110 mg/dL (70-99) Calcium Level 8.5 mg/dL (8.5-10.1) Total Bilirubin 0.5 mg/dL (0.2-1.0) Aspartate Amino Transf (AST/SGOT) 25 U/L (15-37) Alanine Aminotransferase (ALT/SGPT) 32 U/L (14-59) Alkaline Phosphatase 165 U/L (46-116) Total Protein 6.4 g/dL (6.4-8.2) Albumin 2.7 g/dL (3.4-5.0) Albumin/Globulin Ratio 0.7 (1.0-1.7) Medications Active Scripts Medications Dose Route/Sig Max Daily Dose Days Date Category Dose Instructions Easy Neb Compressor Nebulizer (Nebulizer and Compressor) 1 Each Each Each PRN PRN 05/01/21 Rx Use with albuterol as needed every 4 hours Albuterol Sulfate Neb Soln (Albuterol Sulfate) 2.5 Mg/3 Ml Vial.neb 1 Vial NEB PRN Q4HRS PRN 30 05/01/21 Rx Levofloxacin 750 Mg Tablet 1 Tab PO DAILY 5 05/01/21 Rx Seroquel (Quetiapine Fumarate) 25 Mg Tablet 25 Mg PO BID 04/26/21 Reported Mysoline (Primidone) 50 Mg Tablet 50 Mg PO DAILY 04/26/21 Reported Escitalopram Oxalate 20 Mg Tablet 20 Mg PO DAILY 03/26/21 Reported Omeprazole 20 Mg Capsule.dr 20 Mg PO DAILY 03/26/21 Reported Eliquis (Apixaban) 5 Mg Tablet 5 Mg PO BID 03/26/21 Reported Lasix (Furosemide) 40 Mg Tablet 40 Mg PO DAILY 03/26/21 Reported Impression . 1. Acute hypoxic respiratory failure secondary to likely hypoxic respiratory arrest leading to cardiac arrest.This is her second intubation in a week, . H/o tracheostomy 2. The patient with underlying history of COVID-19 viral pneumonia in late November and early December, had a trach, decannulated.. She required another hospitalization few weeks ago with respiratory failure, but was successfully extubated. April 27, 2021 3. Status post tracheostomy followed by decannulation.. November,December, [facility] 4. CT revealed no tracheal stenosis, 05/07 5. Underlying obesity. 6. Chronic interstitial lung disease 7. History of bleeding around trach 8. Anemia 9. Left upper extremity weakness. ct head neg 10. Hypotension, possibly related to sedation 11. Hypokalemia. Page of Chest x-ray from the reviewed, diffuse infiltrates, no change Plan . Updated / Haldol scheduled Discontinue sedation Pressure support throughout the day as tolerated Discussed with social work assistant yesterday Pressure support throughout the day AC nightly Pressure support throughout the day as tolerated Hemoglobin hematocrit noted hemoglobin 7.1 Restart home medications, antipsychotics KASHIMR BLISS MD May 24, 2021 09:12
[2021-05-24] MEDS ORDERED: POTASSIUM BICARB 20 MEQ EFFERVESCENT TABLET. PEG ONE ×2 (10:30→14:30)
[2021-05-24] MEDS: HALOPERIDOL LACTATE 5 MG/ML VIAL. IVP SCH ×3 (12:08→21:34)
--- NOTE | 2021-05-24 13:44 | PDOC ---
[employer] PROGRESS NOTE Date of Service DOS: DATE: 05/24/21 TIME: 13:43 Chief Complaint Chief Complaint Respiratory failure Status post tracheostomy Probable bacterial pneumonia Recent COVID-19 in November of last year Possible tracheal [place] CHF History of tracheostomy with decannulation Chronic anticoagulation with some hemoptysis Septic shock Lactic acidosis Acute hypoxic respiratory failure secondary to likely bacterial pneumonia versus viral pneumonia, septic shock, lactic acidosis History of Present Illness History of Present Illness 05/24, cont current doing OK, anxiety up 05/23, blood pressure has swung abotu 100 points since yesterday AM, will add BP meds, sedation was changed, cont urrent appears better, calm 05/22/2021 better and more calm today on seroquel bp better off haldol OK, still propfolol Patient seen and examined in the ICU She remains on the ventilator, on trach AC/20/45/35% with 5 of PEEP Satting 95% Tracheostomy intact Simon Has NG feeds SCDs in place She is sedated - opens eyes, does not really follow Vitals/I&O Vitals/I&O: Vital Signs Date Time Temp Pulse Resp B/P (MAP) Pulse Ox O2 Delivery O2 Flow Rate FiO2 05/24/21 12:12 99 Ventilator 05/24/21 12:00 98.7 60 18 86/37 98.7 I & O 05/23/21 05/23/21 05/24/21 15:00 23:00 07:00 Intake Total 714 ml 956.36 ml 1433 ml Output Total 2550 ml 1000 ml 500 ml Balance -1836 ml -43.64 ml 933 ml Physical Exam General: Other (Remains on a ventilator) Heart: Regular rate Lungs: Other (Decreased breath sounds) Abdomen: Normal bowel sounds Extremities: No clubbing, No cyanosis Skin: No significant lesion Labs Labs: Laboratory Tests Test 05/24/21 05:30 White Blood Count 10.0 x10^3/uL (4.0-11.0) Red Blood Count 2.84 x10^6/uL (3.50-5.40) Hemoglobin 8.3 g/dL (12.0-15.5) Hematocrit 25.2 % (36.0-47.0) Mean Corpuscular Volume 89 fL (79-100) Mean Corpuscular Hemoglobin 29 pg (25-35) Mean Corpuscular Hemoglobin Concent 33 g/dL (31-37) Red Cell Distribution Width 15.2 % (11.5-14.5) Platelet Count 395 x10^3/uL (140-400) Neutrophils (%) (Auto) 69 % (31-73) Lymphocytes (%) (Auto) 19 % (24-48) Monocytes (%) (Auto) 7 % (0-9) Eosinophils (%) (Auto) 5 % (0-3) Basophils (%) (Auto) 1 % (0-3) Neutrophils # (Auto) 6.9 x10^3/uL (1.8-7.7) Lymphocytes # (Auto) 1.9 x10^3/uL (1.0-4.8) Monocytes # (Auto) 0.7 x10^3/uL (0.0-1.1) Eosinophils # (Auto) 0.5 x10^3/uL (0.0-0.7) Basophils # (Auto) 0.1 x10^3/uL (0.0-0.2) Sodium Level 139 mmol/L (136-145) Potassium Level 3.4 mmol/L (3.5-5.1) Chloride Level 100 mmol/L (98-107) Carbon Dioxide Level 31 mmol/L (21-32) Anion Gap 8 (6-14) Blood Urea Nitrogen 15 mg/dL (7-20) Creatinine 0.6 mg/dL (0.6-1.0) Estimated GFR (Cockcroft-Gault) 101.0 BUN/Creatinine Ratio 25 (6-20) Glucose Level 110 mg/dL (70-99) Calcium Level 8.5 mg/dL (8.5-10.1) Total Bilirubin 0.5 mg/dL (0.2-1.0) Aspartate Amino Transf (AST/SGOT) 25 U/L (15-37) Alanine Aminotransferase (ALT/SGPT) 32 U/L (14-59) Alkaline Phosphatase 165 U/L (46-116) Total Protein 6.4 g/dL (6.4-8.2) Albumin 2.7 g/dL (3.4-5.0) Albumin/Globulin Ratio 0.7 (1.0-1.7) Assessment and Plan Assessmemt and Plan Problems Medical Problems: (1) Cardiac arrest Status: Acute (2) Hypokalemia Status: Acute (3) Lactic acidosis Status: Acute (4) Pneumonia Status: Acute (5) Respiratory failure, acute Status: Acute (6) Septic shock Status: Acute Comment Review of Relevant I have reviewed the following items davina (where applicable) has been applied. Medications: Current Medications Medications (Trade) Dose Ordered Sig/Qing Route PRN Reason Start Time Stop Time Status Last Admin Dose Admin Potassium Bicarbonate (Potassium Effervescent Tablet) 40 meq 1X ONCE PEG 05/24/21 10:30 05/24/21 10:32 DC 05/24/21 11:16 Haloperidol Lactate (Haldol Inj) 5 mg Q8HRS IVP 05/24/21 11:45 05/24/21 12:08 Justifications for Admission Other Justification RAMESH BARDALES MD May 24, 2021 13:44
--- NOTE | 2021-05-24 15:31 | NUR ---
SS following up with discharge planning. SS reviewed pt chart and discussed with pt RN. Pt is currently on the vent at 50%. COVID19 negative. Pt on IV Lasix. Pt on Propofol and Fentanyl. Breathing trial today. Trach in place. Pt clinically accepted at [facility], ; fax [phone], and [facility], ; fax [phone]. Insurance authorization still pending at this time. SS will continue to follow for discharge planning.
--- NOTE | 2021-05-24 16:51 | PDOC ---
PROGRESS NOTES Date of Service DATE: 05/24/21 TIME: 16:48 Subjective Subjective Patient seen and examined Objective Objective Vital Signs Date Time Temp Pulse Resp B/P (MAP) Pulse Ox O2 Delivery O2 Flow Rate FiO2 05/24/21 16:09 99 Ventilator 05/24/21 16:00 98.7 96 18 143/79 98.7 05/21/21 15:27 97.0 Intake and Output 05/24/21 07:00 Intake Total 3103.36 ml Output Total 4050 ml Balance -946.64 ml IV Total 774.36 ml Tube Feeding 1639 ml Other 690 ml Output Urine Total 4050 ml Physical Exam Abdomen: Normal bowel sounds Heart: Regular rate General: Other (Remains on a ventilator) Lungs: Other (Mildly decreased breath sounds) Assessment Assessment Problems Medical Problems: (1) Cardiac arrest Status: Acute (2) Hypokalemia Status: Acute (3) Lactic acidosis Status: Acute (4) Pneumonia Status: Acute (5) Respiratory failure, acute Status: Acute (6) Septic shock Status: Acute 1. Out of hospital acute cardiopulmonary arrest. Significant downtime. The patient remains on a ventilator. Rhythm stable. Continue supportive treatment and antibiotics. Possible placement later this week. 2. Respiratory failure. Redo of tracheostomy. Followed by the pulmonary service. 3. Recent treatment with Eliquis. I can find no history of atrial fibrillation or other indications for chronic anticoagulation. Holding Eliquis. Monitoring lab. 4. Anemia. Initial H&H of 6.5 and 19.4. Morning lab shows a hemoglobin hematocrit improved at 8.3/25.2. Continue present treatments and monitoring. 5. Hypokalemia. Morning potassium level of 3.4. Creatinine stable at 0.6. Comment Review of Relevant I have reviewed the following items davina (where applicable) has been applied. Labs Laboratory Tests Test 05/23/21 06:00 05/23/21 07:50 05/23/21 11:47 05/24/21 05:30 White Blood Count 9.1 x10^3/uL (4.0-11.0) 10.0 x10^3/uL (4.0-11.0) Red Blood Count 2.74 x10^6/uL (3.50-5.40) 2.84 x10^6/uL (3.50-5.40) Hemoglobin 7.9 g/dL (12.0-15.5) 8.3 g/dL (12.0-15.5) Hematocrit 24.8 % (36.0-47.0) 25.2 % (36.0-47.0) Mean Corpuscular Volume 90 fL (79-100) 89 fL (79-100) Mean Corpuscular Hemoglobin 29 pg (25-35) 29 pg (25-35) Mean Corpuscular Hemoglobin Concent 32 g/dL (31-37) 33 g/dL (31-37) Red Cell Distribution Width 15.0 % (11.5-14.5) 15.2 % (11.5-14.5) Platelet Count 430 x10^3/uL (140-400) 395 x10^3/uL (140-400) Sodium Level 140 mmol/L (136-145) 139 mmol/L (136-145) Potassium Level 3.6 mmol/L (3.5-5.1) 3.4 mmol/L (3.5-5.1) Chloride Level 103 mmol/L (98-107) 100 mmol/L (98-107) Carbon Dioxide Level 32 mmol/L (21-32) 31 mmol/L (21-32) Anion Gap 5 (6-14) 8 (6-14) Blood Urea Nitrogen 13 mg/dL (7-20) 15 mg/dL (7-20) Creatinine 0.6 mg/dL (0.6-1.0) 0.6 mg/dL (0.6-1.0) Estimated GFR (Cockcroft-Gault) 101.0 101.0 Glucose Level 109 mg/dL (70-99) 110 mg/dL (70-99) Calcium Level 8.1 mg/dL (8.5-10.1) 8.5 mg/dL (8.5-10.1) Ionized Calcium 1.16 mmol/L (1.13-1.32) Magnesium Level 2.1 mg/dL (1.8-2.4) O2 Saturation 95 % (92-99) Arterial Blood pH 7.44 (7.35-7.45) Arterial Blood pCO2 at Patient Temp 42 mmHg (35-46) Arterial Blood pO2 at Patient Temp 82 mmHg (65-108) Arterial Blood HCO3 28 mmol/L (21-28) Arterial Blood Base Excess 3 mmol/L (-3-3) FiO2 50 Glucose (Fingerstick) 122 mg/dL (70-99) Neutrophils (%) (Auto) 69 % (31-73) Lymphocytes (%) (Auto) 19 % (24-48) Monocytes (%) (Auto) 7 % (0-9) Eosinophils (%) (Auto) 5 % (0-3) Basophils (%) (Auto) 1 % (0-3) Neutrophils # (Auto) 6.9 x10^3/uL (1.8-7.7) Lymphocytes # (Auto) 1.9 x10^3/uL (1.0-4.8) Monocytes # (Auto) 0.7 x10^3/uL (0.0-1.1) Eosinophils # (Auto) 0.5 x10^3/uL (0.0-0.7) Basophils # (Auto) 0.1 x10^3/uL (0.0-0.2) BUN/Creatinine Ratio 25 (6-20) Total Bilirubin 0.5 mg/dL (0.2-1.0) Aspartate Amino Transf (AST/SGOT) 25 U/L (15-37) Alanine Aminotransferase (ALT/SGPT) 32 U/L (14-59) Alkaline Phosphatase 165 U/L (46-116) Total Protein 6.4 g/dL (6.4-8.2) Albumin 2.7 g/dL (3.4-5.0) Albumin/Globulin Ratio 0.7 (1.0-1.7) Laboratory Tests Test 05/24/21 05:30 White Blood Count 10.0 x10^3/uL (4.0-11.0) Red Blood Count 2.84 x10^6/uL (3.50-5.40) Hemoglobin 8.3 g/dL (12.0-15.5) Hematocrit 25.2 % (36.0-47.0) Mean Corpuscular Volume 89 fL (79-100) Mean Corpuscular Hemoglobin 29 pg (25-35) Mean Corpuscular Hemoglobin Concent 33 g/dL (31-37) Red Cell Distribution Width 15.2 % (11.5-14.5) Platelet Count 395 x10^3/uL (140-400) Neutrophils (%) (Auto) 69 % (31-73) Lymphocytes (%) (Auto) 19 % (24-48) Monocytes (%) (Auto) 7 % (0-9) Eosinophils (%) (Auto) 5 % (0-3) Basophils (%) (Auto) 1 % (0-3) Neutrophils # (Auto) 6.9 x10^3/uL (1.8-7.7) Lymphocytes # (Auto) 1.9 x10^3/uL (1.0-4.8) Monocytes # (Auto) 0.7 x10^3/uL (0.0-1.1) Eosinophils # (Auto) 0.5 x10^3/uL (0.0-0.7) Basophils # (Auto) 0.1 x10^3/uL (0.0-0.2) Sodium Level 139 mmol/L (136-145) Potassium Level 3.4 mmol/L (3.5-5.1) Chloride Level 100 mmol/L (98-107) Carbon Dioxide Level 31 mmol/L (21-32) Anion Gap 8 (6-14) Blood Urea Nitrogen 15 mg/dL (7-20) Creatinine 0.6 mg/dL (0.6-1.0) Estimated GFR (Cockcroft-Gault) 101.0 BUN/Creatinine Ratio 25 (6-20) Glucose Level 110 mg/dL (70-99) Calcium Level 8.5 mg/dL (8.5-10.1) Total Bilirubin 0.5 mg/dL (0.2-1.0) Aspartate Amino Transf (AST/SGOT) 25 U/L (15-37) Alanine Aminotransferase (ALT/SGPT) 32 U/L (14-59) Alkaline Phosphatase 165 U/L (46-116) Total Protein 6.4 g/dL (6.4-8.2) Albumin 2.7 g/dL (3.4-5.0) Albumin/Globulin Ratio 0.7 (1.0-1.7) Microbiology 05/18/21 Aerobic Culture - Final, Complete 05/03/21 Blood Culture - Final, Complete NO GROWTH AFTER 5 DAYS Medications Current Medications Propofol 100 ml @ As Directed STK-MED ONCE IV ; Start 05/03/21 at 10:43; Stop 05/03/21 at 10:43; Status DC Norepinephrine Bitartrate 8 mg/ Dextrose 258 ml @ 19.35 mls/ hr 1X ONCE IV Last administered on 05/03/21at 11:20; Start 05/03/21 at 11:15; Stop 05/04/21 at 00:34; Status DC Propofol (Diprivan) 200 mg TITRATE ONCE IV ; Start 05/03/21 at 11:45; Stop 05/03/21 at 11:46; Status UNV Propofol 100 ml @ 3 mls/hr CONT PRN IV PER PROTOCOL Last administered on 05/03/21at 10:50; Start 05/03/21 at 11:45; Stop 05/03/21 at 12:49; Status DC Cefepime HCl (Maxipime) 2 gm 1X ONCE IVP Last administered on 05/03/21at 11:45; Start 05/03/21 at 11:45; Stop 05/03/21 at 11:46; Status DC Vancomycin HCl 1.5 gm/Sodium Chloride 500 ml @ 250 mls/hr 1X ONCE IV ; Start 05/03/21 at 11:45; Stop 05/03/21 at 13:44; Status UNV Sodium Chloride 1,000 ml @ 1,000 mls/hr 1X ONCE IV Last administered on 05/03/21at 10:50; Start 05/03/21 at 11:45; Stop 05/03/21 at 12:44; Status DC Sodium Chloride 1,000 ml @ 1,000 mls/hr 1X ONCE IV Last administered on 05/03/21at 11:00; Start 05/03/21 at 11:45; Stop 05/03/21 at 12:44; Status DC Sodium Chloride 1,000 ml @ 250 mls/hr Q4H IV Last administered on 05/04/21at 03:45; Start 05/03/21 at 11:45; Stop 05/04/21 at 11:44; Status DC Vancomycin HCl 2 gm/Sodium Chloride 500 ml @ 250 mls/hr 1X ONCE IV Last administered on 05/03/21at 12:00; Start 05/03/21 at 12:00; Stop 05/03/21 at 13:59; Status DC Potassium Bicarbonate (Potassium Effervescent Tablet) 40 meq 1X ONCE NG Last administered on 05/03/21at 15:01; Start 05/03/21 at 12:00; Stop 05/03/21 at 12:01; Status DC Potassium Chloride/Water 100 ml @ 100 mls/hr Q1H IV ; Start 05/03/21 at 12:00; Stop 05/03/21 at 12:04; Status DC Apixaban (Eliquis) 5 mg BID PO ; Start 05/03/21 at 21:00; Stop 05/03/21 at 15:54; Status DC Primidone (Mysoline) 50 mg DAILY PO Last administered on 05/24/21at 08:39; Start 05/04/21 at 09:00 Quetiapine Fumarate (SEROquel) 25 mg BID PO Last administered on 05/19/21at 20:49; Start 05/03/21 at 21:00; Stop 05/20/21 at 09:09; Status DC Citalopram Hydrobromide (CeleXA) 20 mg DAILY PO Last administered on 05/24/21at 08:39; Start 05/04/21 at 09:00 Pantoprazole Sodium (PROTONIX VIAL for IV PUSH) 40 mg DAILYAC IVP Last administered on 05/24/21at 08:37; Start 05/04/21 at 07:30 Potassium Chloride/Water 100 ml @ 100 mls/hr Q1H IV Last administered on 05/03/21at 13:43; Start 05/03/21 at 12:00; Stop 05/03/21 at 13:59; Status DC Magnesium Sulfate 50 ml @ 25 mls/hr 1X ONCE IV Last administered on 05/03/21at 15:00; Start 05/03/21 at 12:00; Stop 05/03/21 at 13:59; Status DC Ondansetron HCl (Zofran) 4 mg PRN Q6HRS PRN IVP NAUSEA/VOMITING; Start 05/03/21 at 12:00 Calcium Carbonate/ Glycine (Tums) 500 mg PRN Q3HRS PRN PO HEARTBURN / GAS; Start 05/03/21 at 12:00 Info (Icu Electrolyte Protocol) 1 ea DAILY MC Last administered on 05/24/21at 09:00; Start 05/04/21 at 09:00 Sodium Chloride (Normal Saline Flush) 3 ml QSHIFT PRN IV AFTER MEDS AND BLOOD DRAWS; Start 05/03/21 at 12:00 Potassium Chloride/Water 100 ml @ 100 mls/hr Q1H IV Last administered on 05/03/21at 15:57; Start 05/03/21 at 14:00; Stop 05/03/21 at 15:59; Status DC Fentanyl Citrate 30 ml @ 2.5 mls/hr CONT PRN IV SEE PROTOCOL Last administered on 05/08/21at 06:54; Start 05/03/21 at 12:45; Stop 05/15/21 at 07:41; Status DC Midazolam HCl 100 ml @ 1 mls/hr CONT PRN IV SEE PROTOCOL Last administered on 05/18/21at 08:14; Start 05/03/21 at 12:45 Propofol 100 ml @ 3 mls/hr CONT PRN IV PER PROTOCOL Last administered on 05/24/21at 08:37; Start 05/03/21 at 12:45 Vecuronium [place] (Norcuron Bolus) 6 mg PRN 1X PRN IV VENT INDUCTION; Start 05/03/21 at 12:45; Stop 05/04/21 at 12:44; Status DC Dexmedetomidine HCl 400 mcg/ Sodium Chloride 100 ml @ 7,500 mls/hr CONT PRN IV PER PROTOCOL Last administered on 05/09/21at 10:42; Start 05/03/21 at 12:45; Stop 05/09/21 at 10:49; Status DC Iohexol (Omnipaque 350 Mg/ml) 100 ml 1X ONCE IV Last administered on 05/03/21at 12:58; Start 05/03/21 at 13:00; Stop 05/03/21 at 13:01; Status DC Info (CONTRAST GIVEN -- Rx MONITORING) 1 each PRN DAILY PRN MC SEE COMMENTS; Start 05/03/21 at 13:00; Stop 05/05/21 at 12:59; Status DC Piperacillin Sod/ Tazobactam Sod (Zosyn Per Pharmacy) 1 each PRN DAILY PRN MC SEE COMMENTS; Start 05/03/21 at 15:15; Stop 05/03/21 at 15:07; Status DC Vancomycin HCl (Vanco Per Pharmacy) 1 each PRN DAILY PRN MC SEE COMMENTS Last administered on 05/11/21at 09:00; Start 05/03/21 at 15:15; Stop 05/11/21 at 14:19; Status DC Cefepime HCl (Maxipime) 1 gm Q8HRS IVP ; Start 05/03/21 at 15:30; Status Cancel Insulin Human Lispro (HumaLOG) 0-7 UNITS TIDWMEALS SQ ; Start 05/03/21 at 17:00; Stop 05/07/21 at 07:52; Status DC Dextrose (Dextrose 50%-Water Syringe) 12.5 gm PRN Q15MIN PRN IV SEE COMMENTS; Start 05/03/21 at 15:15; Stop 05/07/21 at 07:53; Status DC Cefepime HCl (Maxipime) 1 gm Q8HRS IVP Last administered on 05/14/21at 14:23; Start 05/03/21 at 22:00; Stop 05/14/21 at 14:49; Status DC Methylprednisolone Sodium Succinate (SOLU-Medrol 125MG VIAL) 125 mg 1X ONCE IV Last administered on 05/03/21at 15:56; Start 05/03/21 at 15:30; Stop 05/03/21 at 15:31; Status DC Vancomycin HCl 1 gm/Sodium Chloride 250 ml @ 250 mls/hr Q12H IV Last administered on 05/10/21at 00:06; Start 05/04/21 at 00:00; Stop 05/10/21 at 10:46; Status DC Vancomycin HCl (Vancomycin Trough Level) 1 each 1X ONCE MC ; Start 05/04/21 at 23:30; Stop 05/04/21 at 23:31; Status DC Potassium Chloride/Water 100 ml @ 100 mls/hr Q1H IV Last administered on 05/04/21at 09:38; Start 05/04/21 at 08:00; Stop 05/04/21 at 09:59; Status DC Calcium Chloride (Calcium Chloride) 1,000 mg STK-MED ONCE .ROUTE ; Start 05/03/21 at 11:00; Stop 05/04/21 at 12:23; Status DC Sodium Bicarbonate (Sodium Bicarb Adult 8.4% Syr) 50 meq STK-MED ONCE .ROUTE ; Start 05/03/21 at 11:00; Stop 05/04/21 at 12:23; Status DC Epinephrine HCl (EPINEPHrine SYRINGE) 3 mg STK-MED ONCE .ROUTE ; Start 05/03/21 at 11:00; Stop 05/04/21 at 12:23; Status DC Potassium Chloride/Water 100 ml @ 100 mls/hr Q1H IV Last administered on 05/05/21at 12:19; Start 05/05/21 at 09:00; Stop 05/05/21 at 12:59; Status DC Potassium Chloride/Water 100 ml @ 100 mls/hr Q1H IV Last administered on 05/06/21at 11:05; Start 05/06/21 at 10:00; Stop 05/06/21 at 11:59; Status DC Insulin Human Lispro (HumaLOG) 0-7 UNITS Q6HRS SQ ; Start 05/07/21 at 12:00; Stop 05/10/21 at 11:00; Status DC Dextrose (Dextrose 50%-Water Syringe) 12.5 gm PRN Q15MIN PRN IV SEE COMMENTS; Start 05/07/21 at 08:00 Norepinephrine Bitartrate 8 mg/ Dextrose 258 ml @ 21.672 mls/ hr CONT PRN IV PER PROTOCOL Last administered on 05/20/21at 23:15; Start 05/07/21 at 11:30 Vancomycin HCl (Vancomycin Trough Level) 1 each 1X ONCE MC ; Start 05/09/21 at 11:30; Stop 05/09/21 at 11:31; Status DC Metoprolol Tartrate (Lopressor Vial) 5 mg PRN Q6HRS PRN IVP HYPERTENSION Last administered on 05/23/21at 05:55; Start 05/09/21 at 03:45 Scopolamine (Transderm-Scop) 1 patch Q3DAYS TD Last administered on 05/24/21at 08:40; Start 05/09/21 at 10:00 Dexmedetomidine HCl 400 mcg/ Sodium Chloride 100 ml @ 7,500 mls/hr CONT PRN IV PER PROTOCOL; Start 05/09/21 at 11:00; Stop 05/09/21 at 10:56; Status DC Dexmedetomidine HCl 400 mcg/ Sodium Chloride 100 ml @ 5 mls/hr CONT PRN IV PER PROTOCOL Last administered on 05/15/21at 21:21; Start 05/09/21 at 11:00; Stop 05/16/21 at 10:39; Status DC Potassium Bicarbonate (Potassium Effervescent Tablet) 20 meq 1X ONCE PEG Last administered on 05/09/21at 13:56; Start 05/09/21 at 14:00; Stop 05/09/21 at 14:01; Status DC Potassium Bicarbonate (Potassium Effervescent Tablet) 40 meq 1X ONCE PEG Last administered on 05/10/21at 10:23; Start 05/10/21 at 10:00; Stop 05/10/21 at 10:01; Status DC Vancomycin HCl 1.25 gm/Sodium Chloride 250 ml @ 167 mls/hr Q12H IV Last administered on 05/11/21at 11:34; Start 05/10/21 at 12:00; Stop 05/11/21 at 14:19; Status DC Potassium Bicarbonate (Potassium Effervescent Tablet) 40 meq 1X ONCE PO Last administered on 05/11/21at 10:55; Start 05/11/21 at 08:30; Stop 05/11/21 at 08:31; Status DC Midazolam HCl (Versed) 5 mg 1X ONCE IVP Last administered on 05/11/21at 11:34; Start 05/11/21 at 11:30; Stop 05/11/21 at 11:32; Status DC Potassium Chloride/Water 100 ml @ 100 mls/hr Q1H IV Last administered on 05/13/21at 10:23; Start 05/13/21 at 08:30; Stop 05/13/21 at 10:29; Status DC Fentanyl Citrate (Fentanyl 2ml Vial) 25 mcg PRN Q5MIN PRN IVP MILD PAIN 1-3; Start 05/15/21 at 06:00; Stop 05/15/21 at 20:00; Status DC Fentanyl Citrate (Fentanyl 2ml Vial) 50 mcg PRN Q5MIN PRN IVP MODERATE PAIN 4- 6; Start 05/15/21 at 06:00; Stop 05/15/21 at 20:00; Status DC Morphine Sulfate (Morphine Sulfate) 1 mg PRN Q10MIN PRN IVP SEVERE PAIN 7-10; Start 05/15/21 at 06:00; Stop 05/15/21 at 20:00; Status DC Ringer's Solution 1,000 ml @ 30 mls/hr Q24H IV Last administered on 05/15/21at 03:50; Start 05/15/21 at 06:00; Stop 05/15/21 at 17:59; Status DC Hydromorphone HCl (Dilaudid) 0.5 mg PRN Q10MIN PRN IVP SEVERE PAIN 7-10, 2nd CHOICE; Start 05/15/21 at 06:00; Stop 05/15/21 at 20:00; Status DC Prochlorperazine Edisylate (Compazine) 5 mg PACU PRN PRN IVP NAUSEA, MRX1; Start 05/15/21 at 06:00; Stop 05/15/21 at 20:00; Status DC Fentanyl Citrate 55 ml @ 1 mls/hr CONT PRN PRN IV SEE PROTOCOL Last administered on 05/23/21at 00:31; Start 05/15/21 at 07:45 Perflutren Protein Type A Microsphe (Optison) 0.66 mg 1X ONCE IV ; Start 05/15/21 at 07:45; Stop 05/15/21 at 07:46; Status DC Midazolam HCl (Versed) 5 mg 1X ONCE IVP Last administered on 05/15/21at 09:20; Start 05/15/21 at 09:15; Stop 05/15/21 at 09:16; Status DC Bupivacaine HCl/ Epinephrine Bitart (Sensorcain-Epi 0.5% Kit) 30 ml STK-MED ONCE INJ Last administered on 05/15/21at 09:49; Start 05/15/21 at 09:49; Stop at 10:12; Status DC Cellulose (Surgicel Fibrillar 1x2) 1 each STK-MED ONCE TP Last administered on 05/15/21at 09:49; Start 05/15/21 at 09:49; Stop 05/15/21 at 10:12; Status DC Cellulose (Surgicel Hemostat 2x14) 1 each STK-MED ONCE SURGSITE Last a dministered on 05/15/21at 09:49; Start 05/15/21 at 09:49; Stop 05/15/21 at 10:12; Status DC Perflutren Protein Type A Microsphe (Optison) 0.66 mg STK-MED ONCE IV ; Start 05/15/21 at 07:00; Stop 05/15/21 at 13:03; Status DC Midazolam HCl (Versed) 5 mg STK-MED ONCE .ROUTE ; Start 05/11/21 at 11:32; Stop 05/15/21 at 13:06; Status DC Perflutren Protein Type A Microsphe (Optison) 0.66 mg STK-MED ONCE IV ; Start 05/15/21 at 06:29; Stop 05/15/21 at 13:44; Status DC Rocuronium [place] (Zemuron) 100 mg STK-MED ONCE .ROUTE ; Start 05/15/21 at 08:39; Stop 05/15/21 at 13:48; Status DC Fentanyl Citrate (Fentanyl 2ml Vial) 100 mcg STK-MED ONCE .ROUTE ; Start 05/15/21 at 08:39; Stop 05/15/21 at 13:48; Status DC Cellulose (Surgicel Fibrillar 1x2) 1 each STK-MED ONCE .ROUTE ; Start 05/15/21 at 08:42; Stop 05/15/21 at 13:48; Status DC Bupivacaine HCl/ Epinephrine Bitart (Sensorcain-Epi 0.5% Kit) 30 ml STK-MED ONCE .ROUTE ; Start 05/15/21 at 08:43; Stop 05/15/21 at 13:48; Status DC Epinephrine HCl (Adrenalin) 1 mg STK-MED ONCE .ROUTE ; Start 05/15/21 at 08:43; Stop 05/15/21 at 13:48; Status DC Midazolam HCl (Versed) 5 mg STK-MED ONCE .ROUTE ; Start 05/15/21 at 09:09; Stop 05/15/21 at 13:49; Status DC Rocuronium [place] (Zemuron) 50 mg STK-MED ONCE .ROUTE ; Start 05/15/21 at 09:49; Stop 05/15/21 at 13:49; Status DC Cellulose (Surgicel Hemostat 2x14) 1 each STK-MED ONCE .ROUTE ; Start 05/15/21 at 10:00; Stop 05/15/21 at 13:50; Status DC Perflutren Protein Type A Microsphe (Optison) 0.66 mg 1X ONCE IV Last administered on 05/15/21at 15:03; Start 05/15/21 at 15:15; Stop 05/15/21 at 15:16; Status DC Heparin Sodium (Porcine) (Heparin Sodium) 5,000 unit Q8HRS SQ Last administered on 05/24/21at 14:33; Start 05/16/21 at 14:00 Potassium Chloride/Water 100 ml @ 100 mls/hr Q1H IV Last administered on 05/17/21at 14:09; Start 05/17/21 at 11:00; Stop 05/17/21 at 13:59; Status DC Potassium Bicarbonate (Potassium Effervescent Tablet) 40 meq 1X ONCE PO Last administered on 05/18/21at 08:06; Start 05/18/21 at 07:45; Stop 05/18/21 at 07 :46; Status DC Ringer's Solution 1,000 ml @ 1,000 mls/hr 1X ONCE IV Last administered on 05/19/21at 08:42; Start 05/19/21 at 08:45; Stop 05/19/21 at 09:44; Status DC Ringer's Solution 1,000 ml @ 75 mls/hr [id number] IV Last administered on 05/20/21at 19:38; Start 05/19/21 at 11:30; Stop 05/21/21 at 12:08; Status DC Dexmedetomidine HCl 400 mcg/ Sodium Chloride 100 ml @ 5.85 mls/hr CONT PRN IV PER PROTOCOL Last administered on 05/20/21at 19:17; Start 05/19/21 at 11:30 Sodium Chloride 500 ml @ 500 mls/hr 1X PRN PRN IV SEE COMMENTS Last administered on 05/19/21at 19:50; Start 05/19/21 at 11:30 Atropine Sulfate (ATROPINE 0.5mg SYRINGE) 0.5 mg PRN Q5MIN PRN IV SEE COMMENTS; Start 05/19/21 at 11:30 Haloperidol Lactate (Haldol Inj) 5 mg Q8HRS IVP Last administered on 05/21/21at 05:49; Start 05/20/21 at 09:15; Stop 05/21/21 at 08:47; Status DC Furosemide (Lasix) 40 mg [id number] IVP Last administered on 05/24/21at 14:32; Start 05/20/21 at 14:00 Potassium Chloride (Klor-Con) 40 meq 1X ONCE PO Last administered on 05/21/21at 09:08; Start 05/21/21 at 08:45; Stop 05/21/21 at 08:46; Status DC Haloperidol Lactate (Haldol Inj) 5 mg PRN Q8HRS PRN IVP agitation; Start 05/21/21 at 08:45; Stop 05/24/21 at 11:32; Status DC Quetiapine Fumarate (SEROquel) 25 mg BID PO Last administered on 05/24/21at 08:57; Start 05/21/21 at 09:00 Potassium Bicarbonate (Potassium Effervescent Tablet) 40 meq 1X ONCE PEG Last administered on 05/21/21at 09:30; Start 05/21/21 at 09:30; Stop 05/21/21 at 09:31; Status DC Sodium Chloride 1,000 ml @ 75 mls/hr [id number] IV Last administered on 05/23/21at 05:25; Start 05/21/21 at 12:15; Stop 05/24/21 at 10:24; Status DC Potassium Chloride (Klor-Con) 40 meq 1X ONCE PO ; Start 05/22/21 at 08:30; Stop 05/22/21 at 08:47; Status DC Potassium Chloride (Klor-Con) 40 meq Q2H PO ; Start 05/22/21 at 08:30; Stop 05/22/21 at 08:47; Status DC Magnesium Sulfate 50 ml @ 25 mls/hr 1X ONCE IV Last administered on 05/22/21at 09:37; Start 05/22/21 at 08:30; Stop 05/22/21 at 10:29; Status DC Potassium Bicarbonate (Potassium Effervescent Tablet) 40 meq 1X ONCE PEG Last administered on 05/22/21at 09:36; Start 05/22/21 at 08:30; Stop 05/22/21 at 08:36; Status DC Potassium Bicarbonate (Potassium Effervescent Tablet) 40 meq 1X ONCE PO Last administered on 05/22/21at 10:41; Start 05/22/21 at 10:30; Stop 05/22/21 at 10:31; Status DC Metoprolol Tartrate (Lopressor) 50 mg BID PO Last administered on 05/24/21at 08:39; Start 05/23/21 at 09:00 Hydralazine HCl (Apresoline Inj) 10 mg PRN Q4HRS PRN IVP ELEVATED BP, SEE COMMENTS Last administered on 05/23/21at 09:03; Start 05/23/21 at 09:00 Potassium Bicarbonate (Potassium Effervescent Tablet) 60 meq 1X ONCE PO Last administered on 05/23/21at 11:45; Start 05/23/21 at 11:00; Stop 05/23/21 at 11:01; Status DC Potassium Bicarbonate (Potassium Effervescent Tablet) 40 meq 1X ONCE PEG Last administered on 05/24/21at 11:16; Start 05/24/21 at 10:30; Stop 05/24/21 at 10:32; Status DC Potassium Bicarbonate (Potassium Effervescent Tablet) 40 meq 1X ONCE PEG Last administered on 05/24/21at 14:33; Start 05/24/21 at 14:30; Stop 05/24/21 at 14:31; Status DC Haloperidol Lactate (Haldol Inj) 5 mg Q8HRS IVP Last administered on 05/24/21at 12:08; Start 05/24/21 at 11:45 Active Scripts Active Easy Neb Compressor Nebulizer (Nebulizer and Compressor) 1 Each Each Each MC PRN PRN Use with albuterol as needed every 4 hours Albuterol Sulfate Neb Soln (Albuterol Sulfate) 2.5 Mg/3 Ml Vial.neb 1 Vial NEB PRN Q4HRS PRN 30 Days Levofloxacin 750 Mg Tablet 1 Tab PO DAILY 5 Days Reported Seroquel (Quetiapine Fumarate) 25 Mg Tablet 25 Mg PO BID Mysoline (Primidone) 50 Mg Tablet 50 Mg PO DAILY Escitalopram Oxalate 20 Mg Tablet 20 Mg PO DAILY Omeprazole 20 Mg Capsule.dr 20 Mg PO DAILY Eliquis (Apixaban) 5 Mg Tablet 5 Mg PO BID Lasix (Furosemide) 40 Mg Tablet 40 Mg PO DAILY Vitals/I & O Vital Sign - Last 24 Hours 05/23/21 05/23/21 05/23/21 05/23/21 17:00 17:18 18:00 19:00 Pulse 103 73 62 Resp 24 22 20 B/P (MAP) 186/78 169/74 86/47 Pulse Ox 98 98 100 100 O2 Delivery Ventilator Ventilator Ventilator Ventilator 05/23/21 05/23/21 05/23/21 05/23/21 20:00 20:00 20:35 21:00 Temp 99.0 99.0 Pulse 64 62 Resp 22 B/P (MAP) 136/80 102/49 Pulse Ox 100 100 O2 Delivery Mechanical Ventilator Ventilator Ventilator 05/23/21 05/23/21 05/23/21 05/24/21 21:00 22:00 23:00 00:00 Temp 99.0 99.0 Pulse 62 56 56 56 Resp 20 20 20 20 B/P (MAP) 102/49 91/47 89/46 91/48 Pulse Ox 100 100 100 100 O2 Delivery Ventilator Ventilator Ventilator Ventilator 05/24/21 05/24/21 05/24/21 05/24/21 00:23 01:00 02:00 03:00 Pulse 55 53 98 Resp 20 20 20 B/P (MAP) 78/44 91/48 162/79 Pulse Ox 100 100 100 100 O2 Delivery Ventilator Ventilator Ventilator Ventilator 05/24/21 05/24/21 05/24/21 05/24/21 04:00 04:33 05:00 06:00 Temp 99.5 99.5 Pulse 102 96 100 Resp 20 20 20 B/P (MAP) 177/84 159/74 176/88 Pulse Ox 100 99 99 100 O2 Delivery Ventilator Ventilator Ventilator Ventilator 05/24/21 05/24/21 05/24/21 05/24/21 07:00 07:57 08:00 08:00 Temp 98.6 98.6 Pulse 100 76 Resp 20 20 B/P (MAP) 175/82 116/59 Pulse Ox 98 99 99 O2 Delivery Ventilator Ventilator Ventilator Mechanical Ventilator 05/24/21 05/24/21 05/24/21 05/24/21 08:39 09:00 10:00 11:00 Pulse 60 62 106 90 Resp 20 25 24 B/P (MAP) 116/59 106/56 150/70 117/51 Pulse Ox 100 98 98 O2 Delivery Ventilator Ventilator Ventilator 05/24/21 05/24/21 05/24/21 05/24/21 12:00 12:12 13:00 14:00 Temp 98.7 98.7 Pulse 60 58 96 Resp 18 16 24 B/P (MAP) 86/37 93/46 140/70 Pulse Ox 99 99 100 99 O2 Delivery Ventilator Ventilator Ventilator Ventilator 05/24/21 05/24/21 05/24/21 15:00 16:00 16:09 Temp 98.7 98.7 Pulse 98 96 Resp 29 18 B/P (MAP) 128/60 143/79 Pulse Ox 99 99 99 O2 Delivery Ventilator Ventilator Ventilator Intake and Output 05/23/21 05/23/21 05/24/21 15:00 23:00 07:00 Intake Total 714 ml 956.36 ml 1433 ml Output Total 2550 ml 1000 ml 500 ml Balance -1836 ml -43.64 ml 933 ml Justifications for Admission Other Justification YUDITH RANGEL MD May 24, 2021 16:51
[2021-05-24] MEDS: fentaNYL HIGH DOSE PCA 55 ML IV PRN (20:18)
[2021-05-25] VITALS (24 sets, daily range): BP systolic 84–165; BP diastolic 42–87
[2021-05-25] MEDS: HEPARIN for SUB-Q USE 5,000 UNIT/ML VIAL. SQ SCH ×3 (06:07→21:34)
[2021-05-25] MEDS: HALOPERIDOL LACTATE 5 MG/ML VIAL. IVP SCH ×3 (06:07→21:35)
--- NOTE | 2021-05-25 07:34 | PDOC ---
PULMONARY PROGRESS NOTES DATE: 05/25/21 TIME: 07:34 Subjective Son at the bedside Updated him on progress Informed him that we are looking into transferring her to LTAC Currently on pressure support Vitals Vital Signs Date Time Temp Pulse Resp B/P (MAP) Pulse Ox O2 Delivery O2 Flow Rate FiO2 05/25/21 07:00 60 20 107/70 100 Ventilator 05/25/21 04:00 99.3 99.3 05/24/21 20:18 98.0 Lungs: Other (Decreased breath sounds) Cardiovascular: S1, S2 Extremities: Other (1+) Skin: No Rashes Labs Laboratory Tests Test 05/23/21 07:50 05/23/21 11:47 05/24/21 05:30 05/24/21 21:43 O2 Saturation 95 % (92-99) Arterial Blood pH 7.44 (7.35-7.45) Arterial Blood pCO2 at Patient Temp 42 mmHg (35-46) Arterial Blood pO2 at Patient Temp 82 mmHg (65-108) Arterial Blood HCO3 28 mmol/L (21-28) Arterial Blood Base Excess 3 mmol/L (-3-3) FiO2 50 Glucose (Fingerstick) 122 mg/dL (70-99) 116 mg/dL (70-99) White Blood Count 10.0 x10^3/uL (4.0-11.0) Red Blood Count 2.84 x10^6/uL (3.50-5.40) Hemoglobin 8.3 g/dL (12.0-15.5) Hematocrit 25.2 % (36.0-47.0) Mean Corpuscular Volume 89 fL (79-100) Mean Corpuscular Hemoglobin 29 pg (25-35) Mean Corpuscular Hemoglobin Concent 33 g/dL (31-37) Red Cell Distribution Width 15.2 % (11.5-14.5) Platelet Count 395 x10^3/uL (140-400) Neutrophils (%) (Auto) 69 % (31-73) Lymphocytes (%) (Auto) 19 % (24-48) Monocytes (%) (Auto) 7 % (0-9) Eosinophils (%) (Auto) 5 % (0-3) Basophils (%) (Auto) 1 % (0-3) Neutrophils # (Auto) 6.9 x10^3/uL (1.8-7.7) Lymphocytes # (Auto) 1.9 x10^3/uL (1.0-4.8) Monocytes # (Auto) 0.7 x10^3/uL (0.0-1.1) Eosinophils # (Auto) 0.5 x10^3/uL (0.0-0.7) Basophils # (Auto) 0.1 x10^3/uL (0.0-0.2) Sodium Level 139 mmol/L (136-145) Potassium Level 3.4 mmol/L (3.5-5.1) Chloride Level 100 mmol/L (98-107) Carbon Dioxide Level 31 mmol/L (21-32) Anion Gap 8 (6-14) Blood Urea Nitrogen 15 mg/dL (7-20) Creatinine 0.6 mg/dL (0.6-1.0) Estimated GFR (Cockcroft-Gault) 101.0 BUN/Creatinine Ratio 25 (6-20) Glucose Level 110 mg/dL (70-99) Calcium Level 8.5 mg/dL (8.5-10.1) Total Bilirubin 0.5 mg/dL (0.2-1.0) Aspartate Amino Transf (AST/SGOT) 25 U/L (15-37) Alanine Aminotransferase (ALT/SGPT) 32 U/L (14-59) Alkaline Phosphatase 165 U/L (46-116) Total Protein 6.4 g/dL (6.4-8.2) Albumin 2.7 g/dL (3.4-5.0) Albumin/Globulin Ratio 0.7 (1.0-1.7) Laboratory Tests Test 05/24/21 21:43 Glucose (Fingerstick) 116 mg/dL (70-99) Medications Active Scripts Medications Dose Route/Sig Max Daily Dose Days Date Category Dose Instructions Easy Neb Compressor Nebulizer (Nebulizer and Compressor) 1 Each Each Each MC PRN PRN 05/01/21 Rx Use with albuterol as needed every 4 hours Albuterol Sulfate Neb Soln (Albuterol Sulfate) 2.5 Mg/3 Ml Vial.neb 1 Vial NEB PRN Q4HRS PRN 30 05/01/21 Rx Levofloxacin 750 Mg Tablet 1 Tab PO DAILY 5 05/01/21 Rx Seroquel (Quetiapine Fumarate) 25 Mg Tablet 25 Mg PO BID 04/26/21 Reported Mysoline (Primidone) 50 Mg Tablet 50 Mg PO DAILY 04/26/21 Reported Escitalopram Oxalate 20 Mg Tablet 20 Mg PO DAILY 03/26/21 Reported Omeprazole 20 Mg Capsule.dr 20 Mg PO DAILY 03/26/21 Reported Eliquis (Apixaban) 5 Mg Tablet 5 Mg PO BID 03/26/21 Reported Lasix (Furosemide) 40 Mg Tablet 40 Mg PO DAILY 03/26/21 Reported Impression . 1. Acute hypoxic respiratory failure secondary to likely hypoxic respiratory arrest leading to cardiac arrest.This is her second intubation in a week, . H/o tracheostomy 2. The patient with underlying history of COVID-19 viral pneumonia in late November and early December, had a trach, decannulated.. She required another hospitalization few weeks ago with respiratory failure, but was successfully extubated. April 27, 2021 3. Status post tracheostomy followed by decannulation.. November, December, [address] [facility] [address] revealed no tracheal stenosis, 05/07 5. Underlying obesity. 6. Chronic interstitial lung disease 7. History of bleeding around trach 8. Anemia 9. Left upper extremity weakness. ct head neg 10. Hypotension, possibly related to sedation 11. Hypokalemia. Page of Plan . Updated 05/25 Appreciate cardiac input, off of Eliquis for now Monitor H&H Haldol scheduled Discontinue sedation Pressure support throughout the day as tolerated Discussed with psychosocial rehabilitation counselor yesterday Pressure support throughout the day AC nightly Discussed with RN and RT KASHMIR BLISS MD May 25, 2021 07:34
[2021-05-25 07:39] LABS: HEMATOCRIT 25.7 % (36.0-47.0); HEMOGLOBIN 8.5 g/dL (12.0-15.5); RED BLOOD COUNT 2.88 x10^6/uL (3.50-5.40); RED CELL DISTRIBUTION WIDTH 15.2 % (11.5-14.5); WHITE BLOOD COUNT 8.9 x10^3/uL (4.0-11.0)
[2021-05-25 07:51] LABS: CALCIUM 8.4 mg/dL (8.5-10.1); CREATININE 0.7 mg/dL (0.6-1.0); GFR 84.5; POTASSIUM 3.5 mmol/L (3.5-5.1)
[2021-05-25] MEDS: PANTOPRAZOLE IV PUSH 40 MG VIAL. IVP SCH (08:41)
[2021-05-25] MEDS: FUROSEMIDE 40 MG/4 ML VIAL. IVP SCH ×2 (08:42→13:44)
[2021-05-25] MEDS: PRIMIDONE 50 MG TABLET PO SCH (08:42)
[2021-05-25] MEDS: QUEtiapine 25 MG TABLET. PO SCH ×2 (08:42→21:26)
[2021-05-25] MEDS: CITALOPRAM 20 MG TABLET. PO SCH (08:42)
[2021-05-25] MEDS: METOPROLOL TART IMMED RELEASE 50 MG TABLET. PO SCH ×2 (08:43→21:33)
[2021-05-25] MEDS: ELECTROLYTE (ICU) PROTOCOL. MC SCH (08:43)
[2021-05-25] MEDS ORDERED: POTASSIUM BICARB 20 MEQ EFFERVESCENT TABLET. PEG ONE ×2 (08:45→14:00)
--- NOTE | 2021-05-25 10:50 | PDOC ---
[facility] [facility] PROGRESS NOTE Date of Service DOS: DATE: 05/25/21 TIME: 10:47 Chief Complaint Chief Complaint Respiratory failure Status post tracheostomy Probable bacterial pneumonia Recent COVID-19 in November of last year Possible tracheal [place] CHF History of tracheostomy with decannulation Chronic anticoagulation with some hemoptysis Septic shock Lactic acidosis Acute hypoxic respiratory failure secondary to likely bacterial pneumonia versus viral pneumonia, septic shock, lactic acidosis consider LTAC placement, she is improving, History of Present Illness History of Present Illness 05/25, was on CPAP trial on 05/23 for 4 hours, on 05/24, she did a CPAP trial 03/25 50% and went 12 hours today we will do a CPAP trial at 40% with 03/25 and have same goal, much improvement over the past 3 days with CPAP she has been anxious, and req. benzo at times, limiting her breathing, cont tube feeds, has NG tube baltazar cath duet o weakness cont the ICU care 39 minutes today 05/24, cont current doing OK, CPAP trial, repeat from yesterday anxiety up 05/23, blood pressure has swung abotu 100 points since yesterday AM, will add BP meds, sedation was changed, cont urrent appears better, calm 05/22/2021 better and more calm today on seroquel bp better off haldol OK, still propfolol Patient seen and examined in the ICU She remains on the ventilator, on trach AC/20/45/35% with 5 of PEEP Satting 95% Tracheostomy intact Baltazar Has NG feeds SCDs in place She is sedated - opens eyes, does not really follow Vitals/I&O Vitals/I&O: Vital Signs Date Time Temp Pulse Resp B/P (MAP) Pulse Ox O2 Delivery O2 Flow Rate FiO2 05/25/21 10:00 76 22 95/53 97 Ventilator 05/25/21 08:00 98.9 98.9 05/24/21 20:18 98.0 I & O0 05/24/21 05/24/21 05/25/21 15:00 23:00 07:00 Intake Total 568 ml 519.7 ml 1179 ml Output Total 1975 ml 3000 ml 330 ml Balance -1407 ml -2480.3 ml 849 ml Physical Exam General: Cooperative, Other (Remains on a ventilator) Heart: Regular rate Lungs: Other (Decreased breath sounds) Abdomen: Normal bowel sounds Extremities: No clubbing, No cyanosis, Other (LUE is flaccid on exam, brisk reflex) Skin: No significant lesion Labs Labs: Laboratory Tests Test 05/24/21 21:43 05/25/21 07:26 Glucose (Fingerstick) 116 mg/dL (70-99) White Blood Count 8.9 x10^3/uL (4.0-11.0) Red Blood Count 2.88 x10^6/uL (3.50-5.40) Hemoglobin 8.5 g/dL (12.0-15.5) Hematocrit 25.7 % (36.0-47.0) Mean Corpuscular Volume 89 fL (79-100) Mean Corpuscular Hemoglobin 30 pg (25-35) Mean Corpuscular Hemoglobin Concent 33 g/dL (31-37) Red Cell Distribution Width 15.2 % (11.5-14.5) Platelet Count 429 x10^3/uL (140-400) Sodium Level 141 mmol/L (136-145) Potassium Level 3.5 mmol/L (3.5-5.1) Chloride Level 100 mmol/L (98-107) Carbon Dioxide Level 37 mmol/L (21-32) Anion Gap 4 (6-14) Blood Urea Nitrogen 17 mg/dL (7-20) Creatinine 0.7 mg/dL (0.6-1.0) Estimated GFR (Cockcroft-Gault) 84.5 Glucose Level 101 mg/dL (70-99) Calcium Level 8.4 mg/dL (8.5-10.1) Magnesium Level 2.0 mg/dL (1.8-2.4) Assessment and Plan Assessmemt and Plan Problems Medical Problems: (1) Cardiac arrest Status: Acute (2) Hypokalemia Status: Acute (3) Lactic acidosis Status: Acute (4) Pneumonia Status: Acute (5) Respiratory failure, acute Status: Acute (6) Septic shock Status: Acute Comment Review of Relevant I have reviewed the following items davina (where applicable) has been applied. Medications: Current Medications Medications (Trade) Dose Ordered Sig/Qing Route PRN Reason Start Time Stop Time Status Last Admin Dose Admin Potassium Bicarbonate (Potassium Effervescent Tablet) 40 meq 1X ONCE PEG 05/24/21 14:30 05/24/21 14:31 DC 05/24/21 14:33 Haloperidol Lactate (Haldol Inj) 5 mg Q8HRS IVP 05/24/21 11:45 05/25/21 06:07 Potassium Bicarbonate (Potassium Effervescent Tablet) 40 meq 1X ONCE PEG 05/25/21 08:45 05/25/21 08:47 DC 05/25/21 09:03 Justifications for Admission Other Justification RAMESH BARDALES MD May 25, 2021 10:50
--- NOTE | 2021-05-25 14:19 | PDOC ---
PROGRESS NOTES Date of Service DATE: 05/25/21 TIME: 14:16 Subjective Subjective Patient seen and examined Objective Objective Vital Signs Date Time Temp Pulse Resp B/P (MAP) Pulse Ox O2 Delivery O2 Flow Rate FiO2 05/25/21 13:00 65 24 86/44 100 Ventilator 05/25/21 12:00 99.0 99.0 05/24/21 20:18 98.0 Intake and Output 05/25/21 07:00 Intake Total 2266.7 ml Output Total 5305 ml Balance -3038.3 ml IV Total 223.7 ml Tube Feeding 1583 ml Other 460 ml Output Urine Total 5305 ml Gastric Drainage Total 0 ml Physical Exam Abdomen: Normal bowel sounds Heart: Regular rate General: Other (Remains on a ventilator.) Lungs: Other (Mildly decreased breath sounds) Assessment Assessment Problems Medical Problems: (1) Cardiac arrest Status: Acute (2) Hypokalemia Status: Acute (3) Lactic acidosis Status: Acute (4) Pneumonia Status: Acute (5) Respiratory failure, acute Status: Acute (6) Septic shock Status: Acute 1. Out of hospital acute cardiopulmonary arrest. Significant downtime. The patient remains on a ventilator. Rhythm stable. Echo from 05-15-20 showed an ejection fraction of 65% with moderate tricuspid regurgitation and a PAP of 50 to 52 mmHg. Continue supportive treatment and antibiotics. Possible placement. 2. Respiratory failure. Redo of tracheostomy. Followed by the pulmonary service. 3. Recent treatment with Eliquis. I can find no history of atrial fibrillation or other indications for chronic anticoagulation. Holding Eliquis. Monitoring lab. 4. Anemia. Initial H&H of 6.5 and 19.4. 5. Hypokalemia. Morning potassium level of 3.5. Creatinine stable at 0.7. Comment Review of Relevant I have reviewed the following items davina (where applicable) has been applied. Labs Laboratory Tests Test 05/24/21 05:30 05/24/21 21:43 05/25/21 07:26 White Blood Count 10.0 x10^3/uL (4.0-11.0) 8.9 x10^3/uL (4.0-11.0) Red Blood Count 2.84 x10^6/uL (3.50-5.40) 2.88 x10^6/uL (3.50-5.40) Hemoglobin 8.3 g/dL (12.0-15.5) 8.5 g/dL (12.0-15.5) Hematocrit 25.2 % (36.0-47.0) 25.7 % (36.0-47.0) Mean Corpuscular Volume 89 fL (79-100) 89 fL (79-100) Mean Corpuscular Hemoglobin 29 pg (25-35) 30 pg (25-35) Mean Corpuscular Hemoglobin Concent 33 g/dL (31-37) 33 g/dL (31-37) Red Cell Distribution Width 15.2 % (11.5-14.5) 15.2 % (11.5-14.5) Platelet Count 395 x10^3/uL (140-400) 429 x10^3/uL (140-400) Neutrophils (%) (Auto) 69 % (31-73) Lymphocytes (%) (Auto) 19 % (24-48) Monocytes (%) (Auto) 7 % (0-9) Eosinophils (%) (Auto) 5 % (0-3) Basophils (%) (Auto) 1 % (0-3) Neutrophils # (Auto) 6.9 x10^3/uL (1.8-7.7) Lymphocytes # (Auto) 1.9 x10^3/uL (1.0-4.8) Monocytes # (Auto) 0.7 x10^3/uL (0.0-1.1) Eosinophils # (Auto) 0.5 x10^3/uL (0.0-0.7) Basophils # (Auto) 0.1 x10^3/uL (0.0-0.2) Sodium Level 139 mmol/L (136-145) 141 mmol/L (136-145) Potassium Level 3.4 mmol/L (3.5-5.1) 3.5 mmol/L (3.5-5.1) Chloride Level 100 mmol/L (98-107) 100 mmol/L (98-107) Carbon Dioxide Level 31 mmol/L (21-32) 37 mmol/L (21-32) Anion Gap 8 (6-14) 4 (6-14) Blood Urea Nitrogen 15 mg/dL (7-20) 17 mg/dL (7-20) Creatinine 0.6 mg/dL (0.6-1.0) 0.7 mg/dL (0.6-1.0) Estimated GFR (Cockcroft-Gault) 101.0 84.5 BUN/Creatinine Ratio 25 (6-20) Glucose Level 110 mg/dL (70-99) 101 mg/dL (70-99) Calcium Level 8.5 mg/dL (8.5-10.1) 8.4 mg/dL (8.5-10.1) Total Bilirubin 0.5 mg/dL (0.2-1.0) Aspartate Amino Transf (AST/SGOT) 25 U/L (15-37) Alanine Aminotransferase (ALT/SGPT) 32 U/L (14-59) Alkaline Phosphatase 165 U/L (46-116) Total Protein 6.4 g/dL (6.4-8.2) Albumin 2.7 g/dL (3.4-5.0) Albumin/Globulin Ratio 0.7 (1.0-1.7) Glucose (Fingerstick) 116 mg/dL (70-99) Magnesium Level 2.0 mg/dL (1.8-2.4) Laboratory Tests Test 05/24/21 21:43 05/25/21 07:26 Glucose (Fingerstick) 116 mg/dL (70-99) White Blood Count 8.9 x10^3/uL (4.0-11.0) Red Blood Count 2.88 x10^6/uL (3.50-5.40) Hemoglobin 8.5 g/dL (12.0-15.5) Hematocrit 25.7 % (36.0-47.0) Mean Corpuscular Volume 89 fL (79-100) Mean Corpuscular Hemoglobin 30 pg (25-35) Mean Corpuscular Hemoglobin Concent 33 g/dL (31-37) Red Cell Distribution Width 15.2 % (11.5-14.5) Platelet Count 429 x10^3/uL (140-400) Sodium Level 141 mmol/L (136-145) Potassium Level 3.5 mmol/L (3.5-5.1) Chloride Level 100 mmol/L (98-107) Carbon Dioxide Level 37 mmol/L (21-32) Anion Gap 4 (6-14) Blood Urea Nitrogen 17 mg/dL (7-20) Creatinine 0.7 mg/dL (0.6-1.0) Estimated GFR (Cockcroft-Gault) 84.5 Glucose Level 101 mg/dL (70-99) Calcium Level 8.4 mg/dL (8.5-10.1) Magnesium Level 2.0 mg/dL (1.8-2.4) Microbiology 05/18/21 Aerobic Culture - Final, Complete 05/03/21 Blood Culture - Final, Complete NO GROWTH AFTER 5 DAYS Medications Current Medications Propofol 100 ml @ As Directed STK-MED ONCE IV ; Start 05/03/21 at 10:43; Stop 05/03/21 at 10:43; Status DC Norepinephrine Bitartrate 8 mg/ Dextrose 258 ml @ 19.35 mls/ hr 1X ONCE IV Last administered on 05/03/21at 11:20; Start 05/03/21 at 11:15; Stop 05/04/21 at 00:34; Status DC Propofol (Diprivan) 200 mg TITRATE ONCE IV ; Start 05/03/21 at 11:45; Stop 05/03/21 at 11:46; Status UNV Propofol 100 ml @ 3 mls/hr CONT PRN IV PER PROTOCOL Last administered on 05/03/21at 10:50; Start 05/03/21 at 11:45; Stop 05/03/21 at 12:49; Status DC Cefepime HCl (Maxipime) 2 gm 1X ONCE IVP Last administered on 05/03/21at 11:45; Start 05/03/21 at 11:45; Stop 05/03/21 at 11:46; Status DC Vancomycin HCl 1.5 gm/Sodium Chloride 500 ml @ 250 mls/hr 1X ONCE IV ; Start 05/03/21 at 11:45; Stop 05/03/21 at 13:44; Status UNV Sodium Chloride 1,000 ml @ 1,000 mls/hr 1X ONCE IV Last administered on 05/03/21at 10:50; Start 05/03/21 at 11:45; Stop 05/03/21 at 12:44; Status DC Sodium Chloride 1,000 ml @ 1,000 mls/hr 1X ONCE IV Last administered on 05/03/21at 11:00; Start 05/03/21 at 11:45; Stop 05/03/21 at 12:44; Status DC Sodium Chloride 1,000 ml @ 250 mls/hr Q4H IV Last administered on 05/04/21at 03:45; Start 05/03/21 at 11:45; Stop 05/04/21 at 11:44; Status DC Vancomycin HCl 2 gm/Sodium Chloride 500 ml @ 250 mls/hr 1X ONCE IV Last administered on 05/03/21at 12:00; Start 05/03/21 at 12:00; Stop 05/03/21 at 13:59; Status DC Potassium Bicarbonate (Potassium Effervescent Tablet) 40 meq 1X ONCE NG Last administered on 05/03/21at 15:01; Start 05/03/21 at 12:00; Stop 05/03/21 at 12:01; Status DC Potassium Chloride/Water 100 ml @ 100 mls/hr Q1H IV ; Start 05/03/21 at 12:00; Stop 05/03/21 at 12:04; Status DC Apixaban (Eliquis) 5 mg BID PO ; Start 05/03/21 at 21:00; Stop 05/03/21 at 15:54; Status DC Primidone (Mysoline) 50 mg DAILY PO Last administered on 05/25/21at 08:42; Start 05/04/21 at 09:00 Quetiapine Fumarate (SEROquel) 25 mg BID PO Last administered on 05/19/21at 20:49; Start 05/03/21 at 21:00; Stop 05/20/21 at 09:09; Status DC Citalopram Hydrobromide (CeleXA) 20 mg DAILY PO Last administered on 05/25/21at 08:42; Start 05/04/21 at 09:00 Pantoprazole Sodium (PROTONIX VIAL for IV PUSH) 40 mg DAILYAC IVP Last administered on 05/25/21at 08:41; Start 05/04/21 at 07:30 Potassium Chloride/Water 100 ml @ 100 mls/hr Q1H IV Last administered on 05/03/21at 13:43; Start 05/03/21 at 12:00; Stop 05/03/21 at 13:59; Status DC Magnesium Sulfate 50 ml @ 25 mls/hr 1X ONCE IV Last administered on 05/03/21at 15:00; Start 05/03/21 at 12:00; Stop 05/03/21 at 13:59; Status DC Ondansetron HCl (Zofran) 4 mg PRN Q6HRS PRN IVP NAUSEA/VOMITING; Start 05/03/21 at 12:00 Calcium Carbonate/ Glycine (Tums) 500 mg PRN Q3HRS PRN PO HEARTBURN / GAS; Start 05/03/21 at 12:00 Info (Icu Electrolyte Protocol) 1 ea DAILY MC Last administered on 05/25/21at 08:43; Start 05/04/21 at 09:00 Sodium Chloride (Normal Saline Flush) 3 ml QSHIFT PRN IV AFTER MEDS AND BLOOD DRAWS; Start 05/03/21 at 12:00 Potassium Chloride/Water 100 ml @ 100 mls/hr Q1H IV Last administered on 05/03/21at 15:57; Start 05/03/21 at 14:00; Stop 05/03/21 at 15:59; Status DC Fentanyl Citrate 30 ml @ 2.5 mls/hr CONT PRN IV SEE PROTOCOL Last administered on 05/08/21at 06:54; Start 05/03/21 at 12:45; Stop 05/15/21 at 07:41; Status DC Midazolam HCl 100 ml @ 1 mls/hr CONT PRN IV SEE PROTOCOL Last administered on 05/18/21at 08:14; Start 05/03/21 at 12:45 Propofol 100 ml @ 3 mls/hr CONT PRN IV PER PROTOCOL Last administered on 05/24/21at 21:40; Start 05/03/21 at 12:45 Vecuronium Hobbs (Norcuron Bolus) 6 mg PRN 1X PRN IV VENT INDUCTION; Start 05/03/21 at 12:45; Stop 05/04/21 at 12:44; Status DC Dexmedetomidine HCl 400 mcg/ Sodium Chloride 100 ml @ 7,500 mls/hr CONT PRN IV PER PROTOCOL Last administered on 05/09/21at 10:42; Start 05/03/21 at 12:45; Stop 05/09/21 at 10:49; Status DC Iohexol (Omnipaque 350 Mg/ml) 100 ml 1X ONCE IV Last administered on 05/03/21at 12:58; Start 05/03/21 at 13:00; Stop 05/03/21 at 13:01; Status DC Info (CONTRAST GIVEN -- Rx MONITORING) 1 each PRN DAILY PRN MC SEE COMMENTS; Start 05/03/21 at 13:00; Stop 05/05/21 at 12:59; Status DC Piperacillin Sod/ Tazobactam Sod (Zosyn Per Pharmacy) 1 each PRN DAILY PRN MC SEE COMMENTS; Start 05/03/21 at 15:15; Stop 05/03/21 at 15:07; Status DC Vancomycin HCl (Vanco Per Pharmacy) 1 each PRN DAILY PRN MC SEE COMMENTS Last administered on 05/11/21at 09:00; Start 05/03/21 at 15:15; Stop 05/11/21 at 14:19; Status DC Cefepime HCl (Maxipime) 1 gm Q8HRS IVP ; Start 05/03/21 at 15:30; Status Cancel Insulin Human Lispro (HumaLOG) 0-7 UNITS TIDWMEALS SQ ; Start 05/03/21 at 17:00; Stop 05/07/21 at 07:52; Status DC Dextrose (Dextrose 50%-Water Syringe) 12.5 gm PRN Q15MIN PRN IV SEE COMMENTS; Start 05/03/21 at 15:15; Stop 05/07/21 at 07:53; Status DC Cefepime HCl (Maxipime) 1 gm Q8HRS IVP Last administered on 05/14/21at 14:23; Start 05/03/21 at 22:00; Stop 05/14/21 at 14:49; Status DC Methylprednisolone Sodium Succinate (SOLU-Medrol 125MG VIAL) 125 mg 1X ONCE IV Last administered on 05/03/21at 15:56; Start 05/03/21 at 15:30; Stop 05/03/21 at 15:31; Status DC Vancomycin HCl 1 gm/Sodium Chloride 250 ml @ 250 mls/hr Q12H IV Last administered on 05/10/21at 00:06; Start 05/04/21 at 00:00; Stop 05/10/21 at 10:46; Status DC Vancomycin HCl (Vancomycin Trough Level) 1 each 1X ONCE MC ; Start 05/04/21 at 23:30; Stop 05/04/21 at 23:31; Status DC Potassium Chloride/Water 100 ml @ 100 mls/hr Q1H IV Last administered on at 09:38; Start 05/04/21 at 08:00; Stop 05/04/21 at 09:59; Status DC Calcium Chloride (Calcium Chloride) 1,000 mg STK-MED ONCE .ROUTE ; Start 05/03/21 at 11:00; Stop 05/04/21 at 12:23; Status DC Sodium Bicarbonate (Sodium Bicarb Adult 8.4% Syr) 50 meq STK-MED ONCE .ROUTE ; Start 05/03/21 at 11:00; Stop 05/04/21 at 12:23; Status DC Epinephrine HCl (EPINEPHrine SYRINGE) 3 mg STK-MED ONCE .ROUTE ; Start 05/03/21 at 11:00; Stop 05/04/21 at 12:23; Status DC Potassium Chloride/Water 100 ml @ 100 mls/hr Q1H IV Last administered on 05/05/21at 12:19; Start 05/05/21 at 09:00; Stop 05/05/21 at 12:59; Status DC Potassium Chloride/Water 100 ml @ 100 mls/hr Q1H IV Last administered on 05/06/21at 11:05; Start 05/06/21 at 10:00; Stop 05/06/21 at 11:59; Status DC Insulin Human Lispro (HumaLOG) 0-7 UNITS Q6HRS SQ ; Start 05/07/21 at 12:00; Stop 05/10/21 at 11:00; Status DC Dextrose (Dextrose 50%-Water Syringe) 12.5 gm PRN Q15MIN PRN IV SEE COMMENTS; Start 05/07/21 at 08:00 Norepinephrine Bitartrate 8 mg/ Dextrose 258 ml @ 21.672 mls/ hr CONT PRN IV PER PROTOCOL Last administered on 05/20/21at 23:15; Start 05/07/21 at 11:30 Vancomycin HCl (Vancomycin Trough Level) 1 each 1X ONCE MC ; Start 05/09/21 at 11:30; Stop 05/09/21 at 11:31; Status DC Metoprolol Tartrate (Lopressor Vial) 5 mg PRN Q6HRS PRN IVP HYPERTENSION Last administered on 05/23/21at 05:55; Start 05/09/21 at 03:45 Scopolamine (Transderm-Scop) 1 patch Q3DAYS TD Last administered on 05/24/21at 08:40; Start 05/09/21 at 10:00 Dexmedetomidine HCl 400 mcg/ Sodium Chloride 100 ml @ 7,500 mls/hr CONT PRN IV PER PROTOCOL; Start 05/09/21 at 11:00; Stop 05/09/21 at 10:56; Status DC Dexmedetomidine HCl 400 mcg/ Sodium Chloride 100 ml @ 5 mls/hr CONT PRN IV PER PROTOCOL Last administered on 05/15/21at 21:21; Start 05/09/21 at 11:00; Stop 05/16/21 at 10:39; Status DC Potassium Bicarbonate (Potassium Effervescent Tablet) 20 meq 1X ONCE PEG Last administered on 05/09/21at 13:56; Start 05/09/21 at 14:00; Stop 05/09/21 at 14:01; Status DC Potassium Bicarbonate (Potassium Effervescent Tablet) 40 meq 1X ONCE PEG Last administered on 05/10/21at 10:23; Start 05/10/21 at 10:00; Stop 05/10/21 at 1 0:01; Status DC Vancomycin HCl 1.25 gm/Sodium Chloride 250 ml @ 167 mls/hr Q12H IV Last administered on 05/11/21at 11:34; Start 05/10/21 at 12:00; Stop 05/11/21 at 14:19; Status DC Potassium Bicarbonate (Potassium Effervescent Tablet) 40 meq 1X ONCE PO Last administered on 05/11/21at 10:55; Start 05/11/21 at 08:30; Stop 05/11/21 at 08:31; Status DC Midazolam HCl (Versed) 5 mg 1X ONCE IVP Last administered on 05/11/21at 11:34; Start 05/11/21 at 11:30; Stop 05/11/21 at 11:32; Status DC Potassium Chloride/Water 100 ml @ 100 mls/hr Q1H IV Last administered on 05/13/21at 10:23; Start 05/13/21 at 08:30; Stop 05/13/21 at 10:29; Status DC Fentanyl Citrate (Fentanyl 2ml Vial) 25 mcg PRN Q5MIN PRN IVP MILD PAIN 1-3; Start 05/15/21 at 06:00; Stop 05/15/21 at 20:00; Status DC Fentanyl Citrate (Fentanyl 2ml Vial) 50 mcg PRN Q5MIN PRN IVP MODERATE PAIN 4- 6; Start 05/15/21 at 06:00; Stop 05/15/21 at 20:00; Status DC Morphine Sulfate (Morphine Sulfate) 1 mg PRN Q10MIN PRN IVP SEVERE PAIN 7-10; Start 05/15/21 at 06:00; Stop 05/15/21 at 20:00; Status DC Ringer's Solution 1,000 ml @ 30 mls/hr Q24H IV Last administered on 05/15/21at 03:50; Start 05/15/21 at 06:00; Stop 05/15/21 at 17:59; Status DC Hydromorphone HCl (Dilaudid) 0.5 mg PRN Q10MIN PRN IVP SEVERE PAIN 7-10, 2nd CHOICE; Start 05/15/21 at 06:00; Stop 05/15/21 at 20:00; Status DC Prochlorperazine Edisylate (Compazine) 5 mg PACU PRN PRN IVP NAUSEA, MRX1; Start 05/15/21 at 06:00; Stop 05/15/21 at 20:00; Status DC Fentanyl Citrate 55 ml @ 1 mls/hr CONT PRN PRN IV SEE PROTOCOL Last administered on 05/24/21at 20:18; Start 05/15/21 at 07:45 Perflutren Protein Type A Microsphe (Optison) 0.66 mg 1X ONCE IV ; Start 05/15/21 at 07:45; Stop 05/15/21 at 07:46; Status DC Midazolam HCl (Versed) 5 mg 1X ONCE IVP Last administered on 05/15/21at 09:20; Start 05/15/21 at 09:15; Stop 05/15/21 at 09:16; Status DC Bupivacaine HCl/ Epinephrine Bitart (Sensorcain-Epi 0.5% Kit) 30 ml STK-MED ONCE INJ Last administered on 05/15/21at 09:49; Start 05/15/21 at 09:49; Stop 05/15 at 10:12; Status DC Cellulose (Surgicel Fibrillar 1x2) 1 each STK-MED ONCE TP Last administered on 05/15/21at 09:49; Start 05/15/21 at 09:49; Stop 05/15/21 at 10:12; Status DC Cellulose (Surgicel Hemostat 2x14) 1 each STK-MED ONCE SURGSITE Last admi nistered on 05/15/21at 09:49; Start 05/15/21 at 09:49; Stop 05/15/21 at 10:12; Status DC Perflutren Protein Type A Microsphe (Optison) 0.66 mg STK-MED ONCE IV ; Start 05/15/21 at 07:00; Stop 05/15/21 at 13:03; Status DC Midazolam HCl (Versed) 5 mg STK-MED ONCE .ROUTE ; Start 05/11/21 at 11:32; Stop 05/15/21 at 13:06; Status DC Perflutren Protein Type A Microsphe (Optison) 0.66 mg STK-MED ONCE IV ; Start 05/15/21 at 06:29; Stop 05/15/21 at 13:44; Status DC Rocuronium Hobbs (Zemuron) 100 mg STK-MED ONCE .ROUTE ; Start 05/15/21 at 08:39; Stop 05/15/21 at 13:48; Status DC Fentanyl Citrate (Fentanyl 2ml Vial) 100 mcg STK-MED ONCE .ROUTE ; Start 05/15/21 at 08:39; Stop 05/15/21 at 13:48; Status DC Cellulose (Surgicel Fibrillar 1x2) 1 each STK-MED ONCE .ROUTE ; Start 05/15/21 at 08:42; Stop 05/15/21 at 13:48; Status DC Bupivacaine HCl/ Epinephrine Bitart (Sensorcain-Epi 0.5% Kit) 30 ml STK-MED ONCE .ROUTE ; Start 05/15/21 at 08:43; Stop 05/15/21 at 13:48; Status DC Epinephrine HCl (Adrenalin) 1 mg STK-MED ONCE .ROUTE ; Start 05/15/21 at 08:43; Stop 05/15/21 at 13:48; Status DC Midazolam HCl (Versed) 5 mg STK-MED ONCE .ROUTE ; Start 05/15/21 at 09:09; Stop 05/15/21 at 13:49; Status DC Rocuronium Hobbs (Zemuron) 50 mg STK-MED ONCE .ROUTE ; Start 05/15/21 at 09:49; Stop 05/15/21 at 13:49; Status DC Cellulose (Surgicel Hemostat 2x14) 1 each STK-MED ONCE .ROUTE ; Start 05/15/21 at 10:00; Stop 05/15/21 at 13:50; Status DC Perflutren Protein Type A Microsphe (Optison) 0.66 mg 1X ONCE IV Last administered on 05/15/21at 15:03; Start 05/15/21 at 15:15; Stop 05/15/21 at 15:16; Status DC Heparin Sodium (Porcine) (Heparin Sodium) 5,000 unit Q8HRS SQ Last administered on 05/25/21at 13:44; Start 05/16/21 at 14:00 Potassium Chloride/Water 100 ml @ 100 mls/hr Q1H IV Last administered on 05/17/21at 14:09; Start 05/17/21 at 11:00; Stop 05/17/21 at 13:59; Status DC Potassium Bicarbonate (Potassium Effervescent Tablet) 40 meq 1X ONCE PO Last administered on 05/18/21at 08:06; Start 05/18/21 at 07:45; Stop 05/18/21 at 07:46 ; Status DC Ringer's Solution 1,000 ml @ 1,000 mls/hr 1X ONCE IV Last administered on 05/19/21at 08:42; Start 05/19/21 at 08:45; Stop 05/19/21 at 09:44; Status DC Ringer's Solution 1,000 ml @ 75 mls/hr [id number] IV Last administered on 05/20/21at 19:38; Start 05/19/21 at 11:30; Stop 05/21/21 at 12:08; Status DC Dexmedetomidine HCl 400 mcg/ Sodium Chloride 100 ml @ 5.85 mls/hr CONT PRN IV PER PROTOCOL Last administered on 05/20/21at 19:17; Start 05/19/21 at 11:30 Sodium Chloride 500 ml @ 500 mls/hr 1X PRN PRN IV SEE COMMENTS Last administered on 05/19/21at 19:50; Start 05/19/21 at 11:30 Atropine Sulfate (ATROPINE 0.5mg SYRINGE) 0.5 mg PRN Q5MIN PRN IV SEE COMMENTS; Start 05/19/21 at 11:30 Haloperidol Lactate (Haldol Inj) 5 mg Q8HRS IVP Last administered on 05/21/21at 05:49; Start 05/20/21 at 09:15; Stop 05/21/21 at 08:47; Status DC Furosemide (Lasix) 40 mg [id number] IVP Last administered on 05/25/21at 13:44; Start 05/20/21 at 14:00 Potassium Chloride (Klor-Con) 40 meq 1X ONCE PO Last administered on 05/21/21at 09:08; Start 05/21/21 at 08:45; Stop 05/21/21 at 08:46; Status DC Haloperidol Lactate (Haldol Inj) 5 mg PRN Q8HRS PRN IVP agitation; Start 05/21/21 at 08:45; Stop 05/24/21 at 11:32; Status DC Quetiapine Fumarate (SEROquel) 25 mg BID PO Last administered on 05/25/21at 08:42; Start 05/21/21 at 09:00 Potassium Bicarbonate (Potassium Effervescent Tablet) 40 meq 1X ONCE PEG Last administered on 05/21/21at 09:30; Start 05/21/21 at 09:30; Stop 05/21/21 at 09:31; Status DC Sodium Chloride 1,000 ml @ 75 mls/hr [id number] IV Last administered on 05/23/21at 05:25; Start 05/21/21 at 12:15; Stop 05/24/21 at 10:24; Status DC Potassium Chloride (Klor-Con) 40 meq 1X ONCE PO ; Start 05/22/21 at 08:30; Stop 05/22/21 at 08:47; Status DC Potassium Chloride (Klor-Con) 40 meq Q2H PO ; Start 05/22/21 at 08:30; Stop 05/22/21 at 08:47; Status DC Magnesium Sulfate 50 ml @ 25 mls/hr 1X ONCE IV Last administered on 05/22/21at 09:37; Start 05/22/21 at 08:30; Stop 05/22/21 at 10:29; Status DC Potassium Bicarbonate (Potassium Effervescent Tablet) 40 meq 1X ONCE PEG Last administered on 05/22/21at 09:36; Start 05/22/21 at 08:30; Stop 05/22/21 at 08:36; Status DC Potassium Bicarbonate (Potassium Effervescent Tablet) 40 meq 1X ONCE PO Last administered on 05/22/21at 10:41; Start 05/22/21 at 10:30; Stop 05/22/21 at 10:31; Status DC Metoprolol Tartrate (Lopressor) 50 mg BID PO Last administered on 05/25/21 08:43; Start 05/23/21 at 09:00 Hydralazine HCl (Apresoline Inj) 10 mg PRN Q4HRS PRN IVP ELEVATED BP, SEE COMMENTS Last administered on 05/23/21at 09:03; Start 05/23/21 at 09:00 Potassium Bicarbonate (Potassium Effervescent Tablet) 60 meq 1X ONCE PO Last administered on 05/23/21 11:45; Start 05/23/21 at 11:00; Stop 05/23/21 at 11:01; Status DC Potassium Bicarbonate (Potassium Effervescent Tablet) 40 meq 1X ONCE PEG Last administered on 05/24/21 11:16; Start 05/24/21 at 10:30; Stop 05/24/21 at 10:32; Status DC Potassium Bicarbonate (Potassium Effervescent Tablet) 40 meq 1X ONCE PEG Last administered on 05/24/21at 14:33; Start 05/24/21 at 14:30; Stop 05/24/21 at 14:31; Status DC Haloperidol Lactate (Haldol Inj) 5 mg Q8HRS IVP Last administered on 05/25/21 13:44; Start 05/24/21 at 11:45 Potassium Bicarbonate (Potassium Effervescent Tablet) 40 meq 1X ONCE PEG Last administered on 05/25/21 09:03; Start 05/25/21 at 08:45; Stop 05/25/21 at 08:47; Status DC Potassium Bicarbonate (Potassium Effervescent Tablet) 40 meq 1X ONCE PEG Last administered on 05/25/21 13:46; Start 05/25/21 at 14:00; Stop 05/25/21 at 14:01; Status DC Active Scripts Active Easy Neb Compressor Nebulizer (Nebulizer and Compressor) 1 Each Each Each MC PRN PRN Use with albuterol as needed every 4 hours Albuterol Sulfate Neb Soln (Albuterol Sulfate) 2.5 Mg/3 Ml Vial.neb 1 Vial NEB PRN Q4HRS PRN 30 Days Levofloxacin 750 Mg Tablet 1 Tab PO DAILY 5 Days Reported Seroquel (Quetiapine Fumarate) 25 Mg Tablet 25 Mg PO BID Mysoline (Primidone) 50 Mg Tablet 50 Mg PO DAILY Escitalopram Oxalate 20 Mg Tablet 20 Mg PO DAILY Omeprazole 20 Mg Capsule.dr 20 Mg PO DAILY Eliquis (Apixaban) 5 Mg Tablet 5 Mg PO BID Lasix (Furosemide) 40 Mg Tablet 40 Mg PO DAILY Vitals/I & O Vital Sign - Last 24 Hours 05/24/21 05/24/21 05/24/21 05/24/21 15:00 16:00 16:09 17:00 Temp 98.7 98.7 Pulse 98 96 98 Resp 18 26 B/P (MAP) 128/60 143/79 139/65 Pulse Ox 99 99 99 99 O2 Delivery Ventilator Ventilator Ventilator Ventilator 05/24/21 05/24/21 05/24/21 05/24/21 18:00 19:00 19:57 20:00 Temp 99.3 99.3 Pulse 62 86 107 Resp 28 B/P (MAP) 119/57 146/66 153/66 Pulse Ox 99 99 99 99 O2 Delivery Ventilator Ventilator Ventilator Ventilator 05/24/21 05/24/21 05/24/21 05/24/21 20:00 20:18 20:19 20:48 Resp 20 20 Pulse Ox 99 99 98 O2 Delivery Mechanical Ventilator Ventilator Ventilator Ventilator O2 Flow Rate 98.0 05/24/21 05/24/21 05/24/21 05/24/21 21:00 21:09 22:00 23:00 Pulse 104 104 58 58 Resp 20 20 B/P (MAP) 167/76 167/76 97/56 105/48 Pulse Ox 99 100 100 O2 Delivery Ventilator Ventilator Ventilator 05/24/21 05/25/21 05/25/21 05/25/21 23:59 00:18 01:00 02:00 Temp 98.8 98.8 Pulse 95 96 90 Resp 20 B/P (MAP) 130/72 141/67 137/82 Pulse Ox 98 99 98 98 O2 Delivery Ventilator Ventilator Ventilator Ventilator 05/25/21 05/25/21 05/25/21 05/25/21 03:00 04:00 04:03 05:00 Temp 99.3 99.3 Pulse 92 78 63 Resp 22 20 20 B/P (MAP) 154/77 152/62 98/45 Pulse Ox 98 98 100 100 O2 Delivery Ventilator Ventilator Ventilator Ventilator 05/25/21 05/25/21 05/25/21 05/25/21 06:00 07:00 07:40 07:53 Pulse 62 60 Resp 20 20 B/P (MAP) 98/55 107/70 Pulse Ox 100 100 98 O2 Delivery Ventilator Ventilator Mechanical Ventilator Ventilator 05/25/21 05/25/21 05/25/21 05/25/21 08:00 08:43 09:00 10:00 Temp 98.9 98.9 Pulse 90 109 102 76 Resp 20 20 22 B/P (MAP) 117/50 117/50 132/62 95/53 Pulse Ox 98 96 97 O2 Delivery Ventilator Ventilator Ventilator 05/25/21 05/25/21 05/25/21 05/25/21 11:00 12:00 12:00 13:00 Temp 99.0 99.0 Pulse 73 96 65 Resp 24 24 B/P (MAP) 89/42 151/78 86/44 Pulse Ox 97 100 100 100 O2 Delivery Ventilator Ventilator Ventilator Ventilator Intake and Output 05/24/21 05/24/21 05/25/21 15:00 23:00 07:00 Intake Total 568 ml 519.7 ml 1179 ml Output Total 1975 ml 3000 ml 330 ml Balance -1407 ml -2480.3 ml 849 ml Justifications for Admission Other Justification YUDITH RANGEL MD May 25, 2021 14:19
--- NOTE | 2021-05-25 15:32 | NUR ---
SS following up with discharge planning. SS reviewed pt chart and discussed with pt RN. Pt is currently on the vent at 40%. COVID19 negative. Trach in place. Pt on CPAP weaning trial today. Pt accepted at [facility], ; fax [phone], pending insurance approval. Clinical updates phoned and faxed to [facility]. SS will continue to follow for discharge planning. Addendum: 05/25/21 at 1604 by ISHA MORGAN Insurance authorization received for LTACH from [employer]. Auth# [id number]. Per [facility], beds will be available over the weekend. Packet and ambulance form placed on the chart. Addendum: 05/25/21 at 1610 by ISHA MORGAN Pt's family notified.
[2021-05-26] VITALS (34 sets, daily range): BP systolic 57–178; BP diastolic 28–84
[2021-05-26] MEDS: DEXMEDETOMIDINE 400 MCG in IV NORMAL SALINE 100ML 96 ML IV PRN ×3 (01:49→17:31)
[2021-05-26 06:32] LABS: BASO % 0 % (0-3); EOS # 0.3 x10^3/uL (0.0-0.7); EOS % 4 % (0-3); HEMOGLOBIN 7.9 g/dL (12.0-15.5); LYMPH # 1.8 x10^3/uL (1.0-4.8); LYMPH % 23 % (24-48); MEAN CORPUSCULAR HEMOGLOBIN 29 pg (25-35); MEAN CORPUSCULAR HGB CONC 33 g/dL (31-37); MEAN CORPUSCULAR VOLUME 88 fL (79-100); MONO # 0.6 x10^3/uL (0.0-1.1); MONO % 7 % (0-9); NEUT # 5.2 x10^3/uL (1.8-7.7); NEUT % 65 % (31-73); PLATELET COUNT 352 x10^3/uL (140-400); RED BLOOD COUNT 2.72 x10^6/uL (3.50-5.40); RED CELL DISTRIBUTION WIDTH 14.9 % (11.5-14.5); WHITE BLOOD COUNT 7.9 x10^3/uL (4.0-11.0)
[2021-05-26 06:54] LABS: ALBUMIN 2.6 g/dL (3.4-5.0); ALBUMIN/GLOBULIN RATIO 0.8 (1.0-1.7); CALCIUM 8.5 mg/dL (8.5-10.1); CREATININE 0.7 mg/dL (0.6-1.0); GFR 84.5; POTASSIUM 3.6 mmol/L (3.5-5.1); TOTAL BILIRUBIN 0.4 mg/dL (0.2-1.0)
--- NOTE | 2021-05-26 07:18 | PDOC ---
PULMONARY PROGRESS NOTES DATE: 05/26/21 TIME: 07:17 Subjective Patient awake this morning, Sedated Tolerated pressure support yesterday, currently on 40% FiO2 5 of PEEP Vitals Vital Signs Date Time Temp Pulse Resp B/P (MAP) Pulse Ox O2 Delivery O2 Flow Rate FiO2 05/26/21 06:00 68 20 108/59 95 Ventilator 05/26/21 04:00 98.9 98.9 Lungs: Other (Decreased breath sounds) Cardiovascular: S1, S2 Extremities: Other (1+) Skin: No Rashes Labs Laboratory Tests Test 05/24/21 21:43 05/25/21 07:26 05/26/21 00:07 05/26/21 06:10 Glucose (Fingerstick) 116 mg/dL (70-99) 120 mg/dL (70-99) White Blood Count 8.9 x10^3/uL (4.0-11.0) 7.9 x10^3/uL (4.0-11.0) Red Blood Count 2.88 x10^6/uL (3.50-5.40) 2.72 x10^6/uL (3.50-5.40) Hemoglobin 8.5 g/dL (12.0-15.5) 7.9 g/dL (12.0-15.5) Hematocrit 25.7 % (36.0-47.0) 24.0 % (36.0-47.0) Mean Corpuscular Volume 89 fL (79-100) 88 fL (79-100) Mean Corpuscular Hemoglobin 30 pg (25-35) 29 pg (25-35) Mean Corpuscular Hemoglobin Concent 33 g/dL (31-37) 33 g/dL (31-37) Red Cell Distribution Width 15.2 % (11.5-14.5) 14.9 % (11.5-14.5) Platelet Count 429 x10^3/uL (140-400) 352 x10^3/uL (140-400) Sodium Level 141 mmol/L (136-145) 140 mmol/L (136-145) Potassium Level 3.5 mmol/L (3.5-5.1) 3.6 mmol/L (3.5-5.1) Chloride Level 100 mmol/L (98-107) 100 mmol/L (98-107) Carbon Dioxide Level 37 mmol/L (21-32) 33 mmol/L (21-32) Anion Gap 4 (6-14) 7 (6-14) Blood Urea Nitrogen 17 mg/dL (7-20) 21 mg/dL (7-20) Creatinine 0.7 mg/dL (0.6-1.0) 0.7 mg/dL (0.6-1.0) Estimated GFR (Cockcroft-Gault) 84.5 84.5 Glucose Level 101 mg/dL (70-99) 113 mg/dL (70-99) Calcium Level 8.4 mg/dL (8.5-10.1) 8.5 mg/dL (8.5-10.1) Magnesium Level 2.0 mg/dL (1.8-2.4) Neutrophils (%) (Auto) 65 % (31-73) Lymphocytes (%) (Auto) 23 % (24-48) Monocytes (%) (Auto) 7 % (0-9) Eosinophils (%) (Auto) 4 % (0-3) Basophils (%) (Auto) 0 % (0-3) Neutrophils # (Auto) 5.2 x10^3/uL (1.8-7.7) Lymphocytes # (Auto) 1.8 x10^3/uL (1.0-4.8) Monocytes # (Auto) 0.6 x10^3/uL (0.0-1.1) Eosinophils # (Auto) 0.3 x10^3/uL (0.0-0.7) Basophils # (Auto) 0.0 x10^3/uL (0.0-0.2) BUN/Creatinine Ratio 30 (6-20) Total Bilirubin 0.4 mg/dL (0.2-1.0) Aspartate Amino Transf (AST/SGOT) 18 U/L (15-37) Alanine Aminotransferase (ALT/SGPT) 23 U/L (14-59) Alkaline Phosphatase 125 U/L (46-116) Total Protein 6.0 g/dL (6.4-8.2) Albumin 2.6 g/dL (3.4-5.0) Albumin/Globulin Ratio 0.8 (1.0-1.7) Laboratory Tests Test 05/25/21 07:26 05/26/21 00:07 05/26/21 06:10 White Blood Count 8.9 x10^3/uL (4.0-11.0) 7.9 x10^3/uL (4.0-11.0) Red Blood Count 2.88 x10^6/uL (3.50-5.40) 2.72 x10^6/uL (3.50-5.40) Hemoglobin 8.5 g/dL (12.0-15.5) 7.9 g/dL (12.0-15.5) Hematocrit 25.7 % (36.0-47.0) 24.0 % (36.0-47.0) Mean Corpuscular Volume 89 fL (79-100) 88 fL (79-100) Mean Corpuscular Hemoglobin 30 pg (25-35) 29 pg (25-35) Mean Corpuscular Hemoglobin Concent 33 g/dL (31-37) 33 g/dL (31-37) Red Cell Distribution Width 15.2 % (11.5-14.5) 14.9 % (11.5-14.5) Platelet Count 429 x10^3/uL (140-400) 352 x10^3/uL (140-400) Sodium Level 141 mmol/L (136-145) 140 mmol/L (136-145) Potassium Level 3.5 mmol/L (3.5-5.1) 3.6 mmol/L (3.5-5.1) Chloride Level 100 mmol/L (98-107) 100 mmol/L (98-107) Carbon Dioxide Level 37 mmol/L (21-32) 33 mmol/L (21-32) Anion Gap 4 (6-14) 7 (6-14) Blood Urea Nitrogen 17 mg/dL (7-20) 21 mg/dL (7-20) Creatinine 0.7 mg/dL (0.6-1.0) 0.7 mg/dL (0.6-1.0) Estimated GFR (Cockcroft-Gault) 84.5 84.5 Glucose Level 101 mg/dL (70-99) 113 mg/dL (70-99) Calcium Level 8.4 mg/dL (8.5-10.1) 8.5 mg/dL (8.5-10.1) Magnesium Level 2.0 mg/dL (1.8-2.4) Glucose (Fingerstick) 120 mg/dL (70-99) Neutrophils (%) (Auto) 65 % (31-73) Lymphocytes (%) (Auto) 23 % (24-48) Monocytes (%) (Auto) 7 % (0-9) Eosinophils (%) (Auto) 4 % (0-3) Basophils (%) (Auto) 0 % (0-3) Neutrophils # (Auto) 5.2 x10^3/uL (1.8-7.7) Lymphocytes # (Auto) 1.8 x10^3/uL (1.0-4.8) Monocytes # (Auto) 0.6 x10^3/uL (0.0-1.1) Eosinophils # (Auto) 0.3 x10^3/uL (0.0-0.7) Basophils # (Auto) 0.0 x10^3/uL (0.0-0.2) BUN/Creatinine Ratio 30 (6-20) Total Bilirubin 0.4 mg/dL (0.2-1.0) Aspartate Amino Transf (AST/SGOT) 18 U/L (15-37) Alanine Aminotransferase (ALT/SGPT) 23 U/L (14-59) Alkaline Phosphatase 125 U/L (46-116) Total Protein 6.0 g/dL (6.4-8.2) Albumin 2.6 g/dL (3.4-5.0) Albumin/Globulin Ratio 0.8 (1.0-1.7) Medications Active Scripts Medications Dose Route/Sig Max Daily Dose Days Date Category Dose Instructions Easy Neb Compressor Nebulizer (Nebulizer and Compressor) 1 Each Each Each PRN PRN 05/01/21 Rx Use with albuterol as needed every 4 hours Albuterol Sulfate Neb Soln (Albuterol Sulfate) 2.5 Mg/3 Ml Vial.neb 1 Vial NEB PRN Q4HRS PRN 30 05/01/21 Rx Levofloxacin 750 Mg Tablet 1 Tab PO DAILY 5 05/01/21 Rx Seroquel (Quetiapine Fumarate) 25 Mg Tablet 25 Mg PO BID 04/26/21 Reported Mysoline (Primidone) 50 Mg Tablet 50 Mg PO DAILY 04/26/21 Reported Escitalopram Oxalate 20 Mg Tablet 20 Mg PO DAILY 03/26/21 Reported Omeprazole 20 Mg Capsule.dr 20 Mg PO DAILY 03/26/21 Reported Eliquis (Apixaban) 5 Mg Tablet 5 Mg PO BID 03/26/21 Reported Lasix (Furosemide) 40 Mg Tablet 40 Mg PO DAILY 03/26/21 Reported Impression . 1. Acute hypoxic respiratory failure secondary to likely hypoxic respiratory arrest leading to cardiac arrest.This is her second intubation in a week, . H/o tracheostomy 2. The patient with underlying history of COVID-19 viral pneumonia in late November and early December, had a trach, decannulated.. She required another hospitalization few weeks ago with respiratory failure, but was successfully extubated. April 27, 2021 3. Status post tracheostomy followed by decannulation.. November,December, [facility] 4. CT revealed no tracheal stenosis, 05/07 5. Underlying obesity. 6. Chronic interstitial lung disease 7. History of bleeding around trach 8. Anemia 9. Left upper extremity weakness. ct head neg 10. Hypotension, possibly related to sedation 11. Hypokalemia. Page of Plan . Updated 2 Continue pressure support throughout the day Appreciate cardiac input, off of Eliquis for now Monitor H&H Haldol scheduled Discontinue sedation Pressure support throughout the day as tolerated Discussed with health social work professor yesterday Pressure support throughout the day AC nightly Discussed with RN and RT KASHMIR BLISS MD May 26, 2021 07:18
[2021-05-26] MEDS: QUEtiapine 25 MG TABLET. PO SCH ×2 (08:33→21:28)
[2021-05-26] MEDS: PRIMIDONE 50 MG TABLET PO SCH (08:33)
[2021-05-26] MEDS: METOPROLOL TART IMMED RELEASE 50 MG TABLET. PO SCH (08:34)
[2021-05-26] MEDS: CITALOPRAM 20 MG TABLET. PO SCH (08:34)
[2021-05-26] MEDS: PANTOPRAZOLE IV PUSH 40 MG VIAL. IVP SCH (08:35)
[2021-05-26] MEDS: HALOPERIDOL LACTATE 5 MG/ML VIAL. IVP SCH ×3 (08:36→22:05)
[2021-05-26] MEDS: FUROSEMIDE 40 MG/4 ML VIAL. IVP SCH ×2 (08:36→12:22)
[2021-05-26] MEDS: HEPARIN for SUB-Q USE 5,000 UNIT/ML VIAL. SQ SCH ×3 (08:37→22:06)
[2021-05-26] MEDS: ELECTROLYTE (ICU) PROTOCOL. MC SCH (08:42)
--- NOTE | 2021-05-26 14:21 | PDOC ---
[employer] PROGRESS NOTE Date of Service DOS: DATE: 05/26/21 TIME: 14:20 Chief Complaint Chief Complaint Respiratory failure Status post tracheostomy Probable bacterial pneumonia Recent COVID-19 in November of last year Possible tracheal [place] CHF History of tracheostomy with decannulation Chronic anticoagulation with some hemoptysis Septic shock Lactic acidosis Acute hypoxic respiratory failure secondary to likely bacterial pneumonia versus viral pneumonia, septic shock, lactic acidosis consider LTAC placement, she is improving, History of Present Illness History of Present Illness 05/26, did very well all day yesterday on CPAP, will try to go 12 hours again today mental status better, some lethargy from meds, but looks good plan LTAC transfer when able ICU here, < 30 minutes today despite 2 visits 05/25, was on CPAP trial on 05/23 for 4 hours, on 05/24, she did a CPAP trial 03/25 50% and went 12 hours today we will do a CPAP trial at 40% with 03/25 and have same goal, much improvement over the past 3 days with CPAP she has been anxious, and req. benzo at times, limiting her breathing, cont tube feeds, has NG tube baltazar cath duet o weakness cont the ICU care 39 minutes today 05/24, cont current doing OK, CPAP trial, repeat from yesterday anxiety up 05/23, blood pressure has swung abotu 100 points since yesterday AM, will add BP meds, sedation was changed, cont urrent appears better, calm 05/22/2021 better and more calm today on seroquel bp better off haldol OK, still propfolol Patient seen and examined in the ICU She remains on the ventilator, on trach AC/20/45/35% with 5 of PEEP Satting 95% Tracheostomy intact Baltazar Has NG feeds SCDs in place She is sedated - opens eyes, does not really follow Vitals/I&O Vitals/I&O: Vital Signs Date Time Temp Pulse Resp B/P (MAP) Pulse Ox O2 Delivery O2 Flow Rate FiO2 05/26/21 13:56 99 Ventilator 05/26/21 12:00 98.9 61 21 78/40 98.9 I & O 05/25/21 05/25/21 05/26/21 15:00 23:00 07:00 Intake Total 678.70 ml 376 ml 874 ml Output Total 1335 ml 2220 ml 690 ml Balance -656.30 ml -1844 ml 184 ml Physical Exam General: Other (Remains on a ventilator.) Heart: Regular rate Lungs: Other (Decreased breath sounds) Abdomen: Normal bowel sounds Extremities: No clubbing, No cyanosis, Other (LUE is flaccid on exam, brisk reflex) Skin: No significant lesion Labs Labs: Laboratory Tests Test 05/26/21 00:07 05/26/21 06:10 Glucose (Fingerstick) 120 mg/dL (70-99) White Blood Count 7.9 x10^3/uL (4.0-11.0) Red Blood Count 2.72 x10^6/uL (3.50-5.40) Hemoglobin 7.9 g/dL (12.0-15.5) Hematocrit 24.0 % (36.0-47.0) Mean Corpuscular Volume 88 fL (79-100) Mean Corpuscular Hemoglobin 29 pg (25-35) Mean Corpuscular Hemoglobin Concent 33 g/dL (31-37) Red Cell Distribution Width 14.9 % (11.5-14.5) Platelet Count 352 x10^3/uL (140-400) Neutrophils (%) (Auto) 65 % (31-73) Lymphocytes (%) (Auto) 23 % (24-48) Monocytes (%) (Auto) 7 % (0-9) Eosinophils (%) (Auto) 4 % (0-3) Basophils (%) (Auto) 0 % (0-3) Neutrophils # (Auto) 5.2 x10^3/uL (1.8-7.7) Lymphocytes # (Auto) 1.8 x10^3/uL (1.0-4.8) Monocytes # (Auto) 0.6 x10^3/uL (0.0-1.1) Eosinophils # (Auto) 0.3 x10^3/uL (0.0-0.7) Basophils # (Auto) 0.0 x10^3/uL (0.0-0.2) Sodium Level 140 mmol/L (136-145) Potassium Level 3.6 mmol/L (3.5-5.1) Chloride Level 100 mmol/L (98-107) Carbon Dioxide Level 33 mmol/L (21-32) Anion Gap 7 (6-14) Blood Urea Nitrogen 21 mg/dL (7-20) Creatinine 0.7 mg/dL (0.6-1.0) Estimated GFR (Cockcroft-Gault) 84.5 BUN/Creatinine Ratio 30 (6-20) Glucose Level 113 mg/dL (70-99) Calcium Level 8.5 mg/dL (8.5-10.1) Total Bilirubin 0.4 mg/dL (0.2-1.0) Aspartate Amino Transf (AST/SGOT) 18 U/L (15-37) Alanine Aminotransferase (ALT/SGPT) 23 U/L (14-59) Alkaline Phosphatase 125 U/L (46-116) Total Protein 6.0 g/dL (6.4-8.2) Albumin 2.6 g/dL (3.4-5.0) Albumin/Globulin Ratio 0.8 (1.0-1.7) Assessment and Plan Assessmemt and Plan Problems Medical Problems: (1) Cardiac arrest Status: Acute (2) Hypokalemia Status: Acute (3) Lactic acidosis Status: Acute (4) Pneumonia Status: Acute (5) Respiratory failure, acute Status: Acute (6) Septic shock Status: Acute Comment Review of Relevant I have reviewed the following items davina (where applicable) has been applied. Justifications for Admission Other Justification RAMESH BARDALES MD May 26, 2021 14:21
[2021-05-26] MEDS ORDERED: ALBUMIN HUMAN 25% 100 ML IV ONE (14:45)
[2021-05-26] MEDS ORDERED: IV NORMAL SALINE 1000ML BAG 1,000 ML IV ONE (15:00)
[2021-05-26] MEDS: NOREPINEPHRINE VIAL 8 MG in IV DEXTROSE 5% 250 ML IV PRN (15:06)
--- NOTE | 2021-05-26 15:18 | PDOC ---
PROGRESS NOTES Date of Service DATE: 05/26/21 TIME: 15:17 Subjective Subjective Patient seen and examined Objective Objective Vital Signs Date Time Temp Pulse Resp B/P (MAP) Pulse Ox O2 Delivery O2 Flow Rate FiO2 05/26/21 13:56 99 Ventilator 05/26/21 12:00 98.9 61 21 78/40 98.9 05/24/21 20:18 98.0 Intake and Output 05/26/21 07:00 Intake Total 1928.70 ml Output Total 4245 ml Balance -2316.30 ml IV Total 41.70 ml Tube Feeding 1542 ml Other 345 ml Output Urine Total 4245 ml # Bowel Movements 1 Physical Exam Abdomen: Normal bowel sounds Heart: Regular rate General: Other (Remains on a ventilator.) Lungs: Other (Mildly decreased breath sounds) Assessment Assessment Problems Medical Problems: (1) Cardiac arrest Status: Acute (2) Hypokalemia Status: Acute (3) Lactic acidosis Status: Acute (4) Pneumonia Status: Acute (5) Respiratory failure, acute Status: Acute (6) Septic shock Status: Acute 1. Out of hospital acute cardiopulmonary arrest. Significant downtime. The patient remains on a ventilator. Rhythm stable. Echo from 05-15-20 showed an ejection fraction of 65% with moderate tricuspid regurgitation and a PAP of 50 to 52 mmHg. Continue supportive treatment and antibiotics. Possible placement. 2. Respiratory failure. Redo of tracheostomy. Followed by the pulmonary service. 3. Recent treatment with Eliquis. I can find no history of atrial fibrillation or other indications for chronic anticoagulation. Holding Eliquis. Monitoring lab. 4. Anemia. Initial H&H of 6.5 and 19.4. Morning H&H of 7.9 and 24.0. 5. Hypokalemia. Morning potassium level of 3.6. Creatinine stable at 0.7. Comment Review of Relevant I have reviewed the following items davina (where applicable) has been applied. Labs Laboratory Tests Test 05/24/21 21:43 05/25/21 07:26 05/26/21 00:07 05/26/21 06:10 Glucose (Fingerstick) 116 mg/dL (70-99) 120 mg/dL (70-99) White Blood Count 8.9 x10^3/uL (4.0-11.0) 7.9 x10^3/uL (4.0-11.0) Red Blood Count 2.88 x10^6/uL (3.50-5.40) 2.72 x10^6/uL (3.50-5.40) Hemoglobin 8.5 g/dL (12.0-15.5) 7.9 g/dL (12.0-15.5) Hematocrit 25.7 % (36.0-47.0) 24.0 % (36.0-47.0) Mean Corpuscular Volume 89 fL (79-100) 88 fL (79-100) Mean Corpuscular Hemoglobin 30 pg (25-35) 29 pg (25-35) Mean Corpuscular Hemoglobin Concent 33 g/dL (31-37) 33 g/dL (31-37) Red Cell Distribution Width 15.2 % (11.5-14.5) 14.9 % (11.5-14.5) Platelet Count 429 x10^3/uL (140-400) 352 x10^3/uL (140-400) Sodium Level 141 mmol/L (136-145) 140 mmol/L (136-145) Potassium Level 3.5 mmol/L (3.5-5.1) 3.6 mmol/L (3.5-5.1) Chloride Level 100 mmol/L (98-107) 100 mmol/L (98-107) Carbon Dioxide Level 37 mmol/L (21-32) 33 mmol/L (21-32) Anion Gap 4 (6-14) 7 (6-14) Blood Urea Nitrogen 17 mg/dL (7-20) 21 mg/dL (7-20) Creatinine 0.7 mg/dL (0.6-1.0) 0.7 mg/dL (0.6-1.0) Estimated GFR (Cockcroft-Gault) 84.5 84.5 Glucose Level 101 mg/dL (70-99) 113 mg/dL (70-99) Calcium Level 8.4 mg/dL (8.5-10.1) 8.5 mg/dL (8.5-10.1) Magnesium Level 2.0 mg/dL (1.8-2.4) Neutrophils (%) (Auto) 65 % (31-73) Lymphocytes (%) (Auto) 23 % (24-48) Monocytes (%) (Auto) 7 % (0-9) Eosinophils (%) (Auto) 4 % (0-3) Basophils (%) (Auto) 0 % (0-3) Neutrophils # (Auto) 5.2 x10^3/uL (1.8-7.7) Lymphocytes # (Auto) 1.8 x10^3/uL (1.0-4.8) Monocytes # (Auto) 0.6 x10^3/uL (0.0-1.1) Eosinophils # (Auto) 0.3 x10^3/uL (0.0-0.7) Basophils # (Auto) 0.0 x10^3/uL (0.0-0.2) BUN/Creatinine Ratio 30 (6-20) Total Bilirubin 0.4 mg/dL (0.2-1.0) Aspartate Amino Transf (AST/SGOT) 18 U/L (15-37) Alanine Aminotransferase (ALT/SGPT) 23 U/L (14-59) Alkaline Phosphatase 125 U/L (46-116) Total Protein 6.0 g/dL (6.4-8.2) Albumin 2.6 g/dL (3.4-5.0) Albumin/Globulin Ratio 0.8 (1.0-1.7) Laboratory Tests Test 05/26/21 00:07 05/26/21 06:10 Glucose (Fingerstick) 120 mg/dL (70-99) White Blood Count 7.9 x10^3/uL (4.0-11.0) Red Blood Count 2.72 x10^6/uL (3.50-5.40) Hemoglobin 7.9 g/dL (12.0-15.5) Hematocrit 24.0 % (36.0-47.0) Mean Corpuscular Volume 88 fL (79-100) Mean Corpuscular Hemoglobin 29 pg (25-35) Mean Corpuscular Hemoglobin Concent 33 g/dL (31-37) Red Cell Distribution Width 14.9 % (11.5-14.5) Platelet Count 352 x10^3/uL (140-400) Neutrophils (%) (Auto) 65 % (31-73) Lymphocytes (%) (Auto) 23 % (24-48) Monocytes (%) (Auto) 7 % (0-9) Eosinophils (%) (Auto) 4 % (0-3) Basophils (%) (Auto) 0 % (0-3) Neutrophils # (Auto) 5.2 x10^3/uL (1.8-7.7) Lymphocytes # (Auto) 1.8 x10^3/uL (1.0-4.8) Monocytes # (Auto) 0.6 x10^3/uL (0.0-1.1) Eosinophils # (Auto) 0.3 x10^3/uL (0.0-0.7) Basophils # (Auto) 0.0 x10^3/uL (0.0-0.2) Sodium Level 140 mmol/L (136-145) Potassium Level 3.6 mmol/L (3.5-5.1) Chloride Level 100 mmol/L (98-107) Carbon Dioxide Level 33 mmol/L (21-32) Anion Gap 7 (6-14) Blood Urea Nitrogen 21 mg/dL (7-20) Creatinine 0.7 mg/dL (0.6-1.0) Estimated GFR (Cockcroft-Gault) 84.5 BUN/Creatinine Ratio 30 (6-20) Glucose Level 113 mg/dL (70-99) Calcium Level 8.5 mg/dL (8.5-10.1) Total Bilirubin 0.4 mg/dL (0.2-1.0) Aspartate Amino Transf (AST/SGOT) 18 U/L (15-37) Alanine Aminotransferase (ALT/SGPT) 23 U/L (14-59) Alkaline Phosphatase 125 U/L (46-116) Total Protein 6.0 g/dL (6.4-8.2) Albumin 2.6 g/dL (3.4-5.0) Albumin/Globulin Ratio 0.8 (1.0-1.7) Microbiology 05/18/21 Aerobic Culture - Final, Complete 05/03/21 Blood Culture - Final, Complete NO GROWTH AFTER 5 DAYS Medications Current Medications Propofol 100 ml @ As Directed STK-MED ONCE IV ; Start 05/03/21 at 10:43; Stop 05/03/21 at 10:43; Status DC Norepinephrine Bitartrate 8 mg/ Dextrose 258 ml @ 19.35 mls/ hr 1X ONCE IV Last administered on 05/03/21at 11:20; Start 05/03/21 at 11:15; Stop 05/04/21 at 00:34; Status DC Propofol (Diprivan) 200 mg TITRATE ONCE IV ; Start 05/03/21 at 11:45; Stop 05/03/21 at 11:46; Status UNV Propofol 100 ml @ 3 mls/hr CONT PRN IV PER PROTOCOL Last administered on 05/03/21at 10:50; Start 05/03/21 at 11:45; Stop 05/03/21 at 12:49; Status DC Cefepime HCl (Maxipime) 2 gm 1X ONCE IVP Last administered on 05/03/21at 11:45; Start 05/03/21 at 11:45; Stop 05/03/21 at 11:46; Status DC Vancomycin HCl 1.5 gm/Sodium Chloride 500 ml @ 250 mls/hr 1X ONCE IV ; Start 05/03/21 at 11:45; Stop 05/03/21 at 13:44; Status UNV Sodium Chloride 1,000 ml @ 1,000 mls/hr 1X ONCE IV Last administered on 05/03/21at 10:50; Start 05/03/21 at 11:45; Stop 05/03/21 at 12:44; Status DC Sodium Chloride 1,000 ml @ 1,000 mls/hr 1X ONCE IV Last administered on 05/03/21at 11:00; Start 05/03/21 at 11:45; Stop 05/03/21 at 12:44; Status DC Sodium Chloride 1,000 ml @ 250 mls/hr Q4H IV Last administered on 05/04/21at 03:45; Start 05/03/21 at 11:45; Stop 05/04/21 at 11:44; Status DC Vancomycin HCl 2 gm/Sodium Chloride 500 ml @ 250 mls/hr 1X ONCE IV Last administered on 05/03/21at 12:00; Start 05/03/21 at 12:00; Stop 05/03/21 at 13:59; Status DC Potassium Bicarbonate (Potassium Effervescent Tablet) 40 meq 1X ONCE NG Last administered on 05/03/21at 15:01; Start 05/03/21 at 12:00; Stop 05/03/21 at 12:01; Status DC Potassium Chloride/Water 100 ml @ 100 mls/hr Q1H IV ; Start 05/03/21 at 12:00; Stop 05/03/21 at 12:04; Status DC Apixaban (Eliquis) 5 mg BID PO ; Start 05/03/21 at 21:00; Stop 05/03/21 at 15:54; Status DC Primidone (Mysoline) 50 mg DAILY PO Last administered on 05/26/21at 08:33; Start 05/04/21 at 09:00 Quetiapine Fumarate (SEROquel) 25 mg BID PO Last administered on 05/19/21at 20:49; Start 05/03/21 at 21:00; Stop 05/20/21 at 09:09; Status DC Citalopram Hydrobromide (CeleXA) 20 mg DAILY PO Last administered on 05/26/21at 08:34; Start 05/04/21 at 09:00 Pantoprazole Sodium (PROTONIX VIAL for IV PUSH) 40 mg DAILYAC IVP Last administered on 05/26/21at 08:35; Start 05/04/21 at 07:30 Potassium Chloride/Water 100 ml @ 100 mls/hr Q1H IV Last administered on 05/03/21at 13:43; Start 05/03/21 at 12:00; Stop 05/03/21 at 13:59; Status DC Magnesium Sulfate 50 ml @ 25 mls/hr 1X ONCE IV Last administered on 05/03/21at 15:00; Start 05/03/21 at 12:00; Stop 05/03/21 at 13:59; Status DC Ondansetron HCl (Zofran) 4 mg PRN Q6HRS PRN IVP NAUSEA/VOMITING; Start 05/03/21 at 12:00 Calcium Carbonate/ Glycine (Tums) 500 mg PRN Q3HRS PRN PO HEARTBURN / GAS; Start 05/03/21 at 12:00 Info (Icu Electrolyte Protocol) 1 ea DAILY MC Last administered on 05/25/21at 08:43; Start 05/04/21 at 09:00 Sodium Chloride (Normal Saline Flush) 3 ml QSHIFT PRN IV AFTER MEDS AND BLOOD DRAWS; Start 05/03/21 at 12:00 Potassium Chloride/Water 100 ml @ 100 mls/hr Q1H IV Last administered on 05/03/21at 15:57; Start 05/03/21 at 14:00; Stop 05/03/21 at 15:59; Status DC Fentanyl Citrate 30 ml @ 2.5 mls/hr CONT PRN IV SEE PROTOCOL Last administered on 05/08/21at 06:54; Start 05/03/21 at 12:45; Stop 05/15/21 at 07:41; Status DC Midazolam HCl 100 ml @ 1 mls/hr CONT PRN IV SEE PROTOCOL Last administered on 05/18/21at 08:14; Start 05/03/21 at 12:45 Propofol 100 ml @ 3 mls/hr CONT PRN IV PER PROTOCOL Last administered on 05/24/21at 21:40; Start 05/03/21 at 12:45 Vecuronium [place] (Norcuron Bolus) 6 mg PRN 1X PRN IV VENT INDUCTION; Start at 12:45; Stop 05/04/21 at 12:44; Status DC Dexmedetomidine HCl 400 mcg/ Sodium Chloride 100 ml @ 7,500 mls/hr CONT PRN IV PER PROTOCOL Last administered on 05/09/21at 10:42; Start 05/03/21 at 12:45; Stop 05/09/21 at 10:49; Status DC Iohexol (Omnipaque 350 Mg/ml) 100 ml 1X ONCE IV Last administered on 05/03/21at 12:58; Start 05/03/21 at 13:00; Stop 05/03/21 at 13:01; Status DC Info (CONTRAST GIVEN -- Rx MONITORING) 1 each PRN DAILY PRN MC SEE COMMENTS; Start 05/03/21 at 13:00; Stop 05/05/21 at 12:59; Status DC Piperacillin Sod/ Tazobactam Sod (Zosyn Per Pharmacy) 1 each PRN DAILY PRN MC SEE COMMENTS; Start 05/03/21 at 15:15; Stop 05/03/21 at 15:07; Status DC Vancomycin HCl (Vanco Per Pharmacy) 1 each PRN DAILY PRN MC SEE COMMENTS Last administered on 05/11/21at 09:00; Start 05/03/21 at 15:15; Stop 05/11/21 at 14:19; Status DC Cefepime HCl (Maxipime) 1 gm Q8HRS IVP ; Start 05/03/21 at 15:30; Status Cancel Insulin Human Lispro (HumaLOG) 0-7 UNITS TIDWMEALS SQ ; Start 05/03/21 at 17:00; Stop 05/07/21 at 07:52; Status DC Dextrose (Dextrose 50%-Water Syringe) 12.5 gm PRN Q15MIN PRN IV SEE COMMENTS; Start 05/03/21 at 15:15; Stop 05/07/21 at 07:53; Status DC Cefepime HCl (Maxipime) 1 gm Q8HRS IVP Last administered on 05/14/21at 14:23; Start 05/03/21 at 22:00; Stop 05/14/21 at 14:49; Status DC Methylprednisolone Sodium Succinate (SOLU-Medrol 125MG VIAL) 125 mg 1X ONCE IV Last administered on 05/03/21at 15:56; Start 05/03/21 at 15:30; Stop 05/03/21 at 15:31; Status DC Vancomycin HCl 1 gm/Sodium Chloride 250 ml @ 250 mls/hr Q12H IV Last administered on 05/10/21at 00:06; Start 05/04/21 at 00:00; Stop 05/10/21 at 10:46; Status DC Vancomycin HCl (Vancomycin Trough Level) 1 each 1X ONCE MC ; Start 05/04/21 at 23:30; Stop 05/04/21 at 23:31; Status DC Potassium Chloride/Water 100 ml @ 100 mls/hr Q1H IV Last administered on 05/04/21at 09:38; Start 05/04/21 at 08:00; Stop 05/04/21 at 09:59; Status DC Calcium Chloride (Calcium Chloride) 1,000 mg STK-MED ONCE .ROUTE ; Start 05/03/21 at 11:00; Stop 05/04/21 at 12:23; Status DC Sodium Bicarbonate (Sodium Bicarb Adult 8.4% Syr) 50 meq STK-MED ONCE .ROUTE ; Start 05/03/21 at 11:00; Stop 05/04/21 at 12:23; Status DC Epinephrine HCl (EPINEPHrine SYRINGE) 3 mg STK-MED ONCE .ROUTE ; Start 05/03/21 at 11:00; Stop 05/04/21 at 12:23; Status DC Potassium Chloride/Water 100 ml @ 100 mls/hr Q1H IV Last administered on 05/05/21at 12:19; Start 05/05/21 at 09:00; Stop 05/05/21 at 12:59; Status DC Potassium Chloride/Water 100 ml @ 100 mls/hr Q1H IV Last administered on 05/06/21at 11:05; Start 05/06/21 at 10:00; Stop 05/06/21 at 11:59; Status DC Insulin Human Lispro (HumaLOG) 0-7 UNITS Q6HRS SQ ; Start 05/07/21 at 12:00; Stop 05/10/21 at 11:00; Status DC Dextrose (Dextrose 50%-Water Syringe) 12.5 gm PRN Q15MIN PRN IV SEE COMMENTS; Start 05/07/21 at 08:00 Norepinephrine Bitartrate 8 mg/ Dextrose 258 ml @ 21.672 mls/ hr CONT PRN IV PER PROTOCOL Last administered on 05/26/21at 15:06; Start 05/07/21 at 11:30 Vancomycin HCl (Vancomycin Trough Level) 1 each 1X ONCE MC ; Start 05/09/21 at 11:30; Stop 05/09/21 at 11:31; Status DC Metoprolol Tartrate (Lopressor Vial) 5 mg PRN Q6HRS PRN IVP HYPERTENSION Last administered on 05/23/21at 05:55; Start 05/09/21 at 03:45 Scopolamine (Transderm-Scop) 1 patch Q3DAYS TD Last administered on 05/24/21at 08:40; Start 05/09/21 at 10:00 Dexmedetomidine HCl 400 mcg/ Sodium Chloride 100 ml @ 7,500 mls/hr CONT PRN IV PER PROTOCOL; Start 05/09/21 at 11:00; Stop 05/09/21 at 10:56; Status DC Dexmedetomidine HCl 400 mcg/ Sodium Chloride 100 ml @ 5 mls/hr CONT PRN IV PER PROTOCOL Last administered on 05/15/21at 21:21; Start 05/09/21 at 11:00; Stop 05/16/21 at 10:39; Status DC Potassium Bicarbonate (Potassium Effervescent Tablet) 20 meq 1X ONCE PEG Last administered on 05/09/21at 13:56; Start 05/09/21 at 14:00; Stop 05/09/21 at 14:01; Status DC Potassium Bicarbonate (Potassium Effervescent Tablet) 40 meq 1X ONCE PEG Last administered on 05/10/21at 10:23; Start 05/10/21 at 10:00; Stop 05/10/21 at 10:01; Status DC Vancomycin HCl 1.25 gm/Sodium Chloride 250 ml @ 167 mls/hr Q12H IV Last administered on 05/11/21at 11:34; Start 05/10/21 at 12:00; Stop 05/11/21 at 14:19; Status DC Potassium Bicarbonate (Potassium Effervescent Tablet) 40 meq 1X ONCE PO Last administered on 05/11/21at 10:55; Start 05/11/21 at 08:30; Stop 05/11/21 at 08:31; Status DC Midazolam HCl (Versed) 5 mg 1X ONCE IVP Last administered on 05/11/21at 11:34; Start 05/11/21 at 11:30; Stop 05/11/21 at 11:32; Status DC Potassium Chloride/Water 100 ml @ 100 mls/hr Q1H IV Last administered on 05/13/21at 10:23; Start 05/13/21 at 08:30; Stop 05/13/21 at 10:29; Status DC Fentanyl Citrate (Fentanyl 2ml Vial) 25 mcg PRN Q5MIN PRN IVP MILD PAIN 1-3; Start 05/15/21 at 06:00; Stop 05/15/21 at 20:00; Status DC Fentanyl Citrate (Fentanyl 2ml Vial) 50 mcg PRN Q5MIN PRN IVP MODERATE PAIN 4- 6; Start 05/15/21 at 06:00; Stop 05/15/21 at 20:00; Status DC Morphine Sulfate (Morphine Sulfate) 1 mg PRN Q10MIN PRN IVP SEVERE PAIN 7-10; Start 05/15/21 at 06:00; Stop 05/15/21 at 20:00; Status DC Ringer's Solution 1,000 ml @ 30 mls/hr Q24H IV Last administered on 05/15/21at 03:50; Start 05/15/21 at 06:00; Stop 05/15/21 at 17:59; Status DC Hydromorphone HCl (Dilaudid) 0.5 mg PRN Q10MIN PRN IVP SEVERE PAIN 7-10, 2nd CHOICE; Start 05/15/21 at 06:00; Stop 05/15/21 at 20:00; Status DC Prochlorperazine Edisylate (Compazine) 5 mg PACU PRN PRN IVP NAUSEA, MRX1; Start 05/15/21 at 06:00; Stop 05/15/21 at 20:00; Status DC Fentanyl Citrate 55 ml @ 1 mls/hr CONT PRN PRN IV SEE PROTOCOL Last administered on 05/24/21at 20:18; Start 05/15/21 at 07:45 Perflutren Protein Type A Microsphe (Optison) 0.66 mg 1X ONCE IV ; Start 05/15/21 at 07:45; Stop 05/15/21 at 07:46; Status DC Midazolam HCl (Versed) 5 mg 1X ONCE IVP Last administered on 05/15/21at 09:20; Start 05/15/21 at 09:15; Stop 05/15/21 at 09:16; Status DC Bupivacaine HCl/ Epinephrine Bitart (Sensorcain-Epi 0.5% Kit) 30 ml STK-MED ONCE INJ Last administered on 05/15/21at 09:49; Start 05/15/21 at 09:49; Stop 05/15/21 at 10:12; Status DC Cellulose (Surgicel Fibrillar 1x2) 1 each STK-MED ONCE TP Last administered on 05/15/21at 09:49; Start 05/15/21 at 09:49; Stop 05/15/21 at 10:12; Status DC Cellulose (Surgicel Hemostat 2x14) 1 each STK-MED ONCE SURGSITE Last administered on 05/15/21at 09:49; Start 05/15/21 at 09:49; Stop 05/15/21 at 10:12; Status DC Perflutren Protein Type A Microsphe (Optison) 0.66 mg STK-MED ONCE IV ; Start 05/15/21 at 07:00; Stop 05/15/21 at 13:03; Status DC Midazolam HCl (Versed) 5 mg STK-MED ONCE .ROUTE ; Start 05/11/21 at 11:32; Stop 05/15/21 at 13:06; Status DC Perflutren Protein Type A Microsphe (Optison) 0.66 mg STK-MED ONCE IV ; Start 05/15/21 at 06:29; Stop 05/15/21 at 13:44; Status DC Rocuronium [place] (Zemuron) 100 mg STK-MED ONCE .ROUTE ; Start 05/15/21 at 08:39; Stop 05/15/21 at 13:48; Status DC Fentanyl Citrate (Fentanyl 2ml Vial) 100 mcg STK-MED ONCE .ROUTE ; Start 05/15/21 at 08:39; Stop 05/15/21 at 13:48; Status DC Cellulose (Surgicel Fibrillar 1x2) 1 each STK-MED ONCE .ROUTE ; Start 05/15/21 at 08:42; Stop 05/15/21 at 13:48; Status DC Bupivacaine HCl/ Epinephrine Bitart (Sensorcain-Epi 0.5% Kit) 30 ml STK-MED ONCE .ROUTE ; Start 05/15/21 at 08:43; Stop 05/15/21 at 13:48; Status DC Epinephrine HCl (Adrenalin) 1 mg STK-MED ONCE .ROUTE ; Start 05/15/21 at 08:43; Stop 05/15/21 at 13:48; Status DC Midazolam HCl (Versed) 5 mg STK-MED ONCE .ROUTE ; Start 05/15/21 at 09:09; Stop 05/15/21 at 13:49; Status DC Rocuronium [place] (Zemuron) 50 mg STK-MED ONCE .ROUTE ; Start 05/15/21 at 09:49; Stop 05/15/21 at 13:49; Status DC Cellulose (Surgicel Hemostat 2x14) 1 each STK-MED ONCE .ROUTE ; Start 05/15/21 at 10:00; Stop 05/15/21 at 13:50; Status DC Perflutren Protein Type A Microsphe (Optison) 0.66 mg 1X ONCE IV Last administered on 05/15/21at 15:03; Start 05/15/21 at 15:15; Stop 05/15/21 at 15:16; Status DC Heparin Sodium (Porcine) (Heparin Sodium) 5,000 unit Q8HRS SQ Last administered on 05/26/21at 12:23; Start 05/16/21 at 14:00 Potassium Chloride/Water 100 ml @ 100 mls/hr Q1H IV Last administered on 05/17/21at 14:09; Start 05/17/21 at 11:00; Stop 05/17/21 at 13:59; Status DC Potassium Bicarbonate (Potassium Effervescent Tablet) 40 meq 1X ONCE PO Last administered on 05/18/21at 08:06; Start 05/18/21 at 07:45; Stop 05/18/21 at 07:46; Status DC Ringer's Solution 1,000 ml @ 1,000 mls/hr 1X ONCE IV Last administered on 05/19/21at 08:42; Start 05/19/21 at 08:45; Stop 05/19/21 at 09:44; Status DC Ringer's Solution 1,000 ml @ 75 mls/hr [id number] IV Last administered on 05/20/21at 19:38; Start 05/19/21 at 11:30; Stop 05/21/21 at 12:08; Status DC Dexmedetomidine HCl 400 mcg/ Sodium Chloride 100 ml @ 5.85 mls/hr CONT PRN IV PER PROTOCOL Last administered on 05/26/21at 08:24; Start 05/19/21 at 11:30 Sodium Chloride 500 ml @ 500 mls/hr 1X PRN PRN IV SEE COMMENTS Last administered on 05/19/21at 19:50; Start 05/19/21 at 11:30 Atropine Sulfate (ATROPINE 0.5mg SYRINGE) 0.5 mg PRN Q5MIN PRN IV SEE COMMENTS; Start 05/19/21 at 11:30 Haloperidol Lactate (Haldol Inj) 5 mg Q8HRS IVP Last administered on 05/21/21at 05:49; Start 05/20/21 at 09:15; Stop 05/21/21 at 08:47; Status DC Furosemide (Lasix) 40 mg [id number] IVP Last administered on 05/26/21at 12:22; Start 05/20/21 at 14:00 Potassium Chloride (Klor-Con) 40 meq 1X ONCE PO Last administered on 05/21/21at 09:08; Start 05/21/21 at 08:45; Stop 05/21/21 at 08:46; Status DC Haloperidol Lactate (Haldol Inj) 5 mg PRN Q8HRS PRN IVP agitation; Start 05/21/21 at 08:45; Stop 05/24/21 at 11:32; Status DC Quetiapine Fumarate (SEROquel) 25 mg BID PO Last administered on 05/26/21at 08:33; Start 05/21/21 at 09:00 Potassium Bicarbonate (Potassium Effervescent Tablet) 40 meq 1X ONCE PEG Last administered on 05/21/21at 09:30; Start 05/21/21 at 09:30; Stop 05/21/21 at 09:31; Status DC Sodium Chloride 1,000 ml @ 75 mls/hr [id number] IV Last administered on 05/23/21at 05:25; Start 05/21/21 at 12:15; Stop 05/24/21 at 10:24; Status DC Potassium Chloride (Klor-Con) 40 meq 1X ONCE PO ; Start 05/22/21 at 08:30; Stop 05/22/21 at 08:47; Status DC Potassium Chloride (Klor-Con) 40 meq Q2H PO ; Start 05/22/21 at 08:30; Stop 05/22/21 at 08:47; Status DC Magnesium Sulfate 50 ml @ 25 mls/hr 1X ONCE IV Last administered on 05/22/21at 09:37; Start 05/22/21 at 08:30; Stop 05/22/21 at 10:29; Status DC Potassium Bicarbonate (Potassium Effervescent Tablet) 40 meq 1X ONCE PEG Last administered on 05/22/21at 09:36; Start 05/22/21 at 08:30; Stop 05/22/21 at 08:36; Status DC Potassium Bicarbonate (Potassium Effervescent Tablet) 40 meq 1X ONCE PO Last administered on 05/22/21at 10:41; Start 05/22/21 at 10:30; Stop 05/22/21 at 10:31; Status DC Metoprolol Tartrate (Lopressor) 50 mg BID PO Last administered on 05/26/21at 08:34; Start 05/23/21 at 09:00; Stop 05/26/21 at 14:32; Status DC Hydralazine HCl (Apresoline Inj) 10 mg PRN Q4HRS PRN IVP ELEVATED BP, SEE COMMENTS Last administered on 05/23/21at 09:03; Start 05/23/21 at 09:00 Potassium Bicarbonate (Potassium Effervescent Tablet) 60 meq 1X ONCE PO Last administered on 05/23/21at 11:45; Start 05/23/21 at 11:00; Stop 05/23/21 at 11:01; Status DC Potassium Bicarbonate (Potassium Effervescent Tablet) 40 meq 1X ONCE PEG Last administered on 05/24/21at 11:16; Start 05/24/21 at 10:30; Stop 05/24/21 at 10:32; Status DC Potassium Bicarbonate (Potassium Effervescent Tablet) 40 meq 1X ONCE PEG Last administered on 05/24/21at 14:33; Start 05/24/21 at 14:30; Stop 05/24/21 at 14:31; Status DC Haloperidol Lactate (Haldol Inj) 5 mg Q8HRS IVP Last administered on 05/26/21at 12:23; Start 05/24/21 at 11:45 Potassium Bicarbonate (Potassium Effervescent Tablet) 40 meq 1X ONCE PEG Last administered on 05/25/21at 09:03; Start 05/25/21 at 08:45; Stop 05/25/21 at 08:47; Status DC Potassium Bicarbonate (Potassium Effervescent Tablet) 40 meq 1X ONCE PEG Last administered on 05/25/21at 13:46; Start 05/25/21 at 14:00; Stop 05/25/21 at 14:01; Status DC Metoprolol Tartrate (Lopressor) 25 mg BID PO ; Start 05/26/21 at 21:00 Albumin Human 100 ml @ 100 mls/hr 1X ONCE IV Last administered on 05/26/21at 14:53; Start 05/26/21 at 14:45; Stop 05/26/21 at 15:44 Sodium Chloride 1,000 ml @ 1,000 mls/hr 1X ONCE IV Last administered on 05/26/21at 14:00; Start 05/26/21 at 15:00; Stop 05/26/21 at 15:59 Active Scripts Active Easy Neb Compressor Nebulizer (Nebulizer and Compressor) 1 Each Each Each PRN PRN Use with albuterol as needed every 4 hours Albuterol Sulfate Neb Soln (Albuterol Sulfate) 2.5 Mg/3 Ml Vial.neb 1 Vial NEB PRN Q4HRS PRN 30 Days Levofloxacin 750 Mg Tablet 1 Tab PO DAILY 5 Days Reported Seroquel (Quetiapine Fumarate) 25 Mg Tablet 25 Mg PO BID Mysoline (Primidone) 50 Mg Tablet 50 Mg PO DAILY Escitalopram Oxalate 20 Mg Tablet 20 Mg PO DAILY Omeprazole 20 Mg Capsule.dr 20 Mg PO DAILY Eliquis (Apixaban) 5 Mg Tablet 5 Mg PO BID Lasix (Furosemide) 40 Mg Tablet 40 Mg PO DAILY Vitals/I & O Vital Sign - Last 24 Hours 05/25/21 05/25/21 05/25/21 05/25/21 16:00 16:00 16:04 17:00 Temp 98.6 98.6 Pulse 62 71 Resp 24 24 B/P (MAP) 131/67 106/53 Pulse Ox 65 98 99 O2 Delivery Mechanical Ventilator Ventilator Ventilator Ventilator 05/25/21 05/25/21 05/25/21 05/25/21 18:00 19:00 20:00 20:00 Temp 99.0 99.0 Pulse 72 66 86 Resp 26 20 20 B/P (MAP) 128/55 101/55 119/55 Pulse Ox 100 100 99 O2 Delivery Ventilator Ventilator Ventilator Mechanical Ventilator 05/25/21 05/25/21 05/25/21 05/25/21 20:21 21:00 21:33 22:00 Pulse 104 99 55 Resp 20 B/P (MAP) 140/67 141/65 84/45 Pulse Ox 99 97 98 O2 Delivery Ventilator Ventilator Ventilator 05/25/21 05/25/21 05/25/21 05/26/21 23:00 23:18 23:59 01:00 Temp 99.6 99.6 Pulse 92 81 59 Resp 20 20 20 B/P (MAP) 157/77 165/87 90/62 Pulse Ox 97 99 98 98 O2 Delivery Ventilator Ventilator Ventilator Ventilator 05/26/21 05/26/21 05/26/21 05/26/21 02:00 03:00 03:37 04:00 Temp 98.9 98.9 Pulse 62 93 92 Resp 26 B/P (MAP) 117/63 134/59 140/64 Pulse Ox 98 96 99 97 O2 Delivery Ventilator Ventilator Ventilator Ventilator 05/26/21 05/26/21 05/26/21 05/26/21 05:00 06:00 07:00 08:00 Pulse 70 68 96 Resp 20 20 20 B/P (MAP) 91/51 108/59 166/67 Pulse Ox 98 95 96 O2 Delivery Ventilator Ventilator Ventilator Mechanical Ventilator 05/26/21 05/26/21 05/26/21 05/26/21 08:00 08:04 08:34 09:00 Temp 99.5 99.5 Pulse 94 102 90 Resp 20 B/P (MAP) 149/63 166/67 119/54 Pulse Ox 97 97 98 O2 Delivery Ventilator Ventilator Ventilator 05/26/21 05/26/21 05/26/21 05/26/21 10:00 11:00 11:36 12:00 Temp 98.9 98.9 Pulse 80 50 61 Resp 20 20 21 B/P (MAP) 101/45 91/43 78/40 Pulse Ox 98 99 98 97 O2 Delivery Ventilator Ventilator Ventilator Ventilator 05/26/21 13:56 Pulse Ox 99 O2 Delivery Ventilator Intake and Output 05/25/21 05/25/21 05/26/21 15:00 23:00 07:00 Intake Total 678.70 ml 376 ml 874 ml Output Total 1335 ml 2220 ml 690 ml Balance -656.30 ml -1844 ml 184 ml Justifications for Admission Other Justification YUDITH RANGEL MD May 26, 2021 15:18
[2021-05-26] MEDS ORDERED: METOPROLOL TART IMMED RELEASE 25 MG TABLET. PO SCH (21:00)
[2021-05-27] VITALS (29 sets, daily range): BP systolic 62–196; BP diastolic 32–100
[2021-05-27] MEDS: DEXMEDETOMIDINE 400 MCG in IV NORMAL SALINE 100ML 96 ML IV PRN ×4 (03:12→22:03)
[2021-05-27] MEDS: HALOPERIDOL LACTATE 5 MG/ML VIAL. IVP SCH ×3 (06:21→22:01)
[2021-05-27] MEDS: HEPARIN for SUB-Q USE 5,000 UNIT/ML VIAL. SQ SCH ×3 (06:22→22:02)
--- NOTE | 2021-05-27 08:25 | PDOC ---
PULMONARY PROGRESS NOTES DATE: 05/27/21 TIME: 08:23 Subjective Patient currently on 40% FiO2 5 of PEEP Follows commands Able to legs off the bed At times blood pressure was low Vitals Vital Signs Date Time Temp Pulse Resp B/P (MAP) Pulse Ox O2 Delivery O2 Flow Rate FiO2 05/27/21 07:56 99 Ventilator 05/27/21 07:00 99 31 153/76 05/27/21 04:00 99.0 99.0 Lungs: Other (Decreased breath sounds) Cardiovascular: S1, S2 Extremities: Other (1+) Skin: No Rashes Labs Laboratory Tests Test 05/26/21 00:07 05/26/21 06:10 05/27/21 00:15 Glucose (Fingerstick) 120 mg/dL (70-99) 127 mg/dL (70-99) White Blood Count 7.9 x10^3/uL (4.0-11.0) Red Blood Count 2.72 x10^6/uL (3.50-5.40) Hemoglobin 7.9 g/dL (12.0-15.5) Hematocrit 24.0 % (36.0-47.0) Mean Corpuscular Volume 88 fL (79-100) Mean Corpuscular Hemoglobin 29 pg (25-35) Mean Corpuscular Hemoglobin Concent 33 g/dL (31-37) Red Cell Distribution Width 14.9 % (11.5-14.5) Platelet Count 352 x10^3/uL (140-400) Neutrophils (%) (Auto) 65 % (31-73) Lymphocytes (%) (Auto) 23 % (24-48) Monocytes (%) (Auto) 7 % (0-9) Eosinophils (%) (Auto) 4 % (0-3) Basophils (%) (Auto) 0 % (0-3) Neutrophils # (Auto) 5.2 x10^3/uL (1.8-7.7) Lymphocytes # (Auto) 1.8 x10^3/uL (1.0-4.8) Monocytes # (Auto) 0.6 x10^3/uL (0.0-1.1) Eosinophils # (Auto) 0.3 x10^3/uL (0.0-0.7) Basophils # (Auto) 0.0 x10^3/uL (0.0-0.2) Sodium Level 140 mmol/L (136-145) Potassium Level 3.6 mmol/L (3.5-5.1) Chloride Level 100 mmol/L (98-107) Carbon Dioxide Level 33 mmol/L (21-32) Anion Gap 7 (6-14) Blood Urea Nitrogen 21 mg/dL (7-20) Creatinine 0.7 mg/dL (0.6-1.0) Estimated GFR (Cockcroft-Gault) 84.5 BUN/Creatinine Ratio 30 (6-20) Glucose Level 113 mg/dL (70-99) Calcium Level 8.5 mg/dL (8.5-10.1) Total Bilirubin 0.4 mg/dL (0.2-1.0) Aspartate Amino Transf (AST/SGOT) 18 U/L (15-37) Alanine Aminotransferase (ALT/SGPT) 23 U/L (14-59) Alkaline Phosphatase 125 U/L (46-116) Total Protein 6.0 g/dL (6.4-8.2) Albumin 2.6 g/dL (3.4-5.0) Albumin/Globulin Ratio 0.8 (1.0-1.7) Laboratory Tests Test 05/27/21 00:15 Glucose (Fingerstick) 127 mg/dL (70-99) Medications Active Scripts Medications Dose Route/Sig Max Daily Dose Days Date Category Dose Instructions Easy Neb Compressor Nebulizer (Nebulizer and Compressor) 1 Each Each Each MC PRN PRN 05/01/21 Rx Use with albuterol as needed every 4 hours Albuterol Sulfate Neb Soln (Albuterol Sulfate) 2.5 Mg/3 Ml Vial.neb 1 Vial NEB PRN Q4HRS PRN 30 05/01/21 Rx Levofloxacin 750 Mg Tablet 1 Tab PO DAILY 5 05/01/21 Rx Seroquel (Quetiapine Fumarate) 25 Mg Tablet 25 Mg PO BID 04/26/21 Reported Mysoline (Primidone) 50 Mg Tablet 50 Mg PO DAILY 04/26/21 Reported Escitalopram Oxalate 20 Mg Tablet 20 Mg PO DAILY 03/26/21 Reported Omeprazole 20 Mg Capsule.dr 20 Mg PO DAILY 03/26/21 Reported Eliquis (Apixaban) 5 Mg Tablet 5 Mg PO BID 03/26/21 Reported Lasix (Furosemide) 40 Mg Tablet 40 Mg PO DAILY 03/26/21 Reported Impression . 1. Acute hypoxic respiratory failure secondary to likely hypoxic respiratory arrest leading to cardiac arrest.This is her second intubation in a week, . H/o tracheostomy 2. The patient with underlying history of COVID-19 viral pneumonia in late November and early December, had a trach, decannulated.. She required another hospitalization few weeks ago with respiratory failure, but was successfully extubated. April 27, 2021 3. Status post tracheostomy followed by decannulation.. November, December, [facility] 4. CT revealed no tracheal stenosis, 05/07 5. Underlying obesity. 6. Chronic interstitial lung disease 7. History of bleeding around trach 8. Anemia 9. Left upper extremity weakness. ct head neg 10. Hypotension, possibly related to sedation 11. Hypokalemia. Page of Plan . Updated / DC Lasix decrease metoprolol Continue pressure support throughout the day Appreciate cardiac input, off of Eliquis for now Monitor H&H Haldol scheduled every [address] KASHMIR BLISS MD May 27, 2021 08:25
[2021-05-27] MEDS: QUEtiapine 25 MG TABLET. PO SCH ×2 (08:39→20:37)
[2021-05-27] MEDS: CITALOPRAM 20 MG TABLET. PO SCH (08:39)
[2021-05-27] MEDS: PRIMIDONE 50 MG TABLET PO SCH (08:39)
[2021-05-27] MEDS: PANTOPRAZOLE IV PUSH 40 MG VIAL. IVP SCH (08:39)
[2021-05-27] MEDS: SCOPOLAMINE 1.5MG PATCH. TD SCH (08:39)
[2021-05-27] MEDS: ELECTROLYTE (ICU) PROTOCOL. MC SCH (08:40)
[2021-05-27] MEDS ORDERED: METOPROLOL TART IMMED RELEASE 25 MG TABLET. PO SCH (09:00)
[2021-05-27] MEDS: NOREPINEPHRINE VIAL 8 MG in IV DEXTROSE 5% 250 ML IV PRN (11:21)
--- NOTE | 2021-05-27 14:11 | PDOC ---
[employer] PROGRESS NOTE Date of Service DOS: DATE: 05/27/21 TIME: 14:09 Chief Complaint Chief Complaint Respiratory failure Status post tracheostomy Probable bacterial pneumonia Recent COVID-19 in November of last year Possible tracheal [place] CHF History of tracheostomy with decannulation Chronic anticoagulation with some hemoptysis Septic shock Lactic acidosis Acute hypoxic respiratory failure secondary to likely bacterial pneumonia versus viral pneumonia, septic shock, lactic acidosis consider LTAC placement, she is improving, History of Present Illness History of Present Illness 05/27, blood pressure fluctuates a lot, have decreased the metroprolol, low again on , will DC needs fludi and BP supporrt cont other, CPAP as able, calm to LTAC when able 05/26, did very well all day yesterday on CPAP, will try to go 12 hours again today mental status better, some lethargy from meds, but looks good plan LTAC transfer when able ICU here, < 30 minutes today despite 2 visits 05/25, was on CPAP trial on 05/23 for 4 hours, on 05/24, she did a CPAP trial 03/25 50% and went 12 hours today we will do a CPAP trial at 40% with 03/25 and have same goal, much improvement over the past 3 days with CPAP she has been anxious, and req. benzo at times, limiting her breathing, cont tube feeds, has NG tube baltazar cath duet o weakness cont the ICU care 39 minutes today 05/24, cont current doing OK, CPAP trial, repeat from yesterday anxiety up 05/23, blood pressure has swung abotu 100 points since yesterday AM, will add BP meds, sedation was changed, cont urrent appears better, calm 05/22/2021 better and more calm today on seroquel bp better off haldol OK, still propfolol Patient seen and examined in the ICU She remains on the ventilator, on trach AC/20/45/35% with 5 of PEEP Satting 95% Tracheostomy intact Baltazar Has NG feeds SCDs in place She is sedated - opens eyes, does not really follow Vitals/I&O Vitals/I&O: Vital Signs Date Time Temp Pulse Resp B/P (MAP) Pulse Ox O2 Delivery O2 Flow Rate FiO2 05/27/21 13:58 98 Ventilator 05/27/21 13:00 54 20 92/46 05/27/21 12:00 99.1 99.1 I & O 05/26/21 05/26/21 05/27/21 15:00 23:00 07:00 Intake Total 200 ml 2447 ml 1209 ml Output Total 360 ml 990 ml 440 ml Balance -160 ml 1457 ml 769 ml Physical Exam General: Other (Remains on a ventilator.) Heart: Regular rate Lungs: Other (Decreased breath sounds) Abdomen: Normal bowel sounds Extremities: No clubbing, No cyanosis, Other (LUE is flaccid on exam, brisk reflex) Skin: No significant lesion Labs Labs: Laboratory Tests Test 05/27/21 00:15 Glucose (Fingerstick) 127 mg/dL (70-99) Assessment and Plan Assessmemt and Plan Problems Medical Problems: (1) Cardiac arrest Status: Acute (2) Hypokalemia Status: Acute (3) Lactic acidosis Status: Acute (4) Pneumonia Status: Acute (5) Respiratory failure, acute Status: Acute (6) Septic shock Status: Acute Comment Review of Relevant I have reviewed the following items davina (where applicable) has been applied. Medications: Current Medications Medications (Trade) Dose Ordered Sig/Qing Route PRN Reason Start Time Stop Time Status Last Admin Dose Admin Albumin Human 100 ml @ 100 mls/hr 1X ONCE IV 05/26/21 14:45 05/26/21 15:44 DC 05/26/21 14:53 Sodium Chloride 1,000 ml @ 1,000 mls/hr 1X ONCE IV 05/26/21 15:00 05/26/21 15:59 DC 05/26/21 14:00 Metoprolol Tartrate (Lopressor) 25 mg DAILY PO 05/27/21 09:00 05/27/21 10:38 DC 05/27/21 08:50 Justifications for Admission Other Justification RAMESH BARDALES MD May 27, 2021 14:11
--- NOTE | 2021-05-27 14:39 | PDOC ---
PROGRESS NOTES Date of Service DATE: 05/27/21 TIME: 14:37 Subjective Subjective Patient seen and examined Objective Objective Vital Signs Date Time Temp Pulse Resp B/P (MAP) Pulse Ox O2 Delivery O2 Flow Rate FiO2 05/27/21 14:00 95 20 157/90 98 Ventilator 05/27/21 12:00 99.1 99.1 05/24/21 20:18 98.0 Intake and Output 05/27/21 07:00 Intake Total 3856 ml Output Total 1790 ml Balance 2066 ml IV Total 273 ml Tube Feeding 1735 ml Other 1848 ml Output Urine Total 1790 ml Gastric Drainage Total 0 ml Physical Exam Abdomen: Normal bowel sounds Heart: Regular rate General: Other (Remains on a ventilator.) Lungs: Other (Minimally decreased breath sounds) Assessment Assessment Problems Medical Problems: (1) Cardiac arrest Status: Acute (2) Hypokalemia Status: Acute (3) Lactic acidosis Status: Acute (4) Pneumonia Status: Acute (5) Respiratory failure, acute Status: Acute (6) Septic shock Status: Acute 1. Out of hospital acute cardiopulmonary arrest. Significant downtime. The patient remains on a ventilator but appears more alert today. Rhythm stable. Echo from 05-15-20 showed an ejection fraction of 65% with moderate tricuspid regurgitation and a PAP of 50 to 52 mmHg. Continue supportive treatment and antibiotics. Possible placement. 2. Respiratory failure. Redo of tracheostomy. Followed by the pulmonary service. 3. Recent treatment with Eliquis. I can find no history of atrial fibrillation or other indications for chronic anticoagulation. Holding Eliquis. Monitoring lab. 4. Anemia. Initial H&H of 6.5 and 19.4. Morning H&H of 7.9 and 24.0. 5. Hypokalemia. Morning potassium level of 3.6. Comment Review of Relevant I have reviewed the following items davina (where applicable) has been applied. Labs Laboratory Tests Test 05/26/21 00:07 05/26/21 06:10 05/27/21 00:15 Glucose (Fingerstick) 120 mg/dL (70-99) 127 mg/dL (70-99) White Blood Count 7.9 x10^3/uL (4.0-11.0) Red Blood Count 2.72 x10^6/uL (3.50-5.40) Hemoglobin 7.9 g/dL (12.0-15.5) Hematocrit 24.0 % (36.0-47.0) Mean Corpuscular Volume 88 fL (79-100) Mean Corpuscular Hemoglobin 29 pg (25-35) Mean Corpuscular Hemoglobin Concent 33 g/dL (31-37) Red Cell Distribution Width 14.9 % (11.5-14.5) Platelet Count 352 x10^3/uL (140-400) Neutrophils (%) (Auto) 65 % (31-73) Lymphocytes (%) (Auto) 23 % (24-48) Monocytes (%) (Auto) 7 % (0-9) Eosinophils (%) (Auto) 4 % (0-3) Basophils (%) (Auto) 0 % (0-3) Neutrophils # (Auto) 5.2 x10^3/uL (1.8-7.7) Lymphocytes # (Auto) 1.8 x10^3/uL (1.0-4.8) Monocytes # (Auto) 0.6 x10^3/uL (0.0-1.1) Eosinophils # (Auto) 0.3 x10^3/uL (0.0-0.7) Basophils # (Auto) 0.0 x10^3/uL (0.0-0.2) Sodium Level 140 mmol/L (136-145) Potassium Level 3.6 mmol/L (3.5-5.1) Chloride Level 100 mmol/L (98-107) Carbon Dioxide Level 33 mmol/L (21-32) Anion Gap 7 (6-14) Blood Urea Nitrogen 21 mg/dL (7-20) Creatinine 0.7 mg/dL (0.6-1.0) Estimated GFR (Cockcroft-Gault) 84.5 BUN/Creatinine Ratio 30 (6-20) Glucose Level 113 mg/dL (70-99) Calcium Level 8.5 mg/dL (8.5-10.1) Total Bilirubin 0.4 mg/dL (0.2-1.0) Aspartate Amino Transf (AST/SGOT) 18 U/L (15-37) Alanine Aminotransferase (ALT/SGPT) 23 U/L (14-59) Alkaline Phosphatase 125 U/L (46-116) Total Protein 6.0 g/dL (6.4-8.2) Albumin 2.6 g/dL (3.4-5.0) Albumin/Globulin Ratio 0.8 (1.0-1.7) Laboratory Tests Test 05/27/21 00:15 Glucose (Fingerstick) 127 mg/dL (70-99) Microbiology 05/18/21 Aerobic Culture - Final, Complete 05/03/21 Blood Culture - Final, Complete NO GROWTH AFTER 5 DAYS Medications Current Medications Propofol 100 ml @ As Directed STK-MED ONCE IV ; Start 05/03/21 at 10:43; Stop 05/03/21 at 10:43; Status DC Norepinephrine Bitartrate 8 mg/ Dextrose 258 ml @ 19.35 mls/ hr 1X ONCE IV Last administered on 05/03/21at 11:20; Start 05/03/21 at 11:15; Stop 05/04/21 at 00:34; Status DC Propofol (Diprivan) 200 mg TITRATE ONCE IV ; Start 05/03/21 at 11:45; Stop 05/03/21 at 11:46; Status UNV Propofol 100 ml @ 3 mls/hr CONT PRN IV PER PROTOCOL Last administered on 05/03/21at 10:50; Start 05/03/21 at 11:45; Stop 05/03/21 at 12:49; Status DC Cefepime HCl (Maxipime) 2 gm 1X ONCE IVP Last administered on 05/03/21at 11:45; Start 05/03/21 at 11:45; Stop 05/03/21 at 11:46; Status DC Vancomycin HCl 1.5 gm/Sodium Chloride 500 ml @ 250 mls/hr 1X ONCE IV ; Start 05/03/21 at 11:45; Stop 05/03/21 at 13:44; Status UNV Sodium Chloride 1,000 ml @ 1,000 mls/hr 1X ONCE IV Last administered on 05/03/21at 10:50; Start 05/03/21 at 11:45; Stop 05/03/21 at 12:44; Status DC Sodium Chloride 1,000 ml @ 1,000 mls/hr 1X ONCE IV Last administered on 05/03/21at 11:00; Start 05/03/21 at 11:45; Stop 05/03/21 at 12:44; Status DC Sodium Chloride 1,000 ml @ 250 mls/hr Q4H IV Last administered on 05/04/21at 03:45; Start 05/03/21 at 11:45; Stop 05/04/21 at 11:44; Status DC Vancomycin HCl 2 gm/Sodium Chloride 500 ml @ 250 mls/hr 1X ONCE IV Last administered on 05/03/21at 12:00; Start 05/03/21 at 12:00; Stop 05/03/21 at 13:59; Status DC Potassium Bicarbonate (Potassium Effervescent Tablet) 40 meq 1X ONCE NG Last administered on 05/03/21at 15:01; Start 05/03/21 at 12:00; Stop 05/03/21 at 12:01; Status DC Potassium Chloride/Water 100 ml @ 100 mls/hr Q1H IV ; Start 05/03/21 at 12:00; Stop 05/03/21 at 12:04; Status DC Apixaban (Eliquis) 5 mg BID PO ; Start 05/03/21 at 21:00; Stop 05/03/21 at 15 :54; Status DC Primidone (Mysoline) 50 mg DAILY PO Last administered on 05/27/21at 08:39; Start 05/04/21 at 09:00 Quetiapine Fumarate (SEROquel) 25 mg BID PO Last administered on 05/19/21at 20:49; Start 05/03/21 at 21:00; Stop 05/20/21 at 09:09; Status DC Citalopram Hydrobromide (CeleXA) 20 mg DAILY PO Last administered on 05/27/21at 08:39; Start 05/04/21 at 09:00 Pantoprazole Sodium (PROTONIX VIAL for IV PUSH) 40 mg DAILYAC IVP Last administered on 05/27/21at 08:39; Start 05/04/21 at 07:30 Potassium Chloride/Water 100 ml @ 100 mls/hr Q1H IV Last administered on 05/03/21at 13:43; Start 05/03/21 at 12:00; Stop 05/03/21 at 13:59; Status DC Magnesium Sulfate 50 ml @ 25 mls/hr 1X ONCE IV Last administered on 05/03/21at 15:00; Start 05/03/21 at 12:00; Stop 05/03/21 at 13:59; Status DC Ondansetron HCl (Zofran) 4 mg PRN Q6HRS PRN IVP NAUSEA/VOMITING; Start 05/03/21 at 12:00 Calcium Carbonate/ Glycine (Tums) 500 mg PRN Q3HRS PRN PO HEARTBURN / GAS; Start 05/03/21 at 12:00 Info (Icu Electrolyte Protocol) 1 ea DAILY MC Last administered on 05/25/21at 08:43; Start 05/04/21 at 09:00 Sodium Chloride (Normal Saline Flush) 3 ml QSHIFT PRN IV AFTER MEDS AND BLOOD DRAWS; Start 05/03/21 at 12:00 Potassium Chloride/Water 100 ml @ 100 mls/hr Q1H IV Last administered on 04/21 07/10at 15:57; Start 05/03/21 at 14:00; Stop 05/03/21 at 15:59; Status DC Fentanyl Citrate 30 ml @ 2.5 mls/hr CONT PRN IV SEE PROTOCOL Last administered on 05/08/21at 06:54; Start 05/03/21 at 12:45; Stop 05/15/21 at 07:41; Status DC Midazolam HCl 100 ml @ 1 mls/hr CONT PRN IV SEE PROTOCOL Last administered on 05/18/21at 08:14; Start 05/03/21 at 12:45 Propofol 100 ml @ 3 mls/hr CONT PRN IV PER PROTOCOL Last administered on 05/24/21at 21:40; Start 05/03/21 at 12:45 Vecuronium [place] (Norcuron Bolus) 6 mg PRN 1X PRN IV VENT INDUCTION; Start 05/03/21 at 12:45; Stop 05/04/21 at 12:44; Status DC Dexmedetomidine HCl 400 mcg/ Sodium Chloride 100 ml @ 7,500 mls/hr CONT PRN IV PER PROTOCOL Last administered on 05/09/21at 10:42; Start 05/03/21 at 12:45; Stop 05/09/21 at 10:49; Status DC Iohexol (Omnipaque 350 Mg/ml) 100 ml 1X ONCE IV Last administered on 05/03/21at 12:58; Start 05/03/21 at 13:00; Stop 05/03/21 at 13:01; Status DC Info (CONTRAST GIVEN -- Rx MONITORING) 1 each PRN DAILY PRN MC SEE COMMENTS; Start 05/03/21 at 13:00; Stop 05/05/21 at 12:59; Status DC Piperacillin Sod/ Tazobactam Sod (Zosyn Per Pharmacy) 1 each PRN DAILY PRN MC SEE COMMENTS; Start 05/03/21 at 15:15; Stop 05/03/21 at 15:07; Status DC Vancomycin HCl (Vanco Per Pharmacy) 1 each PRN DAILY PRN MC SEE COMMENTS Last administered on 05/11/21at 09:00; Start 05/03/21 at 15:15; Stop 05/11/21 at 14:19; Status DC Cefepime HCl (Maxipime) 1 gm Q8HRS IVP ; Start 05/03/21 at 15:30; Status Cancel Insulin Human Lispro (HumaLOG) 0-7 UNITS TIDWMEALS SQ ; Start 05/03/21 at 17:00; Stop 05/07/21 at 07:52; Status DC Dextrose (Dextrose 50%-Water Syringe) 12.5 gm PRN Q15MIN PRN IV SEE COMMENTS; Start 05/03/21 at 15:15; Stop 05/07/21 at 07:53; Status DC Cefepime HCl (Maxipime) 1 gm Q8HRS IVP Last administered on 05/14/21at 14:23; Start 05/03/21 at 22:00; Stop 05/14/21 at 14:49; Status DC Methylprednisolone Sodium Succinate (SOLU-Medrol 125MG VIAL) 125 mg 1X ONCE IV Last administered on 05/03/21at 15:56; Start 05/03/21 at 15:30; Stop 05/03/21 at 15:31; Status DC Vancomycin HCl 1 gm/Sodium Chloride 250 ml @ 250 mls/hr Q12H IV Last administered on 05/10/21at 00:06; Start 05/04/21 at 00:00; Stop 05/10/21 at 10:46; Status DC Vancomycin HCl (Vancomycin Trough Level) 1 each 1X ONCE MC ; Start 05/04/21 at 23:30; Stop 05/04/21 at 23:31; Status DC Potassium Chloride/Water 100 ml @ 100 mls/hr Q1H IV Last administered on 05/04/21at 09:38; Start 05/04/21 at 08:00; Stop 05/04/21 at 09:59; Status DC Calcium Chloride (Calcium Chloride) 1,000 mg STK-MED ONCE .ROUTE ; Start 05/03/21 at 11:00; Stop 05/04/21 at 12:23; Status DC Sodium Bicarbonate (Sodium Bicarb Adult 8.4% Syr) 50 meq STK-MED ONCE .ROUTE ; Start 05/03/21 at 11:00; Stop 05/04/21 at 12:23; Status DC Epinephrine HCl (EPINEPHrine SYRINGE) 3 mg STK-MED ONCE .ROUTE ; Start 05/03/21 at 11:00; Stop 05/04/21 at 12:23; Status DC Potassium Chloride/Water 100 ml @ 100 mls/hr Q1H IV Last administered on 05/05/21at 12:19; Start 05/05/21 at 09:00; Stop 05/05/21 at 12:59; Status DC Potassium Chloride/Water 100 ml @ 100 mls/hr Q1H IV Last administered on 05/06/21at 11:05; Start 05/06/21 at 10:00; Stop 05/06/21 at 11:59; Status DC Insulin Human Lispro (HumaLOG) 0-7 UNITS Q6HRS SQ ; Start 05/07/21 at 12:00; Stop 05/10/21 at 11:00; Status DC Dextrose (Dextrose 50%-Water Syringe) 12.5 gm PRN Q15MIN PRN IV SEE COMMENTS; Start 05/07/21 at 08:00 Norepinephrine Bitartrate 8 mg/ Dextrose 258 ml @ 21.672 mls/ hr CONT PRN IV PER PROTOCOL Last administered on 05/27/21at 11:21; Start 05/07/21 at 11:30 Vancomycin HCl (Vancomycin Trough Level) 1 each 1X ONCE MC ; Start 05/09/21 at 11:30; Stop 05/09/21 at 11:31; Status DC Metoprolol Tartrate (Lopressor Vial) 5 mg PRN Q6HRS PRN IVP HYPERTENSION Last administered on 05/23/21at 05:55; Start 05/09/21 at 03:45 Scopolamine (Transderm-Scop) 1 patch Q3DAYS TD Last administered on 05/27/21at 08:39; Start 05/09/21 at 10:00 Dexmedetomidine HCl 400 mcg/ Sodium Chloride 100 ml @ 7,500 mls/hr CONT PRN IV PER PROTOCOL; Start 05/09/21 at 11:00; Stop 05/09/21 at 10:56; Status DC Dexmedetomidine HCl 400 mcg/ Sodium Chloride 100 ml @ 5 mls/hr CONT PRN IV PER PROTOCOL Last administered on 05/15/21at 21:21; Start 05/09/21 at 11:00; Stop 05/16/21 at 10:39; Status DC Potassium Bicarbonate (Potassium Effervescent Tablet) 20 meq 1X ONCE PEG Last administered on 05/09/21at 13:56; Start 05/09/21 at 14:00; Stop 05/09/21 at 14:01; Status DC Potassium Bicarbonate (Potassium Effervescent Tablet) 40 meq 1X ONCE PEG Last administered on 05/10/21at 10:23; Start 05/10/21 at 10:00; Stop 05/10/21 at 10:01; Status DC Vancomycin HCl 1.25 gm/Sodium Chloride 250 ml @ 167 mls/hr Q12H IV Last administered on 05/11/21at 11:34; Start 05/10/21 at 12:00; Stop 05/11/21 at 14:19; Status DC Potassium Bicarbonate (Potassium Effervescent Tablet) 40 meq 1X ONCE PO Last administered on 05/11/21at 10:55; Start 05/11/21 at 08:30; Stop 05/11/21 at 08:31; Status DC Midazolam HCl (Versed) 5 mg 1X ONCE IVP Last administered on 05/11/21at 11:34; Start 05/11/21 at 11:30; Stop 05/11/21 at 11:32; Status DC Potassium Chloride/Water 100 ml @ 100 mls/hr Q1H IV Last administered on 05/13/21at 10:23; Start 05/13/21 at 08:30; Stop 05/13/21 at 10:29; Status DC Fentanyl Citrate (Fentanyl 2ml Vial) 25 mcg PRN Q5MIN PRN IVP MILD PAIN 1-3; Start 05/15/21 at 06:00; Stop 05/15/21 at 20:00; Status DC Fentanyl Citrate (Fentanyl 2ml Vial) 50 mcg PRN Q5MIN PRN IVP MODERATE PAIN 4- 6; Start 05/15/21 at 06:00; Stop 05/15/21 at 20:00; Status DC Morphine Sulfate (Morphine Sulfate) 1 mg PRN Q10MIN PRN IVP SEVERE PAIN 7-10; Start 05/15/21 at 06:00; Stop 05/15/21 at 20:00; Status DC Ringer's Solution 1,000 ml @ 30 mls/hr Q24H IV Last administered on 05/15/21at 03:50; Start 05/15/21 at 06:00; Stop 05/15/21 at 17:59; Status DC Hydromorphone HCl (Dilaudid) 0.5 mg PRN Q10MIN PRN IVP SEVERE PAIN 7-10, 2nd C HOICE; Start 05/15/21 at 06:00; Stop 05/15/21 at 20:00; Status DC Prochlorperazine Edisylate (Compazine) 5 mg PACU PRN PRN IVP NAUSEA, MRX1; Start 05/15/21 at 06:00; Stop 05/15/21 at 20:00; Status DC Fentanyl Citrate 55 ml @ 1 mls/hr CONT PRN PRN IV SEE PROTOCOL Last administered on 05/24/21at 20:18; Start 05/15/21 at 07:45 Perflutren Protein Type A Microsphe (Optison) 0.66 mg 1X ONCE IV ; Start 05/15/21 at 07:45; Stop 05/15/21 at 07:46; Status DC Midazolam HCl (Versed) 5 mg 1X ONCE IVP Last administered on 05/15/21at 09:20; Start 05/15/21 at 09:15; Stop 05/15/21 at 09:16; Status DC Bupivacaine HCl/ Epinephrine Bitart (Sensorcain-Epi 0.5% Kit) 30 ml STK-MED ONCE INJ Last administered on 05/15/21at 09:49; Start 05/15/21 at 09:49; Stop 05/15/21 at 10:12; Status DC Cellulose (Surgicel Fibrillar 1x2) 1 each STK-MED ONCE TP Last administered on 05/15/21at 09:49; Start 05/15/21 at 09:49; Stop 05/15/21 at 10:12; Status DC Cellulose (Surgicel Hemostat 2x14) 1 each STK-MED ONCE SURGSITE Last administered on 05/15/21at 09:49; Start 05/15/21 at 09:49; Stop 05/15/21 at 10:12; Status DC Perflutren Protein Type A Microsphe (Optison) 0.66 mg STK-MED ONCE IV ; Start 05/15/21 at 07:00; Stop 05/15/21 at 13:03; Status DC Midazolam HCl (Versed) 5 mg STK-MED ONCE .ROUTE ; Start 05/11/21 at 11:32; Stop 05/15/21 at 13:06; Status DC Perflutren Protein Type A Microsphe (Optison) 0.66 mg STK-MED ONCE IV ; Start 05/15/21 at 06:29; Stop 05/15/21 at 13:44; Status DC Rocuronium [place] (Zemuron) 100 mg STK-MED ONCE .ROUTE ; Start 05/15/21 at 08:39; Stop 05/15/21 at 13:48; Status DC Fentanyl Citrate (Fentanyl 2ml Vial) 100 mcg STK-MED ONCE .ROUTE ; Start 05/15/21 at 08:39; Stop 05/15/21 at 13:48; Status DC Cellulose (Surgicel Fibrillar 1x2) 1 each STK-MED ONCE .ROUTE ; Start 05/15/21 at 08:42; Stop 05/15/21 at 13:48; Status DC Bupivacaine HCl/ Epinephrine Bitart (Sensorcain-Epi 0.5% Kit) 30 ml STK-MED ONCE .ROUTE ; Start 05/15/21 at 08:43; Stop 05/15/21 at 13:48; Status DC Epinephrine HCl (Adrenalin) 1 mg STK-MED ONCE .ROUTE ; Start 05/15/21 at 08:43; Stop 05/15/21 at 13:48; Status DC Midazolam HCl (Versed) 5 mg STK-MED ONCE .ROUTE ; Start 05/15/21 at 09:09; Stop 05/15/21 at 13:49; Status DC Rocuronium [place] (Zemuron) 50 mg STK-MED ONCE .ROUTE ; Start 05/15/21 at 09:49; Stop 05/15/21 at 13:49; Status DC Cellulose (Surgicel Hemostat 2x14) 1 each STK-MED ONCE .ROUTE ; Start 05/15/21 at 10:00; Stop 05/15/21 at 13:50; Status DC Perflutren Protein Type A Microsphe (Optison) 0.66 mg 1X ONCE IV Last administered on 05/15/21at 15:03; Start 05/15/21 at 15:15; Stop 05/15/21 at 15:16; Status DC Heparin Sodium (Porcine) (Heparin Sodium) 5,000 unit Q8HRS SQ Last administered on 05/27/21at 12:00; Start 05/16/21 at 14:00 Potassium Chloride/Water 100 ml @ 100 mls/hr Q1H IV Last administered on 05/17/21at 14:09; Start 05/17/21 at 11:00; Stop 05/17/21 at 13:59; Status DC Potassium Bicarbonate (Potassium Effervescent Tablet) 40 meq 1X ONCE PO Last administered on 05/18/21at 08:06; Start 05/18/21 at 07:45; Stop 05/18/21 at 07:46; Status DC Ringer's Solution 1,000 ml @ 1,000 mls/hr 1X ONCE IV Last administered on 05/19/21at 08:42; Start 05/19/21 at 08:45; Stop 05/19/21 at 09:44; Status DC Ringer's Solution 1,000 ml @ 75 mls/hr [id number] IV Last administered on 05/20/21at 19:38; Start 05/19/21 at 11:30; Stop 05/21/21 at 12:08; Status DC Dexmedetomidine HCl 400 mcg/ Sodium Chloride 100 ml @ 5.85 mls/hr CONT PRN IV PER PROTOCOL Last administered on 05/27/21at 08:50; Start 05/19/21 at 11:30 Sodium Chloride 500 ml @ 500 mls/hr 1X PRN PRN IV SEE COMMENTS Last administered on 05/19/21at 19:50; Start 05/19/21 at 11:30 Atropine Sulfate (ATROPINE 0.5mg SYRINGE) 0.5 mg PRN Q5MIN PRN IV SEE COMMENTS; Start 05/19/21 at 11:30 Haloperidol Lactate (Haldol Inj) 5 mg Q8HRS IVP Last administered on 05/21/21at 05:49; Start 05/20/21 at 09:15; Stop 05/21/21 at 08:47; Status DC Furosemide (Lasix) 40 mg [id number] IVP Last administered on 05/26/21at 12:22; Start 05/20/21 at 14:00; Stop 05/27/21 at 08:25; Status DC Potassium Chloride (Klor-Con) 40 meq 1X ONCE PO Last administered on 05/21/21at 09:08; Start 05/21/21 at 08:45; Stop 05/21/21 at 08:46; Status DC Haloperidol Lactate (Haldol Inj) 5 mg PRN Q8HRS PRN IVP agitation; Start 05/21/21 at 08:45; Stop 05/24/21 at 11:32; Status DC Quetiapine Fumarate (SEROquel) 25 mg BID PO Last administered on 05/27/21at 08:39; Start 05/21/21 at 09:00 Potassium Bicarbonate (Potassium Effervescent Tablet) 40 meq 1X ONCE PEG Last administered on 05/21/21at 09:30; Start 05/21/21 at 09:30; Stop 05/21/21 at 09:31; Status DC Sodium Chloride 1,000 ml @ 75 mls/hr [id number] IV Last administered on 05/23/21at 05:25; Start 05/21/21 at 12:15; Stop 05/24/21 at 10:24; Status DC Potassium Chloride (Klor-Con) 40 meq 1X ONCE PO ; Start 05/22/21 at 08:30; Stop 05/22/21 at 08:47; Status DC Potassium Chloride (Klor-Con) 40 meq Q2H PO ; Start 05/22/21 at 08:30; Stop 05/22/21 at 08:47; Status DC Magnesium Sulfate 50 ml @ 25 mls/hr 1X ONCE IV Last administered on 05/22/21at 09:37; Start 05/22/21 at 08:30; Stop 05/22/21 at 10:29; Status DC Potassium Bicarbonate (Potassium Effervescent Tablet) 40 meq 1X ONCE PEG Last administered on 05/22/21at 09:36; Start 05/22/21 at 08:30; Stop 05/22/21 at 08:36; Status DC Potassium Bicarbonate (Potassium Effervescent Tablet) 40 meq 1X ONCE PO Last administered on 05/22/21at 10:41; Start 05/22/21 at 10:30; Stop 05/22/21 at 10:31; Status DC Metoprolol Tartrate (Lopressor) 50 mg BID PO Last administered on 05/26/21 08:34; Start 05/23/21 at 09:00; Stop 05/26/21 at 14:32; Status DC Hydralazine HCl (Apresoline Inj) 10 mg PRN Q4HRS PRN IVP ELEVATED BP, SEE COMMENTS Last administered on 05/23/21at 09:03; Start 05/23/21 at 09:00 Potassium Bicarbonate (Potassium Effervescent Tablet) 60 meq 1X ONCE PO Last administered on 05/23/21at 11:45; Start 05/23/21 at 11:00; Stop 05/23/21 at 11:01; Status DC Potassium Bicarbonate (Potassium Effervescent Tablet) 40 meq 1X ONCE PEG Last administered on 05/24/21at 11:16; Start 05/24/21 at 10:30; Stop 05/24/21 at 10:32; Status DC Potassium Bicarbonate (Potassium Effervescent Tablet) 40 meq 1X ONCE PEG Last administered on 05/24/21at 14:33; Start 05/24/21 at 14:30; Stop 05/24/21 at 14:31; Status DC Haloperidol Lactate (Haldol Inj) 5 mg Q8HRS IVP Last administered on 05/27/21at 06:21; Start 05/24/21 at 11:45 Potassium Bicarbonate (Potassium Effervescent Tablet) 40 meq 1X ONCE PEG Last administered on 05/25/21at 09:03; Start 05/25/21 at 08:45; Stop 05/25/21 at 08:47; Status DC Potassium Bicarbonate (Potassium Effervescent Tablet) 40 meq 1X ONCE PEG Last administered on 05/25/21at 13:46; Start 05/25/21 at 14:00; Stop 05/25/21 at 14:01; Status DC Metoprolol Tartrate (Lopressor) 25 mg BID PO ; Start 05/26/21 at 21:00; Stop 05/27/21 at 08:25; Status DC Albumin Human 100 ml @ 100 mls/hr 1X ONCE IV Last administered on 05/26/21at 14:53; Start 05/26/21 at 14:45; Stop 05/26/21 at 15:44; Status DC Sodium Chloride 1,000 ml @ 1,000 mls/hr 1X ONCE IV Last administered on 05/26/21at 14:00; Start 05/26/21 at 15:00; Stop 05/26/21 at 15:59; Status DC Metoprolol Tartrate (Lopressor) 25 mg DAILY PO Last administered on 05/27/21at 08:50; Start 05/27/21 at 09:00; Stop 05/27/21 at 10:38; Status DC Active Scripts Active Easy Neb Compressor Nebulizer (Nebulizer and Compressor) 1 Each Each Each MC PRN PRN Use with albuterol as needed every 4 hours Albuterol Sulfate Neb Soln (Albuterol Sulfate) 2.5 Mg/3 Ml Vial.neb 1 Vial NEB PRN Q4HRS PRN 30 Days Levofloxacin 750 Mg Tablet 1 Tab PO DAILY 5 Days Reported Seroquel (Quetiapine Fumarate) 25 Mg Tablet 25 Mg PO BID Mysoline (Primidone) 50 Mg Tablet 50 Mg PO DAILY Escitalopram Oxalate 20 Mg Tablet 20 Mg PO DAILY Omeprazole 20 Mg Capsule.dr 20 Mg PO DAILY Eliquis (Apixaban) 5 Mg Tablet 5 Mg PO BID Lasix (Furosemide) 40 Mg Tablet 40 Mg PO DAILY Vitals/I & O Vital Sign - Last 24 Hours 05/26/21 05/26/21 05/26/21 05/26/21 14:40 15:00 15:15 15:39 Pulse 44 44 44 44 Resp 20 20 20 20 B/P (MAP) 82/30 57/28 96/53 140/73 Pulse Ox 99 99 100 100 O2 Delivery Ventilator Ventilator Ventilator Ventilator 05/26/21 05/26/21 05/26/21 05/26/21 15:47 16:00 16:30 16:41 Temp 98.5 98.5 Pulse 61 83 Resp 22 25 B/P (MAP) 122/62 79/40 Pulse Ox 100 100 100 100 O2 Delivery Ventilator Ventilator Ventilator Ventilator 05/26/21 05/26/21 05/26/21 05/26/21 17:00 17:34 18:00 19:00 Pulse 50 51 52 Resp 20 20 20 26 B/P (MAP) 90/50 137/69 151/75 165/83 Pulse Ox 100 100 100 98 O2 Delivery Ventilator 05/26/21 05/26/21 05/26/21 05/26/21 19:30 20:00 20:00 20:15 Temp 98.8 98.8 Pulse 83 72 Resp 22 B/P (MAP) 178/84 163/83 Pulse Ox 100 98 99 O2 Delivery Ventilator Mechanical Ventilator Ventilator Ventilator 05/26/21 05/26/21 05/26/21 05/26/21 20:30 21:00 21:00 22:00 Pulse 53 52 52 51 Resp 20 20 20 B/P (MAP) 105/57 134/68 134/68 145/75 Pulse Ox 99 100 99 O2 Delivery Ventilator Ventilator Ventilator 05/26/21 05/26/21 05/26/21 05/26/21 22:15 22:30 23:00 23:00 Pulse 47 48 49 Resp 20 20 20 B/P (MAP) 79/38 100/53 106/57 Pulse Ox 99 100 99 100 O2 Delivery Ventilator Ventilator Ventilator Ventilator 05/26/21 05/27/21 05/27/21 05/27/21 23:59 01:00 02:00 02:15 Temp 98.7 98.7 Pulse 48 94 98 105 Resp 28 B/P (MAP) 131/67 133/67 161/75 196/100 Pulse Ox 100 99 98 99 O2 Delivery Ventilator Ventilator Ventilator Ventilator 05/27/21 05/27/21 05/27/21 05/27/21 02:30 02:45 03:00 03:00 Pulse 103 107 104 Resp 30 28 B/P (MAP) 148/68 158/87 155/73 Pulse Ox 99 98 98 100 O2 Delivery Ventilator Ventilator Ventilator Ventilator 05/27/21 05/27/21 05/27/21 05/27/21 04:00 05:00 06:00 07:00 Temp 99.0 99.0 Pulse 72 104 104 99 Resp 20 20 31 B/P (MAP) 131/67 121/69 141/68 153/76 Pulse Ox 100 98 98 98 O2 Delivery Ventilator Ventilator Ventilator Ventilator 05/27/21 05/27/21 05/27/21 05/27/21 07:56 08:00 08:00 08:50 Temp 99.1 99.1 Pulse 98 86 Resp 35 B/P (MAP) 168/64 168/64 Pulse Ox 99 100 O2 Delivery Ventilator Mechanical Ventilator Ventilator 05/27/21 05/27/21 05/27/21 05/27/21 09:00 10:00 11:00 11:30 Pulse 99 54 46 52 Resp 33 33 33 23 B/P (MAP) 145/65 73/34 62/32 123/70 Pulse Ox 99 99 99 99 O2 Delivery Ventilator Ventilator Ventilator Ventilator 05/27/21 05/27/21 05/27/21 05/27/21 11:41 12:00 12:30 13:00 Temp 99.1 99.1 Pulse 68 60 54 Resp 35 21 20 B/P (MAP) 171/82 104/49 92/46 Pulse Ox 100 100 99 100 O2 Delivery Ventilator Ventilator Ventilator Ventilator 05/27/21 05/27/21 13:58 14:00 Pulse 95 Resp 20 B/P (MAP) 157/90 Pulse Ox 98 98 O2 Delivery Ventilator Ventilator Intake and Output 05/26/21 05/26/21 05/27/21 15:00 23:00 07:00 Intake Total 200 ml 2447 ml 1209 ml Output Total 360 ml 990 ml 440 ml Balance -160 ml 1457 ml 769 ml Justifications for Admission Other Justification YUDITH RANGEL MD May 27, 2021 14:39
[2021-05-28] VITALS (27 sets, daily range): BP systolic 81–225; BP diastolic 42–105
[2021-05-28] MEDS: DEXMEDETOMIDINE 400 MCG in IV NORMAL SALINE 100ML 96 ML IV PRN ×3 (04:12→13:40)
[2021-05-28] MEDS: HEPARIN for SUB-Q USE 5,000 UNIT/ML VIAL. SQ SCH ×2 (05:53→12:39)
[2021-05-28] MEDS: HALOPERIDOL LACTATE 5 MG/ML VIAL. IVP SCH ×2 (05:53→12:35)
--- NOTE | 2021-05-28 08:14 | PDOC ---
PULMONARY PROGRESS NOTES DATE: 05/28/21 TIME: 08:12 Subjective Currently sedated Was off sedation yesterday did okay with pressure support Currently on 40% FiO2 Vitals Vital Signs Date Time Temp Pulse Resp B/P (MAP) Pulse Ox O2 Delivery O2 Flow Rate FiO2 05/28/21 07:24 99 Ventilator 05/28/21 06:00 72 20 152/86 05/28/21 04:00 98.9 98.9 Lungs: Other (Decreased breath sounds) Cardiovascular: S1, S2 Extremities: Other (1+) Skin: No Rashes Labs Laboratory Tests Test 05/27/21 00:15 Glucose (Fingerstick) 127 mg/dL (70-99) Medications Active Scripts Medications Dose Route/Sig Max Daily Dose Days Date Category Dose Instructions Easy Neb Compressor Nebulizer (Nebulizer and Compressor) 1 Each Each Each MC PRN PRN 05/01/21 Rx Use with albuterol as needed every 4 hours Albuterol Sulfate Neb Soln (Albuterol Sulfate) 2.5 Mg/3 Ml Vial.neb 1 Vial NEB PRN Q4HRS PRN 30 05/01/21 Rx Levofloxacin 750 Mg Tablet 1 Tab PO DAILY 5 05/01/21 Rx Seroquel (Quetiapine Fumarate) 25 Mg Tablet 25 Mg PO BID 04/26/21 Reported Mysoline (Primidone) 50 Mg Tablet 50 Mg PO DAILY 04/26/21 Reported Escitalopram Oxalate 20 Mg Tablet 20 Mg PO DAILY 03/26/21 Reported Omeprazole 20 Mg Capsule.dr 20 Mg PO DAILY 03/26/21 Reported Eliquis (Apixaban) 5 Mg Tablet 5 Mg PO BID 03/26/21 Reported Lasix (Furosemide) 40 Mg Tablet 40 Mg PO DAILY 03/26/21 Reported Impression . 1. Acute hypoxic respiratory failure secondary to likely hypoxic respiratory arrest leading to cardiac arrest.This is her second intubation in a week, . H/o tracheostomy 2. The patient with underlying history of COVID-19 viral pneumonia in late November and early December, had a trach, decannulated.. She required another hospitalization few weeks ago with respiratory failure, but was successfully extubated. April 27, 2021 3. Status post tracheostomy followed by decannulation.. November,December, [facility] 4. CT revealed no tracheal stenosis, 05/07 5. Underlying obesity. 6. Chronic interstitial lung disease 7. History of bleeding around trach 8. Anemia 9. Left upper extremity weakness. ct head neg 10. Hypotension, possibly related to sedation 11. Hypokalemia. Page of Plan . Updated 05/28 Discussed with RN and RT DC sedation Pressure support throughout the day as tolerated DC Lasix decrease metoprolol Appreciate cardiac input, off of Eliquis for now Monitor H&H Haldol scheduled every [address] KASHMIR BLISS MD May 28, 2021 08:14
[2021-05-28] MEDS: QUEtiapine 25 MG TABLET. PO SCH (08:32)
[2021-05-28] MEDS: CITALOPRAM 20 MG TABLET. PO SCH (08:32)
[2021-05-28] MEDS: PANTOPRAZOLE IV PUSH 40 MG VIAL. IVP SCH (08:33)
[2021-05-28] MEDS: PRIMIDONE 50 MG TABLET PO SCH (08:53)
[2021-05-28] MEDS: ELECTROLYTE (ICU) PROTOCOL. MC SCH (09:00)
[2021-05-28 09:18] LABS: BASO # 0.1 x10^3/uL (0.0-0.2); BASO % 1 % (0-3); EOS # 0.3 x10^3/uL (0.0-0.7); EOS % 3 % (0-3); HEMATOCRIT 23.5 % (36.0-47.0); HEMOGLOBIN 7.8 g/dL (12.0-15.5); LYMPH # 1.5 x10^3/uL (1.0-4.8); LYMPH % 18 % (24-48); MEAN CORPUSCULAR HEMOGLOBIN 29 pg (25-35); MEAN CORPUSCULAR HGB CONC 33 g/dL (31-37); MEAN CORPUSCULAR VOLUME 88 fL (79-100); MONO # 0.5 x10^3/uL (0.0-1.1); MONO % 7 % (0-9); NEUT # 5.9 x10^3/uL (1.8-7.7); NEUT % 71 % (31-73); PLATELET COUNT 373 x10^3/uL (140-400); RED BLOOD COUNT 2.66 x10^6/uL (3.50-5.40); WHITE BLOOD COUNT 8.2 x10^3/uL (4.0-11.0)
[2021-05-28] MEDS ORDERED: HALOPERIDOL LACTATE IVP (09:44)
[2021-05-28] MEDS ORDERED: HEPA50003 SQ (09:44)
--- NOTE | 2021-05-28 09:46 | SNU/HH DC ---
DISCHARGE ORDERS DISCHARGE INFORMATION: DISCHARGE DATE: May 28, 2021 FINAL DIAGNOSIS Problems Medical Problems: (1) Cardiac arrest Status: Acute (2) Hypokalemia Status: Acute (3) Lactic acidosis Status: Acute (4) Pneumonia Status: Acute (5) Respiratory failure, acute Status: Acute (6) Septic shock Status: Acute CONDITION ON DISCHARGE: Stable CODE STATUS: Code Status: Full SENIOR CARE: SNF STAY <30 DAYS: No LTAC: ADMIT TO LTAC: Yes POST DISCHARGE ORDERS: ACTIVITY ORDERS: Activity as tolerated WEIGHT BEARING STATUS: As tolerated DIET AFTER DISCHARGE: tube feeds WOUND/INCISION CARE: Ice to area for comfort CHECKS AFTER DISCHARGE: CHECKS AFTER DISCHARGE: Check blood press - daily, Check your Temp as needed TREATMENT/EQUIPMENT ORDERS: Physical Therapy For: Evalulation/Treatment Occupational Therapy For: Evaluation/Treatment Speech Language Pathology For: Evaluation/Treatment DISCHARGE MEDICATIONS: Home Meds Active Scripts [Haloperidol Lactate Inj] 5 MG/1 ML INJ No Conflict Check, 5 MG IVP Q8HRS for anxiety for 30 Days Prov:VIVIAN MULLINS MD 05/28/21 Heparin Sodium,Porcine (HEPARIN SODIUM) 5,000 Unit/1 Ml Vial, 5000 UNIT SQ Q8HRS for dvt ppx for 30 Days, EACH Prov:VIVIAN MULLINS MD 05/28/21 Nebulizer and Compressor (Easy Neb Compressor Nebulizer) 1 Each Each, EACH MC PRN PRN for SHORTNESS OF BREATH, #1 Use with albuterol as needed every 4 hours Prov:VIVIAN MULLINS MD 05/01/21 Albuterol Sulfate (ALBUTEROL SULFATE NEB SOLN) 2.5 Mg/3 Ml Vial.neb, 1 VIAL NEB PRN Q4HRS PRN for SHORTNESS OF BREATH for 30 Days, #50 VIAL Prov:VIVIAN MULLINS MD 05/01/21 Reported Medications Quetiapine Fumarate (SEROQUEL) 25 Mg Tablet, 25 MG PO BID for anxiety, TAB 04/26/21 Primidone (MYSOLINE) 50 Mg Tablet, 50 MG PO DAILY for tremors, TAB 04/26/21 Escitalopram Oxalate (ESCITALOPRAM OXALATE) 20 Mg Tablet, 20 MG PO DAILY for ANTI-DEPRESSANT, TAB 0 Refills 03/26/21 Omeprazole (OMEPRAZOLE) 20 Mg Capsule.dr, 20 MG PO DAILY for , CAP 03/26/21 Furosemide (LASIX) 40 Mg Tablet, 40 MG PO DAILY for , TAB 03/26/21 Discontinued Reported Medications Apixaban (ELIQUIS) 5 Mg Tablet, 5 MG PO BID for , TAB 03/26/21 Discontinued Scripts Levofloxacin (LEVOFLOXACIN) 750 Mg Tablet, 1 TAB PO DAILY for pneumonia for 5 Days, #5 TAB Prov:VIVIAN MULLINS MD 05/01/21 VIVIAN MULLINS MD May 28, 2021 09:46
[2021-05-28 09:47] LABS: ALBUMIN 2.6 g/dL (3.4-5.0); ALBUMIN/GLOBULIN RATIO 0.7 (1.0-1.7); CALCIUM 8.6 mg/dL (8.5-10.1); CREATININE 0.6 mg/dL (0.6-1.0); TOTAL BILIRUBIN 0.2 mg/dL (0.2-1.0); TOTAL PROTEIN 6.5 g/dL (6.4-8.2)
--- NOTE | 2021-05-28 10:06 | NUR ---
SS following up with discharge planning. SS reviewed pt chart and discussed with pt RN. Pt is currently on the vent at 40%. CPAP trial today. COVID19 negative. Trach in place. Pt accepted at [facility], ; fax [phone], and insurance approval received. Discharge orders received and phoned and faxed to [facility] with clinical updates. Currently awaiting bed availability at this time. Per Vipin at [facility], bed will be available today or tomorrow. SS met with pt's family and discussed. Pt's family remains agreeable and reported that they want pt at [facility]. SS will continue to follow for discharge planning. Addendum: 05/28/21 at 1155 by ISHA MORGAN SS received notification from physician that pt and family are now declining LTACH and are requesting hospice services at this time. Referral phoned and faxed to [facility], ; fax [phone]. Pt's RN notified. Addendum: 05/28/21 at 1417 by ISHA MORGAN ANGELIA contacted SS and reported that they will meet with family at 1730 for hospice evaluation and consents.
--- NOTE | 2021-05-28 11:47 | PDOC ---
[employer] PROGRESS NOTE Date of Service DOS: DATE: 05/28/21 TIME: 11:43 Chief Complaint Chief Complaint Respiratory failure Status post tracheostomy Probable bacterial pneumonia Recent COVID-19 in November of last year Possible tracheal [place] CHF History of tracheostomy with decannulation Chronic anticoagulation with some hemoptysis Septic shock Lactic acidosis Acute hypoxic respiratory failure secondary to likely bacterial pneumonia versus viral pneumonia, septic shock, lactic acidosis consider LTAC placement, she is improving, History of Present Illness History of Present Illness 05/28 Patient evaluated examined at bedside. Actually somewhat alert and able to shake head yes and no to questions. Able to follow some commands. Patient and family are requesting that the [facility] and would like to transition to hospice comfort measures. I asked the patient independently if she wanted care withdrawn and trach removed knowing she will and she shook her head yes. Will contact social work to see if hospice can see today Family also requesting DNR code status 05/27, blood pressure fluctuates a lot, have decreased the metroprolol, low again on , will DC needs fludi and BP supporrt cont other, CPAP as able, calm to LTAC when able 05/26, did very well all day yesterday on CPAP, will try to go 12 hours again today mental status better, some lethargy from meds, but looks good plan LTAC transfer when able ICU here, < 30 minutes today despite 2 visits 05/25, was on CPAP trial on 05/23 for 4 hours, on 05/24, she did a CPAP trial 03/25 50% and went 12 hours today we will do a CPAP trial at 40% with 03/25 and have same goal, much improvement over the past 3 days with CPAP she has been anxious, and req. benzo at times, limiting her breathing, cont tube feeds, has NG tube baltazar cath duet o weakness cont the ICU care 39 minutes today 05/24, cont current doing OK, CPAP trial, repeat from yesterday anxiety up 05/23, blood pressure has swung abotu 100 points since yesterday AM, will add BP meds, sedation was changed, cont urrent appears better, calm 05/22/2021 better and more calm today on seroquel bp better off haldol OK, still propfolol Patient seen and examined in the ICU She remains on the ventilator, on trach AC/20/45/35% with 5 of PEEP Satting 95% Tracheostomy intact Baltazar Has NG feeds SCDs in place She is sedated - opens eyes, does not really follow Vitals/I&O Vitals/I&O: Vital Signs Date Time Temp Pulse Resp B/P (MAP) Pulse Ox O2 Delivery O2 Flow Rate FiO2 05/28/21 11:33 97 Ventilator 05/28/21 06:00 72 20 152/86 05/28/21 04:00 98.9 98.9 I & O 05/27/21 05/27/21 05/28/21 15:00 23:00 07:00 Intake Total 200 ml 784 ml 1215 ml Output Total 180 ml 270 ml 425 ml Balance 20 ml 514 ml 790 ml Physical Exam General: Alert, Cooperative, mild distress Heart: Regular rate Lungs: Other (Decreased breath sounds) Abdomen: Normal bowel sounds Extremities: No clubbing, No cyanosis, Other (LUE is flaccid on exam, brisk reflex) Skin: No significant lesion Labs Labs: Laboratory Tests Test 05/28/21 09:00 White Blood Count 8.2 x10^3/uL (4.0-11.0) Red Blood Count 2.66 x10^6/uL (3.50-5.40) Hemoglobin 7.8 g/dL (12.0-15.5) Hematocrit 23.5 % (36.0-47.0) Mean Corpuscular Volume 88 fL (79-100) Mean Corpuscular Hemoglobin 29 pg (25-35) Mean Corpuscular Hemoglobin Concent 33 g/dL (31-37) Red Cell Distribution Width 15.0 % (11.5-14.5) Platelet Count 373 x10^3/uL (140-400) Neutrophils (%) (Auto) 71 % (31-73) Lymphocytes (%) (Auto) 18 % (24-48) Monocytes (%) (Auto) 7 % (0-9) Eosinophils (%) (Auto) 3 % (0-3) Basophils (%) (Auto) 1 % (0-3) Neutrophils # (Auto) 5.9 x10^3/uL (1.8-7.7) Lymphocytes # (Auto) 1.5 x10^3/uL (1.0-4.8) Monocytes # (Auto) 0.5 x10^3/uL (0.0-1.1) Eosinophils # (Auto) 0.3 x10^3/uL (0.0-0.7) Basophils # (Auto) 0.1 x10^3/uL (0.0-0.2) Sodium Level 141 mmol/L (136-145) Potassium Level 3.0 mmol/L (3.5-5.1) Chloride Level 100 mmol/L (98-107) Carbon Dioxide Level 31 mmol/L (21-32) Anion Gap 10 (6-14) Blood Urea Nitrogen 22 mg/dL (7-20) Creatinine 0.6 mg/dL (0.6-1.0) Estimated GFR (Cockcroft-Gault) 101.0 BUN/Creatinine Ratio 37 (6-20) Glucose Level 122 mg/dL (70-99) Calcium Level 8.6 mg/dL (8.5-10.1) Total Bilirubin 0.2 mg/dL (0.2-1.0) Aspartate Amino Transf (AST/SGOT) 18 U/L (15-37) Alanine Aminotransferase (ALT/SGPT) 29 U/L (14-59) Alkaline Phosphatase 113 U/L (46-116) Total Protein 6.5 g/dL (6.4-8.2) Albumin 2.6 g/dL (3.4-5.0) Albumin/Globulin Ratio 0.7 (1.0-1.7) Assessment and Plan Assessmemt and Plan Problems Medical Problems: (1) Cardiac arrest Status: Acute (2) Hypokalemia Status: Acute (3) Lactic acidosis Status: Acute (4) Pneumonia Status: Acute (5) Respiratory failure, acute Status: Acute (6) Septic shock Status: Acute Comment Review of Relevant I have reviewed the following items davina (where applicable) has been applied. Justifications for Admission Other Justification VIVIAN MULLINS MD May 28, 2021 11:47
[2021-05-28] MEDS: POTASSIUM BICARB 20 MEQ EFFERVESCENT TABLET. PEG SCH ×2 (12:44→12:46)
--- NOTE | 2021-05-28 17:47 | PDOC ---
PROGRESS NOTES Date of Service DATE: 05/28/21 TIME: 17:45 Subjective Subjective Patient seen and examined Objective Objective Vital Signs Date Time Temp Pulse Resp B/P (MAP) Pulse Ox O2 Delivery O2 Flow Rate FiO2 05/28/21 17:00 20 81/42 100 Ventilator 05/28/21 16:00 97.3 49 97.3 05/24/21 20:18 98.0 Intake and Output 05/28/21 07:00 Intake Total 2199 ml Output Total 875 ml Balance 1324 ml IV Total 289 ml Tube Feeding 1526 ml Other 384 ml Output Urine Total 875 ml Gastric Drainage Total 0 ml Physical Exam Abdomen: Normal bowel sounds Heart: Regular rate Extremities: Other General: Other (Remains on a ventilator.) Lungs: Other (Mildly decreased breath sounds) Assessment Assessment Problems Medical Problems: (1) Cardiac arrest Status: Acute (2) Hypokalemia Status: Acute (3) Lactic acidosis Status: Acute (4) Pneumonia Status: Acute (5) Respiratory failure, acute Status: Acute (6) Septic shock Status: Acute 1. Out of hospital acute cardiopulmonary arrest. Significant downtime. The patient remains on a ventilator. Rhythm stable. Echo from 05-15-20 showed an ejection fraction of 65% with moderate tricuspid regurgitation and a PAP of 50 to 52 mmHg. Continue supportive treatment and antibiotics. Ongoing discussion with the patient's family regarding level of care. 2. Respiratory failure. Redo of tracheostomy. Followed by the pulmonary service. 3. Recent treatment with Eliquis. I can find no history of atrial fibrillation or other indications for chronic anticoagulation. Holding Eliquis. Monitoring lab. 4. Anemia. Initial H&H of 6.5 and 19.4. Morning H&H of 7.8/23.5. 5. Hypokalemia. Morning potassium level of 3.0. Being replaced. Comment Review of Relevant I have reviewed the following items davina (where applicable) has been applied. Labs Laboratory Tests Test 05/27/21 00:15 05/28/21 09:00 Glucose (Fingerstick) 127 mg/dL (70-99) White Blood Count 8.2 x10^3/uL (4.0-11.0) Red Blood Count 2.66 x10^6/uL (3.50-5.40) Hemoglobin 7.8 g/dL (12.0-15.5) Hematocrit 23.5 % (36.0-47.0) Mean Corpuscular Volume 88 fL (79-100) Mean Corpuscular Hemoglobin 29 pg (25-35) Mean Corpuscular Hemoglobin Concent 33 g/dL (31-37) Red Cell Distribution Width 15.0 % (11.5-14.5) Platelet Count 373 x10^3/uL (140-400) Neutrophils (%) (Auto) 71 % (31-73) Lymphocytes (%) (Auto) 18 % (24-48) Monocytes (%) (Auto) 7 % (0-9) Eosinophils (%) (Auto) 3 % (0-3) Basophils (%) (Auto) 1 % (0-3) Neutrophils # (Auto) 5.9 x10^3/uL (1.8-7.7) Lymphocytes # (Auto) 1.5 x10^3/uL (1.0-4.8) Monocytes # (Auto) 0.5 x10^3/uL (0.0-1.1) Eosinophils # (Auto) 0.3 x10^3/uL (0.0-0.7) Basophils # (Auto) 0.1 x10^3/uL (0.0-0.2) Sodium Level 141 mmol/L (136-145) Potassium Level 3.0 mmol/L (3.5-5.1) Chloride Level 100 mmol/L (98-107) Carbon Dioxide Level 31 mmol/L (21-32) Anion Gap 10 (6-14) Blood Urea Nitrogen 22 mg/dL (7-20) Creatinine 0.6 mg/dL (0.6-1.0) Estimated GFR (Cockcroft-Gault) 101.0 BUN/Creatinine Ratio 37 (6-20) Glucose Level 122 mg/dL (70-99) Calcium Level 8.6 mg/dL (8.5-10.1) Total Bilirubin 0.2 mg/dL (0.2-1.0) Aspartate Amino Transf (AST/SGOT) 18 U/L (15-37) Alanine Aminotransferase (ALT/SGPT) 29 U/L (14-59) Alkaline Phosphatase 113 U/L (46-116) Total Protein 6.5 g/dL (6.4-8.2) Albumin 2.6 g/dL (3.4-5.0) Albumin/Globulin Ratio 0.7 (1.0-1.7) Laboratory Tests Test 05/28/21 09:00 White Blood Count 8.2 x10^3/uL (4.0-11.0) Red Blood Count 2.66 x10^6/uL (3.50-5.40) Hemoglobin 7.8 g/dL (12.0-15.5) Hematocrit 23.5 % (36.0-47.0) Mean Corpuscular Volume 88 fL (79-100) Mean Corpuscular Hemoglobin 29 pg (25-35) Mean Corpuscular Hemoglobin Concent 33 g/dL (31-37) Red Cell Distribution Width 15.0 % (11.5-14.5) Platelet Count 373 x10^3/uL (140-400) Neutrophils (%) (Auto) 71 % (31-73) Lymphocytes (%) (Auto) 18 % (24-48) Monocytes (%) (Auto) 7 % (0-9) Eosinophils (%) (Auto) 3 % (0-3) Basophils (%) (Auto) 1 % (0-3) Neutrophils # (Auto) 5.9 x10^3/uL (1.8-7.7) Lymphocytes # (Auto) 1.5 x10^3/uL (1.0-4.8) Monocytes # (Auto) 0.5 x10^3/uL (0.0-1.1) Eosinophils # (Auto) 0.3 x10^3/uL (0.0-0.7) Basophils # (Auto) 0.1 x10^3/uL (0.0-0.2) Sodium Level 141 mmol/L (136-145) Potassium Level 3.0 mmol/L (3.5-5.1) Chloride Level 100 mmol/L (98-107) Carbon Dioxide Level 31 mmol/L (21-32) Anion Gap 10 (6-14) Blood Urea Nitrogen 22 mg/dL (7-20) Creatinine 0.6 mg/dL (0.6-1.0) Estimated GFR (Cockcroft-Gault) 101.0 BUN/Creatinine Ratio 37 (6-20) Glucose Level 122 mg/dL (70-99) Calcium Level 8.6 mg/dL (8.5-10.1) Total Bilirubin 0.2 mg/dL (0.2-1.0) Aspartate Amino Transf (AST/SGOT) 18 U/L (15-37) Alanine Aminotransferase (ALT/SGPT) 29 U/L (14-59) Alkaline Phosphatase 113 U/L (46-116) Total Protein 6.5 g/dL (6.4-8.2) Albumin 2.6 g/dL (3.4-5.0) Albumin/Globulin Ratio 0.7 (1.0-1.7) Microbiology 05/18/21 Aerobic Culture - Final, Complete 05/03/21 Blood Culture - Final, Complete NO GROWTH AFTER 5 DAYS Medications Current Medications Propofol 100 ml @ As Directed STK-MED ONCE IV ; Start 05/03/21 at 10:43; Stop 05/03/21 at 10:43; Status DC Norepinephrine Bitartrate 8 mg/ Dextrose 258 ml @ 19.35 mls/ hr 1X ONCE IV Last administered on 05/03/21at 11:20; Start 05/03/21 at 11:15; Stop 05/04/21 at 00:34; Status DC Propofol (Diprivan) 200 mg TITRATE ONCE IV ; Start 05/03/21 at 11:45; Stop 05/03/21 at 11:46; Status UNV Propofol 100 ml @ 3 mls/hr CONT PRN IV PER PROTOCOL Last administered on 05/03/21at 10:50; Start 05/03/21 at 11:45; Stop 05/03/21 at 12:49; Status DC Cefepime HCl (Maxipime) 2 gm 1X ONCE IVP Last administered on 05/03/21at 11:45; Start 05/03/21 at 11:45; Stop 05/03/21 at 11:46; Status DC Vancomycin HCl 1.5 gm/Sodium Chloride 500 ml @ 250 mls/hr 1X ONCE IV ; Start 05/03/21 at 11:45; Stop 05/03/21 at 13:44; Status UNV Sodium Chloride 1,000 ml @ 1,000 mls/hr 1X ONCE IV Last administered on 05/03/21at 10:50; Start 05/03/21 at 11:45; Stop 05/03/21 at 12:44; Status DC Sodium Chloride 1,000 ml @ 1,000 mls/hr 1X ONCE IV Last administered on 05/03/21at 11:00; Start 05/03/21 at 11:45; Stop 05/03/21 at 12:44; Status DC Sodium Chloride 1,000 ml @ 250 mls/hr Q4H IV Last administered on 05/04/21at 03:45; Start 05/03/21 at 11:45; Stop 05/04/21 at 11:44; Status DC Vancomycin HCl 2 gm/Sodium Chloride 500 ml @ 250 mls/hr 1X ONCE IV Last administered on 05/03/21at 12:00; Start 05/03/21 at 12:00; Stop 05/03/21 at 13:59; Status DC Potassium Bicarbonate (Potassium Effervescent Tablet) 40 meq 1X ONCE NG Last administered on 05/03/21at 15:01; Start 05/03/21 at 12:00; Stop 05/03/21 at 12:01; Status DC Potassium Chloride/Water 100 ml @ 100 mls/hr Q1H IV ; Start 05/03/21 at 12:00; Stop 05/03/21 at 12:04; Status DC Apixaban (Eliquis) 5 mg BID PO ; Start 05/03/21 at 21:00; Stop 05/03/21 at 15:54; Status DC Primidone (Mysoline) 50 mg DAILY PO Last administered on 05/28/21at 08:53; Start 05/04/21 at 09:00 Quetiapine Fumarate (SEROquel) 25 mg BID PO Last administered on 05/19/21at 20:49; Start 05/03/21 at 21:00; Stop 05/20/21 at 09:09; Status DC Citalopram Hydrobromide (CeleXA) 20 mg DAILY PO Last administered on 05/28/21at 08:32; Start 05/04/21 at 09:00 Pantoprazole Sodium (PROTONIX VIAL for IV PUSH) 40 mg DAILYAC IVP Last administered on 05/28/21at 08:33; Start 05/04/21 at 07:30 Potassium Chloride/Water 100 ml @ 100 mls/hr Q1H IV Last administered on 05/03/21at 13:43; Start 05/03/21 at 12:00; Stop 05/03/21 at 13:59; Status DC Magnesium Sulfate 50 ml @ 25 mls/hr 1X ONCE IV Last administered on 05/03/21at 15:00; Start 05/03/21 at 12:00; Stop 05/03/21 at 13:59; Status DC Ondansetron HCl (Zofran) 4 mg PRN Q6HRS PRN IVP NAUSEA/VOMITING; Start 05/03/21 at 12:00 Calcium Carbonate/ Glycine (Tums) 500 mg PRN Q3HRS PRN PO HEARTBURN / GAS; Start 05/03/21 at 12:00 Info (Icu Electrolyte Protocol) 1 ea DAILY MC Last administered on 05/28/21at 09:00; Start 05/04/21 at 09:00 Sodium Chloride (Normal Saline Flush) 3 ml QSHIFT PRN IV AFTER MEDS AND BLOOD DRAWS; Start 05/03/21 at 12:00 Potassium Chloride/Water 100 ml @ 100 mls/hr Q1H IV Last administered on 05/03/21at 15:57; Start 05/03/21 at 14:00; Stop 05/03/21 at 15:59; Status DC Fentanyl Citrate 30 ml @ 2.5 mls/hr CONT PRN IV SEE PROTOCOL Last administered on 05/08/21at 06:54; Start 05/03/21 at 12:45; Stop 05/15/21 at 07:41; Status DC Midazolam HCl 100 ml @ 1 mls/hr CONT PRN IV SEE PROTOCOL Last administered on 05/18/21at 08:14; Start 05/03/21 at 12:45 Propofol 100 ml @ 3 mls/hr CONT PRN IV PER PROTOCOL Last administered on 05/24/21at 21:40; Start 05/03/21 at 12:45 Vecuronium Calumet (Norcuron Bolus) 6 mg PRN 1X PRN IV VENT INDUCTION; Start 05/03/21 at 12:45; Stop 05/04/21 at 12:44; Status DC Dexmedetomidine HCl 400 mcg/ Sodium Chloride 100 ml @ 7,500 mls/hr CONT PRN IV PER PROTOCOL Last administered on 05/09/21at 10:42; Start 05/03/21 at 12:45; Stop 05/09/21 at 10:49; Status DC Iohexol (Omnipaque 350 Mg/ml) 100 ml 1X ONCE IV Last administered on 05/03/21at 12:58; Start 05/03/21 at 13:00; Stop 05/03/21 at 13:01; Status DC Info (CONTRAST GIVEN -- Rx MONITORING) 1 each PRN DAILY PRN MC SEE COMMENTS; Start 05/03/21 at 13:00; Stop 05/05/21 at 12:59; Status DC Piperacillin Sod/ Tazobactam Sod (Zosyn Per Pharmacy) 1 each PRN DAILY PRN MC SEE COMMENTS; Start 05/03/21 at 15:15; Stop 05/03/21 at 15:07; Status DC Vancomycin HCl (Vanco Per Pharmacy) 1 each PRN DAILY PRN MC SEE COMMENTS Last administered on 05/11/21at 09:00; Start 05/03/21 at 15:15; Stop 05/11/21 at 14:19; Status DC Cefepime HCl (Maxipime) 1 gm Q8HRS IVP ; Start 05/03/21 at 15:30; Status Cancel Insulin Human Lispro (HumaLOG) 0-7 UNITS TIDWMEALS SQ ; Start 05/03/21 at 17:00; Stop 05/07/21 at 07:52; Status DC Dextrose (Dextrose 50%-Water Syringe) 12.5 gm PRN Q15MIN PRN IV SEE COMMENTS; Start 05/03/21 at 15:15; Stop 05/07/21 at 07:53; Status DC Cefepime HCl (Maxipime) 1 gm Q8HRS IVP Last administered on 05/14/21at 14:23; Start 05/03/21 at 22:00; Stop 05/14/21 at 14:49; Status DC Methylprednisolone Sodium Succinate (SOLU-Medrol 125MG VIAL) 125 mg 1X ONCE IV Last administered on 05/03/21at 15:56; Start 05/03/21 at 15:30; Stop 05/03/21 at 15:31; Status DC Vancomycin HCl 1 gm/Sodium Chloride 250 ml @ 250 mls/hr Q12H IV Last administered on 05/10/21at 00:06; Start 05/04/21 at 00:00; Stop 05/10/21 at 10:46; Status DC Vancomycin HCl (Vancomycin Trough Level) 1 each 1X ONCE MC ; Start 05/04/21 at 23:30; Stop 05/04/21 at 23:31; Status DC Potassium Chloride/Water 100 ml @ 100 mls/hr Q1H IV Last administered on 05/04/21at 09:38; Start 05/04/21 at 08:00; Stop 05/04/21 at 09:59; Status DC Calcium Chloride (Calcium Chloride) 1,000 mg STK-MED ONCE .ROUTE ; Start 05/03/21 at 11:00; Stop 05/04/21 at 12:23; Status DC Sodium Bicarbonate (Sodium Bicarb Adult 8.4% Syr) 50 meq STK-MED ONCE .ROUTE ; Start 05/03/21 at 11:00; Stop 05/04/21 at 12:23; Status DC Epinephrine HCl (EPINEPHrine SYRINGE) 3 mg STK-MED ONCE .ROUTE ; Start 05/03/21 at 11:00; Stop 05/04/21 at 12:23; Status DC Potassium Chloride/Water 100 ml @ 100 mls/hr Q1H IV Last administered on 05/05/21at 12:19; Start 05/05/21 at 09:00; Stop 05/05/21 at 12:59; Status DC Potassium Chloride/Water 100 ml @ 100 mls/hr Q1H IV Last administered on 05/06/21at 11:05; Start 05/06/21 at 10:00; Stop 05/06/21 at 11:59; Status DC Insulin Human Lispro (HumaLOG) 0-7 UNITS Q6HRS SQ ; Start 05/07/21 at 12:00; Stop 05/10/21 at 11:00; Status DC Dextrose (Dextrose 50%-Water Syringe) 12.5 gm PRN Q15MIN PRN IV SEE COMMENTS; Start 05/07/21 at 08:00 Norepinephrine Bitartrate 8 mg/ Dextrose 258 ml @ 21.672 mls/ hr CONT PRN IV PER PROTOCOL Last administered on 05/27/21at 11:21; Start 05/07/21 at 11:30 Vancomycin HCl (Vancomycin Trough Level) 1 each 1X ONCE MC ; Start 05/09/21 at 11:30; Stop 05/09/21 at 11:31; Status DC Metoprolol Tartrate (Lopressor Vial) 5 mg PRN Q6HRS PRN IVP HYPERTENSION Last administered on 05/23/21at 05:55; Start 05/09/21 at 03:45 Scopolamine (Transderm-Scop) 1 patch Q3DAYS TD Last administered on 05/27/21at 08:39; Start 05/09/21 at 10:00 Dexmedetomidine HCl 400 mcg/ Sodium Chloride 100 ml @ 7,500 mls/hr CONT PRN IV PER PROTOCOL; Start 05/09/21 at 11:00; Stop 05/09/21 at 10:56; Status DC Dexmedetomidine HCl 400 mcg/ Sodium Chloride 100 ml @ 5 mls/hr CONT PRN IV PER PROTOCOL Last administered on 05/15/21at 21:21; Start 05/09/21 at 11:00; Stop 05/16/21 at 10:39; Status DC Potassium Bicarbonate (Potassium Effervescent Tablet) 20 meq 1X ONCE PEG Last administered on 05/09/21at 13:56; Start 05/09/21 at 14:00; Stop 05/09/21 at 14:01; Status DC Potassium Bicarbonate (Potassium Effervescent Tablet) 40 meq 1X ONCE PEG Last administered on 05/10/21at 10:23; Start 05/10/21 at 10:00; Stop 05/10/21 at 10:01; Status DC Vancomycin HCl 1.25 gm/Sodium Chloride 250 ml @ 167 mls/hr Q12H IV Last administered on 05/11/21at 11:34; Start 05/10/21 at 12:00; Stop 05/11/21 at 14:19; Status DC Potassium Bicarbonate (Potassium Effervescent Tablet) 40 meq 1X ONCE PO Last administered on 05/11/21at 10:55; Start 05/11/21 at 08:30; Stop 05/11/21 at 08:31; Status DC Midazolam HCl (Versed) 5 mg 1X ONCE IVP Last administered on 05/11/21at 11:34; Start 05/11/21 at 11:30; Stop 05/11/21 at 11:32; Status DC Potassium Chloride/Water 100 ml @ 100 mls/hr Q1H IV Last administered on 05/13/21at 10:23; Start 05/13/21 at 08:30; Stop 05/13/21 at 10:29; Status DC Fentanyl Citrate (Fentanyl 2ml Vial) 25 mcg PRN Q5MIN PRN IVP MILD PAIN 1-3; Start 05/15/21 at 06:00; Stop 05/15/21 at 20:00; Status DC Fentanyl Citrate (Fentanyl 2ml Vial) 50 mcg PRN Q5MIN PRN IVP MODERATE PAIN 4- 6; Start 05/15/21 at 06:00; Stop 05/15/21 at 20:00; Status DC Morphine Sulfate (Morphine Sulfate) 1 mg PRN Q10MIN PRN IVP SEVERE PAIN 7-10; Start 05/15/21 at 06:00; Stop 05/15/21 at 20:00; Status DC Ringer's Solution 1,000 ml @ 30 mls/hr Q24H IV Last administered on 05/15/21at 03:50; Start 05/15/21 at 06:00; Stop 05/15/21 at 17:59; Status DC Hydromorphone HCl (Dilaudid) 0.5 mg PRN Q10MIN PRN IVP SEVERE PAIN 7-10, 2nd CHOICE; Start 05/15/21 at 06:00; Stop 05/15/21 at 20:00; Status DC Prochlorperazine Edisylate (Compazine) 5 mg PACU PRN PRN IVP NAUSEA, MRX1; Start 05/15/21 at 06:00; Stop 05/15/21 at 20:00; Status DC Fentanyl Citrate 55 ml @ 1 mls/hr CONT PRN PRN IV SEE PROTOCOL Last administered on 05/24/21at 20:18; Start 05/15/21 at 07:45 Perflutren Protein Type A Microsphe (Optison) 0.66 mg 1X ONCE IV ; Start 05/15/21 at 07:45; Stop 05/15/21 at 07:46; Status DC Midazolam HCl (Versed) 5 mg 1X ONCE IVP Last administered on 05/15/21at 09:20; Start 05/15/21 at 09:15; Stop 05/15/21 at 09:16; Status DC Bupivacaine HCl/ Epinephrine Bitart (Sensorcain-Epi 0.5% Kit) 30 ml STK-MED ONCE INJ Last administered on 05/15/21at 09:49; Start 05/15/21 at 09:49; Stop 05/15/21 at 10:12; Status DC Cellulose (Surgicel Fibrillar 1x2) 1 each STK-MED ONCE TP Last administered on 05/15/21at 09:49; Start 05/15/21 at 09:49; Stop 05/15/21 at 10:12; Status DC Cellulose (Surgicel Hemostat 2x14) 1 each STK-MED ONCE SURGSITE Last administered on 05/15/21at 09:49; Start 05/15/21 at 09:49; Stop 05/15/21 at 10:12; Status DC Perflutren Protein Type A Microsphe (Optison) 0.66 mg STK-MED ONCE IV ; Start 05/15/21 at 07:00; Stop 05/15/21 at 13:03; Status DC Midazolam HCl (Versed) 5 mg STK-MED ONCE .ROUTE ; Start 05/11/21 at 11:32; Stop 05/15/21 at 13:06; Status DC Perflutren Protein Type A Microsphe (Optison) 0.66 mg STK-MED ONCE IV ; Start 05/15/21 at 06:29; Stop 05/15/21 at 13:44; Status DC Rocuronium Calumet (Zemuron) 100 mg STK-MED ONCE .ROUTE ; Start 05/15/21 at 08:39; Stop 05/15/21 at 13:48; Status DC Fentanyl Citrate (Fentanyl 2ml Vial) 100 mcg STK-MED ONCE .ROUTE ; Start 05/15/21 at 08:39; Stop 05/15/21 at 13:48; Status DC Cellulose (Surgicel Fibrillar 1x2) 1 each STK-MED ONCE .ROUTE ; Start 05/15/21 at 08:42; Stop 05/15/21 at 13:48; Status DC Bupivacaine HCl/ Epinephrine Bitart (Sensorcain-Epi 0.5% Kit) 30 ml STK-MED ONCE .ROUTE ; Start 05/15/21 at 08:43; Stop 05/15/21 at 13:48; Status DC Epinephrine HCl (Adrenalin) 1 mg STK-MED ONCE .ROUTE ; Start 05/15/21 at 08:43; Stop 05/15/21 at 13:48; Status DC Midazolam HCl (Versed) 5 mg STK-MED ONCE .ROUTE ; Start 05/15/21 at 09:09; Stop 05/15/21 at 13:49; Status DC Rocuronium Calumet (Zemuron) 50 mg STK-MED ONCE .ROUTE ; Start 05/15/21 at 09:49; Stop 05/15/21 at 13:49; Status DC Cellulose (Surgicel Hemostat 2x14) 1 each STK-MED ONCE .ROUTE ; Start 05/15/21 at 10:00; Stop 05/15/21 at 13:50; Status DC Perflutren Protein Type A Microsphe (Optison) 0.66 mg 1X ONCE IV Last admi nistered on 05/15/21at 15:03; Start 05/15/21 at 15:15; Stop 05/15/21 at 15:16; Status DC Heparin Sodium (Porcine) (Heparin Sodium) 5,000 unit Q8HRS SQ Last administered on 05/28/21at 12:39; Start 05/16/21 at 14:00 Potassium Chloride/Water 100 ml @ 100 mls/hr Q1H IV Last administered on 05/17/21at 14:09; Start 05/17/21 at 11:00; Stop 05/17/21 at 13:59; Status DC Potassium Bicarbonate (Potassium Effervescent Tablet) 40 meq 1X ONCE PO Last administered on 05/18/21at 08:06; Start 05/18/21 at 07:45; Stop 05/18/21 at 07:46; Status DC Ringer's Solution 1,000 ml @ 1,000 mls/hr 1X ONCE IV Last administered on 05/19/21at 08:42; Start 05/19/21 at 08:45; Stop 05/19/21 at 09:44; Status DC Ringer's Solution 1,000 ml @ 75 mls/hr [id number] IV Last administered on 05/20at 19:38; Start 05/19/21 at 11:30; Stop 05/21/21 at 12:08; Status DC Dexmedetomidine HCl 400 mcg/ Sodium Chloride 100 ml @ 5.85 mls/hr CONT PRN IV PER PROTOCOL Last administered on 05/28/21at 13:40; Start 05/19/21 at 11:30 Sodium Chloride 500 ml @ 500 mls/hr 1X PRN PRN IV SEE COMMENTS Last administered on 05/19/21at 19:50; Start 05/19/21 at 11:30 Atropine Sulfate (ATROPINE 0.5mg SYRINGE) 0.5 mg PRN Q5MIN PRN IV SEE COMMENTS; Start 05/19/21 at 11:30 Haloperidol Lactate (Haldol Inj) 5 mg Q8HRS IVP Last administered on 05/21/21at 05:49; Start 05/20/21 at 09:15; Stop 05/21/21 at 08:47; Status DC Furosemide (Lasix) 40 mg [id number] IVP Last administered on 05/26/21at 12:22; Start 05/20/21 at 14:00; Stop 05/27/21 at 08:25; Status DC Potassium Chloride (Klor-Con) 40 meq 1X ONCE PO Last administered on 05/21/21at 09:08; Start 05/21/21 at 08:45; Stop 05/21/21 at 08:46; Status DC Haloperidol Lactate (Haldol Inj) 5 mg PRN Q8HRS PRN IVP agitation; Start 05/21/21 at 08:45; Stop 05/24/21 at 11:32; Status DC Quetiapine Fumarate (SEROquel) 25 mg BID PO Last administered on 05/28/21at 08:32; Start 05/21/21 at 09:00 Potassium Bicarbonate (Potassium Effervescent Tablet) 40 meq 1X ONCE PEG Last administered on 05/21/21at 09:30; Start 05/21/21 at 09:30; Stop 05/21/21 at 09:31; Status DC Sodium Chloride 1,000 ml @ 75 mls/hr [id number] IV Last administered on 05/23/21at 05:25; Start 05/21/21 at 12:15; Stop 05/24/21 at 10:24; Status DC Potassium Chloride (Klor-Con) 40 meq 1X ONCE PO ; Start 05/22/21 at 08:30; Stop 05/22/21 at 08:47; Status DC Potassium Chloride (Klor-Con) 40 meq Q2H PO ; Start 05/22/21 at 08:30; Stop 05/22/21 at 08:47; Status DC Magnesium Sulfate 50 ml @ 25 mls/hr 1X ONCE IV Last administered on 05/22/21at 09:37; Start 05/22/21 at 08:30; Stop 05/22/21 at 10:29; Status DC Potassium Bicarbonate (Potassium Effervescent Tablet) 40 meq 1X ONCE PEG Last administered on 05/22/21at 09:36; Start 05/22/21 at 08:30; Stop 05/22/21 at 08:36; Status DC Potassium Bicarbonate (Potassium Effervescent Tablet) 40 meq 1X ONCE PO Last administered on 05/22/21at 10:41; Start 05/22/21 at 10:30; Stop 05/22/21 at 10:31; Status DC Metoprolol Tartrate (Lopressor) 50 mg BID PO Last administered on 05/26/21at 08:34; Start 05/23/21 at 09:00; Stop 05/26/21 at 14:32; Status DC Hydralazine HCl (Apresoline Inj) 10 mg PRN Q4HRS PRN IVP ELEVATED BP, SEE COMMENTS Last administered on 05/23/21at 09:03; Start 05/23/21 at 09:00 Potassium Bicarbonate (Potassium Effervescent Tablet) 60 meq 1X ONCE PO Last administered on 05/23/21at 11:45; Start 05/23/21 at 11:00; Stop 05/23/21 at 11:01; Status DC Potassium Bicarbonate (Potassium Effervescent Tablet) 40 meq 1X ONCE PEG Last administered on 05/24/21at 11:16; Start 05/24/21 at 10:30; Stop 05/24/21 at 10:32; Status DC Potassium Bicarbonate (Potassium Effervescent Tablet) 40 meq 1X ONCE PEG Last administered on 05/24/21at 14:33; Start 05/24/21 at 14:30; Stop 05/24/21 at 14:31; Status DC Haloperidol Lactate (Haldol Inj) 5 mg Q8HRS IVP Last administered on 05/28/21at 12:35; Start 05/24/21 at 11:45 Potassium Bicarbonate (Potassium Effervescent Tablet) 40 meq 1X ONCE PEG Last administered on 05/25/21at 09:03; Start 05/25/21 at 08:45; Stop 05/25/21 at 08:47; Status DC Potassium Bicarbonate (Potassium Effervescent Tablet) 40 meq 1X ONCE PEG Last administered on 05/25/21at 13:46; Start 05/25/21 at 14:00; Stop 05/25/21 at 14:01; Status DC Metoprolol Tartrate (Lopressor) 25 mg BID PO ; Start 05/26/21 at 21:00; Stop 05/27/21 at 08:25; Status DC Albumin Human 100 ml @ 100 mls/hr 1X ONCE IV Last administered on 05/26/21at 14:53; Start 05/26/21 at 14:45; Stop 05/26/21 at 15:44; Status DC Sodium Chloride 1,000 ml @ 1,000 mls/hr 1X ONCE IV Last administered on 05/26/21at 14:00; Start 05/26/21 at 15:00; Stop 05/26/21 at 15:59; Status DC Metoprolol Tartrate (Lopressor) 25 mg DAILY PO Last administered on 05/27/21at 08:50; Start 05/27/21 at 09:00; Stop 05/27/21 at 10:38; Status DC Potassium Bicarbonate (Potassium Effervescent Tablet) 40 meq Q2H PEG Last administered on 05/28/21at 12:46; Start 05/28/21 at 12:00; Stop 05/28/21 at 14:01; Status DC Active Scripts Active [Haloperidol Lactate Inj] 5 MG/1 ML Inj 5 Mg IVP Q8HRS 30 Days Heparin Sodium (Heparin Sodium,Porcine) 5,000 Unit/1 Ml Vial 5,000 Unit SQ Q8HRS 30 Days Easy Neb Compressor Nebulizer (Nebulizer and Compressor) 1 Each Each Each MC PRN PRN Use with albuterol as needed every 4 hours Albuterol Sulfate Neb Soln (Albuterol Sulfate) 2.5 Mg/3 Ml Vial.neb 1 Vial NEB PRN Q4HRS PRN 30 Days Reported Seroquel (Quetiapine Fumarate) 25 Mg Tablet 25 Mg PO BID Mysoline (Primidone) 50 Mg Tablet 50 Mg PO DAILY Escitalopram Oxalate 20 Mg Tablet 20 Mg PO DAILY Omeprazole 20 Mg Capsule.dr 20 Mg PO DAILY Lasix (Furosemide) 40 Mg Tablet 40 Mg PO DAILY Vitals/I & O Vital Sign - Last 24 Hours 05/27/21 05/27/21 05/27/21 05/27/21 17:48 18:00 19:00 20:00 Pulse 58 59 Resp 20 20 B/P (MAP) 160/82 127/64 Pulse Ox 99 99 100 99 O2 Delivery Ventilator Ventilator Ventilator Ventilator 05/27/21 05/27/21 05/27/21 05/27/21 20:00 20:00 21:00 22:00 Temp 97.8 97.8 Pulse 58 48 73 Resp 20 20 20 B/P (MAP) 124/62 96/56 113/82 Pulse Ox 99 99 97 O2 Delivery Ventilator Mechanical Ventilator Ventilator Ventilator 05/27/21 05/28/21 05/28/21 05/28/21 23:00 00:00 00:00 01:00 Temp 98.4 98.4 Pulse 88 78 86 Resp 25 25 26 B/P (MAP) 100/56 145/78 166/80 Pulse Ox 99 98 97 99 O2 Delivery Ventilator Ventilator Ventilator Ventilator 05/28/21 05/28/21 05/28/21 05/28/21 02:00 03:00 03:00 04:00 Temp 98.9 98.9 Pulse 75 47 73 Resp 22 20 20 B/P (MAP) 143/75 89/61 154/80 Pulse Ox 99 99 100 100 O2 Delivery Ventilator Ventilator Ventilator Ventilator 05/28/21 05/28/21 05/28/21 05/28/21 05:00 06:00 07:00 07:24 Pulse 95 72 80 Resp 25 20 20 B/P (MAP) 166/83 152/86 170/89 Pulse Ox 99 98 99 99 O2 Delivery Ventilator Ventilator Ventilator Ventilator 05/28/21 05/28/21 05/28/21 05/28/21 08:00 08:00 08:11 08:15 Temp 97.7 97.7 Pulse 60 58 Resp 20 13 B/P (MAP) 177/84 102/60 Pulse Ox 100 99 100 O2 Delivery Mechanical Ventilator Ventilator Ventilator Ventilator 05/28/21 05/28/21 05/28/21 05/28/21 08:30 08:45 09:00 09:15 Pulse 54 50 50 56 Resp 19 12 14 21 B/P (MAP) 125/60 106/56 105/52 120/58 Pulse Ox 100 100 99 100 O2 Delivery Ventilator Ventilator Ventilator Ventilator 05/28/21 05/28/21 05/28/21 05/28/21 09:30 09:45 10:00 10:15 Pulse 68 82 112 114 Resp 20 23 31 30 B/P (MAP) 156/71 183/82 183/82 225/94 Pulse Ox 100 100 100 100 O2 Delivery Ventilator Ventilator Ventilator Ventilator 05/28/21 05/28/21 05/28/21 05/28/21 10:20 11:00 11:33 12:00 Temp 98.0 98.0 Pulse 80 94 90 Resp 20 27 20 B/P (MAP) 191/83 168/89 201/105 Pulse Ox 99 100 97 99 O2 Delivery Ventilator Ventilator Ventilator Ventilator 05/28/21 05/28/21 05/28/21 05/28/21 13:00 14:00 15:00 15:25 Pulse 56 64 44 Resp 20 20 20 B/P (MAP) 165/71 117/54 85/45 Pulse Ox 99 100 100 96 O2 Delivery Ventilator Ventilator Ventilator Ventilator 05/28/21 05/28/21 16:00 17:00 Temp 97.3 97.3 Pulse 49 Resp 20 20 B/P (MAP) 131/72 81/42 Pulse Ox 100 100 O2 Delivery Ventilator Ventilator Intake and Output 05/27/21 05/27/21 05/28/21 15:00 23:00 07:00 Intake Total 200 ml 784 ml 1215 ml Output Total 180 ml 270 ml 425 ml Balance 20 ml 514 ml 790 ml Justifications for Admission Other Justification YUDITH RANGEL MD May 28, 2021 17:47
--- NOTE | 2021-05-28 18:25 | NUR ---
side. Brief explanation of 2 visitors at a time and need for face masks Told by short brother that' "You can go". Questioned if comment was for me and he said "YES' Demanded to talk to a DR now. Questioned what the need was . Told me " my mom is dieing". Unaware of status change. Am assess showed improvement over past [address] Aguilar on unit-family informed he would be in shortly. Martha is alert/oriented,nods appropriately to yes/no questions,communicates w gestures and follows verbal commands appropriately.Able to convey to family she did no wish to be ventilated and wanted no furthe part in prolonged care . Dr Aguilar in w patient wishes expressed and ubnderstood. DNR status instigated.
--- NOTE | 2021-05-28 19:19 | NUR ---
Pt transferred to inpatient hospice.
--- NOTE | 2021-05-28 19:44 | NUR ---
late entry: all day event for short son being angry,hostile,unco operative.belligerent,disrespectful... .Drug Regulatory Affairs Specialist x2 and guard up once again after mask issue and 2 people in room explained in detail. Asking to speak w hospice. william in late afternoon . Plan to use in house hospice.Necessary papers signed. Start process.
--- NOTE | 2021-05-29 10:26 | PDOC ---
[employer] PROGRESS NOTE Date of Service DOS: DATE: 05/29/21 TIME: 10:24 Chief Complaint Chief Complaint Respiratory failure Status post tracheostomy Probable bacterial pneumonia Recent COVID-19 in November of last year Possible tracheal [place] CHF History of tracheostomy with decannulation Chronic anticoagulation with some hemoptysis Septic shock Lactic acidosis Acute hypoxic respiratory failure secondary to likely bacterial pneumonia versus viral pneumonia, septic shock, lactic acidosis consider LTAC placement, she is improving, History of Present Illness History of Present Illness 05/29/2021 Patient seen and examined She has 2 family members at the bedside Patient is tachypneic Trach appears clean We are currently doing comfort care Discussed with RN Discussed with case management Prognosis appears terminal 05/28 Patient evaluated examined at bedside. Actually somewhat alert and able to shake head yes and no to questions. Able to follow some commands. Patient and family are requesting that the do not [facility] and would like to transition to hospice comfort measures. I asked the patient independently if she wanted care withdrawn and trach removed knowing she will and she shook her head yes. Will contact social work to see if hospice can see today Family also requesting DNR code status 05/27, blood pressure fluctuates a lot, have decreased the metroprolol, low again on , will DC needs fludi and BP supporrt cont other, CPAP as able, calm to LTAC when able 05/26, did very well all day yesterday on CPAP, will try to go 12 hours again today mental status better, some lethargy from meds, but looks good plan LTAC transfer when able ICU here, < 30 minutes today despite 2 visits 05/25, was on CPAP trial on 05/23 for 4 hours, on 05/24, she did a CPAP trial 03/25 50% and went 12 hours today we will do a CPAP trial at 40% with 03/25 and have same goal, much impro vement over the past 3 days with CPAP she has been anxious, and req. benzo at times, limiting her breathing, cont tube feeds, has NG tube baltazar cath duet o weakness cont the ICU care 39 minutes today 05/24, cont current doing OK, CPAP trial, repeat from yesterday anxiety up 05/23, blood pressure has swung abotu 100 points since yesterday AM, will add BP meds, sedation was changed, cont urrent appears better, calm 05/22/2021 better and more calm today on seroquel bp better off haldol OK, still propfolol Patient seen and examined in the ICU She remains on the ventilator, on trach AC/20/45/35% with 5 of PEEP Satting 95% Tracheostomy intact Baltazar Has NG feeds SCDs in place She is sedated - opens eyes, does not really follow Vitals/I&O Vitals/I&O: Vital Signs Date Time Temp Pulse Resp B/P (MAP) Pulse Ox O2 Delivery O2 Flow Rate FiO2 05/28/21 18:00 50 20 103/51 98 Ventilator 05/28/21 16:00 97.3 97.3 I & O 05/28/21 05/28/21 05/29/21 15:00 23:00 07:00 Intake Total 200 ml 100 ml Output Total 350 ml Balance 200 ml -250 ml Physical Exam General: Other (Remains on a ventilator.) Heart: Regular rate Lungs: Other (Decreased breath sounds) Abdomen: Normal bowel sounds Extremities: Other Skin: No significant lesion Assessment and Plan Assessmemt and Plan Problems Medical Problems: (1) Cardiac arrest Status: Acute (2) Hypokalemia Status: Acute (3) Lactic acidosis Status: Acute (4) Pneumonia Status: Acute (5) Respiratory failure, acute Status: Acute (6) Septic shock Status: Acute Respiratory failure Probable bacterial pneumonia Recent COVID-19 in November of last year Possible tracheal [place] History of tracheostomy with decannulation Chronic anticoagulation with some hemoptysis Septic shock Lactic acidosis Acute hypoxic respiratory failure secondary to likely bacterial pneumonia versus viral pneumonia, septic shock, lactic acidosis Plan Inpatient hospice comfort care Comment Review of Relevant I have reviewed the following items davina (where applicable) has been applied. Medications: Current Medications Medications (Trade) Dose Ordered Sig/Qing Route PRN Reason Start Time Stop Time Status Last Admin Dose Admin Potassium Bicarbonate (Potassium Effervescent Tablet) 40 meq Q2H PEG 05/28/21 12:00 05/28/21 14:01 DC 05/28/21 12:46 Justifications for Admission Other Justification LUCERO PERAZA III DO May 29, 2021 10:26
== END 2021-05-28 19:33 | disposition hospice, inpatient (51) | DRG 4 ==
LOC: ER 10:36 → 1 WEST ICU 11:30
PROVIDERS: ADMIT Student in an Organized Health Care Education/Training Program; ATTEND Student in an Organized Health Care Education/Training Program
PROC: 5A1955Z Respiratory Ventilation, Greater than 96 Consecutive Hours (ICD-10-PCS; principal; 2021-05-03)
PROC: 0BH17EZ Insertion of Endotracheal Airway into Trachea, Via Natural or Artificial Opening (ICD-10-PCS; 2021-05-03)
PROC: 02HV33Z Insertion of Infusion Device into Superior Vena Cava, Percutaneous Approach (ICD-10-PCS; 2021-05-03)
PROC: B548ZZA Ultrasonography of Superior Vena Cava, Guidance (ICD-10-PCS; 2021-05-03)
PROC: 0B110F4 Bypass Trachea to Cutaneous with Tracheostomy Device, Open Approach (ICD-10-PCS; 2021-05-15)
PROC: 0BJ08ZZ Inspection of Tracheobronchial Tree, Via Natural or Artificial Opening Endoscopic (ICD-10-PCS; 2021-05-15)
PROC: 02HV33Z Insertion of Infusion Device into Superior Vena Cava, Percutaneous Approach (ICD-10-PCS; 2021-05-18)
PROC: B548ZZA Ultrasonography of Superior Vena Cava, Guidance (ICD-10-PCS; 2021-05-18)
PROC: 30233N1 Transfusion of Nonautologous Red Blood Cells into Peripheral Vein, Percutaneous Approach (ICD-10-PCS; 2021-05-22)
DX: A41.9 Sepsis, unspecified organism (principal); I26.99 Other pulmonary embolism without acute cor pulmonale; I46.9 Cardiac arrest, cause unspecified; J96.21 Acute and chronic respiratory failure with hypoxia; J96.22 Acute and chronic respiratory failure with hypercapnia; R65.21 Severe sepsis with septic shock; J15.9 Unspecified bacterial pneumonia; J84.9 Interstitial pulmonary disease, unspecified; G93.1 Anoxic brain damage, not elsewhere classified; I13.0 Hypertensive heart and chronic kidney disease with heart failure and stage 1 through stage 4 chronic kidney disease, or unspecified chronic kidney disease; I50.30 Unspecified diastolic (congestive) heart failure; D63.8 Anemia in other chronic diseases classified elsewhere; E66.9 Obesity, unspecified; E87.6 Hypokalemia; F41.9 Anxiety disorder, unspecified; I07.1 Rheumatic tricuspid insufficiency; J38.6 Stenosis of larynx; N18.9 Chronic kidney disease, unspecified; U09.9 Post COVID-19 condition, unspecified; Z51.5 Encounter for palliative care; Z79.01 Long term (current) use of anticoagulants; Z82.49 Family history of ischemic heart disease and other diseases of the circulatory system; Z83.3 Family history of diabetes mellitus; Z87.01 Personal history of pneumonia (recurrent); Z20.822 Contact with and (suspected) exposure to COVID-19; Z66 Do not resuscitate
CPT/HCPCS: 96365; 96375; 99285; C8929; 36415; 36430; 36569; 36600; 70450; 70490; 71045; 71275; 80048; 80053; 80202; 82310; 82805; 82962; 83605; 83690; 83735; 83880; 84100; 84132; 84145; 84484; 85007; 85014; 85018; 85025; 85027; 85379; 85610; 85730; 86850; 86900; 86901; 86920; 87040; 87071; 87428; 87641; 93005; 94003; A4213; A4364; A4930; A7521; A7526; C9113; J0171; J0360; J0692; J1630; J1644; J1815; J1940; J2250; J2704; J2930; J3010; J3370; J3475; J3480; J3490; J7030; J7040; J7050; J7060; J7120; P9016; P9046; Q9956; Q9967; U0003; U0005; G0378

== ENCOUNTER 2021-05-28 19:31 | Inpatient (IN) | payer OTHER ==
[~2021-05-28] VITALS: Ht 165.1 cm; Wt 102.1 kg
[~2021-05-28 19:31] MED LIST changes: +HALOPERIDOL LACTATE IVP; +HEPA50003 SQ
[2021-05-28] MEDS ORDERED: MORPHINE SULFATE 20 MG/ML CONC SOLUTION. SL PRN (19:45)
[2021-05-28] MEDS ORDERED: PROMETHAZINE 25 MG SUPP.RECT. PR PRN (19:45)
[2021-05-28] MEDS ORDERED: ACETAMINOPHEN 650 MG SUPP.RECT. PR PRN (19:45)
[2021-05-28] MEDS ORDERED: BISACODYL 10 MG SUPP.RECT. PR PRN (19:45)
[2021-05-28] MEDS: MORPHINE SULFATE 2 MG/ML INJ. IV PRN ×2 (20:03→23:08)
--- NOTE | 2021-05-28 20:30 | NUR ---
Pt transferred to inpatient hospice at 194, Hospice orders in place. 2024 Vent removed from trach and cuff deflated per family request. R jony RANGEL also removed. Son and daughter at bedside.
[2021-05-28 21:12] VITALS: BP 164/75
--- NOTE | 2021-05-28 22:30 | NUR ---
Rec'd from ICU. Patient is tachypneic, eyes open, face warm and flushed. Family at bedside.
[2021-05-29] MEDS: MORPHINE SULFATE 2 MG/ML INJ. IV PRN ×9 (01:54→17:02)
[2021-05-29 07:00] VITALS: BP 127/70
--- NOTE | 2021-05-29 07:46 | NUR ---
Patient resp 46, sat reading in 30's. Son at bedside. Patient was given 1 mg Ativan IV. Call being placed to attending, will request increased frequency of morphine available.
--- NOTE | 2021-05-29 13:00 | NUR ---
Patient expression appears slightly less tense than this am. family at bedside (son left for period) Pt non verbal. Family has related that they believe pt is tracking their faces, has appeared to look towards television. Have reinforced to family that all visitors need to wear masks at all times. Have reinforced that no children are allowed at this time, and this has been confirmed with administration, family indicates knowledge of this, though son not in agreement and became irritable.
--- NOTE | 2021-05-29 13:19 | SNU/HH DC ---
DISCHARGE ORDERS DISCHARGE INFORMATION: DISCHARGE DATE: May 28, 2021 FINAL DIAGNOSIS hypoxic respiratory failure CONDITION ON DISCHARGE: Stable HOSPICE: HOSPICE: Yes HOSPICE EVAL & TREAT: Yes POST DISCHARGE ORDERS: ACTIVITY ORDERS: Activity as tolerated WEIGHT BEARING STATUS: As tolerated DIET AFTER DISCHARGE: tube feeds WOUND/INCISION CARE: Ice to area for comfort TREATMENT/EQUIPMENT ORDERS: Speech Language Pathology For: Evaluation/Treatment DISCHARGE MEDICATIONS: Home Meds Active Scripts [Haloperidol Lactate Inj] 5 MG/1 ML INJ No Conflict Check, 5 MG IVP Q8HRS for anxiety for 30 Days Prov:VIVIAN MULLINS MD 05/28/21 Heparin Sodium,Porcine (HEPARIN SODIUM) 5,000 Unit/1 Ml Vial, 5000 UNIT SQ Q8HRS for dvt ppx for 30 Days, EACH Prov:VIVIAN MULLINS MD 05/28/21 Nebulizer and Compressor (Easy Neb Compressor Nebulizer) 1 Each Each, EACH MC PRN PRN for SHORTNESS OF BREATH, #1 Use with albuterol as needed every 4 hours Prov:VIVIAN MULLINS MD 05/01/21 Albuterol Sulfate (ALBUTEROL SULFATE NEB SOLN) 2.5 Mg/3 Ml Vial.neb, 1 VIAL NEB PRN Q4HRS PRN for SHORTNESS OF BREATH for 30 Days, #50 VIAL Prov:VIVIAN MULLINS MD 05/01/21 Reported Medications Quetiapine Fumarate (SEROQUEL) 25 Mg Tablet, 25 MG PO BID for anxiety, TAB 04/26/21 Primidone (MYSOLINE) 50 Mg Tablet, 50 MG PO DAILY for tremors, TAB 04/26/21 Escitalopram Oxalate (ESCITALOPRAM OXALATE) 20 Mg Tablet, 20 MG PO DAILY for ANTI-DEPRESSANT, TAB 0 Refills 03/26/21 Omeprazole (OMEPRAZOLE) 20 Mg Capsule.dr, 20 MG PO DAILY for , CAP 03/26/21 Furosemide (LASIX) 40 Mg Tablet, 40 MG PO DAILY for , TAB 03/26/21 Discontinued Reported Medications Apixaban (ELIQUIS) 5 Mg Tablet, 5 MG PO BID for , TAB 03/26/21 Discontinued Scripts Levofloxacin (LEVOFLOXACIN) 750 Mg Tablet, 1 TAB PO DAILY for pneumonia for 5 Days, #5 TAB Prov:VIVIAN MULLINS MD 05/01/21 VIVIAN MULLINS MD May 29, 2021 13:19
[2021-05-29] MEDS ORDERED: IV NORMAL SALINE 1000ML BAG 1,000 ML IV SCH (16:30)
[2021-05-29] MEDS ORDERED: NALOXONE 0.4 MG/ML VIAL. IV PRN (16:30)
[2021-05-29] MEDS: MORPHINE SULFATE 30 ML IV PRN ×2 (18:48→23:27)
--- NOTE | 2021-05-29 19:47 | NUR ---
Patient's son at bedside does not think his mother is having enough pain relief, vale Bartlett increased continuous dose to 4 at 1940. monitoring
--- NOTE | 2021-05-29 20:25 | NUR ---
This residential mortgage underwriter enters patient's room, notices 5 people in the room, the family is informed that there is a 3 visitor limit, and no children (as there was a young girl--[id number]--), are allowed, The son Tushar (I believe), reports, 'she just wanted to say good by to her grandmother..', this residential mortgage underwriter encourages young girl to do so, and was beginning to say that I understand...The son Tushar, stops No---stop right there..you don't say anything to her!" As 'tushar and young girl, accompanied by another young woman leaves the room, Tushar reports, "I home you can live with yourself!" Then staff at [facility] report that Tushar walks down the hallway without a mask on, as per anyone in the hospital (including all staff), are required to do. Jacque Graves, supervisor production noted of the incident, she is to speak with security.
--- NOTE | 2021-05-29 20:45 | NUR ---
Patient's morphine SUPPORT CLERK is increased to 6mg/hr continuous, observed per Lisa
--- NOTE | 2021-05-29 22:35 | NUR ---
Family left, wants to be called if any changes, entered room, patient's rr 28 per minute, does not appear to be in distress, respiratory rate/pattern regular, non-labored. monitoring..
--- NOTE | 2021-05-29 23:31 | NUR ---
Patient's SUPERVISOR BOILERMAKING SHOP syringe empty, changed, respiratory rate 26, non-labored, rhythmic, monitoring
--- NOTE | 2021-05-30 00:56 | NUR ---
Monitoring patient, rr 16, non-labored, appears to be comfortable without agonal breathing.
--- NOTE | 2021-05-30 01:42 | NUR ---
This creative writer enters patient's room for check, did not appear to be breathing, Lisa, rn, verified, gag reflex not observed, without heart beat, respirations not heard nor visualized, and verified per Lisa collazo
--- NOTE | 2021-05-30 01:45 | NUR ---
Lisa Sanches, she is to call Mignon.
--- NOTE | 2021-05-30 03:50 | NUR ---
Daughter, Mignon, and son-in-law present, they report that son, Tushar, will not be here to visit, Daughter reports that patient does not have any valuables, gives home designation to Hospice nurse,
--- NOTE | 2021-05-30 05:10 | NUR ---
Patient taken to hospital [facility] [place], her eyes has saline instilled, with ice pack covering her eyes.
== END 2021-05-30 05:10 | DRG 189 ==
LOC: 1 WEST ICU 19:31 → 5 NORTH 22:30
PROVIDERS: ADMIT Student in an Organized Health Care Education/Training Program; ATTEND Student in an Organized Health Care Education/Training Program
DX: J96.91 Respiratory failure, unspecified with hypoxia (principal); Z79.899 Other long term (current) drug therapy; Z88.0 Allergy status to penicillin; Z91.040 Latex allergy status
CPT/HCPCS: J2060; J2270; G0378